=== PATIENT | female | born 1950 | race Caucasian/White ===

== ENCOUNTER 2019-06-02 12:30 | Outpatient (RCR) | payer MEDICARE, MEDICAID, SELFPAY ==
--- NOTE | 2019-04-13 13:41 | PTOPEVAL ---
Thank you for referring this patient to [facility]. Please review, sign, date and return this plan of care EL. Pt seen for physical therapy evaluation today due to chronic back and knee pain, decreased endurance from recent bout of pneumonia and decreased tolerance with daily activities. She requires additional skilled therapy for instruction in HEP and progression of functional mobility. I agree with and certify that the following plan of care is medically necessary. Referring Physician Date Admitting Provider: Brandon Linda MD Referring Provider: *PT Outpatient Evaluation Start: 04/13/19 12:28 Freq: Status: Active Protocol: Document 04/13/19 12:30 CAP (Rec: 04/13/19 13:32 CAP [email or web address]) Therapy Assessment Status Assessment Status Assessment Status Evaluation Outpatient Past Medical History Neurological History Hx Neurological Disorders No Significant History Cardiovascular History Hx Hypercholesterolemia Yes Hx Hypertension Yes Respiratory History Hx Bronchitis Yes Hx Chronic Obstructive Pulmonary Disease Yes (COPD) Hx Sleep Apnea Yes Gastrointestinal History Hx Gastrointestinal Disorders No Significant History Genitourinary History Hx Genitourinary Disorders No Significant History Musculoskeletal History Hx Arthritis Yes Hx Scoliosis Yes Hematological History Hx Hematological Disorders No Significant History Endocrine History Hx Hypothyroidism Yes HEENT History Hx Dental Problems Yes Reproductive History Hx Hysterectomy Yes Psychosocial History Hx Anxiety Yes: Panic attacks Hx Depression Yes Pain History History of Any Previous or Ongoing No Significant History Instance of Pain Anesthesia History Hx Anesthesia Reactions No Significant History Evaluation Information Problem Diagnosis brian knee and back pain Onset years Cause chronic Subjective Information Pt reports prolonged back and Query Text:As Reported By Patient/ hip pain. She reports Family increased brian lat hip pain with lying sidelying. Reports her knee is constant, but increased with during the winter. She reports she has been in the hospital due to pneumonia. STates she has has 3 bouts of pneumonia in 2019. She has been sleeping in her recliner at home due to pneumonia. [facility] spends most
--- NOTE | 2019-04-28 12:34 | PCPTNOTE ---
Patient called & cancelled scheduled appointment this date due to weather.
--- NOTE | 2019-05-05 15:17 | PCPTNOTE ---
Patient called & cancelled scheduled appointment this date due to illness.
--- NOTE | 2019-05-12 13:47 | PCPTNOTE ---
Patient did not show up for scheduled appointment this date.Called pt due to no show.
--- NOTE | 2019-05-12 17:24 | PTOPEVAL ---
Thank you for referring this patient to [facility]. Please review, sign, date and return this plan of care EL. Pt has attended 3 therapy visits to address pain and limited functional mobility tolerance. She demonstrates limited progress with strength, functional mobility and endurance. She demonstrates improved balance. Cont PT 1x/wk x 3 wk. I agree with and certify that the following plan of care is medically necessary. Referring Physician Date Attending Provider: Brandon Linda MD Referring Provider: *PT Outpatient Re-Evaluation Start: 04/13/19 12:28 Freq: Status: Active Protocol: Document 05/12/19 13:52 CAP (Rec: 05/12/19 14:22 CAP [email or web address]) Therapy Assessment Status Assessment Status Evaluation Information Problem Diagnosis brian knee and back pain Onset years Cause chronic Additional Evaluation Detail Pt reports prolonged back and hip pain. She reports increased brian lat hip pain with lying sidelying. Reports her knee is constant, but increased with during the winter. She reports she has been in the hospital due to pneumonia. STates she has has 3 bouts of pneumonia in 2019. She has been sleeping in her recliner at home due to pneumonia. States spends most of her day in her recliner. She does have an elevating bed to assist with her breathing. States she performs limited community mobility. She will use a scooter at [facility], but will walk [place]. She performs mostly household mobility. States she had a fall ~ 1 month ago when she tripped on [facility]. She has been using oxygen since 2008. She is on 2L O2 at rest and 4 L with activities, but she forgets to increase with activity. 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 She tries to stay on 1st rooms at the hotels. Pain Assessment Timing of Pain Assessment Timing o
--- NOTE | 2019-05-26 15:28 | PCPTNOTE ---
Patient's scheduled appointment cancelled this date due to being 30 mins late, when asked why she was late, she stated that she thought all of her appointment were at 1:30pm. Also, asked is she received a print out of her schedule, she stated yes but, didn't know where it was. Gave her a new printout, for next appointment on 06/02/19.[ ] [ ]
[2019-06-02 12:40] VITALS: PULSE 104; O2SAT 92
--- NOTE | 2019-06-02 16:45 | PTOPEVAL ---
Thank you for referring this patient to [facility]. Please review, sign, date and return this plan of care EL. Pt has attended 5 therapy visits with 3 cancelled appointments to address her chronic pain. She has achieved maximal potential with skilled therapy with indep with HEP. DC skilled therapy at this time. I agree with and certify that the following plan of care is medically necessary. Referring Physician Date Attending Provider: Brandon Linda MD Referring Provider: *PT Outpatient Discharge Note Start: 04/13/19 12:28 Freq: Status: Active Protocol: Document 06/02/19 12:40 CAP (Rec: 06/02/19 13:27 CAP [email or web address]) Therapy Assessment Status Assessment Status Assessment Status Discharge Evaluation Information Problem Diagnosis brian knee and back pain Onset years Cause chronic Subjective Information She reports she is able to Query Text:As Reported By Patient/ move better. She is able to Family stand better. Reports her leg is better with walking and standing. She is performing a walking and HEP consistently. She had a fall 1 1/2 wks ago when she was protecting her dog. She hit her full right side on the steps/door frame. She trying to walk more, but remains limited by her breathing. She is to perform standing for 10-15' intervals before she has to rest. She is not monitoring her O2 level, but basing regina on fatigue and SOB. She will walk shorter distance in the community without difficulty, but [facility]. Pain Assessment Timing of Pain Assessment Timing of Pain Assessment Re-assessment Pain Scale Pain Scale Used Numeric (1 - 10) Self Report Pain Assessment Left Foot/Feet Reported Pain Level 2 Pain Description Dull Pain Frequency Chronic Current Pain Intensity 2 Pain Behaviors None Bilateral Back Reported Pain Level 0 Pain Description Aching Pain Frequency Chronic,Intermittent Current Pain Intensity 0 Greatest Pain Intensity 3 Pain Behaviors None Bilateral Knee(s) Reported Pain Level 0 Pain Score Pain Score
== END 2019-06-05 13:53 | disposition home or self-care (01) ==
LOC: ANHPT 12:30
PROVIDERS: PCP Internal Medicine; Visit Provider Orthopaedic Surgery
DX: M25.561 Pain in right knee (principal); M25.562 Pain in left knee; G89.29 Other chronic pain; M54.5 Low back pain
CPT/HCPCS: 36415; 86317; 86648; 86774; 97110; 97162; 97530

== ENCOUNTER 2019-06-28 16:23 | Outpatient (CLI) | payer MEDICARE, MEDICAID, SELFPAY ==
[2019-06-28 19:04] LABS: Folic Acid > 20.0 ng/mL (2.76->20); Vitamin B12 > 1000.0 pg/mL (239-931)
== END 2019-06-28 16:24 | disposition home or self-care (01) ==
LOC: ANHLAB 16:27
PROVIDERS: Nurse Practitioner; PCP Internal Medicine; Visit Provider Nurse Practitioner Family
DX: E03.9 Hypothyroidism, unspecified (principal); R53.83 Other fatigue
CPT/HCPCS: 36415; 82607; 82746; 84443

== ENCOUNTER 2019-07-08 01:23 | Emergency (ER) | payer MEDICARE, MEDICAID, SELFPAY ==
--- NOTE | ~2019-07-08 | XR_ITS ---
EXAMINATION: XR chest 1V portable DATE: 07/08/2019 01:58 INDICATION: COPD presenting with shortness of breath TECHNIQUE: frontal view of the chest was obtained. COMPARISON: Chest radiograph dated 03/21/2019 FINDINGS: Increased lucency and architectural distortion in the upper lung zones, right greater than left consi stent with emphysema. Mild bibasilar atelectasis. No pulmonary edema, pleural effusion or pneumothora x The cardiomediastinal silhouette is normal. IMPRESSION: 1. Emphysema with mild bibasilar atelectasis. Reviewed, dictated and finalized at location A.
[2019-07-08 01:30] VITALS: BP 135/94; PULSE 105; RESP 20; TEMP 36.7; O2SAT 96
[2019-07-08 01:33] VITALS: PULSE 103
--- NOTE | 2019-07-08 01:34 | ECG_ITS ---
Measurements Intervals [place] Rate: 104 P: 65 WV: 106 QRS: 95 QRSD: 94 T: 72 QT: 351 QTc: 462 Interpretive Statements SINUS TACHYCARDIA WITH SHORT WV INTERVAL RIGHT AXIS DEVIATION EARLY PRECORDIAL R/S TRANSITION BORDERLINE T WAVE ABNORMALITY- ANT/LAT LEADS BASELINE ARTIFACT- I, II, III, AVR, V3 ABNORMAL ECG Electronically Signed On 07-08-2019 8:27:04 CDT by Freedom Mendoza D.O.
--- NOTE | 2019-07-08 01:42 | ED.SOB ---
HPI - SOB/Dyspnea General Chief Complaint: Shortness of Breath/Dyspnea Stated Complaint: SOB Time Seen by Provider: 07/08/19 01:36 Source: patient and RN notes reviewed Mode of arrival: ambulatory Limitations: no limitations History of Present Illness HPI Narrative: A 68 y/o female presents to the ED with worsening SOB for the past 3 days. She states that she ran out of her O2 tonight and that the SOB got significantly worse, so she decided to come to the ED. She reports that since she has been placed on O2 in the ED that her SOB has improved. She denies any fevers, chills, or CP. MD elicited complaint: shortness of breath Pertinent past history: COPD and pneumonia Onset (ago): day(s) (3) Timing: improved (once placed on O2 in the ED) and progressively worsening Known history of: COPD Associated symptoms: denies other symptoms Treatment prior to arrival: none Related Data Home Medications Medication Instructions Recorded Confirmed albuterol sulfate 90 mcg/actuation 2 puff INHALATION Q4H PRN 02/23/19 05/29/19 aerosol inhaler ropinirole 1 mg tablet 1 mg PO HS tablet 02/23/19 05/29/19 tiotropium bromide 18 mcg capsule 1 cap INHALATION DAILY 02/23/19 05/29/19 with inhalation device Daliresp 500 mcg PO DAILY 03/21/19 05/29/19 ferrous sulfate [Iron (ferrous 325 mg PO DAILY 03/24/19 05/29/19 sulfate)] fluticasone propion-salmeterol 1 inh INHALATION Q12H 03/24/19 05/29/19 [Advair Diskus] Allergies Allergy/AdvReac Type Severity Reaction Status Date / Time Penicillins Allergy Unknown Swelling Verified 05/29/19 15:11 Sulfa (Sulfonamide Allergy Unknown Rash Verified 05/29/19 15:11 Antibiotics) Review of Systems Review of Systems: All systems reviewed & are unremarkable except as noted in HPI and below Constitutional: Constitutional: Denies chills and Denies fever(s) Cardiovascular: Cardiovascular: Denies chest pain Respiratory: Respiratory: Reports dyspnea PMFSH Past Medical History Medical History Anxiety Chest pain in adult Chronic bronchitis Chronic obstructive pulmonary disease Chronic respiratory failure with hypoxia Depression HORN (dyspnea on exertion) Dyslipidemia Eczema Essential hypertension Fatigue Gastro-esophageal reflux disease without esophagitis GERD (gastroesophageal reflux disease) Headache Hiatal hernia History of home oxygen therapy 2L NC at rest, 4L NC with activity HTN (hypertension) Hyperlipidemia Hypothyroid Mixed hyperlipidemia (10/28/18) Obstructive sleep apnea Palpitations with regular cardiac rhythm Pneumonia Restless leg syndrome Seasonal allergies Tachycardia Ulcer Uterine cancer Surgical History Surgical History History of carpal tunnel release History of hysterectomy History of tonsillectomy Family History Family History Mother Hypertension Family history of chronic obstructive pulmonary disease Father Asthma Family history of chronic obstructive pulmonary disease Sibling Family history of malignant neoplasm Social History Social History Smoking packs per day: 2.5 Smoking cigarettes per day: 50.0 Years smoked: 40 Smoking pack-years: 100.00 Smoking status: Former smoker Second hand tobacco smoke exposure: Yes Smoking end date: 04/12/07 Alcohol intake: never Substance use: never 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
[2019-07-08] MEDS: ALBUTEROL SULFATE NEB 2.5 MG/0.5 ML INH 10 MG INHALATION (01:56)
[2019-07-08 01:57] VITALS: PULSE 95; RESP 22
[2019-07-08] MEDS: IPRATROPIUM BR 0.02% INH SOLN 0.5 MG/2.5 ML VIAL 1 MG INHALATION (01:57)
[2019-07-08 01:59] LABS: Basophils Percent Auto 0.5 % (0.2-1.2); Eosinophils Absolute Auto 0.2 K/mm3 (0-0.3); Eosinophils Percent Auto 2.7 % (0-4.4); Hematocrit 42.1 % (37.0-47.0); Hemoglobin 13.9 g/dL (12.0-15.0); Immature Granulocyte Absolute 0.02 K/mm3 (0.00-0.031); Immature Granulocyte Percent A 0.3 % (0-0.5); Lymphocytes Absolute Auto 1.58 K/mm3 (0.9-3.2); Mean Corpuscular Hemoglobin 30.4 pg (26-34); Mean Corpuscular Volume 92.1 fl (80-100); Mean Platelet Volume 10.4 fl (7.4-10.4); Monocytes Absolute Auto 0.8 K/mm3 (0.1-0.6); Monocytes Percent Auto 10.8 % (2.6-8.5); Neutrophils Absolute Auto 4.9 K/mm3 (1.3-6.7); Neutrophils Percent Auto 64.7 % (45.5-73.1); Platelet Count Result 383 k/mm3 (150-375); Red Blood Count 4.57 M/mm3 (4.2-5.4); Red Cell Distribution Width 12.6 % (11.5-14.5); White Blood Count 7.5 K/mm3 (4.5-10.0)
[2019-07-08 02:06] LABS: Blood Urea Nitrogen 8 mg/dL (7-17); Calcium 8.7 mg/dL (8.4-10.2); Carbon Dioxide 24 mmol/L (22-30); Chloride 104 mmol/L (98-107); Estimated CRCL calculation 70 ml/min; Estimated Glomerular Filt Rate > 60; Glucose 111 mg/dL (65-105); Potassium 3.6 mmol/L (3.4-5.0); Sodium 137 mmol/L (137-145)
[2019-07-08 02:40] VITALS: BP 108/72; PULSE 91; RESP 21; O2SAT 97
[2019-07-08 03:04] VITALS: PULSE 99; RESP 21
[2019-07-08 03:22] VITALS: BP 131/76; PULSE 93; RESP 20; TEMP 36.8; O2SAT 95
== END 2019-07-08 03:25 | disposition home or self-care (01) ==
PROVIDERS: Emergency Provider Emergency Medicine; PCP Internal Medicine
DX: J44.9 Chronic obstructive pulmonary disease, unspecified (principal); I10 Essential (primary) hypertension; E03.9 Hypothyroidism, unspecified; E78.2 Mixed hyperlipidemia; G25.81 Restless legs syndrome; G47.33 Obstructive sleep apnea (adult) (pediatric); J96.11 Chronic respiratory failure with hypoxia; R00.0 Tachycardia, unspecified; R94.31 Abnormal electrocardiogram [ECG] [EKG]
CPT/HCPCS: 36415; 71045; 80048; 85025; 93005; 99284

== ENCOUNTER 2019-07-27 19:42 | Emergency (ER) | payer MEDICARE, MEDICAID, SELFPAY ==
--- NOTE | ~2019-07-27 | CT_ITS ---
EXAMINATION: CT cervical spine wo con DATE: 07/27/2019 20:44 INDICATION: Status post fall. Head injury. TECHNIQUE: Computed tomography (CT) of the cervical spine was performed without intravenous contrast. The dose-length product was 437 mGy-cm. Automated exposure control and iterative reconstruction tech nique were employed. COMPARISON: None FINDINGS: There is reversal of cervical lordosis. There is degenerative anterolisthesis at C2-3 and C 3-4. There is significant disc narrowing at C3-4, C4-5, C5-6 and C6-7. There is disc narrowing at C7- T1 with degenerative anterolisthesis. There are emphysematous changes of the lung apices. No acute fr acture or traumatic malalignment. Odontoid process within normal limits. There is moderate multilevel facet and uncinate hypertrophy. No evidence for perched facet. No significant paraspinal soft tissue abnormality. IMPRESSION: 1. No acute abnormality of the cervical spine. 2: Severe cervical spondylosis. Reviewed, dictated and finalized at location A.
--- NOTE | ~2019-07-27 | XR_ITS ---
XR chest 2V 07/27/2019 21:03 Indication: Shortness of breath. Hypertension. COPD. Procedure: 2 view chest Comparison: Comparison to multiple prior studies sequentially, with oldest reviewed study dated 09/05. Findings: Heart size normal. There are emphysematous changes. Right basilar infiltrates. No pleural e ffusion or pneumothorax. No edema. No acute osseous abnormality. Impression: 1: Right basilar infiltrates may represent pneumonia and/or atelectasis. Reviewed, dictated and finalized at location A. Impression: 1: Right basilar infiltrates may represent pneumonia and/or atelectasis.
--- NOTE | ~2019-07-27 | CT_ITS ---
EXAMINATION: CT brain wo con DATE: 07/27/2019 20:43 INDICATION: Status post fall. Head injury. Headache. TECHNIQUE: Computed tomography (CT) of the head was performed without intravenous contrast. The dose- length product was 605.33 mGy-cm. The mA was adjusted according to patient size. Iterative reconstruc tion technique was employed. COMPARISON: CT dated 01/10/2016 FINDINGS: Normal brain parenchymal volume. There are scattered mild periventricular and subcortical w meghann matter changes, most likely related to small vessel ischemic disease (microangiopathy). 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 No ventriculomegaly or midline shift. Basilar ciste rns are patent. No acute intracranial hemorrhage, infarction, mass or mass effect. Paranasal sinus an d mastoid air cells are pneumatized. No depressed skull fractures. IMPRESSION: 1. No acute intracranial abnormality. 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 Reviewed, dictated and finalized at location A.
--- NOTE | ~2019-07-27 | XR_ITS ---
XR hip LT 2V w AP pelvis 07/27/2019 21:03 INDICATION: Left hip pain after fall. Previous fracture. PROCEDURE: AP pelvis and 3 views left hip COMPARISON: 08/31/2012 FINDINGS: Fracture, dislocation or subluxation is not identified. Pelvic rings are intact. There is l ower lumbar spondylosis. Stable benign-appearing periosteal reaction proximal left femoral shaft, lik dejan from previous fracture. The soft tissues appear within normal limits. No foreign bodies are iden tified. IMPRESSION: 1: NO ACUTE BONE OR JOINT ABNORMALITY IDENTIFIED. Reviewed, dictated and finalized at location A.
[2019-07-27 19:46] VITALS: BP 149/89; PULSE 113; RESP 22; TEMP 36.4; O2SAT 98
--- NOTE | 2019-07-27 20:07 | ECG_ITS ---
Measurements Intervals [place] Rate: 112 P: 80 VA: 124 QRS: 94 QRSD: 91 T: 78 QT: 336 QTc: 459 Interpretive Statements SINUS TACHYCARDIA RIGHT AXIS DEVIATION EARLY PRECORDIAL R/S TRANSITION BASELINE ARTIFACT- I, II, III, AVR, AVL, AVF, V1-V2, V4-V6 ABNORMAL ECG Electronically Signed On 07-28-2019 7:09:22 CDT by Freedom Mendoza D.O.
--- NOTE | 2019-07-27 20:09 | ED.GENADULT ---
HPI - General Adult General Chief complaint: Shortness of Breath/Dyspnea Stated complaint: sob Time Seen by Provider: 07/27/19 20:07 Source: patient and EMS Mode of arrival: EMS Limitations: no limitations History of Present Illness HPI narrative: Patient is a 68-year-old who presents via EMS for headache pain and hip pain. Patient states that she rolled out of her bed last night, hit her head on the floor and has had left hip pain since the fall. She was able to ambulate this morning, but reports increasing headache pain, neck pain and hip pain this afternoon. Patient states that the pain became so severe that she wanted to seek care in the emergency department. Patient denies loss of consciousness. She is able to stand up and go back to sleep after the fall this morning. She denies any numbness. No vision changes. She reports nausea without emesis. Patient has taken Tylenol with minimal improvement in the pain. Patient has a history of COPD, typically is on 2 to 3 L via nasal cannula at home, states she initially felt short of breath when she came here, but since being at rest has no shortness of breath. No fever, no worsening productive cough, no chest pain. Related Data Home Medications Medication Instructions Recorded Confirmed albuterol sulfate 90 mcg/actuation 2 puff INHALATION Q4H PRN 02/23/19 05/29/19 aerosol inhaler ropinirole 1 mg tablet 1 mg PO HS tablet 02/23/19 05/29/19 Daliresp 500 mcg PO DAILY 03/21/19 05/29/19 ferrous sulfate [Iron (ferrous 325 mg PO DAILY 03/24/19 05/29/19 sulfate)] fluticasone propion-salmeterol 1 inh INHALATION Q12H 03/24/19 05/29/19 [Advair Diskus] Allergies Allergy/AdvReac Type Severity Reaction Status Date / Time Penicillins Allergy Unknown Swelling Verified 07/27/19 19:58 Sulfa (Sulfonamide Allergy Unknown Rash Verified 07/27/19 19:58 Antibiotics) Review of Systems Review of Systems: Narrative: CONSTITUTIONAL: Denies fever, chills, or sweats. EYES: Denies visual changes, redness, or discharge. ENT: Denies rhinorrhea, congestion, sore throat, or otalgia. CARDIOVASCULAR: Denies chest pain, palpitations, or edema. RESPIRATORY: Reports chronic cough, denies current dyspnea. GASTROINTESTINAL: Denies abdominal pain, reports nausea without emesis GENITOURINARY: Denies dysuria or hematuria. SKIN: Denies rash or itching. MUSCULOSKELETAL: Denies back pain, reports left hip pain, denies myalgia. NEUROLOGIC: Reports headache, denies numbness, or weakness. [facility] Past Medical History Medical History Anxiety Bilateral primary osteoarthritis of knee Chest pain in adult Chronic bronchitis Chronic obstructive pulmonary disease Chronic respiratory failure with hypoxia Depression HORN (dyspnea on exertion) Dyslipidemia Eczema Essential hypertension Fatigue Gastro-esophageal reflux disease without esophagitis GERD (gastroesophageal reflux disease) Headache Hiatal hernia History of home oxygen therapy 2L NC at rest, 4L NC with activity HTN (hypertension) Hyperlipidemia Hypothyroid Mixed hyperlipidemia (10/28/18) Obstructive sleep apnea Palpitations with regular cardiac rhythm Pneumonia Restless leg syndrome Seasonal allergies Tachycardia Ulcer Uterine cancer Surgical History Surgical History History of carpal tunnel release History of hysterectomy History of tonsillectomy Family History Family History Mother Hypertension Family history of chronic obstructive pulmonary disease Sibling Family history of malignant neoplasm Social History Social History Smoking packs per day: 2.5 Smoking cigarettes per day: 50.0 Years smoked: 40 Smoking pack-years: 100.00 Smoking status: Former smoker Second hand tobacco smoke exposure: Yes Smoking
[2019-07-27] MEDS: ONDANSETRON INJ 4 MG/2 ML VIAL IV PUSH (21:04)
[2019-07-27] MEDS: MORPHINE SULFATE 4 MG/ML INJ 2 MG IV PUSH (21:05)
[2019-07-27 21:09] VITALS: BP 131/87; PULSE 95; RESP 13; TEMP 36.9; O2SAT 99
[2019-07-27 21:11] LABS: Basophils Absolute Auto 0.1 K/mm3 (0.0-0.1); Basophils Percent Auto 0.5 % (0.2-1.2); Eosinophils Absolute Auto 0.2 K/mm3 (0-0.3); Eosinophils Percent Auto 1.4 % (0-4.4); Hematocrit 43.6 % (37.0-47.0); Hemoglobin 14.4 g/dL (12.0-15.0); Immature Granulocyte Absolute 0.09 K/mm3 (0.00-0.031); Immature Granulocyte Percent A 0.7 % (0-0.5); Lymphocytes Absolute Auto 1.91 K/mm3 (0.9-3.2); Lymphocytes Percent Auto 14.7 % (18.3-44.2); Mean Corpuscular Hemoglobin 30.9 pg (26-34); Mean Corpuscular Volume 93.6 fl (80-100); Mean Platelet Volume 10.9 fl (7.4-10.4); Monocytes Absolute Auto 1.7 K/mm3 (0.1-0.6); Monocytes Percent Auto 13.1 % (2.6-8.5); Neutrophils Absolute Auto 9.1 K/mm3 (1.3-6.7); Neutrophils Percent Auto 69.6 % (45.5-73.1); Platelet Count Result 362 k/mm3 (150-375); Red Blood Count 4.66 M/mm3 (4.2-5.4)
[2019-07-27 21:21] LABS: INR 0.9; Prothrombin Time 11.4 Seconds (11.1-14.7)
[2019-07-27 21:22] LABS: Partial Thromboplastin Time 30.3 SECONDS (22.3-36.8)
[2019-07-27 21:23] LABS: Alanine Aminotransferase 21 U/L (4-35); Albumin Level 4.1 g/dL (3.5-5.1); Alkaline Phosphatase 137 U/L (38-126); Aspartate Amino Transferase 24 U/L (14-36); Bilirubin,Total 0.4 mg/dL (0.2-1.3); Blood Urea Nitrogen 15 mg/dL (7-17); Carbon Dioxide 25 mmol/L (22-30); Chloride 104 mmol/L (98-107); Estimated Glomerular Filt Rate > 60; Glucose 104 mg/dL (65-105); Potassium 4.2 mmol/L (3.4-5.0); Sodium 136 mmol/L (137-145)
[2019-07-28 13:31] LABS: SARS-CoV-2 RNA PCR Negative
== END 2019-07-27 22:24 | disposition home or self-care (01) ==
PROVIDERS: Emergency Provider Emergency Medicine; PCP Internal Medicine
DX: S06.0X0A Concussion without loss of consciousness, initial encounter (principal); S76.012A Strain of muscle, fascia and tendon of left hip, initial encounter; J18.9 Pneumonia, unspecified organism; Z20.828 Contact with and (suspected) exposure to other viral communicable diseases; M17.0 Bilateral primary osteoarthritis of knee; J44.9 Chronic obstructive pulmonary disease, unspecified; J96.11 Chronic respiratory failure with hypoxia; F32.9 Major depressive disorder, single episode, unspecified; E78.5 Hyperlipidemia, unspecified; I10 Essential (primary) hypertension; Z99.81 Dependence on supplemental oxygen; E03.9 Hypothyroidism, unspecified; E78.2 Mixed hyperlipidemia; G47.33 Obstructive sleep apnea (adult) (pediatric); G25.81 Restless legs syndrome; Z85.42 Personal history of malignant neoplasm of other parts of uterus; Z87.891 Personal history of nicotine dependence; Z77.22 Contact with and (suspected) exposure to environmental tobacco smoke (acute) (chronic); R00.0 Tachycardia, unspecified; R94.31 Abnormal electrocardiogram [ECG] [EKG]; M47.812 Spondylosis without myelopathy or radiculopathy, cervical region; W06.XXXA Fall from bed, initial encounter
CPT/HCPCS: 36415; 70450; 71046; 72125; 73502; 80053; 85025; 85610; 85730; 87635; 93005; 96365; 96375; 99284; C9803; J0131; J2270; J2405; U0003

== ENCOUNTER 2019-11-11 16:41 | Emergency (ER) | payer MEDICARE, MEDICAID, SELFPAY ==
--- NOTE | ~2019-11-11 | XR_ITS ---
EXAMINATION: XR chest 1V portable 11/11/2019 17:31 INDICATION: Shortness of breath. COPD. PROCEDURE: AP portable chest COMPARISON: Comparison to multiple prior studies sequentially, with oldest reviewed study dated 01/10. FINDINGS: The lungs are clear. The lungs are hyperinflated which is consistent with, but not diagnost ic of chronic obstructive pulmonary disease. The cardiomediastinal silhouette is within normal limits . There are no pleural effusions. There is no pneumothorax suspected. IMPRESSION: 1: NO ACUTE CARDIOPULMONARY DISEASE. Reviewed, dictated and finalized at location A.
--- NOTE | ~2019-11-11 | CT_ITS ---
EXAMINATION: CTA chest PE protocol DATE: 11/11/2019 18:03 CDT INDICATION: Shortness of breath TECHNIQUE: Computed tomographic angiography (CTA) of the chest was performed with 100 mL Omnipaque-35 0 intravenous contrast. The dose-length product was 970.26 mGy-cm. Maximum intensity projection 3D-re constructions of the aorta and other arteries were constructed by the technologist on a separate work station. Automated exposure control and iterative reconstruction technique were employed. COMPARISON: CT dated 01/25/2019 FINDINGS: No significant pleural or pericardial effusion. Study is technically adequate without evide nce for pulmonary embolism. No significant pleural or pericardial effusion. No thoracic lymphadenopat hy. Heart size normal. There is emphysema. No focal pneumonia. No pneumothorax. No suspicious pulmona ry nodules or masses. No endobronchial lesions. There is a right renal cyst. There is a healed left n inth rib fracture. No acute osseous abnormality. IMPRESSION: 1. No acute cardiopulmonary disease. No evidence for pulmonary embolism. 2: Emphysema. Reviewed, dictated and finalized at location A.
[2019-11-11 16:53] VITALS: BP 153/124; PULSE 113; RESP 18; TEMP 36.8; O2SAT 96
[2019-11-11 16:56] VITALS: PULSE 118
--- NOTE | 2019-11-11 16:56 | ECG_ITS ---
Measurements Intervals [place] Rate: 115 P: 77 NE: 147 QRS: 88 QRSD: 84 T: 72 QT: 335 QTc: 465 Interpretive Statements SINUS TACHYCARDIA EARLY PRECORDIAL R/S TRANSITION BASELINE WANDER- V2-V6 ABNORMAL ECG Electronically Signed On 11-11-2019 19:47:20 CDT by Freedom Mendoza D.O.
--- NOTE | 2019-11-11 16:57 | ED.GENADULT ---
HPI - General Adult General Chief complaint: Shortness of Breath/Dyspnea Stated complaint: shortness of breath Time Seen by Provider: 11/11/19 16:56 Source: patient History of Present Illness HPI narrative: 68 years old white female, lives alone, drove herself to the emergency room complaining of increased shortness of breath over the last 3 days, history of COPD, currently patient on 2 L of oxygen at rest and 4 L on exertion. Patient denies any new coughing, fever, chills, exposure to anybody with COVID-19. Patient reports chronic cough up of sputum which is not different than before Related Data Home Medications Medication Instructions Recorded Confirmed albuterol sulfate 90 mcg/actuation 2 puff INHALATION Q4H PRN 02/23/19 05/29/19 aerosol inhaler Allergies Allergy/AdvReac Type Severity Reaction Status Date / Time Penicillins Allergy Unknown Swelling Verified 11/11/19 17:05 Sulfa (Sulfonamide Allergy Unknown Rash Verified 11/11/19 17:05 Antibiotics) Review of Systems Review of Systems: Narrative: CONSTITUTIONAL: Denies fever, chills, or sweats. EYES: Denies visual changes, redness, or discharge. ENT: Denies rhinorrhea, congestion, sore throat, or otalgia. CARDIOVASCULAR: Denies chest pain, palpitations, or edema. RESPIRATORY: Denies cough or dyspnea. GASTROINTESTINAL: Denies abdominal pain, nausea, vomiting, or diarrhea. GENITOURINARY: Denies dysuria or hematuria. SKIN: Denies rash or itching. MUSCULOSKELETAL: Denies back pain, joint pain, or myalgia. NEUROLOGIC: Denies headache, numbness, or weakness. PSYCHIATRIC: Denies anxiety or depression. [facility] Past Medical History Medical History Anxiety Bilateral primary osteoarthritis of knee Chest pain in adult Chronic bronchitis Chronic obstructive pulmonary disease Chronic respiratory failure with hypoxia Depression HORN (dyspnea on exertion) Dyslipidemia Eczema Essential hypertension Fatigue Gastro-esophageal reflux disease without esophagitis GERD (gastroesophageal reflux disease) Headache Hiatal hernia History of home oxygen therapy 2L NC at rest, 4L NC with activity HTN (hypertension) Hyperlipidemia Hypothyroid Mixed hyperlipidemia (10/28/18) Obstructive sleep apnea Palpitations with regular cardiac rhythm Pneumonia Restless leg syndrome Seasonal allergies Tachycardia Ulcer Uterine cancer Surgical History Surgical History History of carpal tunnel release History of hysterectomy History of tonsillectomy Family History Family History Mother Hypertension Family history of chronic obstructive pulmonary disease Sibling Family history of malignant neoplasm Social History Social History Smoking packs per day: 2.5 Smoking cigarettes per day: 50.0 Years smoked: 40 Smoking pack-years: 100.00 Smoking status: Former smoker Second hand tobacco smoke exposure: Yes Smoking end date: 04/12/07 Alcohol intake: never Substance use: never 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 Heart: Regular rate/rhythm Abdomen: Soft, nontender, no organomegaly, quiet bowel sounds Vascular: Normal peripheral pulses, normal capillary refill. Musculoskeletal: Normal range of motion, nontender back Neurologic: Alert and oriented ?3, ADMINISTRATIVE ASSISTANT FRONT DESK is normal as tested, no gross mo
[2019-11-11 17:10] LABS: Basophils Percent Auto 0.5 % (0.2-1.2); Eosinophils Absolute Auto 0.1 K/mm3 (0-0.3); Eosinophils Percent Auto 1.4 % (0-4.4); Hematocrit 44.7 % (37.0-47.0); Hemoglobin 15.1 g/dL (12.0-15.0); Immature Granulocyte Absolute 0.04 K/mm3 (0.00-0.031); Immature Granulocyte Percent A 0.5 % (0-0.5); Lymphocytes Percent Auto 13.5 % (18.3-44.2); Mean Corpuscular HGB Conc 33.8 g/dl (32-36); Mean Corpuscular Hemoglobin 30.9 pg (26-34); Mean Corpuscular Volume 91.4 fl (80-100); Mean Platelet Volume 10.3 fl (7.4-10.4); Monocytes Absolute Auto 0.8 K/mm3 (0.1-0.6); Monocytes Percent Auto 8.9 % (2.6-8.5); Neutrophils Absolute Auto 6.7 K/mm3 (1.3-6.7); Neutrophils Percent Auto 75.2 % (45.5-73.1); Platelet Count Result 302 k/mm3 (150-375); Red Blood Count 4.89 M/mm3 (4.2-5.4); Red Cell Distribution Width 12.8 % (11.5-14.5); White Blood Count 8.9 K/mm3 (4.5-10.0)
[2019-11-11 17:22] LABS: Alanine Aminotransferase 23 U/L (4-35); Albumin Level 4.1 g/dL (3.5-5.1); Alkaline Phosphatase 106 U/L (38-126); Anion Gap 11.8 mmol/L (7-16); Aspartate Amino Transferase 28 U/L (14-36); Bilirubin,Total 0.2 mg/dL (0.2-1.3); Blood Urea Nitrogen 11 mg/dL (7-17); Calcium 9.2 mg/dL (8.4-10.2); Carbon Dioxide 23 mmol/L (22-30); Chloride 107 mmol/L (98-107); Estimated Glomerular Filt Rate > 60; Glucose 97 mg/dL (65-105); Potassium 3.8 mmol/L (3.4-5.0); Sodium 138 mmol/L (137-145)
[2019-11-11 17:24] LABS: D Dimer 0.72 ug/mL (<0.48)
[2019-11-11 17:27] LABS: Alveolar/Arterial O2 Gradient 70.5 mmHg; Base Excess ABG -0.7 mEq/l (+/-2.0); Device NASAL CANNULA; Fractional Inspired Oxygen 28 %; HCO3 ABG 24.1 mEq/l (22.0-26.0); Oxygen Content ABG 20.8 %vol (16.0-22.0); Oxygen Saturation ABG 95.9 % (95.0-100.0); Oxyhemoglobin 95.2 % THb (90.0-100.0); PCO2 ABG 40.7 mmHg (35.0-45.0); PO2 ABG 81.1 mmHg (80.0-100.0); Site Drawn LEFT BRACHIAL; Total Hemoglobin 15.5 g/dL (12.0-18.0); pH ABG 7.391 (7.350-7.450)
[2019-11-11 17:32] LABS: Troponin I < 0.012 ng/mL (0.000-0.034)
[2019-11-11] MEDS: methylPREDNISolone SOD SUCC 125 MG VIAL IV PUSH (17:35)
[2019-11-11 18:33] VITALS: BP 145/83; PULSE 111; RESP 21; O2SAT 99
== END 2019-11-11 18:34 | disposition home or self-care (01) ==
PROVIDERS: Emergency Provider Emergency Medicine; PCP Internal Medicine
DX: J44.9 Chronic obstructive pulmonary disease, unspecified (principal); J96.11 Chronic respiratory failure with hypoxia; E03.9 Hypothyroidism, unspecified; E78.2 Mixed hyperlipidemia; I10 Essential (primary) hypertension; G25.81 Restless legs syndrome; G47.33 Obstructive sleep apnea (adult) (pediatric); K21.9 Gastro-esophageal reflux disease without esophagitis; M17.10 Unilateral primary osteoarthritis, unspecified knee; F41.9 Anxiety disorder, unspecified; F32.9 Major depressive disorder, single episode, unspecified; Z85.42 Personal history of malignant neoplasm of other parts of uterus; Z87.891 Personal history of nicotine dependence; R00.0 Tachycardia, unspecified
CPT/HCPCS: 36415; 36600; 71045; 71275; 80048; 80076; 82805; 84484; 85025; 85380; 93005; 96374; 99284; J2930; Q9967

== ENCOUNTER 2019-11-30 14:50 | Outpatient (CLI) | payer MEDICARE, MEDICAID, SELFPAY ==
[2019-11-30 15:16] LABS: Add Urine Microscopic? YES; Amorphous Sediment Urine Few; Appearance Urine Clear (Clear); Bilirubin Urine Negative (Negative); Color Urine Amber (Yellow); Glucose Urine UA Negative (Negative); Ketones Urine Negative (Negative); Leukocyte Esterase Ur Negative LEU/UL (Negative); Mucus Urine Rare /lpf; Nitrate Urine Positive (Negative); Protein Urine Negative (Negative); Specific Grav Ur 1.018 (1.001-1.035); Squamous Epithelial Cell Urine Occasional /hpf (Few); WBC Urine >75 /hpf
[2019-11-30 15:18] LABS: Blood Urine Negative (Negative)
== END 2019-11-30 14:51 | disposition home or self-care (01) ==
PROVIDERS: PCP Internal Medicine; Visit Provider Nurse Practitioner
DX: R39.9 Unspecified symptoms and signs involving the genitourinary system (principal)
CPT/HCPCS: 81001; 87077; 87086; 87088; 87186

== ENCOUNTER 2020-01-24 00:44 | Outpatient (CLI) | payer MEDICARE, MEDICAID, SELFPAY ==
[2020-01-24 18:38] LABS: SARS-CoV-2 RNA PCR Negative
== END 2020-01-24 00:45 | disposition home or self-care (01) ==
LOC: ANHCOVIDDT 00:44
PROVIDERS: PCP Internal Medicine; Visit Provider Internal Medicine Critical Care Medicine
DX: Z01.812 Encounter for preprocedural laboratory examination (principal); Z20.828 Contact with and (suspected) exposure to other viral communicable diseases
CPT/HCPCS: 87635; C9803; U0003

== ENCOUNTER 2020-01-24 08:59 | Outpatient (CLI) | payer MEDICARE, MEDICAID, SELFPAY ==
[2020-01-24 09:29] LABS: Basophils Percent Auto 0.3 % (0.2-1.2); Eosinophils Absolute Auto 0.1 K/mm3 (0-0.3); Eosinophils Percent Auto 1.5 % (0-4.4); Hematocrit 43.6 % (37.0-47.0); Hemoglobin 14.5 g/dL (12.0-15.0); Immature Granulocyte Absolute 0.03 K/mm3 (0.00-0.031); Immature Granulocyte Percent A 0.4 % (0-0.5); Lymphocytes Absolute Auto 1.04 K/mm3 (0.9-3.2); Lymphocytes Percent Auto 14.6 % (18.3-44.2); Mean Corpuscular HGB Conc 33.3 g/dl (32-36); Mean Corpuscular Hemoglobin 31.3 pg (26-34); Mean Corpuscular Volume 94.2 fl (80-100); Mean Platelet Volume 10.4 fl (7.4-10.4); Monocytes Absolute Auto 0.7 K/mm3 (0.1-0.6); Monocytes Percent Auto 9.2 % (2.6-8.5); Neutrophils Absolute Auto 5.3 K/mm3 (1.3-6.7); Platelet Count Result 278 k/mm3 (150-375); Red Blood Count 4.63 M/mm3 (4.2-5.4); Red Cell Distribution Width 12.1 % (11.5-14.5); White Blood Count 7.1 K/mm3 (4.5-10.0)
[2020-01-24 09:40] LABS: Alanine Aminotransferase 22 U/L (4-35); Albumin Level 4.1 g/dL (3.5-5.1); Alkaline Phosphatase 116 U/L (38-126); Anion Gap 8 mmol/L (8-16); Aspartate Amino Transferase 28 U/L (14-36); Bilirubin,Total 0.4 mg/dL (0.2-1.3); Blood Urea Nitrogen 7 mg/dL (7-17); Carbon Dioxide 31 mmol/L (22-30); Chloride 104 mmol/L (98-107); Cholesterol 120 mg/dL (0-200); Estimated Glomerular Filt Rate > 60; Glucose 101 mg/dL (65-105); HDL Direct 39 mg/dL; Potassium 3.7 mmol/L (3.4-5.0); Sodium 143 mmol/L (137-145); Triglycerides 121 mg/dL (<150)
[2020-01-24 09:51] LABS: LDL Cholesterol Direct 54 mg/dL
[2020-01-24 09:58] LABS: Iron 79 ug/dL (37-170)
[2020-01-24 10:08] LABS: Percent Iron Saturation 21 % (20-50)
[2020-01-24 10:09] LABS: Thyroid Stimulating Hormone 0.084 uIU/mL (0.465-4.680)
[2020-01-24 11:12] LABS: Vitamin D 25 Hydroxy 62.9 ng/mL
== END 2020-01-24 09:00 | disposition home or self-care (01) ==
PROVIDERS: PCP Internal Medicine; Visit Provider Internal Medicine
DX: E78.5 Hyperlipidemia, unspecified (principal); D83.9 Common variable immunodeficiency, unspecified; E55.9 Vitamin D deficiency, unspecified; E61.1 Iron deficiency; E03.9 Hypothyroidism, unspecified; Z79.899 Other long term (current) drug therapy
CPT/HCPCS: 36415; 80053; 80061; 82306; 83540; 83550; 84443; 85025; 87635; C9803; U0003

== ENCOUNTER 2020-01-26 15:32 | Outpatient (CLI) | payer MEDICARE, MEDICAID, SELFPAY ==
--- NOTE | 2020-02-12 11:51 | WPDSLEEPSTUD ---
Sleep Study Date of Study: 02/26/20 Ordering Provider: Mihaela Solis MD Interpreting Physician: Mihaela Solis MD Sleep Study Type: Split Polysomnogram Height: 1.5 m Weight: 72.575 kg Body Mass Index: 32.3 Neck Circumference: 35.56 cm [place]: 9 Reason for Sleep Study History of KAREN on CPAP, has chronic respiratory failure on supplemental O2; needs a new study to qualify for equipment Sleep History Dayanara Malcolm is a 69 yo female with a history of obstructive sleep apnea syndrome. We follow her in the [facility] on for multiple conditions including COPD, chronic respiratory failure on oxygen and obstructive sleep apnea syndrome. Her equipment has broken and she required a new test in order to qualify for replacement equipment. Her sleep is not restorative and she wakes up frequently throughout the night. This is been going on for years. He has used CPAP in the past. She constantly snores loudly enough that others complain. She frequently awakens at night with heartburn, belching or coughing. She awakens from sleep feeling short of breath on occasion. She occasionally has trouble sleeping if she has a cold. She never sweats excessively at night, she rarely notices her heart pounding or beating irregularly at night and she occasionally falls asleep during the day. She only rarely falls asleep involuntarily, and never falls asleep while driving. She does not fall asleep during physical effort. She does not have loss of muscle tone with strong emotion. She rarely has excessive issues during the daytime due to sleepiness. She does not feel paralyzed on waking or falling asleep. She denies vivid dreamlike scenes upon awakening or falling asleep. She has never afraid to go sleep. She rarely has nightmares. She occasionally remembers her dreams. She occasionally has racing thoughts. She occasionally has feelings of sadness, depression, and frequently feels anxious. She frequently has muscular tension, frequently notices parts of her body jerking, she frequently kicks at night and frequently has Parikh aching feelings in her legs at night. She occasionally has leg pain at night. She does not have morning jaw pain and does not grind her teeth during sleep. She frequently has bothered by pain during the day, occasionally is awakened by pain at night. She constantly wakes up feeling stiff in the morning with sore achy muscles. She frequently wakes up with pain in the neck and spine. She has fatigue and headaches. She takes antacids regularly. Normal bedtime is between 10 and 11:00 p.m. taking an hour to fall asleep, typically waking 4-5 times to go to the bathroom. She stays awake for 5 minutes and returns to sleep. She wakes in the morning between 6 and 7:00 a.m.. Weekend schedule is the same. She takes naps in the afternoon. A short nap is not refreshing. She is not refreshed in the morning. HABITS: Prior history of smoking. She does use caffeine. No alcohol or recreational drugs. [facility] Past Medical History Medical History Anxiety Arthritis of wrist, right Bilateral primary osteoarthritis of knee BMI 31.0-31.9,adult Chest pain in adult Chronic bronchitis Chronic obstructive pulmonary disease Chronic respiratory failure with hypoxia Depression HORN (dyspnea on exertion) Dyslipidemia Eczema Essential hypertension Fatigue Gastro-esophageal reflux disease without esophagitis GERD (gastroesophageal reflux disease) Headache Hiatal hernia History of home oxygen therapy 2L NC at rest, 4L NC with activity HTN (hypertension) Hyperlipidemia Hypothyroid Mixed hyperlipidemia (10/28/18) Obstructive sleep apnea Palpitations with regular cardiac rhythm Pneumonia Restless leg syndrome Seasonal allergies Tachycardia Ulcer Uterine cancer Surgical History Surgical History History of carpal tunnel release Histor
[2020-02-12 12:36] VITALS: BMI 32.3
== END 2020-01-26 15:33 | disposition home or self-care (01) ==
LOC: ANHCSM 15:33
PROVIDERS: PCP Internal Medicine; Visit Provider Nurse Practitioner Family
DX: G47.10 Hypersomnia, unspecified (principal); G47.33 Obstructive sleep apnea (adult) (pediatric)
CPT/HCPCS: 95811

== ENCOUNTER 2020-03-17 13:17 | Inpatient (IN) | payer MEDICARE, MEDICAID, SELFPAY ==
[2020-03-17] VITALS (15 sets, daily range): BP systolic 115–141; BP diastolic 67–117; PULSE 101–123; RESP 18–26; TEMP 36.6; O2SAT 94–97
--- NOTE | ~2020-03-17 | CT_ITS ---
EXAMINATION: CTA chest PE protocol DATE: 03/19/2020 12:23 INDICATION: Shortness of breath. Elevated d-dimer. TECHNIQUE: Computed tomography angiography (CTA) of the chest was performed with 100 mL Omnipaque-350 intravenous contrast timed to evaluate the pulmonary arteries. Coronal maximum intensity projection 3D-reconstructions were created by the technologist. Automated exposure control and iterative reconst ruction technique were employed. Exam dose: 537.73 mGy-cm total exam DLP. COMPARISON: 03/17/2020 CT pulmonary scan 01/25/2019 CT chest FINDINGS: There is diagnostic contrast enhancement of the pulmonary arteries and no evidence of pulmo nary embolism. No thoracic aortic aneurysm or dissection. Normal heart size. Trace pericardial fluid. No pleural effusion. No hilar or mediastinal mass lesion or lymphadenopathy. Prominent emphysematous changes of the lungs. 5 mm left lower lobe pulmonary nodule (series 4 image 8 6), stable since 01/25/2019. Old healed right 10th and left ninth rib fractures. Prominent degenerative changes of the lower cervical mild degenerative changes of the thoracic spine. No suspicious osteolytic or osteoblastic lesions are noted. IMPRESSION: No evidence of pulmonary embolism Prominent emphysematous changes Stable 5 mm left lower lobe pulmonary nodule since 01/25/2019 Reviewed, dictated and finalized at Location [facility]. Reviewed, dictated and finalized at location A. NETWORK INSTALLER
--- NOTE | ~2020-03-17 | XR_ITS ---
XR chest 1V portable 03/17/2020 13:51 Indication: Shortness of breath Procedure: AP portable chest Comparison: Comparison to multiple prior studies sequentially, with oldest reviewed study dated 05/22. Findings: Heart size normal. No focal air space disease, pulmonary edema, pleural effusion or suspect ed pneumothorax. The lungs are hyperinflated which is consistent with, but not diagnostic of chronic obstructive pulmonary disease. Impression: 1: No acute cardiopulmonary disease. Reviewed, dictated and finalized at location A. S HAND SUPERVISOR Impression: 1: No acute cardiopulmonary disease.
--- NOTE | ~2020-03-17 | CT_ITS ---
EXAMINATION: CTA chest PE protocol DATE: 03/17/2020 15:40 INDICATION: Shortness breath. Elevated d-dimer. TECHNIQUE: Computed tomography (CT) pulmonary angiogram of the chest was performed with 100 mL Omnipa que-350 intravenous contrast. Additional 3D reconstructions utilizing coronal maximum intensity proje ction (MIP) were performed. Automated exposure control and iterative reconstruction technique were em ployed. The dose-length product was 452.89 mGy-cm. COMPARISON: 11/11/2019 and 01/25/2019 FINDINGS: Good but suboptimal contrast opacification of the pulmonary arteries. There is mild streak artifact f rom dense contrast in the superior vena cava and right atrium. Mild scattered respiratory motion cyndi fact. This only mildly decreases sensitivity in some of the smaller subsegmental pulmonary arteries. There is central pulmonary arterial filling defect in the apicoposterior segmental pulmonary artery o f the left upper lobe as well as a couple subsegmental pulmonary arteries in the lateral basilar segm ent of the right lower lobe consistent with pulmonary embolism. Moderate to severe emphysema. There a re a few likely benign scattered bilateral <4 mm pulmonary nodules which are unchanged since 01/26/20 19. There is mild bronchiectasis in the bilateral lower lobes with few small mucous plugs. No other a irspace opacities, pulmonary edema or pleural effusion. Heart size is normal. No leftward bowing of t he ventricular septum to suggest right heart strain. Atherosclerotic coronary artery calcifications. No pericardial effusion. No pathologically enlarged thoracic lymphadenopathy. Thoracic aorta is silva l in caliber with no dissection. Severe spondylosis at the lower cervical spine. Mild thoracic spondy losis. IMPRESSION: 1. Pulmonary emboli with low clot burden in the left upper and right lower lobes. 2. Moderate to severe emphysema with mild bronchiectatic change with a few mucous plugs in the bilate ral lower lobes. Reviewed, dictated and finalized at location A. SUPERVISOR IMPRESSION: 1. Pulmonary emboli with low clot burden in the left upper and right lower lobe s. 2. Moderate to severe emphysema with mild bronchiectatic change with a few muco us plugs in the bilateral lower lobes.
--- NOTE | ~2020-03-17 | US_ITS ---
EXAMINATION: US venous doppler [facility] DATE: 03/18/2020 09:13 INDICATION: Andrew embolism TECHNIQUE: Grayscale ultrasound images without and with compression and Doppler ultrasound images of the bilateral lower extremity veins were obtained. COMPARISON: None. FINDINGS: The visualized portions of right common femoral vein, profunda (deep) femoral vein, femoral vein, pop liteal vein, posterior tibial veins, peroneal veins, gastrocnemius vein and greater saphenous vein ou tflow are patent. The visualized portions of left common femoral vein, profunda femoral vein, femoral vein, popliteal v ein, posterior tibial veins, peroneal veins, gastrocnemius vein and greater saphenous vein outflow ar e patent. 5.9 x 3.8 x 2.3 cm anechoic Gilbert's cyst at the left popliteal fossa. IMPRESSION: 1. No deep venous thrombosis in either lower limb. 2. Large Gilbert's cyst. Reviewed, dictated and finalized at location A. CTOR OF HOME HEALTH SERVICES
--- NOTE | 2020-03-17 13:38 | ECG_ITS ---
Measurements Intervals [place] Rate: 57 P: 80 [place]: 136 QRS: 151 QRSD: 94 T: 75 QT: 344 QTc: 336 Interpretive Statements SINUS BRADYCARDIA INCOMPLETE RIGHT BUNDLE BRANCH BLOCK BORDERLINE ST-T WAVE ABNORMALITY- ANTERIOR LEADS BASELINE ARTIFACT- I, II, III, AVR, AVL, AVF, V3 BORDERLINE ECG Electronically Signed On 03-17-2020 14:38:44 PAYMENT PROCESSOR by Freedom Mendoza D.O.
[2020-03-17] MEDS: IPRATROPIUM BR 0.02% INH SOLN 0.5 MG/2.5 ML VIAL INHALATION ×2 (13:51→20:00)
--- NOTE | 2020-03-17 13:57 | ED.SOB ---
HPI - SOB/Dyspnea General Chief Complaint: Shortness of Breath/Dyspnea Stated Complaint: diff breathing Time Seen by Provider: 03/17/20 13:19 Source: patient Mode of arrival: ambulatory Limitations: no limitations History of Present Illness HPI Narrative: Patient is a 69-year-old female complaining of shortness of breath accompanied by cough, productive, whitish-yellowish sputum x3 days. Patient states that she has a history of COPD, wears 2 L at home and 4 L when she walks or exerts herself. Patient denies any chest pain, dull pain, nausea, vomiting, diarrhea, fever or chills. Related Data Home Medications Medication Instructions Recorded Confirmed albuterol sulfate 90 mcg/actuation 2 puff INHALATION Q4H PRN 02/23/19 02/28/20 aerosol inhaler acetaminophen 650 mg 650 mg PO Q12H 12/27/19 02/28/20 tablet,extended release Allergies Allergy/AdvReac Type Severity Reaction Status Date / Time Penicillins Allergy Unknown Swelling Verified 03/17/20 13:30 Sulfa (Sulfonamide Allergy Unknown Rash Verified 03/17/20 13:30 Antibiotics) Review of Systems Review of Systems: All systems reviewed & are unremarkable except as noted in HPI and below Constitutional: Constitutional: Denies body ache(s), Denies chills, Denies excessive sweating, Denies fatigue, Denies fever(s), Denies headache(s), Denies lethargy, Denies malaise, Denies weakness and Denies weight loss Eyes: Eyes: Denies blurry vision, Denies change in vision and Denies loss of vision ENT: Denies dizziness, Denies ear discharge, Denies headache(s), Denies lip swelling, Denies epistaxis, Denies nasal congestion, Denies neck pain, Denies throat swelling and Denies tongue swelling Cardiovascular: Cardiovascular: Denies chest pain, Denies chest pain at rest, Denies chest pain with activity, Denies diaphoresis, Denies rapid heart rate, Denies edema, Denies irregular heart rhythm, Denies lightheadedness and Denies palpitations Respiratory: Respiratory: Denies chest congestion and Denies hemoptysis Gastrointestinal: Gastrointestinal: Denies abdominal pain, Denies melena, Denies hematochezia, Denies diarrhea, Denies nausea, Denies vomiting and Denies hematemesis Musculoskeletal: Musculoskeletal: Denies abnormal gait, Denies deformity, Denies joint swelling, Denies limited range of motion, Denies neck pain and Denies numbness Neurologic: Denies Abnormal speech present, Denies abnormal gait, Denies confusion, Denies dizziness, Denies headache(s), Denies focal weakness, Denies loss of vision, Denies numbness, Denies Other visual disturbances, Denies Sensory deficit (Neuro) and Denies weakness Psychiatric: Psychiatric: Denies confusion, Denies depression, Denies auditory hallucinations, Denies homicidal ideation and Denies suicidal ideation Endocrine: Endocrine: Denies cold intolerance, Denies excessive sweating, Denies fatigue, Denies heat intolerance and Denies palpitations Hematologic/Lymphatic: Hematologic/Lymphatic: Denies easy bleeding and Denies easy bruising Allergic/Immunologic: Allergic/Immunologic: Denies lip swelling, Denies throat swelling and Denies tongue swelling [facility] Past Medical History Medical History (Updated 03/17/20 @ 17:30 by Meet Donaldson MD) Anxiety Arthritis of wrist, right Bilateral primary osteoarthritis of knee BMI 31.0-31.9,adult Chest pain in adult Chronic bronchitis Chronic obstructive pulmonary disease Chronic respiratory failure with hypoxia Depression OHRN (dyspnea on exertion) Dyslipidemia Eczema Essential hypertension Fatigue Gastro-esophageal reflux disease without esophagitis GERD (gastroesophageal reflux disease) Headache Hiatal hernia History of home oxygen therapy 2L NC at rest, 4L NC with activity HTN (hypertension) Hyperlipidemia Hypothyroid Mixed hyperlipidemia (10/28/18) Obstructive sleep apnea Palpitations with regular cardiac rhythm Pneumonia Restless leg syndrome Seasonal allergies Tachycardia Ulcer Uterine c
[2020-03-17 14:02] LABS: Basophils Absolute Auto 0.1 K/mm3 (0.0-0.1); Basophils Percent Auto 0.6 % (0.2-1.2); Eosinophils Absolute Auto 0.1 K/mm3 (0-0.3); Eosinophils Percent Auto 1.5 % (0-4.4); Hemoglobin 14.1 g/dL (12.0-15.0); Immature Granulocyte Absolute 0.04 K/mm3 (0.00-0.031); Immature Granulocyte Percent A 0.5 % (0-0.5); Lymphocytes Absolute Auto 1.41 K/mm3 (0.9-3.2); Lymphocytes Percent Auto 17.2 % (18.3-44.2); Mean Corpuscular HGB Conc 34.4 g/dl (32-36); Mean Corpuscular Hemoglobin 30.5 pg (26-34); Mean Corpuscular Volume 88.7 fl (80-100); Mean Platelet Volume 10.5 fl (7.4-10.4); Monocytes Absolute Auto 0.5 K/mm3 (0.1-0.6); Monocytes Percent Auto 6.5 % (2.6-8.5); Neutrophils Percent Auto 73.7 % (45.5-73.1); Platelet Count Result 296 k/mm3 (150-375); Red Blood Count 4.62 M/mm3 (4.2-5.4); Red Cell Distribution Width 12.3 % (11.5-14.5); White Blood Count 8.2 K/mm3 (4.5-10.0)
[2020-03-17 14:08] LABS: Alveolar/Arterial O2 Gradient 52.2 mmHg; Base Excess ABG 1.7 mEq/l (+/-2.0); Fractional Inspired Oxygen 28 %; HCO3 ABG 26.4 mEq/l (22.0-26.0); Oxygen Saturation ABG 97.5 % (95.0-100.0); Oxyhemoglobin 96.2 % THb (90.0-100.0); PCO2 ABG 41.8 mmHg (35.0-45.0); PO2 ABG 98.1 mmHg (80.0-100.0); Total Hemoglobin 14.7 g/dL (12.0-18.0); pH ABG 7.419 (7.350-7.450)
[2020-03-17 14:09] LABS: Device NASAL CANNULA; Site Drawn RIGHT BRACHIAL
[2020-03-17 14:12] LABS: INR 0.9; Prothrombin Time 13.1 Seconds (11.1-14.7)
[2020-03-17 14:13] LABS: Partial Thromboplastin Time 30.2 SECONDS (22.3-36.8)
[2020-03-17 14:15] LABS: Alanine Aminotransferase 28 U/L (4-35); Albumin Level 3.9 g/dL (3.5-5.1); Alkaline Phosphatase 120 U/L (38-126); Anion Gap 6 mmol/L (8-16); Aspartate Amino Transferase 31 U/L (14-36); Bilirubin,Total 0.4 mg/dL (0.2-1.3); Blood Urea Nitrogen 9 mg/dL (7-17); Carbon Dioxide 30 mmol/L (22-30); Chloride 105 mmol/L (98-107); Estimated CRCL calculation 81 ml/min; Estimated Glomerular Filt Rate > 60; Glucose 132 mg/dL (65-105); Potassium 3.5 mmol/L (3.4-5.0); Sodium 141 mmol/L (137-145)
[2020-03-17 14:16] LABS: D Dimer 0.62 ug/mL (<0.48)
[2020-03-17 14:28] LABS: NT Pro B Type Natriuretic Pept 79 PG/ML (5-100)
[2020-03-17] MEDS: ENOXAPARIN 80 MG/0.8 ML SYRINGE 70 MG SUB-Q (17:39)
--- NOTE | 2020-03-17 19:10 | PC.NURSE ---
This patient, Dayanara Malcolm, was admitted to [facility]. Patient/family oriented to hospital policies and general routines including ID bracelet, bed and alarms, visiting hours, pain management, procedures, bathroom and other care routines, personal items, smoking policy, room service/diet, and visiting hours. Information on how to activate the Rapid Response Team has been discussed. Patient/Family are encouraged to report perceived risks to care and to ask questions if they do not understand what they are told or what they should do.
[2020-03-17] MEDS: LACTATED RINGERS 1,000 ML 125 ML IV CONT (19:39)
[2020-03-17] MEDS: LEVALBUTEROL NEB 1.25 MG/3 ML 0.63 MG INHALATION (20:00)
[2020-03-18] VITALS (18 sets, daily range): BP systolic 121–128; BP diastolic 63–88; PULSE 83–111; RESP 16–24; TEMP 36.4–36.6; O2SAT 94–98
--- NOTE | 2020-03-18 03:07 | PM.IMHP ---
H&P: HPI History of Present Illness Date/Time: 03/18/20 03:07 Chief complaint: Acute PE, COPD Exacerbation Narrative: This is a 69 year old female with known COPD and chronic respiratory failure on 2 liters of oxygen at home at rest and 4 liters of oxygen with activity who presented to the hospital with a complaint of 3 days of increased shortness of breath. Associated symptoms include a poorly productive cough of whittish sputum as well as wheezing. She denies any chest pain, abdominal pain, palpitations, dysuria, hematuria, nausea, vomiting, diarrhea, rectal bleeding or LE swelling/pain/redness. She denies any recent long distance travel, hormone therapy, recent surgeries, or previous blood clotting. She also denies any history of clotting disorders in her family. She was found to have pulmonary emboli with low clot burden in the left upper and right lower lobes on CTA chest yesterday in the ER. She was anticoagulated with therapeutic Lovenox and admitted to the hospital for further care. No other complaints at this time. Review of Systems Review of Systems: All systems reviewed & are unremarkable except as noted in HPI and below PMFSH Past Medical History Medical History Anxiety Arthritis of wrist, right Bilateral primary osteoarthritis of knee BMI 31.0-31.9,adult Chest pain in adult Chronic bronchitis Chronic obstructive pulmonary disease Chronic respiratory failure with hypoxia Depression HORN (dyspnea on exertion) Dyslipidemia Eczema Essential hypertension Fatigue Gastro-esophageal reflux disease without esophagitis GERD (gastroesophageal reflux disease) Headache Hiatal hernia History of home oxygen therapy 2L NC at rest, 4L NC with activity HTN (hypertension) Hyperlipidemia Hypothyroid Mixed hyperlipidemia (10/28/18) Obstructive sleep apnea Palpitations with regular cardiac rhythm Pneumonia Restless leg syndrome Seasonal allergies Tachycardia Ulcer Uterine cancer Surgical History Surgical History History of carpal tunnel release History of hysterectomy History of tonsillectomy Family History Family History Mother Family history of chronic obstructive pulmonary disease Hypertension Chronic obstructive pulmonary disease Sibling Family history of malignant neoplasm Asthma Grandparent Acute myocardial infarction Social History Social History Smoking packs per day: 2 Smoking cigarettes per day: 40.0 Years smoked: 40 Smoking pack-years: 80.00 Smoking status: Former smoker Tobacco type: cigarettes Second hand tobacco smoke exposure: Yes Smoking end date: 04/12/07 Alcohol intake: current Substance use: never 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 Gender identity (if verbalized by the patient): Female Spiritual care concerns: No Agree to blood products: No Meds Home Medications and Allergies Home Medications Medication Instructions Recorded Confirmed Type albuterol sulfate 90 mcg/actuation 2 puff INHALATION Q4H PRN 02/23/19 03/17/20 History aerosol inhaler venlafaxine 150 mg 150 mg PO DAILY #90 cap 04/06/19 03/17/20 Rx capsule,extended release 24 hr ferrous sulfate 325 mg (65 mg 325 mg PO DAILY #90 tablet 08/21/19 03/17/20 Rx iron) tablet ergocalciferol (vitamin D2) 1,250 50,000 unit PO WEEKLY #12 cap 08/29/19 03/17/20 Rx mcg (50,000 unit) capsule potassium chloride 10 mEq 20 meq PO DAILY #180 cap 08/29/19 03/17/20 Rx capsule,extended release alendronate 70 mg tablet 70 mg PO WEEKLY #12 tablet 10/30/19 03/17/20 Rx buspirone 10 mg tablet 10 mg PO BID #180 tablet 10/30/19 03/17/20 Rx ropinirole 1 mg tablet 1 mg PO HS #90 tablet 10/30/19 03/17/20 Rx roflumilast 500 mcg tablet 500 mcg PO DAILY #30 tablet 11/02/19
[2020-03-18 04:48] LABS: Basophils Percent Auto 0.2 % (0.2-1.2); Hematocrit 37.5 % (37.0-47.0); Hemoglobin 12.9 g/dL (12.0-15.0); Immature Granulocyte Absolute 0.02 K/mm3 (0.00-0.031); Immature Granulocyte Percent A 0.4 % (0-0.5); Lymphocytes Absolute Auto 0.64 K/mm3 (0.9-3.2); Lymphocytes Percent Auto 11.4 % (18.3-44.2); Mean Corpuscular HGB Conc 34.4 g/dl (32-36); Mean Corpuscular Hemoglobin 30.6 pg (26-34); Mean Corpuscular Volume 88.9 fl (80-100); Mean Platelet Volume 10.3 fl (7.4-10.4); Monocytes Absolute Auto 0.3 K/mm3 (0.1-0.6); Monocytes Percent Auto 4.5 % (2.6-8.5); Neutrophils Absolute Auto 4.7 K/mm3 (1.3-6.7); Neutrophils Percent Auto 83.5 % (45.5-73.1); Platelet Count Result 269 k/mm3 (150-375); Red Blood Count 4.22 M/mm3 (4.2-5.4); Red Cell Distribution Width 12.4 % (11.5-14.5); White Blood Count 5.6 K/mm3 (4.5-10.0)
[2020-03-18 05:03] LABS: Anion Gap 5 mmol/L (8-16); Blood Urea Nitrogen 11 mg/dL (7-17); Carbon Dioxide 30 mmol/L (22-30); Chloride 105 mmol/L (98-107); Estimated CRCL calculation 80 ml/min; Estimated Glomerular Filt Rate > 60; Glucose 195 mg/dL (65-105); Potassium 4.1 mmol/L (3.4-5.0); Sodium 140 mmol/L (137-145)
[2020-03-18] MEDS: LEVOTHYROXINE SODIUM 100 MCG TABLET PO (06:17)
--- NOTE | 2020-03-18 06:22 | PCRCNOTE ---
Window of time for administration has passed. See next scheduled administration.
[2020-03-18] MEDS: IPRATROPIUM BR 0.02% INH SOLN 0.5 MG/2.5 ML VIAL INHALATION ×3 (06:33→19:54)
[2020-03-18 07:36] LABS: Troponin I < 0.012 ng/mL (0.000-0.034)
[2020-03-18] MEDS: ROFLUMILAST 500 MCG TABLET PO (08:05)
[2020-03-18] MEDS: predniSONE 40 MG, predniSONE 10 MG 50 MG PO (08:05)
[2020-03-18] MEDS: FERROUS SULFATE 324 MG TABLET PO (08:05)
[2020-03-18] MEDS: LORATADINE 10 MG TABLET PO (08:05)
[2020-03-18] MEDS: lisinopriL 10 MG TABLET PO (08:05)
[2020-03-18] MEDS: ATORVASTATIN 40 MG TABLET PO (08:06)
[2020-03-18] MEDS: PANTOPRAZOLE 40 MG TABLET PO ×2 (08:06→17:44)
[2020-03-18] MEDS: MONTELUKAST SODIUM 10 MG TABLET PO (08:06)
[2020-03-18] MEDS: busPIRone HCL 10 MG TABLET PO ×2 (08:06→17:44)
[2020-03-18] MEDS: VENLAFAXINE HCL XR 75 MG CAP.ER.24H 150 MG PO (08:06)
--- NOTE | 2020-03-18 09:16 | PM.IMPN ---
Progress Note: A&P Assessment and Plan (1) Pulmonary embolism: Qualifiers: Acute cor pulmonale presence: without acute cor pulmonale Chronicity: acute Pulmonary embolism type: unspecified Qualified Code(s): I26.99 - Other pulmonary embolism without acute cor pulmonale Code(s): I26.99 - Other pulmonary embolism without acute cor pulmonale Status: Acute Assessment and Plan: The patient has been placed in observation status. She is currently on her home oxygen requirements of 2L/min via NC and in no acute distress. Continue therapeutic Lovenox and transition to oral anticoagulant. Check LE Doppler U/S b/l to r/o DVT. She will likely need to be anticoagulated for at least 6 months for her unprovoked pulmonary emboli. (2) Acute exacerbation of chronic obstructive pulmonary disease: Code(s): J44.1 - Chronic obstructive pulmonary disease with (acute) exacerbation Status: Acute Assessment and Plan: Continue oxygen supplementation. Continuous pulse oximetry. Continue steroid therapy. Continue Xopenex scheduled and prn. RT assess and treat. Acappella therapy. (3) Chronic respiratory failure with hypoxia: Code(s): J96.11 - Chronic respiratory failure with hypoxia Status: Acute Assessment and Plan: The patient is on her current home oxygen requirements. (4) Hypothyroid: Qualifiers: Hypothyroidism type: acquired Qualified Code(s): E03.9 - Hypothyroidism, unspecified Code(s): E03.9 - Hypothyroidism, unspecified Status: Chronic Assessment and Plan: Continue levothyroxine PO. (5) Restless leg syndrome: Code(s): G25.81 - Restless legs syndrome Status: Chronic Assessment and Plan: Continue ropinerole PO. (6) Gastro-esophageal reflux disease without esophagitis: Code(s): K21.9 - Gastro-esophageal reflux disease without esophagitis Status: Chronic Assessment and Plan: Continue PPI therapy. (7) Essential hypertension: Code(s): I10 - Essential (primary) hypertension Status: Chronic Assessment and Plan: stable. Monitor blood pressure. Continue Lisinopril and Diltiazem. (8) Dyslipidemia: Code(s): E78.5 - Hyperlipidemia, unspecified Status: Chronic Assessment and Plan: Continue Atorvastatin PO. (9) Depression: Qualifiers: Depression Type: unspecified Qualified Code(s): F32.9 - Major depressive disorder, single episode, unspecified Code(s): F32.9 - Major depressive disorder, single episode, unspecified Status: Chronic Assessment and Plan: Continue venlafaxine and buspirone. Additional Plan Will continue current plan of care and treatment. Subjective Date/time seen: 03/18/20 09:17 Interval history: Patient was seen during the morning rounds today, mild sob, no chest pain, mood stable. Review of Systems Review of Systems: All systems reviewed & are unremarkable except as noted in HPI and below Exam Const: General: no acute distress, alert and awake Nutritional Appearance: well nourished Orientation/consciousness: patient oriented x3 HENMT: Head: normal to inspection General nose exam: Normal external nose present Face and sinus: normal facial exam Mouth: Yes Normal oral and palatal mucosa present and Yes oropharynx normal Eyes: Pupils: Equal, round and reactive pupils present EOM: EOMs intact bilaterally Neck: Neck: supple and no JVD Thyroid: thyroid normal Lymphatic: lymphadenopathy not noted Resp: Auscultation: wheezes and diminished lung sounds Cardio: Rate: tachycardic Rhythm: regular rhythm Heart sounds: no murmurs GI: Inspection: normal to inspection Auscultation: normal bowel sounds Skin: General skin exam: normal color and no rashes or lesions noted Neuro: General: patient oriented x3 Cranial nerves: Yes CN's II-XII intact bilaterally and Yes Equal, round and reactive pupils present Speech:
[2020-03-18] MEDS: ENOXAPARIN 80 MG/0.8 ML SYRINGE 70 MG SUB-Q (09:26)
--- NOTE | 2020-03-18 14:52 | PM.CNPUL ---
Assessment and Plan Assessment and plan (1) Pulmonary embolism: Qualifiers: Acute cor pulmonale presence: without acute cor pulmonale Chronicity: acute Pulmonary embolism type: unspecified Qualified Code(s): I26.99 - Other pulmonary embolism without acute cor pulmonale Code(s): I26.99 - Other pulmonary embolism without acute cor pulmonale Status: Acute Assessment and Plan: This is a new diagnosis with small bilateral PE seen on CTA. She is on 3 liters/minute her same oxygen requirement that she uses at home. Her lower extremity Dopplers are negative. She does not have any right heart strain. She is hemodynamically stable. She is on Lovenox 70 mg subcutaneously twice a day and can convert to oral therapy in anticipation of going home. She is on Gamunex C for her CVID, and this intravenous immunoglobulin G has less than a 1% chance of causing PE. STOP Lovenox. Start Eliquis 10 mg b.i.d. discussed with Dr. Johnson and trimming caser will try to see if this is covered by her insurance. (2) Chronic respiratory failure with hypoxia: Code(s): J96.11 - Chronic respiratory failure with hypoxia Status: Acute Assessment and Plan: continue O2; has been on for years (3) Obstructive sleep apnea: Code(s): G47.33 - Obstructive sleep apnea (adult) (pediatric) Status: Chronic Assessment and Plan: continue treatment new sleep study results show need for 11 cm water with sleep (4) Chronic obstructive pulmonary disease: Qualifiers: COPD type: unspecified COPD Qualified Code(s): J44.9 - Chronic obstructive pulmonary disease, unspecified Code(s): J44.9 - Chronic obstructive pulmonary disease, unspecified Status: Acute Assessment and Plan: continue Rx with her regular medicaitosn History of Present Illness History of Present Illness Consult date: 03/18/20 Requesting physician: Kirill Johnson MD Reason for consult: pulmonary embolism Chief complaint: Acute PE, COPD Exacerbation Narrative: NEW: Dayanara Malcolm is a 69 yo female who we follow in our clinic with chronic respiratory failure on O2 3 L/min around the clock, COPD, KAREN; 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 she was in her usual state of chronically debilitated health until the last 3 days prior to admission when she developed increasing shortness of breath, lower O2 saturation 89-93% and difficulty walking short distances. Normally her saturation is 94% - 96% on 3 L/min. She is sedentary most of the time. 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 She thought she was having a COPD exacerbation and that she would get steroids and so forth but when she had a chest CTA with small bilateral pulmonary emboli. The patient has never had pulmonary emboli before. She does not have clots in her legs. She has not had any other symptoms that would suggest thromboembolic disease. She does not have any other symptoms that would suggest COVID. She is COVID negative. She has not had fever, chills or myalgias, loss of taste of smell, change in her baseline productive morning cough. She had split night sleep study on January 26, 2020 to qualify for new CPAP equipment. This showed mild obstructive sleep apnea syndrome with 11 cm of water pressure and no supplemental oxygen required overnight. She says that she has had a problem getting this new equipment set up at her home. Review of Systems Review of Systems: All systems reviewed & are unremarkable except as noted in HPI and below ROS unobtainable: Yes other (she has a
[2020-03-18] MEDS: APIXABAN 5 MG TABLET 10 MG PO (21:30)
[2020-03-18] MEDS: rOPINIRole HCL 1 MG TABLET PO (21:30)
[2020-03-19] VITALS (13 sets, daily range): BP systolic 109–117; BP diastolic 62–66; PULSE 79–104; RESP 18–20; TEMP 36.6–36.8; O2SAT 93–98
[2020-03-19] MEDS: LEVOTHYROXINE SODIUM 100 MCG TABLET PO (06:03)
[2020-03-19] MEDS: IPRATROPIUM BR 0.02% INH SOLN 0.5 MG/2.5 ML VIAL INHALATION ×2 (08:41→14:19)
[2020-03-19] MEDS: FLUTICASONE/SALMETEROL 230-21 MCG INHALER 1 PUFF 2 PUFF INHALATION (09:06)
[2020-03-19] MEDS: FERROUS SULFATE 324 MG TABLET PO (09:16)
[2020-03-19] MEDS: predniSONE 40 MG, predniSONE 10 MG 50 MG PO (09:16)
[2020-03-19] MEDS: APIXABAN 5 MG TABLET 10 MG PO (09:17)
[2020-03-19] MEDS: busPIRone HCL 10 MG TABLET PO (09:18)
[2020-03-19] MEDS: LORATADINE 10 MG TABLET PO (09:20)
[2020-03-19] MEDS: PANTOPRAZOLE 40 MG TABLET PO (09:20)
[2020-03-19] MEDS: ROFLUMILAST 500 MCG TABLET PO (09:21)
--- NOTE | 2020-03-19 10:25 | PC.NURSE ---
DR. GUY HERE TO SEE PT AT BEDSIDE. ORDERS RECEIVED FOR REPEAT CT OF CHEST PE PROTOCOL. WILL BE PERFORMED ONCE PT. HAS BEEN NPO X 4 HOURS. LAST MEAL COMPLETED AT 0730.
[2020-03-19] MEDS: LACTATED RINGERS 1,000 ML 250 ML IV CONT (11:00)
[2020-03-19] MEDS: ERGOCALCIFEROL 50,000 UNIT CAPSULE 50000 UNITS PO (11:49)
--- NOTE | 2020-03-19 12:00 | PC.NURSE ---
DOWN VIA WC TO CT FOR CT OF CHEST FOR PE PROTOCOL. LR IVF'S HAVE BEEN STARTED ORDERED.
--- NOTE | 2020-03-19 12:20 | PM.PNPUL ---
Progress Note: A&P Assessment and Plan (1) Acute exacerbation of chronic obstructive pulmonary disease: Code(s): J44.1 - Chronic obstructive pulmonary disease with (acute) exacerbation Status: Acute Assessment and Plan: She admitted to taking her Advair only once a day as opposed to bid so I educated her about the importance of not missing doses. - Can discharge home to resume Advair diskus 250/50 mcg 1 puff bid + Spiriva 18 mcg 1 puff daily - Prednisone 40-50 mg PO OD for 5-7 days total then discontinue without taper - continue Nebulized Albuterol 2.5 mg QID PRN only (2) Pulmonary embolism: Qualifiers: Acute cor pulmonale presence: without acute cor pulmonale Chronicity: acute Pulmonary embolism type: unspecified Qualified Code(s): I26.99 - Other pulmonary embolism without acute cor pulmonale Code(s): I26.99 - Other pulmonary embolism without acute cor pulmonale Status: Acute Assessment and Plan: There is possibility that the PEs seen may be artificats as I could not visualize them myself and her clinical presentation is more consistent with COPD exacerbation. - I will repeat her CT chest PE protocol today and if no PE is report she does not need anticoagulation - If PE is reported then she will need life long anticoagulation with a NOAC of your choice Subjective Date/time seen: 03/19/20 12:20 Interval history: 69 y/o female with COPD, CVID is admitted with COPD exacaerbation. She had increased cough productive of whitish sputum, increased wheezing and chest pressure. She had no infectious or COVID likely symptoms. She had no chest pain or palpitations. She had a CT chest PE protocol that reported a RLL and TAMIKO subsegmental PEs but when I viewed the CT myself there is a possibility that those may be artifact. She has no significant risk P.E. or DVT and US of LE were negative. No recent travel, no history of malignancy or recent surgeries or periods of prolong immobilization. She is feeling much better today after treatement for COPD exacerbation Review of Systems Review of Systems: All systems reviewed & are unremarkable except as noted in HPI and below Exam Const: General: cooperative, healthy appearing, comfortable, no acute distress, well developed, alert, awake and Physically active Nutritional Appearance: well nourished and overweight Orientation/consciousness: oriented to person, oriented to place, oriented to time and patient oriented x3 Limitations: no limitations HENMT: Head: normal to inspection, normocephalic and atraumatic Eyes: General: appearance normal, both eyes and all related structures Pupils: Equal, round and reactive pupils present EOM: EOMs intact bilaterally Neck: Neck: trachea midline, supple and no JVD Lymphatic: lymphadenopathy not noted Resp: Effort & Inspection: normal respiratory effort Auscultation: wheezes and diminished lung sounds Cardio: Rate: regular rate and tachycardic Rhythm: regular rhythm Heart sounds: S1 normal heart sound present, S2 normal heart sound present and no murmurs GI: Inspection: normal to inspection Auscultation: normal bowel sounds Skin: General skin exam: normal color and no rashes or lesions noted Neuro: General: oriented to person, oriented to place, oriented to time and patient oriented x3 Cognition (Neuro): normal cognition Speech: normal speech Motor exam (neuro): 5/5 motor strength present throughout Sensory Exam: normal sensation Extrem: General: normal to inspection and no clubbing, cyanosis or edema Psych: Appearance: grossly normal and well kempt Mental Status: mental status grossly normal Affect: normal affect Objective Data Vital Signs Vital Signs: Vital Signs - 24 hr 03/18/20 14:00 03/18/20 14:53 03/18/20 14:59 Temperature Pulse Rate 101 H 104 H 102 H Respiratory Rate 20 24 H 23 H Blood Pressure 128/70 Pulse Oximetry 98 03/18/20 16:00 03/18/20 19:55 03/18/20 19:56 Temperat
--- NOTE | 2020-03-19 13:16 | PM.DS ---
DS: Admitting Diagnosis Admitting Diagnosis Admitting Diagnosis: Acute PE, COPD Exacerbation DS: Discharge Diagnosis Discharge Diagnosis (1) Pulmonary embolism: Qualifiers: Acute cor pulmonale presence: without acute cor pulmonale Chronicity: acute Pulmonary embolism type: unspecified Qualified Code(s): I26.99 - Other pulmonary embolism without acute cor pulmonale Code(s): I26.99 - Other pulmonary embolism without acute cor pulmonale Status: Acute Assessment and Plan: The patient has been placed in observation status. She is currently on her home oxygen requirements of 2L/min via NC and in no acute distress. Pt was seen by pulmology CTA on 03/19/2020 shows No PE. Pt is stable to discharge off anticoagulation. (2) Acute exacerbation of chronic obstructive pulmonary disease: Code(s): J44.1 - Chronic obstructive pulmonary disease with (acute) exacerbation Status: Acute Assessment and Plan: Continue oxygen supplementation pt is on 2 liters of oxygen at home. Continue steroid therapy. Continue Xopenex scheduled and prn. Acappella therapy. Follow up with pulmology group. (3) Chronic respiratory failure with hypoxia: Code(s): J96.11 - Chronic respiratory failure with hypoxia Status: Acute Assessment and Plan: The patient is on her current home oxygen requirements. (4) Hypothyroid: Qualifiers: Hypothyroidism type: acquired Qualified Code(s): E03.9 - Hypothyroidism, unspecified Code(s): E03.9 - Hypothyroidism, unspecified Status: Chronic Assessment and Plan: Continue levothyroxine PO. (5) Restless leg syndrome: Code(s): G25.81 - Restless legs syndrome Status: Chronic Assessment and Plan: Continue ropinerole PO. (6) Gastro-esophageal reflux disease without esophagitis: Code(s): K21.9 - Gastro-esophageal reflux disease without esophagitis Status: Chronic Assessment and Plan: Continue PPI therapy. (7) Essential hypertension: Code(s): I10 - Essential (primary) hypertension Status: Chronic Assessment and Plan: Continue Lisinopril and Diltiazem. (8) Dyslipidemia: Code(s): E78.5 - Hyperlipidemia, unspecified Status: Chronic Assessment and Plan: Continue Atorvastatin PO. (9) Depression: Qualifiers: Depression Type: unspecified Qualified Code(s): F32.9 - Major depressive disorder, single episode, unspecified Code(s): F32.9 - Major depressive disorder, single episode, unspecified Status: Chronic Assessment and Plan: Continue venlafaxine and buspirone. DS: Summary Time Spent with Patient Time attestation: Total time spent providing and/or coordinating discharge services:40 minutes on day of dischrage Exam Const: General: no acute distress, alert and awake Nutritional Appearance: well nourished Orientation/consciousness: patient oriented x3 Resp: Effort & Inspection: normal respiratory effort Auscultation: clear to auscultation bilaterally and lung sounds not diminished Cardio: Rate: tachycardic Rhythm: regular rhythm Heart sounds: no murmurs GI: Inspection: normal to inspection Auscultation: normal bowel sounds Skin: General skin exam: normal color and no rashes or lesions noted Neuro: General: patient oriented x3 Cranial nerves: Yes CN's II-XII intact bilaterally and Yes Equal, round and reactive pupils present Speech: normal speech Motor exam (neuro): 5/5 motor strength present throughout Sensory Exam: normal sensation Extrem: General: normal to inspection and no edema Psych: Mental Status: mental status grossly normal Affect: normal affect DS: Data Data Completed and Pending Labs on day of discharge: Preliminary micro results at discharge 03/18/20 21:37 Sputum Culture - Preliminary Sputum 03/17/20 13:50 Blood Culture - Preliminary Blood 03/17/20 14:45 Blood Culture - Prelimin
--- NOTE | 2020-03-19 13:30 | PC.NURSE ---
RESULTS OF CT CHEST FOR PE PROTOCOL CALLED TO DR. GUY. NEGATIVE FOR PE. OK TO DISCHARGE HOME FROM HIS STANDPOINT. DISCONTINUE ELIQUIS. WILL ALSO NOTIFY DR. STEARNS.
--- NOTE | 2020-03-19 15:00 | PC.NURSE ---
MAY DISCHARGE HOME ONCE FULL 1 LITER BAG OF LR IS COMPLETED. PT. IS AWARE OF ORDER AND IS AWARE OF RESULTS OF CT CHEST.
[2020-03-20 21:35] LABS: Pneumococcal Antigen Urine Not Detected (Not Detected)
== END 2020-03-19 16:15 | disposition home or self-care (01) | DRG 176 ==
LOC: ANHED 17:30 → ANHCPC 19:17
PROVIDERS: Family Medicine; Internal Medicine; Admitting Provider Family Medicine; Emergency Provider Emergency Medicine; PCP Internal Medicine; Visit Provider Family Medicine
DX: I26.99 Other pulmonary embolism without acute cor pulmonale (principal); J44.1 Chronic obstructive pulmonary disease with (acute) exacerbation; J96.11 Chronic respiratory failure with hypoxia; Z99.81 Dependence on supplemental oxygen; E03.9 Hypothyroidism, unspecified; G47.33 Obstructive sleep apnea (adult) (pediatric); G25.81 Restless legs syndrome; I10 Essential (primary) hypertension; E78.5 Hyperlipidemia, unspecified; F32.9 Major depressive disorder, single episode, unspecified; K21.9 Gastro-esophageal reflux disease without esophagitis; K44.9 Diaphragmatic hernia without obstruction or gangrene; Z79.899 Other long term (current) drug therapy; Z87.891 Personal history of nicotine dependence; Z88.0 Allergy status to penicillin; Z88.2 Allergy status to sulfonamides
CPT/HCPCS: 36415; 36600; 71045; 71275; 80048; 80053; 82805; 83605; 83880; 84484; 85025; 85380; 85610; 85730; 87040; 87070; 87205; 87899; 93005; 93970; 94640; 94667; 96365; 96367; 96375; 99291; A9270; J0456; J0696; J1100; J1459; J1650; J7120; J7512; Q9967

== ENCOUNTER 2020-05-06 12:17 | Outpatient (CLI) | payer MEDICARE, MEDICAID, SELFPAY ==
[2020-05-06 13:41] LABS: Thyroid Stimulating Hormone 0.264 uIU/mL (0.465-4.680)
== END 2020-05-06 12:18 | disposition home or self-care (01) ==
PROVIDERS: PCP Internal Medicine; Visit Provider Nurse Practitioner
DX: E03.9 Hypothyroidism, unspecified (principal)
CPT/HCPCS: 36415; 84443

== ENCOUNTER 2020-08-26 15:51 | Emergency (ER) | payer MEDICARE, MEDICAID, SELFPAY ==
[2020-08-26] VITALS (13 sets, daily range): BP systolic 94–151; BP diastolic 65–127; PULSE 82–113; RESP 15–32; TEMP 36.3; O2SAT 92–100
--- NOTE | ~2020-08-26 | CT_ITS ---
EXAMINATION: CTA chest PE protocol DATE: 08/26/2020 20:34 INDICATION: Shortness of breath TECHNIQUE: Computed tomography angiography (CTA) of the chest was performed with 100 mL Omnipaque-350 intravenous contrast timed to evaluate the pulmonary arteries. Coronal maximum intensity projection 3D-reconstructions were created by the technologist. The dose-length product (DLP) was 427.31 mGy-cm. Automated exposure control and iterative reconstruction technique were employed. COMPARISON: 03/19/2020 FINDINGS: The pulmonary arteries are moderately well-opacified. No central pulmonary embolism is iden tified. Pulmonary nodules measuring up to 5 mm are stable and consistent with old granulomatous disea se. There is moderate emphysema. No pleural effusion or pneumothorax is identified. No pathologically enlarged thoracic lymph nodes are identified. The heart size is normal. Healed bilateral rib fractur es are noted. A partially imaged cyst of the right kidney measures up to 2.3 cm. IMPRESSION: 1. No pulmonary embolism identified, sensitivity limited by moderate opacification of the pulmonary a rteries. Reviewed, dictated and finalized at location A. IMPRESSION: 1. No pulmonary embolism identified, sensitivity limited by moderate opacificat ion of the pulmonary arteries.
--- NOTE | ~2020-08-26 | XR_ITS ---
EXAMINATION: XR chest 2V EXAM DATE: 08/26/2020 17:01 INDICATION: Shortness of breath, COPD. TECHNIQUE: Frontal and lateral projections of the chest obtained and reviewed. Comparison is made to prior examination from 03/17/2020. FINDINGS: There is aortic arteriosclerosis. Mild hyperinflation. The lungs are clear. There are no pleural effusions. The cardiomediastinal silhouette is within normal limits. There is no pneumothor ax suspected. The bones and soft tissues are unremarkable. IMPRESSION: No acute cardiopulmonary findings. Reviewed, dictated and finalized at location A.
--- NOTE | 2020-08-26 15:53 | ECG_ITS ---
Measurements Intervals Standish Rate: 92 P: 69 NM: 168 QRS: 77 QRSD: 82 T: 74 QT: 359 QTc: 445 Interpretive Statements SINUS RHYTHM INCOMPLETE RIGHT BUNDLE BRANCH BLOCK BASELINE WANDER- II, III, AVF, V3-V6 BORDERLINE ECG Electronically Signed On 08-26-2020 18:54:42 CDT by Freedom Mendoza D.O.
[2020-08-26 16:10] LABS: Basophils Percent Auto 0.6 % (0.2-1.2); Eosinophils Absolute Auto 0.1 K/mm3 (0-0.3); Hematocrit 42.1 % (37.0-47.0); Immature Granulocyte Absolute 0.02 K/mm3 (0.00-0.031); Immature Granulocyte Percent A 0.3 % (0-0.5); Lymphocytes Absolute Auto 1.38 K/mm3 (0.9-3.2); Mean Corpuscular HGB Conc 33.3 g/dl (32-36); Mean Corpuscular Hemoglobin 31.4 pg (26-34); Mean Corpuscular Volume 94.4 fl (80-100); Mean Platelet Volume 10.3 fl (7.4-10.4); Monocytes Absolute Auto 0.6 K/mm3 (0.1-0.6); Monocytes Percent Auto 8.7 % (2.6-8.5); Neutrophils Absolute Auto 4.4 K/mm3 (1.3-6.7); Neutrophils Percent Auto 67.4 % (45.5-73.1); Platelet Count Result 263 k/mm3 (150-375); Red Blood Count 4.46 M/mm3 (4.2-5.4); Red Cell Distribution Width 13.5 % (11.5-14.5); White Blood Count 6.6 K/mm3 (4.5-10.0)
[2020-08-26 16:28] LABS: Anion Gap 7 mmol/L (8-16); Blood Urea Nitrogen 10 mg/dL (7-17); Calcium 9.3 mg/dL (8.4-10.2); Carbon Dioxide 28 mmol/L (22-30); Chloride 106 mmol/L (98-107); Estimated Glomerular Filt Rate > 60; Glucose 101 mg/dL (65-105); Potassium 3.6 mmol/L (3.4-5.0); Sodium 141 mmol/L (137-145)
--- NOTE | 2020-08-26 17:21 | PC.NURSE ---
pt c/o increased sob with minimal exertion. states cant even walk across the room without being winded.
--- NOTE | 2020-08-26 17:58 | ED.SOB ---
HPI - SOB/Dyspnea General Chief Complaint: Shortness of Breath/Dyspnea Stated Complaint: sob, copd Time Seen by Provider: 08/26/20 17:52 Source: patient and RN notes reviewed Mode of arrival: ambulatory Limitations: no limitations History of Present Illness HPI Narrative: This is a 69 year old female with history of COPD, home O2 2L NC who presents for evaluation of worsening shortness of breath over the past several days. She states she is not able to walk around her house now without getting winded. She reports a chronic cough but it is not worse. She denies chest pain, fever, chills. She does reports wheezing. She uses her nebulizer once a day and she has been using her albuterol rescue inhaler more. She states it gives her some improvement for a short period of time. MD elicited complaint: shortness of breath Related Data Home Medications Medication Instructions Recorded Confirmed acetaminophen 650 mg 650 mg PO Q12H 12/27/19 08/12/20 tablet,extended release Gamunex-C 100 ml IV WEEKLY 03/17/20 08/12/20 Allergies Allergy/AdvReac Type Severity Reaction Status Date / Time Penicillins Allergy Unknown Swelling Verified 05/09/20 10:51 Sulfa (Sulfonamide Allergy Unknown Rash Verified 05/09/20 10:51 Antibiotics) Review of Systems Review of Systems: All systems reviewed & are unremarkable except as noted in HPI and below Constitutional: Constitutional: Denies chills and Denies fever(s) Cardiovascular: Cardiovascular: Denies chest pain Respiratory: Respiratory: Reports cough (chronic) and Reports dyspnea Gastrointestinal: Gastrointestinal: Denies abdominal pain and Denies nausea PMFSH Past Medical History Medical History Anxiety Arthritis of wrist, right Bilateral primary osteoarthritis of knee BMI 31.0-31.9,adult Chest pain in adult Chronic bronchitis Chronic obstructive pulmonary disease Chronic respiratory failure with hypoxia Depression HORN (dyspnea on exertion) Dyslipidemia Eczema Essential hypertension Fatigue Gastro-esophageal reflux disease without esophagitis GERD (gastroesophageal reflux disease) Headache Hiatal hernia History of home oxygen therapy 2L NC at rest, 4L NC with activity HTN (hypertension) Hyperlipidemia Hypothyroid Hypothyroidism, unspecified Iron deficiency Mixed hyperlipidemia (10/28/18) Obstructive sleep apnea Obstructive sleep apnea (adult) (pediatric) Palpitations with regular cardiac rhythm Pneumonia Postmenopausal Pre-diabetes Pulmonary nodule Restless leg syndrome Seasonal allergies Tachycardia Ulcer Uterine cancer Vitamin D deficiency, unspecified Surgical History Surgical History History of carpal tunnel release History of hysterectomy History of tonsillectomy Family History Family History Mother Family history of chronic obstructive pulmonary disease Hypertension Chronic obstructive pulmonary disease Sibling Family history of malignant neoplasm Asthma Grandparent Acute myocardial infarction Social History Social History Smoking packs per day: 2 Smoking cigarettes per day: 40.0 Years smoked: 40 Smoking pack-years: 80.00 Smoking status: Former smoker Tobacco type: cigarettes Second hand tobacco smoke exposure: Yes Smoking end date: 04/12/07 Alcohol intake: current Substance use: never 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
[2020-08-26] MEDS: ALBUTEROL SULFATE NEB 2.5 MG/0.5 ML INH 10 MG INHALATION (18:16)
[2020-08-26] MEDS: IPRATROPIUM BR 0.02% INH SOLN 0.5 MG/2.5 ML VIAL 1 MG INHALATION (18:16)
[2020-08-26] MEDS: predniSONE 20 MG TABLET 60 MG PO (18:17)
--- NOTE | 2020-08-26 18:31 | PC.NURSE ---
called lab, Jeremias, asked to add on PT INT PTT D Dimer and Trop Baseline 1830
[2020-08-26 18:37] LABS: Base Excess ABG 2.2 mEq/l (+/-2.0); Carboxyhemoglobin 0.6 % THb (0-2.0); Fractional Inspired Oxygen 28 %; HCO3 ABG 27.3 mEq/l (22.0-26.0); Methemoglobin ABG 0.2 %THb (0-1.5); Oxygen Content ABG 19.6 %vol (16.0-22.0); Oxygen Saturation ABG 99.6 % (95.0-100.0); PCO2 ABG 44.5 mmHg (35.0-45.0); PO2 ABG 270.6 mmHg (80.0-100.0); Reduced Hemoglobin 1.2 %THb (0-5.0); Total Hemoglobin 13.8 g/dL (12.0-18.0); pH ABG 7.406 (7.350-7.450)
[2020-08-26 18:39] LABS: Device OTHER DEVICE; Site Drawn RIGHT BRACHIAL
[2020-08-26 18:52] LABS: INR 0.9; Prothrombin Time 12.5 Seconds (11.1-14.7)
[2020-08-26 18:55] LABS: D Dimer 0.57 ug/mL (<0.48)
[2020-08-26 20:16] LABS: Troponin I < 0.012 ng/mL (0.000-0.034)
--- NOTE | 2020-08-26 20:25 | PC.NURSE ---
cleaner furniture attempted to hand patient a mask and patient is adamantly refusing to wear a mask. pt is currently being wheeled down the [address] holding a sheet over her nose/mouth. CT also attempted to get pt to wear a mask, and pt is also refusing to her as well.
== END 2020-08-26 21:42 | disposition home or self-care (01) ==
PROVIDERS: Emergency Medicine; Emergency Provider General Practice; PCP Internal Medicine
DX: J44.1 Chronic obstructive pulmonary disease with (acute) exacerbation (principal); Z87.891 Personal history of nicotine dependence; Z99.81 Dependence on supplemental oxygen; E78.5 Hyperlipidemia, unspecified; I10 Essential (primary) hypertension; K21.9 Gastro-esophageal reflux disease without esophagitis; E03.9 Hypothyroidism, unspecified; G25.81 Restless legs syndrome; R73.03 Prediabetes; F41.9 Anxiety disorder, unspecified; F32.9 Major depressive disorder, single episode, unspecified
CPT/HCPCS: 36415; 36600; 71046; 71275; 80048; 82375; 82805; 83050; 84484; 85025; 85380; 85610; 85730; 93005; 94640; 99284; J7512; Q9967

== ENCOUNTER → 2020-09-27 04:59 | Outpatient (CLI) | payer MEDICARE, MEDICAID, SELFPAY ==
[2020-09-27 18:47] LABS: SARS-CoV-2 RNA PCR Negative
== END ==
PROVIDERS: PCP Internal Medicine; Visit Provider Internal Medicine Critical Care Medicine
DX: R68.89 Other general symptoms and signs (principal); Z20.822 Contact with and (suspected) exposure to COVID-19
CPT/HCPCS: C9803; U0003; U0005

== ENCOUNTER → 2020-09-30 09:19 | Outpatient (CLI) | payer MEDICARE, MEDICAID, SELFPAY ==
--- NOTE | 2020-10-11 11:24 | WPDSLEEPSTUD ---
Sleep Study Date of Study: 09/30/20 Ordering Provider: Harpal Albrecht APRN Interpreting Physician: Mihaela Solis MD Sleep Study Type: Polysomnogram Height: 1.52 m Weight: 72.575 kg Body Mass Index: 31.2 Neck Circumference (inches): 16.5 [place]: 7 Reason for Sleep Study known KAREN, did not use CPAP after Feb 2020 study and equipment was removed; she returns to re-qualify for CPAP. * 02/12/2020 - split night sleep study, mild KAREN, AHI 8.2, 12 cm water pressure recommended * 07/04/2015 - CPAP titration -13 cm and 3 L/min * 01/29/2015- HST- KAREN AHI 5, desaturation to 49% Sleep History Dayanara Malcolm is a 69 yo female with a history of obstructive sleep apnea syndrome. We follow her in the [facility] on for multiple conditions including COPD, chronic respiratory failure on oxygen and obstructive sleep apnea syndrome. In February 2020, she was retested when her equipment broke and needed replacement. She did not use the CPAP and it was removed from her home by the [employer]. She was referred for a repeat split night study. Her sleep is not restorative and she wakes up frequently throughout the night. This is been going on for years. He has used CPAP in the past. She constantly snores loudly enough that others complain. She frequently awakens at night with heartburn, belching or coughing. She awakens from sleep feeling short of breath on occasion. She occasionally has trouble sleeping if she has a cold. She never sweats excessively at night, she rarely notices her heart pounding or beating irregularly at night and she occasionally falls asleep during the day. She only rarely falls asleep involuntarily, and never falls asleep while driving. She does not fall asleep during physical effort. She does not have loss of muscle tone with strong emotion. She rarely has excessive issues during the daytime due to sleepiness. She does not feel paralyzed on waking or falling asleep. She denies vivid dreamlike scenes upon awakening or falling asleep. She has never afraid to go sleep. She rarely has nightmares. She occasionally remembers her dreams. She occasionally has racing thoughts. She occasionally has feelings of sadness, depression, and frequently feels anxious. She frequently has muscular tension, frequently notices parts of her body jerking, she frequently kicks at night and frequently has Parikh aching feelings in her legs at night. She occasionally has leg pain at night. She does not have morning jaw pain and does not grind her teeth during sleep. She frequently has bothered by pain during the day, occasionally is awakened by pain at night. She constantly wakes up feeling stiff in the morning with sore achy muscles. She frequently wakes up with pain in the neck and spine. She has fatigue and headaches. She takes antacids regularly. Normal bedtime is between 10 and 11:00 p.m. taking an hour to fall asleep, typically waking 4-5 times to go to the bathroom. She stays awake for 5 minutes and returns to sleep. She wakes in the morning between 6 and 7:00 a.m.. Weekend schedule is the same. She takes naps in the afternoon. A short nap is not refreshing. She is not refreshed in the morning. HABITS: Prior history of smoking. She does use caffeine. No alcohol or recreational drugs. [facility] Past Medical History Medical History Anxiety Arthritis of wrist, right Bilateral primary osteoarthritis of knee BMI 31.0-31.9,adult Chest pain in adult Chronic bronchitis Chronic obstructive pulmonary disease Chronic respiratory failure with hypoxia Depression HORN (dyspnea on exertion) Dyslipidemia Eczema Essential hypertension Fatigue Gastro-esophageal reflux disease without esophagitis GERD (gastroesophageal reflux disease) Headache Hiatal hernia History of home oxygen therapy 2L NC at rest, 4L NC with activity HTN (hypertension) Hyperlipidemia Hypothyroid Hypothyroidism, u
[2020-10-11 12:30] VITALS: BMI 31.2
== END ==
PROVIDERS: PCP Internal Medicine; Visit Provider Nurse Practitioner Family
DX: G47.33 Obstructive sleep apnea (adult) (pediatric) (principal)
CPT/HCPCS: 95810

== ENCOUNTER 2020-10-20 12:14 | Emergency (ER) | payer MEDICARE, MEDICAID, SELFPAY ==
--- NOTE | ~2020-10-20 | CT_ITS ---
EXAMINATION: CTA chest PE protocol DATE: 10/20/2020 14:56 CDT INDICATION: Increased d-dimer. Shortness of breath. TECHNIQUE: Computed tomographic angiography (CTA) of the chest was performed with 100 mL Omnipaque-35 0 intravenous contrast. The dose-length product was 448.36 mGy-cm. Maximum intensity projection 3D-re constructions of the aorta and other arteries were constructed by the technologist on a separate work station. Automated exposure control and iterative reconstruction technique were employed. COMPARISON: CT dated 08/26/2020. FINDINGS: Right hilar lymphadenopathy. There is emphysema. There is a 2.1 x 1.6 cm left lower lobe no dule. Study is technically adequate without evidence for pulmonary embolism. There is bibasilar depen dent atelectasis. There are nonenlarged axillary lymph nodes. Right hilar lymph node measures 2.8 x 2 .2 cm, image 106. No acute bone or joint abnormality. IMPRESSION: 1. 2.1 cm left lower lobe nodule, suspicious for bronchogenic carcinoma with possible right hilar met astases. Consider percutaneous biopsy using CT guidance or pet/CT examination. 2: Emphysema. Reviewed, dictated and finalized at location A. IMPRESSION: 1. 2.1 cm left lower lobe nodule, suspicious for bronchogenic carcinoma with po ssible right hilar metastases. Consider percutaneous biopsy using CT guidance o r pet/CT examination. 2: Emphysema.
--- NOTE | ~2020-10-20 | XR_ITS ---
EXAMINATION: XR chest 2V DATE: 10/20/2020 12:40 INDICATION: Shortness of breath. TECHNIQUE: Frontal and lateral views of the chest were obtained. COMPARISON: Chest CT 08/26/2020 FINDINGS: There are lucencies in the lungs, consistent with emphysema. There are airspace opacities a t the lung bases, left worse than right. No pleural effusion or pneumothorax. The heart size is silva l. IMPRESSION: 1. Airspace opacities at the lung bases, left worse than right, consistent with atelectasis versus pn eumonia. 2. Severe emphysema. Reviewed, dictated and finalized at location A. IMPRESSION: 1. Airspace opacities at the lung bases, left worse than right, consistent with atelectasis versus pneumonia. 2. Severe emphysema.
[2020-10-20 12:17] VITALS: BP 115/77; PULSE 104; RESP 18; TEMP 37.1; O2SAT 98
--- NOTE | 2020-10-20 12:22 | ECG_ITS ---
Measurements Intervals Martin Rate: 100 P: 63 MT: 146 QRS: 84 QRSD: 92 T: 72 QT: 347 QTc: 449 Interpretive Statements SINUS TACHYCARDIA INCOMPLETE RIGHT BUNDLE BRANCH BLOCK BASELINE ARTIFACT- I, II, AVR, AVL ABNORMAL ECG Electronically Signed On 10-20-2020 12:48:40 CDT by Freedom Mendoza D.O.
[2020-10-20 12:37] LABS: Basophils Percent Auto 0.4 % (0.2-1.2); Eosinophils Absolute Auto 0.1 K/mm3 (0-0.3); Eosinophils Percent Auto 0.7 % (0-4.4); Hematocrit 41.4 % (37.0-47.0); Hemoglobin 13.8 g/dL (12.0-15.0); Immature Granulocyte Absolute 0.03 K/mm3 (0.00-0.031); Immature Granulocyte Percent A 0.3 % (0-0.5); Lymphocytes Percent Auto 11.8 % (18.3-44.2); Mean Corpuscular HGB Conc 33.3 g/dl (32-36); Mean Corpuscular Hemoglobin 31.5 pg (26-34); Mean Corpuscular Volume 94.5 fl (80-100); Mean Platelet Volume 10.3 fl (7.4-10.4); Monocytes Percent Auto 9.7 % (2.6-8.5); Neutrophils Absolute Auto 7.9 K/mm3 (1.3-6.7); Neutrophils Percent Auto 77.1 % (45.5-73.1); Platelet Count Result 246 k/mm3 (150-375); Red Blood Count 4.38 M/mm3 (4.2-5.4); Red Cell Distribution Width 12.3 % (11.5-14.5); White Blood Count 10.2 K/mm3 (4.5-10.0)
[2020-10-20 12:40] VITALS: PULSE 99
[2020-10-20 12:43] VITALS: BP 123/73; PULSE 102; RESP 27; O2SAT 94
[2020-10-20 12:48] LABS: Anion Gap 8 mmol/L (8-16); Blood Urea Nitrogen 9 mg/dL (7-17); Calcium 8.7 mg/dL (8.4-10.2); Carbon Dioxide 27 mmol/L (22-30); Chloride 101 mmol/L (98-107); Estimated CRCL calculation 53 ml/min; Estimated Glomerular Filt Rate > 60; Glucose 111 mg/dL (65-105); Potassium 3.9 mmol/L (3.4-5.0); Sodium 136 mmol/L (137-145)
--- NOTE | 2020-10-20 13:41 | ED.SOB ---
HPI - SOB/Dyspnea General Chief Complaint: Shortness of Breath/Dyspnea Stated Complaint: shortness of breath Time Seen by Provider: 10/20/20 13:12 Source: patient and RN notes reviewed Mode of arrival: ambulatory Limitations: no limitations History of Present Illness HPI Narrative: This is a 69 year old female with history of COPD , chronic oxygen dependence who presents for evaluation of worsening shortness of breath. She developed difficulty breathing 3 days ago . She states today she is having trouble making it to restroom in her home with out sob. She also reports productive cough with green sputum. She also states she had 100.3 F fever last night. She denies sore throat, runny nose. She dose reports her chronic migraine headache. She denies sick contacts. She has been using her nebulizer and inhalers with some relief. Denies leg swelling , calf pain or history of DVT.. Related Data Home Medications Medication Instructions Recorded Confirmed acetaminophen 650 mg 650 mg PO Q12H 12/27/19 08/28/20 tablet,extended release Gamunex-C 100 ml IV WEEKLY 03/17/20 08/28/20 Allergies Allergy/AdvReac Type Severity Reaction Status Date / Time Penicillins Allergy Unknown Swelling Verified 10/20/20 12:40 Sulfa (Sulfonamide Allergy Unknown Rash Verified 10/20/20 12:40 Antibiotics) Review of Systems Review of Systems: All systems reviewed & are unremarkable except as noted in HPI and below Constitutional: Constitutional: Reports fever(s) Cardiovascular: Cardiovascular: Denies chest pain and Denies radiating jaw, neck or arm pain Respiratory: Respiratory: Reports cough, Reports dyspnea and Reports wheezing Gastrointestinal: Gastrointestinal: Denies abdominal pain and Denies nausea PMFSH Past Medical History Medical History Anxiety Arthritis of wrist, right Bilateral primary osteoarthritis of knee BMI 31.0-31.9,adult Chest pain in adult Chronic bronchitis Chronic obstructive pulmonary disease Chronic respiratory failure with hypoxia Depression HORN (dyspnea on exertion) Dyslipidemia Eczema Essential hypertension Fatigue Gastro-esophageal reflux disease without esophagitis GERD (gastroesophageal reflux disease) Headache Hiatal hernia History of home oxygen therapy 2L NC at rest, 4L NC with activity HTN (hypertension) Hyperlipidemia Hypothyroid Hypothyroidism, unspecified Iron deficiency Mixed hyperlipidemia (10/28/18) Obstructive sleep apnea Obstructive sleep apnea (adult) (pediatric) Palpitations with regular cardiac rhythm Pneumonia Postmenopausal Pre-diabetes Pulmonary nodule Restless leg syndrome Seasonal allergies Tachycardia Ulcer Uterine cancer Vitamin D deficiency, unspecified Surgical History Surgical History History of carpal tunnel release History of hysterectomy History of tonsillectomy Family History Family History Mother Family history of chronic obstructive pulmonary disease Hypertension Chronic obstructive pulmonary disease Sibling Family history of malignant neoplasm Asthma Grandparent Acute myocardial infarction Social History Social History Smoking packs per day: 2 Smoking cigarettes per day: 40.0 Years smoked: 40 Smoking pack-years: 80.00 Smoking status: Former smoker Tobacco type: cigarettes Second hand tobacco smoke exposure: Yes Smoking end date: 04/12/07 Alcohol intake: current Substance use: never 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
[2020-10-20] MEDS: IPRATROPIUM BR 0.02% INH SOLN 0.5 MG/2.5 ML VIAL INHALATION (13:43)
[2020-10-20] MEDS: ALBUTEROL SULFATE NEB 2.5 MG/0.5 ML INH 5 MG INHALATION (13:43)
[2020-10-20 13:49] LABS: Alveolar/Arterial O2 Gradient 79.8 mmHg; Base Excess ABG 4.6 mEq/l (+/-2.0); Carboxyhemoglobin 1.1 % THb (0-2.0); Fractional Inspired Oxygen 28 %; HCO3 ABG 29.4 mEq/l (22.0-26.0); Methemoglobin ABG 0.3 %THb (0-1.5); Oxygen Content ABG 18.3 %vol (16.0-22.0); Oxygen Saturation ABG 94.1 % (95.0-100.0); Oxyhemoglobin 92.5 % THb (90.0-100.0); PCO2 ABG 44.2 mmHg (35.0-45.0); PO2 ABG 67.7 mmHg (80.0-100.0); PO2 FiO2 Ratio Arterial Blood 2.42 %; Reduced Hemoglobin 6.1 %THb (0-5.0); Total Hemoglobin 14.1 g/dL (12.0-18.0); pH ABG 7.441 (7.350-7.450)
[2020-10-20 13:50] VITALS: PULSE 97; RESP 20
[2020-10-20 13:50] LABS: Device NASAL CANNULA; Site Drawn RIGHT BRACHIAL
[2020-10-20 14:15] LABS: Lactic Acid Reflex 0.9 mmol/L (0.7-2.1)
[2020-10-20 14:19] LABS: Alanine Aminotransferase 18 U/L (4-35); Alkaline Phosphatase 117 U/L (38-126); Aspartate Amino Transferase 26 U/L (14-36); Bilirubin,Total 0.8 mg/dL (0.2-1.3); CRP 8.2 mg/dL (<1.0)
[2020-10-20] MEDS: methylPREDNISolone SOD SUCC 125 MG VIAL IV PUSH (14:19)
[2020-10-20 14:20] LABS: D Dimer 0.77 ug/mL (<0.48)
[2020-10-20 14:34] VITALS: BP 105/64; PULSE 114; RESP 30; O2SAT 92
[2020-10-20 16:13] VITALS: BP 122/94; PULSE 102; RESP 15; O2SAT 94
== END 2020-10-20 16:15 | disposition home or self-care (01) ==
PROVIDERS: Emergency Medicine; Emergency Provider General Practice; PCP Internal Medicine
DX: J44.1 Chronic obstructive pulmonary disease with (acute) exacerbation (principal); J96.11 Chronic respiratory failure with hypoxia; I10 Essential (primary) hypertension; K21.9 Gastro-esophageal reflux disease without esophagitis; E03.9 Hypothyroidism, unspecified; E78.2 Mixed hyperlipidemia; G47.33 Obstructive sleep apnea (adult) (pediatric); R73.03 Prediabetes; G25.81 Restless legs syndrome; E55.9 Vitamin D deficiency, unspecified; M19.031 Primary osteoarthritis, right wrist; Z99.81 Dependence on supplemental oxygen; F41.9 Anxiety disorder, unspecified; F32.9 Major depressive disorder, single episode, unspecified; Z85.42 Personal history of malignant neoplasm of other parts of uterus; Z87.891 Personal history of nicotine dependence; R00.0 Tachycardia, unspecified; I45.10 Unspecified right bundle-branch block; R91.8 Other nonspecific abnormal finding of lung field; R91.1 Solitary pulmonary nodule
CPT/HCPCS: 36415; 36600; 71046; 71275; 80048; 80076; 82375; 82805; 83050; 83605; 85025; 85380; 86140; 87040; 93005; 94640; 96374; 99284; J2930; Q9967

== ENCOUNTER 2020-10-30 13:49 | Outpatient (CLI) | payer MEDICARE, MEDICAID, SELFPAY ==
--- NOTE | ~2020-10-30 | XR_ITS ---
XR facial bones min 3V DATE: 10/30/2020 14:29 INDICATION: Fall on nose TECHNIQUE: Lateral, Hernandez, osman and submental vertical views COMPARISON: None FINDINGS: The nasal bones appear intact. No facial fracture is evident. The paranasal sinuses and mastoid air cells appear normally developed and aerated. IMPRESSION: Negative examination Reviewed, dictated and finalized at location A. IMPRESSION: Negative examination
[2020-10-30 15:30] LABS: Vitamin D 25 Hydroxy 67.7 ng/mL
== END 2020-10-30 13:50 | disposition home or self-care (01) ==
LOC: ANHLAB 13:53
PROVIDERS: Nurse Practitioner; PCP Internal Medicine; Visit Provider Internal Medicine
DX: E03.9 Hypothyroidism, unspecified (principal); E55.9 Vitamin D deficiency, unspecified; J34.89 Other specified disorders of nose and nasal sinuses
CPT/HCPCS: 36415; 70150; 82306; 84443

== ENCOUNTER 2020-11-22 13:42 | Emergency (ER) | payer MEDICARE, MEDICAID, SELFPAY ==
--- NOTE | ~2020-11-22 | XR_ITS ---
EXAMINATION: XR thoracic spine 3V DATE: 11/22/2020 14:55 INDICATION: Right arm pain and numbness. TECHNIQUE: 3 views of thoracic spine were obtained. COMPARISON: Chest CT 10/20/2020 FINDINGS: There is 6 degrees dextrocurvature of thoracic spine. Vertebral body heights are normal. Th ere is mildly decreased disc height at multiple levels in mid thoracic spine. There are endplate oste ophytes at most levels. IMPRESSION: 1. Mild thoracic spondylosis. Reviewed, dictated and finalized at location A.
--- NOTE | ~2020-11-22 | XR_ITS ---
EXAMINATION: XR_CERV2-3V_CR DATE: 11/22/2020 14:55 INDICATION: Right arm pain and numbness. TECHNIQUE: 3 views of cervical spine were obtained. COMPARISON: Chest CT 10/20/2020 FINDINGS: There is 6 degrees levocurvature of cervical spine. The lower cervical spine is obscured on the lateral view. There is 2 mm retrolisthesis of C4 on C5. There is moderately decreased disc heigh t at C3-C4 and severely decreased disc height from C4-C5 through C6-C7. There is multilevel severe fa cet joint osteoarthritis bilaterally. There is moderate to severe uncovertebral joint osteoarthritis from C3-C4 through C6-C7, left worse than right. There is mild central canal stenosis at C4-C5, C5-C6 , and C6-C7. No prevertebral soft tissue swelling. IMPRESSION: 1. Severe cervical spondylosis. Reviewed, dictated and finalized at location A.
[2020-11-22 13:50] VITALS: BP 91/71; PULSE 95; RESP 20; TEMP 36.3; O2SAT 98
--- NOTE | 2020-11-22 13:54 | ED.EXTPRO ---
HPI - Extremity Problem General Chief complaint: Extremity Problem,Nontraumatic Stated complaint: right arm/shoulder pain Time Seen by Provider: 11/22/20 13:55 Source: patient and RN notes reviewed Mode of arrival: ambulatory Limitations: no limitations History of Present Illness HPI Narrative: 69-year-old female presents to the [facility] with complaints of right upper back and arm pain for the last several days. states that it has become worse over the last 24 hours. Denies any injury. Pain is worse with movement. Denies chest pain, abdominal pain, shortness of breath. Patient states when she moves her arm she has intermittent pain along with numbness and tingling in her hand. No midline tenderness. No loss or retention of bowel or bladder. Related Data Home Medications Medication Instructions Recorded Confirmed acetaminophen 650 mg 650 mg PO Q12H 12/27/19 11/22/20 tablet,extended release Gamunex-C 100 ml IV WEEKLY 03/17/20 11/22/20 Spiriva with HandiHaler 18 mcg INHALATION DAILY 11/22/20 11/22/20 albuterol sulfate 2 puff INHALATION Q4-6H PRN 11/22/20 11/22/20 atorvastatin 40 mg PO DAILY 11/22/20 11/22/20 buspirone 15 mg PO BID 11/22/20 11/22/20 diltiazem HCl 120 mg PO DAILY 11/22/20 11/22/20 epinephrine 0.3 mg IM .PRN PRN 11/22/20 11/22/20 ergocalciferol (vitamin D2) 1,250 mcg PO WEEKLY 11/22/20 11/22/20 montelukast 10 mg PO DAILY 11/22/20 11/22/20 omeprazole 40 mg PO DAILY 11/22/20 11/22/20 potassium chloride 20 meq PO DAILY 11/22/20 11/22/20 roflumilast [Daliresp] 500 mcg PO DAILY 11/22/20 11/22/20 sumatriptan succinate 50 mg PO .PRN PRN 11/22/20 11/22/20 Allergies Allergy/AdvReac Type Severity Reaction Status Date / Time Penicillins Allergy Unknown Swelling Verified 11/22/20 14:00 Sulfa (Sulfonamide Allergy Unknown Rash Verified 11/22/20 14:00 Antibiotics) Review of Systems Review of Systems: All systems reviewed & are unremarkable except as noted in HPI and below Constitutional: Constitutional: Reports no additional constitutional complaints, Denies chills and Denies fever(s) Eyes: Eyes: Reports no additional eye complaints ENT: Reports system reviewed and no additional complaints, except as documented Cardiovascular: Cardiovascular: Reports no additional cardiovascular complaints and Denies chest pain Respiratory: Respiratory: Reports no additional respiratory complaints, Denies cough and Denies dyspnea Comments: No new shortness of breath, wears 2 L at rest, 4 L with exertion Gastrointestinal: Gastrointestinal: Reports no additional gastrointestinal complaints Musculoskeletal: Musculoskeletal: Reports as per HPI, Reports back pain (Right scapular area), Denies arthralgias and Denies joint swelling Integumentary/Breasts: Skin/Breast: Reports system reviewed and no additional complaints, except as docu Neurologic: Reports system reviewed and no additional complaints, except as documented Psychiatric: Psychiatric: Reports no additional psychiatric complaints Allergic/Immunologic: Allergic/Immunologic: Reports no additional allergic/immunologic complaints PMFSH Past Medical History Medical History Anxiety Arthritis of wrist, right Bilateral primary osteoarthritis of knee BMI 31.0-31.9,adult Chest pain in adult Chronic bronchitis Chronic obstructive pulmonary disease Chronic respiratory failure with hypoxia Depression HORN (dyspnea on exertion) Dyslipidemia Eczema Essential hypertension Fatigue Gastro-esophageal reflux disease without esophagitis GERD (gastroesophageal reflux disease) Headache Hiatal hernia History of home oxygen therapy 2L NC at rest, 4L NC with activity HTN (hypertension) Hyperlipidemia Hypothyroid Hypothyroidism, unspecified Iron deficiency Mixed hyperlipidemia (10/28/18) Obstructive sleep apnea Obstructive sleep apnea (adult) (pediatric) Palpitations with regular cardiac rhythm Pneumonia Postmenopausal Pre-marcio
== END 2020-11-22 15:51 | disposition home or self-care (01) ==
PROVIDERS: Emergency Provider Nurse Practitioner; PCP Internal Medicine
DX: M54.12 Radiculopathy, cervical region (principal); M47.812 Spondylosis without myelopathy or radiculopathy, cervical region; M47.814 Spondylosis without myelopathy or radiculopathy, thoracic region; Z87.891 Personal history of nicotine dependence; M17.10 Unilateral primary osteoarthritis, unspecified knee; J44.9 Chronic obstructive pulmonary disease, unspecified; F32.9 Major depressive disorder, single episode, unspecified; I10 Essential (primary) hypertension; E78.5 Hyperlipidemia, unspecified; E03.9 Hypothyroidism, unspecified; R73.03 Prediabetes; G25.81 Restless legs syndrome; E55.9 Vitamin D deficiency, unspecified; G47.33 Obstructive sleep apnea (adult) (pediatric)
CPT/HCPCS: 72040; 72072; 99213; A4565; G0463

== ENCOUNTER 2020-12-06 09:38 | Outpatient (CLI) | payer MEDICARE, MEDICAID, SELFPAY ==
--- NOTE | 2021-01-02 12:19 | WPDSLEEPSTUD ---
Sleep Study Date of Study: 12/06/20 Ordering Provider: Harpal Albrecht APRN Interpreting Physician: Mihaela Solis MD Sleep Study Type: Split Polysomnogram Height: 1.52 m Weight: 71.668 kg Body Mass Index: 30.8 Neck Circumference (inches): 16 [place]: 7 Reason for Sleep Study known KAREN, did not use CPAP after Feb 2020 study and equipment was removed; she returns to re-qualify for CPAP. * 09/30/2020 - basic sleep study; nondiagnostic; AHI 2.8 with little sleep * 02/12/2020 - split night sleep study, mild KAREN, AHI 8.2, 12 cm water pressure recommended * 07/04/2015 - CPAP titration -13 cm and 3 L/min * 01/29/2015- HST- KAREN AHI 5, desaturation to 49% Sleep History Daaynara Malcolm is a 69 yo female with a history of obstructive sleep apnea syndrome, and also has COPD and chronic respiratory failure on oxygen. In February 2020, she was retested when her equipment broke and needed replacement. She did not use the CPAP and it was removed from her home by the [employer]. A basic study 09/30/2020 was not diagnostic. She was referred for a repeat split night study. Her sleep is not restorative and she wakes up frequently throughout the night. This is been going on for years. He has used CPAP in the past. She constantly snores loudly enough that others complain. She frequently awakens at night with heartburn, belching or coughing. She awakens from sleep feeling short of breath on occasion. She occasionally has trouble sleeping if she has a cold. She never sweats excessively at night, she rarely notices her heart pounding or beating irregularly at night and she occasionally falls asleep during the day. She only rarely falls asleep involuntarily, and never falls asleep while driving. She does not fall asleep during physical effort. She does not have loss of muscle tone with strong emotion. She rarely has excessive issues during the daytime due to sleepiness. She does not feel paralyzed on waking or falling asleep. She denies vivid dreamlike scenes upon awakening or falling asleep. She has never afraid to go sleep. She rarely has nightmares. She occasionally remembers her dreams. She occasionally has racing thoughts. She occasionally has feelings of sadness, depression, and frequently feels anxious. She frequently has muscular tension, frequently notices parts of her body jerking, she frequently kicks at night and frequently has Parikh aching feelings in her legs at night. She occasionally has leg pain at night. She does not have morning jaw pain and does not grind her teeth during sleep. She frequently has bothered by pain during the day, occasionally is awakened by pain at night. She constantly wakes up feeling stiff in the morning with sore achy muscles. She frequently wakes up with pain in the neck and spine. She has fatigue and headaches. She takes antacids regularly. Normal bedtime is between 10 and 11:00 p.m. taking an hour to fall asleep, typically waking 4-5 times to go to the bathroom. She stays awake for 5 minutes and returns to sleep. She wakes in the morning between 6 and 7:00 a.m.. Weekend schedule is the same. She takes naps in the afternoon. A short nap is not refreshing. She is not refreshed in the morning. HABITS: Prior history of smoking. She does use caffeine. No alcohol or recreational drugs. [facility] Past Medical History Medical History Anxiety Arthritis of wrist, right Bilateral primary osteoarthritis of knee BMI 31.0-31.9,adult Chest pain in adult Chronic bronchitis Chronic obstructive pulmonary disease Chronic respiratory failure with hypoxia Depression HORN (dyspnea on exertion) Dyslipidemia Eczema Essential hypertension Fatigue Gastro-esophageal reflux disease without esophagitis GERD (gastroesophageal reflux disease) Headache Hiatal hernia History of home oxygen therapy 2L NC at rest, 4L NC with activity HTN (hypertension) Hyperlipidemia Hypothy
[2021-01-02 13:32] VITALS: BMI 30.8
== END 2020-12-07 08:37 | disposition home or self-care (01) ==
LOC: ANHCSM 09:41
PROVIDERS: PCP Internal Medicine; Visit Provider Nurse Practitioner Family
DX: G47.10 Hypersomnia, unspecified (principal); G47.33 Obstructive sleep apnea (adult) (pediatric); J96.11 Chronic respiratory failure with hypoxia
CPT/HCPCS: 95811

== ENCOUNTER 2020-12-12 15:02 | Outpatient (CLI) | payer MEDICARE, MEDICAID, SELFPAY ==
--- NOTE | ~2020-12-12 | CT_ITS ---
EXAMINATION: CTA brain DATE: 12/12/2020 15:47 INDICATION: Chronic migraine headache without aura, not intractable, without status migrainosus. TECHNIQUE: Computed tomographic angiography (CTA) of the head was performed without and with 100 mL O mnipaque-350 intravenous contrast. Automated exposure control and iterative reconstruction technique were employed. The dose-length product was 943.45 mGy-cm. Maximum intensity projection 3D reconstruc tions were created. Volume-rendered 3D reconstructions of the intracranial arteries were created by lorena seymour technologist on a separate workstation. COMPARISON: Head CT 07/27/2019, 01/10/16, 04/02/11 FINDINGS: There is no acute ischemic infarct or intracranial hemorrhage. There is a 1.6 x 0.9 cm pine al cyst, stable from 04/02/11. The ventricles are normal in size. There is mild mucosal thickening in the paranasal sinuses. The orbits are normal. The mastoid air cells are normal. The left vertebral a rtery is dominant. There is no significant stenosis of basilar artery or the posterior cerebral arter ies. The posterior communicating arteries are normal. There is no significant stenosis of the intracr anial internal carotid arteries or anterior or middle cerebral arteries. Anterior communicating arter y is normal. IMPRESSION: 1. No aneurysm or significant intracranial arterial stenosis. Reviewed, dictated and finalized at location A.
[2020-12-12 15:42] LABS: Estimated Glomerular Filt Rate > 60
== END 2020-12-12 15:03 | disposition home or self-care (01) ==
PROVIDERS: PCP Internal Medicine; Referring Provider Nurse Practitioner; Visit Provider Nurse Practitioner
DX: G43.709 Chronic migraine without aura, not intractable, without status migrainosus (principal); M50.10 Cervical disc disorder with radiculopathy, unspecified cervical region
CPT/HCPCS: 70496; Q9967

== ENCOUNTER 2020-12-12 15:04 | Outpatient (CLI) | payer MEDICARE, MEDICAID, SELFPAY ==
--- NOTE | ~2020-12-12 | XR_ITS ---
EXAMINATION: XR shoulder RT min 2V DATE: 12/12/2020 15:35 INDICATION: Right shoulder pain. TECHNIQUE: 5 views of right shoulder were obtained. COMPARISON: Right shoulder radiographs 02/05/2015 FINDINGS: Bone alignment is normal. No fracture. There is mild osteoarthritis of glenohumeral joint a nd acromioclavicular joint. IMPRESSION: 1. Mild polyarticular osteoarthritis. Reviewed, dictated and finalized at location A.
== END 2020-12-12 15:05 | disposition home or self-care (01) ==
PROVIDERS: PCP Internal Medicine
DX: M19.011 Primary osteoarthritis, right shoulder (principal)
CPT/HCPCS: 70496; 73030; Q9967

== ENCOUNTER 2020-12-24 15:44 | Outpatient (CLI) | payer MEDICARE, MEDICAID, SELFPAY ==
--- NOTE | ~2020-12-24 | MR_ITS ---
EXAMINATION: MR cervical spine wo con EXAM DATE: 12/24/2020 16:38 INDICATION: M50.10 - Cervical disc disorder with radiculopathy, unspe... Numbness and tingling, chron ic neck pain. TECHNIQUE: Multi-sequential, multiplanar MR images of the cervical spine were obtained without contra st. Axial T2, axial T2 MERGE sequence. Sagittal T1, T2, T2 fat saturation images also obtained. Th ere is no prior study for comparison. FINDINGS: There is congenital central canal stenosis at the C5-6 and 6-7 levels, with the cord being flattened but no cord edema, no acute cord compression. Moderate to severe disc disease from C3 thro ugh C7. There is 2 mm anterolisthesis C7 on T1. There is moderate reversal of cervical lordosis proba elijah degenerative. The spinal cord signal intensity and intrinsic morphology is normal. Cervicomedulla ry junction is normal in appearance. Paraspinal soft tissue is unremarkable. Level by level evaluation: C2-C3: Disc does not extend beyond the endplate margin. Uncovertebral joint arthropathy: Mild left. Facet joint arthropathy: Moderate left, mild right. Neural foraminal stenosis: Mild left. Central canal stenosis: No stenosis. C3-C4: There is a mild diffuse disc bulge. Uncovertebral joint arthropathy: Moderate right, mild to moderate left. Facet joint arthropathy: Moderate to severe right, mild to moderate left. Neural foraminal stenosis: Moderate right, mild to moderate left. Central canal stenosis: Mild. C4-C5: There is a mild diffuse disc bulge. Uncovertebral joint arthropathy: Moderate to severe right, severe left. Facet joint arthropathy: Moderate bilateral. Neural foraminal stenosis: Severe left, moderate right. Central canal stenosis: Mild. C5-C6: There is a mild diffuse disc bulge. Uncovertebral joint arthropathy: Moderate bilateral. Facet joint arthropathy: Mild to moderate bilateral. Neural foraminal stenosis: Severe left, moderate right. Central canal stenosis: Mild to moderate superimposed on congenital. . Central canal measures 5 mm in mid sagittal AP diameter . C6-C7: There is a mild diffuse disc bulge. Uncovertebral joint arthropathy: Moderate to severe right, moderate left. Facet joint arthropathy: Mild bilateral. Neural foraminal stenosis: Moderate to severe bilateral, right greater than left. Central canal stenosis: Mild . Central canal measures 7 mm in mid sagittal AP diameter . C7-T1: There is a minimal diffuse disc bulge. Uncovertebral joint arthropathy: Moderate bilateral. Facet joint arthropathy: Moderate bilateral. Neural foraminal stenosis: Moderate right, mild to moderate left. Central canal stenosis: No stenosis. IMPRESSION: 1. Spondylosis and congenital cervical central canal stenosis causing central canal stenosis most na rrowed at C5-6 with chronic cord flattening, compression. No edema. 2. Advanced cervical spondylosis as detailed above. Reviewed, dictated and finalized at location B. IMPRESSION: 1. Spondylosis and congenital cervical central canal stenosis causing central canal stenosis most narrowed at C5-6 with chronic cord flattening, compression. No edema. 2. Advanced cervical spondylosis as detailed above.
== END 2020-12-24 15:45 | disposition home or self-care (01) ==
PROVIDERS: PCP Internal Medicine; Visit Provider Nurse Practitioner
DX: M47.23 Other spondylosis with radiculopathy, cervicothoracic region (principal); M48.03 Spinal stenosis, cervicothoracic region
CPT/HCPCS: 72141

== ENCOUNTER 2020-12-24 15:53 | Outpatient (CLI) | payer MEDICARE, MEDICAID, SELFPAY ==
--- NOTE | ~2020-12-24 | CT_ITS ---
EXAMINATION: CT diagnostic chest wo con DATE: 12/24/2020 16:50 INDICATION: Solitary pulmonary nodule TECHNIQUE: Computed tomography (CT) of the chest was performed without intravenous contrast. The dose -length product (DLP) was 119.54 mGy-cm. Automated exposure control and iterative reconstruction tech nique were employed. COMPARISON: 10/20/2020, 08/26/2020 FINDINGS: There is severe emphysema. There has been interval resolution of the previously described l eft lower lobe nodule, consistent with resolved pneumonia. The lungs are free of acute opacities. The re is no pleural effusion or pneumothorax. No pathologically enlarged thoracic lymph nodes are identi fied. The heart size is normal. There is mild thoracic spondylosis. There is severe lower cervical sp ondylosis. IMPRESSION: 1. Resolved left lower lobe nodule, consistent with resolving pneumonia. 2. Severe emphysema. Reviewed, dictated and finalized at location A.
== END 2020-12-24 15:54 | disposition home or self-care (01) ==
LOC: ANHIMG 15:53
PROVIDERS: PCP Internal Medicine; Visit Provider Nurse Practitioner Family
DX: R91.1 Solitary pulmonary nodule (principal); J43.9 Emphysema, unspecified; R91.8 Other nonspecific abnormal finding of lung field
CPT/HCPCS: 71250; 72141

== ENCOUNTER 2021-01-22 17:41 | Emergency (ER) | payer MEDICARE, MEDICAID, SELFPAY ==
--- NOTE | ~2021-01-22 | XR_ITS ---
EXAMINATION: XR chest 2V DATE: 01/22/2021 18:18 INDICATION: Shortness of breath and wheezing. TECHNIQUE: Frontal and lateral views of the chest were obtained. COMPARISON: Chest 2 views 10/20/2020, chest CT 12/24/2020 FINDINGS: There is mild atelectasis in the lower lung zones. There are lucencies in the upper lungs, consistent with emphysema. No pleural effusion or pneumothorax. The heart size is normal. IMPRESSION: 1. Severe emphysema. 2. Mild atelectasis in the lower lung zones. Reviewed, dictated and finalized at location A.
[2021-01-22 17:43] VITALS: BP 107/83; PULSE 102; RESP 14; TEMP 36.7; O2SAT 98
--- NOTE | 2021-01-22 17:46 | ECG_ITS ---
Measurements Intervals [place] Rate: 100 P: 74 TX: 149 QRS: 85 QRSD: 90 T: 72 QT: 362 QTc: 468 Interpretive Statements SINUS TACHYCARDIA INCOMPLETE RIGHT BUNDLE BRANCH BLOCK LOW QRS VOLTAGE IN PRECORDIAL LEADS MINIMAL Q WAVES- INFERIOR LEADS BASELINE ARTIFACT- I, II, AVR, AVL, AVF, V2-V6 BORDERLINE ECG Electronically Signed On 01-22-2021 20:20:34 CDT by Freedom Mendoza D.O.
[2021-01-22 18:23] LABS: Basophils Percent Auto 0.5 % (0.2-1.2); Eosinophils Absolute Auto 0.3 K/mm3 (0-0.3); Eosinophils Percent Auto 3.2 % (0-4.4); Hematocrit 41.4 % (37.0-47.0); Immature Granulocyte Absolute 0.02 K/mm3 (0.00-0.031); Immature Granulocyte Percent A 0.3 % (0-0.5); Lymphocytes Percent Auto 13.9 % (18.3-44.2); Mean Corpuscular HGB Conc 33.8 g/dl (32-36); Mean Corpuscular Hemoglobin 32.2 pg (26-34); Mean Corpuscular Volume 95.2 fl (80-100); Mean Platelet Volume 10.4 fl (7.4-10.4); Monocytes Absolute Auto 0.6 K/mm3 (0.1-0.6); Monocytes Percent Auto 6.9 % (2.6-8.5); Neutrophils Percent Auto 75.2 % (45.5-73.1); Platelet Count Result 302 k/mm3 (150-375); Red Blood Count 4.35 M/mm3 (4.2-5.4); Red Cell Distribution Width 12.7 % (11.5-14.5); White Blood Count 7.9 K/mm3 (4.5-10.0)
[2021-01-22 18:36] LABS: Anion Gap 7 mmol/L (8-16); Blood Urea Nitrogen 13 mg/dL (7-17); Calcium 9.4 mg/dL (8.4-10.2); Carbon Dioxide 32 mmol/L (22-30); Chloride 104 mmol/L (98-107); Estimated CRCL calculation 59 ml/min; Estimated Glomerular Filt Rate > 60; Glucose 113 mg/dL (65-110); Potassium 3.6 mmol/L (3.4-5.0); Sodium 143 mmol/L (137-145)
--- NOTE | 2021-01-22 18:57 | ED.SOB ---
HPI - SOB/Dyspnea General Chief Complaint: Shortness of Breath/Dyspnea Stated Complaint: SOB ON HOME O2 Time Seen by Provider: 01/22/21 18:57 Source: patient Mode of arrival: ambulatory Limitations: no limitations History of Present Illness HPI Narrative: Patient is a 70-year-old female with history of COPD, chronic respiratory failure on 2 to 4 L oxygen, KAREN, who is presenting for evaluation of shortness of breath. Patient states that she has had worsening shortness of breath over the past 36 hours. She reports chronic cough, denies increased sputum production. Reports cough is dry. She denies fever, chills, chest pain. No pleuritic pain. No leg swelling or calf pain. No lower extremity edema. No rashes. Does report using her albuterol inhaler at home with some improvement in her symptoms. States she utilizes this 1-4 times daily. She is not currently on any steroids. Pt states this feels like COPD exacerbations that she has had in the past. Her interpreter is Dr. Solis. Related Data Home Medications Medication Instructions Recorded Confirmed acetaminophen 650 mg 650 mg PO Q12H 12/27/19 12/18/20 tablet,extended release Gamunex-C 100 ml IV WEEKLY 03/17/20 12/18/20 Spiriva with HandiHaler 18 mcg INHALATION DAILY 11/22/20 12/18/20 albuterol sulfate 2 puff INHALATION Q4-6H PRN 11/22/20 12/18/20 buspirone 15 mg PO BID 11/22/20 12/18/20 epinephrine 0.3 mg IM .PRN PRN 11/22/20 12/18/20 ergocalciferol (vitamin D2) 1,250 mcg PO WEEKLY 11/22/20 12/18/20 omeprazole 40 mg PO DAILY 11/22/20 12/18/20 potassium chloride 20 meq PO DAILY 11/22/20 12/18/20 roflumilast [Daliresp] 500 mcg PO DAILY 11/22/20 12/18/20 sumatriptan succinate 50 mg PO .PRN PRN 11/22/20 12/18/20 Allergies Allergy/AdvReac Type Severity Reaction Status Date / Time Penicillins Allergy Unknown Swelling Verified 01/22/21 18:55 Sulfa (Sulfonamide Allergy Unknown Rash Verified 01/22/21 18:55 Antibiotics) Review of Systems Review of Systems: CONSTITUTIONAL: Denies fever, chills, or sweats. EYES: Denies visual changes, redness, or discharge. ENT: Denies rhinorrhea, congestion, sore throat, or otalgia. CARDIOVASCULAR: Denies chest pain, palpitations, or edema. RESPIRATORY: Reports dry cough and shortness of breath GASTROINTESTINAL: Denies abdominal pain, nausea, vomiting, or diarrhea. GENITOURINARY: Denies dysuria or hematuria. SKIN: Denies rash or itching. MUSCULOSKELETAL: Denies back pain, joint pain, or myalgia. NEUROLOGIC: Denies headache, numbness, or weakness. [facility] Past Medical History Medical History Anxiety Arthritis of wrist, right Bilateral primary osteoarthritis of knee BMI 31.0-31.9,adult Chest pain in adult Chronic bronchitis Chronic obstructive pulmonary disease Chronic respiratory failure with hypoxia Depression HORN (dyspnea on exertion) Dyslipidemia Eczema Essential hypertension Fatigue Gastro-esophageal reflux disease without esophagitis GERD (gastroesophageal reflux disease) Headache Hiatal hernia History of home oxygen therapy 2L NC at rest, 4L NC with activity HTN (hypertension) Hyperlipidemia Hypothyroid Hypothyroidism, unspecified Iron deficiency Mixed hyperlipidemia (10/28/18) Obstructive sleep apnea Obstructive sleep apnea (adult) (pediatric) Palpitations with regular cardiac rhythm Pneumonia Postmenopausal Pre-diabetes Pulmonary nodule Restless leg syndrome Seasonal allergies Tachycardia Ulcer Uterine cancer Vitamin D deficiency, unspecified Surgical History Surgical History History of carpal tunnel release History of hysterectomy History of tonsillectomy Family History Family History Mother Family history of chronic obstructive pulmonary disease Hypertension Chronic obstructive pulmonary disease Sibling Family history of malignant
[2021-01-22 19:01] VITALS: O2SAT 98
[2021-01-22 19:24] VITALS: PULSE 92; RESP 28
[2021-01-22] MEDS: IPRATROPIUM BR 0.02% INH SOLN 0.5 MG/2.5 ML VIAL 1 MG INHALATION (19:24)
[2021-01-22] MEDS: ALBUTEROL SULFATE NEB 2.5 MG/0.5 ML INH 10 MG INHALATION (19:24)
[2021-01-22] MEDS: MAGNESIUM SULF 2 GM/WATER 50ML 2 GM/50 ML BAG IVPB (20:08)
[2021-01-22] MEDS: methylPREDNISolone SOD SUCC 125 MG VIAL IV PUSH (20:11)
[2021-01-22] MEDS: SODIUM CHLORIDE 0.9% IV 500 ML 999 ML IV CONT (20:13)
[2021-01-22 20:31] VITALS: PULSE 100; RESP 22
[2021-01-22 21:45] VITALS: O2SAT 99
[2021-01-22 22:06] VITALS: BP 109/67; PULSE 104; RESP 16; O2SAT 98
== END 2021-01-22 22:03 | disposition home or self-care (01) ==
PROVIDERS: Emergency Medicine; Emergency Provider Emergency Medicine; PCP Internal Medicine
DX: J44.1 Chronic obstructive pulmonary disease with (acute) exacerbation (principal); J96.11 Chronic respiratory failure with hypoxia; Z87.891 Personal history of nicotine dependence; Z99.81 Dependence on supplemental oxygen; Z77.22 Contact with and (suspected) exposure to environmental tobacco smoke (acute) (chronic); G47.33 Obstructive sleep apnea (adult) (pediatric); M17.0 Bilateral primary osteoarthritis of knee; M19.031 Primary osteoarthritis, right wrist; I10 Essential (primary) hypertension; K21.9 Gastro-esophageal reflux disease without esophagitis; E03.9 Hypothyroidism, unspecified; E78.2 Mixed hyperlipidemia; R73.03 Prediabetes; G25.81 Restless legs syndrome; E55.9 Vitamin D deficiency, unspecified; Z85.42 Personal history of malignant neoplasm of other parts of uterus; R00.0 Tachycardia, unspecified; I45.10 Unspecified right bundle-branch block; R94.31 Abnormal electrocardiogram [ECG] [EKG]
CPT/HCPCS: 36415; 71046; 80048; 85025; 93005; 94640; 96365; 96375; 99284; J2930; J3475; J7040

== ENCOUNTER 2021-02-28 21:10 | Emergency (ER) | payer MEDICARE, MEDICAID, SELFPAY ==
[2021-02-28] VITALS (10 sets, daily range): BP systolic 103–151; BP diastolic 56–92; PULSE 93–106; RESP 18–28; TEMP 36.4; O2SAT 94–100
--- NOTE | ~2021-02-28 | XR_ITS ---
EXAMINATION: XR chest 2V DATE: 02/28/2021 22:18 INDICATION: COPD, congestive heart failure and chronic bronchitis presenting with 2-3 days of dyspnea TECHNIQUE: frontal and lateral views of the chest were obtained. COMPARISON: Chest radiograph dated 01/22/2021 FINDINGS: Increased lucency and architectural distortion in the bilateral upper lung zones consistent with emph ysema. Mild bronchial wall thickening in the bilateral lower lung zones but appreciated on the latera l projection. No airspace opacities, pleural effusion or pneumothorax. The cardiomediastinal silhouet te is normal. Mild thoracic and severe lower cervical spondylosis. IMPRESSION: 1. Emphysema. 2. Bronchial wall thickening without evident airspace opacities which could represent bronchitis, beverly ctive airway disease/asthma or mild pulmonary edema with peribronchial cuffing. Reviewed, dictated and finalized at location A. STANT MEDIA PLANNER IMPRESSION: 1. Emphysema. 2. Bronchial wall thickening without evident airspace opacities which could rep resent bronchitis, reactive airway disease/asthma or mild pulmonary edema with peribronchial cuffing.
--- NOTE | 2021-02-28 21:43 | PC.NURSE ---
Pt up to commode with bench lay out technician, pt O2 drops to 75%. Pt placed on 4L O2 NC. O2 sat on 95%.
--- NOTE | 2021-02-28 21:58 | ECG_ITS ---
Measurements Intervals [place] Rate: 98 P: 79 CO: 154 QRS: 83 QRSD: 86 T: 71 QT: 357 QTc: 457 Interpretive Statements SINUS RHYTHM INCOMPLETE RIGHT BUNDLE BRANCH BLOCK BASELINE ARTIFACT- I, AVL, V1-V6 BORDERLINE ECG Electronically Signed On 03-01-2021 7:58:41 LABORATORY PHLEBOTOMIST by Freedom Mendoza D.O.
--- NOTE | 2021-02-28 22:07 | ED.SOB ---
HPI - SOB/Dyspnea General Chief Complaint: Shortness of Breath/Dyspnea Stated Complaint: sob Time Seen by Provider: 02/28/21 21:41 Source: patient History of Present Illness HPI Narrative: Patient presents with shortness of breath. She reports a history of COPD will occasionally have COPD exacerbations today symptoms feel like her prior COPD exacerbations. Short she has had increased shortness of breath over the past couple days has not noted increasing cough. She denies any fevers, chest pain, abdominal pain, nausea, vomiting, diarrhea. She reports she attempted her home inhalers but was not successful. Reports usually gets DuoNeb therapies and steroids and is able to manage her symptoms at home. Related Data Home Medications Medication Instructions Recorded Confirmed acetaminophen 650 mg 650 mg PO Q12H 12/27/19 02/07/21 tablet,extended release Gamunex-C 100 ml IV WEEKLY 03/17/20 02/07/21 omeprazole 40 mg PO DAILY 11/22/20 02/07/21 potassium chloride 20 meq PO DAILY 11/22/20 02/07/21 roflumilast [Daliresp] 500 mcg PO DAILY 11/22/20 02/07/21 sumatriptan succinate 50 mg PO .PRN PRN 11/22/20 02/07/21 Allergies Allergy/AdvReac Type Severity Reaction Status Date / Time Penicillins Allergy Unknown Swelling Verified 02/28/21 21:33 Sulfa (Sulfonamide Allergy Unknown Rash Verified 02/28/21 21:33 Antibiotics) Review of Systems Review of Systems: CONSTITUTIONAL: Denies fever, chills, or sweats. EYES: Denies visual changes, redness, or discharge. ENT: Denies rhinorrhea, congestion, sore throat, or otalgia. CARDIOVASCULAR: Denies chest pain, palpitations, or edema. RESPIRATORY: Reports shortness of breath no increased from baseline cough GASTROINTESTINAL: Denies abdominal pain, nausea, vomiting, or diarrhea. GENITOURINARY: Denies dysuria or hematuria. SKIN: Denies rash or itching. MUSCULOSKELETAL: Denies back pain, joint pain, or myalgia. NEUROLOGIC: Denies headache, numbness, dizziness, or weakness. PSYCHIATRIC: Denies anxiety or depression. All systems reviewed & are unremarkable except as noted in HPI and below PMFSH Past Medical History Medical History Anxiety Arthritis of wrist, right Bilateral primary osteoarthritis of knee BMI 31.0-31.9,adult Chest pain in adult Chronic bronchitis Chronic obstructive pulmonary disease Chronic respiratory failure with hypoxia Depression HORN (dyspnea on exertion) Dyslipidemia Eczema Essential hypertension Fatigue Gastro-esophageal reflux disease without esophagitis GERD (gastroesophageal reflux disease) Headache Hiatal hernia History of home oxygen therapy 2L NC at rest, 4L NC with activity HTN (hypertension) Hyperlipidemia Hypothyroid Hypothyroidism, unspecified Iron deficiency Mixed hyperlipidemia (10/28/18) Obstructive sleep apnea Obstructive sleep apnea (adult) (pediatric) Palpitations with regular cardiac rhythm Pneumonia Postmenopausal Pre-diabetes Pulmonary nodule Restless leg syndrome Seasonal allergies Tachycardia Ulcer Uterine cancer Vitamin D deficiency, unspecified Surgical History Surgical History History of carpal tunnel release History of hysterectomy History of tonsillectomy Family History Family History Mother Family history of chronic obstructive pulmonary disease Hypertension Chronic obstructive pulmonary disease Sibling Family history of malignant neoplasm Asthma Grandparent Acute myocardial infarction Social History Social History Smoking packs per day: 2 Smoking cigarettes per day: 40.0 Years smoked: 40 Smoking pack-years: 80.00 Smoking status: Former smoker Tobacco type: cigarettes Second hand tobacco smoke exposure: Yes Smoking end date: 04/12/07 Alcohol intake: former Substance use: never
[2021-02-28] MEDS: methylPREDNISolone SOD SUCC 125 MG VIAL IV PUSH (22:21)
[2021-02-28] MEDS: SODIUM CHLORIDE 0.9% IV 500 ML 999 ML IV CONT (22:26)
[2021-02-28] MEDS: IPRATROPIUM BR 0.02% INH SOLN 0.5 MG/2.5 ML VIAL 1.5 MG INHALATION (22:27)
[2021-02-28] MEDS: ALBUTEROL SULFATE NEB 2.5 MG/0.5 ML INH 20 MG INHALATION (22:27)
[2021-02-28 22:48] LABS: Basophils Percent Auto 0.6 % (0.2-1.2); Eosinophils Absolute Auto 0.1 K/mm3 (0-0.3); Eosinophils Percent Auto 2.5 % (0-4.4); Immature Granulocyte Absolute 0.01 K/mm3 (0.00-0.031); Immature Granulocyte Percent A 0.3 % (0-0.5); Lymphocytes Absolute Auto 0.91 K/mm3 (0.9-3.2); Lymphocytes Percent Auto 25.3 % (18.3-44.2); Mean Corpuscular HGB Conc 32.2 g/dl (32-36); Mean Corpuscular Hemoglobin 32.2 pg (26-34); Mean Platelet Volume 10.2 fl (7.4-10.4); Monocytes Absolute Auto 0.4 K/mm3 (0.1-0.6); Monocytes Percent Auto 11.9 % (2.6-8.5); Neutrophils Absolute Auto 2.1 K/mm3 (1.3-6.7); Neutrophils Percent Auto 59.4 % (45.5-73.1); Platelet Count Result 115 k/mm3 (150-375); Red Cell Distribution Width 12.9 % (11.5-14.5); White Blood Count 3.6 K/mm3 (4.5-10.0)
[2021-02-28 22:50] LABS: Hemoglobin 5.8 g/dL (12.0-15.0)
[2021-02-28 23:04] LABS: Basophils Percent Auto 0.4 % (0.2-1.2); Eosinophils Absolute Auto 0.1 K/mm3 (0-0.3); Eosinophils Percent Auto 1.9 % (0-4.4); Hematocrit 39.5 % (37.0-47.0); Hemoglobin 13.2 g/dL (12.0-15.0); Immature Granulocyte Absolute 0.02 K/mm3 (0.00-0.031); Immature Granulocyte Percent A 0.3 % (0-0.5); Lymphocytes Absolute Auto 2.21 K/mm3 (0.9-3.2); Lymphocytes Percent Auto 31.5 % (18.3-44.2); Mean Corpuscular HGB Conc 33.4 g/dl (32-36); Mean Corpuscular Hemoglobin 32.2 pg (26-34); Mean Corpuscular Volume 96.3 fl (80-100); Mean Platelet Volume 10.1 fl (7.4-10.4); Monocytes Absolute Auto 0.8 K/mm3 (0.1-0.6); Monocytes Percent Auto 11.4 % (2.6-8.5); Neutrophils Absolute Auto 3.8 K/mm3 (1.3-6.7); Neutrophils Percent Auto 54.5 % (45.5-73.1); Platelet Count Result 242 k/mm3 (150-375)
[2021-02-28 23:39] LABS: Alanine Aminotransferase 18 U/L (4-35); Albumin Level 4.1 g/dL (3.5-5.1); Alkaline Phosphatase 127 U/L (38-126); Anion Gap 6 mmol/L (8-16); Aspartate Amino Transferase 23 U/L (14-36); Bilirubin,Total 0.6 mg/dL (0.2-1.3); Blood Urea Nitrogen 8 mg/dL (7-17); Carbon Dioxide 29 mmol/L (22-30); Chloride 104 mmol/L (98-107); Estimated CRCL calculation 68 ml/min; Estimated Glomerular Filt Rate > 60; Glucose 129 mg/dL (65-110); Potassium 3.2 mmol/L (3.4-5.0); Sodium 139 mmol/L (137-145)
[2021-03-01 00:01] VITALS: BP 108/67; PULSE 104; RESP 27; O2SAT 95
[2021-03-01 00:31] VITALS: BP 121/67; PULSE 103; RESP 19
[2021-03-01 00:54] VITALS: BP 125/76; PULSE 104; RESP 24; O2SAT 93
== END 2021-03-01 00:55 | disposition home or self-care (01) ==
PROVIDERS: Emergency Provider Emergency Medicine; PCP Internal Medicine
DX: J44.1 Chronic obstructive pulmonary disease with (acute) exacerbation (principal); J96.01 Acute respiratory failure with hypoxia; I10 Essential (primary) hypertension; E03.9 Hypothyroidism, unspecified; E78.2 Mixed hyperlipidemia; R73.03 Prediabetes; G47.33 Obstructive sleep apnea (adult) (pediatric); G25.81 Restless legs syndrome; K21.9 Gastro-esophageal reflux disease without esophagitis; E61.1 Iron deficiency; E55.9 Vitamin D deficiency, unspecified; F32.A Depression, unspecified; Z85.42 Personal history of malignant neoplasm of other parts of uterus; Z87.01 Personal history of pneumonia (recurrent); I45.10 Unspecified right bundle-branch block
CPT/HCPCS: 36415; 71046; 80053; 85025; 86850; 86900; 86901; 93005; 94640; 96361; 96365; 96375; 99284; J0456; J2930; J7040

== ENCOUNTER 2021-04-02 18:59 | Emergency (ER) | payer MEDICARE, MEDICAID, SELFPAY ==
--- NOTE | ~2021-04-02 | XR_ITS ---
EXAMINATION: XR chest 1V portable DATE: 04/02/2021 22:55 INDICATION: Shortness of breath TECHNIQUE: frontal view of the chest was obtained. COMPARISON: Chest radiograph dated 02/28/2021 FINDINGS: Increased lucency and architectural distortion in the upper lung zones consistent with emphysema. Str eaky atelectasis at the bilateral lower lung zones. No pleural effusion or pneumothorax. Heart size i s normal with bilateral small paracardial fat pads. IMPRESSION: 1. Emphysema with bibasilar atelectasis/scarring. Reviewed, dictated and finalized at location H. OMER SERVICE SECURITY OFFICER
[2021-04-02 19:00] VITALS: BP 153/85; PULSE 117; RESP 22; TEMP 36.8; O2SAT 98
--- NOTE | 2021-04-02 22:44 | ECG_ITS ---
Measurements Intervals [place] Rate: 99 P: 70 [place]: 135 QRS: 77 QRSD: 98 T: 74 QT: 356 QTc: 458 Interpretive Statements SINUS RHYTHM INCOMPLETE RIGHT BUNDLE BRANCH BLOCK BASELINE ARTIFACT- I, II, III, AVR, AVL, AVF, V1, V4-V6 BORDERLINE ECG Electronically Signed On 04-03-2021 7:43:29 CART PUSHER by Freedom Mendoza D.O.
--- NOTE | 2021-04-02 22:46 | ED.SOB ---
HPI - SOB/Dyspnea General Chief Complaint: Shortness of Breath/Dyspnea Stated Complaint: sob Time Seen by Provider: 04/02/21 22:43 Source: patient Mode of arrival: ambulatory Limitations: no limitations History of Present Illness HPI Narrative: Patient is a 70-year-old female complaining of shortness of breath that started yesterday but worse today. Patient states that her shortness of breath is worse with exertion. Patient claims that her oxygen saturation dropped to 80% at home, usually on 2 L of continuous O2 at home. Patient denies any chest pain, abdominal pain, nausea, vomiting, diaphoresis, fever or chills. Related Data Home Medications Medication Instructions Recorded Confirmed acetaminophen 650 mg 650 mg PO Q12H 12/27/19 03/14/21 tablet,extended release Gamunex-C 100 ml IV WEEKLY 03/17/20 03/14/21 roflumilast [Daliresp] 500 mcg PO DAILY 11/22/20 03/14/21 sumatriptan succinate 50 mg PO .PRN PRN 11/22/20 03/14/21 Allergies Allergy/AdvReac Type Severity Reaction Status Date / Time Penicillins Allergy Unknown Swelling Verified 03/14/21 13:28 Sulfa (Sulfonamide Allergy Unknown Rash Verified 03/14/21 13:28 Antibiotics) Review of Systems Review of Systems: All systems reviewed & are unremarkable except as noted in HPI and below Constitutional: Constitutional: Denies body ache(s), Denies chills, Denies excessive sweating, Denies fatigue, Denies fever(s), Denies headache(s), Denies lethargy, Denies malaise, Denies weakness and Denies weight loss Eyes: Eyes: Denies blurry vision, Denies change in vision and Denies loss of vision ENT: Denies dizziness, Denies ear discharge, Denies headache(s), Denies lip swelling, Denies epistaxis, Denies nasal congestion, Denies neck pain, Denies throat swelling and Denies tongue swelling Cardiovascular: Cardiovascular: Denies chest pain, Denies chest pain at rest, Denies chest pain with activity, Denies diaphoresis, Denies rapid heart rate, Denies edema, Denies irregular heart rhythm, Denies lightheadedness and Denies palpitations Respiratory: Respiratory: Denies chest congestion, Denies cough and Denies hemoptysis Gastrointestinal: Gastrointestinal: Denies abdominal pain, Denies melena, Denies hematochezia, Denies diarrhea, Denies nausea, Denies vomiting and Denies hematemesis Musculoskeletal: Musculoskeletal: Denies abnormal gait, Denies deformity, Denies joint swelling, Denies limited range of motion, Denies neck pain and Denies numbness Neurologic: Denies Abnormal speech present, Denies abnormal gait, Denies confusion, Denies dizziness, Denies headache(s), Denies focal weakness, Denies loss of vision, Denies numbness, Denies Other visual disturbances, Denies Sensory deficit (Neuro) and Denies weakness Psychiatric: Psychiatric: Denies confusion, Denies depression, Denies auditory hallucinations, Denies homicidal ideation and Denies suicidal ideation Endocrine: Endocrine: Denies cold intolerance, Denies excessive sweating, Denies fatigue, Denies heat intolerance and Denies palpitations Hematologic/Lymphatic: Hematologic/Lymphatic: Denies easy bleeding and Denies easy bruising Allergic/Immunologic: Allergic/Immunologic: Denies lip swelling, Denies throat swelling and Denies tongue swelling PMFSH Past Medical History Medical History Anxiety Arthritis of wrist, right Bilateral primary osteoarthritis of knee BMI 31.0-31.9,adult Chest pain in adult Chronic bronchitis Chronic obstructive pulmonary disease Chronic respiratory failure with hypoxia Depression HORN (dyspnea on exertion) Dyslipidemia Eczema Essential hypertension Fatigue Gastro-esophageal reflux disease without esophagitis GERD (gastroesophageal reflux disease) Headache Hiatal hernia History of home oxygen therapy 2L NC at rest, 4L NC with activity HTN (hypertension) Hyperlipidemia Hypothyroid Hypothyroidism, unspecified Iron deficiency Mixed hyperlipidemia
[2021-04-02 23:05] VITALS: PULSE 80; RESP 18
[2021-04-02] MEDS: ALBUTEROL SULFATE NEB 2.5 MG/0.5 ML INH 5 MG INHALATION (23:05)
[2021-04-02] MEDS: IPRATROPIUM BR 0.02% INH SOLN 0.5 MG/2.5 ML VIAL INHALATION (23:05)
[2021-04-02 23:07] VITALS: BP 113/71; PULSE 99; RESP 25; O2SAT 92
[2021-04-02 23:18] VITALS: BP 113/71; PULSE 97; PULSE 99; RESP 20; O2SAT 96
[2021-04-02 23:19] VITALS: O2SAT 92
[2021-04-02] MEDS: methylPREDNISolone SOD SUCC 125 MG VIAL IV PUSH (23:19)
--- NOTE | 2021-04-02 23:29 | PCRCNOTE ---
Veterinarian Helper attempted ABG in right radial. Patient requests blog writer to stop and refuses ABG. Provider notified.
[2021-04-02 23:44] LABS: Basophils Percent Auto 0.5 % (0.2-1.2); Eosinophils Absolute Auto 0.2 K/mm3 (0-0.3); Eosinophils Percent Auto 2.8 % (0-4.4); Hematocrit 41.3 % (37.0-47.0); Hemoglobin 13.9 g/dL (12.0-15.0); Lymphocytes Absolute Auto 1.39 K/mm3 (0.9-3.2); Lymphocytes Percent Auto 23.2 % (18.3-44.2); Mean Corpuscular HGB Conc 33.7 g/dl (32-36); Mean Corpuscular Volume 95.2 fl (80-100); Mean Platelet Volume 10.5 fl (7.4-10.4); Monocytes Absolute Auto 0.7 K/mm3 (0.1-0.6); Monocytes Percent Auto 11.2 % (2.6-8.5); Neutrophils Absolute Auto 3.7 K/mm3 (1.3-6.7); Neutrophils Percent Auto 62.3 % (45.5-73.1); Platelet Count Result 259 k/mm3 (150-375); Red Blood Count 4.34 M/mm3 (4.2-5.4); Red Cell Distribution Width 13.4 % (11.5-14.5)
[2021-04-02 23:58] LABS: INR 0.9; Prothrombin Time 11.8 Seconds (11.1-14.7)
[2021-04-02 23:59] LABS: Partial Thromboplastin Time 29.6 SECONDS (22.3-36.8)
[2021-04-03 00:01] LABS: Alanine Aminotransferase 26 U/L (4-35); Albumin Level 3.9 g/dL (3.5-5.1); Alkaline Phosphatase 110 U/L (38-126); Anion Gap 6 mmol/L (8-16); Aspartate Amino Transferase 33 U/L (14-36); Bilirubin,Total 0.4 mg/dL (0.2-1.3); Blood Urea Nitrogen 8 mg/dL (7-17); Calcium 8.9 mg/dL (8.4-10.2); Carbon Dioxide 29 mmol/L (22-30); Chloride 103 mmol/L (98-107); Estimated CRCL calculation 68 ml/min; Estimated Glomerular Filt Rate > 60; Glucose 102 mg/dL (65-110); Potassium 3.7 mmol/L (3.4-5.0); Sodium 138 mmol/L (137-145)
[2021-04-03 00:13] LABS: NT Pro B Type Natriuretic Pept 46 pg/mL (5-100); Troponin I < 0.012 ng/mL (0.000-0.034)
[2021-04-03 00:14] VITALS: BP 109/75; PULSE 96; RESP 24; O2SAT 99
[2021-04-03 00:57] VITALS: BP 119/78; PULSE 98; RESP 23; O2SAT 97
[2021-04-03] MEDS: AZITHROMYCIN 250 MG TABLET 500 MG PO (01:46)
[2021-04-03 02:05] VITALS: BP 120/76; PULSE 97; RESP 24; O2SAT 98
== END 2021-04-03 02:07 | disposition home or self-care (01) ==
PROVIDERS: Emergency Provider Emergency Medicine; PCP Internal Medicine
DX: J44.1 Chronic obstructive pulmonary disease with (acute) exacerbation (principal); J96.11 Chronic respiratory failure with hypoxia; Z87.01 Personal history of pneumonia (recurrent); I10 Essential (primary) hypertension; E03.9 Hypothyroidism, unspecified; E78.5 Hyperlipidemia, unspecified; R73.03 Prediabetes; G47.33 Obstructive sleep apnea (adult) (pediatric); G25.81 Restless legs syndrome; K21.9 Gastro-esophageal reflux disease without esophagitis; E61.1 Iron deficiency; E55.9 Vitamin D deficiency, unspecified; F32.A Depression, unspecified; Z85.42 Personal history of malignant neoplasm of other parts of uterus; I45.10 Unspecified right bundle-branch block; Z99.81 Dependence on supplemental oxygen
CPT/HCPCS: 36415; 71045; 80053; 83880; 84484; 85025; 85610; 85730; 93005; 94640; 96365; 96375; 99284; A9270; J0696; J2930

== ENCOUNTER 2021-04-27 20:36 | Emergency (ER) | payer MEDICARE, MEDICAID, SELFPAY ==
--- NOTE | ~2021-04-27 | XR_ITS ---
XR chest 2V DATE: 04/28/2021 01:31 INDICATION: Cough, shortness of breath. History of COPD and hypertension TECHNIQUE: AP and lateral views COMPARISON: 04/02/2021 portable AP chest FINDINGS: Bilateral hyperinflation consistent with clinical diagnosis of COPD. No pulmonary consolidation, pleural effusion, pulmonary vascular congestion or pneumothorax is eviden t. Normal heart size. Aortic arch calcification, mild aortic unfolding. No hilar or mediastinal enlargem ent. There is diffuse osteopenia. IMPRESSION: Bilateral hyperinflation consistent with clinical diagnosis of COPD Aortic atherosclerosis Reviewed, dictated and finalized at location A. NT SERVICE REPRESENTATIVE
[2021-04-27 20:56] VITALS: BP 149/79; PULSE 110; RESP 22; TEMP 36.4; O2SAT 96
--- NOTE | 2021-04-27 21:01 | PC.NURSE ---
Refuses to allow visitor to wait in car. reports to this RN she can have someone in case she falls out .
[2021-04-28] VITALS (7 sets, daily range): BP systolic 117–127; BP diastolic 68–91; PULSE 102–133; RESP 20–23; O2SAT 95–97
[2021-04-28] MEDS: ALBUTEROL SULFATE NEB 2.5 MG/0.5 ML INH 5 MG INHALATION (01:09)
[2021-04-28] MEDS: IPRATROPIUM BR 0.02% INH SOLN 0.5 MG/2.5 ML VIAL INHALATION (01:09)
[2021-04-28 01:31] LABS: Basophils Absolute Auto 0.1 K/mm3 (0.0-0.1); Basophils Percent Auto 0.7 % (0.2-1.2); Eosinophils Absolute Auto 0.2 K/mm3 (0-0.3); Eosinophils Percent Auto 2.9 % (0-4.4); Hematocrit 40.8 % (37.0-47.0); Immature Granulocyte Absolute 0.03 K/mm3 (0.00-0.031); Immature Granulocyte Percent A 0.4 % (0-0.5); Lymphocytes Absolute Auto 1.76 K/mm3 (0.9-3.2); Lymphocytes Percent Auto 25.7 % (18.3-44.2); Mean Corpuscular HGB Conc 34.3 g/dl (32-36); Mean Corpuscular Hemoglobin 31.9 pg (26-34); Mean Corpuscular Volume 92.9 fl (80-100); Mean Platelet Volume 10.7 fl (7.4-10.4); Monocytes Absolute Auto 0.7 K/mm3 (0.1-0.6); Monocytes Percent Auto 10.5 % (2.6-8.5); Neutrophils Absolute Auto 4.1 K/mm3 (1.3-6.7); Neutrophils Percent Auto 59.8 % (45.5-73.1); Platelet Count Result 270 k/mm3 (150-375); Red Blood Count 4.39 M/mm3 (4.2-5.4); White Blood Count 6.9 K/mm3 (4.5-10.0)
[2021-04-28 01:37] LABS: Alanine Aminotransferase 20 U/L (4-35); Albumin Level 4.1 g/dL (3.5-5.1); Alkaline Phosphatase 105 U/L (38-126); Anion Gap 6 mmol/L (8-16); Aspartate Amino Transferase 24 U/L (14-36); Bilirubin,Total 0.3 mg/dL (0.2-1.3); Blood Urea Nitrogen 11 mg/dL (7-17); Calcium 9.1 mg/dL (8.4-10.2); Carbon Dioxide 29 mmol/L (22-30); Chloride 105 mmol/L (98-107); Estimated CRCL calculation 60 ml/min; Estimated Glomerular Filt Rate > 60; Glucose 112 mg/dL (65-110); Potassium 3.4 mmol/L (3.4-5.0); Sodium 140 mmol/L (137-145)
[2021-04-28 01:44] LABS: NT Pro B Type Natriuretic Pept 52 pg/mL (5-100)
--- NOTE | 2021-04-28 03:56 | ED.SOB ---
HPI - SOB/Dyspnea General Chief Complaint: Shortness of Breath/Dyspnea Stated Complaint: shortness of breath Time Seen by Provider: 04/28/21 00:25 History of Present Illness HPI Narrative: Patient is a 70-year-old female who presents ER with shortness of breath. Ongoing over the last 6 weeks. Has been on 2 steroid tapers and recently azithromycin. Reports cough is productive. No increased oxygen requirement. Chronically wears 2 L at rest and 4 L with exertion. Reports she has shortness of breath with walking around. No fevers or chills or sweats. No loss of consciousness. Has some discomfort in her lower chest due to frequent coughing. Has not gotten into see her airline stewardess. She has been using nebulizer treatments at home. Related Data Home Medications Medication Instructions Recorded Confirmed acetaminophen 650 mg 650 mg PO Q12H 12/27/19 03/14/21 tablet,extended release Gamunex-C 100 ml IV WEEKLY 03/17/20 03/14/21 roflumilast [Daliresp] 500 mcg PO DAILY 11/22/20 03/14/21 sumatriptan succinate 50 mg PO .PRN PRN 11/22/20 03/14/21 Allergies Allergy/AdvReac Type Severity Reaction Status Date / Time Penicillins Allergy Unknown Swelling Verified 03/14/21 13:28 Sulfa (Sulfonamide Allergy Unknown Rash Verified 03/14/21 13:28 Antibiotics) Review of Systems Review of Systems: All systems reviewed & are unremarkable except as noted in HPI and below Constitutional: Constitutional: Denies chills, Reports fatigue and Denies fever(s) ENT: Denies nasal congestion and Denies sore throat Cardiovascular: Cardiovascular: Denies chest pain, Denies rapid heart rate and Denies radiating jaw, neck or arm pain Respiratory: Respiratory: Reports cough (Productive), Reports dyspnea and Reports wheezing Gastrointestinal: Gastrointestinal: Denies abdominal pain, Denies nausea and Denies vomiting PMF Past Medical History Medical History Anxiety Arthritis of wrist, right Bilateral primary osteoarthritis of knee BMI 31.0-31.9,adult Chest pain in adult Chronic bronchitis Chronic obstructive pulmonary disease Chronic respiratory failure with hypoxia Depression HORN (dyspnea on exertion) Dyslipidemia Eczema Essential hypertension Fatigue Gastro-esophageal reflux disease without esophagitis GERD (gastroesophageal reflux disease) Headache Hiatal hernia History of home oxygen therapy 2L NC at rest, 4L NC with activity HTN (hypertension) Hyperlipidemia Hypothyroid Hypothyroidism, unspecified Iron deficiency Mixed hyperlipidemia (10/28/18) Obstructive sleep apnea Obstructive sleep apnea (adult) (pediatric) Palpitations with regular cardiac rhythm Pneumonia Postmenopausal Pre-diabetes Pulmonary nodule Restless leg syndrome Seasonal allergies Tachycardia Ulcer Uterine cancer Vitamin D deficiency, unspecified Surgical History Surgical History History of carpal tunnel release History of hysterectomy History of tonsillectomy Family History Family History Mother Family history of chronic obstructive pulmonary disease Hypertension Chronic obstructive pulmonary disease Sibling Family history of malignant neoplasm Asthma Grandparent Acute myocardial infarction Social History Social History Smoking packs per day: 2 Smoking cigarettes per day: 40.0 Years smoked: 40 Smoking pack-years: 80.00 Tobacco type: cigarettes Second hand tobacco smoke exposure: Yes Smoking end date: 04/12/07 Alcohol intake: former Substance use: never 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
[2021-04-28] MEDS: predniSONE 40 MG, predniSONE 10 MG 50 MG PO (04:15)
== END 2021-04-28 04:21 | disposition home or self-care (01) ==
PROVIDERS: Emergency Provider Emergency Medicine; PCP Internal Medicine
DX: J44.1 Chronic obstructive pulmonary disease with (acute) exacerbation (principal); J96.11 Chronic respiratory failure with hypoxia; I10 Essential (primary) hypertension; E78.2 Mixed hyperlipidemia; E03.9 Hypothyroidism, unspecified; R73.03 Prediabetes; G47.33 Obstructive sleep apnea (adult) (pediatric); K21.9 Gastro-esophageal reflux disease without esophagitis; E61.1 Iron deficiency; E55.9 Vitamin D deficiency, unspecified; M17.0 Bilateral primary osteoarthritis of knee; M19.031 Primary osteoarthritis, right wrist; F32.A Depression, unspecified; G25.81 Restless legs syndrome; Z85.42 Personal history of malignant neoplasm of other parts of uterus; Z87.01 Personal history of pneumonia (recurrent); Z99.81 Dependence on supplemental oxygen; Z87.891 Personal history of nicotine dependence
CPT/HCPCS: 36415; 71046; 80053; 83880; 85025; 94640; 99284; J7512

== ENCOUNTER → 2021-04-30 01:19 | Outpatient (CLI) | payer MEDICARE, MEDICAID, SELFPAY ==
[2021-04-30 14:02] LABS: Influenza A QL RT-PCR Negative (Negative); Influenza B QL RT-PCR Negative (Negative); SARS-CoV-2 RNA PCR Negative
== END ==
PROVIDERS: PCP Internal Medicine; Visit Provider Internal Medicine
DX: R68.89 Other general symptoms and signs (principal); Z20.822 Contact with and (suspected) exposure to COVID-19
CPT/HCPCS: 87502; C9803; U0003; U0005

== ENCOUNTER 2021-07-02 19:14 | Emergency (ER) | payer MEDICARE, MEDICAID, SELFPAY ==
--- NOTE | ~2021-07-02 | CT_ITS ---
EXAMINATION: CT brain wo [facility] EXAM DATE: 07/02/2021 22:15 INDICATION: Fall, head injury. Nausea. TECHNIQUE: Spiral CT of the head was performed without contrast. Axial, coronal and sagittal images were reviewed. The dose-length product (DLP) for this examination was 605.33 mGy-cm. The exposure w as tailored according to patient size, and iterative reconstruction (ASIR) was used as additional dos e reduction technique. Comparison is made to prior examination from 12/12/2020. FINDINGS: There is no acute intraparenchymal hemorrhage. No evidence of intraparenchymal brain mass lesion. No evidence of acute infarction. There is no mass effect or midline shift. The ventricles are normal in size. There are no extra-axial collections. There are no acute calvarial fractures. T he orbits are unremarkable. Small left frontal scalp swelling. Small amount of fluid in the right ma xillary sinus. IMPRESSION: 1. No acute intracranial findings. Reviewed, dictated and finalized at location G.
--- NOTE | ~2021-07-02 | CT_ITS ---
EXAMINATION: CT cervical spine wo con EXAM DATE: 07/02/2021 22:15 INDICATION: Fall, head injury TECHNIQUE: Spiral CT of the cervical spine was performed without contrast. Axial images were reviewe d. Coronal and sagittal reformatted images cervical spine were also reviewed. The dose-length produc t (DLP) for this examination was 415.43 mGy-cm. The exposure was tailored according to patient size (auto mA exposure control), and iterative reconstruction (ASIR) was used as additional dose reduction technique. There is no prior study for comparison. FINDINGS: Severe apical emphysema. There is no evidence of acute cervical fracture. The odontoid pro cess is intact. Pre-dens space is normal. Prevertebral soft tissue is normal. There are no soft ti ssue abnormalities identified. There is no disc space widening or traumatic vertebral body subluxati on suspected. Moderate to severe cervical spondylosis. A detailed level by level evaluation of spon dylosis can be added as addendum if requested. IMPRESSION: 1. No acute cervical fracture. 2. Moderate to severe cervical spondylosis. Reviewed, dictated and finalized at location G.
[2021-07-02 20:05] VITALS: BP 153/101; PULSE 109; RESP 20; TEMP 36.4; O2SAT 95
--- NOTE | 2021-07-02 21:54 | ED.FALL ---
HPI - Fall General Chief Complaint: Fall Stated Complaint: fall, hit head Time Seen by Provider: 07/02/21 21:29 Source: patient Mode of arrival: ambulatory Limitations: no limitations History of Present Illness HPI Narrative: Patient is 70-year-old female who presents to the ED with report of a fall. Patient reports she was having a nightmare last night and fell out of bed, hitting her forehead against her night table. She sustained a small laceration to her left forehead but was able to control the bleeding last night. She did not lose consciousness. No other injuries. She did not seek medical attention at that time. Today, she has experienced lightheadedness and nausea, which prompted her presentation to the ED. She has not vomited. She has been able to eat and drink today some. No neck or back pain. She is not on any blood thinners. She denies any headache, vision changes, weakness, numbness, abdominal pain, chest pain, shortness of breath. Patient chronically wears 2 L nasal cannula oxygen at rest and 4 L with exertion. She reports having a recent cough and notified her acid loader of this who started her on a Z-Amadeo and steroid taper. Related Data Home Medications Medication Instructions Recorded Confirmed acetaminophen 650 mg 650 mg PO Q12H 12/27/19 05/19/21 tablet,extended release Gamunex-C 100 ml IV WEEKLY 03/17/20 05/19/21 Allergies Allergy/AdvReac Type Severity Reaction Status Date / Time Penicillins Allergy Unknown Swelling Verified 05/19/21 11:06 Sulfa (Sulfonamide Allergy Unknown Rash Verified 05/19/21 11:06 Antibiotics) Review of Systems Review of Systems: CONSTITUTIONAL: Denies fever, chills, or sweats. EYES: Denies vision changes. CARDIOVASCULAR: Denies chest pain, palpitations, or edema. RESPIRATORY: Reports cough. Denies dyspnea. GASTROINTESTINAL: Reports nausea. Denies abdominal pain, vomiting, or diarrhea. MUSCULOSKELETAL: Denies back pain, neck pain, or myalgia. NEUROLOGIC: Reports lightheadedness. Denies headache, numbness, or weakness. All systems reviewed & are unremarkable except as noted in HPI and below PMFSH Past Medical History Medical History Anxiety Arthritis of wrist, right Bilateral primary osteoarthritis of knee BMI 31.0-31.9,adult Chest pain in adult Chronic bronchitis Chronic obstructive pulmonary disease Chronic respiratory failure with hypoxia Depression HORN (dyspnea on exertion) Dyslipidemia Eczema Essential hypertension Fatigue Gastro-esophageal reflux disease without esophagitis GERD (gastroesophageal reflux disease) Headache Hiatal hernia History of home oxygen therapy 2L NC at rest, 4L NC with activity HTN (hypertension) Hyperlipidemia Hypothyroid Hypothyroidism, unspecified Iron deficiency Mixed hyperlipidemia (10/28/18) Obstructive sleep apnea Obstructive sleep apnea (adult) (pediatric) Palpitations with regular cardiac rhythm Pneumonia Postmenopausal Pre-diabetes Pulmonary nodule Restless leg syndrome Seasonal allergies Tachycardia Ulcer Uterine cancer Vitamin D deficiency, unspecified Surgical History Surgical History History of carpal tunnel release History of hysterectomy History of tonsillectomy Family History Family History Mother Family history of chronic obstructive pulmonary disease Hypertension Chronic obstructive pulmonary disease Sibling Family history of malignant neoplasm Asthma Grandparent Acute myocardial infarction Social History Social History Smoking packs per day: 2 Smoking cigarettes per day: 40.0 Years smoked: 40 Smoking pack-years: 80.00 Smoking status: Former smoker Tobacco type: cigarettes Second hand tobacco smoke exposure: Yes Smoking end date: 04/12/07 Alcohol in
[2021-07-02] MEDS: ONDANSETRON HCL ODT 4 MG TABLET PO (22:18)
== END 2021-07-02 23:30 | disposition home or self-care (01) ==
PROVIDERS: Emergency Provider Emergency Medicine; PCP Internal Medicine
DX: S01.81XA Laceration without foreign body of other part of head, initial encounter (principal); W06.XXXA Fall from bed, initial encounter; F41.9 Anxiety disorder, unspecified; M19.90 Unspecified osteoarthritis, unspecified site; F32.9 Major depressive disorder, single episode, unspecified; E78.5 Hyperlipidemia, unspecified; I10 Essential (primary) hypertension; K21.9 Gastro-esophageal reflux disease without esophagitis; E03.9 Hypothyroidism, unspecified
CPT/HCPCS: 70450; 72125; 99284; A9270

== ENCOUNTER 2021-07-21 07:44 | Emergency (ER) | payer MEDICARE, MEDICAID, SELFPAY ==
--- NOTE | ~2021-07-21 | XR_ITS ---
EXAMINATION: XR knee LT 3V DATE: 07/21/2021 08:22 INDICATION: Left knee pain TECHNIQUE: Three views of the left knee were obtained. COMPARISON: 04/06/2019 FINDINGS: Alignment is normal. No fracture or osteochondral lesion. There is moderate tricompartmenta l osteoarthritis. There is a moderate size joint effusion. Soft tissues are unremarkable. IMPRESSION: 1. No acute osseous abnormality. 2. Moderate-sized joint effusion and moderate tricompartmental osteoarthritis. Reviewed, dictated and finalized at location A.
--- NOTE | ~2021-07-21 | XR_ITS ---
EXAMINATION: XR ankle LT min 3V DATE: 07/21/2021 08:21 INDICATION: Left ankle pain TECHNIQUE: Anteroposterior, lateral, mortise, and additional oblique view of the ankle were obtained. COMPARISON: 03/03/2019 FINDINGS: Bone alignment is normal. There is no fracture. The soft tissues are unremarkable. A planta r calcaneal enthesophyte is noted. IMPRESSION: 1. No acute osseous abnormality. Reviewed, dictated and finalized at location A.
[2021-07-21 07:42] VITALS: BP 110/73; PULSE 87; RESP 24; TEMP 36.6; O2SAT 97
[2021-07-21 07:50] VITALS: BP 116/77; PULSE 108; RESP 32; O2SAT 98
--- NOTE | 2021-07-21 07:55 | ED.LOWEXIN ---
HPI - Extremity Injury (Lower) General Chief Complaint: Extremity Injury, Lower Stated Complaint: ground level fall - left leg pain Time Seen by Provider: 07/21/21 07:49 Source: patient Mode of arrival: EMS Limitations: no limitations History of Present Illness HPI Narrative: Pt reached over to apple picker dog and fell out of bed landing on left knee and left ankle. Pt denies LOC or other injury. MD complaint: knee injury and ankle injury Injury: Left: knee and ankle Place: home Severity: moderate Relieving factors: nothing Exacerbating factors: weight bearing and movement Context: fall Associated symptoms: swelling and able to partially bear weight Other symptoms: none Treatments prior to arrival: cold therapy Related Data Home Medications Medication Instructions Recorded Confirmed acetaminophen 650 mg 650 mg PO Q12H 12/27/19 05/19/21 tablet,extended release Gamunex-C 100 ml IV WEEKLY 03/17/20 05/19/21 Allergies Allergy/AdvReac Type Severity Reaction Status Date / Time Penicillins Allergy Unknown Swelling Verified 07/21/21 07:48 Sulfa (Sulfonamide Allergy Unknown Rash Verified 07/21/21 07:48 Antibiotics) Review of Systems Review of Systems: All systems reviewed & are unremarkable except as noted in HPI and below PMFSH Past Medical History Medical History Anxiety Arthritis of wrist, right Bilateral primary osteoarthritis of knee BMI 31.0-31.9,adult Chest pain in adult Chronic bronchitis Chronic obstructive pulmonary disease Chronic respiratory failure with hypoxia Depression HORN (dyspnea on exertion) Dyslipidemia Eczema Essential hypertension Fatigue Gastro-esophageal reflux disease without esophagitis GERD (gastroesophageal reflux disease) Headache Hiatal hernia History of home oxygen therapy 2L NC at rest, 4L NC with activity HTN (hypertension) Hyperlipidemia Hypothyroid Hypothyroidism, unspecified Iron deficiency Mixed hyperlipidemia (10/28/18) Obstructive sleep apnea Obstructive sleep apnea (adult) (pediatric) Palpitations with regular cardiac rhythm Pneumonia Postmenopausal Pre-diabetes Pulmonary nodule Restless leg syndrome Seasonal allergies Tachycardia Ulcer Uterine cancer Vitamin D deficiency, unspecified Surgical History Surgical History History of carpal tunnel release History of hysterectomy History of tonsillectomy Family History Family History Mother Family history of chronic obstructive pulmonary disease Hypertension Chronic obstructive pulmonary disease Sibling Family history of malignant neoplasm Asthma Grandparent Acute myocardial infarction Social History Social History Smoking packs per day: 2 Smoking cigarettes per day: 40.0 Years smoked: 40 Smoking pack-years: 80.00 Smoking status: Former smoker Tobacco type: cigarettes Second hand tobacco smoke exposure: Yes Smoking end date: 04/12/07 Alcohol intake: former Substance use: never Substance use type: does not use 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 Gender identity (if verbalized by the patient): Female Spiritual care concerns: No Agree to blood products: No Exam Const: General: no acute distress and alert Orientation/consciousness: patient oriented x3 HENMT: Head: normal to inspection Eyes: Conjunctivae: conjunctivae normal Neck: Neck: normal visual inspection and no meningeal signs Resp: Effort & Inspection: normal respiratory effort Cardio: Rate: regular rate Rhythm: regular rhythm GI: GI Palp: Yes Soft to palpation Auscultation: normal bowel sounds Neuro: General: patient oriented x3, moves all extremities and no focal motor deficits Speech: normal speech Extrem: Other: tender to palpation with swelling o
[2021-07-21 08:26] VITALS: BP 135/85; PULSE 99; RESP 29; O2SAT 98
[2021-07-21 08:33] VITALS: BP 134/68; PULSE 99; RESP 22; O2SAT 99
[2021-07-21 09:01] VITALS: BP 120/86; PULSE 103; RESP 25; O2SAT 99
[2021-07-21 09:16] VITALS: BP 112/92; PULSE 102; RESP 31
--- NOTE | 2021-07-21 09:59 | PC.NURSE ---
PT complaining because she couldnt have coffee until test results are back.
== END 2021-07-21 10:15 | disposition home or self-care (01) ==
PROVIDERS: Emergency Provider Emergency Medicine; PCP Internal Medicine
DX: S80.02XA Contusion of left knee, initial encounter (principal); S93.492A Sprain of other ligament of left ankle, initial encounter; J44.9 Chronic obstructive pulmonary disease, unspecified; J96.11 Chronic respiratory failure with hypoxia; I10 Essential (primary) hypertension; E03.9 Hypothyroidism, unspecified; E78.2 Mixed hyperlipidemia; G47.33 Obstructive sleep apnea (adult) (pediatric); R73.03 Prediabetes; G25.81 Restless legs syndrome; E55.9 Vitamin D deficiency, unspecified; M19.031 Primary osteoarthritis, right wrist; Z85.41 Personal history of malignant neoplasm of cervix uteri; Z87.891 Personal history of nicotine dependence; W06.XXXA Fall from bed, initial encounter
CPT/HCPCS: 73562; 73610; 99284

== ENCOUNTER 2021-09-25 07:24 | Outpatient (CLI) | payer MEDICARE, MEDICAID, SELFPAY ==
--- NOTE | ~2021-09-25 | PE_ITS ---
EXAMINATION: PET skull to mid thigh DATE: 09/25/2021 09:33 INDICATION: Lung mass. TECHNIQUE: Blood glucose level was 121 mg/dL. 11.388 mCi of 18-fluorodeoxyglucose (18-FDG) was admini stered i.v. Low dose computed tomography (CT) images were acquired from the base of the brain to the proximal thighs for attenuation correction and anatomic localization. Automated exposure control was employed. Dose-length product (DLP) was 894 mGy-cm. Positron emission tomography (PET) images were ac quired in the same distribution. COMPARISON: Chest CT 08/26/2021, 08/25/2021 FINDINGS: Head/neck: There is increased activity in the oral cavity, paraspinal muscle and glottis without abno rmal CT correlate, likely physiologic. There are no pathologically enlarged lymph nodes. Chest: There is severe emphysema. There is a 9 mm part solid nodule in left upper lobe with maximum S UV of 1.1, improved from 24 mm. No pleural effusion. The heart size is normal. There are coronary art harjit calcifications. No pericardial effusion. Abdomen/pelvis/proximal thighs: The liver, gallbladder, spleen, pancreas, adrenal glands, and left ki dney are normal. There is a 3.4 cm cyst in right kidney. There are no dilated loops of bowel. There i s diverticulosis of the colon without evidence of diverticulitis. There are no dilated loops of bowel . The appendix is normal. There is a diverticulum of the third portion of the duodenum. There are no pathologically enlarged lymph nodes. There is no free intraperitoneal fluid. There is a 3.7 cm cyst i n right adnexa. There is no osseous malignancy. IMPRESSION: 1. 9 mm part solid nodule in left lung upper lobe without increased activity with marked interval imp rovement, consistent with infection. 2. Severe emphysema. 3. 3.7 cm cyst in right adnexa, likely benign. Pelvis ultrasound is recommended in one year. Reviewed, dictated and finalized at location B. IMPRESSION: 1. 9 mm part solid nodule in left lung upper lobe without increased activity wi th marked interval improvement, consistent with infection. 2. Severe emphysema. 3. 3.7 cm cyst in right adnexa, likely benign. Pelvis ultrasound is recommended in one year.
[2021-09-25 07:49] LABS: Glucose Point of Care 121 mg/dl (65-105)
== END 2021-09-25 07:25 | disposition home or self-care (01) ==
PROVIDERS: PCP Internal Medicine; Visit Provider Nurse Practitioner Family
DX: R91.8 Other nonspecific abnormal finding of lung field (principal); J43.9 Emphysema, unspecified; R91.1 Solitary pulmonary nodule
CPT/HCPCS: 78815; A9552

== ENCOUNTER 2022-02-13 19:50 | Emergency (ER) | payer MEDICARE, MEDICAID, SELFPAY ==
[2022-02-13] VITALS (19 sets, daily range): BP systolic 102–134; BP diastolic 66–91; PULSE 95–111; RESP 17–32; TEMP 37.7; O2SAT 93–100
--- NOTE | ~2022-02-13 | XR_ITS ---
XR chest 1V portable DATE: 02/13/2022 20:54 INDICATION: Shortness of breath, worsening the last 3 days. History of COPD tachycardia. TECHNIQUE: Portable upright AP chest on 02/13/2022 at 2050 hours COMPARISON: 08/25/2021 portable AP chest FINDINGS: Normal heart size. Aortic arch calcification. No hilar or mediastinal enlargement. There is mild infiltrate and/atelectasis in the lower lung zones. Osteopenia. IMPRESSION: There is mild infiltrate or atelectasis in the lower lung zones Reviewed, dictated and finalized at location A.
--- NOTE | 2022-02-13 19:56 | ECG_ITS ---
Measurements Intervals [place] Rate: 98 P: 78 MO: 152 QRS: 76 QRSD: 94 T: 75 QT: 356 QTc: 455 Interpretive Statements SINUS RHYTHM INCOMPLETE RIGHT BUNDLE BRANCH BLOCK BASELINE ARTIFACT- I, III, AVR, AVL, AVF, V4-V5 BORDERLINE ECG COMPARED TO ECG 04/02/2021 23:16:10 NO SIGNIFICANT CHANGES Electronically Signed On 02-13-2022 21:36:51 CDT by Freedom Mendoza D.O.
--- NOTE | 2022-02-13 20:17 | ED.SOB ---
HPI - SOB/Dyspnea General Chief Complaint: Shortness of Breath/Dyspnea <Fabi Roman PA-C - Last Filed: 02/13/22 22:02> Stated Complaint: SOB <Fabi Roman PA-C - Last Filed: 02/13/22 22:02> Time Seen by Provider: 02/13/22 20:08 <Fabi Roman PA-C - Last Filed: 02/13/22 22:02> Source: patient <Fabi Roman PA-C - Last Filed: 02/13/22 22:02> Mode of arrival: ambulatory <Fabi Roman PA-C - Last Filed: 02/13/22 22:02> Limitations: no limitations <Fabi Roman PA-C - Last Filed: 02/13/22 22:02> History of Present Illness HPI Narrative: This is a 71 year old female that presents to the ER for worsening dyspnea noted over the last 3 days. Reports history of COPD. She chronically wears 2L via NC. Reports wheezing, non-productive cough. Patient is noted to have low grade fever in the ER. Reports a brief episode of chest pain prior to arrival last lasted a couple of minutes and was resolved without intervention. Reports it was achy in nature. She sees pulmonology at [facility]. She did do a nebulizer treatment this morning. Denies any current chest pain or lower extremity edema. <Fabi Roman PA-C - Last Filed: 02/13/22 22:02> Related Data Home Medications: Home Medications Medication Instructions Recorded Confirmed acetaminophen 650 mg 650 mg PO Q12H 12/27/19 07/28/21 tablet,extended release (Tylenol Arthritis Pain) immune glob G 10 gram/100 100 ml IV WEEKLY 03/17/20 07/28/21 mL(10%)-gly-IgA ave 46 mcg/mL injection soln (Gamunex-C) <Fabi Roman PA-C - Last Filed: 02/13/22 22:02> Allergies/Adverse Reactions: Allergies Allergy/AdvReac Type Severity Reaction Status Date / Time Penicillins Allergy Unknown Swelling Verified 02/13/22 19:55 Sulfa (Sulfonamide Allergy Unknown Rash Verified 02/13/22 19:55 Antibiotics) <Fabi Roman PA-C - Last Filed: 02/13/22 22:02> Review of Systems Review of Systems: CONSTITUTIONAL: Reports fever CARDIOVASCULAR: Denies current chest pain, or edema. RESPIRATORY: Reports cough and dyspnea. <Fabi Roman PA-C - Last Filed: 02/13/22 22:02> All systems reviewed & are unremarkable except as noted in HPI and below <Fabi Roman PA-C - Last Filed: 02/13/22 22:02> [facility] Past Medical History Medical History: Medical History Anxiety Arthritis of wrist, right Bilateral primary osteoarthritis of knee BMI 31.0-31.9,adult Chest pain in adult Chronic bronchitis Chronic obstructive pulmonary disease Chronic respiratory failure with hypoxia Depression HORN (dyspnea on exertion) Dyslipidemia Eczema Essential hypertension Fatigue Gastro-esophageal reflux disease without esophagitis GERD (gastroesophageal reflux disease) Headache Hiatal hernia History of home oxygen therapy 2L NC at rest, 4L NC with activity HTN (hypertension) Hyperlipidemia Hypothyroid Hypothyroidism, unspecified Iron deficiency Mixed hyperlipidemia (10/28/18) Obstructive sleep apnea Obstructive sleep apnea (adult) (pediatric) Palpitations with regular cardiac rhythm Pneumonia Postmenopausal Pre-diabetes Pulmonary nodule Restless leg syndrome Seasonal allergies Tachycardia Ulcer Uterine cancer Vitamin D deficiency, unspecified <Fabi Roman PA-C - Last Filed: 02/13/22 22:02> Surgical History Surgical History: Surgical History History of carpal tunnel release History of hysterectomy History of tonsillectomy <Fabi Roman PA-C - Last Filed: 02/13/22 22:02> Family History Family History: Family History Mother Family history of chronic obstructive pulmonary disease Hypertension Chronic obstructive pulmonary disease Sibling Family history of malignant neoplasm Asthma Grandparent Acute myocardial infarctio
[2022-02-13 20:20] LABS: Basophils Percent Auto 0.5 % (0.2-1.2); Eosinophils Absolute Auto 0.3 K/mm3 (0-0.3); Eosinophils Percent Auto 3.6 % (0-4.4); Hematocrit 41.4 % (37.0-47.0); Hemoglobin 13.8 g/dL (12.0-15.0); Immature Granulocyte Absolute 0.03 K/mm3 (0.00-0.031); Immature Granulocyte Percent A 0.4 % (0-0.5); Lymphocytes Absolute Auto 1.04 K/mm3 (0.9-3.2); Lymphocytes Percent Auto 13.3 % (18.3-44.2); Mean Corpuscular HGB Conc 33.3 g/dl (32-36); Mean Corpuscular Hemoglobin 30.9 pg (26-34); Mean Corpuscular Volume 92.6 fl (80-100); Mean Platelet Volume 10.3 fl (7.4-10.4); Monocytes Absolute Auto 0.8 K/mm3 (0.1-0.6); Monocytes Percent Auto 10.6 % (2.6-8.5); Neutrophils Absolute Auto 5.6 K/mm3 (1.3-6.7); Neutrophils Percent Auto 71.6 % (45.5-73.1); Platelet Count Result 316 k/mm3 (150-375); Red Blood Count 4.47 M/mm3 (4.2-5.4); Red Cell Distribution Width 12.2 % (11.5-14.5); White Blood Count 7.8 K/mm3 (4.5-10.0)
[2022-02-13 20:31] LABS: Partial Thromboplastin Time 32.2 SECONDS (22.3-36.8); Prothrombin Time 12.7 Seconds (11.1-14.7)
[2022-02-13 20:32] LABS: Alanine Aminotransferase 17 U/L (6-35); Albumin Level 4.1 g/dL (3.5-5.1); Alkaline Phosphatase 153 U/L (38-126); Anion Gap 12 mmol/L (8-16); Aspartate Amino Transferase 22 U/L (14-36); Bilirubin,Total 0.5 mg/dL (0.2-1.3); Blood Urea Nitrogen 13 mg/dL (7-17); Calcium 8.5 mg/dL (8.4-10.2); Carbon Dioxide 26 mmol/L (22-30); Chloride 102 mmol/L (98-107); Estimated CRCL calculation 53 ml/min; Estimated Glomerular Filt Rate > 60; Glucose 114 mg/dL (65-110); Potassium 3.6 mmol/L (3.4-5.0); Sodium 140 mmol/L (137-145)
[2022-02-13] MEDS: ACETAMINOPHEN 500 MG TABLET 1000 MG PO (20:36)
[2022-02-13] MEDS: methylPREDNISolone SOD SUCC 125 MG VIAL IV PUSH (20:37)
[2022-02-13] MEDS: ALBUTEROL SULFATE NEB 2.5 MG/3 ML INH 5 MG INHALATION (20:42)
[2022-02-13] MEDS: IPRATROPIUM BR 0.02% INH SOLN 0.5 MG/2.5 ML VIAL INHALATION (20:42)
[2022-02-13 20:43] LABS: Troponin I < 0.012 ng/mL (0.000-0.034)
[2022-02-13 20:55] LABS: Lactic Acid Reflex 1.4 mmol/L (0.7-2.0)
[2022-02-13 20:59] LABS: Alveolar/Arterial O2 Gradient 60.8 mmHg; Base Excess ABG -0.1 mEq/l (+/-2.0); Carboxyhemoglobin 0.1 % THb (0-2.0); Fractional Inspired Oxygen 28 %; HCO3 ABG 24.3 mEq/l (22.0-26.0); Methemoglobin ABG 0.2 %THb (0-1.5); Oxygen Content ABG 18.7 %vol (16.0-22.0); Oxygen Saturation ABG 97.2 % (95.0-100.0); Oxyhemoglobin 96.2 % THb (90.0-100.0); PCO2 ABG 39.2 mmHg (35.0-45.0); PO2 ABG 92.6 mmHg (80.0-100.0); PO2 FiO2 Ratio Arterial Blood 3.31 %; Reduced Hemoglobin 3.5 %THb (0-5.0); Total Hemoglobin 13.8 g/dL (12.0-18.0); pH ABG 7.411 (7.350-7.450)
[2022-02-13 21:00] LABS: Device NASAL CANNULA; Site Drawn RIGHT BRACHIAL
[2022-02-13 21:20] LABS: Influenza A QL RT-PCR Negative (Negative); Influenza B QL RT-PCR Negative (Negative); SARS-CoV-2 RNA PCR Negative
== END 2022-02-13 22:17 | disposition home or self-care (01) ==
PROVIDERS: Physician Assistant; Emergency Provider Preventive Medicine Aerospace Medicine; PCP Family Medicine
DX: J44.1 Chronic obstructive pulmonary disease with (acute) exacerbation (principal); J96.11 Chronic respiratory failure with hypoxia; J18.9 Pneumonia, unspecified organism; Z20.822 Contact with and (suspected) exposure to COVID-19; I10 Essential (primary) hypertension; E78.2 Mixed hyperlipidemia; K21.9 Gastro-esophageal reflux disease without esophagitis; E03.9 Hypothyroidism, unspecified; E55.9 Vitamin D deficiency, unspecified; G47.33 Obstructive sleep apnea (adult) (pediatric); G25.81 Restless legs syndrome; M19.031 Primary osteoarthritis, right wrist; M17.0 Bilateral primary osteoarthritis of knee; R73.03 Prediabetes; Z99.81 Dependence on supplemental oxygen; Z90.710 Acquired absence of both cervix and uterus; Z85.42 Personal history of malignant neoplasm of other parts of uterus; Z87.891 Personal history of nicotine dependence; R07.9 Chest pain, unspecified; I45.10 Unspecified right bundle-branch block
CPT/HCPCS: 36415; 36600; 71045; 80053; 82375; 82805; 83050; 83605; 84484; 85025; 85610; 85730; 87502; 93005; 94640; 96374; 99284; A9270; J2930; U0003; U0005

== ENCOUNTER 2022-08-07 12:24 | Emergency (ER) | payer MEDICARE, MEDICAID, SELFPAY ==
[2022-08-07] VITALS (13 sets, daily range): BP systolic 114; BP diastolic 65; PULSE 91–106; RESP 17–32; TEMP 36.7; O2SAT 95–100
--- NOTE | ~2022-08-07 | XR_ITS ---
EXAMINATION: XR chest 2V DATE: 08/07/2022 13:07 INDICATION: Wheezing and worsening shortness of breath TECHNIQUE: PA and lateral views of the chest were obtained. COMPARISON: Chest radiograph dated 02/13/[address] dated 08/26/2021. FINDINGS: Increased lucency in the upper lung zones and mild flattening of the diaphragm consistent with emphys sandrita better appreciated on prior CT. Opacities at the bilateral lung bases. No pleural effusion or pne umothorax. The cardiomediastinal silhouette is normal. Mild thoracic spondylosis. IMPRESSION: 1. Mild bibasilar opacities which could represent atelectasis, mild pulmonary edema, pneumonia or ilana e combination thereof. 2. Emphysema. Reviewed, dictated and finalized at location A. IMPRESSION: 1. Mild bibasilar opacities which could represent atelectasis, mild pulmonary e homa, pneumonia or some combination thereof. 2. Emphysema.
--- NOTE | 2022-08-07 12:25 | ECG_ITS ---
Measurements Intervals [place] Rate: 102 P: 70 VA: 136 QRS: 73 QRSD: 93 T: 67 QT: 360 QTc: 469 Interpretive Statements SINUS TACHYCARDIA INCOMPLETE RIGHT BUNDLE BRANCH BLOCK [90+ ms QRS DURATION, TERMINAL R IN V1/V2, 40+ ms S IN I/aVL/V4/V5/V6] ABNORMAL RHYTHM ECG COMPARED TO ECG 02/13/2022 20:20:38 SINUS TACHYCARDIA NOW PRESENT Electronically Signed On 08-07-2022 13:02:53 CDT by Beena Mills M.D.
[2022-08-07 12:46] LABS: Basophils Percent Auto 0.6 % (0.2-1.2); Eosinophils Absolute Auto 0.1 K/mm3 (0-0.3); Eosinophils Percent Auto 1.2 % (0-4.4); Hematocrit 42.8 % (37.0-47.0); Hemoglobin 14.1 g/dL (12.0-15.0); Immature Granulocyte Absolute 0.03 K/mm3 (0.00-0.031); Immature Granulocyte Percent A 0.4 % (0-0.5); Lymphocytes Absolute Auto 1.24 K/mm3 (0.9-3.2); Lymphocytes Percent Auto 17.9 % (18.3-44.2); Mean Corpuscular HGB Conc 32.9 g/dl (32-36); Mean Corpuscular Hemoglobin 29.9 pg (26-34); Mean Corpuscular Volume 90.9 fl (80-100); Mean Platelet Volume 10.1 fl (7.4-10.4); Monocytes Absolute Auto 0.5 K/mm3 (0.1-0.6); Monocytes Percent Auto 7.5 % (2.6-8.5); Neutrophils Percent Auto 72.4 % (45.5-73.1); Platelet Count Result 283 k/mm3 (150-375); Red Blood Count 4.71 M/mm3 (4.2-5.4); White Blood Count 6.9 K/mm3 (4.5-10.0)
[2022-08-07 12:55] LABS: Alanine Aminotransferase 21 U/L (6-35); Albumin Level 4.4 g/dL (3.5-5.1); Alkaline Phosphatase 156 U/L (38-126); Anion Gap 8 mmol/L (8-16); Aspartate Amino Transferase 25 U/L (14-36); Bilirubin,Total 0.6 mg/dL (0.2-1.3); Blood Urea Nitrogen 9 mg/dL (7-17); Calcium 9.2 mg/dL (8.4-10.2); Carbon Dioxide 26 mmol/L (22-30); Chloride 104 mmol/L (98-107); Estimated CRCL calculation 67 ml/min; Estimated Glomerular Filt Rate > 60; Glucose 102 mg/dL (65-110); Potassium 3.8 mmol/L (3.4-5.0); Sodium 138 mmol/L (137-145)
--- NOTE | 2022-08-07 13:42 | PC.NURSE ---
Dr. Almonte at bedside to assess pt.
[2022-08-07] MEDS: IPRATROPIUM BR 0.02% INH SOLN 0.5 MG/2.5 ML VIAL INHALATION (13:50)
[2022-08-07] MEDS: LEVALBUTEROL NEB 1.25 MG/3 ML INHALATION (13:50)
[2022-08-07] MEDS: predniSONE 40 MG, predniSONE 10 MG 50 MG PO (14:15)
--- NOTE | 2022-08-07 16:17 | ED.SOB ---
HPI - SOB/Dyspnea General Chief Complaint: Shortness of Breath/Dyspnea Stated Complaint: SOB Time Seen by Provider: 08/07/22 13:40 History of Present Illness HPI Narrative: Patient is a 71-year-old female who presents ER with shortness of breath. Reports increased today. Associated with change in mucus over the last couple days. No change in oxygen requirement. Has improved modestly with nebulizer treatment at home. No fevers or chills or sweats. No chest pain or chest pressure. Today when she was at rehabilitation she noticed her oxygen went down to 89% so she thought she come to the ER to get ahead of things. No new weakness or falls. Related Data Home Medications Medication Instructions Recorded Confirmed acetaminophen 650 mg 650 mg PO Q12H 12/27/19 07/10/22 tablet,extended release (Tylenol Arthritis Pain) immune glob G 10 gram/100 100 ml IV WEEKLY 03/17/20 07/10/22 mL(10%)-gly-IgA ave 46 mcg/mL injection soln (Gamunex-C) apixaban 2.5 mg tablet (Eliquis) 2.5 mg PO BID 05/29/22 07/10/22 magnesium oxide 420 mg tablet 420 mg PO DAILY 05/29/22 07/10/22 Allergies Allergy/AdvReac Type Severity Reaction Status Date / Time Penicillins Allergy Unknown Swelling Verified 08/07/22 12:24 Sulfa (Sulfonamide Allergy Unknown Rash Verified 08/07/22 12:24 Antibiotics) Review of Systems Review of Systems: All systems reviewed & are unremarkable except as noted in HPI and below Constitutional: Constitutional: Denies chills, Denies fatigue and Denies fever(s) ENT: Denies nasal congestion and Denies sore throat Cardiovascular: Cardiovascular: Denies chest pain, Denies rapid heart rate and Denies radiating jaw, neck or arm pain Respiratory: Respiratory: Reports cough, Reports dyspnea and Reports wheezing Gastrointestinal: Gastrointestinal: Denies abdominal pain, Denies nausea and Denies vomiting [facility] Past Medical History Medical History Anxiety Arthritis of wrist, right Bilateral primary osteoarthritis of knee BMI 31.0-31.9,adult Chest pain in adult Chronic bronchitis Chronic obstructive pulmonary disease Chronic respiratory failure with hypoxia Depression HORN (dyspnea on exertion) Dyslipidemia Eczema Essential hypertension Fatigue Gastro-esophageal reflux disease without esophagitis GERD (gastroesophageal reflux disease) Headache Hiatal hernia History of home oxygen therapy 2L NC at rest, 4L NC with activity HTN (hypertension) Hyperlipidemia Hypothyroid Hypothyroidism, unspecified Iron deficiency Mixed hyperlipidemia (10/28/18) Obstructive sleep apnea Obstructive sleep apnea (adult) (pediatric) Palpitations with regular cardiac rhythm Pneumonia Postmenopausal Pre-diabetes Pulmonary nodule Restless leg syndrome Seasonal allergies Tachycardia Ulcer Uterine cancer Vitamin D deficiency, unspecified Surgical History Surgical History History of carpal tunnel release History of hysterectomy History of tonsillectomy Family History Family History Mother Family history of chronic obstructive pulmonary disease Hypertension Chronic obstructive pulmonary disease Sibling Family history of malignant neoplasm Asthma Grandparent Acute myocardial infarction Social History Social History Smoking packs per day: 1 Smoking cigarettes per day: 20.0 Years smoked: 40 Smoking pack-years: 40.00 Smoking status: Former smoker Tobacco type: cigarettes Second hand tobacco smoke exposure: Yes Smoking end date: 04/12/08 Alcohol intake: former Substance use: never Substance use type: does not use Lack of Transportation: No Lack of Food: Never True Current Housing: I Have Housing Concerned About Future Housing: No Difficulty Paying Gas/Electri
== END 2022-08-07 17:17 | disposition home or self-care (01) ==
PROVIDERS: Emergency Medicine; Emergency Provider Emergency Medicine; PCP Family Medicine
DX: J44.1 Chronic obstructive pulmonary disease with (acute) exacerbation (principal); E78.5 Hyperlipidemia, unspecified; E03.9 Hypothyroidism, unspecified; I10 Essential (primary) hypertension; Z79.01 Long term (current) use of anticoagulants; Z87.891 Personal history of nicotine dependence
CPT/HCPCS: 36415; 71046; 80053; 85025; 93005; 94640; 99284; J7512

== ENCOUNTER 2022-09-18 07:54 | Outpatient (CLI) | payer MEDICARE, MEDICAID, SELFPAY ==
--- NOTE | ~2022-09-18 | MR_ITS ---
EXAMINATION: MR brain/brain stem wo/w con DATE: 09/18/2022 10:45 INDICATION: Migraine headache. TECHNIQUE: Magnetic resonance imaging (MRI) of the brain and brainstem was performed without and with 13 mL MultiHance intravenous contrast. COMPARISON: Brain MRI 01/26/2016 FINDINGS: There are scattered areas of nonspecific increased T2-weighted signal intensity in the cere bral white matter, which is within normal limits for the patient's age. There is increased T2-weighte d signal intensity in the sukh, worst at the corticospinal tracts. There is no intracranial hemorrhag e, acute infarction, or abnormal intracranial mass lesion. The ventricles are normal in size. There i s mucosal thickening in the paranasal sinuses, worst in right maxillary sinus. The orbits are normal. The mastoid air cells are normal. IMPRESSION: 1. Mild pontine disease, likely chronic small vessel ischemic disease. Reviewed, dictated and finalized at location A.
--- NOTE | ~2022-09-18 | MR_ITS ---
MRA HEAD History: Headache, aneurysm Technique: 3D time of flight MRA of the head is performed. Findings: There is mild motion artifact. The right and left distal vertebral arteries and the basilar and posterior cerebral arteries are patent. Distal right vertebral artery terminates as right PICA, normal variant. Right posterior cerebral artery is predominantly fed via right posterior technique an d artery, normal variant. Right and left distal internal carotid arteries and anterior and middle cer ebral arteries are normal. There is no visible aneurysm, stenosis, or occlusion. Impression: No significant abnormality seen. Please note there is mild motion artifact, which could potentially l imit visualization of a very small aneurysm, especially of the anterior communicating arteries. Reviewed, dictated and finalized at location M. Impression: No significant abnormality seen. Please note there is mild motion artifact, whi ch could potentially limit visualization of a very small aneurysm, especially o f the anterior communicating arteries.
--- NOTE | ~2022-09-18 | CT_ITS ---
EXAMINATION:CT lung screening DATE: 09/18/2022 08:54 INDICATION: Tobacco use. Smoker who quit 14 years ago with 40 pack year history. TECHNIQUE: Computed tomography (CT) of the chest was performed without intravenous contrast. Automate d exposure control and iterative reconstruction technique were employed. The dose-length product (DLP ) was 109.95 mGy-cm. COMPARISON: Chest CT 08/26/2021 FINDINGS: There is severe emphysema. There is mild atelectasis bilaterally. There is a stable 4 mm no dule in right upper lobe. No pleural effusion. The heart size is normal. There are coronary artery ca lcifications. No pericardial effusion. There is a stable mildly enlarged mediastinal lymph node, like ly reactive. Partially visualized is a 2.8 cm cyst in right kidney. There is severe cervical and thor acic spondylosis. IMPRESSION: 1. Lung-RADS category 2: Benign appearance or behavior. Continue annual screening with noncontrast lo w-dose chest CT in 12 months. Reviewed, dictated and finalized at location A. IMPRESSION: 1. Lung-RADS category 2: Benign appearance or behavior. Continue annual screeni ng with noncontrast low-dose chest CT in 12 months.
== END 2022-09-18 07:55 | disposition home or self-care (01) ==
PROVIDERS: PCP Family Medicine; Visit Provider Student in an Organized Health Care Education/Training Program
DX: Z12.2 Encounter for screening for malignant neoplasm of respiratory organs (principal); Z87.891 Personal history of nicotine dependence; R51.9 Headache, unspecified; G93.89 Other specified disorders of brain; I67.1 Cerebral aneurysm, nonruptured
CPT/HCPCS: 70544; 70553; 71271; A9577

== ENCOUNTER 2022-10-14 07:49 | Outpatient (CLI) | payer MEDICARE, MEDICAID, SELFPAY ==
[2022-10-14 08:48] LABS: Hematocrit 42.6 % (37.0-47.0); Hemoglobin 14.3 g/dL (12.0-15.0); Mean Corpuscular HGB Conc 33.6 g/dl (32-36); Mean Corpuscular Hemoglobin 31.6 pg (26-34); Mean Platelet Volume 10.6 fl (7.4-10.4); Platelet Count Result 274 k/mm3 (150-375); Red Blood Count 4.53 M/mm3 (4.2-5.4); Red Cell Distribution Width 13.2 % (11.5-14.5); White Blood Count 5.1 K/mm3 (4.5-10.0)
[2022-10-14 09:00] LABS: Alanine Aminotransferase 23 U/L (6-35); Albumin Level 4.3 g/dL (3.5-5.1); Alkaline Phosphatase 134 U/L (38-126); Anion Gap 8 mmol/L (8-16); Aspartate Amino Transferase 25 U/L (14-36); Bilirubin,Total 0.5 mg/dL (0.2-1.3); Blood Urea Nitrogen 12 mg/dL (7-17); Calcium 8.9 mg/dL (8.4-10.2); Carbon Dioxide 26 mmol/L (22-30); Chloride 108 mmol/L (98-107); Cholesterol 133 mg/dL (0-200); Estimated Glomerular Filt Rate > 60; Glucose 98 mg/dL (65-110); HDL Direct 44 mg/dL; Sodium 142 mmol/L (137-145); Triglycerides 71 mg/dL (<150)
[2022-10-14 09:11] LABS: LDL Cholesterol Direct 64 mg/dL
[2022-10-14 09:25] LABS: Free T4 Free Thyroxine 1.12 ng/mL (0.78-2.19)
[2022-10-14 09:26] LABS: Vitamin D 25 Hydroxy 79.1 ng/mL
[2022-10-16 23:19] LABS: Vitamin D 1,25 (OH)2 Total 69 pg/mL (18-72); Vitamin D2 1,25 (OH)2 24 pg/mL; Vitamin D3 1,25 (OH)2 45 pg/mL
== END 2022-10-14 07:50 | disposition home or self-care (01) ==
PROVIDERS: PCP Family Medicine; Referring Provider Nurse Practitioner; Visit Provider Family Medicine
DX: R53.83 Other fatigue (principal); E78.5 Hyperlipidemia, unspecified; R73.03 Prediabetes; E55.9 Vitamin D deficiency, unspecified; E03.9 Hypothyroidism, unspecified; E61.1 Iron deficiency; E66.3 Overweight
CPT/HCPCS: 36415; 80053; 80061; 82306; 82607; 82652; 83036; 84439; 84443; 85027

== ENCOUNTER 2023-01-25 19:33 | Outpatient (NON) | payer MEDICARE, MEDICAID, SELFPAY | END 2023-01-25 19:34 | disposition home or self-care (01) | LOC: ANHLAB 19:36 | PROVIDERS: PCP Emergency Medicine; Visit Provider Nurse Practitioner | DX: R82.90 Unspecified abnormal findings in urine (principal) | CPT/HCPCS: 87086; 87088 ==

== ENCOUNTER 2023-04-06 16:02 | Emergency (ER) | payer MEDICARE, MEDICAID, SELFPAY ==
--- NOTE | ~2023-04-06 | XR_ITS ---
EXAM: XR knee LT min 4V DATE: 04/06/2023 17:27 HISTORY: fell, pain to left knee generalized . COMPARISON: 07/21/2021. FINDINGS: Normal mineralization. No fracture or dislocation. No lytic or blastic lesion. Moderate tr icompartmental osteoarthritis. No erosion or periosteal change. Soft tissues within normal limits. Mo derate volume joint fluid. IMPRESSION: No acute osseous finding in the left knee . Reviewed, dictated and finalized at location K. 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
[2023-04-06 16:25] VITALS: BP 127/66; PULSE 116; RESP 20; TEMP 36.9; O2SAT 95
--- NOTE | 2023-04-06 17:07 | ED.FALL ---
HPI - Fall General Chief Complaint: Fall Stated Complaint: left side face pain,left knee pain Time Seen by Provider: 04/06/23 17:07 Source: patient Mode of arrival: ambulatory Limitations: no limitations History of Present Illness HPI Narrative: 72-year-old female presents with complaint of left knee pain left facial pain after falling of bed today. Patient reports that she has rolled out of bed several times in the past. States that she does not while sleeping. After rolling out of bed today She ordered herself bed rales. Denies LOC. States the fall woke her up. Hit left side of cheek and fell on to left a. Denies hitting head. No headache or dizziness. Patient does use a walker. History of COPD, on 2 L oxygen at rest, 4 L when ambulatory. All systems reviewed and negative except as noted above. Related Data Home Medications Medication Instructions Recorded Confirmed acetaminophen 650 mg 650 mg PO Q12H 12/27/19 04/06/23 tablet,extended release (Tylenol Arthritis Pain) immune glob G 10 gram/100 100 ml IV WEEKLY 03/17/20 04/06/23 mL(10%)-gly-IgA ave 46 mcg/mL injection soln (Gamunex-C) meloxicam 7.5 mg tablet 7.5 mg PO DAILY 08/31/22 04/06/23 docusate sodium 100 mg capsule 100 mg PO DAILY 11/12/22 04/06/23 (Colace) Allergies Allergy/AdvReac Type Severity Reaction Status Date / Time Penicillins Allergy Unknown Swelling Verified 04/06/23 17:16 Sulfa (Sulfonamide Allergy Unknown Rash Verified 04/06/23 17:16 Antibiotics) Review of Systems Review of Systems: CONSTITUTIONAL: Denies fever, chills, or sweats. EYES: Denies visual changes, redness, or discharge. ENT: Denies rhinorrhea, congestion, sore throat, or otalgia. CARDIOVASCULAR: Denies chest pain, palpitations, or edema. RESPIRATORY: Denies cough or dyspnea. GASTROINTESTINAL: Denies abdominal pain, nausea, vomiting, or diarrhea. GENITOURINARY: Denies dysuria or hematuria. SKIN: Denies rash or itching. MUSCULOSKELETAL: Denies back pain, myalgia. Reports left knee pain and swelling. Reports pain to left cheek bone. NEUROLOGIC: Denies headache, numbness, or weakness. PSYCHIATRIC: Denies anxiety or depression. All other systems reviewed are negative, except as documented in HPI. [facility] Past Medical History Medical History Anxiety Arthritis of wrist, right Bilateral primary osteoarthritis of knee BMI 31.0-31.9,adult Chest pain in adult Chronic bronchitis Chronic obstructive pulmonary disease Chronic respiratory failure with hypoxia Depression HORN (dyspnea on exertion) Dyslipidemia Eczema Essential hypertension Fatigue Gastro-esophageal reflux disease without esophagitis GERD (gastroesophageal reflux disease) Headache Hiatal hernia History of home oxygen therapy 2L NC at rest, 4L NC with activity HTN (hypertension) Hyperlipidemia Hypothyroid Hypothyroidism, unspecified Iron deficiency Mixed hyperlipidemia (10/28/18) Obstructive sleep apnea Obstructive sleep apnea (adult) (pediatric) Palpitations with regular cardiac rhythm Pneumonia Postmenopausal Pre-diabetes Pulmonary nodule Restless leg syndrome Seasonal allergies Tachycardia Ulcer Uterine cancer Vitamin D deficiency, unspecified Surgical History Surgical History History of carpal tunnel release History of hysterectomy History of tonsillectomy Family History Family History Mother Family history of chronic obstructive pulmonary disease Hypertension Chronic obstructive pulmonary disease Sibling Family history of malignant neoplasm Asthma Grandparent Acute myocardial infarction Social History Social History Social History: Caffeine- coffee/soda Smoking packs per day: 1 Smoking cigarettes per day: 20.0 Years smoked: 40
== END 2023-04-06 18:25 | disposition home or self-care (01) ==
PROVIDERS: Emergency Provider Nurse Practitioner Family; PCP Family Medicine
DX: M25.462 Effusion, left knee (principal); R51.9 Headache, unspecified; W06.XXXA Fall from bed, initial encounter; E78.5 Hyperlipidemia, unspecified; I10 Essential (primary) hypertension; E03.9 Hypothyroidism, unspecified; G47.33 Obstructive sleep apnea (adult) (pediatric); E55.9 Vitamin D deficiency, unspecified; Z85.42 Personal history of malignant neoplasm of other parts of uterus; Z87.891 Personal history of nicotine dependence
CPT/HCPCS: 73564; 99213; G0463

== ENCOUNTER 2023-04-17 10:03 | Outpatient (CLI) | payer MEDICARE, OTHER, SELFPAY ==
[2023-04-17 10:56] LABS: Alanine Aminotransferase 20 U/L (6-35); Alkaline Phosphatase 123 U/L (38-126); Anion Gap 9 mmol/L (8-16); Aspartate Amino Transferase 26 U/L (14-36); Bilirubin,Total 0.6 mg/dL (0.2-1.3); Blood Urea Nitrogen 10 mg/dL (7-17); Calcium 8.9 mg/dL (8.4-10.2); Carbon Dioxide 28 mmol/L (22-30); Chloride 106 mmol/L (98-107); Cholesterol 122 mg/dL (0-200); Estimated Glomerular Filt Rate > 60; Glucose 96 mg/dL (65-110); HDL Direct 42 mg/dL; Potassium 4.1 mmol/L (3.4-5.0); Sodium 143 mmol/L (137-145); Triglycerides 85 mg/dL (<150)
[2023-04-17 11:07] LABS: LDL Cholesterol Direct 60 mg/dL
[2023-04-17 11:11] LABS: Vitamin D 25 Hydroxy 75.4 ng/mL
[2023-04-17 11:40] LABS: Hemoglobin A1C 5.6 % (<5.7)
[2023-04-17 12:46] LABS: Hepatitis C Virus Antibody Negative (Negative)
== END 2023-04-17 10:04 | disposition home or self-care (01) ==
PROVIDERS: PCP Family Medicine; Visit Provider Nurse Practitioner
DX: E55.9 Vitamin D deficiency, unspecified (principal); E03.9 Hypothyroidism, unspecified; R73.03 Prediabetes; E78.5 Hyperlipidemia, unspecified; Z11.59 Encounter for screening for other viral diseases
CPT/HCPCS: 36415; 80053; 80061; 82306; 83036; 84443; 86803

== ENCOUNTER 2023-04-17 11:21 | Emergency (ER) | payer MEDICARE, MEDICAID, SELFPAY ==
[2023-04-17 11:27] VITALS: O2SAT 94
[2023-04-17 11:35] VITALS: BP 117/59; PULSE 101; RESP 22; TEMP 37.4; O2SAT 94
[2023-04-17 11:37] VITALS: O2SAT 96
--- NOTE | 2023-04-17 11:41 | ED.SOB ---
HPI - SOB/Dyspnea General Chief Complaint: Shortness of Breath/Dyspnea Stated Complaint: SOB Time Seen by Provider: 04/17/23 11:50 Source: patient and RN notes reviewed Mode of arrival: ambulatory Limitations: no limitations History of Present Illness HPI Narrative: 72-year-old female presents with concern for shortness of breath. She reports history of COPD, uses oxygen at baseline. She reports she used her nebulizer last night. She denies fever, body aches, chills, sweats, runny nose stuffy nose, sore throat. MD elicited complaint: shortness of breath Related Data Home Medications Medication Instructions Recorded Confirmed acetaminophen 650 mg 650 mg PO Q12H 12/27/19 04/17/23 tablet,extended release (Tylenol Arthritis Pain) immune glob G 10 gram/100 100 ml IV WEEKLY 03/17/20 04/17/23 mL(10%)-gly-IgA ave 46 mcg/mL injection soln (Gamunex-C) meloxicam 7.5 mg tablet 7.5 mg PO DAILY 08/31/22 04/17/23 docusate sodium 100 mg capsule 100 mg PO DAILY 11/12/22 04/17/23 (Colace) albuterol sulfate 90 mcg/actuation 1 - 2 puff inhalation Q4-6H 04/17/23 04/17/23 aerosol inhaler Shortness Of Breath levalbuterol HCl 1.25 mg/3 mL 1.25 mg inhalation TID shortness 04/17/23 04/17/23 solution for nebulization of breath or wheezing Allergies Allergy/AdvReac Type Severity Reaction Status Date / Time Penicillins Allergy Unknown Swelling Verified 04/17/23 11:30 Sulfa (Sulfonamide Allergy Unknown Rash Verified 04/17/23 11:30 Antibiotics) Review of Systems Review of Systems: CONSTITUTIONAL: Denies malaise, chills, sweats, or fever. EYES: Denies visual changes, redness, or discharge. ENT: Denies rhinorrhea, congestion, sinus pain, otalgia and sore throat. CARDIOVASCULAR: Denies chest pain, palpitations, or edema. RESPIRATORY: Reports productive cough, dyspnea. GASTROINTESTINAL: Denies abdominal pain, nausea, vomiting, diarrhea SKIN: Denies rash or itching. MUSCULOSKELETAL: Denies myalgia. NEUROLOGIC: Denies headache. All systems reviewed & are unremarkable except as noted in HPI and below PMFSH Past Medical History Medical History Anxiety Arthritis of wrist, right Bilateral primary osteoarthritis of knee BMI 31.0-31.9,adult Chest pain in adult Chronic bronchitis Chronic obstructive pulmonary disease Chronic respiratory failure with hypoxia Depression HORN (dyspnea on exertion) Dyslipidemia Eczema Essential hypertension Fatigue Gastro-esophageal reflux disease without esophagitis GERD (gastroesophageal reflux disease) Headache Hiatal hernia History of home oxygen therapy 2L NC at rest, 4L NC with activity HTN (hypertension) Hyperlipidemia Hypothyroid Hypothyroidism, unspecified Iron deficiency Mixed hyperlipidemia (10/28/18) Obstructive sleep apnea Obstructive sleep apnea (adult) (pediatric) Palpitations with regular cardiac rhythm Pneumonia Postmenopausal Pre-diabetes Pulmonary nodule Restless leg syndrome Seasonal allergies Tachycardia Ulcer Uterine cancer Vitamin D deficiency, unspecified Surgical History Surgical History History of carpal tunnel release History of hysterectomy History of tonsillectomy Family History Family History Mother Family history of chronic obstructive pulmonary disease Hypertension Chronic obstructive pulmonary disease Sibling Family history of malignant neoplasm Asthma Grandparent Acute myocardial infarction Social History Social History Social History: Caffeine- coffee/soda Smoking packs per day: 1 Smoking cigarettes per day: 20.0 Years smoked: 40 Smoking pack-years: 40.00 Smoking status: Former smoker Tobacco type: cigarettes Second hand tobacco smoke exposure: Yes Smoking end date: 04/12/08 Alcohol intake:
[2023-04-17] MEDS: ALBUTEROL SULFATE NEB 2.5 MG/3 ML INH INHALATION (12:00)
[2023-04-17] MEDS: IPRATROPIUM BR 0.02% INH SOLN 0.5 MG/2.5 ML VIAL INHALATION (12:00)
[2023-04-17] MEDS: methylPREDNISolone SOD SUCC 125 MG VIAL IM (12:40)
[2023-04-17 13:01] VITALS: O2SAT 96
== END 2023-04-17 13:01 | disposition home or self-care (01) ==
PROVIDERS: Emergency Provider Nurse Practitioner; PCP Family Medicine
DX: J44.1 Chronic obstructive pulmonary disease with (acute) exacerbation (principal); Z87.891 Personal history of nicotine dependence; I10 Essential (primary) hypertension; K21.9 Gastro-esophageal reflux disease without esophagitis; E03.9 Hypothyroidism, unspecified; E78.2 Mixed hyperlipidemia; R73.03 Prediabetes; G25.81 Restless legs syndrome; E55.9 Vitamin D deficiency, unspecified
CPT/HCPCS: 36415; 80053; 80061; 82306; 83036; 84443; 86803; 94640; 96372; 99213; G0463; J2930

== ENCOUNTER 2023-05-26 18:52 | Emergency (ER) | payer MEDICARE, MEDICAID, SELFPAY ==
[2023-05-26 18:58] VITALS: BP 135/67; PULSE 123; RESP 18; TEMP 36.4; O2SAT 96
[2023-05-26] MEDS: SODIUM CHLORIDE 0.9% IV 1,000 ML 999 ML IV CONT ×3 (19:41→22:00)
[2023-05-26] MEDS: PROCHLORPERAZINE EDISYLATE 10 MG/2 ML VIAL IV PUSH (19:41)
[2023-05-26] MEDS: diphenhydrAMINE HCl INJ 50 MG/ML VIAL 25 MG IV PUSH (19:42)
[2023-05-26] MEDS: IBUPROFEN 400 MG TABLET PO (20:02)
--- NOTE | 2023-05-26 20:02 | ED.HA ---
HPI - Headache General Chief Complaint: Headache Stated Complaint: SOB, migraine x 4 days Time Seen by Provider: 05/26/23 19:27 Source: patient Limitations: no limitations History of Present Illness HPI Narrative: patient is a 72-year-old female presents to the emergency department complaining of a migraine. Patient states she has been experiencing migraine for the past 4 days, admits to history of migraines and this feels similar to, notes it is somewhat bifrontal in location but more so on the right side, slightly goes to the top of her head on the right side, she has been trying Imitrex for it which helps with the headache returns, notes that the headache seems to be coming and going, has no significant headache better or worse. Patient is to history of seeing a neurologist and has an appointment in August. Patient denies any new or change medications. Patient admits to wearing 2 L of oxygen at baseline while at rest and 4 L of oxygen with activity. Patient admits to recent illness with pneumonia which she recovered from approximate 1 week ago. Patient denies in having some her symptoms around her. Patient denies family history of aneurysms. Patient denies a headache the maximal intensity upon onset. Patient admits to associated nausea and photophobia. Patient denies vision changes, difficulty swallowing, numbness, weakness, chest pain, difficulty breathing, abdominal pain, nausea, vomiting, diarrhea, urinary discomfort, rash, sore throat, nasal congestion, neck stiffness. Patient admits to history of head imaging for her migraines in the past. Related Data Home Medications Medication Instructions Recorded Confirmed acetaminophen 650 mg 650 mg PO Q12H 12/27/19 04/19/23 tablet,extended release (Tylenol Arthritis Pain) immune glob G 10 gram/100 100 ml IV WEEKLY 03/17/20 04/19/23 mL(10%)-gly-IgA ave 46 mcg/mL injection soln (Gamunex-C) meloxicam 7.5 mg tablet 7.5 mg PO DAILY 08/31/22 04/19/23 albuterol sulfate 90 mcg/actuation 1 - 2 puff inhalation Q4-6H 04/17/23 04/19/23 aerosol inhaler Shortness Of Breath levalbuterol HCl 1.25 mg/3 mL 1.25 mg inhalation TID shortness 04/17/23 04/19/23 solution for nebulization of breath or wheezing Allergies Allergy/AdvReac Type Severity Reaction Status Date / Time Penicillins Allergy Unknown Swelling Verified 04/19/23 11:41 Sulfa (Sulfonamide Allergy Unknown Rash Verified 04/19/23 11:41 Antibiotics) Review of Systems Review of Systems: A 10 system review of systems was completed on the patient and is negative except for what is stated in the HPI. Nursing and ancillary documentation was reviewed. [facility] Past Medical History Medical History Anxiety Arthritis of wrist, right Bilateral primary osteoarthritis of knee BMI 31.0-31.9,adult Chest pain in adult Chronic bronchitis Chronic obstructive pulmonary disease Chronic respiratory failure with hypoxia Depression HORN (dyspnea on exertion) Dyslipidemia Eczema Essential hypertension Fatigue Gastro-esophageal reflux disease without esophagitis GERD (gastroesophageal reflux disease) Headache Hiatal hernia History of home oxygen therapy 2L NC at rest, 4L NC with activity HTN (hypertension) Hyperlipidemia Hypothyroid Hypothyroidism, unspecified Iron deficiency Mixed hyperlipidemia (10/28/18) Obstructive sleep apnea Obstructive sleep apnea (adult) (pediatric) Palpitations with regular cardiac rhythm Pneumonia Postmenopausal Pre-diabetes Pulmonary nodule Restless leg syndrome Seasonal allergies Tachycardia Ulcer Uterine cancer Vitamin D deficiency, unspecified Surgical History Surgical History History of carpal tunnel release History of hysterectomy History of tonsillectomy Family History Family History Mother Family history of chron
--- NOTE | 2023-05-26 20:06 | ECG_ITS ---
Measurements Intervals [place] Rate: 111 P: 70 [place]: 127 QRS: 115 QRSD: 98 T: 69 QT: 361 QTc: 493 Interpretive Statements SINUS TACHYCARDIA LOW QRS VOLTAGE IN EXTREMITY LEADS [QRS DEFLECTION < 0.5 mV IN LIMB LEADS] BASELINE ARTIFACT LIMITS INTERPRETATION COMPARED TO ECG 08/07/2022 12:34:36 NO SIGNIFICANT CHANGES Electronically Signed On 05-27-2023 12:37:13 ANIMAL STUNNER by Beena Mills M.D.
--- NOTE | 2023-05-26 21:40 | PC.NURSE ---
This RN spoke to Kaycee in the lab regarding blood. Blood was sent to lab around 1999 by KARI Alaniz. Not received or resulted yet.
[2023-05-26 22:07] LABS: Basophils Percent Auto 0.3 % (0.2-1.2); Eosinophils Absolute Auto 0.1 K/mm3 (0-0.3); Eosinophils Percent Auto 1.3 % (0-4.4); Hematocrit 37.6 % (37.0-47.0); Immature Granulocyte Absolute 0.03 K/mm3 (0.00-0.031); Immature Granulocyte Percent A 0.4 % (0-0.5); Lymphocytes Absolute Auto 1.16 K/mm3 (0.9-3.2); Lymphocytes Percent Auto 16.5 % (18.3-44.2); Mean Corpuscular HGB Conc 31.9 g/dl (32-36); Mean Corpuscular Hemoglobin 29.9 pg (26-34); Mean Corpuscular Volume 93.8 fl (80-100); Monocytes Absolute Auto 0.6 K/mm3 (0.1-0.6); Monocytes Percent Auto 8.4 % (2.6-8.5); Neutrophils Absolute Auto 5.1 K/mm3 (1.3-6.7); Neutrophils Percent Auto 73.1 % (45.5-73.1); Platelet Count Result 185 k/mm3 (150-375); Red Blood Count 4.01 M/mm3 (4.2-5.4); Red Cell Distribution Width 14.2 % (11.5-14.5)
[2023-05-26 22:32] LABS: Alanine Aminotransferase 16 U/L (6-35); Albumin Level 3.1 g/dL (3.5-5.1); Alkaline Phosphatase 111 U/L (38-126); Anion Gap 2 mmol/L (8-16); Aspartate Amino Transferase 21 U/L (14-36); Bilirubin,Total 0.4 mg/dL (0.2-1.3); Blood Urea Nitrogen 8 mg/dL (7-17); Calcium 8.5 mg/dL (8.4-10.2); Carbon Dioxide 26 mmol/L (22-30); Chloride 111 mmol/L (98-107); Estimated CRCL calculation 54 ml/min; Estimated Glomerular Filt Rate > 60; Glucose 101 mg/dL (65-110); Magnesium 1.7 mg/dL (1.6-2.3); Potassium 3.8 mmol/L (3.4-5.0); Sodium 139 mmol/L (137-145)
[2023-05-26 23:01] LABS: Influenza A QL RT-PCR Negative (Negative); Influenza B QL RT-PCR Negative (Negative); RSV RNA, RT-PCR Negative (Negative); SARS-CoV-2 RNA PCR Negative (Negative)
[2023-05-26 23:52] VITALS: BP 125/65; PULSE 74; RESP 20; O2SAT 98
== END 2023-05-26 23:55 | disposition home or self-care (01) ==
PROVIDERS: Emergency Provider Student in an Organized Health Care Education/Training Program; PCP Family Medicine
DX: R51.9 Headache, unspecified (principal); Z20.822 Contact with and (suspected) exposure to COVID-19; J44.9 Chronic obstructive pulmonary disease, unspecified; J96.11 Chronic respiratory failure with hypoxia; I10 Essential (primary) hypertension; E78.2 Mixed hyperlipidemia; E55.9 Vitamin D deficiency, unspecified; R73.03 Prediabetes; G47.33 Obstructive sleep apnea (adult) (pediatric); G25.81 Restless legs syndrome; K21.9 Gastro-esophageal reflux disease without esophagitis; M17.0 Bilateral primary osteoarthritis of knee; Z99.81 Dependence on supplemental oxygen; Z87.01 Personal history of pneumonia (recurrent); Z85.42 Personal history of malignant neoplasm of other parts of uterus; Z90.710 Acquired absence of both cervix and uterus; R00.0 Tachycardia, unspecified
CPT/HCPCS: 36415; 80053; 83735; 85025; 87637; 93005; 96361; 96374; 96375; 99284; A9270; J0780; J1200; J7030

== ENCOUNTER 2023-06-07 15:50 | Outpatient (CLI) | payer MEDICARE, MEDICAID, SELFPAY ==
--- NOTE | ~2023-06-07 | XR_ITS ---
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 RECENT PENUMONIA. HX COPD,WEARS HOME O2 Comparison: 08/07/2022; CT lung screening 09/18/2022. RESULT: Lines, tubes, and devices: None. Lungs and pleura: Emphysematous change. Bibasilar reticular opacities. No focal consolidation, pleur al effusion, or pneumothorax. Cardiomediastinal silhouette: Stable. Other: No acute osseous or upper abdominal finding. IMPRESSION: Emphysema. Bilateral lower lung opacities may represent mild interstitial disease versus respiratory bronchiolitis. Reviewed, dictated and finalized at location K. AL ORGANIZATION PROFESSOR IMPRESSION: Emphysema. Bilateral lower lung opacities may represent mild interstitial disea se versus respiratory bronchiolitis.
== END 2023-06-07 15:51 | disposition home or self-care (01) ==
PROVIDERS: PCP Family Medicine; Visit Provider Nurse Practitioner
DX: R06.02 Shortness of breath (principal); J43.9 Emphysema, unspecified
CPT/HCPCS: 71046

== ENCOUNTER 2023-08-02 07:26 | Outpatient (CLI) | payer MEDICARE, MEDICAID, SELFPAY ==
--- NOTE | ~2023-08-02 | CT_ITS ---
EXAMINATION:CT diagnostic chest w con DATE: 08/02/2023 08:17 INDICATION: Localized enlarged lymph nodes. TECHNIQUE: Computed tomography (CT) of the chest was performed without intravenous contrast. Automate d exposure control and iterative reconstruction technique were employed. The dose-length product (DLP ) was 254.83 mGy-cm. COMPARISON: Chest CT 09/18/2022, 05/01/2023 FINDINGS: There is severe emphysema. There is mild atelectasis bilaterally. No pleural effusion. The heart size is normal. No pericardial effusion. There is a 4.3 cm cyst in right kidney. There is a mil dly enlarged left paratracheal lymph node, stable from 09/18/2022, likely benign. There is severe cervi deb spondylosis and mild thoracic spondylosis. IMPRESSION: 1. Chronic mildly enlarged mediastinal lymph node, likely benign. 2. Severe emphysema. Reviewed, dictated and finalized at location E.
[2023-08-02 08:12] LABS: Estimated Glomerular Filt Rate > 60
== END 2023-08-02 07:27 | disposition home or self-care (01) ==
PROVIDERS: PCP Family Medicine; Visit Provider Nurse Practitioner Family
DX: R59.0 Localized enlarged lymph nodes (principal); J98.19 Other pulmonary collapse; J43.9 Emphysema, unspecified
CPT/HCPCS: 71260; Q9967

== ENCOUNTER 2023-08-21 08:35 | Outpatient (CLI) | payer MEDICARE, MEDICAID, SELFPAY ==
[2023-08-21 09:24] LABS: Alanine Aminotransferase 18 U/L (6-35); Alkaline Phosphatase 116 U/L (38-126); Anion Gap 5 mmol/L (4-12); Aspartate Amino Transferase 23 U/L (14-36); Bilirubin,Total 0.4 mg/dL (0.2-1.3); Blood Urea Nitrogen 9 mg/dL (7-17); Carbon Dioxide 31 mmol/L (22-30); Chloride 107 mmol/L (98-107); Cholesterol 108 mg/dL (0-200); Estimated Glomerular Filt Rate > 60; Glucose 95 mg/dL (65-110); HDL Direct 42 mg/dL; Potassium 3.8 mmol/L (3.4-5.0); Sodium 143 mmol/L (137-145); Triglycerides 72 mg/dL (<150)
[2023-08-21 09:35] LABS: LDL Cholesterol Direct 63 mg/dL
[2023-08-21 09:53] LABS: Vitamin D 25 Hydroxy 69.3 ng/mL
[2023-08-21 09:57] LABS: Hemoglobin A1C 5.1 % (<5.7)
== END 2023-08-21 08:36 | disposition home or self-care (01) ==
LOC: ANHLAB 08:38
PROVIDERS: PCP Family Medicine; Visit Provider Nurse Practitioner
DX: E55.9 Vitamin D deficiency, unspecified (principal); E03.9 Hypothyroidism, unspecified; E78.5 Hyperlipidemia, unspecified; R73.03 Prediabetes; E87.6 Hypokalemia
CPT/HCPCS: 36415; 80053; 80061; 82306; 83036; 84443

== ENCOUNTER 2023-10-19 02:00 | Day surgery (SDC) | payer MEDICARE, MEDICAID, SELFPAY ==
[2023-10-01 12:36] VITALS: BMI 28.2
[2023-10-19 14:05] VITALS: BP 122/82; PULSE 102; RESP 20; TEMP 36.4; O2SAT 98; BMI 27.3
[2023-10-19] MEDS: LACTATED RINGERS 1,000 ML 150 ML IV CONT (14:28)
--- NOTE | 2023-10-19 14:28 | WPDANESEPPF ---
Anes - Initial Pre Proc Eval Procedure: Operation Date: 10/19/23 15:30 Proposed Procedures p Esophagogastroduodenoscopy & Colonoscopy - Paul Anderson MD Date/Time: 10/19/23 14:28 Surgeon: Paul Anderson MD Pre Op Diagnosis: Dysphagia, Nausea, Diarrhea Patient Data Age: 72 Gender: F Height: 1.52 m Weight: 63.4 kg Last Vital Signs Temp 97.5 F L 10/19/23 14:05 Pulse 102 H 10/19/23 14:05 Resp 20 10/19/23 14:05 BP 122/82 10/19/23 14:05 Pulse Ox 98 10/19/23 14:05 O2 Del Method Nasal Cannula 10/19/23 14:05 O2 Flow Rate 2 10/19/23 14:05 Allergies Allergy/AdvReac Type Severity Reaction Status Date / Time Penicillins Allergy Unknown Swelling Verified 10/19/23 14:10 Sulfa (Sulfonamide Allergy Unknown Rash Verified 10/19/23 14:10 Antibiotics) Home Medications Medication Instructions Recorded Confirmed Type immune glob G 10 gram/100 100 ml IV WEEKLY 03/17/20 10/19/23 History mL(10%)-gly-IgA ave 46 mcg/mL injection soln (Gamunex-C) sumatriptan succinate 50 mg tablet See Rx Instructions PO .COMPLEX 06/16/22 10/19/23 Rx #20 tabs tiotropium bromide 18 mcg capsule 1 cap inhalation DAILY 90 days #90 07/10/22 10/19/23 Rx with inhalation device (Spiriva caps with HandiHaler) acetaminophen 650 mg 650 mg PO Q12H PRN Pain 06/07/23 10/19/23 History tablet,extended release (Tylenol Arthritis Pain) albuterol sulfate 90 mcg/actuation 1 - 2 puff inhalation Q4-6H PRN 06/07/23 10/19/23 History aerosol inhaler Shortness Of Breath valacyclovir 500 mg tablet 500 mg PO DAILY #90 tabs 06/11/23 10/19/23 Rx roflumilast 500 mcg tablet 500 mcg PO DAILY 90 days #90 tabs 06/29/23 10/19/23 Rx (Daliresp) diltiazem HCl 120 mg See Rx Instructions .Route 07/05/23 10/19/23 Rx capsule,extended release 24 hr .COMPLEX #90 caps ferrous sulfate 325 mg (65 mg See Rx Instructions .Route 07/05/23 10/19/23 Rx iron) tablet .COMPLEX #90 tabs fluticasone 250 mcg-salmeterol 50 1 inh inhalation Q12H 90 days #180 07/05/23 10/19/23 Rx mcg/dose blistr powdr for ea inhalation (Wixela Inhub) lisinopril 10 mg tablet 10 mg PO DAILY #90 tabs 07/05/23 10/19/23 Rx omeprazole 40 mg capsule,delayed See Rx Instructions .Route 07/05/23 10/19/23 Rx release .COMPLEX #90 caps venlafaxine 150 mg See Rx Instructions .Route 07/05/23 10/19/23 Rx capsule,extended release 24 hr .COMPLEX #90 caps atorvastatin 40 mg tablet 40 mg PO DAILY #90 tabs 08/09/23 10/19/23 Rx cetirizine 10 mg tablet 10 mg PO DAILY allergy symptoms 08/09/23 10/19/23 Rx #90 tabs ergocalciferol (vitamin D2) 1,250 1,250 mcg PO WEEKLY #12 caps 08/09/23 10/19/23 Rx mcg (50,000 unit) capsule levothyroxine 88 mcg tablet 88 mcg PO DAILY #90 tabs 08/09/23 10/19/23 Rx montelukast 10 mg tablet 10 mg PO DAILY #90 tabs 08/09/23 10/19/23 Rx buspirone 15 mg tablet See Rx Instructions .Route 08/11/23 10/19/23 Rx .COMPLEX #180 tabs ubrogepant 100 mg tablet (Ubrelvy) 100 mg PO ONCE PRN migraine 08/20/23 10/19/23 Rx headache #14 tabs ondansetron 4 mg disintegrating 4 mg PO Q8H PRN nausea and 08/23/23 10/19/23 Rx tablet vomiting #60 tabs potassium chloride 20 mEq 20 meq PO DAILY #90 tabs 08/23/23 10/19/23 Rx tablet,extended release ropinirole 1 mg tablet See Rx Instructions .Route 08/24/23 10/19/23 Rx .COMPLEX #90 tabs topiramate 25 mg sprinkle capsule See Rx Instructions .Route 08/24/23 10/19/23 Rx .COMPLEX #180 caps levalbuterol HCl 1.25 mg/3 mL See Rx Instructions .Route 09/07/23 10/19/23 Rx solution for nebulization .COMPLEX #270 mL Patient hx anesthesia problems: none Family hx anesthesia problems: none Results Review: All pre-operative results and documents have been reviewed as part of the pre-operative evaluation. [facility] Past Medical History Medical History Anxiety Arthritis of wrist, right Bilateral primary osteoarthritis of kn
--- NOTE | 2023-10-19 15:07 | PM.HPGS ---
History of Present Illness History of Present Illness Consent: Risks, benefits, and alternatives have been discussed and questions answered. Patient agrees to proceed with procedure. Chief complaint: Dysphagia, Nausea, Diarrhea Narrative: Dayanara Malcolm is a 72 year old female with gerd and dysphagia on omeprazole, never had egd. Also alternating constipation diarrhea, last colonoscopy 2006 Review of Systems Review of Systems: All systems reviewed & are unremarkable except as noted in HPI and below PMFSH Past Medical History Medical History (Updated 10/19/23 @ 15:08 by Paul Anderson MD) Alternating constipation and diarrhea Anxiety Arthritis of wrist, right Bilateral primary osteoarthritis of knee BMI 31.0-31.9,adult Chest pain in adult Chronic bronchitis Chronic obstructive pulmonary disease Chronic respiratory failure with hypoxia Depression HORN (dyspnea on exertion) Dyslipidemia Eczema Essential hypertension Fatigue Gastro-esophageal reflux disease without esophagitis GERD (gastroesophageal reflux disease) Headache Hiatal hernia History of home oxygen therapy 2L NC at rest, 4L NC with activity HTN (hypertension) Hyperlipidemia Hypothyroid Hypothyroidism, unspecified Iron deficiency Mixed hyperlipidemia (10/28/18) Obstructive sleep apnea Obstructive sleep apnea (adult) (pediatric) Palpitations with regular cardiac rhythm Pneumonia Postmenopausal Pre-diabetes Pulmonary nodule Restless leg syndrome Seasonal allergies Tachycardia Ulcer Uterine cancer Vitamin D deficiency, unspecified Surgical History Surgical History History of carpal tunnel release History of hysterectomy History of tonsillectomy Family History Family History Mother Family history of chronic obstructive pulmonary disease Hypertension Chronic obstructive pulmonary disease Sibling Family history of malignant neoplasm Asthma Grandparent Acute myocardial infarction Social History Social History Social History: Caffeine- coffee/soda Smoking packs per day: 1 Smoking cigarettes per day: 20.0 Years smoked: 40 Smoking pack-years: 40.00 Smoking status: Former smoker Tobacco type: cigarettes Second hand tobacco smoke exposure: Yes Smoking end date: 04/12/08 Alcohol intake: former Substance use: never Substance use type: does not use Do You Feel Safe in your Home?: Yes Lack of Transportation: No Lack of Food: Never True Current Housing: I Have Housing Concerned About Future Housing: No Difficulty Paying Gas/Electric Bills: No Difficulty Paying for Meds: No Currently Unemployed: No Education: High School Diploma/GED Difficulty w/ Childcare or Family Care: No Living arrangements: alone Occupation/Education: occupation 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 Gender identity (if verbalized by the patient): Female Spiritual care concerns: No Agree to blood products: No Meds Home Medications and Allergies Home Medications Medication Instructions Recorded Confirmed Type immune glob G 10 gram/100 100 ml IV WEEKLY 03/17/20 10/19/23 History mL(10%)-gly-IgA ave 46 mcg/mL injection soln (Gamunex-C) sumatriptan succinate 50 mg tablet See Rx Instructions PO .COMPLEX 06/16/22 10/19/23 Rx #20 tabs tiotropium bromide 18 mcg capsule 1 cap inhalation DAILY 90 days #90 07/10/22 10/19/23 Rx with inhalation device (Spiriva caps with HandiHaler) acetaminophen 650 mg 650 mg PO Q12H PRN Pain 06/07/23 10/19/23 History tablet,extended release (Tylenol Arthritis Pain) albuterol sulfate 90 mcg/actuation 1 - 2 puff inhalation Q4-6H PRN 06/07/23 10/19/23 History aerosol inhaler Shortness Of Breath valacyclovir 500 mg tablet 500 mg PO DAILY #90 tabs 06/11/23 10/19/23
--- NOTE | 2023-10-19 15:30 | SUR.OPER ---
EGD ended 1524 and colonoscopy started 1527
[2023-10-19 15:50] VITALS: BP 137/78; PULSE 85; RESP 29; O2SAT 100
[2023-10-19 16:00] VITALS: BP 143/86; PULSE 82; RESP 26; O2SAT 100
[2023-10-19 16:10] VITALS: BP 127/77; PULSE 80; RESP 18; O2SAT 98
== END 2023-10-19 16:30 | disposition home or self-care (01) ==
PROVIDERS: PCP Nurse Practitioner; Visit Provider Internal Medicine Gastroenterology
PROC: 0DJ08ZZ Inspection of Upper Intestinal Tract, Via Natural or Artificial Opening Endoscopic (ICD-10-PCS; CPT 43235; principal; 2023-10-19 15:30)
DX: Z12.11 Encounter for screening for malignant neoplasm of colon (principal); D12.4 Benign neoplasm of descending colon; D12.3 Benign neoplasm of transverse colon; R13.10 Dysphagia, unspecified; R11.0 Nausea; R19.7 Diarrhea, unspecified; K59.00 Constipation, unspecified; K64.8 Other hemorrhoids; R14.0 Abdominal distension (gaseous); K20.90 Esophagitis, unspecified without bleeding; I10 Essential (primary) hypertension; K21.9 Gastro-esophageal reflux disease without esophagitis; E03.9 Hypothyroidism, unspecified; E78.5 Hyperlipidemia, unspecified; J44.9 Chronic obstructive pulmonary disease, unspecified; E55.9 Vitamin D deficiency, unspecified; Z85.42 Personal history of malignant neoplasm of other parts of uterus; G47.33 Obstructive sleep apnea (adult) (pediatric); Z99.81 Dependence on supplemental oxygen; Z87.891 Personal history of nicotine dependence
CPT/HCPCS: 43239; 43450; 45385; 88305; J2001; J2704; J7120

== ENCOUNTER 2023-10-22 11:03 | Outpatient (CLI) | payer MEDICARE, MEDICAID, SELFPAY ==
--- NOTE | ~2023-10-22 | MM_ITS ---
EXAMINATION: MM screening jocelyn BI w jerson HISTORY: Screening TECHNIQUE: Craniocaudal and mediolateral oblique 3-D tomosynthesis images were obtained and synthetic 2-D images were generated. CAD analysis was submitted and interpreted. COMPARISON: Comparison to multiple prior studies sequentially, with oldest reviewed study dated 11/28. BREAST PARENCHYMAL COMPOSITION: Not dense: There are scattered areas of fibroglandular density. FINDINGS: There is no evidence of suspicious mass, calcification, or architectural distortion to sugg est malignancy in either breast. There has been no suspicious interval change. IMPRESSION: 1. No mammographic evidence of malignancy. 2. Recommend routine screening mammography in one year. BI-RADS Category 1: Negative Reviewed, dictated and finalized at location B.
--- NOTE | ~2023-10-22 | DEXA_ITS ---
Bone Density Report Name: AYDIN JOSE Age: 72 Sex: Female Ethnicity: White Date of : 1950 Indication: postmenopausal; screening for osteoporosis; height loss; prior fracture; asthma or emphysema; hysterectomy; Referring Provider: SEAN MCGEE Study: Bone densitometry was performed. Exam Date: October 22, 2023 Accession number: [id number] Bone Density: Region BMD T-score Z-score Classification AP Spine(L1-L4) 0.878 -1.5 0.6 Osteopenia Femoral Neck (Left) 0.612 -2.1 -0.3 Osteopenia Total Hip (Left) 0.755 -1.5 0.0 Osteopenia World Health Organization criteria for BMD impression classify patients as: Normal (T-score at or above -1.0), Osteopenia (T-score between -1.0 and -2.5), or Osteoporosis (T-score at or below -2.5). 10-year Fracture Risk: FRAX not reported because: Prior hip or vertebral fracture Clinical Information Provided by Patient: Have had a previous hip or vertebral fracture Has had a low trauma fracture Has used the following medications: Vitamin D, Calcium Has the following medical conditions: Asthma or Emphysema, Hysterectomy Patient maximum height was 60 Menopause Age: 26 No regular weight bearing exercise Drinks caffeinated beverages Onset of menses at age 15 Number of children 1 Missed period for more than 6 months in a row Impression: The patient has low bone mass, based on the Left Femoral Neck T-score. The patient has risk factors, including: previous fracture. Discussion: INCREASED RISK OF FRACTURE DUE TO HISTORY OF FRACTURE. The patient's previous fracture puts the patient at high risk of a future fracture. In untreated patients, the risk of osteoporotic fracture increases approximately two-fold for each 1.0 SD decrease in T-score. Low bone density is not the only risk factor for fracture; also consider factors such as patient's age, frailty or poor health, risk of falling, risk of injury, previous osteoporotic fracture, family history of osteoporosis, cigarette smoking, low body weight, etc. Not everyone with a low trauma fracture has osteoporosis; osteomalacia and other metabolic bone disorders should also be considered. Patients who have osteoporosis should be evaluated for specific diseases and conditions (secondary causes) that may cause or contribute to bone loss and fracture risk. National Osteoporosis Foundation (NOF) recommends pharmacologic intervention for patients with a prior hip or vertebral fracture regardless of BMD T-score. The patient should follow a healthful lifestyle (good nutrition with adequate calcium and vitamin D, and appropriate weight-bearing exercise). Follow-Up: Consider a repeat BMD and Vertebral Fracture Assessment (VFA) exam in 2 years or sooner if medically necessary, to reassess this patient's status. Reported by: DONNA on 10/22/2023 11:32:00 AM.
== END 2023-10-22 11:04 | disposition home or self-care (01) ==
LOC: ANHIMG 11:03
PROVIDERS: PCP Nurse Practitioner; Visit Provider Nurse Practitioner
DX: Z12.31 Encounter for screening mammogram for malignant neoplasm of breast (principal); Z78.0 Asymptomatic menopausal state; M85.852 Other specified disorders of bone density and structure, left thigh; M85.88 Other specified disorders of bone density and structure, other site
CPT/HCPCS: 77063; 77067; 77080

== ENCOUNTER 2023-11-15 15:03 | Emergency (ER) | payer MEDICARE, MEDICAID, SELFPAY ==
--- NOTE | ~2023-11-15 | XR_ITS ---
EXAMINATION: XR knee LT min 4V DATE: 11/15/2023 15:43 INDICATION: Left knee injury. Fall. TECHNIQUE: 4 views of left knee were obtained. COMPARISON: Left knee radiographs 04/06/2023 FINDINGS: Bone alignment is normal. No acute fracture. There is severe osteoarthritis of lateral comp artment and mild osteoarthritis of medial and patellofemoral compartments. No knee joint effusion. IMPRESSION: 1. Severe left knee osteoarthritis. Reviewed, dictated and finalized at location A.
--- NOTE | ~2023-11-15 | XR_ITS ---
EXAMINATION: XR hip RT min 2V DATE: 11/15/2023 15:43 INDICATION: Right hip injury. Fall. TECHNIQUE: 2 views of right hip were obtained. COMPARISON: Pelvis radiograph 08/31/2012 FINDINGS: There is a total right hip arthroplasty in near-anatomic alignment. Partially visualized is an old healed fracture of femoral diaphysis. There is internal fixation of the right acetabulum with 2 lag screws. No acute fracture. No periprosthetic lucency to suggest loosening or infection. IMPRESSION: 1. Total right hip arthroplasty in near-anatomic alignment. Reviewed, dictated and finalized at location A.
[2023-11-15 15:19] VITALS: BP 116/84; PULSE 103; RESP 16; TEMP 36.6; O2SAT 100
--- NOTE | 2023-11-15 15:51 | ED.GENADULT ---
HPI - General Adult General Chief complaint: Fall Stated complaint: FALL Time Seen by Provider: 11/15/23 15:52 Source: patient, RN notes reviewed and old records reviewed Mode of arrival: ambulatory Limitations: no limitations History of Present Illness HPI narrative: 72-year-old female presents to the [facility] after tripping over her oxygen tubing on the 10 of November at a hotel room. Presents with left knee discomfort, swelling. Patient also concerned of previous right hip replacement. Wanted an x-ray to make sure it is not affected. Has been able to walk without issue. Just states the left knee is becoming more uncomfortable and keeps falling. Onset (ago): day(s) (4) Related Data Home Medications Medication Instructions Recorded Confirmed immune glob G 10 gram/100 100 ml IV WEEKLY 03/17/20 10/19/23 mL(10%)-gly-IgA ave 46 mcg/mL injection soln (Gamunex-C) acetaminophen 650 mg 650 mg PO Q12H PRN Pain 06/07/23 10/19/23 tablet,extended release (Tylenol Arthritis Pain) albuterol sulfate 90 mcg/actuation 1 - 2 puff inhalation Q4-6H PRN 06/07/23 10/19/23 aerosol inhaler Shortness Of Breath Allergies Allergy/AdvReac Type Severity Reaction Status Date / Time Penicillins Allergy Unknown Swelling Verified 11/15/23 13:20 Sulfa (Sulfonamide Allergy Unknown Rash Verified 11/15/23 13:20 Antibiotics) Review of Systems Review of Systems: All systems reviewed & are unremarkable except as noted in HPI and below Constitutional: Constitutional: Reports no additional constitutional complaints Eyes: Eyes: Reports no additional eye complaints ENT: Reports system reviewed and no additional complaints, except as documented Cardiovascular: Cardiovascular: Reports no additional cardiovascular complaints, Denies chest pain and Denies dyspnea Respiratory: Respiratory: Reports no additional respiratory complaints, Denies chest congestion, Denies cough and Denies dyspnea Gastrointestinal: Gastrointestinal: Reports no additional gastrointestinal complaints, Denies abdominal pain, Denies nausea and Denies vomiting Musculoskeletal: Musculoskeletal: Reports as per HPI Integumentary/Breasts: Skin/Breast: Reports system reviewed and no additional complaints, except as docu Neurologic: Reports system reviewed and no additional complaints, except as documented Psychiatric: Psychiatric: Reports no additional psychiatric complaints Allergic/Immunologic: Allergic/Immunologic: Reports no additional allergic/immunologic complaints PMFSH Past Medical History Medical History Alternating constipation and diarrhea Anxiety Arthritis of wrist, right Bilateral primary osteoarthritis of knee BMI 31.0-31.9,adult Chest pain in adult Chronic bronchitis Chronic obstructive pulmonary disease Chronic respiratory failure with hypoxia Depression HORN (dyspnea on exertion) Dyslipidemia Eczema Essential hypertension Fatigue Gastro-esophageal reflux disease without esophagitis GERD (gastroesophageal reflux disease) Headache Hiatal hernia History of home oxygen therapy 2L NC at rest, 4L NC with activity HTN (hypertension) Hyperlipidemia Hypothyroid Hypothyroidism, unspecified Iron deficiency Mixed hyperlipidemia (10/28/18) Obstructive sleep apnea Obstructive sleep apnea (adult) (pediatric) Palpitations with regular cardiac rhythm Pneumonia Postmenopausal Pre-diabetes Pulmonary nodule Restless leg syndrome Seasonal allergies Tachycardia Ulcer Uterine cancer Vitamin D deficiency, unspecified Surgical History Surgical History History of carpal tunnel release History of hysterectomy History of tonsillectomy Family History Family History Mother Family history of chronic obstructive pulmonary disease Hypertension Chronic obstructive pulmonary disease
== END 2023-11-15 16:07 | disposition home or self-care (01) ==
PROVIDERS: Emergency Provider Nurse Practitioner; PCP Nurse Practitioner
DX: M17.12 Unilateral primary osteoarthritis, left knee (principal); M25.551 Pain in right hip; W18.09XA Striking against other object with subsequent fall, initial encounter; Z96.641 Presence of right artificial hip joint; Z87.891 Personal history of nicotine dependence; J44.9 Chronic obstructive pulmonary disease, unspecified; I10 Essential (primary) hypertension; K21.9 Gastro-esophageal reflux disease without esophagitis; E03.9 Hypothyroidism, unspecified; E78.2 Mixed hyperlipidemia; R73.03 Prediabetes; G25.81 Restless legs syndrome; Z99.81 Dependence on supplemental oxygen; Z85.42 Personal history of malignant neoplasm of other parts of uterus
CPT/HCPCS: 73502; 73564; 99214; G0463

== ENCOUNTER 2024-02-12 08:51 | Outpatient (CLI) | payer MEDICARE, MEDICAID, SELFPAY ==
[2024-02-12 09:41] LABS: Alanine Aminotransferase 17 U/L (6-35); Albumin Level 4.1 g/dL (3.5-5.1); Alkaline Phosphatase 96 U/L (38-126); Anion Gap 8 mmol/L (4-12); Aspartate Amino Transferase 22 U/L (14-36); Bilirubin,Total 0.4 mg/dL (0.2-1.3); Blood Urea Nitrogen 10 mg/dL (7-17); Calcium 8.9 mg/dL (8.4-10.2); Carbon Dioxide 30 mmol/L (22-30); Chloride 105 mmol/L (98-107); Cholesterol 123 mg/dL (0-200); Estimated Glomerular Filt Rate > 60; Glucose 93 mg/dL (65-110); HDL Direct 34 mg/dL; Potassium 3.9 mmol/L (3.4-5.0); Sodium 143 mmol/L (137-145); Triglycerides 99 mg/dL (<150)
[2024-02-12 09:52] LABS: LDL Cholesterol Direct 53 mg/dL
[2024-02-12 10:20] LABS: Free T4 Free Thyroxine 1.26 ng/mL (0.78-2.19)
[2024-02-12 11:14] LABS: Hemoglobin A1C 5.5 % (<5.7)
[2024-02-12 11:40] LABS: Vitamin D 25 Hydroxy 83.3 ng/mL
== END 2024-02-12 08:52 | disposition home or self-care (01) ==
PROVIDERS: PCP Nurse Practitioner; Visit Provider Nurse Practitioner
DX: E55.9 Vitamin D deficiency, unspecified (principal); E03.9 Hypothyroidism, unspecified; E78.5 Hyperlipidemia, unspecified; R73.03 Prediabetes
CPT/HCPCS: 36415; 80053; 80061; 82306; 83036; 84439; 84443

== ENCOUNTER 2024-03-19 12:27 | Observation (INO) | payer MEDICARE, MEDICAID, SELFPAY ==
[2024-03-19] VITALS (8 sets, daily range): BP systolic 101–123; BP diastolic 69–91; PULSE 86–108; RESP 18–24; TEMP 36.7; O2SAT 94–100; BMI 26.9
--- NOTE | ~2024-03-19 | XR_ITS ---
EXAMINATION: XR chest 2V DATE: 03/19/2024 12:57 INDICATION: Shortness of breath. TECHNIQUE: Frontal and lateral views of the chest were obtained. COMPARISON: Chest 2 views 06/07/2023, chest CT 08/02/2023 FINDINGS: There are lucencies in the lungs, consistent with emphysema. There are airspace opacities i n the lower lung zones. No pleural effusion or pneumothorax. The heart size is normal. IMPRESSION: 1. Airspace opacities in the lower lung zones, consistent with atelectasis versus pneumonia. 2. Emphysema. Reviewed, dictated and finalized at location A. R [employer]ER AND PICKER IMPRESSION: 1. Airspace opacities in the lower lung zones, consistent with atelectasis vers us pneumonia. 2. Emphysema.
--- NOTE | 2024-03-19 12:29 | ECG_ITS ---
Test Date: 2024-03-19 12:35:44 Measurements Intervals Brinson Rate: 100 P: 74 IN: 149 QRS: 104 QRSD: 88 T: 72 QT: 359 QTc: 464 Interpretive Statements SINUS TACHYCARDIA INDETERMINATE AXIS LOW QRS VOLTAGE IN PRECORDIAL LEADS [QRS DEFLECTION < 1.0 mV IN CHEST LEADS] MODERATE T-WAVE ABNORMALITY, CONSIDER ANTERIOR ISCHEMIA [-0.1+ mV T WAVE IN V3/V4] No previous ECG available for comparison Electronically Signed On 03-19-2024 15:04:51 TACK PULLER by Trevin Mchugh M.D.
[2024-03-19 12:48] LABS: Basophils Percent Auto 0.4 % (0.2-1.2); Eosinophils Absolute Auto 0.2 K/mm3 (0-0.3); Hemoglobin 14.6 g/dL (12.0-15.0); Immature Granulocyte Absolute 0.03 K/mm3 (0.00-0.031); Immature Granulocyte Percent A 0.4 % (0-0.5); Lymphocytes Absolute Auto 0.91 K/mm3 (0.9-3.2); Lymphocytes Percent Auto 12.4 % (18.3-44.2); Mean Corpuscular Hemoglobin 31.6 pg (26-34); Mean Corpuscular Volume 93.1 fl (80-100); Mean Platelet Volume 10.2 fl (7.4-10.4); Monocytes Absolute Auto 0.6 K/mm3 (0.1-0.6); Monocytes Percent Auto 7.5 % (2.6-8.5); Neutrophils Absolute Auto 5.7 K/mm3 (1.3-6.7); Neutrophils Percent Auto 77.3 % (45.5-73.1); Platelet Count Result 188 k/mm3 (150-375); Red Blood Count 4.62 M/mm3 (4.2-5.4); Red Cell Distribution Width 12.6 % (11.5-14.5); White Blood Count 7.3 K/mm3 (4.5-10.0)
[2024-03-19 12:57] LABS: Alanine Aminotransferase 18 U/L (6-35); Albumin Level 4.1 g/dL (3.5-5.1); Alkaline Phosphatase 119 U/L (38-126); Anion Gap 6 mmol/L (4-12); Aspartate Amino Transferase 23 U/L (14-36); Bilirubin,Total 0.7 mg/dL (0.2-1.3); Blood Urea Nitrogen 9 mg/dL (7-17); Calcium 8.8 mg/dL (8.4-10.2); Carbon Dioxide 25 mmol/L (22-30); Chloride 110 mmol/L (98-107); Estimated Glomerular Filt Rate > 60; Glucose 123 mg/dL (65-110); Potassium 3.5 mmol/L (3.4-5.0); Sodium 141 mmol/L (137-145)
[2024-03-19 13:25] LABS: Influenza A QL RT-PCR Negative (Negative); Influenza B QL RT-PCR Negative (Negative); RSV RNA, RT-PCR Negative (Negative); SARS-CoV-2 RNA PCR Negative (Negative)
--- NOTE | 2024-03-19 15:52 | ED_ITS ---
HPI - SOB/Dyspnea General Chief Complaint: Shortness of Breath/Dyspnea Stated Complaint: sob, cough Time Seen by Provider: 03/19/24 15:33 Source: patient Mode of arrival: ambulatory Limitations: no limitations History of Present Illness HPI Narrative: 73 YEARS OLD WHITE FEMALE CAME TO THE ED BY PRIVATE CAR FROM HOME COMPLAINING OF WORSENING OF SHORTNESS OF BREATH OVER THE LAST FEW DAYS, GOT WORSE LAST NIGHT. PATIENT REPORT MORE FREQUENT COUGHING, THE VOLUME OF SPUTUM PRODUCTION IS WORSE THAN BEFORE. SHE BEEN FEELING HOT AND COLD, WITH INTERMITTENT CHILLS. PATIENT ON OXYGEN BY NASAL CANNULA 2 L AT REST, 4 L WITH ACTIVITY HISTORY OF COPD, HYPERTENSION, HYPERLIPIDEMIA, HYPOTHYROIDISM. PATIENT STOP SMOKING 2008. PATIENT DOES NOT TAKE ANTI-PLATELET OR ANTICOAGULANT MEDICATION Related Data Home Medications Medication Instructions Recorded Confirmed immune glob G 10 gram/100 100 ml subcut WEEKLY 03/17/20 03/19/24 mL(10%)-gly-IgA ave 46 mcg/mL injection soln (Gamunex-C) acetaminophen 650 mg 650 mg PO Q12H PRN Pain (Scale 06/07/23 03/19/24 tablet,extended release (Tylenol Score 1-3) Arthritis Pain) albuterol sulfate 90 mcg/actuation 1 - 2 puff inhalation Q4-6H PRN 06/07/23 03/19/24 aerosol inhaler Shortness Of Breath buspirone 15 mg tablet 15 mg PO BID 03/19/24 03/19/24 diltiazem HCl 120 mg 120 mg PO DAILY 03/19/24 03/19/24 capsule,extended release 24 hr ergocalciferol (vitamin D2) 1,250 1,250 mcg PO [id number] 03/19/24 03/19/24 mcg (50,000 unit) capsule ferrous sulfate 325 mg (65 mg 325 mg PO HS 03/19/24 03/19/24 iron) tablet omeprazole 40 mg capsule,delayed 40 mg PO DAILY 03/19/24 03/19/24 release ropinirole 1 mg tablet 1 mg PO HS 03/19/24 03/19/24 tiotropium bromide 18 mcg capsule 18 mcg inhalation DAILY 03/19/24 03/19/24 with inhalation device (Spiriva with HandiHaler) topiramate 25 mg sprinkle capsule 25 mg PO BID 03/19/24 03/19/24 venlafaxine 150 mg 150 mg PO DAILY 03/19/24 03/19/24 capsule,extended release 24 hr Allergies Allergy/AdvReac Type Severity Reaction Status Date / Time Penicillins Allergy Unknown Swelling Verified 02/14/24 15:08 Sulfa (Sulfonamide Allergy Unknown Rash Verified 02/14/24 15:08 Antibiotics) Review of Systems Review of Systems: All systems reviewed & are unremarkable except as noted in HPI and below PMFSH Past Medical History Medical History Alternating constipation and diarrhea Anxiety Arthritis of wrist, right Bilateral primary osteoarthritis of knee Cervical disc disorder with radiculopathy Chronic bronchitis Chronic hypoxic respiratory failure, on home oxygen therapy 2 L at rest 4 L with activity Chronic migraine Chronic nausea Chronic obstructive pulmonary disease Chronic respiratory failure with hypoxia CVID (common variable immunodeficiency) Depression Dyslipidemia Eczema Essential hypertension Family history of aneurysm of blood vessel of brain Former smoker GERD (gastroesophageal reflux disease) Herpes simplex type 2 infection Hiatal hernia HTN (hypertension) Hyperlipidemia Hypothyroid Iron deficiency Mixed hyperlipidemia (10/28/18) Obstructive sleep apnea Osteopenia Overweight Postmenopausal Postmenopausal Pre-diabetes Pulmonary nodule Restless leg syndrome Seasonal allergies Tachycardia Chronic with baseline heart rate 90s to low 100s Ulcer Uterine cancer Vitamin D deficiency, unspecified Surgical History Surgical History History of carpal tunnel release History of hysterectomy History of tonsillectomy Family History Family History Mother Family history of chronic obstructive pulmonary disease Hypertension Chronic obstructive pulmonary disease Sibling Family history of malignant neoplasm Asthma Grandparent Acute myocardial infarction Social History Social History Social History: 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 She smoked at least 1 pack of cigarettes per day from the time she was a teenager until approximately 2008. She denies any significant alcohol or illicit substance use. She owns her own home and her adult son, [id number] live with her. Her adult grandchild just recently moved in. Code status: Full code (patient would not want tracheostomy or feeding tube but is okay with short-term ventilation. Surrogate decision maker: Nani Francisco (sister) Smoking packs per day: 1 Smoking cigarettes per day: 20.0 Years smoked: 40 Smoking pack-years: 40.00 Smoking status: Former smoker Tobacco type: cigarettes Second hand tobacco smoke exposure: Yes Smoking end date: 04/12/08 Alcohol intake: never Substance use: never Substance use type: does not use Do You Feel Safe in your Home?: Yes Lack of Transportation: No Lack of Food: Never True Current Housing: I Have Housing Concerned About Future Housing: No Difficulty Paying Gas/Electric Bills: No Difficulty Paying for Meds: No Currently Unemployed: No Education: Grade School Difficulty w/ Childcare or Family Care: No Living arrangements: alone Occupation/Education: occupation 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 Gender identity (if verbalized by the patient): Female Spiritual care concerns: No Agree to blood products: No Exam 2 Narrative: GENERAL APPEARANCE: WELL-DEVELOPED, WELL-NOURISHED SKIN: NORMAL COLOR HEAD: NORMOCEPHALIC, NONTRAUMATIC EYES: CLEAR CONJUNCTIVA ENT: OROPHARYNX NORMAL, EARS NORMAL, NOSE NORMAL NECK: SUPPLE, NONTENDER CHEST AND RESPIRATORY: AIRWAY PATENT, MILD LABORED BREATHING, DIMINUTION OF AIR ENTRY BILATERALLY MAINLY AT THE BASES , NO ACCESSORY MUSCLE USE HEART: REGULAR RATE/RHYTHM ABDOMEN: SOFT, NONTENDER, NO ORGANOMEGALY, QUIET BOWEL SOUNDS VASCULAR: NORMAL PERIPHERAL PULSES, NORMAL CAPILLARY REFILL. MUSCULOSKELETAL: NORMAL RANGE OF MOTION, NONTENDER BACK NEUROLOGIC: ALERT AND ORIENTED ?3, INFORMATION SYSTEMS COORDINATOR IS NORMAL TESTED, NO GROSS MOTOR DEFICIT Course Vital Signs Vital signs: Vital Signs Pulse Rate 89 03/19/24 16:22 Respiratory Rate 22 H 03/19/24 16:22 Blood Pressure 123/85 03/19/24 16:22 Pulse Oximetry 94 03/19/24 16:22 Oxygen Delivery Nasal Cannula 03/19/24 16:22 Oxygen Flow Rate 2 03/19/24 16:22 Temperature 36.2 C L 03/20/24 22:00 Pulse Rate 105 H 03/20/24 22:00 Respiratory Rate 18 03/20/24 22:00 Blood Pressure 100/53 L 03/20/24 22:00 Pulse Oximetry 99 03/20/24 22:00 Oxygen Delivery Nasal Cannula 03/20/24 19:42 Oxygen Flow Rate 2 03/20/24 19:42 Fraction of Inspired Oxygen 28 03/20/24 08:09 MDM - SOB/Dyspnea MDM Narrative Medical decision making narrative: PATIENT PRESENTS WITH WORSENING SHORTNESS OF BREATH OVER THE LAST FEW DAYS VITAL SIGNS SHOWING RESPIRATORY RATE 22 PER MINUTE OTHERWISE WITHIN NORMAL LIMIT PHYSICAL EXAMINATION SHOWING MARKED DIMINUTION OF AIR ENTRY BILATERALLY, MAINLY AT THE BASIS. DIFFERENTIAL DIAGNOSIS COPD EXACERBATION, UPPER RESPIRATORY VIRAL INFECTION, PNEUMONIA, LESS LIKELY CONGESTIVE HEART FAILURE OR CORONARY ARTERY DISEASE. BLOOD WORKUP TODAY INCLUDES CBC, CMP, LACTIC ACID, BLOOD CULTURE, PT PTT SHOWED NO SIGNIFICANT ABNORMALITY PATIENT TESTED NEGATIVE FOR COVID, FLU AND RSV CHEST X-RAY SHOWED EMPHYSEMA, ATELECTASIS VERSUS PNEUMONIA AT THE LOWER LOBES BILATERALLY ALTHOUGH PATIENT'S NUMBER LOOKS OKAY BUT SHE DOES LOOK LIKE SHE HAVE SLIGHT LABORED BREATHING AT REST. Differential Diagnosis Differential diagnosis: Likely other ( ABOVE) Lab Data 03/20/24 10:13 03/20/24 10:13 Labs: Lab Results 03/19/24 03/19/24 03/19/24 Range/Units 12:39 12:41 18:02 WBC 7.3 (4.5-10.0) K/mm3 RBC 4.62 (4.2-5.4) M/mm3 Hgb 14.6 (12.0-15.0) g/dL Hct 43.0 (37.0-47.0) % MCV 93.1 (80-100) fl MCH 31.6 (26-34) pg MCHC 34.0 (32-36) g/dl RDW 12.6 (11.5-14.5) % Plt Count 188 (150-375) k/mm3 MPV 10.2 (7.4-10.4) fl Immature Gran % (Auto) 0.4 (0-0.5) % Neut % (Auto) 77.3 H (45.5-73.1) % Lymph % (Auto) 12.4 L (18.3-44.2) % Morrow % (Auto) 7.5 (2.6-8.5) % Eos % (Auto) 2.0 (0-4.4) % Baso % (Auto) 0.4 (0.2-1.2) % Lymph # (Auto) 0.91 (0.9-3.2) K/mm3 Morrow # (Auto) 0.6 (0.1-0.6) K/mm3 Eos # (Auto) 0.2 (0-0.3) K/mm3 Baso # (Auto) 0.0 (0.0-0.1) K/mm3 Abs Immat Gran (auto) 0.03 (0.00-0.031) K/mm3 Absolute Neuts (auto) 5.7 (1.3-6.7) K/mm3 Absolute Nucleated RBC 0.000 (0.0-0.012) K/mm3 Nucleated RBC % 0.0 (0.0-0.2) % Sodium 141 (137-145) mmol/L Potassium 3.5 (3.4-5.0) mmol/L Chloride 110 H (98-107) mmol/L Carbon Dioxide 25 (22-30) mmol/L Anion Gap 6 (4-12) mmol/L BUN 9 (7-17) mg/dL Creatinine 0.60 L (0.7-1.0) mg/dL Estim Creat Clear Calc Not Reportable Estimated GFR > 60 (59 - ) Glucose 123 H (65-110) mg/dL Lactic Acid (0.7-2.0) mmol/L Calcium 8.8 (8.4-10.2) mg/dL Total Bilirubin 0.7 (0.2-1.3) mg/dL AST 23 (14-36) U/L ALT 18 (6-35) U/L Alkaline Phosphatase 119 (38-126) U/L C-Reactive Protein < 0.5 (<1.0) mg/dL Total Protein 7.0 (6.3-8.2) g/dL Albumin 4.1 (3.5-5.1) g/dL Influenza A (RT-PCR) Negative (Negative) Influenza B (RT-PCR) Negative (Negative) RSV (RT-PCR) Negative (Negative) SARS-CoV-2 RNA (RT-PCR) Negative (Negative) 03/19/24 Range/Units 18:31 WBC (4.5-10.0) K/mm3 RBC (4.2-5.4) M/mm3 Hgb (12.0-15.0) g/dL Hct (37.0-47.0) % MCV (80-100) fl MCH (26-34) pg MCHC (32-36) g/dl RDW (11.5-14.5) % Plt Count (150-375) k/mm3 MPV (7.4-10.4) fl Immature Gran % (Auto) (0-0.5) % Neut % (Auto) (45.5-73.1) % Lymph % (Auto) (18.3-44.2) % Morrow % (Auto) (2.6-8.5) % Eos % (Auto) (0-4.4) % Baso % (Auto) (0.2-1.2) % Lymph # (Auto) (0.9-3.2) K/mm3 Morrow # (Auto) (0.1-0.6) K/mm3 Eos # (Auto) (0-0.3) K/mm3 Baso # (Auto) (0.0-0.1) K/mm3 Abs Immat Gran (auto) (0.00-0.031) K/mm3 Absolute Neuts (auto) (1.3-6.7) K/mm3 Absolute Nucleated RBC (0.0-0.012) K/mm3 Nucleated RBC % (0.0-0.2) % Sodium (137-145) mmol/L Potassium (3.4-5.0) mmol/L Chloride (98-107) mmol/L Carbon Dioxide (22-30) mmol/L Anion Gap (4-12) mmol/L BUN (7-17) mg/dL Creatinine (0.7-1.0) mg/dL Estim Creat Clear Calc Estimated GFR (59 - ) Glucose (65-110) mg/dL Lactic Acid 1.0 (0.7-2.0) mmol/L Calcium (8.4-10.2) mg/dL Total Bilirubin (0.2-1.3) mg/dL AST (14-36) U/L ALT (6-35) U/L Alkaline Phosphatase (38-126) U/L C-Reactive Protein (<1.0) mg/dL Total Protein (6.3-8.2) g/dL Albumin (3.5-5.1) g/dL Influenza A (RT-PCR) (Negative) Influenza B (RT-PCR) (Negative) RSV (RT-PCR) (Negative) SARS-CoV-2 RNA (RT-PCR) (Negative) ABG Data ABG results: 03/19/24 16:24 Puncture Site Right brachial ABG pH 7.396 ABG pCO2 38.7 ABG pO2 85.8 ABG PO2/FiO2 Ratio 3.06 ABG HCO3 23.2 ABG O2 Saturation 96.5 ABG O2 Content 19.7 ABG Base Excess -1.3 A-a Gradient 68.2 Oxyhemoglobin 95.8 Total Hemoglobin 14.6 O2 Delivery Device Nasal cannula O2 Liters/Min 2.0 FiO2 28 Imaging Data Radiologist's impression: Impressions Chest X-Ray 03/19/24 13:01 IMPRESSION: 1. Airspace opacities in the lower lung zones, consistent with atelectasis versus pneumonia. 2. Emphysema. Critical Care Time Critical Care Time Critical Care Time: No Discharge Plan Discharge Clinical Impression: Acute exacerbation of chronic obstructive pulmonary disease Pneumonia Qualifiers: Pneumonia type: due to unspecified organism Laterality: bilateral Lung location: lower lobe of lung Qualified Code(s): J18.9 - Pneumonia, unspecified organism Patient Disposition: Still a Patient Condition: Stable
[2024-03-19 16:33] LABS: Alveolar/Arterial O2 Gradient 68.2 mmHg; Base Excess ABG -1.3 mEq/l (+/-2.0); Fractional Inspired Oxygen 28 %; HCO3 ABG 23.2 mEq/l (22.0-26.0); Oxygen Content ABG 19.7 %vol (16.0-22.0); Oxygen Saturation ABG 96.5 % (95.0-100.0); Oxyhemoglobin 95.8 % THb (90.0-100.0); PCO2 ABG 38.7 mmHg (35.0-45.0); PO2 ABG 85.8 mmHg (80.0-100.0); PO2 FiO2 Ratio Arterial Blood 3.06 %; Total Hemoglobin 14.6 g/dL (12.0-18.0); pH ABG 7.396 (7.350-7.450)
[2024-03-19 16:35] LABS: Site Drawn RIGHT BRACHIAL
[2024-03-19 16:36] LABS: Device NASAL CANNULA
[2024-03-19] MEDS: IPRATROPIUM 0.5 MG/ALBUTEROL SULFATE 2.5 MG AMPUL.NEB 3 ML INHALATION (17:24)
[2024-03-19] MEDS: methylPREDNISolone SOD SUCC 125 MG VIAL IV PUSH (17:36)
[2024-03-19] MEDS: levoFLOXacin 750 MG/D5W 150 ML 750 MG/150 ML BAG 100 MG IVPB (18:17)
[2024-03-19 18:23] LABS: CRP < 0.5 mg/dL (<1.0)
--- NOTE | 2024-03-19 20:26 | ADMGEN ---
This patient, Dayanara Malcolm, was admitted to Medical Room 253-01. Patient/family oriented to hospital policies and general routines including ID bracelet, bed and alarms, visiting hours, pain management, procedures, bathroom and other care routines, personal items, smoking policy, room service/diet, and visiting hours. Information on how to activate the Rapid Response Team has been discussed. Patient/Family are encouraged to report perceived risks to care and to ask questions if they do not understand what they are told or what they should do.
[2024-03-19] MEDS: methylPREDNISolone SOD SUCC 125 MG VIAL 60 MG IV PUSH (23:14)
[2024-03-19] MEDS: busPIRone HCL 5 MG TABLET 15 MG PO (23:14)
[2024-03-19] MEDS: ONDANSETRON HCL ODT 4 MG TABLET PO (23:14)
[2024-03-20] VITALS (10 sets, daily range): BP systolic 100–110; BP diastolic 51–60; PULSE 85–112; RESP 18–20; TEMP 36.2–36.7; O2SAT 95–99
[2024-03-20] MEDS: methylPREDNISolone SOD SUCC 125 MG VIAL 60 MG IV PUSH (05:34)
[2024-03-20] MEDS: LEVOTHYROXINE SODIUM 88 MCG TABLET PO (05:34)
--- NOTE | 2024-03-20 08:04 | PM.IMHP ---
H&P: HPI History of Present Illness Date/Time: 03/20/24 08:04 Chief Complaint: Worsening shortness of breast Narrative: 73-year-old female with past medical history of COPD with chronic hypoxic respiratory failure, anxiety, essential hypertension, GERD, hyperlipidemia and restless leg syndrome who presented to the ER from home by private vehicle due to worsening shortness of breath. The patient reports that she has been feeling more short of breath for the last 2-3 days. She has developed increased cough and her sputum has changed from clear to yellowish color. Her sputum has been thicker despite her use of Mucinex twice daily as this per her normal regimen. She denies any fevers or chills. She has not been having any chest pain. She reported that she has become weaker and feels shaky when she is on her feet. She stated that she was so weak that she almost fell while getting out of the shower. She denies any known ill contacts. She reports that she has been traveling for job. 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 She usually uses her nebulizers at home 1 to 4 times a day but had only been using her rescue inhaler while she was out of town for work. She can take her nebulizer on the road but she did not think to do so. She denies any lower extremity swelling, orthopnea or paroxysmal nocturnal dyspnea. The patient states that she was more worried because her heart rate was elevated above her usual of 102 beats per minute up to 104 beats per minute after she took a shower prior to coming into the ER. Review of Systems Review of Systems: 12 systems were reviewed with pertinent positives and negatives per HPI. Except as documented in the HPI, all other systems were reviewed and are negative. FORMERLY [facility], [facility] Past Medical History Medical History (Updated 03/20/24 @ 08:26 by Anna Villarreal DO) Alternating constipation and diarrhea Anxiety Arthritis of wrist, right Bilateral primary osteoarthritis of knee Cervical disc disorder with radiculopathy Chronic bronchitis Chronic hypoxic respiratory failure, on home oxygen therapy 2 L at rest 4 L with activity Chronic migraine Chronic nausea Chronic obstructive pulmonary disease Chronic respiratory failure with hypoxia CVID (common variable immunodeficiency) Depression Dyslipidemia Eczema Essential hypertension Family history of aneurysm of blood vessel of brain Former smoker GERD (gastroesophageal reflux disease) Herpes simplex type 2 infection Hiatal hernia HTN (hypertension) Hyperlipidemia Hypothyroid Iron deficiency Mixed hyperlipidemia (10/28/18) Obstructive sleep apnea Osteopenia Overweight Postmenopausal Postmenopausal Pre-diabetes Pulmonary nodule Restless leg syndrome Seasonal allergies Tachycardia Chronic with baseline heart rate 90s to low 100s Ulcer Uterine cancer Vitamin D deficiency, unspecified Surgical History Surgical History History of carpal tunnel release History of hysterectomy History of tonsillectomy Family History Family History Mother Family history of chronic obstructive pulmonary disease Hypertension Chronic obstructive pulmonary disease Sibling Family history of malignant neoplasm Asthma Grandparent Acute myocardial infarction Social History Social History (Updated 03/20/24 @ 08:22 by Anna Villarreal DO) Social History: 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 She smoked at least 1 pack of cigarettes per day from the time she was a teenager until approximately 2008. She denies any significant alcohol or illicit substance use. She owns her own home and her adult son, [id number] live with her. Her adult grandchild just recently moved in. Code status: Full code (patient would not want tracheostomy or feeding tube but is okay with short-term ventilation. Surrogate decision maker: Nani Francisco (sister) Smoking packs per day: 1 Smoking cigarettes per day: 20.0 Years smoked: 40 Smoking pack-years: 40.00 Smoking status: Former smoker Tobacco type: cigarettes Second hand tobacco smoke exposure: Yes Smoking end date: 04/12/08 Alcohol intake: never Substance use: never Substance use type: does not use Do You Feel Safe in your Home?: Yes Lack of Transportation: No Lack of Food: Never True Current Housing: I Have Housing Concerned About Future Housing: No Difficulty Paying Gas/Electric Bills: No Difficulty Paying for Meds: No Currently Unemployed: No Education: Grade School Difficulty w/ Childcare or Family Care: No Living arrangements: alone Occupation/Education: occupation 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 Gender identity (if verbalized by the patient): Female Spiritual care concerns: No Agree to blood products: No Meds Home Medications and Allergies Home Medications Medication Instructions Recorded Confirmed Type immune glob G 10 gram/100 100 ml subcut WEEKLY 03/17/20 03/19/24 History mL(10%)-gly-IgA ave 46 mcg/mL injection soln (Gamunex-C) acetaminophen 650 mg 650 mg PO Q12H PRN Pain (Scale 06/07/23 03/19/24 History tablet,extended release (Tylenol Score 1-3) Arthritis Pain) albuterol sulfate 90 mcg/actuation 1 - 2 puff inhalation Q4-6H PRN 06/07/23 03/19/24 History aerosol inhaler Shortness Of Breath valacyclovir 500 mg tablet 500 mg PO DAILY #90 tabs 06/11/23 03/19/24 Rx roflumilast 500 mcg tablet 500 mcg PO DAILY 90 days #90 tabs 06/29/23 03/19/24 Rx (Daliresp) fluticasone 250 mcg-salmeterol 50 1 inh inhalation Q12H 90 days #180 07/05/23 03/19/24 Rx mcg/dose blistr powdr for ea inhalation (Wixela Inhub) atorvastatin 40 mg tablet 40 mg PO DAILY #90 tabs 08/09/23 03/19/24 Rx cetirizine 10 mg tablet 10 mg PO DAILY allergy symptoms 08/09/23 03/19/24 Rx #90 tabs levothyroxine 88 mcg tablet 88 mcg PO DAILY #90 tabs 08/09/23 03/19/24 Rx montelukast 10 mg tablet 10 mg PO DAILY #90 tabs 08/09/23 03/19/24 Rx denosumab 60 mg/mL subcutaneous 60 mg subcut [id number] #1 mL 11/05/23 03/19/24 Rx syringe (Prolia) ondansetron 4 mg disintegrating 4 mg PO Q8H PRN nausea and 11/15/23 03/19/24 Rx tablet vomiting #60 tabs ubrogepant 100 mg tablet (Ubrelvy) 100 mg PO ONCE PRN migraine 12/21/23 03/19/24 Rx headache #14 tabs levalbuterol HCl 1.25 mg/3 mL See Rx Instructions .Route 12/23/23 03/19/24 Rx solution for nebulization .COMPLEX #270 mL lisinopril 10 mg tablet 10 mg PO DAILY #90 tabs 12/23/23 03/19/24 Rx potassium chloride 20 mEq 20 meq PO DAILY #90 tabs 12/23/23 03/19/24 Rx tablet,extended release buspirone 15 mg tablet 15 mg PO BID 03/19/24 03/19/24 History diltiazem HCl 120 mg 120 mg PO DAILY 03/19/24 03/19/24 History capsule,extended release 24 hr ergocalciferol (vitamin D2) 1,250 1,250 mcg PO [id number] 03/19/24 03/19/24 History mcg (50,000 unit) capsule ferrous sulfate 325 mg (65 mg 325 mg PO HS 03/19/24 03/19/24 History iron) tablet omeprazole 40 mg capsule,delayed 40 mg PO DAILY 03/19/24 03/19/24 History release ropinirole 1 mg tablet 1 mg PO HS 03/19/24 03/19/24 History tiotropium bromide 18 mcg capsule 18 mcg inhalation DAILY 03/19/24 03/19/24 History with inhalation device (Spiriva with HandiHaler) topiramate 25 mg sprinkle capsule 25 mg PO BID 03/19/24 03/19/24 History venlafaxine 150 mg 150 mg PO DAILY 03/19/24 03/19/24 History capsule,extended release 24 hr Allergies Allergy/AdvReac Type Severity Reaction Status Date / Time Penicillins Allergy Unknown Swelling Verified 02/14/24 15:08 Sulfa (Sulfonamide Allergy Unknown Rash Verified 02/14/24 15:08 Antibiotics) Vital Signs Vital Signs - 24 hr 03/19/24 16:22 03/19/24 16:22 03/19/24 17:24 Temperature Pulse Rate 89 104 H Respiratory Rate 22 H 24 H Blood Pressure 123/85 Pulse Oximetry 94 98 Oxygen Delivery Nasal Cannula Oxygen Flow Rate 2 03/19/24 17:32 03/19/24 17:41 03/19/24 18:29 Temperature Pulse Rate 86 92 95 Respiratory Rate 24 H 20 20 Blood Pressure 114/91 H 115/69 Pulse Oximetry 97 97 Oxygen Delivery Oxygen Flow Rate 03/19/24 19:30 03/19/24 20:53 03/19/24 23:52 Temperature 98.0 F Pulse Rate 108 H 90 Respiratory Rate 18 18 Blood Pressure 105/78 101/72 Pulse Oximetry 98 98 100 Oxygen Delivery Nasal Cannula Oxygen Flow Rate 2 03/20/24 06:03 Temperature 98.0 F Pulse Rate 85 Respiratory Rate 18 Blood Pressure 108/60 Pulse Oximetry 98 Oxygen Delivery Oxygen Flow Rate Exam Narrative: Weight 62.7 kg BMI 27 Const: Other: Chronically ill-appearing, appears older than stated age, height and weight proportionate HENMT: Other: Appears that patient has dentures in place, mucous membranes are tacky, no oral pharyngeal erythema, nasal cannula oxygen in place patient is on her home O2 of 2 L Eyes: Other: Pupils are equal and reactive, no scleral icterus, no conjunctival pallor, slight clouding to lenses bilaterally Neck: Other: No JVD, no obvious lymphadenopathy Resp: Other: Decreased breath sounds at the bases bilaterally, no increased work of breathing Cardio: Other: Regular rate, regular rhythm, 2+ bilateral radial pedal pulses GI: Other: Soft, nontender, nondistended, positive bowel sounds Back/Spine/Pelvis: Other: Mild to moderate thoracic kyphosis Skin: Other: Jaundice, no pallor Neuro: Other: Alert orient x4, speech is clear, no facial asymmetry, no localizing neurologic deficits noted during the course of conversation Extrem: Other: Clubbing of nail beds, no cyanosis, no edema Psych: Other: Appropriate mood and affect, pleasant and cooperative, judgment and insight intact H&P: Results Labs Labs: Laboratory Tests 03/19/24 12:39 03/19/24 12:39 03/19/24 03/19/24 03/19/24 12:39 12:41 16:24 WBC 7.3 RBC 4.62 Hgb 14.6 Hct 43.0 MCV 93.1 MCH 31.6 MCHC 34.0 RDW 12.6 Plt Count 188 MPV 10.2 Immature Gran % (Auto) 0.4 Neut % (Auto) 77.3 H Lymph % (Auto) 12.4 L Lee % (Auto) 7.5 Eos % (Auto) 2.0 Baso % (Auto) 0.4 Lymph # (Auto) 0.91 Lee # (Auto) 0.6 Eos # (Auto) 0.2 Baso # (Auto) 0.0 Abs Immat Gran (auto) 0.03 Absolute Neuts (auto) 5.7 Absolute Nucleated RBC 0.000 Nucleated RBC % 0.0 Puncture Site Right brachial ABG pH 7.396 ABG pCO2 38.7 ABG pO2 85.8 ABG PO2/FiO2 Ratio 3.06 ABG HCO3 23.2 ABG O2 Saturation 96.5 ABG O2 Content 19.7 ABG Base Excess -1.3 A-a Gradient 68.2 Oxyhemoglobin 95.8 Total Hemoglobin 14.6 O2 Delivery Device Nasal cannula O2 Liters/Min 2.0 FiO2 28 Sodium 141 Potassium 3.5 Chloride 110 H Carbon Dioxide 25 Anion Gap 6 BUN 9 Creatinine 0.60 L Estim Creat Clear Calc Not Reportable Estimated GFR > 60 Glucose 123 H Lactic Acid Calcium 8.8 Total Bilirubin 0.7 AST 23 ALT 18 Alkaline Phosphatase 119 C-Reactive Protein Total Protein 7.0 Albumin 4.1 Influenza A (RT-PCR) Negative Influenza B (RT-PCR) Negative RSV (RT-PCR) Negative SARS-CoV-2 RNA (RT-PCR) Negative 03/19/24 03/19/24 18:02 18:31 WBC RBC Hgb Hct MCV MCH MCHC RDW Plt Count MPV Immature Gran % (Auto) Neut % (Auto) Lymph % (Auto) Lee % (Auto) Eos % (Auto) Baso % (Auto) Lymph # (Auto) Lee # (Auto) Eos # (Auto) Baso # (Auto) Abs Immat Gran (auto) Absolute Neuts (auto) Absolute Nucleated RBC Nucleated RBC % Puncture Site ABG pH ABG pCO2 ABG pO2 ABG PO2/FiO2 Ratio ABG HCO3 ABG O2 Saturation ABG O2 Content ABG Base Excess A-a Gradient Oxyhemoglobin Total Hemoglobin O2 Delivery Device O2 Liters/Min FiO2 Sodium Potassium Chloride Carbon Dioxide Anion Gap BUN Creatinine Estim Creat Clear Calc Estimated GFR Glucose Lactic Acid 1.0 Calcium Total Bilirubin AST ALT Alkaline Phosphatase C-Reactive Protein < 0.5 Total Protein Albumin Influenza A (RT-PCR) Influenza B (RT-PCR) RSV (RT-PCR) SARS-CoV-2 RNA (RT-PCR) Impressions Chest X-Ray 03/19/24 13:01 IMPRESSION: 1. Airspace opacities in the lower lung zones, consistent with atelectasis versus pneumonia. 2. Emphysema. Assessment and Plan Assessment and plan (1) Chronic hypoxic respiratory failure, on home oxygen therapy: Code(s): J96.11 - Chronic respiratory failure with hypoxia; Z99.81 - Dependence on supplemental oxygen Status: Acute (2) Acute exacerbation of chronic obstructive pulmonary disease: Code(s): J44.1 - Chronic obstructive pulmonary disease with (acute) exacerbation Status: Acute (3) Chronic nausea: Code(s): R11.0 - Nausea Status: Acute (4) Pneumonia: Qualifiers: Pneumonia type: due to unspecified organism Laterality: bilateral Lung location: lower lobe of lung Qualified Code(s): J18.9 - Pneumonia, unspecified organism Code(s): J18.9 - Pneumonia, unspecified organism Status: Acute Plan The patient evidently has COPD exacerbation with decreased air movement. Is x-ray on my review actually appears similar to prior is on clear if there is actually a pneumonia versus chronic interstitial lung changes. But given the patient's history of common variable immune deficiency she is at increased risk of upper respiratory tract infections. She does not have a white count or fever to suggest pneumonia but given her immunodeficiency be safer to continue the patient on Levaquin. The patient is on her home O2. Will continue her on scheduled nebulizer treatments. I will transition her from IV steroids to oral. I think some of the patient's sensation of feeling shaky may be due to relatively high steroid dosage. Will switch the patient to prednisone 40 mg p.o. daily. Will add Acapella. Will continue home steroid/beta adrenergic inhalers. Will continue Zofran for patient's chronic nausea. Will continue patient's home psychiatric meds PPI, thyroid supplement and antihypertensives. Patient has been admitted as observation status. Quality VTE Prophylaxis VTE prophylaxis: pharmacologic ordered (Lovenox 40 mg subQ daily) Hospitalist [facility] Advance Care Plan I have confirmed that the patient's Advanced Care Plan is present, code status is documented, or surrogate decision maker is listed in patient medical record.: Yes Medication Reconciliation I have utilized all available resources to obtain, update and review the patients current medications (includes all prescriptions, OTC, herbals, cannabis, and nutritional supplements).: Yes
[2024-03-20] MEDS: IPRATROPIUM 0.5 MG/ALBUTEROL SULFATE 2.5 MG AMPUL.NEB 3 ML INHALATION ×3 (08:07→19:41)
[2024-03-20] MEDS: FLUTICASONE/SALMETEROL 115-21 MCG INHALER 1 PUFF INHALATION ×2 (08:43→19:41)
[2024-03-20] MEDS: POTASSIUM CHLORIDE 20 MEQ ER TABLET PO (08:53)
[2024-03-20] MEDS: VENLAFAXINE HCL XR 75 MG CAP.ER.24H 150 MG PO (08:53)
[2024-03-20] MEDS: dilTIAZem HCL CD 120 MG CAP.24HR PO (08:53)
[2024-03-20] MEDS: MONTELUKAST SODIUM 10 MG TABLET PO (08:53)
[2024-03-20] MEDS: PANTOPRAZOLE 40 MG TABLET PO ×2 (08:53→21:09)
[2024-03-20] MEDS: ATORVASTATIN 40 MG TABLET PO (08:53)
[2024-03-20] MEDS: LORATADINE 10 MG TABLET PO (08:53)
[2024-03-20] MEDS: busPIRone HCL 5 MG TABLET 15 MG PO ×2 (08:53→17:33)
[2024-03-20] MEDS: lisinopriL 10 MG TABLET PO (08:53)
[2024-03-20] MEDS: guaiFENesin 12 HR 600 MG TABCR 1200 MG PO ×2 (08:53→21:09)
[2024-03-20] MEDS: ENOXAPARIN 40 MG/0.4 ML SYRINGE SUB-Q (08:54)
[2024-03-20] MEDS: ROFLUMILAST 500 MCG TABLET PO (08:54)
[2024-03-20] MEDS: valACYclovir HCL 500 MG TABLET PO (08:54)
[2024-03-20] MEDS: predniSONE 20 MG TABLET 40 MG PO (08:57)
[2024-03-20 10:19] LABS: Hematocrit 40.5 % (37.0-47.0); Hemoglobin 13.6 g/dL (12.0-15.0); Mean Corpuscular HGB Conc 33.6 g/dl (32-36); Mean Corpuscular Hemoglobin 31.6 pg (26-34); Mean Corpuscular Volume 94.2 fl (80-100); Mean Platelet Volume 10.3 fl (7.4-10.4); Platelet Count Result 193 k/mm3 (150-375); Red Cell Distribution Width 12.6 % (11.5-14.5); White Blood Count 5.5 K/mm3 (4.5-10.0)
[2024-03-20 10:30] LABS: Alanine Aminotransferase 18 U/L (6-35); Albumin Level 4.1 g/dL (3.5-5.1); Alkaline Phosphatase 108 U/L (38-126); Anion Gap 7 mmol/L (4-12); Aspartate Amino Transferase 22 U/L (14-36); Bilirubin,Total 0.8 mg/dL (0.2-1.3); Blood Urea Nitrogen 12 mg/dL (7-17); Carbon Dioxide 24 mmol/L (22-30); Chloride 107 mmol/L (98-107); Estimated CRCL calculation 71 ml/min; Estimated Glomerular Filt Rate > 60; Glucose 214 mg/dL (65-110); Sodium 138 mmol/L (137-145)
--- NOTE | 2024-03-20 11:04 | P.PNCROSS_ITS ---
Event Note Event Note Event Note: Patient seen and assessed by previous provider same day. I followed up with margarito colindres still reporting SOB and not feeling back to baseline with her respiratory status. She stated she attempted her dounebs and inhalers at home with no relief and worsening dyspnea with activity. Will continue with current treatment plan and re-evaluate patient in the morning. Currently on 2L [place] which is her baseline oxygen requirements at home. Normal WBC and afebrile 97% SPO2 on RA. Should be able to discharge tomorrow if no events over night and feeling close to baseline.
[2024-03-20] MEDS: levoFLOXacin 750 MG TABLET PO (17:33)
[2024-03-20] MEDS: rOPINIRole HCL 1 MG TABLET PO (21:09)
[2024-03-20] MEDS: FERROUS SULFATE 325 MG TABLET DR BY MOUTH (21:09)
[2024-03-21] VITALS (9 sets, daily range): BP systolic 96–117; BP diastolic 40–54; PULSE 86–118; RESP 16–20; TEMP 36.4–36.5; O2SAT 97–98
[2024-03-21] MEDS: IPRATROPIUM 0.5 MG/ALBUTEROL SULFATE 2.5 MG AMPUL.NEB 3 ML INHALATION ×3 (02:10→13:05)
[2024-03-21] MEDS: LEVOTHYROXINE SODIUM 88 MCG TABLET PO (05:31)
[2024-03-21 07:10] LABS: Hematocrit 37.5 % (37.0-47.0); Hemoglobin 12.4 g/dL (12.0-15.0); Mean Corpuscular HGB Conc 33.1 g/dl (32-36); Mean Corpuscular Hemoglobin 31.9 pg (26-34); Mean Corpuscular Volume 96.4 fl (80-100); Mean Platelet Volume 10.9 fl (7.4-10.4); Platelet Count Result 187 k/mm3 (150-375); Red Blood Count 3.89 M/mm3 (4.2-5.4); Red Cell Distribution Width 12.8 % (11.5-14.5); White Blood Count 10.8 K/mm3 (4.5-10.0)
[2024-03-21 08:09] LABS: Alanine Aminotransferase 15 U/L (6-35); Albumin Level 3.4 g/dL (3.5-5.1); Alkaline Phosphatase 80 U/L (38-126); Anion Gap 6 mmol/L (4-12); Aspartate Amino Transferase 17 U/L (14-36); Bilirubin,Total 0.4 mg/dL (0.2-1.3); Blood Urea Nitrogen 19 mg/dL (7-17); Calcium 8.5 mg/dL (8.4-10.2); Carbon Dioxide 25 mmol/L (22-30); Chloride 110 mmol/L (98-107); Estimated CRCL calculation 53 ml/min; Estimated Glomerular Filt Rate > 60; Glucose 116 mg/dL (65-110); Potassium 3.7 mmol/L (3.4-5.0); Sodium 141 mmol/L (137-145)
[2024-03-21] MEDS: FLUTICASONE/SALMETEROL 115-21 MCG INHALER 1 PUFF INHALATION (08:28)
[2024-03-21] MEDS: predniSONE 20 MG TABLET 40 MG PO (09:03)
[2024-03-21] MEDS: POTASSIUM CHLORIDE 20 MEQ ER TABLET PO (09:03)
[2024-03-21] MEDS: LORATADINE 10 MG TABLET PO (09:03)
[2024-03-21] MEDS: VENLAFAXINE HCL XR 75 MG CAP.ER.24H 150 MG PO (09:04)
[2024-03-21] MEDS: PANTOPRAZOLE 40 MG TABLET PO (09:04)
[2024-03-21] MEDS: lisinopriL 10 MG TABLET PO (09:04)
[2024-03-21] MEDS: valACYclovir HCL 500 MG TABLET PO (09:04)
[2024-03-21] MEDS: ATORVASTATIN 40 MG TABLET PO (09:04)
[2024-03-21] MEDS: ROFLUMILAST 500 MCG TABLET PO (09:04)
[2024-03-21] MEDS: ENOXAPARIN 40 MG/0.4 ML SYRINGE SUB-Q (09:04)
[2024-03-21] MEDS: MONTELUKAST SODIUM 10 MG TABLET PO (09:04)
[2024-03-21] MEDS: dilTIAZem HCL CD 120 MG CAP.24HR PO (09:04)
[2024-03-21] MEDS: guaiFENesin 12 HR 600 MG TABCR 1200 MG PO (09:04)
[2024-03-21] MEDS: busPIRone HCL 5 MG TABLET 15 MG PO (09:04)
--- NOTE | 2024-03-21 12:49 | P.DS_ITS ---
DS: Admitting Diagnosis Discharge Date 03/21/2024 Admitting Diagnosis COPD exacerbation DS: Discharge Diagnosis Discharge Diagnosis (1) Chronic hypoxic respiratory failure, on home oxygen therapy: Code(s): J96.11 - Chronic respiratory failure with hypoxia; Z99.81 - Dependence on supplemental oxygen Status: Acute (2) Acute exacerbation of chronic obstructive pulmonary disease: Code(s): J44.1 - Chronic obstructive pulmonary disease with (acute) exacerbation Status: Acute (3) Chronic nausea: Code(s): R11.0 - Nausea Status: Acute (4) Pneumonia: Qualifiers: Laterality: bilateral Lung location: lower lobe of lung Pneumonia type: due to unspecified organism Qualified Code(s): J18.9 - Pneumonia, unspecified organism Code(s): J18.9 - Pneumonia, unspecified organism Status: Acute DS: Summary Hospital Course Reason for hospitalization: COPD exacerbation Hospital Course: patient was a 73-year-old female who presented to the emergency department with complaints of worsening shortness of breath. Patient has no past medical history of COPD with chronic respiratory failure, anxiety, hypertension, and restless legs syndrome. patient reported her shortness of breath had worsened for the last 2-3 days and she recently developed a new productive cough with yellowish-colored sputum. Patient had reports she attempt to use her inhalers at home was not having any relief. patient wears 2 L supplemental oxygen at home due to chronic respiratory failure with hypoxia. patient was admitted to the medical unit for treatment COPD exacerbation. patient was started on duo nebulizers, steroids, mucolytics, incentive spirometer as well as antibiotic therapy due to her immunocompromised state she was also treated for possible underlying respiratory bacterial infection. patient denied any fever and remained afebrile during her stay she had a normal WBC all other labs unremarkable. patient remain on 2 L which is her baseline at home maintaining an oxygen saturation of 92% patient was kept overnight and had overall improvement of respiratory status patient reporting she felt back to baseline she was then discharged home with oral antibiotics, steroids and recommended follow-up with her hvac r instructor. patient verbalized understanding of discharge plan and agreed. Patient discharged home on her home oxygen Time spent discussing smoking cessation with patient: 3 to 10 minutes Status at Discharge Functional status at discharge: independent ambulation Overall status at discharge: patient is back to baseline Time Spent with Patient Time attestation: Total time spent providing and/or coordinating discharge services: Time spent: Less than 30 minutes Exam Narrative: Physical Exam: * GENERAL: Alert and oriented x 3. No acute distress. * EYES: EOMI. No scleral icterus. PERRLA. * HEENT: Moist mucous membranes. * LUNGS: Clear to auscultation bilaterally. No accessory muscle use. * CARDIOVASCULAR: Regular rate and rhythm. No murmur. No JVD. S1-S2 * ABDOMEN: Soft, non tenderness and non-distended. No palpable masses. * EXTREMITIES: No edema. Non-tender * SKIN: No rashes or lesions. Skin warm, dry. * NEUROLOGIC: No focal neurological deficits. CN II-XII grossly intact * PSYCHIATRIC: Appropriate mood and affect. Good judgement and insight. No visual or auditory hallucinations. No suicidal or homicidal ideation. DS: Data Data Completed and Pending Labs on day of discharge: Labs from last 24 hours 03/21/24 05:53 WBC 10.8 H RBC 3.89 L Hgb 12.4 Hct 37.5 MCV 96.4 MCH 31.9 MCHC 33.1 RDW 12.8 Plt Count 187 MPV 10.9 H Sodium 141 Potassium 3.7 Chloride 110 H Carbon Dioxide 25 Anion Gap 6 BUN 19 H Creatinine 0.70 Estim Creat Clear Calc 53 Estimated GFR > 60 Glucose 116 H Calcium 8.5 Total Bilirubin 0.4 AST 17 ALT 15 Alkaline Phosphatase 80 Total Protein 6.0 L Albumin 3.4 L Preliminary micro results at discharge 03/19/24 18:02 Blood Culture - Preliminary Blood 03/19/24 18:02 Blood Culture - Preliminary Blood Imaging Radiologist's impression: EXAMINATION: XR chest 2V DATE: 03/19/2024 12:57 INDICATION: Shortness of breath. TECHNIQUE: Frontal and lateral views of the chest were obtained. COMPARISON: Chest 2 views 06/07/2023, chest CT 08/02/2023 FINDINGS: There are lucencies in the lungs, consistent with emphysema. There are airspace opacities in the lower lung zones. No pleural effusion or pneumothorax. The heart size is normal. IMPRESSION: 1. Airspace opacities in the lower lung zones, consistent with atelectasis versus pneumonia. 2. Emphysema. Discharge Plan Discharge Attending physician on discharge: Desmond Cordova Discharging Clinician: Greer Morrow Anticipated Discharge Date/Time: 03/21/24 10:55 Patient Disposition: Home, Self-Care Activity: as tolerated Diet: heart healthy Discharge Instructions: you are being discharged home after treatment for COPD exacerbation and possible underlying pneumonia I have prescribed an oral antibiotic please take as prescribed incomplete even if feeling better. continue with other supportive home to include using your incentive spirometer, acetaminophen for mild pain fevers and hydration. continue with your supplemental oxygen at home as previously prescribed. I also have sent in a prescription for oral steroids x4 days may cause jitteriness or palpitations. I do encourage follow-up with your hvac r instructor and primary care physician within 2-4 weeks I have resumed her home medications as previously prescribed I would recommend pulmonary rehab and immediate smoking cessation at attached information in education regarding COPD and oxygen safety How can you care for yourself at home? ? Keep track of any new symptoms or changes in your symptoms. ? Rest until you feel better. ? Be safe with medicines. Take your medicines exactly as prescribed. Call your doctor if you think you are having a problem with your medicine. ? Do not drive after taking a prescription pain medicine. ? Ensure to follow-up with primary care physician as indicated and provide updated medication list provided to you at discharge. When should you call for help? Call 911 anytime you think you may need emergency care. For example, call if: ? You passed out (lost consciousness). Call your doctor now or seek immediate medical care if: ? You have new symptoms like fever, difficulty breathing, Chest pain, vomiting, or rash. ? You have new or different pain. ? You are confused and are having trouble thinking clearly. ? Your symptoms are getting worse. Watch closely for changes in your health, and be sure to contact your doctor if: ? You do not get better as expected. Patient Instructions: Antibiotic Form, Using Oxygen at Home (DC), COPD (Chronic Obstructive Pulmonary Disease) (DC), Chronic Lung Disease and Infection Prevention (DC), Pulmonary Rehabilitation (DC), Energy Conservation Techniques (DC), Dyspnea Scale and Exercise (DC), Nutrition Guidelines for People with COPD (DC) Patient Language: Setswana Stand Alone Forms: General Discharge Information Follow-up/Referrals: Sonia Ugalde PROJECT ASSISTANT-C [Primary Care Provider] - 03/21/24 Discharge Medications: New prednisone 20 mg Tablet 40 mg PO DAILY@0800 Qty: 8 0RF guaifenesin [Mucus Relief ER] 600 mg Tablet Extended Release 12hr 1,200 mg PO Q12HR Qty: 14 0RF doxycycline hyclate 100 mg capsule 100 mg PO DAILY Qty: 10 0RF Continued albuterol sulfate 90 mcg/actuation HFA aerosol inhaler 1 - 2 puff INHALATION Q4-6H PRN (Reason: Shortness Of Breath) valacyclovir 500 mg tablet 500 mg PO DAILY Qty: 90 4RF acetaminophen [Tylenol Arthritis Pain] 650 mg tablet extended release 650 mg PO Q12H PRN (Reason: Pain (Scale Score 1-3)) Ubrelvy 100 mg tablet 100 mg PO ONCE PRN (Reason: migraine headache) Qty: 14 3RF Rx Instructions: as a single dose; may repeat once in >=2 hours after first dose if needed Gamunex-C 10 gram/100 mL (10 %) solution 100 ml subcut WEEKLY Rx Instructions: TAKES ON TUESDAYS ropinirole 1 mg tablet 1 mg PO HS Rx Instructions: TAKE 1 TABLET BY MOUTH 1-2 HOURS BEFORE BEDTIME omeprazole 40 mg capsule,delayed release(DR/EC) 40 mg PO DAILY Rx Instructions: TAKE 1 CAPSULE BY MOUTH EVERY DAY topiramate 25 mg capsule, sprinkle 25 mg PO BID Rx Instructions: TAKE 1 CAPSULES BY MOUTH TWICE A DAY ferrous sulfate 325 mg (65 mg iron) tablet 325 mg PO HS diltiazem HCl 120 mg capsule,extended release 24hr 120 mg PO DAILY Rx Instructions: TAKE 1 CAPSULE BY MOUTH EVERY DAY ergocalciferol (vitamin D2) 1,250 mcg (50,000 unit) capsule 1,250 mcg PO [id number] Rx Instructions: NEEDS ON WEDNESDAY buspirone 15 mg tablet 15 mg PO BID Rx Instructions: TAKE 1 TABLET BY MOUTH TWICE A DAY tiotropium bromide [Spiriva with HandiHaler] 18 mcg capsule, w/inhalation device 18 mcg inhalation DAILY Rx Instructions: INHALE THE CONTENTS OF 1 CAPSULE BY MOUTH ONCE DAILY venlafaxine 150 mg capsule,extended release 24hr 150 mg PO DAILY Rx Instructions: TAKE 1 CAPSULE BY MOUTH EVERY DAY Daliresp 500 mcg tablet 500 mcg PO DAILY 90 Days Qty: 90 3RF Rx Instructions: TAKE 1 TABLET BY MOUTH DAILY fluticasone propion-salmeterol [Wixela Inhub] 250-50 mcg/dose blister with device 1 inh inhalation Q12H 90 Days Qty: 180 3RF Rx Instructions: rinse and spit montelukast 10 mg tablet 10 mg PO DAILY Qty: 90 1RF atorvastatin 40 mg tablet 40 mg PO DAILY Qty: 90 1RF levothyroxine 88 mcg tablet 88 mcg PO DAILY Qty: 90 1RF cetirizine 10 mg tablet 10 mg PO DAILY Qty: 90 0RF Prolia 60 mg/mL syringe 60 mg subcut [id number] Qty: 1 1RF Rx Instructions: DUE IN 2024 ondansetron 4 mg tablet,disintegrating 4 mg PO Q8H PRN (Reason: nausea and vomiting) Qty: 60 1RF levalbuterol HCl 1.25 mg/3 mL solution for nebulization See Rx Instructions .ROUTE .COMPLEX Qty: 270 3RF Dose Instruction: INHALE THE CONTENTS OF 1 VIAL VIA NEBULIZER 3 TIMES DAILY NEEDED FOR SHORTNESS OF BREATH/WHEEZING Rx Instructions: INHALE THE CONTENTS OF 1 VIAL VIA NEBULIZER 4 TIMES DAILY NEEDED FOR SHORTNESS OF BREATH/WHEEZING potassium chloride 20 mEq tablet extended release 20 meq PO DAILY Qty: 90 1RF lisinopril 10 mg tablet 10 mg PO DAILY Qty: 90 1RF Date of admission: 03/19/24 18:53 Primary Care Provider: Sonia Ugalde Admitting Provider: Desmond Cordova Attending physician on admission: Greer Morrow Condition: Stable Quality -Patient's previous records reviewed on admission -ER notes reviewed in detail on admission -discussed all findings and current treatment plan with patient/Family/POA -Consultations reviewed for recommendations -Patient's disposition for safe discharge discussed with upper caser Dictation performed by [employer] direct speech recognition software, therefore volcanology professor variants and typographical errors may occur. Hospitalist MIPS Heart Failure (Exclusion) Patient has history of Heart Transplant or Left Ventricular Assistive Device?: No IF YES, STOP HERE Heart Failure (Qualifier) Patient has current or prior documentation of LVEF less than or equal to 40%, or mod/servere depressed LVSF?: No IF NO, STOP HERE
== END 2024-03-21 15:11 | disposition home or self-care (01) ==
LOC: ANHED 18:53 → ANH2MED 20:00
PROVIDERS: Student in an Organized Health Care Education/Training Program; Admitting Provider Internal Medicine; Emergency Provider Emergency Medicine; PCP Nurse Practitioner; Visit Provider Nurse Practitioner Family
DX: J18.9 Pneumonia, unspecified organism (principal); J44.0 Chronic obstructive pulmonary disease with (acute) lower respiratory infection; J44.1 Chronic obstructive pulmonary disease with (acute) exacerbation; J96.11 Chronic respiratory failure with hypoxia; R11.0 Nausea; Z99.81 Dependence on supplemental oxygen; I10 Essential (primary) hypertension; D83.9 Common variable immunodeficiency, unspecified; E03.9 Hypothyroidism, unspecified; G47.33 Obstructive sleep apnea (adult) (pediatric); F41.9 Anxiety disorder, unspecified; J44.9 Chronic obstructive pulmonary disease, unspecified; F32.A Depression, unspecified; K21.9 Gastro-esophageal reflux disease without esophagitis; E78.2 Mixed hyperlipidemia; E55.9 Vitamin D deficiency, unspecified; Z79.51 Long term (current) use of inhaled steroids; Z87.891 Personal history of nicotine dependence; Z20.822 Contact with and (suspected) exposure to COVID-19
CPT/HCPCS: 36415; 36600; 71046; 80053; 82805; 83605; 85018; 85025; 85027; 86140; 87040; 87637; 93005; 94640; 94667; 96365; 96366; 96372; 96375; 96376; 99285; A9270; G0378; J1650; J1956; J2919; J7512

== ENCOUNTER 2024-04-04 15:58 | Emergency (ER) | payer MEDICARE, MEDICAID, SELFPAY ==
[2024-04-04 16:00] VITALS: PULSE 115; RESP 26; O2SAT 95
[2024-04-04 16:10] VITALS: BP 124/72; PULSE 108; RESP 24; TEMP 36.7; O2SAT 98
--- NOTE | 2024-04-04 16:22 | ED_ITS ---
HPI - URI/Sore Throat General Chief Complaint: Upper Respiratory Infection Stated Complaint: COPD/SOB Time Seen by Provider: 04/04/24 16:22 Source: patient, RN notes reviewed and old records reviewed Mode of arrival: ambulatory Limitations: no limitations History of Present Illness HPI Narrative: Patient with history of COPD presents with complaints of exacerbation of symptoms. she reports that she has felt as though it is hard to ?push all the air out? Related Data Home Medications ?Medication ?Instructions ?Recorded ?Confirmed ?Last Taken ?Type immune glob G 10 gram/100 100 ml subcut WEEKLY 03/17/20 03/19/24 03/10/20 History mL(10%)-gly-IgA ave 46 mcg/mL injection soln (Gamunex-C) acetaminophen 650 mg 650 mg PO Q12H PRN Pain (Scale 06/07/23 03/19/24 Unknown History tablet,extended release (Tylenol Score 1-3) Arthritis Pain) albuterol sulfate 90 mcg/actuation 1 - 2 puff inhalation Q4-6H PRN 06/07/23 03/19/24 Unknown History aerosol inhaler Shortness Of Breath diltiazem HCl 120 mg 120 mg PO DAILY 03/19/24 03/19/24 Unknown History capsule,extended release 24 hr ergocalciferol (vitamin D2) 1,250 1,250 mcg PO [id number] 03/19/24 03/19/24 Unknown History mcg (50,000 unit) capsule ferrous sulfate 325 mg (65 mg 325 mg PO HS 03/19/24 03/19/24 Unknown History iron) tablet omeprazole 40 mg capsule,delayed 40 mg PO DAILY 03/19/24 03/19/24 Unknown History release ropinirole 1 mg tablet 1 mg PO HS 03/19/24 03/19/24 Unknown History tiotropium bromide 18 mcg capsule 18 mcg inhalation DAILY 03/19/24 03/19/24 Unknown History with inhalation device (Spiriva with HandiHaler) topiramate 25 mg sprinkle capsule 25 mg PO BID 03/19/24 03/19/24 Unknown History venlafaxine 150 mg 150 mg PO DAILY 03/19/24 03/19/24 Unknown History capsule,extended release 24 hr Allergies Allergy/AdvReac Type Severity Reaction Status Date / Time Penicillins Allergy Unknown Swelling Verified 02/14/24 15:08 Sulfa (Sulfonamide Allergy Unknown Rash Verified 02/14/24 15:08 Antibiotics) Review of Systems Review of Systems: All systems reviewed & are unremarkable except as noted in HPI and below Constitutional: Constitutional: Reports no additional constitutional complaints ENT: Reports system reviewed and no additional complaints, except as documented Cardiovascular: Cardiovascular: Reports no additional cardiovascular complaints Respiratory: Respiratory: Reports no additional respiratory complaints, Reports chest congestion, Reports cough and Reports wheezing Gastrointestinal: Gastrointestinal: Reports no additional gastrointestinal complaints [facility] Past Medical History Medical History Alternating constipation and diarrhea Anxiety Arthritis of wrist, right Bilateral primary osteoarthritis of knee Cervical disc disorder with radiculopathy Chronic bronchitis Chronic hypoxic respiratory failure, on home oxygen therapy 2 L at rest 4 L with activity Chronic migraine Chronic nausea Chronic obstructive pulmonary disease Chronic respiratory failure with hypoxia CVID (common variable immunodeficiency) Depression Dyslipidemia Eczema Essential hypertension Family history of aneurysm of blood vessel of brain Former smoker GERD (gastroesophageal reflux disease) Herpes simplex type 2 infection Hiatal hernia HTN (hypertension) Hyperlipidemia Hypothyroid Iron deficiency Mixed hyperlipidemia (10/28/18) Obstructive sleep apnea Osteopenia Overweight Postmenopausal Postmenopausal Pre-diabetes Pulmonary nodule Restless leg syndrome Seasonal allergies Tachycardia Chronic with baseline heart rate 90s to low 100s Ulcer Uterine cancer Vitamin D deficiency, unspecified Surgical History Surgical History History of carpal tunnel release History of hysterectomy History of tonsillectomy Family History Family History Mother Family history of chronic obstructive pulmonary disease Hypertension Chronic obstructive pulmonary disease Sibling Family history of malignant neoplasm Asthma Grandparent Acute myocardial infarction Social History Social History Social History: 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 She smoked at least 1 pack of cigarettes per day from the time she was a teenager until approximately 2008. She denies any significant alcohol or illicit substance use. She owns her own home and her adult son, [id number] live with her. Her adult grandchild just recently moved in. Code status: Full code (patient would not want tracheostomy or feeding tube but is okay with short-term ventilation. Surrogate decision maker: Nani Francisco (sister) Smoking packs per day: 1 Smoking cigarettes per day: 20.0 Years smoked: 40 Smoking pack-years: 40.00 Smoking status: Former smoker Tobacco type: cigarettes Second hand tobacco smoke exposure: Yes Smoking end date: 04/12/08 Alcohol intake: never Substance use: never Substance use type: does not use Do You Feel Safe in your Home?: Yes Lack of Transportation: No Lack of Food: Never True Current Housing: I Have Housing Concerned About Future Housing: No Difficulty Paying Gas/Electric Bills: No Difficulty Paying for Meds: No Currently Unemployed: No Education: Grade School Difficulty w/ Childcare or Family Care: No Living arrangements: alone Occupation/Education: occupation 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 There is no relevant family history pertinent to the patient complaint. Exam Const: General: cooperative, no acute distress, alert and awake Orientation/consciousness: oriented to person, oriented to place and oriented to time HENMT: Head: normal to inspection Mouth: Yes moist mucous membranes Resp: Effort & Inspection: normal respiratory effort and able to speak in co mplete sentences Auscultation: clear to auscultation bilaterally, no crackles, no rales, no rhonchi, no wheezes and diminished lung sounds Cardio: Palpation: normal PMI Rate: regular rate Rhythm: regular rhythm Heart sounds: S1 normal heart sound present and S2 normal heart sound present Neuro: General: oriented to person, oriented to place and oriented to time Cranial nerves: Yes CN's II-XII intact bilaterally Psych: Appearance: grossly normal Thought process: Normal thought process present Insight: Good insight present (Psych) Judgement: Good judgement present (Psych) Course Course Level of Care: Express Care Visit Vital Signs Vital signs: Vital Signs Pulse Rate 115 H 04/04/24 16:00 Respiratory Rate 26 H 04/04/24 16:00 Pulse Oximetry 95 04/04/24 16:00 Oxygen Delivery Nasal Cannula 04/04/24 16:00 Oxygen Flow Rate 4 04/04/24 16:00 Temperature 98.1 F 04/04/24 16:10 Pulse Rate 108 H 04/04/24 16:10 Respiratory Rate 24 H 04/04/24 16:10 Blood Pressure 124/72 04/04/24 16:10 Pulse Oximetry 98 04/04/24 16:10 Oxygen Delivery Nasal Cannula 04/04/24 16:10 Oxygen Flow Rate 4 04/04/24 16:10 Reviewed MDM - URI/Sore Throat MDM Narrative Medical decision making narrative: Patient with COPD, in exacerbation. Able to speak in complete sentences, no tripoding or pursed lip breathing noted. Start prednisone, azithromycin for additive anti-inflammatory. Patient advised to use home oxygen as directed by her prescriber. Emergency department precautions discussed at length. Discharge instructions reviewed with patient, as well as provided in writing per nursing staff. The instructions also include specific and strict return/GO TO THE ER as well as f/u information. All questions have been answered, and the patient deny any further questions with discharge and discharge plan. Some parts of this dictation were generated by voice recognition software and may contain typographical and/or grammatical inaccuracies. Differential Diagnosis Differential diagnosis: Likely upper respiratory infection, viral infection and bronchitis Medical Records Attestation: I reviewed the patient's medical records. Discharge Plan Discharge Clinical Impression: COPD exacerbation Patient Disposition: Home, Self-Care Condition: Stable Instructions: Antibiotic Form, COPD (Chronic Obstructive Pulmonary Disease) (ED) Additional Instructions: Take medications as prescribed. Follow with primary care provider. Emergency department for any new or worse symptoms Patient Language: Lithuanian Prescriptions: New azithromycin 250 mg tablet See Rx Instructions .ROUTE .COMPLEX Qty: 6 0RF Rx Instructions: For 250 mg dose pack: take 500 mg today (day 1), then 250 mg for 4 days (days 2-5) prednisone 50 mg tablet 50 mg PO DAILY Qty: 5 0RF albuterol sulfate [Ventolin HFA] 90 mcg/actuation HFA aerosol inhaler 2 puff inhalation QID PRN (Reason: shortness of breath or wheezing) Qty: 8.5 0RF No Action albuterol sulfate 90 mcg/actuation HFA aerosol inhaler 1 - 2 puff INHALATION Q4-6H PRN (Reason: Shortness Of Breath) valacyclovir 500 mg tablet 500 mg PO DAILY Qty: 90 4RF acetaminophen [Tylenol Arthritis Pain] 650 mg tablet extended release 650 mg PO Q12H PRN (Reason: Pain (Scale Score 1-3)) Ubrelvy 100 mg tablet 100 mg PO ONCE PRN (Reason: migraine headache) Qty: 14 3RF Rx Instructions: as a single dose; may repeat once in >=2 hours after first dose if needed Gamunex-C 10 gram/100 mL (10 %) solution 100 ml subcut WEEKLY Rx Instructions: TAKES ON TUESDAYS ropinirole 1 mg tablet 1 mg PO HS Rx Instructions: TAKE 1 TABLET BY MOUTH 1-2 HOURS BEFORE BEDTIME omeprazole 40 mg capsule,delayed release(DR/EC) 40 mg PO DAILY Rx Instructions: TAKE 1 CAPSULE BY MOUTH EVERY DAY topiramate 25 mg capsule, sprinkle 25 mg PO BID Rx Instructions: TAKE 1 CAPSULES BY MOUTH TWICE A DAY ferrous sulfate 325 mg (65 mg iron) tablet 325 mg PO HS diltiazem HCl 120 mg capsule,extended release 24hr 120 mg PO DAILY Rx Instructions: TAKE 1 CAPSULE BY MOUTH EVERY DAY ergocalciferol (vitamin D2) 1,250 mcg (50,000 unit) capsule 1,250 mcg PO [id number] Rx Instructions: NEEDS ON WEDNESDAY tiotropium bromide [Spiriva with HandiHaler] 18 mcg capsule, w/inhalation device 18 mcg inhalation DAILY Rx Instructions: INHALE THE CONTENTS OF 1 CAPSULE BY MOUTH ONCE DAILY venlafaxine 150 mg capsule,extended release 24hr 150 mg PO DAILY Rx Instructions: TAKE 1 CAPSULE BY MOUTH EVERY DAY prednisone 20 mg Tablet 40 mg PO DAILY@0800 Qty: 8 0RF guaifenesin [Mucus Relief ER] 600 mg Tablet Extended Release 12hr 1,200 mg PO Q12HR Qty: 14 0RF doxycycline hyclate 100 mg capsule 100 mg PO DAILY Qty: 10 0RF Daliresp 500 mcg tablet 500 mcg PO DAILY 90 Days Qty: 90 3RF Rx Instructions: TAKE 1 TABLET BY MOUTH DAILY fluticasone propion-salmeterol [Wixela Inhub] 250-50 mcg/dose blister with device 1 inh inhalation Q12H 90 Days Qty: 180 3RF Rx Instructions: rinse and spit cetirizine 10 mg tablet 10 mg PO DAILY Qty: 90 0RF Prolia 60 mg/mL syringe 60 mg subcut [id number] Qty: 1 1RF Rx Instructions: DUE IN 2024 ondansetron 4 mg tablet,disintegrating 4 mg PO Q8H PRN (Reason: nausea and vomiting) Qty: 60 1RF levalbuterol HCl 1.25 mg/3 mL solution for nebulization See Rx Instructions .ROUTE .COMPLEX Qty: 270 3RF Dose Instruction: INHALE THE CONTENTS OF 1 VIAL VIA NEBULIZER 3 TIMES DAILY NEEDED FOR SHORTNESS OF BREATH/WHEEZING Rx Instructions: INHALE THE CONTENTS OF 1 VIAL VIA NEBULIZER 4 TIMES DAILY NEEDED FOR SHORTNESS OF BREATH/WHEEZING potassium chloride 20 mEq tablet extended release 20 meq PO DAILY Qty: 90 1RF lisinopril 10 mg tablet 10 mg PO DAILY Qty: 90 1RF buspirone 15 mg tablet See Rx Instructions .ROUTE .COMPLEX Qty: 180 1RF Dose Instruction: TAKE 1 TABLET BY MOUTH TWICE A DAY Rx Instructions: TAKE 1 TABLET BY MOUTH TWICE A DAY atorvastatin 40 mg tablet See Rx Instructions .ROUTE .COMPLEX Qty: 90 1RF Dose Instruction: TAKE 1 TABLET BY MOUTH EVERY DAY Rx Instructions: TAKE 1 TABLET BY MOUTH EVERY DAY montelukast 10 mg tablet See Rx Instructions .ROUTE .COMPLEX Qty: 90 1RF Dose Instruction: TAKE 1 TABLET BY MOUTH EVERY DAY Rx Instructions: TAKE 1 TABLET BY MOUTH EVERY DAY levothyroxine 88 mcg tablet See Rx Instructions .ROUTE .COMPLEX Qty: 90 1RF Dose Instruction: TAKE 1 TABLET BY MOUTH EVERY DAY Rx Instructions: TAKE 1 TABLET BY MOUTH EVERY DAY Follow-up/Referrals: Sonia Ugalde ROOM CLERK-C [Primary Care Provider] - 1 Week Time of Disposition: 16:32
== END 2024-04-04 16:40 | disposition home or self-care (01) ==
PROVIDERS: Emergency Provider Nurse Practitioner Family; PCP Nurse Practitioner
DX: J44.1 Chronic obstructive pulmonary disease with (acute) exacerbation (principal); F41.8 Other specified anxiety disorders; J96.10 Chronic respiratory failure, unspecified whether with hypoxia or hypercapnia; Z99.81 Dependence on supplemental oxygen; I10 Essential (primary) hypertension; K21.9 Gastro-esophageal reflux disease without esophagitis; E78.2 Mixed hyperlipidemia; E55.9 Vitamin D deficiency, unspecified; Z85.42 Personal history of malignant neoplasm of other parts of uterus; Z87.891 Personal history of nicotine dependence
CPT/HCPCS: 99213; G0463

== ENCOUNTER 2024-05-15 19:23 | Emergency (ER) | payer MEDICARE, MEDICAID, SELFPAY ==
--- NOTE | ~2024-05-15 | XR_ITS ---
EXAMINATION: XR chest 2V Exam Date/Time: 05/15/2024 21:25 WARNING COORDINATION METEOROLOGIST HISTORY: sob Comparison: 03/19/2024; CT chest 08/02/2023. RESULT: Lines, tubes, and devices: None. Lungs and pleura: Subsegmental, peripheral right lower lung airspace disease. Mild right lateral cos tophrenic angle blunting. Bibasilar scar/atelectasis. Emphysematous change. Cardiomediastinal silhouette: Stable. Other: No acute osseous or upper abdominal finding. IMPRESSION: Subsegmental right lower lung atelectasis/consolidation. Trace right pleural effusion versus chronic pleural blunting. Reviewed, dictated and finalized at location K. ING COORDINATION METEOROLOGIST IMPRESSION: Subsegmental right lower lung atelectasis/consolidation. Trace right pleural ef fusion versus chronic pleural blunting.
--- OUTSIDE RECORDS SUMMARY | 2024-05-15 19:26 | XMS_ITS | CONTINUITY OF CARE DOCUMENT ---
Author Name trice carnes Address Unknown Organization [facility] Address [address] [place] [address] Phone [phone] Care Team Providers Care Corporate Pilot Name Role Phone Adithya Ramsay MD Unavailable SOILA TRAN MD Unavailable [phone] JOSE J BOSWELL DO Unavailable [phone] INSURANCE PROVIDERS Payer name Policy type / Coverage type [place] red democrat [employer] Medicaid 1 [id number] [place] [employer] Medicare [id number]
--- OUTSIDE RECORDS SUMMARY | 2024-05-15 19:26 | XMS_ITS | Patient Health Summary ---
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 in alignment. Postsurgical changes of the right acetabulum are unchanged. The left hip and sacroiliac joints are grossly normal. Edited by Petrona Betancourt on 11/02/2022 11:13 AM > Interpreting Provider: Ilia Yip MD on 11/02/2022 11:24 AM Procedure Note Ilia Yip MD - 11/02/2022 PROCEDURE: XR PELVIS 1 OR 2VW, DATE/TIME OF EXAM: 11/02/2022 11:06 AM, LOCATION [facility] INDICATION: M25.551: Pain in right hip HISTORY: Right hip surgery. FINDINGS: Since 09/09/2022, there has been right hip arthroplasty. The prosthetic elements appear normal in alignment. Postsurgical changes of the right acetabulum are unchanged. The left hip and sacroiliac joints are grossly normal. Edited by Petrona Betancourt on 11/02/2022 11:13 AM > Interpreting Provider: Ilia Yip MD on 11/02/2022 11:24 AM Bhaskar Mack MD DIAGNOSTIC IMAGING ORDERABLES * Neuraxial Block (11/02/2022 8:42 AM CDT) Narrative Stephan Villa APRN-BARREL DRUM CUTTER - 11/02/2022 8:42 AM CDT Stephan Villa APRN-BARREL DRUM CUTTER ? 11/02/2022 ??8:46 AM Neuraxial Block Note ?? Pre-Procedure: ?? Procedure Name: ??Neuraxial Block Patient Location: ??Holding Area Indications: ??surgical anesthesia Pre-Anesthetic Checklist: ??Patient identified, IV Checked, Risks and benefits discussed, Surgical consent verified, Monitors and equipment, Site examined, Pre-op evaluation done, Time-out performed, Informed consent obtained, Questions answered/anesthesia questions answered and Allergies reviewed Anticoagulation/ Anti-thrombosis status confirmed? ??Yes Supplemental O2: ??nasal cannula Monitors: ??BP, continuous pluse ox and EKG Patient Condition: ??sedated, meaningful contact maintained throughout procedure Patient Sedated? ??Yes Procedure: ?? Block Type: ??Spinal Prep: ??Betadine Sterile Field: ??mask, cap/hat, sterile established and sterile gloves Approach: ??midline Skin was localized? ??Yes Skin localized with: lidocaine (XYLOCAINE) 1 % injection - Infiltration 3 mL - 11/02/2022 7:40:00 AM Spinal Block: ?? Needle Type: ??spinal needle Needle Gauge: ??25 Needle Length: ??90 mm Placement Site: ??L1-2 Number of Attempts: ??1 CSF: ??free flow, aspiration before injection, aspiration during injection, aspiration after injection Local anesthetics used? ??No Degree of difficulty: ??none Procedure Tolerance: ??tolerated well Sensory Level: ??T10 Motor Blockade: ??Yes Position post procedure: ??supine Start Time: ??11/02/2022 7:40 AM End Time: ??11/02/2022 7:45 AM Total Time: ??5 Staff: ?? Anesthesia Provider: ??Stephan Villa, YONATAN-BARREL DRUM CUTTER ?? - ?? performed the procedure Provider #1: ??Bhaskar Rice, DO ?? - ??performed the procedure Bhaskar Rice DO GENERAL ANESTHESIA O RDERABLES * POTASSIUM BLOOD (11/02/2022 6:08 AM CDT) Potassium 3.9 3.5 - 5.1 mmol/L 11/02/2022 6:44 AM CDT [facility] Blood BLOOD SPECIMEN / Unknown Venipuncture / Unknown 11/02/2022 6:08 AM CDT 11/02/2022 6:13 AM CDT Bhaskar Rice DO LAB - CHEMISTRY REYNA CUMMINS [facility] [address] [place] [address] * URINE MICROSCOPIC ONLY REFLEX TO CULTURE (10/30/2022 1:36 PM CDT) Only the most recent of3 resultswithin the time period is included. Reflex Status Culture to follow 10/30/2022 1:54 PM CDT [facility] RBC UA 0-2 0 - 5 # /hpf 10/30/2022 1:54 PM CDT [facility] WBC UA 0-5 0 - 5 # /hpf 10/30/2022 1:54 PM CDT [facility] Bacteria UA None Seen None Seen 10/30/2022 1:54 PM CDT [facility] Squamous Epithelial Cells 0-2 0 - 5 /hpf 10/30/2022 1:54 PM CDT [facility] Mucus UA 1+ /LPF 10/30/2022 1:54 PM CDT [facility] Urine URINE SPECIMEN OBTAINED BY CLEAN CATCH PROCEDURE / Unknown Collection / Unknown 10/30/2022 1:36 PM CDT 10/30/2022 1:38 PM CDT Narrative [facility] - 10/30/2022 1:54 PM CDT Bhaskar Mack MD LAB - URINALYSIS OR DERABLES [facility] [address], [place] [id number] * (ABNORMAL) URINALYSIS REFLEX MICROSCOPIC REFLEX CULTURE (10/30/2022 1:36 PM CDT) Only the most recent of3 resultswithin the time period is included. Color UA Yellow Straw, Yellow 10/30/2022 1:50 PM CDT [facility] Clarity UA Clear Clear 10/30/2022 1:50 PM CDT [facility] Glucose UA Negative Negative 10/30/2022 1:50 PM CDT [facility] Bilirubin UA Negative Negative 10/30/2022 1:50 PM CDT [facility] Ketone UA Trace(A) Negative 10/30/2022 1:50 PM CDT [facility] Specific Hudgins UA 1.018 1.005 - 1.030 10/30/2022 1:50 PM CDT [facility] Blood UA Negative Negative 10/30/2022 1:50 PM CDT [facility] pH UA 5.0 5.0 - 8.0 pH 10/30/2022 1:50 PM CDT [facility] Protein UA Negative Negative 10/30/2022 1:50 PM CDT [facility] Urobilinogen UA 2.0(A) Negative mg/dL 10/30/2022 1:50 PM CDT [facility] Nitrite UA Negative Negative 10/30/2022 1:50 PM CDT [facility] Leukocyte UA Trace(A) Negative 10/30/2022 1:50 PM CDT [facility] Urine Microscopy Urine microscopy to follow 10/30/2022 1:50 PM CDT [facility] Reflex Status Culture to follow 10/30/2022 1:50 PM CDT [facility] Urine URINE SPECIMEN OBTAINED BY CLEAN CATCH PROCEDURE / Unknown Collection / Unknown 10/30/2022 1:36 PM CDT 10/30/2022 1:38 PM CDT Narrative [facility] - 10/30/2022 1:50 PM CDT Ascorbic Acid can cause false negative urine strip tests for blood, glucose, nitrite, and bilirubin. Bhaskar Mack MD LAB - URINALYSIS OR DERABLES Performing Organization Address City/[facility]/ZIP Co de Phone Number [facility] [address] [place] [address] * CULTURE URINE (10/30/2022 1:36 PM CDT) Only the most recent of3 resultswithin the time period is included. Pathologist [facility] Culture Urine <10,000 CFU/mL urogenital ming LORENZA 10/31/2022 11:05 PM CDT [facility] MICROBIOLOGY Urine URINE SPECIMEN OBTAINED BY CLEAN CATCH PROCEDURE / Unknown Collection / Unknown 10/30/2022 1:36 PM CDT 10/30/2022 1:38 PM CDT Bhaskar Mack MD LAB - MICROBIOLOGY ORDERABLES Performing Organization Address [facility] Co de Phone Number [facility] MICROBIOLOGY [address] [place] [address], [facility] [phone] * CULTURE MSSA/MRSA (10/16/2022 12:36 PM CDT) Pathologist [facility] Culture Negative for Staphylococcus aureus (MRSA/MSSA) 10/18/2022 1:29 PM CDT [facility] MICROBIOLOGY Microbiology SPECIMEN FROM NASAL FOSSAE / Unknown Collection / Unknown 10/16/2022 12:36 PM CDT 10/16/2022 12:48 PM CDT Bhaskar Mack MD LAB - MICROBIOLOGY ORDERABLES Performing Organization Address City/[facility]/ZIP Co de Phone Number [facility] MICROBIOLOGY [address] [place] [address], [facility] [phone] * TYPE + SCREEN PANEL (10/16/2022 12:35 PM CDT) Only the most recent of3 resultswithin the time period is included. ABO Rh B POS 10/16/2022 1:37 PM CDT [facility] Comment:History checked. Antibody Screen NEG 1:37 PM CDT [facility] Blood Bank BLOOD SPECIMEN / Unknown Venipuncture / Unknown 10/16/2022 12:35 PM CDT 10/16/2022 12:48 PM CDT Bhaskar Mack MD LAB - BLOOD BANK OR DERABLES Performing Organization Address City/[facility]/ZIP Co de Phone Number [facility] [address] [place] [address] * TRANSFERRIN (10/16/2022 12:33 PM CDT) [facility] Transferrin 253 173 - 360 mg/dL 10/16/2022 1:11 PM CDT [facility] Blood BLOOD SPECIMEN / Unknown Venipuncture / Unknown 10/16/2022 12:33 PM CDT 10/16/2022 12:48 PM CDT Bhaskar Mack MD LAB - CHEMISTRY ORD ERABLES Performing Organization Address [facility] Co de Phone Number [facility] [address] [place] [address] * HEMOGLOBIN A1C (10/16/2022 12:33 PM CDT) Only the most recent of2 resultswithin the time period is included. [facility] Hemoglobin A1c 4.9 <5.7 % 10/16/2022 3:12 PM CDT [facility] Estimated Average Glucose 94 mg/dL 10/16/2022 3:12 PM CDT [facility] Blood BLOOD SPECIMEN / Unknown Venipuncture / Unknown 10/16/2022 12:33 PM CDT 10/16/2022 12:48 PM CDT Narrative [facility] - 10/16/2022 3:12 PM CDT HbA1c Interpretation: Normal: < 5.7% Pre-diabetes: 5.7-6.4% Diabetes: Equal to or greater than 6.5% Test results diagnostic of diabetes should be repeated for confirmation. Treatment target values recommended by ADA and other clinical organizations should be used to evaluate metabolic control in patients. This test should not replace glucose testing for patients with Type 1 diabetes, pediatric patients, or women. ??Falsely low HbA1c results may be observed in patients with clinical conditions that shorten erythrocyte life span or decrease mean erythrocyte age such as the presence of unstable hemoglobin variants, elevated hemoglobin F level or other causes of hemolytic anemia. ??HbA1c may not accurately reflect glycemic control when clinical conditions that affect erythrocyte survival are present. ??Severe Iron deficiency anemia may yield falsely high results. ??Hemoglobin A1c assay should not be used to diagnose or monitor diabetes in patients with malignancy, recent blood transfusion, chronic kidney or liver disease. ?? This method may yield falsely low results when hemoglobin (HbF) exceeds 5% in the specimen. The [employer] Nurse Practitioner assay for the measurement of HbA1c is a National Glycohemoglobin Standardization Program (NGSP) certified method. Bhaskar Mack MD LAB - CHEMISTRY ORD VSE EVAKUATORY ROSSIIMATTHEW Performing Organization Address [facility] Co de Phone Number [facility] [address] [place] [address] * FRUCTOSAMINE (10/16/2022 12:33 PM CDT) [facility] Fructosamine 216 205 - 285 umol/L 10/17/2022 4:28 PM CDT [facility] ([facility]) Comment: INTERPRETIVE INFORMATION: ??Fructosamine Variations in levels of serum proteins (albumin and immunoglobulins) may affect fructosamine results. Performed By: [employer] [address] [place] [address] Auto Dismantler: Anish Shepherd MD, PhD Blood BLOOD SPECIMEN / Unknown Venipuncture / Unknown 10/16/2022 12:33 PM CDT 10/16/2022 12:48 PM CDT Bhaskar Mack MD LAB - CHEMISTRY ORD CARLOS Performing Organization Address [facility]/ZIP Co de Phone Number [facility] ([facility]) [address] [place] [address] * (ABNORMAL) CBC W AUTO DIFFERENTIAL (10/16/2022 12:33 PM CDT) Only the most recent of3 resultswithin the time period is included. WBC 7.2 4.4 - 10.7 x10E9/L 10/16/2022 12:57 PM [facility] WBC Corrected 10/16/2022 12:57 PM [facility] RBC 4.21 3.80 - 5.20 x10E12/L 10/16/2022 12:57 PM [facility] Hemoglobin 13.6 12.0 - 15.6 gm/dL 10/16/2022 12:57 PM [facility] Hematocrit 40.8 35.9 - 45.5 % 10/16/2022 12:57 PM [facility] MCV 96.9 80.7 - 98.3 fl 10/16/2022 12:57 PM [facility] MCH 32.3 26.7 - 34.0 pg 10/16/2022 12:57 PM [facility] MCHC 33.3 30.8 - 35.9 gm/dL 10/16/2022 12:57 PM [facility] Platelet Count 265 153 - 416 x10E9/L 10/16/2022 12:57 PM [facility] RDW-CV 13.1 12.1 - 14.9 % 10/16/2022 12:57 PM [facility] MPV 10.6 9.4 - 12.9 fl 10/16/2022 12:57 PM [facility] Neutrophils % 74.6(H) 44.0 - 73.0 % 10/16/2022 12:57 PM [facility] Lymphocytes % 15.2(L) 20.0 - 43.0 % 10/16/2022 12:57 PM [facility] Monocytes % 7.8 5.0 - 13.0 % 10/16/2022 12:57 PM CDT [facility] Eosinophils % 1.5 0.0 - 6.0 % 10/16/2022 12:57 PM [facility] Basophils % 0.6 0.0 - 2.0 % 10/16/2022 12:57 PM CDT [facility] Immature Granulocytes 0.3 0 - 1 % 10/16/2022 12:57 PM [facility] Neutrophil Absolute 5.34 2.01 - 7.14 x10E9/L 10/16/2022 12:57 PM CDT [facility] Lymphocytes Absolute 1.09 1.07 - 3.94 x10E9/L 10/16/2022 12:57 PM CDT [facility] Monocytes Absolute 0.56 0.26 - 1.07 x10E9/L 10/16/2022 12:57 PM CDT [facility] Eosinophils Absolute 0.11 0 - 0.47 x10E9/L 10/16/2022 12:57 PM CDT [facility] Basophils Absolute 0.04 0 - 0.08 x10E9/L 10/16/2022 12:57 PM CDT [facility] Immature Granulocytes Absolute 0.02 0.00 - 0.06 x10E9/L 10/16/2022 12:57 PM CDT [facility] nRBC Auto 0 /100 WBC 10/16/2022 12:57 PM CDT [facility] Blood BLOOD SPECIMEN / Unknown Venipuncture / Unknown 10/16/2022 12:33 PM CDT 10/16/2022 12:48 PM CDT Bhaskar Mack MD LAB - HEMATOLOGY OR DERABLES Performing Organization Address City/State/[facility] Co de Phone Number [facility] [address] [place] [address] * (ABNORMAL) COMPREHENSIVE METABOLIC PANEL (10/16/2022 12:33 PM CDT) Only the most recent of5 resultswithin the time period is included. [facility] Glucose 91 70 - 105 mg/dL 10/16/2022 1:11 PM CDT [facility] Sodium 142 136 - 145 mmol/L 10/16/2022 1:11 PM CDT [facility] Potassium 3.6 3.5 - 5.1 mmol/L 10/16/2022 1:11 PM CDT [facility] Chloride 106 98 - 107 mmol/L 10/16/2022 1:11 PM CDT [facility] CO2 27 23 - 31 mmol/L 10/16/2022 1:11 PM CDT [facility] Calcium 9.1 8.4 - 10.4 mg/dL 10/16/2022 1:11 PM CDT [facility] Anion Gap 9 8 - 18 mmol/L 10/16/2022 1:11 PM CDT [facility] BUN 7(L) 9.8 - 20.1 mg/dL 10/16/2022 1:11 PM CDT [facility] Creatinine 0.71 0.57 - 1.11 mg/dL 10/16/2022 1:11 PM CDT [facility] Alkaline Phosphatase 143 40 - 150 U/L 10/16/2022 1:11 PM CDT [facility] ALT 17 0 - 61 U/L 10/16/2022 1:11 PM CDT [facility] AST 18 5 - 34 U/L 10/16/2022 1:11 PM CDT [facility] Protein Total 7.0 6.4 - 8.3 gm/dL 10/16/2022 1:11 PM CDT [facility] Albumin 4.2 3.2 - 4.6 gm/dL 10/16/2022 1:11 PM CDT [facility] Bilirubin Total 0.5 0.2 - 1.2 mg/dL 10/16/2022 1:11 PM CDT [facility] eGFR by CKD-EPI >90 >=90 mL/min/1.7 3 m2 10/16/2022 1:11 PM CDT [facility] Blood BLOOD SPECIMEN / Unknown Venipuncture / Unknown 10/16/2022 12:33 PM CDT 10/16/2022 12:48 PM CDT Bhaskar Mack MD LAB - CHEMISTRY ORD ERABLES Performing Organization Address City/State/[facility] Co de Phone Number [facility] [address] [place] [address] * XR PELVIS JUDET VIEWS (08/26/2022 10:55 AM CDT) Only the most recent of6 resultswithin the time period is included. Anatomical Region Laterality Modality Pelvis Radiographic Janie ging 08/26/2022 11:1 1 AM CDT Impressions 08/26/2022 11:39 AM CDT IMPRESSION: Redemonstrated internal fixation of a mildly displaced right acetabular fracture. Orthopedic hardware is intact and osseous alignment is unchanged from prior exam. Report dictated by Baldo Duong MD (cath lab radiology technician). Jaun Mitchell MD have personally reviewed and interpreted this examination/study. > Interpreting Provider: Jaun Leblanc MD on 08/26/2022 11:39 AM Narrative 08/26/2022 11:39 AM CDT PROCEDURE: ??XR PELVIS JUDET VIEWS, DATE/TIME OF EXAM: ??08/26/2022 10:55 AM, LOCATION ??[facility] INDICATION: S32.401A: Closed displaced fracture of right acetabulum, unspecified portion of acetabulum, initial encounter ([facility]) ADDITIONAL CLINICAL INFORMATION: Ordering Provider Reason For Exam: ??CLOSED DISPLACED RIGHT ACETABULUM FX COMPARISON: [facility] pelvic radiographs dated 07/15/2022 FINDINGS: Redemonstration of internal fixation of a mildly displaced right acetabular fracture. Orthopedic hardware is intact and osseous alignment is unchanged from prior exam. Moderate right hip joint space narrowing is again noted. Procedure Note Jaun Leblanc MD - 08/26/2022 PROCEDURE: XR PELVIS JUDET VIEWS, DATE/TIME OF EXAM: 08/26/2022 10:55AM, LOCATION [facility] INDICATION: S32.401A: Closed displaced fracture of right acetabulum, unspecified portion of acetabulum, initial encounter ([facility]) ADDITIONAL CLINICAL INFORMATION: Ordering Provider Reason For Exam: CLOSED DISPLACED RIGHT ACETABULUM FX COMPARISON: [facility] pelvic radiographs dated 07/15/2022 FINDINGS: Redemonstration of internal fixation of a mildly displaced rightacetabular fracture. Orthopedic hardware is intact and osseous alignment isunchanged from prior exam. Moderate right hip joint space narrowing is againnoted. IMPRESSION: Redemonstrated internal fixation of a mildly displaced right acetabular fracture. Orthopedic hardware is intact and osseous alignment isunchanged from prior exam. Report dictated by Baldo Duong MD (cath lab radiology technician). Jaun Mitchell MD have personally reviewed and interpreted this examination/study. > Interpreting Provider: Jaun Leblanc MD on 08/26/2022 11:39 AM Luis Daniel Roca MD DIAGNOSTIC IMAGING O RDERABLES * CARDIAC EKG ORDER (05/13/2022 4:46 PM AUTOMATION CONTROL TECHNICIAN) Only the most recent of2 resultswithin the time period is included. Narrative 05/13/2022 4:46 PM AUTOMATION CONTROL TECHNICIAN Ordered by an unspecified provider. Scanned Document CARDIAC SERVICES ORD ERABLES * (ABNORMAL) CBC W/O DIFFERENTIAL (05/10/2022 4:19 AM AUTOMATION CONTROL TECHNICIAN) Only the most recent of8 resultswithin the time period is included. WBC 7.0 3.5 - 10.5 10? 3 /uL 05/10/2022 2:56 PM [facility] RBC 3.31(L) 3.80 - 5.20 10? 6 /uL 05/10/2022 2:56 PM [facility] Hemoglobin 9.9(L) 12.0 - 15.6 g/dL 05/10/2022 2:56 PM [facility] Hematocrit 31.0(L) 35.0 - 45.0 % 05/10/2022 2:56 PM [facility] MCV 93.7 80.7 - 98.3 fL 05/10/2022 2:56 PM [facility] MCH 29.9 26.7 - 34.0 pg 05/10/2022 2:56 PM [facility] MCHC 31.9 30.8 - 35.9 g/dL 05/10/2022 2:56 PM [facility] RDW-SD 47.1 36.0 - 50.0 fL 05/10/2022 2:56 PM [facility] RDW-CV 13.8 11.2 - 14.8 % 05/10/2022 2:56 PM [facility] Platelet Count 519(H) 150 - 400 10? 3 /uL 05/10/2022 2:56 PM [facility] MPV 10.1 9.4 - 12.9 fL 05/10/2022 2:56 PM [facility] nRBC Absolute 0.00 0 10? 3 /uL 05/10/2022 2:56 PM [facility] nRBC Auto 0.0 0 /100 WBC 05/10/2022 2:56 PM [facility] Blood BLOOD SPECIMEN / Unknown Venipuncture / Unknown 05/10/2022 4:19 AM AUTOMATION CONTROL TECHNICIAN 05/10/2022 4:53 AM AUTOMATION CONTROL TECHNICIAN Margarita Espinal MD LAB - HEMATOLOGY ORD CARLOS Performing Organization Address City/[facility]/ZIP Co de Phone Number [address] [address], [place] [phone] * PHOSPHORUS BLOOD (05/10/2022 4:19 AM AUTOMATION CONTROL TECHNICIAN) Only the most recent of3 resultswithin the time period is included. Phosphorus 3.7 2.9 - 5.1 mg/dL 05/10/2022 5:50 AM AUTOMATION CONTROL TECHNICIAN [facility] Blood BLOOD SPECIMEN / Unknown Venipuncture / Unknown 05/10/2022 4:19 AM AUTOMATION CONTROL TECHNICIAN 05/10/2022 5:02 AM AUTOMATION CONTROL TECHNICIAN Margarita Espinal MD LAB - CHEMISTRY REYNA CUMMINS Performing Organization Address [facility] Co de Phone Number [address] [address], [place] [phone] * MAGNESIUM BLOOD (05/10/2022 4:19 AM AUTOMATION CONTROL TECHNICIAN) Only the most recent of3 resultswithin the time period is included. Magnesium 1.7 1.6 - 2.6 mg/dL 05/10/2022 5:50 AM AUTOMATION CONTROL TECHNICIAN [facility] Blood BLOOD SPECIMEN / Unknown Venipuncture / Unknown 05/10/2022 4:19 AM AUTOMATION CONTROL TECHNICIAN 05/10/2022 5:02 AM AUTOMATION CONTROL TECHNICIAN Margarita Espinal MD LAB - CHEMISTRY REYNA CUMMINS Performing Organization Address [facility]/ZIP Co de Phone Number [address] [address], [place] [phone] * (ABNORMAL) BASIC METABOLIC PANEL (CALCIUM TOTAL) (05/02/2022 3:43 AM AUTOMATION CONTROL TECHNICIAN) Only the most recent of7 resultswithin the time period is included. BUN 8 7 - 26 mg/dL 05/02/2022 4:34 AM [facility] Creatinine 0.56 0.56 - 0.96 mg/dL 05/02/2022 4:34 AM [facility] Sodium 141 136 - 145 mmol/L 05/02/2022 4:34 AM [facility] Potassium 3.2(L) 3.5 - 4.5 mmol/L 05/02/2022 4:34 AM [facility] Chloride 101 98 - 107 mmol/L 05/02/2022 4:34 AM [facility] CO2 31(H) 22 - 29 mmol/L 05/02/2022 4:34 AM [facility] Glucose 156(H) 70 - 115 mg/dL 05/02/2022 4:34 AM [facility] Calcium 8.6 8.4 - 10.2 mg/dL 05/02/2022 4:34 AM [facility] Anion Gap 12 8 - 18 05/02/2022 4:34 AM [facility] BUN/Creatinine Ratio 14 7 - 23 05/02/2022 4:34 AM [facility] Osmolality Calculated 294 270 - 300 mOsm/kg 05/02/2022 4:34 AM [facility] eGFR by CKD-EPI >90 >=90 mL/min/1.7 3 m2 05/02/2022 4:34 AM [facility] Blood BLOOD SPECIMEN / Unknown Lab Venipuncture / Unknown 05/02/2022 3:43 AM [employer]ATION CONTROL TECHNICIAN 05/02/2022 4:04 AM AUTOMATION CONTROL TECHNICIAN Sonia Covarrubias MD LAB - CHEMISTRY ORDE [facility] Organization Address City/State/ZIP Co de Phone Number [facility] [address] [place] [address], [facility] [phone] * PREPARE (CROSSMATCH) RBC UNIT(S), 2 Units (04/29/2022 1:17 AM AUTOMATION CONTROL TECHNICIAN) Only the most recent of3 resultswithin the time period is included. Unit Description N/A [facility] BLOOD BANK LAB Blood Bank BLOOD SPECIMEN / Unknown 04/25/2022 3:26 AM AUTOMATION CONTROL TECHNICIAN Imtiaz Aguirre MD LAB - BLOOD BANK OR DERABLES Performing Organization Address City/[facility]/ZIP Co de Phone Number [facility] B[facility]OD [facility] LAB [address] [place] [address], [place] [phone] * [place] KADIE SURGERY (04/27/2022 9:32 AM AUTOMATION CONTROL TECHNICIAN) Narrative [facility] RADIOLOGY - 04/27/2022 9:33 AM AUTOMATION CONTROL TECHNICIAN Fluoroscopy was used for this exam in the OR. Please see the Operative report. Luis Daniel Roca MD FLUOROSCOPY ORDERABL ES Performing Organization Address [facility]/ZIP Co de Phone Number [facility] RADIOLOG[facility] * ETT LINE PERFORMABLE (04/27/2022 7:30 AM AUTOMATION CONTROL TECHNICIAN) Narrative Peter Monroy MD - 04/27/2022 7:30 AM AUTOMATION CONTROL TECHNICIAN Peter Monroy MD ? 04/27/2022 ??8:01 AM Endotracheal Tube Placement: ? Patient Location: OR. Intubation Event Date/Time: ??04/27/2022 7:30 AM Procedure: intubation ([id number]). Procedure Section: ?? Induction: standard IV Patient Position: ??sniffing Mask Ventilation: easy. Blade Type: Chris Blade Size: 3 Laryngoscopy View: grade 1 (full cords) Intubation Adjuncts: cricoid pressure Tube: endotracheal tube Placement: oral Tube Size (MM): 7 Depth of Insertion (CM): 22 Measured From: lips Cuff Inflated With: air Number of Attempts: 1. Placement Verified By: direct visualization, bilateral breath sounds, chest auscultation and CO2 monitor Tube secured with: ??adhesive tape. Dentition unchanged? ??Yes Difficult Airway? ??No. Procedure Start Time: 04/27/2022 7:30 AM. Procedure End Time: 04/27/2022 7:31 AM. Procedure Total Time: 1 ??minutes. Staff Section ? Anesthesia Provider: Peter Monroy MD, Performed the procedure ? Provider #1: Pj Noble MD. Pj Noble MD GENERAL ANESTHESIA O RDERABLES * TSH REFLEX FREE T4 (04/26/2022 2:29 AM AUTOMATION CONTROL TECHNICIAN) TSH 2.807 0.350 - 4.940 uIU/mL 04/26/2022 4:34 AM AUTOMATION CONTROL TECHNICIAN [facility] Blood BLOOD SPECIMEN / Unknown Lab Venipuncture / Unknown 04/26/2022 2:29 AM AUTOMATION CONTROL TECHNICIAN 04/26/2022 3:45 AM AUTOMATION CONTROL TECHNICIAN Chanel Hartman [employer] IRONWORKER-SURGICAL SALES REPRESENTATIVE LAB - CHEMISTRY O RDERABLES [facility] [address] [place] [address], [facility] [phone] * Moderate Sedation (04/25/2022 6:41 AM AUTOMATION CONTROL TECHNICIAN) Narrative Staci Henriquez MD - 04/25/2022 6:41 AM AUTOMATION CONTROL TECHNICIAN Staci Henriquez MD ? 04/25/2022 ??6:44 AM Moderate Sedation Date/Time: 04/25/2022 6:41 AM Performed by: Staci Henriquez MD Authorized by: Staci Henriquez MD Consent: ??Consent obtained: ??Written and verbal ??Consent given by: ??Patient ??Risks discussed: ??Dysrhythmia, inadequate sedation, nausea, prolonged hypoxia resulting in organ damage, respiratory compromise necessitating ventilatory assistance and intubation, vomiting, prolonged sedation necessitating reversal and allergic reaction Hyndman protocol: ??Procedure explained and questions answered to patient or proxy's satisfaction: yes ?Relevant documents present and verified: yes ?Test results available: yes ?Imaging studies available: yes ?Required blood products, implants, devices, and special equipment available: yes ?Site/side marked: yes ?Immediately prior to procedure, a time out was called: yes ?Patient identity confirmed: ??Verbally with patient, arm band, provided demographic data and hospital-assigned identification number Indications: ??Procedure performed: ??Fracture reduction ??Procedure necessitating sedation performed by: ??Different physician ??Intended level of sedation: ??Moderate Pre-sedation assessment: ??Time since last food or drink: ??6 hours ??ASA classification: class 3 - patient with severe systemic disease ?Mouth opening: ??3 or more finger widths ??Thyromental distance: ??3 finger widths ??Mallampati score: ??II - soft palate, uvula, fauces visible ??Neck mobility: normal ?Pre-sedation assessments completed and reviewed: airway patency, anesthesia/sedation history, cardiovascular function, hydration status, mental status, nausea/vomiting, pain level, respiratory function and temperature ?History of difficult intubation: no ?Pre-sedation assessment completed: ??04/25/2022 6:15 AM Immediate pre-procedure details: ??Reassessment: Patient reassessed immediately prior to procedure ?Reviewed: vital signs, relevant labs/tests and NPO status ?Verified: bag valve mask available, emergency equipment available, intubation equipment available, IV patency confirmed and oxygen available ?? Procedure details (see MAR for exact dosages):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 are midline, proportionate to the sulci. There is no extraaxial hematoma. There is no subarachnoid bleed .The basilar cisterns are preserved. Normal cruz-white matter differentiation is present. No CT evidence of mass effect or midlineshift. No changes of acute large territory stroke seen. Visualized portions of paranasal sinuses demonstrate a 2 cm rightmaxillary sinus mucous retention cyst with tiny air-fluid level. The mastoid air cells are clear. The skull is grossly intact, with no depressed skull fracture seen. IMPRESSION: No intracranial bleed or skull fracture. Right maxillary sinus disease, with 2 cm mucous retention cyst. A preliminary report was submitted by teleradiology at the time of the study. > Interpreting Provider: Lizzeth Chaparro MD on 04/25/2022 9:52 AM Yusuf Bragg MD CT ORDERABLES * PTT (04/24/2022 10:33 PM AUTOMATION CONTROL TECHNICIAN) PTT 29.7 23.0 - 38.4 sec 04/24/2022 11:18 PM AUTOMATION CONTROL TECHNICIAN -[facility] Blood BLOOD SPECIMEN / Unknown Venipuncture / Unknown 04/24/2022 10:33 PM AUTOMATION CONTROL TECHNICIAN 04/24/2022 11:03 PM AUTOMATION CONTROL TECHNICIAN Narrative -[facility] - 04/24/2022 11:18 PM AUTOMATION CONTROL TECHNICIAN Heparin Therapeutic Range for PTT: ??69.0 - 110.0 seconds. Yusuf Bragg MD LAB - COAGULATION OR DERABLES [facility] [address] [place] [address] * PT-INR (04/24/2022 10:33 PM AUTOMATION CONTROL TECHNICIAN) PT 12.6 12.1 - 14.8 sec 04/24/2022 11:17 PM AUTOMATION CONTROL TECHNICIAN -[facility] INR 0.9 0.9 - 1.1 04/24/2022 11:17 PM AUTOMATION CONTROL TECHNICIAN -[facility] Blood BLOOD SPECIMEN / Unknown Venipuncture / Unknown 04/24/2022 10:33 PM AUTOMATION CONTROL TECHNICIAN 04/24/2022 11:03 PM AUTOMATION CONTROL TECHNICIAN Narrative [facility] - 04/24/2022 11:17 PM AUTOMATION CONTROL TECHNICIAN Conventional Warfarin Anticoagulant Therapy: INR Reference Range: ??2.0-3.0 Intensive Warfarin Anticoagulant Therapy: INR Reference Range: ? 2.5-3.5 Yusuf Bragg MD LAB - COAGULATION OR DERABLES [facility] [address] [place] [id number] * LACTIC ACID BLOOD (04/24/2022 10:33 PM AUTOMATION CONTROL TECHNICIAN) Lactic Acid 1.9 <=2 mmol/L 04/24/2022 11:16 PM AUTOMATION CONTROL TECHNICIAN -[facility] Blood BLOOD SPECIMEN / Unknown Venipuncture / Unknown 04/24/2022 10:33 PM AUTOMATION CONTROL TECHNICIAN 04/24/2022 11:03 PM AUTOMATION CONTROL TECHNICIAN Yusuf Bragg MD LAB - CHEMISTRY ORDE RABLES [facility] [address] [place] [id number] * Critical Care (04/24/2022 9:59 PM AUTOMATION CONTROL TECHNICIAN) Narrative Yusuf Bragg MD - 04/24/2022 9:59 PM AUTOMATION CONTROL TECHNICIAN Yusuf Bragg MD ? 04/25/2022 ??6:34 AM Critical Care Performed by: Yusuf Bragg MD Authorized by: Yusuf Bragg MD Critical care provider statement: ??Critical care time (minutes): ??45 ??Critical care time was exclusive of: ??Separately billable procedures and treating other patients and teaching time ??Critical care was necessary to treat or prevent imminent or life-threatening deterioration of the following conditions: ??Trauma ??Critical care was time spent personally by me on the following activities: ??Development of treatment plan with patient or surrogate, evaluation of patient's response to treatment, examination of patient, obtaining history from patient or surrogate, ordering and performing treatments and interventions, ordering and review of laboratory studies, ordering and review of radiographic studies, pulse oximetry, re-evaluation of patient's condition, review of old charts and discussions with consultants ??I assumed direction of critical care for this patient from another provider in my specialty: no ?Care discussed with: accepting provider at another facility ?? Yusuf Bragg MD PROCEDURE/MINOR SURG ICAL ORDERABLES * LAB HISTORICAL RESULTS-ONBASE (09/05/2015) Only the most recent of2 resultswithin the time period is included. 09/05/2015 Narrative [facility] - 09/06/2015 2:45 PM CDT Historical Provider LAB - CHEMISTRY O RDERABLES Performing Organization Address City/State/[facility] Co de Phone Number [facility] [address] [place] [address] * (ABNORMAL) CULTURE WOUND+GRAM STAIN (12/11/2013 6:55 PM CDT) Only the most recent of2 resultswithin the time period is included. Culture Wound ENTEROBACTER CLOACAE COMPLEX(A) [facility] Comment:Moderate Growth Ente robacter Cloacae Complex Culture Wound KLEBSIELLA PNEUMONIAE SSP PNEUMONIAE(A) [facility] Comment:Light Growth Klebsie lla Pneumoniae Ssp Pneumoniae Wound 12/11/2013 6:55 PM CDT 12/11/2013 9:15 PM CDT [facility] - 12/15/2013 3:44 PM CDT Emily#[id number] Nathan Loc/Rm/Bed: ED// Source: SKIN ABSCESS HAND Organism Antibiotic Method Susceptibility Enterobacter cloacae complex Amikacin SUSCEPTIBILITY <=2: Sensitive Enterobacter cloacae complex Ampicillin SUSCEPTIBILITY Enterobacter cloacae complex Ampicillin-sulbactam SUSCEPTIBILITY Enterobacter cloacae complex Cefepime SUSCEPTIBILITY <=1: Sensitive Enterobacter cloacae complex Ceftazidime SUSCEPTIBILITY <=1: Sensitive Enterobacter cloacae complex Ceftriaxone SUSCEPTIBILITY <=1: Sensitive Comment: This Bacterial species is known to produce a Chromosomal AmpC Inducible Beta-Lactamase. ??Isolates may become resistant to all Cephalosporins after initiation of therapy with Beta-Lactam Antimicrobials. Enterobacter cloacae complex Gentamicin SUSCEPTIBILITY <=1: Sensitive Enterobacter cloacae complex Imipenem SUSCEPTIBILITY <=0.25: Sensitive Enterobacter cloacae complex Levofloxacin SUSCEPTIBILITY <=0.12: Sensitive Enterobacter cloacae complex Piperacillin-tazobactam SUSCEPTIBILITY <=4: Sensitive Enterobacter cloacae complex Tobramycin SUSCEPTIBILITY <=1: Sensitive Enterobacter cloacae complex Trimethoprim-sulfamethoxaz ole SUSCEPTIBILITY <=20: Sensitive Klebsiella pneumoniae ssp pneumoniae Amikacin SUSCEPTIBILITY <=2: Sensitive Klebsiella pneumoniae ssp pneumoniae Ampicillin SUSCEPTIBILITY >=32: Resistant Klebsiella pneumoniae ssp pneumoniae Ampicillin-sulbactam SUSCEPTIBILITY 4: Sensitive Klebsiella pneumoniae ssp pneumoniae Cefepime SUSCEPTIBILITY <=1: Sensitive Klebsiella pneumoniae ssp pneumoniae Ceftazidime SUSCEPTIBILITY <=1: Sensitive Klebsiella pneumoniae ssp pneumoniae Ceftriaxone SUSCEPTIBILITY <=1: Sensitive Klebsiella pneumoniae ssp pneumoniae Gentamicin SUSCEPTIBILITY <=1: Sensitive Klebsiella pneumoniae ssp pneumoniae Imipenem SUSCEPTIBILITY <=0.25: Sensitive Klebsiella pneumoniae ssp pneumoniae Levofloxacin SUSCEPTIBILITY <=0.12: Sensitive Klebsiella pneumoniae ssp pneumoniae Piperacillin-tazobactam SUSCEPTIBILITY <=4: Sensitive Klebsiella pneumoniae ssp pneumoniae Tobramycin SUSCEPTIBILITY <=1: Sensitive Klebsiella pneumoniae ssp pneumoniae Trimethoprim-sulfamethoxaz ole SUSCEPTIBILITY <=20: Sensitive Klebsiella pneumoniae ssp pneumoniae Extended-Spectrum Beta-Lactamase SUSCEPTIBILITY NEG: - Historical Provider MD LAB - MICROBIOLOG Y ORDERABLES Performing Organization Address City/State/[facility] Co de Phone Number [address] [phone] * GRAM STAIN SMEAR (12/11/2013 6:55 PM CDT) Gram Stain Moderate Gram Negative bacilli [facility] Wound 12/11/2013 6:55 PM CDT 12/11/2013 9:15 PM CDT Narrative [facility] - 12/12/2013 10:40 AM CDT [id number] Nathan Loc//Bed: ED// Source: SKIN ABSCESS HAND Gram Stains are routinely screened for the presence of Polymorphonuclear Cells. Historical Provider MD LAB - MICROBIOLOG Y ORDERABLES [facility] [address] [phone] Care Teams As400 Administrator Relationship Specialty Start Date End Date Sonia Ugalde, STRUCTURAL STEEL IRONWORKER-SURGICAL SALES REPRESENTATIVE [address] [place] [address] PCP - General Nurse Practitioner Family 04/24/22
--- OUTSIDE RECORDS SUMMARY | 2024-05-15 19:26 | XMS_ITS | Clinical Summary ---
Author Organization [facility] Address [address] [facility] [place] [address] [place] [address] Care Team Providers Care Coverer Name Role Phone Sonia Ugalde NP Primary Care Provider [phone] Allergies Active Allergy Reactions Criticality Noted Date Comments Penicillins Swelling 05/12/2022 Sulfa Antibiotics Rash Low 05/12/2022 Medications acetaminophen (TYLENOL) 325 MG tabletIndications:P ain Take 650 mg by mouth every 6 (six) hours. Indications: Pain Active ipratropium-albuter ol (DUONEB) 0.5-2.5 (3) MG/3ML SolutionIndications :COPD, surveillance Take by nebulization every 6 (six) hours as needed. Indications: COPD, surveillance Active busPIRone (BUSPAR) 10 MG tabletIndications:D epressed Mood Take 15 mg by mouth 2 (two) times daily. Indications: Lowered Mood Active alendronate (FOSAMAX) 70 MG tabletIndications:A dvanced Bone Age Take 70 mg by mouth every 7 days. Indications: Advanced Bone Age Active atorvastatin (LIPITOR) 40 MG tabletIndications:H yperlipidemia Take 40 mg by mouth nightly at bedtime. Indications: High Amount of Fats in the Blood Active cetirizine (ZYRTEC) 10 MG tabletIndications:R hinitis Take 10 mg by mouth daily. Indications: Nose Inflammation Active vitamin D2, ergocalciferol, (DRISDOL) 93611 UNITS capsuleIndications: supplement Take 50,000 Units by mouth every 7 days. Indications: supplement Active ferrous sulfate, 65 mg elemental, 325 (65 FE) MG tabletIndications:I kandy Deficiency Take 325 mg by mouth daily with breakfast. Indications: Iron Deficiency Active guaiFENesin ER (MUCINEX) 600 MG 12 hr tabletIndications:C ongestion of Upper Airway (Inactive) Take 600 mg by mouth every 12 (twelve) hours as needed for Congestion. Indications: Congestion of Upper Airway Active levothyroxine (SYNTHROID) 88 MCG tabletIndications:H ypothyroidism Take 88 mcg by mouth every morning. Indications: Underactive Thyroid Active fluticasone-salmete rol (ADVAIR DISKUS) 250-50 MCG/ACT inhalerIndications: COPD, surveillance Inhale 1 puff into the lungs 2 (two) times daily. Indications: COPD, surveillance Active levalbuterol (XOPENEX) 1.25 MG/3ML nebulizer solutionIndications :COPD, surveillance Take 1 ampule by nebulization every 4 (four) hours as needed for Wheezing. Indications: COPD, surveillance Q4-6h prn Active lisinopril (PRINIVIL) 10 MG tabletIndications:H ypertension Take 10 mg by mouth daily. Indications: High Blood Pressure Disorder Active montelukast (SINGULAIR) 10 MG tabletIndications:A sthma Take 10 mg by mouth nightly at bedtime. Indications: Asthma Active omeprazole (PRILOSEC) 40 MG capsuleIndications: Nonerosive Gastroesophagel Reflux Disease Take 40 mg by mouth daily. Indications: Nonerosive GERD Active potassium chloride CR (K-TAB) 10 MEQ Tab CR tabletIndications:H ypokalemia Take 20 mEq by mouth daily. Indications: Low Amount of Potassium in the Blood Active roflumilast (DALIRESP) 500 MCG TabIndications:COPD , surveillance Take 500 mcg by mouth daily. Indications: COPD, surveillance Active rOPINIRole (REQUIP) 1 MG tabletIndications:R estless Leg Syndrome Take 1 mg by mouth nightly at bedtime. Indications: Restless Leg Syndrome 05/21/19 23 Active venlafaxine XR (EFFEXOR-XR) 150 MG 24 hr capsuleIndications: Depression Take 150 mg by mouth daily. Indications: Depression Active SUMAtriptan (IMITREX) 50 MG tabletIndications:M igraine Prophylaxis Take 50 mg by mouth daily as needed for Migraine. Indications: Treatment to Prevent Migraine Headaches Max of 4 tablets (200 mg) in 24 hours. Active tiotropium (SPIRIVA) 18 MCG inhalation capsuleIndications: COPD, surveillance Place 18 mcg into inhaler and inhale daily. Indications: COPD, surveillance Active dilTIAZem XR (DILACOR XR) 120 MG 24 hr capsuleIndications: Hypertension Take 120 mg by mouth daily. Indications: High Blood Pressure Disorder Active magnesium oxide (MAG-OX) 400 (240 Mg) MG tabletIndications:s upplement Take 1 tablet (400 mg total) by mouth daily. 10 tablet 05/20/19 Active OXYGENIndications:C OPD, exacerbation 2 L/min by Nasal route continuous. 2L at rest, 4L with activity Indications: COPD exacerbation 05/21/19 Active gabapentin (NEURONTIN) 300 MG capsuleIndications: Femoral Nerve Pain Take 300 mg by mouth 2 (two) times daily. Indications: Thigh Bone Nerve Pain 06/02/19 Active Active Problems Problem Noted Date Diagnosed Date Physical deconditioning 05/19/2022 Social History Tobacco Use Types Packs/Day Years Used Date Smoking Tobacco: Never Smokeless Tobacco: Never Tobacco Cessation:Counseling Given: Not Answered OASIS D0700: Social Isolation Answer Da te Recorded Frequency of experiencing loneliness or isolatio n Never 06/19/2022 OASIS A1250: Transportation Answer Date Recorded Lack of Transportation (Medical) No 06/19/2022 Lack of Transportation (Non-Medical) No 06/19/2022 Patient Unable or Declines to Respond No 06/19/2022 OASIS B1300: Health Literacy Answer Rey e Recorded Frequency of needing help to read materials from doctor or pharmacy Never 06/19/2022 Comments Unknown Sex and Gender Information Value Date Recorded Sex Assigned at Not on file Legal Sex Female 5:53 PM ASSOCIATE CREATIVE DIRECTOR Gender Identity Not on file Sexual Orientation Not on file Last Filed Vital Signs Vital Sign Reading Time Taken Comments Blood Pressure 128/62 06/19/2022 1:04 PM ASSOCIATE CREATIVE DIRECTOR Pulse 97 06/19/2022 1:04 PM ASSOCIATE CREATIVE DIRECTOR Temperature 36.9 ??C (98.4 ??F) 06/19/2022 1:04 PM CS T Respiratory Rate 18 06/19/2022 1:04 PM ASSOCIATE CREATIVE DIRECTOR Oxygen Saturation 98% 06/19/2022 1:04 PM ASSOCIATE CREATIVE DIRECTOR Inhaled Oxygen Concentration - - Weight 72.1 kg (158 lb 15.2 oz) 05/20/2022 3:35 AM ASSOCIATE CREATIVE DIRECTOR Height 152.4 cm (5') 05/12/2022 8:20 PM ASSOCIATE CREATIVE DIRECTOR Body Mass Index 31.04 05/12/2022 8:20 PM ASSOCIATE CREATIVE DIRECTOR Plan of Treatment Health Maintenance Due Date Last Done Comments Colorectal Cancer Screening Colonoscopy (10 Years) 1952 Hepatitis C 1970 Mammogram Screening 1992 Annual Medicare Wellness Visit 2017 Dexa Scan (General) 2017 Zoster Vaccines (3 of 3) 03/27/2018 018, 11/11/2017, 06/24/2013 COVID-19 Vaccine ( season) 2023 02/05/2022, 05/09/2021, 11/28/2020, Additional history exists Influenza Adult (#1) 2024 04/04/2021, 01/23/2019, 01/21/2018, Additional history exists RSV Immunization or 60+ Years (1 - 1-dose 75+ series) 12/25/2027 DTaP, Tdap and Td Vaccines (2 - Td or Tdap) 03/03/2029 03/03/2019 Pneumococcal Vaccine: 65+ Years Completed 01/23/2019, 01/21/2018, 09/29/2015 Meningococcal B Vaccine Aged Out No l onger eligible based on patient's age to complete this topic Meningococcal Vaccine Aged Out No nancy carlie eligible based on patient's age to complete this topic RSV Immunizations Under 20 Months Aged Out No longer eligible based on patient's age to complete this topic Insurance [place] [address] [address] [address] Advance Directives * Full Code (Latest Code Status on File) Date Activated Date Inactivated Comments 05/21/2022 10:44 AM * Full Code Date Activated Date Inactivated Comments 05/19/2022 12:18 PM 05/20/2022 12:53 PM Care Teams Coverer Relationship Specialty Start Date End Date Sonia Ugalde NP [address] [place] [address] PCP - General FAMILY MEDICINE SPORTS MEDICINE 05/12/22
--- OUTSIDE RECORDS SUMMARY | 2024-05-15 19:26 | XMS_ITS | Encounter Summary ---
Author Organization [facility] Address [facility] [facility] [place] [address] [place] [address] Care Team Providers Care Language Pathologist Name Role Phone Sonia Ugalde NP Primary Care Provider [phone] Encounter Details Date Type Department Care Team (Late st Contact Info) Description 09/17/2018 Abstract [facility]FL CONVERSION [address] [place] [address] , Generic Conversion, Social History Tobacco Use Types Packs/Day Years Used Date Smoking Tobacco: Never Assessed Comments Unknown Sex and Gender Information Value Date Recorded Sex Assigned at Not on file Legal Sex Female 5:53 PM RN RECRUITMENT Gender Identity Not on file Sexual Orientation Not on file documented as of this encounter Plan of Treatment Not on file documented as of this encounter Visit Diagnoses Not on filedocumented in this encounter Care Teams Language Pathologist Relationship Specialty Start Date End Date Sonia Ugalde NP [address] [place], [place] [id number] PCP - General FAMILY MEDICINE SPORTS MEDICINE 05/12/22 documented as of this encounter
--- OUTSIDE RECORDS SUMMARY | 2024-05-15 19:26 | XMS_ITS | Clinical Summary ---
Author Organization [facility] Address [address] [place] [address] Phone Care Team Providers Care Air Director Name Role Phone Sonia Ugalde APRN Primary Care Provider [phone] Allergies Active Allergy Reactions Criticality Noted Date Comments Penicillins Rash,Swelling Medium 04/24/2022 Sulfa Antibiotics Rash Low 05/05/2023 Medications Prolia 60 MG/ML Solution Prefilled Syringe 4 Active levalbuterol (XOPENEX) 1.25 MG/3ML Nebulizer Soln levalbuterol 1.25 mg/3 mL solution for nebulization USE 1 VIAL IN NEBULIZER EVERY 4 TO 6 HOURS WHILE AWAKE Active ondansetron (ZOFRAN-ODT) 4 MG TABLET DISPERSIBLE DISSOLVE 1 TABLET ON TONGUE EVERY 8 HOURS NEEDED FOR NAUSEA AND VOMITING 2 Active topiramate (TOPAMAX) 25 MG CAPSULE SPRINKLE Take 25 mg by mouth. 3 Active acetaminophen (TYLENOL) 325 MG Tablet Take 650 mg by mouth. Active albuterol 108 (90 Base) MCG/ACT Aerosol Solution take 2 Puffs by inhalation. 3 Active atorvastatin (LIPITOR) 40 MG Tablet Take 40 mg by mouth daily. Active busPIRone (BUSPAR) 15 MG Tablet Take 15 mg by mouth 2 times daily. Active cetirizine (ZyrTEC) 10 MG Tablet cetirizine 10 mg tablet TAKE 1 2 (ONE HALF)5 MG TABLET BY MOUTH ONCE DAILY FOR ALLERGY SYMPTOMS 3 Active dilTIAZem (CARDIZEM CD) 120 MG CAPSULE SR 24 HR Take 120 mg by mouth daily. Active ergocalciferol (VITAMIN D) 20276 UNIT Capsule Vitamin D2 1,250 mcg (50,000 unit) capsule TAKE 1 CAPSULE BY MOUTH ONCE A WEEK Active ferrous sulfate 325 (65 Fe) MG Tablet Take 325 mg by mouth daily. Active fluticasone-sourav meterol (ADVAIR) 250-50 MCG/ACT AEROSOL POWDER, BREATH ACTIVATED INHALE 1 PUFF BY MOUTH EVERY 12 HOURS- RINSE AND SPIT AFTER USE Active ipratropium-alb uterol (DUO-NEB) 0.5-2.5 (3) MG/3ML Solution take by inhalation. Active levothyroxine (SYNTHROID) 88 MCG Tablet Take 88 mcg by mouth daily. Active lisinopril (PRINIVIL, ZESTRIL) 10 MG Tablet Take 10 mg by mouth daily. Active montelukast (SINGULAIR) 10 MG Tablet Take 10 mg by mouth daily. Active omeprazole (PriLOSEC) 40 MG CAPSULE DELAYED RELEASE Take 40 mg by mouth daily. Active Potassium Chloride ER (KLORCON) 20 MEQ Tablet Controlled Release Take 20 mEq by mouth daily. Active roflumilast (DALIRESP) 500 MCG Tablet TAKE 1 TABLET BY MOUTH DAILY X 90 DAYS Active rOPINIRole (REQUIP) 1 MG Tablet TAKE 1 TABLET BY MOUTH 1-2 HOURS BEFORE BEDTIME Active SUMAtriptan (IMITREX) 50 MG Tablet sumatriptan 50 mg tablet Active tiotropium (SPIRIVA) 18 MCG Capsule Spiriva with HandiHaler 18 mcg and inhalation capsules Active Ubrelvy 100 MG Tablet TAKE 1 TABLET BY MOUTH ONCE NEEDED FOR MIGRAINE. REPEAT IN 2 HOURS IF NEEDED 4 Active valACYclovir (VALTREX) 500 MG Tablet Take 500 mg by mouth daily. 4 Active venlafaxine (EFFEXOR-XR) 150 MG CAPSULE SR 24 HR Take 150 mg by mouth daily. Active Active Problems Problem Noted Date Diagnosed Date Chronic hypoxic respiratory failure 05/06/2023 CVID (common variable immunodeficiency) 05/06/19 24 HTN (hypertension) 05/06/2023 Migraines 05/06/2023 Physical deconditioning 05/19/2022 Social History Tobacco Use Types Packs/Day Years Used Date Smoking Tobacco: Former Cigarettes Smokeless Tobacco: Never Tobacco Cessation:Counseling Given: Not Answered Alcohol Use Standard Drinks/Week Comments Not Currently 0 (1 standard drink = 0.6 oz pur e alcohol) Comments No Sex and Gender Information Value Date Recorded Sex Assigned at Not on file Legal Sex Female 10:30 PM CDT Gender Identity Not on file Sexual Orientation Not on file Last Filed Vital Signs Vital Sign Reading Time Taken Comments Blood Pressure 121/74 11/11/2023 11:22 AM CDT Pulse 108 11/11/2023 11:22 AM CDT Temperature 37.7 ??C (99.8 ??F) 11/11/2023 10:09 AM C DT Respiratory Rate 24 11/11/2023 11:22 AM CDT Oxygen Saturation 100% 11/11/2023 11:22 AM CDT Inhaled Oxygen Concentration - - Weight 63 kg (139 lb) 11/11/2023 10:09 AM CDT Height 152.4 cm (5') 11/11/2023 10:09 AM CDT Body Mass Index 27.15 11/11/2023 10:09 AM CDT Plan of Treatment Health Maintenance Due Date Last Done Comments DEXA Bone Density 1950 Hepatitis C Virus (HCV) Screening 1950 Colonoscopy 1997 Colorectal Cancer Screening 1997 Cologuard 2002 Immunochemical Fecal Occult Blood 2002 Mammogram 2002 Zoster Immunization (2 of 2) 03/27/2018, 11/11/2017, 06/24/2013 Influenza Immunization (#1) 12/12/202301/11, 02/23/2022, 04/04/2021, Additional history exists SARS-COV-2 Immunization ( season) 2023 01/29/2023, 02/05/2022, 05/09/2021, Additional history exists Pneumococcal Immunization (50+ years) Completed 01/23/2019, 01/21/2018, 09/29/2015, Additional history exists TdaP Immunization Completed 03/03/2019 Respiratory Syncytial Virus (RSV) Immunization (Adult) Completed 01/29/2023 Hepatitis B Immunization Aged Out No longer eligible based on patient's age to complete this topic Meningococcal Immunization (ACWY) Aged Out No longer eligible based on patient's age to complete this topic Rotavirus Immunization Aged Out No lo nger eligible based on patient's age to complete this topic Insurance [place] HUMANA Care Teams Air Director Relationship Specialty Start Date End Date Sonia Ugalde APRN [address] [place] [address] PCP - General Family Medicine 11/11/23
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
--- OUTSIDE RECORDS SUMMARY | 2024-05-15 19:27 | XMS_ITS | Referral Summary ---
Author Organization [facility] Address [address] [facility] [place] [address] Care Team Providers Care Ip Litigation Paralegal Name Role Phone Sonia Ugalde DREDGE BOAT ENGINEER-FARM OPERATIONS TECHNICAL DIRECTOR Primary Care Provider + Source Comments [facility],non-owned Affiliates and Associated Physician Practices is amultiple site organization consisting of ambulatory clinics and hospital sitesin [place], [place], [place] and [place]. This disclosure is being madepursuant to the Care Everywhere program and may not contain all information available regarding this patient. 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 Office Visit [facility] - Orthopedic Surgery [address] [place] [address] Rodrick Presley MD Lumbar radiculopathy (Primary Dx) from Last 3 Months Allergies Active Allergy Reactions Criticality Noted Date [...] Pressure Disorder Active ergocalciferol (Drisdol) 1.25 MG (98408 UT) capsuleIndications: Vitamin D Deficiency Vitamin D2 [...] inhalation Active busPIRone (Buspar) 15 MG tabletIndications:M krystal Depressive Disorder Take 1 (one) tablet by mouth 2 times daily Reasons: Major Depressive Disorder Active OxygenIndications:c opd/ sob [place] 2 L/min into the nose continuous Reasons: [...] Recorded Patient Health Questionnaire-2 Score 3 02/28/2024 [facility] - Occupational [...] place to sleep or slept in a detention (including now)? No 04/25/2022 Sex and Gender [...] Oxygen Concentration 32% 05/08/2022 9 :49 AM GLOBAL SUPPLY CHAIN VICE PRESIDENT Weight 69.9 kg (154 lb) 11/02/2022 5:50 AM CDT Height 152.4 cm (5') 11/02/2022 5:50 AM CDT Body Mass Index 30.08 11/02/2022 5:50 AM CDT Functional Status Functional Status Response Date of Assess ment Is person deaf or have serious hearing difficult y? Yes 04/25/2022 Is person blind or have serious difficulty seein g? Yes 04/25/2022 Does person have serious dif ficulty walking/climbing stairs? Yes 04/25/2022 Does person have difficulty dressing/bathing? No 04/25/2022 Does person have difficulty doing errands alone? No 04/25/2022 Cognitive Status Response Date of Assessm ent Does person have difficulty concentrating/remembering/making decisions? No 04/25/2022 Plan of Treatment Upcoming Encounters Date Type Department Care Team (Late st Contact Info) Description 08/09/2024 2:00 PM CDT Office Visit [facility] - Orthopedic Surgery [address] [place] [address] Bhaskar Mack MD [address] [facility] [address] [place] [address] Medical Devices Implanted Type Area Electrical & Instrumentation Supervisor Device Identifier Shelf Expiration Date Model / Serial / Lot Screw 6.5mm 95mm Cassidy Lng Bone Sm Bone Implanted:Qty: 1 on 04/27/2022 by Luis Daniel Roca MD at [facility] [employer] [facility] [id number] / / Screw 6.5mm 110mm Cassidy Lng Bone Sm Bone Implanted:Qty: 1 on 04/27/2022 by Luis Daniel Roca MD at [facility] [employer] [facility] [id number] / / Screw Extfix 190mm 6mm Schnz Ss Spd Pnt Implanted:Qty: 1 on 04/27/2022 by Luis Daniel Roca MD at [facility] [employer] [id number] / / Head Fem +4mm 03/25 Tpr 36mm Hip Oxnm Implanted:Qty: 1 on 11/02/2022 by Bhaskar Mack MD at [facility] Right: Hip [employer] 06/21/2032 [id number] / / [id number] Shell Actb 52mm Hip 3 Hl Poly R3 Std Implanted:Qty: 1 on 11/02/2022 by Bhaskar Mack MD at [facility] Right: Hip [employer] 07/07/2032 [id number] / / [id number] Screw 6.5mm 25mm Hip Actb Canc Sphrcl Implanted:Qty: 1 on 11/02/2022 by Bhaskar Mack MD at [facility] Right: Hip [employer] 04/15/2032 [id number] / / [id number] Liner Actb R3 20d 52mm 36mm Xlpe Poly Implanted:Qty: 1 on 11/02/2022 by Bhaskar Mack MD at [facility] Right: Hip [employer] 03/09/2031 [id number] / / [id number] Stem Fem 136mm Hip 135d 2 12/14 Std Ofst Implanted:Qty: 1 on 11/02/2022 by Bhaskar Mack MD at [facility] Right: Hip [employer] 02/12/2028 [id number] / / [id number] Explanted Type Area Electrical & Instrumentation Supervisor Device Identifier Shelf Expiration Date Model / Serial / Lot Screw 6.5mm 85mm Cassidy Lng Bone Sm Bone Explanted:Qty: 1 on 04/27/2022 by Luis Daniel Roca MD at [facility] [id number] / / Gd Pin Orth 450mm 3.2mm Cocr Xtd Acc Explanted:Qty: 2 on 04/27/2022 at [facility] [id number] / / Insurance Payer Benefit Plan / Group Subscriber ID Effective Dates Phone Address Type HUMANA HUMANA MEDICARE ADV [id number] Effective for all dates [address] [address] [place] [address] [place] [id number] Effective for all dates [address] [address] [place] [address] Medicaid [place] HU[place] HU[place]NA MEDICARE ADV [id number] Effective for all dates [address] [address] [place] [address] [place] [id number] Effective for all dates [address] [address] [place] [address] Medicaid [place] HU[place]NA MEDICARE ADV [id number] Effective for all dates [address] [address] [place] [address] [place] [id number] Effective for all dates [address] [address] [place] [address] Medicaid [place] HUMAN MEDICARE HUMANA MEDICARE ADV HMO & PPO [id number] 04/12/2022-Pres ent [address] [address] [place] [address] Medicare-Man aged Care [place] [id number] 04/12/2022-Pres ent [address] [address] [place] [address] Medicaid [place] TPL THIRD DEMOCRAT LIABILITY TPL THIRD DEMOCRAT LIABILITY [id number] Effective for all dates [address] [place] [address] Third Constitution Party Liability HUMANA HUMANA MEDICARE ADV PPO/HMO [id number] 04/12/2022-Pres ent HUMANA CLAIMS OFFICE [address] [address] [place] [address] Medicare-Man aged Care MEDICAID - OUT OF STATE MEDICAID - [place] PUBLIC A[place] [id number] Effective for all dates [address] [address] [place] [address] Medicaid Advance Directives * Full Code (Latest Code [...] 5:05 AM 05/12/2022 7:18 PM Care Teams Ip Litigation Paralegal Relationship Specialty Start Date End Date Sonia Ugalde, DREDGE BOAT ENGINEER-FARM OPERATIONS TECHNICAL DIRECTOR [address] [place] [address] PCP - General Nurse Practitioner Family 04/24/22
[2024-05-15 20:19] VITALS: BP 110/65; PULSE 103; RESP 17; TEMP 36.4; O2SAT 99
--- NOTE | 2024-05-15 20:21 | ECG_ITS ---
Test Date: 2024-05-15 20:25:30 Measurements Intervals [place] Rate: 103 P: 31 DE: 130 QRS: 85 QRSD: 86 T: 65 QT: 345 QTc: 452 Interpretive Statements SINUS TACHYCARDIA WITH OCCASIONAL SUPRAVENTRICULAR PREMATURE COMPLEXES LOW QRS VOLTAGE IN PRECORDIAL LEADS POSSIBLE RIGHT VENTRICULAR CONDUCTION DELAY BASELINE ARTIFACT- I, III, AVR, AVL, AVF BORDERLINE ECG Compared to ECG 03/19/2024 12:35:44 NO SIGNIFICANT CHANGE Electronically Signed On 05-16-2024 07:07:06 POULTRY PROCESSING SUPERVISOR by Freedom Mendoza D.O.
[2024-05-15 20:41] LABS: Basophils Percent Auto 0.7 % (0.2-1.2); Eosinophils Absolute Auto 0.1 K/mm3 (0-0.3); Eosinophils Percent Auto 2.6 % (0-4.4); Hematocrit 39.3 % (37.0-47.0); Hemoglobin 13.1 g/dL (12.0-15.0); Immature Granulocyte Absolute 0.02 K/mm3 (0.00-0.031); Immature Granulocyte Percent A 0.5 % (0-0.5); Mean Corpuscular HGB Conc 33.3 g/dl (32-36); Mean Corpuscular Hemoglobin 31.6 pg (26-34); Mean Corpuscular Volume 94.9 fl (80-100); Mean Platelet Volume 9.9 fl (7.4-10.4); Monocytes Absolute Auto 0.5 K/mm3 (0.1-0.6); Monocytes Percent Auto 11.8 % (2.6-8.5); Neutrophils Absolute Auto 2.5 K/mm3 (1.3-6.7); Neutrophils Percent Auto 58.4 % (45.5-73.1); Platelet Count Result 193 k/mm3 (150-375); Red Blood Count 4.14 M/mm3 (4.2-5.4); Red Cell Distribution Width 13.6 % (11.5-14.5); White Blood Count 4.2 K/mm3 (4.5-10.0)
[2024-05-15 20:52] LABS: Alanine Aminotransferase 22 U/L (6-35); Albumin Level 3.9 g/dL (3.5-5.1); Alkaline Phosphatase 118 U/L (38-126); Anion Gap 7 mmol/L (4-12); Aspartate Amino Transferase 25 U/L (14-36); Bilirubin,Total 0.6 mg/dL (0.2-1.3); Blood Urea Nitrogen 6 mg/dL (7-17); Calcium 9.3 mg/dL (8.4-10.2); Carbon Dioxide 26 mmol/L (22-30); Chloride 106 mmol/L (98-107); Estimated CRCL calculation 58 ml/min; Estimated Glomerular Filt Rate > 60; Glucose 91 mg/dL (65-110); Potassium 3.7 mmol/L (3.4-5.0); Sodium 139 mmol/L (137-145)
[2024-05-15 21:03] LABS: Troponin I < 0.012 ng/mL (0.000-0.034)
[2024-05-16 01:00] VITALS: BP 121/95; PULSE 101; RESP 17; O2SAT 99
--- NOTE | 2024-05-16 01:06 | ED_ITS ---
HPI - General Adult General Chief complaint: Shortness of Breath/Dyspnea Stated complaint: SOB Time Seen by Provider: 05/16/24 00:50 History of Present Illness HPI narrative: Patient is a 73-year-old female who presents emergency department with chief complaint of shortness of breath. The patient reports he has history of COPD wears 2 L at rest and 4 L with activity of oxygen patient states that she had an exacerbation about a month ago and reports for the last 3 days she has had shortness of breath. The patient states that this is her typical exacerbation reports that she had several family members that were sick recently patient denies fever reports this is her typical exacerbation Related Data Home Medications ?Medication ?Instructions ?Recorded ?Confirmed ?Last Taken ?Type immune glob G 10 gram/100 100 ml subcut WEEKLY 03/17/20 03/19/24 03/10/20 History mL(10%)-gly-IgA ave 46 mcg/mL injection soln (Gamunex-C) acetaminophen 650 mg 650 mg PO Q12H PRN Pain (Scale 06/07/23 03/19/24 Unknown History tablet,extended release (Tylenol Score 1-3) Arthritis Pain) ergocalciferol (vitamin D2) 1,250 1,250 mcg PO [id number] 03/19/24 03/19/24 Unknown History mcg (50,000 unit) capsule omeprazole 40 mg capsule,delayed 40 mg PO DAILY 03/19/24 03/19/24 Unknown History release ropinirole 1 mg tablet 1 mg PO HS 03/19/24 03/19/24 Unknown History tiotropium bromide 18 mcg capsule 18 mcg inhalation DAILY 03/19/24 03/19/24 Unknown History with inhalation device (Spiriva with HandiHaler) topiramate 25 mg sprinkle capsule 25 mg PO BID 03/19/24 03/19/24 Unknown History venlafaxine 150 mg 150 mg PO DAILY 03/19/24 03/19/24 Unknown History capsule,extended release 24 hr Allergies Allergy/AdvReac Type Severity Reaction Status Date / Time Penicillins Allergy Unknown Swelling Verified 02/14/24 15:08 Sulfa (Sulfonamide Allergy Unknown Rash Verified 02/14/24 15:08 Antibiotics) Review of Systems 2 Review of Systems: A 10 system review of systems was completed on the patient and is negative except for what is stated in the HPI. Nursing and ancillary documentation was reviewed. PMFSH Past Medical History Medical History Chronic nausea Chronic hypoxic respiratory failure, on home oxygen therapy 2 L at rest 4 L with activity Osteopenia Alternating constipation and diarrhea Herpes simplex type 2 infection Family history of aneurysm of blood vessel of brain Overweight Postmenopausal Former smoker Cervical disc disorder with radiculopathy Chronic migraine Iron deficiency Postmenopausal Pre-diabetes Pulmonary nodule Vitamin D deficiency, unspecified Arthritis of wrist, right Bilateral primary osteoarthritis of knee CVID (common variable immunodeficiency) Eczema Uterine cancer Anxiety Depression Hypothyroid GERD (gastroesophageal reflux disease) Ulcer Hiatal hernia Chronic bronchitis HTN (hypertension) Hyperlipidemia Restless leg syndrome Seasonal allergies Chronic obstructive pulmonary disease Chronic respiratory failure with hypoxia Dyslipidemia Essential hypertension Mixed hyperlipidemia (10/28/18) Obstructive sleep apnea Tachycardia Chronic with baseline heart rate 90s to low 100s Surgical History Surgical History History of hysterectomy History of tonsillectomy History of carpal tunnel release Family History Family History Mother Family history of chronic obstructive pulmonary disease Hypertension Chronic obstructive pulmonary disease Sibling Family history of malignant neoplasm Asthma Grandparent Acute myocardial infarction Social History Social History Social History: 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 She smoked at least 1 pack of cigarettes per day from the time she was a teenager until approximately 2008. She denies any significant alcohol or illicit substance use. She owns her own home and her adult son, [id number] live with her. Her adult grandchild just recently moved in. Code status: Full code (patient would not want tracheostomy or feeding tube but is okay with short-term ventilation. Surrogate decision maker: Nani Francisco (sister) Smoking packs per day: 1 Smoking cigarettes per day: 20.0 Years smoked: 40 Smoking pack-years: 40.00 Smoking status: Former smoker Tobacco type: cigarettes Second hand tobacco smoke exposure: Yes Smoking end date: 04/12/08 Alcohol intake: never Substance use: never Substance use type: does not use Do You Feel Safe in your Home?: Yes Lack of Transportation: No Lack of Food: Never True Current Housing: I Have Housing Concerned About Future Housing: No Difficulty Paying Gas/Electric Bills: No Difficulty Paying for Meds: No Currently Unemployed: No Education: Grade School Difficulty w/ Childcare or Family Care: No Living arrangements: alone Occupation/Education: occupation 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 Gender identity (if verbalized by the patient): Female Spiritual care concerns: No Agree to blood products: No Exam 2 Narrative: GENERAL: Well-appearing, well-nourished, and in no acute distress. HEAD: Normocephalic, atraumatic. EYES: PERRLA and EOMI. ENT: Nares clear, no rhinorrhea or epistaxis. Mucous membranes moist. NECK: Supple. CHEST: Clear to auscultation. No respiratory distress. HEART: Regular rate and rhythm. No murmur heard. Normal peripheral pulses. ABDOMEN: Soft, nontender, nondistended, normal active bowel sounds. EXTREMITIES: Normal range of motion. No edema. SKIN: Warm, dry, no rash. NEURO: No focal deficits. Alert and oriented x3. PSYCH: Normal mood and affect. Course Vital Signs Vital signs: Vital Signs Temperature 36.4 C 05/15/24 20:19 Pulse Rate 103 H 05/15/24 20:19 Respiratory Rate 17 05/15/24 20:19 Blood Pressure 110/65 05/15/24 20:19 Pulse Oximetry 99 05/15/24 20:19 Oxygen Delivery Room Air 05/15/24 20:19 Temperature 36.4 C 05/15/24 20:19 Pulse Rate 103 H 05/15/24 20:19 Respiratory Rate 17 05/15/24 20:19 Blood Pressure 110/65 05/15/24 20:19 Pulse Oximetry 99 05/15/24 20:19 Oxygen Delivery Room Air 05/15/24 20:19 Medical Decision Making [facility] Narrative Medical decision making narrative: Differential diagnosis includes pneumonia, COPD exacerbation, ACS EKG showed no acute ischemic changes troponin was negative electrolytes are within normal limits CBC was within normal limits Chest x-ray showed no focal infiltrate Patient given Decadron in the emergency department also given a breathing treatment. Patient was offered testing for COVID flu and RSV the patient has opted to not do testing for COVID flu RSV at this time. Vital Signs Vital Signs: Vital Signs Temperature 36.4 C 05/15/24 20:19 Pulse Rate 103 H 05/15/24 20:19 Respiratory Rate 17 05/15/24 20:19 Blood Pressure 110/65 05/15/24 20:19 Pulse Oximetry 99 05/15/24 20:19 Oxygen Delivery Room Air 05/15/24 20:19 Temperature 36.4 C 05/15/24 20:19 Pulse Rate 103 H 05/15/24 20:19 Respiratory Rate 17 05/15/24 20:19 Blood Pressure 110/65 05/15/24 20:19 Pulse Oximetry 99 05/15/24 20:19 Oxygen Delivery Room Air 05/15/24 20:19 Lab Data 05/15/24 20:34 05/15/24 20:34 Labs: Lab Results 05/15/24 05/15/24 05/15/24 Range/Units 20:34 20:34 20:34 WBC 4.2 L (4.5-10.0) K/mm3 RBC 4.14 L (4.2-5.4) M/mm3 Hgb 13.1 (12.0-15.0) g/dL Hct 39.3 (37.0-47.0) % MCV 94.9 (80-100) fl MCH 31.6 (26-34) pg MCHC 33.3 (32-36) g/dl RDW 13.6 (11.5-14.5) % Plt Count 193 (150-375) k/mm3 MPV 9.9 (7.4-10.4) fl Immature Gran % (Auto) 0.5 (0-0.5) % Neut % (Auto) 58.4 (45.5-73.1) % Lymph % (Auto) 26.0 (18.3-44.2) % Harrison % (Auto) 11.8 H (2.6-8.5) % Eos % (Auto) 2.6 (0-4.4) % Baso % (Auto) 0.7 (0.2-1.2) % Lymph # (Auto) 1.10 (0.9-3.2) K/mm3 Harrison # (Auto) 0.5 (0.1-0.6) K/mm3 Eos # (Auto) 0.1 (0-0.3) K/mm3 Baso # (Auto) 0.0 (0.0-0.1) K/mm3 Abs Immat Gran (auto) 0.02 (0.00-0.031) K/mm3 Absolute Neuts (auto) 2.5 (1.3-6.7) K/mm3 Absolute Nucleated RBC 0.000 (0.0-0.012) K/mm3 Nucleated RBC % 0.0 (0.0-0.2) % Sodium Cancelled 139 Potassium Cancelled 3.7 Chloride Cancelled Carbon Dioxide Anion Gap BUN Creatinine Estim Creat Clear Calc Estimated GFR Glucose Calcium Total Bilirubin AST ALT Alkaline Phosphatase Troponin I (0.000-0.034) ng/mL Total Protein Albumin 05/15/24 05/15/24 05/15/24 Range/Units 20:34 20:34 20:34 WBC (4.5-10.0) K/mm3 RBC (4.2-5.4) M/mm3 Hgb (12.0-15.0) g/dL Hct (37.0-47.0) % MCV (80-100) fl MCH (26-34) pg MCHC (32-36) g/dl RDW (11.5-14.5) % Plt Count (150-375) k/mm3 MPV (7.4-10.4) fl Immature Gran % (Auto) (0-0.5) % Neut % (Auto) (45.5-73.1) % Lymph % (Auto) (18.3-44.2) % Harrison % (Auto) (2.6-8.5) % Eos % (Auto) (0-4.4) % Baso % (Auto) (0.2-1.2) % Lymph # (Auto) (0.9-3.2) K/mm3 Harrison # (Auto) (0.1-0.6) K/mm3 Eos # (Auto) (0-0.3) K/mm3 Baso # (Auto) (0.0-0.1) K/mm3 Abs Immat Gran (auto) (0.00-0.031) K/mm3 Absolute Neuts (auto) (1.3-6.7) K/mm3 Absolute Nucleated RBC (0.0-0.012) K/mm3 Nucleated RBC % (0.0-0.2) % Sodium Potassium Chloride 106 Carbon Dioxide Cancelled 26 Anion Gap Cancelled 7 BUN Cancelled Creatinine Estim Creat Clear Calc Estimated GFR Glucose Calcium Total Bilirubin AST ALT Alkaline Phosphatase Troponin I (0.000-0.034) ng/mL Total Protein Albumin 05/15/24 05/15/24 05/15/24 Range/Units 20:34 20:34 20:34 WBC (4.5-10.0) K/mm3 RBC (4.2-5.4) M/mm3 Hgb (12.0-15.0) g/dL Hct (37.0-47.0) % MCV (80-100) fl MCH (26-34) pg MCHC (32-36) g/dl RDW (11.5-14.5) % Plt Count (150-375) k/mm3 MPV (7.4-10.4) fl Immature Gran % (Auto) (0-0.5) % Neut % (Auto) (45.5-73.1) % Lymph % (Auto) (18.3-44.2) % Harrison % (Auto) (2.6-8.5) % Eos % (Auto) (0-4.4) % Baso % (Auto) (0.2-1.2) % Lymph # (Auto) (0.9-3.2) K/mm3 Harrison # (Auto) (0.1-0.6) K/mm3 Eos # (Auto) (0-0.3) K/mm3 Baso # (Auto) (0.0-0.1) K/mm3 Abs Immat Gran (auto) (0.00-0.031) K/mm3 Absolute Neuts (auto) (1.3-6.7) K/mm3 Absolute Nucleated RBC (0.0-0.012) K/mm3 Nucleated RBC % (0.0-0.2) % Sodium Potassium Chloride Carbon Dioxide Anion Gap BUN 6 L D Creatinine Cancelled 0.63 L Estim Creat Clear Calc Cancelled 58 Estimated GFR Cancelled Glucose Calcium Total Bilirubin AST ALT Alkaline Phosphatase Troponin I (0.000-0.034) ng/mL Total Protein Albumin 05/15/24 05/15/24 05/15/24 Range/Units 20:34 20:34 20:34 WBC (4.5-10.0) K/mm3 RBC (4.2-5.4) M/mm3 Hgb (12.0-15.0) g/dL Hct (37.0-47.0) % MCV (80-100) fl MCH (26-34) pg MCHC (32-36) g/dl RDW (11.5-14.5) % Plt Count (150-375) k/mm3 MPV (7.4-10.4) fl Immature Gran % (Auto) (0-0.5) % Neut % (Auto) (45.5-73.1) % Lymph % (Auto) (18.3-44.2) % Harrison % (Auto) (2.6-8.5) % Eos % (Auto) (0-4.4) % Baso % (Auto) (0.2-1.2) % Lymph # (Auto) (0.9-3.2) K/mm3 Harrison # (Auto) (0.1-0.6) K/mm3 Eos # (Auto) (0-0.3) K/mm3 Baso # (Auto) (0.0-0.1) K/mm3 Abs Immat Gran (auto) (0.00-0.031) K/mm3 Absolute Neuts (auto) (1.3-6.7) K/mm3 Absolute Nucleated RBC (0.0-0.012) K/mm3 Nucleated RBC % (0.0-0.2) % Sodium Potassium Chloride Carbon Dioxide Anion Gap BUN Creatinine Estim Creat Clear Calc Estimated GFR > 60 Glucose Cancelled 91 Calcium Cancelled 9.3 Total Bilirubin Cancelled AST ALT Alkaline Phosphatase Troponin I (0.000-0.034) ng/mL Total Protein Albumin 05/15/24 05/15/24 05/15/24 Range/Units 20:34 20:34 20:34 WBC (4.5-10.0) K/mm3 RBC (4.2-5.4) M/mm3 Hgb (12.0-15.0) g/dL Hct (37.0-47.0) % MCV (80-100) fl MCH (26-34) pg MCHC (32-36) g/dl RDW (11.5-14.5) % Plt Count (150-375) k/mm3 MPV (7.4-10.4) fl Immature Gran % (Auto) (0-0.5) % Neut % (Auto) (45.5-73.1) % Lymph % (Auto) (18.3-44.2) % Harrison % (Auto) (2.6-8.5) % Eos % (Auto) (0-4.4) % Baso % (Auto) (0.2-1.2) % Lymph # (Auto) (0.9-3.2) K/mm3 Harrison # (Auto) (0.1-0.6) K/mm3 Eos # (Auto) (0-0.3) K/mm3 Baso # (Auto) (0.0-0.1) K/mm3 Abs Immat Gran (auto) (0.00-0.031) K/mm3 Absolute Neuts (auto) (1.3-6.7) K/mm3 Absolute Nucleated RBC (0.0-0.012) K/mm3 Nucleated RBC % (0.0-0.2) % Sodium Potassium Chloride Carbon Dioxide Anion Gap BUN Creatinine Estim Creat Clear Calc Estimated GFR Glucose Calcium Total Bilirubin 0.6 AST Cancelled 25 ALT Cancelled 22 Alkaline Phosphatase Cancelled Troponin I (0.000-0.034) ng/mL Total Protein Albumin 05/15/24 05/15/24 05/15/24 Range/Units 20:34 20:34 20:34 WBC (4.5-10.0) K/mm3 RBC (4.2-5.4) M/mm3 Hgb (12.0-15.0) g/dL Hct (37.0-47.0) % MCV (80-100) fl MCH (26-34) pg MCHC (32-36) g/dl RDW (11.5-14.5) % Plt Count (150-375) k/mm3 MPV (7.4-10.4) fl Immature Gran % (Auto) (0-0.5) % Neut % (Auto) (45.5-73.1) % Lymph % (Auto) (18.3-44.2) % Harrison % (Auto) (2.6-8.5) % Eos % (Auto) (0-4.4) % Baso % (Auto) (0.2-1.2) % Lymph # (Auto) (0.9-3.2) K/mm3 Harrison # (Auto) (0.1-0.6) K/mm3 Eos # (Auto) (0-0.3) K/mm3 Baso # (Auto) (0.0-0.1) K/mm3 Abs Immat Gran (auto) (0.00-0.031) K/mm3 Absolute Neuts (auto) (1.3-6.7) K/mm3 Absolute Nucleated RBC (0.0-0.012) K/mm3 Nucleated RBC % (0.0-0.2) % Sodium Potassium Chloride Carbon Dioxide Anion Gap BUN Creatinine Estim Creat Clear Calc Estimated GFR Glucose Calcium Total Bilirubin AST ALT Alkaline Phosphatase 118 Troponin I < 0.012 (0.000-0.034) ng/mL Total Protein Cancelled 7.0 Albumin Cancelled 3.9 Discharge Plan Discharge Clinical Impression: Chronic obstructive pulmonary disease Qualifiers: COPD type: unspecified COPD Qualified Code(s): J44.9 - Chronic obstructive pulmonary disease, unspecified Patient Disposition: Home, Self-Care Condition: Stable Instructions: Antibiotic Form, COPD (Chronic Obstructive Pulmonary Disease) (ED) Patient Language: Indonesian Prescriptions: New prednisone 20 mg tablet 40 mg PO DAILY 5 Days Qty: 10 0RF No Action azithromycin 250 mg tablet See Rx Instructions .ROUTE .COMPLEX Qty: 6 0RF Rx Instructions: For 250 mg dose pack: take 500 mg today (day 1), then 250 mg for 4 days (days 2-5) prednisone 50 mg tablet 50 mg PO DAILY Qty: 5 0RF albuterol sulfate [Ventolin HFA] 90 mcg/actuation HFA aerosol inhaler 2 puff inhalation QID PRN (Reason: shortness of breath or wheezing) Qty: 8.5 0RF valacyclovir 500 mg tablet 500 mg PO DAILY Qty: 90 4RF acetaminophen [Tylenol Arthritis Pain] 650 mg tablet extended release 650 mg PO Q12H PRN (Reason: Pain (Scale Score 1-3)) Ubrelvy 100 mg tablet 100 mg PO ONCE PRN (Reason: migraine headache) Qty: 14 3RF Rx Instructions: as a single dose; may repeat once in >=2 hours after first dose if needed Gamunex-C 10 gram/100 mL (10 %) solution 100 ml subcut WEEKLY Rx Instructions: TAKES ON TUESDAYS ropinirole 1 mg tablet 1 mg PO HS Rx Instructions: TAKE 1 TABLET BY MOUTH 1-2 HOURS BEFORE BEDTIME omeprazole 40 mg capsule,delayed release(DR/EC) 40 mg PO DAILY Rx Instructions: TAKE 1 CAPSULE BY MOUTH EVERY DAY topiramate 25 mg capsule, sprinkle 25 mg PO BID Rx Instructions: TAKE 1 CAPSULES BY MOUTH TWICE A DAY ergocalciferol (vitamin D2) 1,250 mcg (50,000 unit) capsule 1,250 mcg PO [id number] Rx Instructions: NEEDS ON WEDNESDAY tiotropium bromide [Spiriva with HandiHaler] 18 mcg capsule, w/inhalation device 18 mcg inhalation DAILY Rx Instructions: INHALE THE CONTENTS OF 1 CAPSULE BY MOUTH ONCE DAILY venlafaxine 150 mg capsule,extended release 24hr 150 mg PO DAILY Rx Instructions: TAKE 1 CAPSULE BY MOUTH EVERY DAY prednisone 20 mg Tablet 40 mg PO DAILY@0800 Qty: 8 0RF guaifenesin [Mucus Relief ER] 600 mg Tablet Extended Release 12hr 1,200 mg PO Q12HR Qty: 14 0RF doxycycline hyclate 100 mg capsule 100 mg PO DAILY Qty: 10 0RF fluticasone propion-salmeterol [Wixela Inhub] 250-50 mcg/dose blister with device 1 inh inhalation Q12H 90 Days Qty: 180 3RF Rx Instructions: rinse and spit Prolia 60 mg/mL syringe 60 mg subcut [id number] Qty: 1 1RF Rx Instructions: DUE IN 2024 levalbuterol HCl 1.25 mg/3 mL solution for nebulization See Rx Instructions .ROUTE .COMPLEX Qty: 270 3RF Dose Instruction: INHALE THE CONTENTS OF 1 VIAL VIA NEBULIZER 3 TIMES DAILY NEEDED FOR SHORTNESS OF BREATH/WHEEZING Rx Instructions: INHALE THE CONTENTS OF 1 VIAL VIA NEBULIZER 4 TIMES DAILY NEEDED FOR SHORTNESS OF BREATH/WHEEZING potassium chloride 20 mEq tablet extended release 20 meq PO DAILY Qty: 90 1RF lisinopril 10 mg tablet 10 mg PO DAILY Qty: 90 1RF buspirone 15 mg tablet See Rx Instructions .ROUTE .COMPLEX Qty: 180 1RF Dose Instruction: TAKE 1 TABLET BY MOUTH TWICE A DAY Rx Instructions: TAKE 1 TABLET BY MOUTH TWICE A DAY atorvastatin 40 mg tablet See Rx Instructions .ROUTE .COMPLEX Qty: 90 1RF Dose Instruction: TAKE 1 TABLET BY MOUTH EVERY DAY Rx Instructions: TAKE 1 TABLET BY MOUTH EVERY DAY montelukast 10 mg tablet See Rx Instructions .ROUTE .COMPLEX Qty: 90 1RF Dose Instruction: TAKE 1 TABLET BY MOUTH EVERY DAY Rx Instructions: TAKE 1 TABLET BY MOUTH EVERY DAY levothyroxine 88 mcg tablet See Rx Instructions .ROUTE .COMPLEX Qty: 90 1RF Dose Instruction: TAKE 1 TABLET BY MOUTH EVERY DAY Rx Instructions: TAKE 1 TABLET BY MOUTH EVERY DAY ferrous sulfate 325 mg (65 mg iron) tablet See Rx Instructions .ROUTE .COMPLEX Qty: 90 1RF Dose Instruction: TAKE 1 TABLET BY MOUTH EVERY DAY Rx Instructions: TAKE 1 TABLET BY MOUTH EVERY DAY ondansetron 4 mg tablet,disintegrating See Rx Instructions .ROUTE .COMPLEX Qty: 60 1RF Dose Instruction: DISSOLVE 1 TABLET ON THE TONGUE EVERY 8 HOURS NEEDED FOR NAUSEA/VOMITING Rx Instructions: DISSOLVE 1 TABLET ON THE TONGUE EVERY 8 HOURS NEEDED FOR NAUSEA/VOMITING diltiazem HCl 120 mg capsule,extended release 24hr See Rx Instructions .ROUTE .COMPLEX Qty: 90 1RF Dose Instruction: TAKE 1 CAPSULE BY MOUTH EVERY DAY Rx Instructions: TAKE 1 CAPSULE BY MOUTH EVERY DAY cetirizine 10 mg tablet See Rx Instructions .ROUTE .COMPLEX Qty: 90 1RF Dose Instruction: TAKE 1 TABLET BY MOUTH EVERY DAY FOR ALLERGIES Rx Instructions: TAKE 1 TABLET BY MOUTH EVERY DAY FOR ALLERGIES roflumilast 500 mcg tablet See Rx Instructions .ROUTE .COMPLEX Qty: 90 3RF Dose Instruction: TAKE 1 TABLET BY MOUTH DAILY X 90 DAYS Rx Instructions: TAKE 1 TABLET BY MOUTH DAILY X 90 DAYS albuterol sulfate 90 mcg/actuation HFA aerosol inhaler See Rx Instructions .ROUTE .COMPLEX Qty: 8.5 2RF Dose Instruction: INHALE 1-2 PUFFS BY MOUTH EVERY 4 TO 6 HOURS NEEDED FOR SHORTNESS OF BREATH Rx Instructions: INHALE 1-2 PUFFS BY MOUTH EVERY 4 TO 6 HOURS NEEDED FOR SHORTNESS OF BREATH Follow-up/Referrals: Sonia Ugalde ADVENTURE CHALLENGE INSTRUCTOR-C [Primary Care Provider] - Time of Disposition: 01:13
[2024-05-16 01:15] VITALS: PULSE 96; RESP 18
[2024-05-16] MEDS: dexAMETHasone SOD PHOS INJ 10 MG/ML 1 ML VIAL IM (01:16)
--- OUTSIDE RECORDS SUMMARY | 2024-05-16 01:20 | XMS_ITS | CONTINUITY OF CARE DOCUMENT ---
Author Name trice carnes Address Unknown Organization [facility] Address [address] [place] [address] Phone [phone] Care Team Providers Care Golf Course Patroller Name Role Phone Adithya Ramsay MD Unavailable [phone] SOILA TRAN MD Unavailable [phone] JOSE J BOSWELL DO Unavailable [phone] INSURANCE PROVIDERS Payer name Policy type / Coverage type [place] red republican [employer]ILY [employer] Medicaid 1 [id number] [place] MED[place] Medicare [id number]
--- OUTSIDE RECORDS SUMMARY | 2024-05-16 01:20 | XMS_ITS | Clinical Summary ---
Author Organization [facility] Address [address] [place] [address] Phone Care Team Providers Care Test Engineering Intern Name Role Phone Sonia Ugalde APRN Primary Care Provider [phone] Allergies Active Allergy Reactions Criticality Noted Date [...] by mouth daily. Active ergocalciferol (VITAMIN D) 89149 UNIT Capsule Vitamin D2 1,250 mcg (50,000 [...] MEDICAID [place] HU[employer] Care Teams Test Engineering Intern Relationship Specialty Start Date End Date Sonia Ugalde APRN [address] [place] [address] PCP - General Family Medicine 11/11/23
--- OUTSIDE RECORDS SUMMARY | 2024-05-16 01:20 | XMS_ITS | Encounter Summary ---
Author Organization [facility] Address [facility] [facility] 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
--- OUTSIDE RECORDS SUMMARY | 2024-05-16 01:20 | XMS_ITS | Clinical Summary ---
Author Organization [facility] Address [address] 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 ENGINEER Gender Identity Not on file Sexual Orientation Not on file Last Filed Vital Signs Vital Sign Reading Time Taken Comments Blood Pressure 128/62 06/19/2022 1:04 PM APPLICATIONS SYSTEMS ENGINEER Pulse 97 06/19/2022 1:04 PM APPLICATIONS SYSTEMS ENGINEER Temperature 36.9 ??C (98.4 ??F) 06/19/2022 1:04 PM CS T Respiratory Rate 18 06/19/2022 1:04 PM APPLICATIONS SYSTEMS ENGINEER Oxygen Saturation 98% 06/19/2022 1:04 PM APPLICATIONS SYSTEMS ENGINEER Inhaled Oxygen Concentration - - Weight 72.1 kg (158 lb 15.2 oz) 05/20/2022 3:35 AM APPLICATIONS SYSTEMS ENGINEER Height 152.4 cm (5') 05/12/2022 8:20 PM APPLICATIONS SYSTEMS ENGINEER Body Mass Index 31.04 05/12/2022 8:20 PM APPLICATIONS SYSTEMS ENGINEER Plan of Treatment Health Maintenance Due Date [...] age to complete this topic Insurance [place] [address] [place] [address] Advance Directives * Full Code (Latest Code Status on File) Date Activated Date Inactivated Comments 05/21/2022 10:44 AM * Full Code Date Activated Date Inactivated Comments 05/19/2022 12:18 PM 05/20/2022 12:53 PM Care Teams Blocker Polishing Relationship Specialty Start Date End Date Sonia Ugalde NP [address] [place] [address] PCP - General FAMILY MEDICINE SPORTS MEDICINE 05/12/22
--- OUTSIDE RECORDS SUMMARY | 2024-05-16 01:21 | XMS_ITS | Patient Health Summary ---
Author Organization [facility] Address [address] [place] [address] Care Team Providers Care Bill Board Poster Name Role Phone Gambrills Soniabecky Judge APRN-BUNCH BREAKER Primary Care Provider + Note from [facility],non-owned Affiliates and Associated Physician Practices is amultiple site organization consisting of ambulatory clinics and hospital sitesin [place], [place], [place]. This disclosure is being madepursuant to the Care Everywhere program and may not contain all information available regarding this patient. Last updated 17.[facility] Allergies * Penicillins(Rash) -Medium Criticality * Sulfa [...] Pressure Disorder * ergocalciferol (Drisdol) 1.25 MG (35935 UT) capsule Vitamin D2 1,250 mcg (50,000 [...] Reasons: Major Depressive Disorder * Oxygen(Started 05/21/2022) [place] 2 L/min into the nose continuous Reasons: [...] Recorded Patient Health Questionnaire-2 Score 3 02/28/2024 [facility] of Occupat ional Health - Occupational Stress [...] place to sleep or slept in a correction (including now)? No 04/25/2022 Sex and Gender [...] Oxygen Concentration 32% 05/08/2022 9 :49 AM SSN/SSBN WEAPONS EQUIPMENT OPERATOR Weight 69.9 kg (154 lb) 11/02/2022 5:50 AM CDT Height 152.4 cm (5') 11/02/2022 5:50 AM CDT Body Mass Index 30.08 11/02/2022 5:50 AM CDT Medical Devices Implanted Type Area Preservationist Device Identifier Shelf Expiration Date Model / Serial / Lot Screw 6.5mm 95mm Cassidy Lng Bone Sm Bone Implanted:Qty: 1 on 04/27/2022 by Luis Daniel Roca MD at [facility] [employer] [id number] / / Screw 6.5mm 110mm Cassidy Lng Bone Sm Bone Implanted:Qty: 1 on 04/27/2022 by Luis Daniel Roca MD at [facility] [employer] [id number] / / Screw Extfix 190mm 6mm Schnz Ss Spd Pnt Implanted:Qty: 1 on 04/27/2022 by Luis Daniel Roca MD at [facility] [employer] 294.68 / / Head Fem +4mm 14 Tpr 36mm Hip Oxnm Implanted:Qty: 1 on 11/02/2022 by Bhaskar Mack MD at [facility] [place] Right: Hip [employer] 06/21/2032 [id number] / / [id number] Shell Actb 52mm Hip 3 Hl Poly R3 Std Implanted:Qty: 1 on 11/02/2022 by Bhaskar Mack MD at [facility] [place] Right: Hip [employer] 07/07/2032 [id number] / / [id number] Screw 6.5mm 25mm Hip Actb Canc Sphrcl Implanted:Qty: 1 on 11/02/2022 by Bhaskar Mack MD at [facility] [place] Right: Hip [employer] 04/15/2032 [id number] / / [id number] Liner Actb R3 20d 52mm 36mm Xlpe Poly Implanted:Qty: 1 on 11/02/2022 by Bhaskar Mack MD at [facility] [place] Right: Hip [employer] 03/09/2031 [id number] / / [id number] Stem Fem 136mm Hip 135d 2 12/14 Std Ofst Implanted:Qty: 1 on 11/02/2022 by Bhaskar Mack MD at [facility] [place] Right: Hip [employer] 02/12/2028 [id number] / / [id number] Explanted Type Area Preservationist Device Identifier Shelf Expiration Date Model / Serial / Lot Screw 6.5mm 85mm Cassidy Lng Bone Sm Bone Explanted:Qty: 1 on 04/27/2022 by Luis Daniel Roca MD at [facility] [email or web address] [id number] / / Gd Pin Orth 450mm 3.2mm Cocr Xtd Acc Explanted:Qty: 2 on 04/27/[address] [facility] [email or web address] [id number] / / Procedures * ERYTHROCYTE SEDIMENTATION RATE(Performed [...] pain, right * NEURAXIAL BLOCK(Performed 11/02/2022) * [place] CONVERT HIP REVSN TO TOTAL HIP(Performed 11/02/2022) [...] acetabulum, unspecified portion of acetabulum, initial encounter ([facility]) * XR PELVIS JUDET VIEWS(Performed 07/15/2022) Performed for Closed displaced fracture of right acetabulum, unspecified portion of acetabulum, initial encounter ([facility]) * XR PELVIS JUDET VIEWS(Performed 06/03/2022) Performed for Closed displaced fracture of right acetabulum, unspecified portion of acetabulum, initial encounter ([facility]) * CARDIAC EKG ORDER(Performed 05/13/2022) * PHOSPHORUS [...] acetabulum, unspecified portion of acetabulum, initial encounter ([facility]) * FL KADIE SURGERY(Performed 04/27/2022) Performed for Closed displaced fracture of right acetabulum, unspecified portion of acetabulum, initial encounter ([facility]) * [place] OPEN BRICKLAYER SUPERVISOR FIX ACETABULAR WALL FX(Performed 04/27/2022) Performed for Closed displaced fracture of right acetabulum, unspecified portion of acetabulum, initial encounter ([facility]) * ENDOTRACHEAL TUBE NOTE(Performed 04/27/2022) * BASIC [...] acetabulum, unspecified portion of acetabulum, initial encounter ([facility]) * PT EVAL AND TREAT(Performed 04/25/2022) * [...] transverse process of lumbar vertebra, initial encounter ([facility]) * LAB HISTORICAL RESULTS-ONBASE(Performed 09/05/2015) * LAB HISTORICAL RESULTS-ONBASE(Performed 09/05/2015) * CULTURE WOUND+GRAM STAIN(Performed 12/11/2013) * CULTURE WOUND+GRAM STAIN(Performed 12/11/2013) * GRAM STAIN SMEAR(Performed 12/11/2013) Results * ERYTHROCYTE SEDIMENTATION RATE (08/04/2023 11:25 AM CDT) Pathologist [facility] Erythrocyte Sedimentation Rate Automated 7 0 - 30 MM/HR 08/04/2023 11:42 AM CDT [facility] Blood BLOOD SPECIMEN / Unknown Lab Venipuncture / Unknown 08/04/2023 11:25 AM CDT 08/04/2023 11:31 AM CDT Bhaskar Mack MD LAB - HEMATOLOGY OR DERABLES [facility] [address] [place] [address] * C-REACTIVE PROTEIN (08/04/2023 11:24 AM CDT) Pathologist [facility] C-Reactive Protein 0.09 <=0.50 mg/dL 08/04/2023 12:00 PM CDT [facility] Blood BLOOD SPECIMEN / Unknown Lab Venipuncture / Unknown 08/04/2023 11:24 AM CDT 08/04/2023 11:31 AM CDT Bhaskar Mack MD LAB - CHEMISTRY ORD ERABLES [facility] Organization Address City/State/ZIP Co de Phone Number [facility] [address] [place] [address] * XR PELVIS W RIGHT [...] LEFT 4VW OR MORE (04/21/2023 9:55 AM SSN/SSBN WEAPONS EQUIPMENT OPERATOR) Anatomical Region Laterality Modality Lower Extremity Radiographic Janie ging 04/21/2023 10:1 9 AM SSN/SSBN WEAPONS EQUIPMENT OPERATOR Narrative 04/21/2023 10:43 AM SSN/SSBN WEAPONS EQUIPMENT OPERATOR PROCEDURE: ??XR KNEE LEFT 4VW OR MORE, DATE/TIME OF EXAM: ??04/21/2023 10:15 AM, LOCATION ??[facility] INDICATION: M25.562: Pain in left knee FINDINGS: [...] MORE, DATE/TIME OF EXAM: 0:15 AM, LOCATION [facility] INDICATION: M25.562: Pain in left knee FINDINGS: [...] - 15.6 gm/dL 11/03/2022 2:56 AM CDT [facility] Hematocrit 33.5(L) 35.9 - 45.5 % 11/03/2022 2:56 AM CDT [facility] Blood BLOOD SPECIMEN / Unknown Lab Venipuncture / Unknown 11/03/2022 1:57 AM CDT 11/03/2022 2:36 AM CDT Bhaskar Mack MD LAB - HEMATOLOGY OR DERABLES Performing Organization Address City/State/[facility] Co de Phone Number [facility] [address] [place], [place] [id number] * XR PELVIS 1 OR 2VW (IN PACU) (11/02/2022 11:05 AM CDT) Only the most recent of3 resultswithin the time period is included. Anatomical Region Laterality Modality Pelvis Radiographic Janie ging 11/02/2022 11:0 6 AM CDT Narrative 11/02/2022 11:24 AM CDT PROCEDURE: ??XR PELVIS 1 OR 2VW, DATE/TIME OF EXAM: ??11/02/2022 11:06 AM, LOCATION ??[facility] INDICATION: M25.551: Pain in right hip HISTORY: [...] DATE/TIME OF EXAM: 11/02/2022 11:06 AM, LOCATION [facility] INDICATION: M25.551: Pain in right hip HISTORY: [...] (11/02/2022 8:42 AM CDT) Narrative Stephan Villa APRN-NETWORK FIREWALL ENGINEER - 11/02/2022 8:42 AM CDT Stephan Villa APRN-NETWORK FIREWALL ENGINEER ? 11/02/2022 ??8:46 AM Neuraxial Block Note [...] ??5 Staff: ?? Anesthesia Provider: ??Stephan Villa, YONATAN-NETWORK FIREWALL ENGINEER ?? - ?? performed the procedure Provider #1: ??Bhaskar Rice, DO ?? - ??performed the procedure Bhaskar Rice DO GENERAL ANESTHESIA O RDERABLES * POTASSIUM BLOOD (11/02/2022 6:08 AM CDT) Potassium 3.9 3.5 - 5.1 mmol/L 11/02/2022 6:44 AM CDT [facility] Blood BLOOD SPECIMEN / Unknown Venipuncture / Unknown 11/02/2022 6:08 AM CDT 11/02/2022 6:13 AM CDT Bhaskar Rice DO LAB - CHEMISTRY REYNA CUMMINS [facility] [address] [place] [address] * URINE MICROSCOPIC ONLY REFLEX TO CULTURE (10/30/2022 1:36 PM CDT) Only the most recent of3 resultswithin the time period is included. Reflex Status Culture to follow 10/30/2022 1:54 PM CDT [facility] RBC UA 0-2 0 - 5 # /hpf 10/30/2022 1:54 PM CDT [facility] WBC UA 0-5 0 - 5 # /hpf 10/30/2022 1:54 PM CDT [facility] Bacteria UA None Seen None Seen 10/30/2022 1:54 PM CDT [facility] Squamous Epithelial Cells 0-2 0 - 5 /hpf 10/30/2022 1:54 PM CDT [facility] Mucus UA 1+ /LPF 10/30/2022 1:54 PM CDT [facility] Urine URINE SPECIMEN OBTAINED BY CLEAN CATCH PROCEDURE / Unknown Collection / Unknown 10/30/2022 1:36 PM CDT 10/30/2022 1:38 PM CDT Narrative [facility] - 10/30/2022 1:54 PM CDT Bhaskar Mack MD LAB - URINALYSIS OR DERABLES [facility] [address] [place], [place] [id number] * (ABNORMAL) URINALYSIS REFLEX MICROSCOPIC REFLEX CULTURE (10/30/2022 1:36 PM CDT) Only the most recent of3 resultswithin the time period is included. Color UA Yellow Straw, Yellow 10/30/2022 1:50 PM CDT [facility] Clarity UA Clear Clear 10/30/2022 1:50 PM CDT [facility] Glucose UA Negative Negative 10/30/2022 1:50 PM CDT [facility] Bilirubin UA Negative Negative 10/30/2022 1:50 PM CDT [facility] Ketone UA Trace(A) Negative 10/30/2022 1:50 PM CDT [facility] Specific Superior UA 1.018 1.005 - 1.030 10/30/2022 1:50 PM CDT [facility] Blood UA Negative Negative 10/30/2022 1:50 PM CDT [facility] pH UA 5.0 5.0 - 8.0 pH 10/30/2022 1:50 PM CDT [facility] Protein UA Negative Negative 10/30/2022 1:50 PM CDT [facility] Urobilinogen UA 2.0(A) Negative mg/dL 10/30/2022 1:50 PM CDT [facility] Nitrite UA Negative Negative 10/30/2022 1:50 PM CDT [facility] Leukocyte UA Trace(A) Negative 10/30/2022 1:50 PM CDT [facility] Urine Microscopy Urine microscopy to follow 10/30/2022 1:50 PM CDT [facility] Reflex Status Culture to follow 10/30/2022 1:50 PM CDT [facility] Urine URINE SPECIMEN OBTAINED BY CLEAN CATCH PROCEDURE / Unknown Collection / Unknown 10/30/2022 1:36 PM CDT 10/30/2022 1:38 PM CDT Narrative [facility] - 10/30/2022 1:50 PM CDT Ascorbic Acid can cause false negative urine strip tests for blood, glucose, nitrite, and bilirubin. Bhaskar Mack MD LAB - URINALYSIS OR DERABLES Performing Organization Address City/[facility]/ZIP Co de Phone Number [facility] [address] [place] [address] * CULTURE URINE (10/30/2022 1:36 PM CDT) Only the most recent of3 resultswithin the time period is included. Pathologist [facility] Culture Urine <10,000 CFU/mL urogenital ming LORENZA 10/31/2022 11:05 PM CDT [facility] Urine URINE SPECIMEN OBTAINED BY CLEAN CATCH PROCEDURE / Unknown Collection / Unknown 10/30/2022 1:36 PM CDT 10/30/2022 1:38 PM CDT Bhaskar Mack MD LAB - MICROBIOLOGY ORDERABLES Performing Organization Address [facility] Co de Phone Number [facility] MICROBIOLOGY [address] [place] [address], [facility] [phone] * CULTURE MSSA/MRSA (10/16/2022 12:36 PM CDT) Pathologist [facility] Culture Negative for Staphylococcus aureus (MRSA/MSSA) 10/18/2022 1:29 PM CDT [facility]CRO[facility] Microbiology SPECIMEN FROM NASAL FOSSAE / Unknown Collection / Unknown 10/16/2022 12:36 PM CDT 10/16/2022 12:48 PM CDT Bhaskar Mack MD LAB - MICROBIOLOGY ORDERABLES Performing Organization Address City/[facility]/ZIP Co de Phone Number [facility] [address] [place] [address], [facility] [phone] * TYPE + SCREEN PANEL (10/16/2022 12:35 PM CDT) Only the most recent of3 resultswithin the time period is included. ABO Rh B POS 10/16/2022 1:37 PM CDT [facility] Comment:History checked. Antibody Screen NEG 1:37 PM CDT [facility] Blood Bank BLOOD SPECIMEN / Unknown Venipuncture / Unknown 10/16/2022 12:35 PM CDT 10/16/2022 12:48 PM CDT Bhaskar Mack MD LAB - BLOOD BANK OR DERABLES Performing Organization Address City/[facility]/ZIP Co de Phone Number [facility] [address] [place] [address] * TRANSFERRIN (10/16/2022 12:33 PM CDT) [facility] Transferrin 253 173 - 360 mg/dL 10/16/2022 1:11 PM CDT [facility] Blood BLOOD SPECIMEN / Unknown Venipuncture / Unknown 10/16/2022 12:33 PM CDT 10/16/2022 12:48 PM CDT Bhaskar Mack MD LAB - CHEMISTRY ORD ERABLES Performing Organization Address [facility] Co de Phone Number [facility] [address] [place] [address] * HEMOGLOBIN A1C (10/16/2022 12:33 PM CDT) Only the most recent of2 resultswithin the time period is included. [facility] Hemoglobin A1c 4.9 <5.7 % 10/16/2022 3:12 PM CDT [facility] Estimated Average Glucose 94 mg/dL 10/16/2022 3:12 PM CDT [facility] Blood BLOOD SPECIMEN / Unknown Venipuncture / Unknown 10/16/2022 12:33 PM CDT 10/16/2022 12:48 PM CDT Narrative [facility] - 10/16/2022 3:12 PM CDT HbA1c [...] exceeds 5% in the specimen. The [employer] assay for the measurement of HbA1c is a National Glycohemoglobin Standardization Program (NGSP) certified method. Bhaskar Mack MD LAB - CHEMISTRY ORD [employer] CorporationMATTHEW Performing Organization Address [facility] Co de Phone Number [facility] [address] [place] [address] * FRUCTOSAMINE (10/16/2022 12:33 PM CDT) [facility] Fructosamine 216 205 - 285 umol/L 10/17/2022 4:28 PM CDT [facility] ([facility]) Comment: INTERPRETIVE INFORMATION: ??Fructosamine Variations in levels of serum proteins (albumin and immunoglobulins) may affect fructosamine results. Performed By: [facility] [address] [place] [address] Hvac Sales Engineer: Anish Shepherd MD, PhD Blood BLOOD SPECIMEN / Unknown Venipuncture / Unknown 10/16/2022 12:33 PM CDT 10/16/2022 12:48 PM CDT Bhaskar Mack MD LAB - CHEMISTRY ORD CARLOS Performing Organization Address [facility]/ZIP Co de Phone Number [facility] ([facility]) [address] [place] [address] * (ABNORMAL) CBC W AUTO DIFFERENTIAL (10/16/2022 12:33 PM CDT) Only the most recent of3 resultswithin the time period is included. WBC 7.2 4.4 - 10.7 x10E9/L 10/16/2022 12:57 [facility] WBC Corrected 10/16/2022 12:57 PM [facility] RBC 4.21 3.80 - 5.20 x10E12/L 10/16/2022 12:57 PM [facility] Hemoglobin 13.6 12.0 - 15.6 gm/dL 10/16/2022 12:57 PM [facility] Hematocrit 40.8 35.9 - 45.5 % 10/16/2022 12:57 PM [facility] MCV 96.9 80.7 - 98.3 fl 10/16/2022 12:57 PM [facility] MCH 32.3 26.7 - 34.0 pg 10/16/2022 12:57 PM [facility] MCHC 33.3 30.8 - 35.9 gm/dL 10/16/2022 12:57 PM [facility] Platelet Count 265 153 - 416 x10E9/L 10/16/2022 12:57 PM [facility] RDW-CV 13.1 12.1 - 14.9 % 10/16/2022 12:57 PM [facility] MPV 10.6 9.4 - 12.9 fl 10/16/2022 12:57 PM [facility] Neutrophils % 74.6(H) 44.0 - 73.0 % 10/16/2022 12:57 PM [facility] Lymphocytes % 15.2(L) 20.0 - 43.0 % 10/16/2022 12:57 PM [facility] Monocytes % 7.8 5.0 - 13.0 % 10/16/2022 12:57 PM CDT [facility] Eosinophils % 1.5 0.0 - 6.0 % 10/16/2022 12:57 [address] [facility] Basophils % 0.6 0.0 - 2.0 % 10/16/2022 12:57 PM CDT [facility] Immature Granulocytes 0.3 0 - 1 % 10/16/2022 12:57 PM [facility] Neutrophil Absolute 5.34 2.01 - 7.14 x10E9/L 10/16/2022 12:57 PM CDT [facility] Lymphocytes Absolute 1.09 1.07 - 3.94 x10E9/L 10/16/2022 12:57 PM CDT [facility] Monocytes Absolute 0.56 0.26 - 1.07 x10E9/L 10/16/2022 12:57 PM CDT [facility] Eosinophils Absolute 0.11 0 - 0.47 x10E9/L 10/16/2022 12:57 PM CDT [facility] Basophils Absolute 0.04 0 - 0.08 x10E9/L 10/16/2022 12:57 PM CDT [facility] Immature Granulocytes Absolute 0.02 0.00 - 0.06 x10E9/L 10/16/2022 12:57 PM CDT [facility] nRBC Auto 0 /100 WBC 10/16/2022 12:57 PM CDT [facility] Blood BLOOD SPECIMEN / Unknown Venipuncture / Unknown 10/16/2022 12:33 PM CDT 10/16/2022 12:48 PM CDT Bhaskar Mack MD LAB - HEMATOLOGY OR DERABLES Performing Organization Address City/State/[facility] Co de Phone Number [facility] [address] [place] [address] * (ABNORMAL) COMPREHENSIVE METABOLIC PANEL (10/16/2022 12:33 PM CDT) Only the most recent of5 resultswithin the time period is included. [facility] Glucose 91 70 - 105 mg/dL 10/16/2022 1:11 PM CDT [facility] Sodium 142 136 - 145 mmol/L 10/16/2022 1:11 PM CDT [facility] Potassium 3.6 3.5 - 5.1 mmol/L 10/16/2022 1:11 PM CDT [facility] Chloride 106 98 - 107 mmol/L 10/16/2022 1:11 PM CDT [facility] CO2 27 23 - 31 mmol/L 10/16/2022 1:11 PM CDT [facility] Calcium 9.1 8.4 - 10.4 mg/dL 10/16/2022 1:11 PM CDT [facility] Anion Gap 9 8 - 18 mmol/L 10/16/2022 1:11 PM CDT [facility] BUN 7(L) 9.8 - 20.1 mg/dL 10/16/2022 1:11 PM CDT [facility] Creatinine 0.71 0.57 - 1.11 mg/dL 10/16/2022 1:11 PM CDT [facility] Alkaline Phosphatase 143 40 - 150 U/L 10/16/2022 1:11 PM CDT [facility] ALT 17 0 - 61 U/L 10/16/2022 1:11 PM CDT [facility] AST 18 5 - 34 U/L 10/16/2022 1:11 PM CDT [facility] Protein Total 7.0 6.4 - 8.3 gm/dL 10/16/2022 1:11 PM CDT [facility] Albumin 4.2 3.2 - 4.6 gm/dL 10/16/2022 1:11 PM CDT [facility] Bilirubin Total 0.5 0.2 - 1.2 mg/dL 10/16/2022 1:11 PM CDT [facility] eGFR by CKD-EPI >90 >=90 mL/min/1.7 3 m2 10/16/2022 1:11 PM CDT [facility] Blood BLOOD SPECIMEN / Unknown Venipuncture / Unknown 10/16/2022 12:33 PM CDT 10/16/2022 12:48 PM CDT Bhaskar Mack MD LAB - CHEMISTRY ORD ERABLES Performing Organization Address City/State/[facility] Co de Phone Number [facility] [address] [place] [address] * XR PELVIS JUDET VIEWS (08/26/2022 10:55 [...] exam. Report dictated by Baldo Duong MD (limited radiology technician). Jaun Mitchell MD have personally reviewed and interpreted this examination/study. > Interpreting Provider: Jaun Leblanc MD on 08/26/2022 11:39 AM Narrative 08/26/2022 11:39 AM CDT PROCEDURE: ??XR PELVIS JUDET VIEWS, DATE/TIME OF EXAM: ??08/26/2022 10:55 AM, LOCATION ??[facility] INDICATION: S32.401A: Closed displaced fracture of right acetabulum, unspecified portion of acetabulum, initial encounter ([facility]) ADDITIONAL CLINICAL INFORMATION: Ordering Provider Reason For [...] VIEWS, DATE/TIME OF EXAM: 08/26/2022 10:55AM, LOCATION [facility] INDICATION: S32.401A: Closed displaced fracture of right acetabulum, unspecified portion of acetabulum, initial encounter ([facility]) ADDITIONAL CLINICAL INFORMATION: Ordering Provider Reason For [...] exam. Report dictated by Baldo Duong MD (limited radiology technician). Jaun Mitchell MD have personally reviewed and interpreted this examination/study. > Interpreting Provider: Jaun Leblanc MD on 08/26/2022 11:39 AM Luis Daniel Roca MD DIAGNOSTIC IMAGING O RDERABLES * CARDIAC EKG ORDER (05/13/2022 4:46 PM SSN/SSBN WEAPONS EQUIPMENT OPERATOR) Only the most recent of2 resultswithin the time period is included. Narrative 05/13/2022 4:46 PM SSN/SSBN WEAPONS EQUIPMENT OPERATOR Ordered by an unspecified provider. Scanned Document CARDIAC SERVICES ORD ERABLES * (ABNORMAL) CBC W/O DIFFERENTIAL (05/10/2022 4:19 AM SSN/SSBN WEAPONS EQUIPMENT OPERATOR) Only the most recent of8 resultswithin the time period is included. WBC 7.0 3.5 - 10.5 10? 3 /uL 05/10/2022 2:56 PM [facility] RBC 3.31(L) 3.80 - 5.20 10? 6 /uL 05/10/2022 2:56 PM [facility] Hemoglobin 9.9(L) 12.0 - 15.6 g/dL 05/10/2022 2:56 PM [facility] Hematocrit 31.0(L) 35.0 - 45.0 % 05/10/2022 2:56 PM [facility] MCV 93.7 80.7 - 98.3 fL 05/10/2022 2:56 PM [facility] MCH 29.9 26.7 - 34.0 pg 05/10/2022 2:56 PM [facility] MCHC 31.9 30.8 - 35.9 g/dL 05/10/2022 2:56 PM [facility] RDW-SD 47.1 36.0 - 50.0 fL 05/10/2022 2:56 PM [facility] RDW-CV 13.8 11.2 - 14.8 % 05/10/2022 2:56 PM [facility] Platelet Count 519(H) 150 - 400 10? 3 /uL 05/10/2022 2:56 PM [facility] MPV 10.1 9.4 - 12.9 fL 05/10/2022 2:56 PM [facility] nRBC Absolute 0.00 0 10? 3 /uL 05/10/2022 2:56 PM [facility] nRBC Auto 0.0 0 /100 WBC 05/10/2022 2:56 PM [facility] Blood BLOOD SPECIMEN / Unknown Venipuncture / Unknown 05/10/2022 4:19 AM SSN/[employer]BN [employer] EQUIPMENT OPERATOR 05/10/2022 4:53 AM SSN/[employer] EQU[employer]MENT OPERATOR Margarita Espinal MD LAB - HEMATOLOGY ORD CARLOS Performing Organization Address City/[facility]/ZIP Co de Phone Number [address] [address], [place] [phone] * PHOSPHORUS BLOOD (05/10/2022 4:19 AM SSN/SSBN [employer] EQUIPMENT OPERATOR) Only the most recent of3 resultswithin the time period is included. Phosphorus 3.7 2.9 - 5.1 mg/dL 05/10/2022 5:50 AM SSN/SSBN WEAPONS EQUIPMENT OPERATOR [facility] Blood BLOOD SPECIMEN / Unknown Venipuncture / Unknown 05/10/2022 4:19 AM SSN/SSBN WEAPONS EQUIPMENT OPERATOR 05/10/2022 5:02 AM SSN/SSBN WEAPONS EQUIPMENT OPERATOR Margarita Espinal MD LAB - CHEMISTRY REYNA CUMMINS Performing Organization Address [facility] Co de Phone Number [address] [address], [place] [phone] * MAGNESIUM BLOOD (05/10/2022 4:19 AM SSN/SSBN WEAPONS EQUIPMENT OPERATOR) Only the most recent of3 resultswithin the time period is included. Magnesium 1.7 1.6 - 2.6 mg/dL 05/10/2022 5:50 AM SSN/SSBN WEAPONS EQUIPMENT OPERATOR [facility] Blood BLOOD SPECIMEN / Unknown Venipuncture / Unknown 05/10/2022 4:19 AM SSN/SSBN WEAPONS EQUIPMENT OPERATOR 05/10/2022 5:02 AM SSN/SSBN WEAPONS EQUIPMENT OPERATOR Margarita Espinal MD LAB - CHEMISTRY REYNA CUMMINS Performing Organization Address [facility]/ZIP Co de Phone Number [address] [address], [place] [phone] * (ABNORMAL) BASIC METABOLIC PANEL (CALCIUM TOTAL) (05/02/2022 3:43 AM SSN/SSBN WEAPONS EQUIPMENT OPERATOR) Only the most recent of7 resultswithin the time period is included. BUN 8 7 - 26 mg/dL 05/02/2022 4:34 AM [facility] Creatinine 0.56 0.56 - 0.96 mg/dL 05/02/2022 4:34 AM [facility] Sodium 141 136 - 145 mmol/L 05/02/2022 4:34 AM [facility] Potassium 3.2(L) 3.5 - 4.5 mmol/L 05/02/2022 4:34 AM [facility] Chloride 101 98 - 107 mmol/L 05/02/2022 4:34 AM [facility] CO2 31(H) 22 - 29 mmol/L 05/02/2022 4:34 AM [facility] Glucose 156(H) 70 - 115 mg/dL 05/02/2022 4:34 AM [facility] Calcium 8.6 8.4 - 10.2 mg/dL 05/02/2022 4:34 AM [facility] Anion Gap 12 8 - 18 05/02/2022 4:34 AM [facility] BUN/Creatinine Ratio 14 7 - 23 05/02/2022 4:34 AM [facility] Osmolality Calculated 294 270 - 300 mOsm/kg 05/02/2022 4:34 AM [facility] eGFR by CKD-EPI >90 >=90 mL/min/1.7 3 m2 05/02/2022 4:34 AM [facility] Blood BLOOD SPECIMEN / Unknown Lab Venipuncture / Unknown 05/02/2022 3:43 AM SSN/SSBN WEAPONS EQUIPMENT OPERATOR 05/02/2022 4:04 AM SSN/SSBN WEAPONS EQUIPMENT OPERATOR Sonia Covarrubias MD LAB - CHEMISTRY ORDE MARIA G [facility] Organization Address City/State/ZIP Co de Phone Number [facility] [address] [place] [address], [facility] [phone] * PREPARE (CROSSMATCH) RBC UNIT(S), 2 Units (04/29/2022 1:17 AM SSN/SSBN WEAPONS EQUIPMENT OPERATOR) Only the most recent of3 resultswithin the time period is included. Unit Description N/A [facility] Blood Bank BLOOD SPECIMEN / Unknown 04/25/2022 3:26 AM SSN/SSBN WEAPONS EQUIPMENT OPERATOR Imtiaz Aguirre MD LAB - BLOOD BANK OR DERABLES Performing Organization Address City/[facility]/ZIP Co de Phone Number [facility] [address] [place] [address], [place] [phone] * FL KADIE SURGERY (04/27/2022 9:32 AM SSN/SSBN WEAPONS EQUIPMENT OPERATOR) Narrative [facility] RAD[facility] - 04/27/2022 9:33 AM SSN/SSBN WEAPONS EQUIPMENT OPERATOR Fluoroscopy was used for this exam in the OR. Please see the Operative report. Luis Daniel Roca MD FLUOROSCOPY ORDERABL ES Performing Organization Address [facility]/ZIP Co de Phone Number [facility] * ETT LINE PERFORMABLE (04/27/2022 7:30 AM SSN/SSBN WEAPONS EQUIPMENT OPERATOR) Narrative Peter Monroy MD - 04/27/2022 7:30 AM SSN/SSBN WEAPONS EQUIPMENT OPERATOR Peter Monroy MD ? 04/27/2022 ??8:01 AM Endotracheal Tube Placement: ? Patient Location: OR. Intubation Event Date/Time: ??04/27/2022 7:30 AM Procedure: intubation ([id number]). Procedure Section: ?? Induction: standard IV Patient [...] TSH REFLEX FREE T4 (04/26/2022 2:29 AM SSN/SSBN WEAPONS EQUIPMENT OPERATOR) TSH 2.807 0.350 - 4.940 uIU/mL 04/26/2022 4:34 AM SSN/SSBN WEAPONS EQUIPMENT OPERATOR [facility] Blood BLOOD SPECIMEN / Unknown Lab Venipuncture / Unknown 04/26/2022 2:29 AM SSN/SSBN WEAPONS EQUIPMENT OPERATOR 04/26/2022 3:45 AM SSN/SSBN WEAPONS EQUIPMENT OPERATOR Chanel Hartman SOUND ENGINEER-BUNCH BREAKER LAB - CHEMISTRY O RDERABLES [facility] [address] [place] [address], [facility] [phone] * Moderate Sedation (04/25/2022 6:41 AM SSN/SSBN WEAPONS EQUIPMENT OPERATOR) Narrative Staci Henriquez MD - 04/25/2022 6:41 AM SSN/SSBN WEAPONS EQUIPMENT OPERATOR Staci Henriquez MD ? 04/25/2022 ??6:44 AM Moderate Sedation Date/Time: 04/25/2022 6:41 AM Performed by: Staci Henriquez MD Authorized by: Staci Henriquez MD Consent: ??Consent obtained: ??Written and verbal ??Consent given by: ??Patient ??Risks discussed: ??Dysrhythmia, inadequate sedation, nausea, prolonged hypoxia resulting in organ damage, respiratory compromise necessitating ventilatory assistance and intubation, vomiting, prolonged sedation necessitating reversal and allergic reaction [place] protocol: ??Procedure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
--- OUTSIDE RECORDS SUMMARY | 2024-05-16 01:21 | XMS_ITS | Clinical Summary ---
Author Organization [facility] [employer] Address [address] [place] [address] Care Team Providers Care Auto Radiator Specialist Name Role Phone Chris Ugaldebecky Judge APRN-LINE CONTROLLER Primary Care Provider + Source Comments [facility] [employer],non-owned Affiliates and Associated Physician Practices is amultiple site organization consisting of ambulatory clinics and hospital sitesin [place], [place], [place] and [place]. This disclosure is being madepursuant to the Care Everywhere program and may not contain all information available regarding this patient. Last updated 17.[facility] [employer] Allergies Active Allergy Reactions Criticality Noted Date [...] Pressure Disorder Active ergocalciferol (Drisdol) 1.25 MG (30913 UT) capsuleIndications: Vitamin D Deficiency Vitamin D2 [...] Major Depressive Disorder Active OxygenIndications:c opd/ sob [place] 2 L/min into the nose continuous Reasons: [...] Type Department Care Team Description 04/26/2024 Telephone [facility] - Orthopedics [address] [place] [address] Jaylin Rosa RN Referral 04/24/2024 Travel 03/27/2024 Travel 02/28/2024 11:45 AM SENIOR PROFESSIONAL SERVICES CONSULTANT Office Visit [facility] - Orthopedic Surgery [address] [place] [address] Rodrick Presley MD Lumbar radiculopathy [...] Recorded Patient Health Questionnaire-2 Score 3 02/28/2024 [facility] - Occupational Stress [...] place to sleep or slept in a retirement (including now)? No 04/25/2022 Sex and Gender [...] Oxygen Concentration 32% 05/08/2022 9 :49 AM SENIOR PROFESSIONAL SERVICES CONSULTANT Weight 69.9 kg (154 lb) 11/02/2022 5:50 AM CDT Height 152.4 cm (5') 11/02/2022 5:50 AM CDT Body Mass Index 30.08 11/02/2022 5:50 AM CDT Plan of Treatment Upcoming Encounters Date Type Department Care Team (Late st Contact Info) Description 08/09/2024 2:00 PM CDT Office Visit [facility] - Orthopedic Surgery [address] [place] [address] Bhaskar Mack MD [address] [facility] [address] [place] [address] Health Maintenance Due Date Last Done Comments [...] this topic Medical Devices Implanted Type Area Retirement Assistant Device Identifier Shelf Expiration Date Model / Serial / Lot Screw 6.5mm 95mm Cassidy Lng Bone Sm Bone Implanted:Qty: 1 on 04/27/2022 by Luis Daniel Roca MD at [facility] [employer] [id number] / / Screw 6.5mm 110mm Cassidy Lng Bone Sm Bone Implanted:Qty: 1 on 04/27/2022 by Luis Daniel Roca MD at [facility] James & NephHyperformix [facility] [id number] / / Screw Extfix 190mm 6mm [facility] Pnt Implanted:Qty: 1 on 04/27/2022 by Luis Daniel Roca MD at [facility] Synthes Usa 294.68 / / Head Fem +4mm 14 Tpr 36mm Hip Oxnm Implanted:Qty: 1 on 11/02/2022 by Bhaskar Mack MD at [facility] Right: Hip James [employer] Nephew Inc 06/21/2032 [id number] / / [id number] Shell Actb 52mm Hip 3 Hl Poly R3 Std Implanted:Qty: 1 on 11/02/2022 by Bhaskar Mack MD at [facility] Right: Hip [employer] Nephew Inc 07/07/2032 [id number] / / [id number] Screw 6.5mm 25mm Hip Actb Canc Sphrcl Implanted:Qty: 1 on 11/02/2022 by Bhaskar Mack MD at [facility] Right: Hip James [employer] Nephew Inc 04/15/2032 [id number] / / [id number] Liner Actb R3 20d 52mm 36mm Xlpe Poly Implanted:Qty: 1 on 11/02/2022 by Bhaskar Mack MD at [facility] Right: Hip [employer]hew Inc 03/09/2031 [id number] / / [id number] Stem Fem 136mm Hip 135d 2 03/25 Std Ofst Implanted:Qty: 1 on 11/02/2022 by Bhaskar Mack MD at [facility] Right: Hip [employer]hew Inc 02/12/2028 [id number] / / [id number] Explanted Type Area Retirement Assistant Device Identifier Shelf Expiration Date Model / Serial / Lot Screw 6.5mm 85mm Cassidy Lng Bone Sm Bone Explanted:Qty: 1 on 04/27/2022 by Luis Daniel Roca MD at [facility] [employer]ak [employer] Topp[employer]. [id number] / / Gd Pin Orth 450mm 3.2mm Cocr Xtd Acc Explanted:Qty: 2 on 04/27/2022 at [facility] [employer]. [id number] / / Advance Directives * Full Code [...] 5:05 AM 05/12/2022 7:18 PM Care Teams Auto Radiator Specialist Relationship Specialty Start Date End Date Sonia Ugalde, CAN VACUUM TESTER-LINE CONTROLLER [address] [place] [address] PCP - General Nurse Practitioner Family 04/24/22
--- OUTSIDE RECORDS SUMMARY | 2024-05-16 01:21 | XMS_ITS | Referral Summary ---
Author Organization [facility] Address [address] [facility] [place] [address] Care Team Providers Care High School Social Studies Teacher Name Role Phone Sonia Ugalde ASSOCIATE MANAGER-MEDICAL BILLING MANAGER Primary Care Provider + Source Comments [facility],non-owned Affiliates and Associated Physician Practices is amultiple site organization consisting of ambulatory clinics and hospital sitesin [place], [place], [place] and [place]. This disclosure is being madepursuant to the Care Everywhere program and may not contain all information available regarding this patient. Last updated 17.[facility] [employer] Encounters Date Type Department Care Team Description 04/26/2024 Telephone [facility] - [facility] [address] [place] [address] Jaylin Rosa RN Referral 04/24/2024 Travel 03/27/2024 Travel 02/28/2024 Travel 02/28/2024 11:45 AM SHEET METAL HELPER Office Visit [facility] - [facility] [address] [place] [address] Rodrick Presley MD Lumbar radiculopathy [...] Pressure Disorder Active ergocalciferol (Drisdol) 1.25 MG (72967 UT) capsuleIndications: Vitamin D Deficiency Vitamin D2 [...] Major Depressive Disorder Active OxygenIndications:c opd/ sob [place] 2 L/min into the nose continuous Reasons: [...] Oxygen Concentration 32% 05/08/2022 9 :49 AM SHEET METAL HELPER Weight 69.9 kg (154 lb) 11/02/2022 5:50 [...] [facility] [address] [place] [address] Bhaskar Mack MD [address] [facility] [address] [place] [address] Medical Devices Implanted Type Area Catering Barista Device Identifier Shelf Expiration Date Model / Serial / Lot Screw 6.5mm 95mm Cassidy Lng Bone Sm Bone Implanted:Qty: 1 on 04/27/2022 by Luis Daniel Roca MD at [facility] Quantum OPS & NephBookeen [facility] [id number] / / Screw 6.5mm 110mm Cassidy Lng Bone Sm Bone Implanted:Qty: 1 on 04/27/2022 by Luis Daniel Roca MD at [facility] [employer] OPS & NephBookeen [facility] [id number] / / Screw Extfix 190mm 6mm Schnz Ss Spd Pnt Implanted:Qty: 1 on 04/27/2022 by Luis Daniel Roca MD at [facility] Synthes Usa 294.68 / / Head Fem +4mm 03/25 Tpr 36mm Hip Oxnm Implanted:Qty: 1 on 11/02/2022 by Bhaskar Mack MD at [facility] Right: Hip [employer]hew Inc 06/21/2032 [id number] / / [id number] Shell Actb 52mm Hip 3 Hl Poly R3 Std Implanted:Qty: 1 on 11/02/2022 by Bhaskar Mack MD at [facility] Right: Hip James [employer] Inc 07/07/2032 [id number] / / [id number] Screw 6.5mm 25mm Hip Actb Canc Sphrcl Implanted:Qty: 1 on 11/02/2022 by Bhaskar Mack MD at [facility] Right: Hip [employer] Inc 04/15/2032 [id number] / / [id number] Liner Actb R3 20d 52mm 36mm Xlpe Poly Implanted:Qty: 1 on 11/02/2022 by Bhaskar Mack MD at [facility] Right: Hip [employer] Inc 03/09/2031 [id number] / / [id number] Stem Fem 136mm Hip 135d 2 12/14 Std Ofst Implanted:Qty: 1 on 11/02/2022 by Bhaskar Mack MD at [facility] Right: Hip [employer] Inc 02/12/2028 [id number] / / [id number] Explanted Type Area Catering Barista Device Identifier Shelf Expiration Date Model / Serial / Lot Screw 6.5mm 85mm Cassidy Lng Bone Sm Bone Explanted:Qty: 1 on 04/27/2022 by Luis Daniel Roca MD at [facility] [id number] / / Gd Pin Orth 450mm 3.2mm Cocr Xtd Acc Explanted:Qty: 2 on 04/27/2022 at [facility] [id number] / / Advance Directives * Full Code [...] 5:05 AM 05/12/2022 7:18 PM Care Teams High School Social Studies Teacher Relationship Specialty Start Date End Date Sonia Ugalde, ASSOCIATE MANAGER-MEDICAL BILLING MANAGER [address] [place] [address] PCP - General Nurse Practitioner Family 04/24/22
[2024-05-16] MEDS: IPRATROPIUM 0.5 MG/ALBUTEROL SULFATE 2.5 MG AMPUL.NEB 3 ML INHALATION (01:22)
[2024-05-16 01:24] VITALS: PULSE 100; RESP 18
[2024-05-16 01:49] VITALS: O2SAT 97
[2024-05-16 01:51] VITALS: BP 101/67; PULSE 105; RESP 18; O2SAT 96
== END 2024-05-16 01:53 | disposition home or self-care (01) ==
LOC: ANHED 05-16 01:19
PROVIDERS: Emergency Provider Emergency Medicine; PCP Nurse Practitioner
DX: J44.9 Chronic obstructive pulmonary disease, unspecified (principal); J96.11 Chronic respiratory failure with hypoxia; Z99.81 Dependence on supplemental oxygen; I10 Essential (primary) hypertension; E61.1 Iron deficiency; E55.9 Vitamin D deficiency, unspecified; E03.9 Hypothyroidism, unspecified; E78.5 Hyperlipidemia, unspecified; E78.2 Mixed hyperlipidemia; E66.3 Overweight; Z68.27 Body mass index [BMI] 27.0-27.9, adult; G25.81 Restless legs syndrome; R73.03 Prediabetes; G47.33 Obstructive sleep apnea (adult) (pediatric); K21.9 Gastro-esophageal reflux disease without esophagitis; K44.9 Diaphragmatic hernia without obstruction or gangrene; M17.0 Bilateral primary osteoarthritis of knee; M19.031 Primary osteoarthritis, right wrist; M85.80 Other specified disorders of bone density and structure, unspecified site; Z90.710 Acquired absence of both cervix and uterus; Z85.42 Personal history of malignant neoplasm of other parts of uterus; Z87.891 Personal history of nicotine dependence; R00.0 Tachycardia, unspecified; I49.1 Atrial premature depolarization; R94.31 Abnormal electrocardiogram [ECG] [EKG]
CPT/HCPCS: 36415; 71046; 80053; 84484; 85025; 93005; 94640; 96372; 96374; 99284; J1100

== ENCOUNTER 2024-06-28 12:36 | Outpatient (CLI) | payer MEDICARE, MEDICAID, SELFPAY ==
[2024-06-28] VITALS (8 sets, daily range): PULSE 80–110; O2SAT 85–92
--- NOTE | 2024-06-28 13:25 | HOMEO2EVAL ---
Evaluation was performed at [facility] Home Oxygen Evaluation RC: Home Oxygen (O2) Evaluation Start: 06/28/24 13:12 Freq: Status: Active Protocol: RPE Activity Type Activity Date Activity User E-sign Co-sign Detail Recorded Client Recorded Date Recorded By Document 06/28/24 12:35 [email or web address] [email or web address] 06/28/24 13:24 DJO Document 06/28/24 12:40 [email or web address] 06/28/24 13:24 DJO Document 06/28/24 12:45 [email or web address] [email or web address] 06/28/24 13:24 DJO Document 06/28/24 12:50 [email or web address] [email or web address] 06/28/24 13:24 DJO Document 06/28/24 12:55 [email or web address] [email or web address] 06/28/24 13:24 DJO Document 06/28/24 13:00 [email or web address] [email or web address] 06/28/24 13:24 DJO Document 06/28/24 13:05 [email or web address] [email or web address] 06/28/24 13:24 DJO Document 06/28/24 13:15 [email or web address] [email or web address] 06/28/24 13:24 DJO 06/28/24 06/28/24 06/28/24 12:35 12:40 12:45 Home O2 Evaluation [Oxygen] -Test Phase Resting Resting Resting -Oxygen Delivery Room Air Nasal Cannula Nasal Cannula -Oxygen Flow Rate (L/min) 1 2 [Pulse Oximetry] -Pulse Oximetry (90-100 %) 87 L 87 L 92 [Pulse Rate] -Pulse Rate (60-100 beats/min) 86 80 82 [Evaluation] -Activity Tolerance [Exercise] -Ambulation Distance (feet) -Ambulation Distance (meters) [Charges] -Evaluation Charges O2 Evaluation by Pulmonary 06/28/24 06/28/24 06/28/24 12:50 12:55 13:00 Home O2 Evaluation [Oxygen] -Test Phase Exercise Exercise Exercise -Oxygen Delivery Nasal Cannula Nasal Cannula Nasal Cannula -Oxygen Flow Rate (L/min) 2 3 4 [Pulse Oximetry] -Pulse Oximetry (90-100 %) 85 L 86 L 87 L [Pulse Rate] -Pulse Rate (60-100 beats/min) 98 100 108 H [Evaluation] -Activity Tolerance [Exercise] -Ambulation Distance (feet) -Ambulation Distance (meters) [Charges] -Evaluation Charges 06/28/24 06/28/24 13:05 13:15 Home O2 Evaluation [Oxygen] -Test Phase Exercise Resting -Oxygen Delivery Nasal Cannula Nasal Cannula -Oxygen Flow Rate (L/min) 5 2 [Pulse Oximetry] -Pulse Oximetry (90-100 %) 92 92 [Pulse Rate] -Pulse Rate (60-100 beats/min) 110 H 88 [Evaluation] -Activity Tolerance Fair Fair [Exercise] -Ambulation Distance (feet) 400 -Ambulation Distance (meters) 121.91 [Charges] -Evaluation Charges
--- OUTSIDE RECORDS SUMMARY | 2024-06-28 14:02 | XMS_ITS | Clinical Summary ---
Author Organization [facility] Address [address] [place] [address] Care Team Providers Care 21 Dealer Name Role Phone Sonia Ugalde NP Primary Care Provider [phone] Allergies Active Allergy Reactions Criticality Noted Date [...] Nose Inflammation Active vitamin D2, ergocalciferol, (DRISDOL) 02477 UNITS capsuleIndications: supplement Take 50,000 Units by [...] file Legal Sex Female 5:53 PM ASSOCIATE DIRECTOR REGULATORY AFFAIRS Gender Identity Not on file Sexual Orientation Not on file Last Filed Vital Signs Vital Sign Reading Time Taken Comments Blood Pressure 128/62 06/19/2022 1:04 PM ASSOCIATE DIRECTOR REGULATORY AFFAIRS Pulse 97 06/19/2022 1:04 PM ASSOCIATE DIRECTOR REGULATORY AFFAIRS Temperature 36.9 C (98.4 F) 06/19/2022 1:04 PM ASSOCIATE DIRECTOR REGULATORY AFFAIRS Respiratory Rate 18 06/19/2022 1:04 PM ASSOCIATE DIRECTOR REGULATORY AFFAIRS Oxygen Saturation 98% 06/19/2022 1:04 PM ASSOCIATE DIRECTOR REGULATORY AFFAIRS Inhaled Oxygen Concentration - - Weight 72.1 kg (158 lb 15.2 oz) 05/20/2022 3:35 AM ASSOCIATE DIRECTOR REGULATORY AFFAIRS Height 152.4 cm (5') 05/12/2022 8:20 PM ASSOCIATE DIRECTOR REGULATORY AFFAIRS Body Mass Index 31.04 05/12/2022 8:20 PM ASSOCIATE DIRECTOR REGULATORY AFFAIRS Plan of Treatment Health Maintenance Due Date [...] age to complete this topic Insurance MEDICAID HUMAN Advance Directives * Full Code (Latest Code Status on File) Date Activated Date Inactivated Comments 05/21/2022 10:44 AM * Full Code Date Activated Date Inactivated Comments 05/19/2022 12:18 PM 05/20/2022 12:53 PM Care Teams 21 Dealer Relationship Specialty Start Date End Date Sonia Ugalde NP [address] [place] [address] PCP - General FAMILY MEDICINE SPORTS MEDICINE 05/12/22
--- OUTSIDE RECORDS SUMMARY | 2024-06-28 14:02 | XMS_ITS | Encounter Summary ---
Author Organization [facility] Address [address] [place] [address] Care Team Providers Care Gravity Prospecting Operator Helper Name Role Phone Sonia Ugalde NP Primary Care Provider [phone] Encounter Details Date Type Department Care Team (Late st Contact Info) Description 09/17/2018 Abstract [facility] CONVERSION [address] [place] [address] , Generic Conversion, Social History Tobacco Use Types Packs/Day Years Used Date Smoking Tobacco: Never Assessed Comments Unknown Sex and Gender Information Value Date Recorded Sex Assigned at Not on file Legal Sex Female 5:53 PM CRYOGENICS REPAIRER Gender Identity Not on file Sexual Orientation Not on file documented as of this encounter Plan of Treatment Not on file documented as of this encounter Visit Diagnoses Not on filedocumented in this encounter Care Teams Gravity Prospecting Operator Helper Relationship Specialty Start Date End Date Sonia Ugalde NP [address] [place] [address] PCP - General FAMILY MEDICINE SPORTS MEDICINE 05/12/22 documented as of this encounter
--- OUTSIDE RECORDS SUMMARY | 2024-06-28 14:02 | XMS_ITS | CONTINUITY OF CARE DOCUMENT ---
Author Name trice carnes Address Unknown Organization [facility] Address [address] [facility] [address] [place] [address] Phone [phone] Care Team Providers Care Cash Applications Coordinator Name Role Phone Adithya Ramsay MD Unavailable [phone] SOILA TRAN MD Unavailable [phone] JOSE J BOSWELL DO Unavailable INSURANCE PROVIDERS Payer name Policy type / Coverage type [place] red green party ID HEALTHCARE AND FAMILY SERVICES Medicaid 1 [id number] [place] MED[place] Medicare [id number]
--- OUTSIDE RECORDS SUMMARY | 2024-06-28 14:02 | XMS_ITS | Clinical Summary ---
Author Organization [facility] Address [address] [place] [address] Phone Care Team Providers Care Film Composer Name Role Phone Sonia Ugalde APRN Primary Care Provider [phone] Allergies Active Allergy Reactions Criticality Noted Date [...] by mouth daily. Active ergocalciferol (VITAMIN D) 91609 UNIT Capsule Vitamin D2 1,250 mcg (50,000 [...] 108 11/11/2023 11:22 AM CDT Temperature 37.7 C (99.8 F) 11/11/2023 10:09 AM CDT Respiratory Rate 24 11/11/2023 11:22 AM CDT [...] 1950 Hepatitis C Virus (HCV) Screening 1950 Mammogram 1952 Colonoscopy 1997 Colorectal Cancer Screening 1997 Cologuard 2002 Immunochemical Fecal Occult Blood 2002 Zoster Immunization (2 of 2) 03/27/2018, [...] patient's age to complete this topic Insurance MEDICARE C HUMANA MED[place] MED[place] HUMANA Care Teams Film Composer Relationship Specialty Start Date End Date Sonia Ugalde APRN [address] [place] [address] PCP - General Family Medicine 11/11/23
--- OUTSIDE RECORDS SUMMARY | 2024-06-28 14:02 | XMS_ITS | Clinical Summary ---
Author Organization [facility] [employer] Address [address] [place] [address] Care Team Providers Care Ip Attorney Name Role Phone Chris Ugaldebecky Judge APRN-FOLDER MACHINE OPERATOR Primary Care Provider + Source Comments [facility]non-owned Affiliates and Associated Physician Practices is amultiple site organization consisting of ambulatory clinics and hospital sitesin [place], [place], [place] and [place]. This disclosure is being madepursuant to the Care Everywhere program and may not contain all information available regarding this patient. Last updated 17.[facility] Allergies Active Allergy Reactions Criticality Noted Date [...] Pressure Disorder Active ergocalciferol (Drisdol) 1.25 MG (48765 UT) capsuleIndications: Vitamin D Deficiency Vitamin D2 [...] Major Depressive Disorder Active OxygenIndications:c opd/ sob [place] 2 L/min into the nose continuous Reasons: [...] Type Department Care Team Description 04/26/2024 Telephone [facility] - [facility] [address] [facility] [facility] [place] [address] Jaylin Rosa RN Referral 04/24/2024 Travel from Last 3 Months Family History [...] Recorded Patient Health Questionnaire-2 Score 3 02/28/2024 [facility] - Occupational Stress Questionnaire Answer Date Recorded [...] 78 11/26/2022 1:11 PM CDT Temperature 36.4 C (97.6 F) 11/26/2022 1:11 PM CDT Respiratory Rate 16 11/26/2022 1:11 PM CDT Oxygen Saturation 97% 11/26/2022 1:11 PM CDT Inhaled Oxygen Concentration 32% 05/08/2022 9 :49 AM MELTER LOADER Weight 69.9 kg (154 lb) 11/02/2022 5:50 AM CDT Height 152.4 cm (5') 11/02/2022 5:50 AM CDT Body Mass Index 30.08 11/02/2022 5:50 AM CDT Plan of Treatment Upcoming Encounters Date Type Department Care Team (Late st Contact Info) Description 08/09/2024 2:00 PM CDT Office Visit [facility] - Orthopedic Surgery [address] [place] [address] Bhaskar Mack MD [address] [address] Health Maintenance Due Date Last Done Comments [...] history exists DEPRESSION SCREENING 04/12/2024 MEDICARE AWV CALENDAR YEAR 2024 Respiratory Syncytial Virus (RSV) [...] complete this topic MENINGOCOCCAL (Group B) VACCINE SHARED DECISION-MAKING Aged Out No longer eligible based on patient's age to complete this topic MENINGOCOCCAL GROUPS A/C/Y/W VACCINE Aged Out No longer eligible based on patient's age to complete this topic Medical Devices Implanted Type Area Customer Service Cashier Device Identifier Shelf Expiration Date Model / Serial / Lot Screw 6.5mm 95mm Cassidy Lng Bone Sm Bone Implanted:Qty: 1 on 04/27/2022 by Luis Daniel Roca MD at [facility] [employer] [id number] / / Screw 6.5mm 110mm Cassidy Lng Bone Sm Bone Implanted:Qty: 1 on 04/27/2022 by Luis Daniel Roca MD at [facility] MD-IT & Nephew Inc [id number] / / Screw Extfix 190mm 6mm [facility] Ss Spd Pnt Implanted:Qty: 1 on 04/27/2022 by Luis Daniel Roca MD at [facility] Synthe[employer]sa 294.68 / / Head Fem +4mm /14 Tpr 36mm Hip Oxnm Implanted:Qty: 1 on 11/02/2022 by Bhaskar Mack MD at [facility] Right: Hip James [employer] Nephew Inc 06/21/2032 [id number] / / [id number] Shell Actb 52mm Hip 3 Hl Poly R3 Std Implanted:Qty: 1 on 11/02/2022 by Bhaskar Mack MD at [facility] Right: Hip James [employer] Inc 07/07/2032 [id number] / / [id number] Screw 6.5mm 25mm Hip Actb Canc Sphrcl Implanted:Qty: 1 on 11/02/2022 by Bhaskar Mack MD at [facility] Right: Hip [employer] Inc 04/15/2032 [id number] / / [id number] Liner Actb R3 20d 52mm 36mm Xlpe Poly Implanted:Qty: 1 on 11/02/2022 by Bhaskar Mack MD at [facility] Right: Hip [employer] Inc 03/09/2031 [id number] / / [id number] Stem Fem 136mm Hip 135d 2 03/25 Std Ofst Implanted:Qty: 1 on 11/02/2022 by Bhaskar Mack MD at [facility] Right: Hip [employer]hew Inc 02/12/2028 [id number] / / [id number] Explanted Type Area Customer Service Cashier Device Identifier Shelf Expiration Date Model / Serial / Lot Screw 6.5mm 85mm Cassidy Lng Bone Sm Bone Explanted:Qty: 1 on 04/27/2022 by Luis Daniel Roca MD at [facility] MD-IT [employer] [id number] / / Gd Pin Orth 450mm 3.2mm Cocr Xtd Acc Explanted:Qty: 2 on 04/27/2022 at [facility] MD-IT & WorldDoc [facility] [id number] / / Advance Directives * Full Code [...] AM 05/12/2022 7:18 PM Care Teams Ip Attorney Relationship Specialty Start Date End Date Sonia Ugalde, MAIL FORWARDING SYSTEM MARKUP CLERK-FOLDER MACHINE OPERATOR [address] [place] [address] PCP - General Nurse Practitioner Family 04/24/22
--- OUTSIDE RECORDS SUMMARY | 2024-06-28 14:02 | XMS_ITS | Continuity of Care Document ---
[facility] Organization [facility] Address [address] [place] [address] Phone Care Team Providers Care Office Service Coordinator Name Role Phone Radha Thomason MD Unavailable Unavailabl e Advance Directives Directive Yes / No Effective Date File Name No Information Encounters Encounter Description Practice Location Reason(s) For Visit Diagnoses Date Provider Providers Copied on Encounter [facility], [address], [place], [place], [id number], [place] tel:[phone] [place] No Information Paddy Garcia. [address] [place], [place], [id number]. tel:[phone] Family History Family Member Type Diagnosis Age At Onset No Information Payers Payer name Insurance type Covered green party ID Authoriza tion(s) No Information Social [...]
== END 2024-06-28 12:37 | disposition home or self-care (01) ==
LOC: ANHPFT 12:37
PROVIDERS: PCP Family Medicine; Visit Provider Internal Medicine Critical Care Medicine
DX: Z99.81 Dependence on supplemental oxygen (principal)
CPT/HCPCS: 94618

== ENCOUNTER 2024-07-18 16:27 | Outpatient (CLI) | payer MEDICARE, MEDICAID, SELFPAY ==
--- NOTE | ~2024-07-18 | XR_ITS ---
HISTORY: M25.511 - Pain in right shoulder COMPARISON: None TECHNIQUE: 2 views of the right shoulder were performed FINDINGS: No acute fracture. The glenohumeral joint space is maintained. Well corticated ossific density within the acromioclavicular joint space. The visualized portion of the adjacent right lung is clear. The humeral head is well seated within the glenoid fossa. IMPRESSION: No acute fracture or anterior dislocation. Degenerative disease within the acromioclavicular joint, as detailed above. Reviewed, dictated and finalized at location A.
--- NOTE | ~2024-07-18 | XR_ITS ---
CHEST RADIOGRAPH, PA AND LATERAL CLINICAL HISTORY: R05.9 - Cough, unspecified . COMPARISON: 05/15/2024 TECHNIQUE: PA and lateral views of the chest. FINDINGS The cardiomediastinal silhouette is unremarkable. Redemonstration of panlobular emphysematous disease with interstitial thickening in the bilateral rufina g bases. Redemonstration of peribronchial thickening. The remainder of the lungs are clear. IMPRESSION: Severe panlobular emphysematous disease with peribronchial thickening. Reviewed, dictated and finalized at location A.
--- OUTSIDE RECORDS SUMMARY | 2024-07-18 17:07 | XMS_ITS | Clinical Summary ---
Author Organization [facility] Address [address] [place] [address] Care Team Providers Care Tea Bag Packer Name Role Phone Sonia Ugalde NP Primary Care Provider [phone] Allergies Active Allergy Reactions Criticality Noted Date [...] Nose Inflammation Active vitamin D2, ergocalciferol, (DRISDOL) 59124 UNITS capsuleIndications: supplement Take 50,000 Units by [...] on file Legal Sex Female 5:53 PM [employer] SALES REPRESENTATIVE Gender Identity Not on file Sexual Orientation Not on file Last Filed Vital Signs Vital Sign Reading Time Taken Comments Blood Pressure 128/62 06/19/2022 1:04 PM [employer] SALES REPRESENTATIVE Pulse 97 06/19/2022 1:04 PM [employer] SALES REPRESENTATIVE Temperature 36.9 C (98.4 F) 06/19/2022 1:04 PM [employer] SALES REPRESENTATIVE Respiratory Rate 18 06/19/2022 1:04 PM [employer] SALES REPRESENTATIVE Oxygen Saturation 98% 06/19/2022 1:04 PM [employer] SALES REPRESENTATIVE Inhaled Oxygen Concentration - - Weight 72.1 kg (158 lb 15.2 oz) 05/20/2022 3:35 AM [employer] SALES REPRESENTATIVE Height 152.4 cm (5') 05/12/2022 8:20 PM [employer] SALES REPRESENTATIVE Body Mass Index 31.04 05/12/2022 8:20 PM [employer] SALES REPRESENTATIVE Plan of Treatment Health Maintenance Due Date Last Done Comments Colorectal Cancer Screening Colonoscopy (10 Years) 1952 Hepatitis C 1970 Mammogram Screening 1992 Annual Medicare Wellness Visit 2017 Dexa Scan (General) 2017 Zoster Vaccines (3 of 3) 03/27/2018 018, 11/11/2017, 06/24/2013 COVID-19 Vaccine ( season) 2023 02/05/2022, 05/09/2021, 11/28/2020, Additional history exists RSV Immunization or 60+ [...] 12:18 PM 05/20/2022 12:53 PM Care Teams Tea Bag Packer Relationship Specialty Start Date End Date Sonia Ugalde NP [address] [place] [address] PCP - General FAMILY MEDICINE SPORTS MEDICINE 05/12/22
--- OUTSIDE RECORDS SUMMARY | 2024-07-18 17:07 | XMS_ITS | Continuity of Care Document ---
Author Organization [facility] Address [address] [place] [address] Phone Care Team Providers Care Assorter Laundry Name Role Phone Radha Thomason MD Unavailable Unavailabl e Advance Directives Directive Yes / No Effective Date File Name No Information Encounters Encounter Description Practice Location Reason(s) For Visit Diagnoses Date Provider Providers Copied on Encounter [facility], [address], [place], [place], [id number], [place] tel:[phone] [place] No Information Paddy Garcia. [address] [place], [place], [id number]. tel:[phone] Family History Family Member Type Diagnosis Age At Onset No Information Payers Payer name Insurance type Covered republican ID Authoriza tion(s) No Information Social History [...]
--- OUTSIDE RECORDS SUMMARY | 2024-07-18 17:08 | XMS_ITS | CONTINUITY OF CARE DOCUMENT ---
Author Name trice carnes Address Unknown Organization [facility] Address [address] [address] [place] [address] Phone [phone] Care Team Providers Care Line Construction Supervisor Name Role Phone Adithya Ramsay MD Unavailable SOILA TRAN MD Unavailable [phone] JOSE J BOSWELL DO Unavailable [phone] INSURANCE PROVIDERS Payer name Policy type / Coverage type [place] red republican ID HEALTHCARE AND FAMILY SERVICES Medicaid 1 [id number] [place] Medicare [id number]
--- OUTSIDE RECORDS SUMMARY | 2024-07-18 17:08 | XMS_ITS ---
Author Organization Unknown Allergies, Adverse Reactions, Alerts Substance Reaction Status Not applicable - Active Medications Medication Instructions Effective Dates (start - sto p) Status cetirizine 10 mg tablet QD 2024-07-10 - Acti ve levalbuterol 1.25 mg/3 mL solution for nebulization daily 2024-07-10 - Active tiotropium bromide 18 mcg ca psule with inhalation device QD 2024-07-10 - Active lisinopril 10 mg tablet QD 2024-07-10 - Acti ve diltiazem ER 120 mg capsule, 24 hr,extended release QD 2024-07-10 - Active Prolia 60 mg/mL subcutaneous syringe every 6 months 2024-07-10 - Active atorvastatin 40 mg tablet QD 2024-07-10 - Ac tive Gamunex-C 10 gram/100 mL (10 %) injection solution every 7 days 2024-07-10 - Active other Active ropinirole 1 mg tablet QD 2024-07-10 - Activ e roflumilast 500 mcg tablet QD 2024-07-10 - A ctive Ubrelvy 100 mg tablet PRN 2024-07-10 - Active buspirone 15 mg tablet BID 2024-07-10 - Activ e albuterol sulfate HFA 90 mcg /actuation aerosol inhaler PRN 2024-07-10 - Active ferrous sulfate 325 mg (65 mg iron) tablet QD 2024-07-10 - Active potassium chloride ER 20 mEq tablet,extended release QD 2024-07-10 - Active ergocalciferol (vitamin D2) 1,250 mcg (50,000 unit) capsule every 2 weeks 2024-07-10 - Active montelukast 10 mg tablet QD 2024-07-10 - Act diaz ondansetron 4 mg disintegrating tablet PRN 20 04-07-30 - Active topiramate 25 mg tablet BID 2024-07-10 - Acti ve levothyroxine 88 mcg tablet 2024-07-10 - Active omeprazole 40 mg capsule,delayed release QD 2024-07-10 - Active venlafaxine ER 150 mg capsul e,extended release 24 hr QD 2024-07-10 - Active Problems Problem Status Start date Recorded date Problem Active 2024-07-08 2024-07-08 Plan of Treatment Encounters Encounter Type Performer Location Encounter Date Encoun ter Notes - - [id number]:00:00+00:00 no notes - - [id number]:00:00+00:00 no notes Patient Care team information Name Category Status Period Participants - - Proposed period not known - Notes Author - Date Note - [id number]:15:24+00:00 No Health Concern Data Available Melanie Glynn June 16, 2024, 3:42 p.m. - [id number]:15:24+00:00no Monique Glynn - [id number]:15:24+00:00 * Summary Written by: Date Melanie Glynn June 16, 2024, 3:42 p.m. Gary MENON, MPH, CEP June, 1:15 a.m.
--- OUTSIDE RECORDS SUMMARY | 2024-07-18 17:08 | XMS_ITS | Clinical Summary ---
Author Organization [facility] Address [address] [place] [address] Phone Care Team Providers Care Endocrinology Specialist Name Role Phone Sonia Ugalde APRN Primary Care Provider [phone] Allergies Active Allergy Reactions Criticality Noted Date [...] by mouth daily. Active ergocalciferol (VITAMIN D) 94166 UNIT Capsule Vitamin D2 1,250 mcg (50,000 [...] MEDICAID [place] HUMANA Care Teams Endocrinology Specialist Relationship Specialty Start Date End Date Sonia Ugalde APRN [address] [place] [address] PCP - General Family Medicine 11/11/23
--- OUTSIDE RECORDS SUMMARY | 2024-07-18 17:08 | XMS_ITS | Clinical Summary ---
Author Organization [facility] Address [address] [place] [address] Care Team Providers Care Patient Liaison Name Role Phone Chris Ugaldebecky Judge APRN-WOOL BRUSHER Primary Care Provider + Source Comments [facility],non-owned Affiliates and Associated Physician Practices is amultiple site organization consisting of ambulatory clinics and hospital sitesin [place], [place], [place] and [place]. This disclosure is being madepursuant to the Care Everywhere program and may not contain all information available regarding this patient. Last updated 17.[facility] Allergies Active Allergy Reactions Criticality Noted Date [...] Pressure Disorder Active ergocalciferol (Drisdol) 1.25 MG (17744 UT) capsuleIndications: Vitamin D Deficiency Vitamin D2 [...] Major Depressive Disorder Active OxygenIndications:c opd/ sob [place] 2 L/min into the nose continuous Reasons: [...] Telephone [facility] [address] [place] [address] Jaylin Rosa RN Referral 04/24/2024 [...] Recorded Patient Health Questionnaire-2 Score 3 02/28/2024 [facility] - Occupational Stress Questionnaire Answer Date [...] place to sleep or slept in a fpc (including now)? No 04/25/2022 Sex and Gender [...] Oxygen Concentration 32% 05/08/2022 9 :49 AM VICTIMS ADVOCATE CLERK/SPECIALIST Weight 69.9 kg (154 lb) 11/02/2022 5:50 AM CDT Height 152.4 cm (5') 11/02/2022 5:50 AM CDT Body Mass Index 30.08 11/02/2022 5:50 AM CDT Plan of Treatment Upcoming Encounters Date Type Department Care Team (Late st Contact Info) Description 08/09/2024 2:00 PM CDT Office Visit [facility] - Orthopedic Surgery [address] [place] [id number] Bhaskar Mack MD [address] [address] Health Maintenance Due Date Last Done Comments [...] 2023 02/05/2022, 05/09/2021, 11/28/2020, Additional history exists DEPRESSION SCREENING 04/12/2024 MEDICARE AWV CALENDAR YEAR 2024 INFLUENZA VACCINE (Season Ended) 2024 02/23/2022, 04/04/2021, 01/04/2017, Additional history exists Respiratory Syncytial Virus (RSV) Vaccine Pt: or [...] this topic Medical Devices Implanted Type Area Physiologist Device Identifier Shelf Expiration Date Model / Serial / Lot Screw 6.5mm 95mm Cassidy Lng Bone Sm Bone Implanted:Qty: 1 on 04/27/2022 by Luis Daniel Roca MD at [facility] [employer] [id number] / / Screw 6.5mm 110mm Cassidy Lng Bone Sm Bone Implanted:Qty: 1 on 04/27/2022 by Luis Daniel Roca MD at [facility] [employer] [id number] / / Screw Extfix 190[facility] Spd Pnt Implanted:Qty: 1 on 04/27/2022 by Luis Daniel Roca MD at [facility] [employer] [id number] / / Head Fem +4mm /14 Tpr 36mm Hip Oxnm Implanted:Qty: 1 on 11/02/2022 by Bhaskar Mack MD at [facility] Right: Hip [employer] 06/21/2032 [id number] / / [id number] Shell Actb 52mm Hip 3 Hl Poly R3 Std Implanted:Qty: 1 on 11/02/2022 by Bhaskar Mack MD at [facility] Right: Hip [employer] 07/07/2032 [id number] / / [id number] Screw 6.5mm 25mm Hip Actb Canc Sphrcl Implanted:Qty: 1 on 11/02/2022 by Bhaskar Mack MD at [facility] Right: Hip [employer] 04/15/2032 [id number] / / [id number] Liner Actb R3 20d 52mm 36mm Xlpe Poly Implanted:Qty: 1 on 11/02/2022 by Bhaskar Mack MD at [facility] Right: Hip [employer] 03/09/2031 [id number] / / [id number] Stem Fem 136mm Hip 135d 2 03/25 Std Ofst Implanted:Qty: 1 on 11/02/2022 by Bhaskar Mack MD at [facility] Right: Hip [employer] 02/12/2028 [id number] / / [id number] Explanted Type Area Physiologist Device Identifier Shelf Expiration Date Model / Serial / Lot Screw 6.5mm 85mm Cassidy Lng Bone Sm Bone Explanted:Qty: 1 on 04/27/2022 by Luis Daniel Roca MD at [facility] [employer] [id number] / / Gd Pin Orth 450mm 3.2mm Cocr Xtd Acc Explanted:Qty: 2 on 04/27/2022 at [facility] [employer] [facility] [id number] / / Advance Directives * Full Code [...] 5:05 AM 05/12/2022 7:18 PM Care Teams Patient Liaison Relationship Specialty Start Date End Date Sonia Ugalde, ROPEWALK ROPE MAKER-WOOL BRUSHER [address] [place] [address] PCP - General Nurse Practitioner Family 04/24/22
--- OUTSIDE RECORDS SUMMARY | 2024-07-18 17:08 | XMS_ITS | Encounter Summary ---
Author Organization [facility] Address [address] [place] [address] Care Team Providers Care Reconciliation Machine Operator Name Role Phone Sonia Ugalde NP Primary Care Provider [phone] Encounter Details Date Type Department Care Team (Late st Contact Info) Description 09/17/2018 Abstract [facility] CONVERSION [address] [place] [address] , Generic Conversion, Social History Tobacco Use Types Packs/Day Years Used Date Smoking Tobacco: Never Assessed Comments Unknown Sex and Gender Information Value Date Recorded Sex Assigned at Not on file Legal Sex Female 5:53 PM DISTRIBUTION ANALYST Gender Identity Not on file Sexual Orientation Not on file documented as of this encounter Plan of Treatment Not on file documented as of this encounter Visit Diagnoses Not on filedocumented in this encounter Care Teams Reconciliation Machine Operator Relationship Specialty Start Date End Date Sonia Ugalde NP [address] [place] [address] PCP - General FAMILY MEDICINE SPORTS MEDICINE 05/12/22 documented as of this encounter
== END 2024-07-18 16:28 | disposition home or self-care (01) ==
PROVIDERS: PCP Family Medicine; Visit Provider Nurse Practitioner
DX: J43.1 Panlobular emphysema (principal); M19.011 Primary osteoarthritis, right shoulder
CPT/HCPCS: 71046; 73030

== ENCOUNTER 2024-08-25 14:40 | Outpatient (CLI) | payer MEDICARE, MEDICAID, SELFPAY ==
--- NOTE | ~2024-08-25 | CT_ITS ---
CT Scan of the Chest without Contrast: Clinical Indication: Lymph node follow-up, shortness of breath Technique: Contiguous sections were acquired throughout the chest without intravenous contrast. Dose reduction technique was used on this scan by utilizing automated exposure control and iterative recon struction technique. The dose-length product (DLP) was 110.73 mGy-cm. COMPARISON: 08/02/2023 Findings: Stable minimally prominent left paratracheal lymph node. No other lymphadenopathy identified. Coronar y artery calcifications are present.. There is no evidence of pleural or pericardial effusion. Stable 4 mm nodule at the anteromedial left upper lobe (axial image 61). Moderate emphysema present. Images through the upper abdomen reveal no abnormalities. Impression: Stable minimally prominent left paratracheal lymph node. Stable 4 mm left upper lobe nodule. Moderate emphysema. Reviewed, dictated and finalized at [facility]. Impression: Stable minimally prominent left paratracheal lymph node. Stable 4 mm left upper lobe nodule. Moderate emphysema.
--- OUTSIDE RECORDS SUMMARY | 2024-08-25 15:03 | XMS_ITS | Continuity of Care Document ---
Author Organization [facility] Address [address] [place] [address] Phone Care Team Providers Care Liability Claims Adjuster Name Role Phone Radha Thomason MD Unavailable Unavailabl e Advance Directives Directive Yes / No Effective Date File Name No Information Encounters Encounter Description Practice Location Reason(s) For Visit Diagnoses Date Provider Providers Copied on Encounter [email or web address], [address], [place], [place], [id number], [place] tel:[phone] [place] No Information Paddy Garcia. [address] [place], [place], [id number]. tel:[phone] Family History Family Member Type Diagnosis Age At Onset No Information Payers Payer name Insurance type Covered democrat ID Authoriza tion(s) No Information Social History [...]
--- OUTSIDE RECORDS SUMMARY | 2024-08-25 15:03 | XMS_ITS | Clinical Summary ---
Author Organization [facility] Address [address] [place] [address] Phone Care Team Providers Care Critical Care Nurse Practitioner Name Role Phone Sonia Ugalde APRN Primary Care Provider [phone] Allergies Active Allergy Reactions Criticality Noted Date [...] by mouth daily. Active ergocalciferol (VITAMIN D) 02226 UNIT Capsule Vitamin D2 1,250 mcg (50,000 [...] MEDICAID [place] C HUMANA Care Teams Critical Care Nurse Practitioner Relationship Specialty Start Date End Date Sonia Ugalde APRN [address] [place] [address] PCP - General Family Medicine 11/11/23
--- OUTSIDE RECORDS SUMMARY | 2024-08-25 15:03 | XMS_ITS | CONTINUITY OF CARE DOCUMENT ---
Author Name trice carnes Address Unknown Organization [facility] Address [address] [place] [address] Phone [phone] Care Team Providers Care Product Technician Name Role Phone Adithya Ramsay MD Unavailable SOILA TRAN MD Unavailable [phone] JOSE J BOSWELL DO Unavailable INSURANCE PROVIDERS Payer name Policy type / Coverage type [place] red republican ID HEALTHCARE AND FAMILY SERVICES Medicaid 1 [id number] [place] Medicare [id number]
--- OUTSIDE RECORDS SUMMARY | 2024-08-25 15:03 | XMS_ITS | Clinical Summary ---
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 Gender Identity Not on file Sexual Orientation Not on file Last Filed Vital Signs Vital Sign Reading Time Taken Comments Blood Pressure 128/62 06/19/2022 1:04 PM INSTRUMENT MAN Pulse 97 06/19/2022 1:04 PM INSTRUMENT MAN Temperature 36.9 C (98.4 F) 06/19/2022 1:04 PM INSTRUMENT MAN Respiratory Rate 18 06/19/2022 1:04 PM INSTRUMENT MAN Oxygen Saturation 98% 06/19/2022 1:04 PM INSTRUMENT MAN Inhaled Oxygen Concentration - - Weight 72.1 kg (158 lb 15.2 oz) 05/20/2022 3:35 AM INSTRUMENT MAN Height 152.4 cm (5') 05/12/2022 8:20 PM INSTRUMENT MAN Body Mass Index 31.04 05/12/2022 8:20 PM INSTRUMENT MAN Plan of Treatment Health Maintenance Due Date [...] Td or Tdap) 03/03/2029 03/03/2019 Pneumococcal Vaccine: 50+ Years Completed 01/23/2019, 01/21/2018, 09/29/2015 Meningococcal B Vaccine Aged Out No l onger eligible based on patient's age to complete this topic Meningococcal Vaccine Aged Out No nancy carlei eligible based on patient's age to complete [...] 12:18 PM 05/20/2022 12:53 PM Care Teams Driller And Reamer Relationship Specialty Start Date End Date Sonia Ugalde NP [address] [place] [address] PCP - General FAMILY MEDICINE SPORTS MEDICINE 05/12/22
--- OUTSIDE RECORDS SUMMARY | 2024-08-25 15:03 | XMS_ITS | Encounter Summary ---
Author Organization [facility] Address [address] [place] [address] Care Team Providers Care Production Administrative Assistant Name Role Phone Sonia Ugalde NP Primary Care Provider [phone] Encounter Details Date Type Department Care Team (Late st Contact Info) Description 09/17/2018 Abstract [facility] CONVERSION [address] [place] [address] , Generic Conversion, Social History Tobacco Use Types Packs/Day Years Used Date Smoking Tobacco: Never Assessed Comments Unknown Sex and Gender Information Value Date Recorded Sex Assigned at Not on file 

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
== END 2024-08-25 14:41 | disposition home or self-care (01) ==
PROVIDERS: PCP Family Medicine; Visit Provider Internal Medicine Critical Care Medicine
DX: J96.11 Chronic respiratory failure with hypoxia (principal); J43.9 Emphysema, unspecified; R91.1 Solitary pulmonary nodule
CPT/HCPCS: 71250

== ENCOUNTER 2024-10-28 09:50 | Outpatient (CLI) | payer MEDICARE, MEDICAID, SELFPAY ==
--- OUTSIDE RECORDS SUMMARY | 2024-10-28 09:54 | XMS_ITS | Clinical Summary ---
Author Organization [facility] Address [address] [place] [address] Phone Care Team Providers Care Donation Specialist Name Role Phone Sonia Ugalde APRN Primary Care Provider Allergies Active Allergy Reactions Criticality Noted Date [...] by mouth daily. Active ergocalciferol (VITAMIN D) 75702 UNIT Capsule Vitamin D2 1,250 mcg (50,000 [...] C Virus (HCV) Screening 1950 Mammogram 1950 Cologuard 1997 Colonoscopy 1997 Colorectal Cancer Screening 1997 Immunochemical Fecal Occult Blood 1997 Zoster Immunization (2 of 2) 03/27/2018, 11/11/2017, 06/24/2013 SARS-COV-2 Immunization ( season) 2023 01/29/2023, 02/05/2022, 05/09/2021, Additional history exists Influenza Immunization (#1) 12/11/202401/11, 02/23/2022, 04/04/2021, Additional history exists Pneumococcal Immunization (50+ years) Completed 01/23/2019, 01/21/2018, 09/29/2015, Additional history exists TdaP Immunization Completed 03/03/2019 Respiratory Syncytial Virus (RSV) Immunization (Adult) Completed 01/29/2023 Hepatitis B Immunization Aged Out No longer eligible based on patient's age to complete this topic Human Papillomavirus (HPV) Immunization Aged Out No longer eligible based on patient's age to complete this topic Meningococcal Immunization (ACWY) Aged Out No longer eligible based on patient's age to complete this topic Rotavirus Immunization Aged Out No lo nger eligible based on patient's age to complete this topic Insurance MEDICAID [place] MEDICARE C HUMANA Care Teams Donation Specialist Relationship Specialty Start Date End Date Sonia Ugalde APRN [address] [place] [address] PCP - General Family Medicine 11/11/23
--- OUTSIDE RECORDS SUMMARY | 2024-10-28 09:54 | XMS_ITS | Patient Health Record ---
Author Organization [facility] Address [address] [place] [address] Care Team Providers Care Income Tax Advisor Name Role Phone Sonia Miller Primary Care Provider Nathalia Sofia Unavailable [phone] Allergies Allergen (clinical drug ingredient) Drug/Non Drug Allergy documented on EMR Reaction Allergy Type Onset Date Status Substance with sulfonamide structure and antibacterial mechanism of action (substance) SULFA (SULFONAMIDE ANTIBIOTICS) (uncoded) Unknown Allergy Active Substance with penicillin structure and antibacterial mechanism of action (substance) Penicillins Unknown Drug Allergy Active Reason For Referral No Information Medications Medication SIG (Take, Route, Frequency, Duration) Notes Start Date End Date Status Azithromycin 250 MG Oral Active Lisinopril 10 MG Oral Act diaz Aspirin 81 MG Oral Active Gamunex-C 10 gram/100 mL (10 %) Injection *Pick strength-form from [facility] for eRX* Active predniSONE 50 MG Oral Act diaz Pregabalin 50 MG Oral Act diaz Venlafaxine HCl ER 150 MG Oral Active Omeprazole 40 MG Oral Act diaz ID Now COVID-19 In Vitro *Reorder from [facility] for eRx and Interaction Alerts* Active HYDROcodone-Acetaminop hen 5-325 MG Oral Active Potassium Chloride ER 10 MEQ Oral Active Cetirizine HCl 10 MG Oral Active rOPINIRole HCl 1 MG Oral Active Ergocalciferol 1.25 MG (44844 UT) Oral Active Alendronate Sodium 70 MG Oral Active SUMAtriptan Succinate 50 MG Oral Active ProAir HFA 108 (90 Base) MCG/ACT Inhalation Active Topiramate 25 MG Oral Act diaz Magnesium Oxide (Elemental) 400 MG Oral *Reorder from [facility] for eRx and Interaction Alerts* Active Docusate Sodium 100 MG Oral Active Gabapentin 300 MG Oral Ac tive Eliquis 2.5 MG Oral Activ e predniSONE 20 MG Oral Act diaz Levalbuterol HCl 1.25 MG/3ML Inhalation Active Meloxicam 7.5 MG Oral Act diaz busPIRone HCl 15 MG Oral Active Montelukast Sodium 10 MG Oral Active Cefpodoxime Proxetil 200 MG Oral Active WIXELA INHUB 250 MCG-50 MCG/DOSE POWDER FOR INHALATION *Reorder from [facility] for eRx and Interaction Alerts* Active EPINEPHrine 0.3 MG/0.3ML Injection Active predniSONE 10 MG Oral Act diaz Levothyroxine Sodium 88 MCG Oral Active Ferrous Sulfate 325 (65 Fe) MG Oral Active dilTIAZem HCl ER Beads 120 MG Oral Active Ciprofloxacin HCl 250 MG Oral Active Daliresp 500 MCG Oral Act diaz Spiriva HandiHaler 18 MCG Inhalation Active levoFLOXacin 750 MG Oral Active Atorvastatin Calcium 40 MG Oral Active Ipratropium-Albuterol 0.5-2.5 (3) MG/3ML Inhalation Active Social History Sex Assigned At : Social History Observation Description Sex Assigned At Female Encounters Encounter Location Date Provider Diagnosis [facility] [employer] [address] [address] 05/22/2024 Nathalia Trejo Plan Of Treatment No Information Insurance Providers Payer Name Payer Address Payer Phone Subscriber Number Group Number Insured Name Patient Relationship to Insured Coverage Start Date Coverage End Date [employer] Medicare Replacemen t/Advantag e - Ppo [address] [address] [place] [address] [id number] REBECA AYDIN Self - patient is the insured Medicaid-[place] l Medicaid [address] [address] [place] [address] [id number] AYDIN JOSE Self - patient is the insured Medical (General) History Medical History History ICD Code Anxiety Arthritis COPD Depression Chronic respiratory failure Essential HTN GERD Mixed HLD HYpothyroidism KAREN Pneumonia Pre diabetes Tachycardia Ulcer Uterine cancer Vit D deficiency
--- OUTSIDE RECORDS SUMMARY | 2024-10-28 09:54 | XMS_ITS | Clinical Summary ---
Author Organization [facility] Address [address] [place] [address] Care Team Providers Care Optical Assistant Name Role Phone Sonia Ugalde NP Primary Care Provider [phone] Allergies Active Allergy Reactions Criticality Noted Date [...] Nose Inflammation Active vitamin D2, ergocalciferol, (DRISDOL) 29314 UNITS capsuleIndications: supplement Take 50,000 Units by [...] on file Legal Sex Female 5:53 PM [employer] Gender Identity Not on file Sexual Orientation Not on file Last Filed Vital Signs Vital Sign Reading Time Taken Comments Blood Pressure 128/62 06/19/2022 1:04 PM [employer] Pulse 97 06/19/2022 1:04 PM [employer] Temperature 36.9 C (98.4 F) 06/19/2022 1:04 PM [employer] Respiratory Rate 18 06/19/2022 1:04 PM [employer] Oxygen Saturation 98% 06/19/2022 1:04 PM [employer] Inhaled Oxygen Concentration - - Weight 72.1 kg (158 lb 15.2 oz) 05/20/2022 3:35 AM [employer] Height 152.4 cm (5') 05/12/2022 8:20 PM [employer] Body Mass Index 31.04 05/12/2022 8:20 PM [employer] Plan of Treatment Health Maintenance Due Date [...] age to complete this topic Insurance [place] [address] HUMAN Advance Directives * Full Code (Latest Code Status on File) Date Activated Date Inactivated Comments 05/21/2022 10:44 AM * Full Code Date Activated Date Inactivated Comments 05/19/2022 12:18 PM 05/20/2022 12:53 PM Care Teams Optical Assistant Relationship Specialty Start Date End Date Sonia Ugalde NP [address] [place] [address] PCP - General FAMILY MEDICINE SPORTS MEDICINE 05/12/22
--- OUTSIDE RECORDS SUMMARY | 2024-10-28 09:54 | XMS_ITS ---
Author Organization Unknown Allergies, Adverse Reactions, Alerts Substance Reaction Status Not applicable - Active Medications Medication Instructions Effective Dates (start - stop) Status topiramate 25 mg tablet BID 2024-07-10 - Acti ve venlafaxine ER 150 mg capsule,extended release 24 hr QD 2024-07-10 - Active Ubrelvy 100 mg tablet PRN 2024-07-10 - Active tiotropium bromide 18 mcg ca psule with inhalation device QD 2024-07-10 - Active potassium chloride ER 20 mEq tablet,extended release QD 2024-07-10 - Active ropinirole 1 mg tablet QD 2024-07-10 - Activ e roflumilast 500 mcg tablet QD 2024-07-10 - A ctive ondansetron 4 mg disintegrat ing tablet PRN 2024-07-10 - Active omeprazole 40 mg capsule,del ayed release QD 2024-07-10 - Active montelukast 10 mg tablet QD 2024-07-10 - Act diaz lisinopril 10 mg tablet QD 2024-07-10 - Acti ve levothyroxine 88 mcg tablet 2024-07-10 - Active levalbuterol 1.25 mg/3 mL so lution for nebulization daily 2024-07-10 - Active Gamunex-C 10 gram/100 mL (10 %) injection solution every 7 days 2024-07-10 - Active ferrous sulfate 325 mg (65 m g iron) tablet QD 2024-07-10 - Active ergocalciferol (vitamin D2) 1,250 mcg (50,000 unit) capsule every 2 weeks 2024-07-10 - Active diltiazem ER 120 mg capsule, 24 hr,extended release QD 2024-07-10 - Active Prolia 60 mg/mL subcutaneous syringe every 6 months 2024-07-10 - Active cetirizine 10 mg tablet QD 2024-07-10 - Acti ve buspirone 15 mg tablet BID 2024-07-10 - Activ e atorvastatin 40 mg tablet QD 2024-07-10 - Ac tive albuterol sulfate HFA 90 mcg/actuation aerosol inhaler PRN 2024-07-10 - Active other Active Problems Problem Status Start date Recorded date Problem Active 2024-07-08 2024-07-08 Plan of Treatment Encounters Encounter Type Performer Location Encounter Date Encoun ter Notes - - [id number]:00:00+00:00 no notes - - [id number]:00:00+00:00 no notes Patient Care team information Name Category Status Period Participants - - Proposed period not known - Notes Author - Date Note Melanie Glynn - T01:15:24+00:00 Summary Melanie Glynn June 16, 2024, 3:42 p.m. Gary MENON, MPH, CEP June, 1:15 a.m. - [id number]:15:24+00:00no notes- [id number]:15:24+00:00* No Health Concern Data Available Melanie Glynn - [id number]:15:24+00:00* Summary Written by: Marla Glynn June 16, 2024, 3:42 p.m.
--- OUTSIDE RECORDS SUMMARY | 2024-10-28 09:54 | XMS_ITS | Encounter Summary ---
Author Organization [facility] Address [address] [place] [address] Care Team Providers Care Corporate Quality Engineer Name Role Phone Sonia Ugalde NP Primary Care Provider [phone] Encounter Details Date Type Department Care Team (Late st Contact Info) Description 09/17/2018 Abstract SFL CONVERSION [address] [place] [address] , Generic Conversion, Social History Tobacco Use Types Packs/Day Years Used Date Smoking Tobacco: Never Assessed Comments Unknown Sex and Gender Information Value Date Recorded Sex Assigned at Not on file Legal Sex Female 5:53 PM APRON CLEANER Gender Identity Not on file Sexual Orientation Not on file documented as of this encounter Plan of Treatment Not on file documented as of this encounter Visit Diagnoses Not on filedocumented in this encounter Care Teams Corporate Quality Engineer Relationship Specialty Start Date End Date Sonia Ugalde NP [address] [place] [address] PCP - General FAMILY MEDICINE SPORTS MEDICINE 05/12/22 documented as of this encounter
[2024-10-28 11:07] LABS: Iron 92 ug/dL (37-170)
[2024-10-28 11:14] LABS: Add Urine Microscopic? YES; Appearance Urine Turbid (Clear); Glucose Urine UA Negative (Negative); Leukocyte Esterase Ur 3+ LEU/UL (Negative); Need Manual Microscopic Reviewed; Nitrate Urine Positive (Negative); Specific Grav Ur 1.018 (1.001-1.035)
[2024-10-28 11:16] LABS: Percent Iron Saturation 28 % (20-50)
[2024-10-28 11:19] LABS: Alanine Aminotransferase 17 U/L (6-35); Albumin Level 3.8 g/dL (3.5-5.1); Alkaline Phosphatase 112 U/L (38-126); Anion Gap 6 mmol/L (4-12); Aspartate Amino Transferase 27 U/L (14-36); Bilirubin,Total 0.6 mg/dL (0.2-1.3); Blood Urea Nitrogen 9 mg/dL (7-17); Calcium 8.8 mg/dL (8.4-10.2); Carbon Dioxide 25 mmol/L (22-30); Chloride 110 mmol/L (98-107); Cholesterol 121 mg/dL (0-200); Estimated Glomerular Filt Rate > 60; Glucose 88 mg/dL (65-110); HDL Direct 34 mg/dL; Potassium 4.0 mmol/L (3.4-5.0); Sodium 141 mmol/L (137-145); Total Protein 6.7 g/dL (6.3-8.2); Triglycerides 89 mg/dL (<150)
[2024-10-28 11:22] LABS: Hemoglobin A1C 5.4 % (<5.7)
[2024-10-28 11:25] LABS: Free T4 Free Thyroxine 1.47 ng/dL (0.78-2.19)
[2024-10-28 11:55] LABS: Thyroid Stimulating Hormone 3.420 uIU/mL (0.465-4.680)
== END 2024-10-28 09:51 | disposition home or self-care (01) ==
PROVIDERS: Nurse Practitioner; PCP Internal Medicine; Visit Provider Nurse Practitioner
DX: E61.1 Iron deficiency (principal); E78.5 Hyperlipidemia, unspecified; E03.9 Hypothyroidism, unspecified; E55.9 Vitamin D deficiency, unspecified; R73.03 Prediabetes; R39.9 Unspecified symptoms and signs involving the genitourinary system
CPT/HCPCS: 36415; 80053; 80061; 81001; 82306; 83036; 83540; 83550; 84439; 84443; 87086

== ENCOUNTER 2024-11-03 07:50 | Outpatient (CLI) | payer MEDICARE, MEDICAID, SELFPAY ==
--- NOTE | ~2024-11-03 | CT_ITS ---
EXAMINATION: CTA BRAIN/CAROTID DATE: 11/03/2024 08:30 INDICATION: Headache with orthostatic component. TECHNIQUE: Computed tomographic angiography (CTA) of the head and neck was performed with 100 mL Omni paque-350 intravenous contrast. Multiplanar reconstructions and maximum intensity projection 3D-recon structions of the carotid arteries and of the intracranial arteries were created by the technologist on a separate workstation. Precontrast CT of the head was also obtained. Automated exposure control and iterative reconstruction technique were employed.The dose-length product was 1448.53 mGy-cm. COMPARISON: None. FINDINGS: Carotid arteries: Visualized aortic arch is normal caliber small amount of nonhemodynamically significant atherosclerot ic plaque and no dissection. Additional small amount of nonhemodynamically of atherosclerotic plaque at the origins of the great vessels arising from the arch. There is 0% stenosis of the right carotid bulb relative to normal distal artery lumen diameter (NASCET criteria). The more distal intracranial right internal carotid artery is tortuous. There is small amount of atherosclerotic plaque with 0% st enosis of the left carotid bulb relative to normal distal artery lumen diameter. Reversal of the norm al cervical lordosis with severe mid to lower cervical spondylosis. Moderate emphysema the visualized upper lungs. Head: No acute intracranial hemorrhage, acute infarction or abnormal extra axial fluid collection. Ventricl es are normal and symmetric. No mass/mass effect. No abnormally enhancing brain lesions on the post c ontrast imaging. The orbits and mastoid air cells are normal. Mild mucosal thickening in the bilatera l ethmoid and right maxillary sinuses. There is additional moderate sized mucous retention cyst in th e right maxillary sinus which demonstrates thickened cirrhotic terry consistent with chronic sinusiti s. Intracranial arteries The left vertebral artery is dominant particularly distal to the right posterior inferior cerebellar artery where the distal right vertebral artery is diminutive, nearly indiscernible. Minimal nonhemody namically significant atherosclerotic plaque at the left carotid siphon.. There is no hemodynamically significant stenosis in the vertebral, basilar and internal carotid arteries. Both A1 and P1 segment s are patent. The right P1 segment is diminutive with majority of flow to the right posterior cerebra l artery supplied from the right internal carotid artery and a larger caliber right posterior communi cating artery. There are no aneurysms identified. Cerebral arterial arborization appears symmetric. IMPRESSION: 1. No evident atherosclerotic plaque with 0% stenosis of the right carotid bulb relative to normal di harpreet artery lumen diameter (NASCET criteria). 2. Small amount of atherosclerotic plaque with 0% stenosis of the left carotid bulb relative to silva l distal artery lumen diameter. 3. Normal brain with no acute intracranial process or abnormally enhancing brain lesions. 4. Normal anatomic variation of the central intracranial arteries. No hemodynamic significant stenosi s, thrombosis or aneurysm. Reviewed, dictated and finalized at location A. IMPRESSION: 1. No evident atherosclerotic plaque with 0% stenosis of the right carotid bulb relative to normal distal artery lumen diameter (NASCET criteria). 2. Small amount of atherosclerotic plaque with 0% stenosis of the left carotid bulb relative to normal distal artery lumen diameter. 3. Normal brain with no acute intracranial process or abnormally enhancing brai n lesions. 4. Normal anatomic variation of the central intracranial arteries. No hemodynam ic significant stenosis, thrombosis or aneurysm.
--- OUTSIDE RECORDS SUMMARY | 2024-11-03 07:56 | XMS_ITS | Clinical Summary ---
Author Organization [facility] Address [address] [place] [address] Phone Care Team Providers Care Senior Air Director Name Role Phone Sonia Ugalde APRN Primary Care Provider [phone] Allergies Active Allergy Reactions Criticality Noted Date [...] by mouth daily. Active ergocalciferol (VITAMIN D) 19413 UNIT Capsule Vitamin D2 1,250 mcg (50,000 [...] MED[place]ID [place] C HUMANA Care Teams Senior Air Director Relationship Specialty Start Date End Date Sonia Ugalde APRN [address] [place] [address] PCP - General Family Medicine 11/11/23
--- OUTSIDE RECORDS SUMMARY | 2024-11-03 07:56 | XMS_ITS | Encounter Summary ---
Author Organization [facility] Address [address] [place] [address] Care Team Providers Care Pipe Setter Name Role Phone Sonia Ugalde NP Primary Care Provider [phone] Encounter Details Date Type Department Care Team (Late st Contact Info) Description 09/17/2018 Abstract SFL CONVERSION [address] [place] [address] , Generic Conversion, Social History Tobacco Use Types Packs/Day Years Used Date Smoking Tobacco: Never Assessed Comments Unknown Sex and Gender Information Value Date Recorded Sex Assigned at Not on file Legal Sex Female 5:53 PM FURNACE FILLER Gender Identity Not on file Sexual Orientation Not on file documented as of this encounter Plan of Treatment Not on file documented as of this encounter Visit Diagnoses Not on filedocumented in this encounter Care Teams Pipe Setter Relationship Specialty Start Date End Date Sonia Ugalde NP [address] [place] [address] PCP - General FAMILY MEDICINE SPORTS MEDICINE 05/12/22 documented as of this encounter
--- OUTSIDE RECORDS SUMMARY | 2024-11-03 07:56 | XMS_ITS | Clinical Summary ---
Author Organization [facility] Address [address] [place] [address] Care Team Providers Care Booking Prizer Name Role Phone Sonia Ugalde NP Primary Care Provider [phone] Allergies Active Allergy Reactions Criticality Noted Date [...] Nose Inflammation Active vitamin D2, ergocalciferol, (DRISDOL) 65568 UNITS capsuleIndications: supplement Take 50,000 Units by [...] on file Legal Sex Female 5:53 PM TRANSPLANT IMMUNOLOGIST Gender Identity Not on file Sexual Orientation Not on file Last Filed Vital Signs Vital Sign Reading Time Taken Comments Blood Pressure 128/62 06/19/2022 1:04 PM TRANSPLANT IMMUNOLOGIST Pulse 97 06/19/2022 1:04 PM TRANSPLANT IMMUNOLOGIST Temperature 36.9 C (98.4 F) 06/19/2022 1:04 PM TRANSPLANT IMMUNOLOGIST Respiratory Rate 18 06/19/2022 1:04 PM TRANSPLANT IMMUNOLOGIST Oxygen Saturation 98% 06/19/2022 1:04 PM TRANSPLANT IMMUNOLOGIST Inhaled Oxygen Concentration - - Weight 72.1 kg (158 lb 15.2 oz) 05/20/2022 3:35 AM TRANSPLANT IMMUNOLOGIST Height 152.4 cm (5') 05/12/2022 8:20 PM TRANSPLANT IMMUNOLOGIST Body Mass Index 31.04 05/12/2022 8:20 PM TRANSPLANT IMMUNOLOGIST Plan of Treatment Health Maintenance Due Date [...] 12:18 PM 05/20/2022 12:53 PM Care Teams Booking Prizer Relationship Specialty Start Date End Date Sonia Ugalde NP [address] [place] [address] PCP - General FAMILY MEDICINE SPORTS MEDICINE 05/12/22
--- OUTSIDE RECORDS SUMMARY | 2024-11-03 07:56 | XMS_ITS | Patient Health Record ---
Author Organization [facility] Address [address] [place] [address] Care Team Providers Care Oil And Gas Recruiter Name Role Phone Sonia Miller Primary Care Provider Nathalia Sofia Unavailable [phone] Allergies Allergen (clinical drug ingredient) Drug/Non Drug [...] mL (10 %) Injection *Pick strength-form from [facility] for eRX* Active predniSONE 50 MG Oral Act diaz Pregabalin 50 MG Oral Act diaz Venlafaxine HCl ER 150 MG Oral Active Omeprazole 40 MG Oral Act diaz ID Now COVID-19 In Vitro *Reorder from [facility] for eRx and Interaction Alerts* Active HYDROcodone-Acetaminop hen 5-325 MG Oral Active Potassium Chloride ER 10 MEQ Oral Active Cetirizine HCl 10 MG Oral Active rOPINIRole HCl 1 MG Oral Active Ergocalciferol 1.25 MG (25122 UT) Oral Active Alendronate Sodium 70 MG Oral Active SUMAtriptan Succinate 50 MG Oral Active ProAir HFA 108 (90 Base) MCG/ACT Inhalation Active Topiramate 25 MG Oral Act diaz Magnesium Oxide (Elemental) 400 MG Oral *Reorder from [facility] for eRx and Interaction Alerts* Active Docusate [...] MCG-50 MCG/DOSE POWDER FOR INHALATION *Reorder from [facility] for eRx and Interaction Alerts* Active EPINEPHrine [...] Female Encounters Encounter Location Date Provider Diagnosis [facility] [place] [address] [address] 05/22/2024 Nathalia Trejo Plan Of Treatment No Information Insurance Providers Payer Name Payer Address Payer Phone Subscriber Number Group Number Insured Name Patient Relationship to Insured Coverage Start Date Coverage End Date [employer] Medicare Replacemen t/Advantag e - Ppo [address] [address] [place] [address] [id number] REBECA AYDIN Self - patient is the insured Medicaid-[place] Medicaid [address] [address] [place] [address] [id number] AYDIN JOSE Self - patient is the insured Medical (General) History Medical History History ICD Code Anxiety Arthritis COPD Depression Chronic respiratory failure Essential HTN GERD Mixed HLD HYpothyroidism KAREN Pneumonia Pre diabetes Tachycardia Ulcer Uterine cancer Vit D deficiency
== END 2024-11-03 07:51 | disposition home or self-care (01) ==
PROVIDERS: PCP Internal Medicine; Visit Provider Psychiatry & Neurology Neurology
DX: R51.9 Headache, unspecified (principal); Z82.49 Family history of ischemic heart disease and other diseases of the circulatory system
CPT/HCPCS: 70496; 70498; Q9967

== ENCOUNTER 2024-12-12 09:21 | Outpatient (CLI) | payer MEDICARE, MEDICAID, SELFPAY ==
--- NOTE | ~2024-12-12 | US_ITS ---
US abdomen limited INDICATION: PROCEDURE: Realtime right upper abdominal ultrasound. COMPARISON: No prior studies for comparison. FINDINGS: The pancreas is normal without focal mass or pancreatic ductal dilation. Liver surface appears nodular, compatible with cirrhosis. No focal hepatic masses are identified. There is normal directional flow in the portal vein. The gallbladder is normal without stones, gallbladder wall thickening or pericholecystic fluid. Common bile duct measures 6 mm. No sonographic Finch's sign. IMPRESSION: 1: Nodular liver surface, compatible with cirrhosis. Reviewed, dictated and finalized at location O.
== END 2024-12-12 09:22 | disposition home or self-care (01) ==
PROVIDERS: PCP Internal Medicine; Visit Provider Nurse Practitioner
DX: K76.89 Other specified diseases of liver (principal); R10.13 Epigastric pain
CPT/HCPCS: 76705

== ENCOUNTER 2024-12-26 15:58 | Outpatient (CLI) | payer MEDICARE, MEDICAID, SELFPAY ==
--- OUTSIDE RECORDS SUMMARY | 2008-04-08 19:00 | XMS_ITS | Continuity of Care Document ---
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 [address], [place], [id number]. tel:[phone] Family History Family Member Type Diagnosis Age At Onset No Information Payers Payer name Insurance type Covered alliance party ID Authoriza tion(s) No Information Social History Type Description Quantity Date Captured Comments Sex Female Smoking Status No Information Chief Complaint And Reason For Visit No Information Reason For Referral Reason For Referral No Information History Of Present Illness Encounter Date Complaint History Of Prese nt Illness No Information Functional Status Date Functional Assessmen t No Information Instructions Date Instruction Additional Infor mation No Information Assessments Type Assessment Date No Information Patient Care Teams Name Effective Dates (start - stop) Status Members No Information
--- OUTSIDE RECORDS SUMMARY | 2024-12-26 16:52 | XMS_ITS | Clinical Summary ---
Author Organization [facility] Address [address] [place] [address] Care Team Providers Care Boat Laborer Name Role Phone Sonia Ugalde NP Primary Care Provider [phone] Allergies Active Allergy Reactions Criticality Noted Date [...] Nose Inflammation Active vitamin D2, ergocalciferol, (DRISDOL) 99790 UNITS capsuleIndications: supplement Take 50,000 Units by [...] on file Legal Sex Female 5:53 PM HAULAGE BOSS Gender Identity Not on file Sexual Orientation Not on file Last Filed Vital Signs Vital Sign Reading Time Taken Comments Blood Pressure 128/62 06/19/2022 1:04 PM HAULAGE BOSS Pulse 97 06/19/2022 1:04 PM HAULAGE BOSS Temperature 36.9 C (98.4 F) 06/19/2022 1:04 PM HAULAGE BOSS Respiratory Rate 18 06/19/2022 1:04 PM HAULAGE BOSS Oxygen Saturation 98% 06/19/2022 1:04 PM HAULAGE BOSS Inhaled Oxygen Concentration - - Weight 72.1 kg (158 lb 15.2 oz) 05/20/2022 3:35 AM HAULAGE BOSS Height 152.4 cm (5') 05/12/2022 8:20 PM HAULAGE BOSS Body Mass Index 31.04 05/12/2022 8:20 PM HAULAGE BOSS Plan of Treatment Health Maintenance Due Date Last Done Comments Colorectal Cancer Screening Colonoscopy (10 Years) 1952 Hepatitis C 1970 Mammogram Screening 1992 Annual Medicare Wellness Visit 2017 Dexa Scan (General) 2017 Zoster Vaccines (3 of 3) 03/27/2018 018, 11/11/2017, 06/24/2013 COVID-19 Vaccine ( season) 2024 02/05/2022, 05/09/2021, 11/28/2020, Additional history exists RSV [...] 12:18 PM 05/20/2022 12:53 PM Care Teams Boat Laborer Relationship Specialty Start Date End Date Sonia Ugalde NP [address] [place] [address] PCP - General FAMILY MEDICINE SPORTS MEDICINE 05/12/22
--- OUTSIDE RECORDS SUMMARY | 2024-12-26 16:52 | XMS_ITS | Clinical Summary ---
Author Organization [facility] Address [address] [place] [address] Care Team Providers Care Cooker Operator Name Role Phone Chris Ugaldebecky Judge APRN-SHOW HOST/HOSTESS Primary Care Provider + Source Comments [facility],non-owned Affiliates and Associated Physician Practices is amultiple site organization consisting of ambulatory clinics and hospital sitesin [place], [place], [place] and [place]. This disclosure is being madepursuant to the Care Everywhere program and may not contain all information available regarding this patient. Last updated 17.[facility] Allergies Active Allergy Reactions Criticality Noted Date [...] Pressure Disorder Active ergocalciferol (Drisdol) 1.25 MG (65166 UT) capsuleIndicatio ns:Vitamin D Deficiency Vitamin D2 [...] Major Depressive Disorder Active OxygenIndication s:copd/ sob [place] 2 L/min into the nose continuous [...] unspecified portion of acetabulum, initial encounter 04/25/2022 Family History Medical History Relation Name Comments [...] Recorded Patient Health Questionnaire-2 Score 0 08/07/2024 [facility] - Occupational [...] place to sleep or slept in a usp (including now)? No 04/25/2022 Comments Unknown Sex and Gender Information Value Date Recorded Sex Assigned at Not on file Legal Sex Female 5:02 AM CHLORINATOR Gender Identity Not on file Sexual Orientation [...] Oxygen Concentration 32% 05/08/2022 9 :49 AM CHLORINATOR Weight 69.9 kg (154 lb) 11/02/2022 5:50 AM CDT Height 152.4 cm (5') 11/02/2022 5:50 AM CDT Body Mass Index 30.08 11/02/2022 5:50 AM CDT Plan of Treatment Upcoming Encounters Date Type Department Care Team (Late st Contact Info) Description 08/14/2025 1:15 PM CDT Office Visit [facility] - Orthopedic Surgery [address] [place] [id number] Bhaskar Mack MD [address] [facility] [address] [place] [address] Health Maintenance Due Date Last Done Comments [...] 2002 ZOSTER VACCINE (1 of 2) 2002 MEDICARE AWV CALENDAR YEAR 2024 COVID-19 VACCINE ( - season) 2024 02/05/2022, 05/09/2021, 11/28/2020, Additional history exists INFLUENZA VACCINE (#1) 2024 , 04/04/2021, 01/04/2017, Additional history exists Respiratory Syncytial [...] this topic Medical Devices Implanted Type Area Reamer Hand Device Identifier Shelf Expiration Date Model / Serial / Lot Screw 6.5mm 95mm Cassidy Lng Bone Sm Bone Implanted:Qty: 1 on 04/27/2022 by Luis Daniel Roca MD at [facility] [email or web address] [id number] / / Screw 6.5mm 110mm Cassidy Lng Bone Sm Bone Implanted:Qty: 1 on 04/27/2022 by Luis Daniel Roca MD at [facility] [email or web address] [id number] / / Screw Extfix 190mm 6mm [facility] S[facility] Spd Pnt Implanted:Qty: 1 on 04/27/2022 by Luis Daniel Roca MD at [facility] [employer] [id number] / / Head Fem +4mm 03/25 Tpr 36mm Hip Oxnm Implanted:Qty: 1 on 11/02/2022 by Bhaskar Mack MD at [facility] Right: Hip [employer] 06/21/2032 [id number] / / [id number] Shell Actb 52mm Hip 3 Hl Poly R3 Std Implanted:Qty: 1 on 11/02/2022 by Bhaskar Mack MD at [facility] Right: Hip [employer] 07/07/2032 [id number] / / [id number] Screw 6.5mm 25mm Hip Actb Canc Sphrcl Implanted:Qty: 1 on 11/02/2022 by Bhaskar Mack MD at [facility] Right: Hip [employer] 04/15/2032 [id number] / / [id number] Liner Actb R3 20d 52mm 36mm Xlpe Poly Implanted:Qty: 1 on 11/02/2022 by Bhaskar Mack MD at [facility] Right: Hip [employer] 03/09/2031 [id number] / / [id number] Stem Fem 136mm Hip 135d 2 03/25 Std Ofst Implanted:Qty: 1 on 11/02/2022 by Bhaskar Mack MD at [facility] Right: Hip [employer] 02/12/2028 [id number] / / [id number] Explanted Type Area Reamer Hand Device Identifier Shelf Expiration Date Model / Serial / Lot Screw 6.5mm 85mm Cassidy Lng Bone Sm Bone Explanted:Qty: 1 on 04/27/2022 by Luis Daniel Roca MD at [facility] [email or web address] [facility] [id number] / / Gd Pin Orth 450mm 3.2mm Cocr Xtd Acc Explanted:Qty: 2 on 04/27/2022 at [facility] [employer] [facility] [id number] / / Insurance MED[place]ID [place] HUMAN MEDICARE ADV HMO & PPO [place] [id number] MEDICAID [facility] [place] [address] [place] Member Subscriber Plan / Payer (Ef fective for All Dates) Name:Aydin Jose R Member ID:Not on file Relation to Subscriber:Self Name:Aydin Jose Payer ID:Not on file Group ID:Not on file Type:Medicaid [place] Address: [place] [phone] * Guarantor: AYDIN JOSE Account Type Relation to Patient Date of Phone Billing Address Personal/Family [address] [place] [id number] HU[employer]NA [place]ID [place] Member Subscriber Plan / Payer (Ef fective for All Dates) Name:Aydin Jose R Member ID:Not on file Relation to Subscriber:Self Name:Aracely Joseey R Payer ID:Not on file Group ID:Not on file Type:Medicaid [place] Address: [place] [phone] * Guarantor: AYDIN JOSE Account Type Relation to Patient Date of Phone Billing Address Personal/Family [address] MED[place]ID [place] Member Subscriber Plan / Payer (Ef fective for All Dates) Name:Aydin Jose R Member ID:Not on file Relation to Subscriber:Self Name:Aydin Jose R Payer ID:Not on file Group ID:Not on file Type:Medicaid [place] Address: [place] [phone] TP THIRD CONSTITUTION PARTY LIABILITY MED[place]ID [place] Advance Directives * [...] 5:05 AM 05/12/2022 7:18 PM Care Teams Cooker Operator Relationship Specialty Start Date End Date Sonai Ugalde, MAINTENANCE MACHINE REPAIRER-SHOW HOST/HOSTESS [address] [place] [address] PCP - General Nurse Practitioner Family 04/24/22
--- OUTSIDE RECORDS SUMMARY | 2024-12-26 16:52 | XMS_ITS | Clinical Summary ---
Author Organization [facility] Address [address] [place] [address] Phone Care Team Providers Care Conductor/Brakeman Name Role Phone Sonia Ugalde APRN Primary Care Provider [phone] Allergies Active Allergy Reactions Criticality Noted Date [...] by mouth daily. Active ergocalciferol (VITAMIN D) 60533 UNIT Capsule Vitamin D2 1,250 mcg (50,000 [...] 2) 03/27/2018, 11/11/2017, 06/24/2013 Influenza Immunization (#1) 12/11/202401/11, 02/23/2022, 04/04/2021, Additional history exists SARS-COV-2 Immunization ( season) 2024 01/29/2023, 02/05/2022, 05/09/2021, Additional history exists Pneumococcal [...] MEDICAID [place] MED[place]ARE C HU[employer] Care Teams Conductor/Brakeman Relationship Specialty Start Date End Date Sonia Ugalde APRN [address] [place] [address] PCP - General Family Medicine 11/11/23
--- OUTSIDE RECORDS SUMMARY | 2024-12-26 16:52 | XMS_ITS | Encounter Summary ---
Author Organization [facility] Address [address] [place] [address] Care Team Providers Care Computer Systems Software Engineer Name Role Phone Sonia Ugalde NP Primary Care Provider Encounter Details Date Type Department Care Team (Late st Contact Info) Description 09/17/2018 Abstract SFL CONVERSION [address] [place] [address] , Generic Conversion, Social History Tobacco Use Types Packs/Day Years Used Date Smoking Tobacco: Never Assessed Comments Unknown Sex and Gender Information Value Date Recorded Sex Assigned at Not on file Legal Sex Female 5:53 PM WELDER OPERATOR Gender Identity Not on file Sexual Orientation Not on file documented as of this encounter Plan of Treatment Not on file documented as of this encounter Visit Diagnoses Not on filedocumented in this encounter Care Teams Computer Systems Software Engineer Relationship Specialty Start Date End Date Sonia Ugalde NP [address] [place] [address] PCP - General FAMILY MEDICINE SPORTS MEDICINE 05/12/22 documented as of this encounter
[2024-12-26 16:58] LABS: INR 1.2; Prothrombin Time 15.5 Seconds (11.1-14.7)
[2024-12-26 17:30] LABS: Hepatitis B Surface Antigen Negative (Negative)
[2024-12-26 17:36] LABS: HAV RESULT Negative (Negative); Hepatitis B Core IgM Result Negative (Negative)
== END 2024-12-26 15:59 | disposition home or self-care (01) ==
LOC: ANHLAB 16:00
PROVIDERS: PCP Internal Medicine; Visit Provider Internal Medicine
DX: R74.8 Abnormal levels of other serum enzymes (principal); K74.60 Unspecified cirrhosis of liver
CPT/HCPCS: 36415; 80074; 85610; 86381

== ENCOUNTER 2025-01-19 13:43 | Outpatient (CLI) | payer MEDICARE, MEDICAID, SELFPAY ==
[2025-01-19 14:50] LABS: INR 1.0; Prothrombin Time 13.2 Seconds (11.1-14.7)
[2025-01-19 15:26] LABS: Ferritin 72.30 ng/mL (11.1-264)
[2025-01-20 07:09] LABS: GGT 13 IU/L (0-60)
[2025-01-23 12:08] LABS: ANA by IFA Rfx Titer/Pattern Positive (.)
== END 2025-01-19 13:44 | disposition home or self-care (01) ==
PROVIDERS: PCP Internal Medicine; Visit Provider Nurse Practitioner Family
DX: K74.60 Unspecified cirrhosis of liver (principal)
CPT/HCPCS: 36415; 82103; 82390; 82728; 82977; 85610; 86015; 86038; 86381

== ENCOUNTER 2025-02-08 16:09 | Emergency (ER) | payer MEDICARE, MEDICAID, SELFPAY ==
[2025-02-08] VITALS (12 sets, daily range): BP systolic 102–125; BP diastolic 61–77; PULSE 90–112; RESP 17–28; TEMP 36.4; O2SAT 94–99
--- NOTE | ~2025-02-08 | XR_ITS ---
EXAMINATION: XR chest 2V, 02/08/2025 17:24 CDT HISTORY: SOB COMPARISON: No comparisons available. Technique: 2 views obtained. Findings: Small basilar infiltrates. Mild COPD changes. No pneumothorax. Heart is normal size. Mediastinal and hilar contours are within normal limits. Bony thorax no acute abnormality. Impression: Early bilateral pneumonia Reviewed, dictated and finalized at location P. Impression: Early bilateral pneumonia
--- NOTE | 2025-02-08 16:11 | ECG_ITS ---
Test Date: 2025-02-08 16:19:44 Measurements Intervals [place] Rate: 98 P: 36 CT: 119 QRS: 68 QRSD: 72 T: 62 QT: 335 QTc: 428 Interpretive Statements SINUS RHYTHM LOW QRS VOLTAGE IN PRECORDIAL LEADS POSSIBLE RIGHT VENTRICULAR CONDUCTION DELAY BASELINE ARTIFACT- I, II, III, AVR, AVL, AVF, V1-V2 BORDERLINE ECG Compared to ECG 05/15/2024 20:25:30 NO SIGNIFICANT CHANGE Electronically Signed On 02-08-2025 16:33:45 CDT by Freedom Mendoza D.O.
--- OUTSIDE RECORDS SUMMARY | 2025-02-08 16:12 | XMS_ITS | Patient Health Record ---
Author Organization [facility] [employer] Address [address] [place] [address] Care Team Providers Care Salesperson Automobiles Name Role Phone Sonia Miller Primary Care Provider Nathalia Sofia Unavailable [phone] Allergies Allergen (clinical drug ingredient) Drug/Non Drug [...] Date End Date Status Azithromycin 250 MG Tablet Oral Active Lisinopril 10 MG Tablet Oral Active Aspirin 81 MG Tablet Chewable Oral Active Gamunex-C 10 gram/100 mL (10 %) Solution Injection *Pick strength-form from [facility] for eRX* Active predniSONE 50 MG Tablet Oral Active Pregabalin 50 MG Capsule Oral Active Venlafaxine HCl ER 150 MG Capsule Extended Release 24 Hour Oral Active Omeprazole 40 MG Capsule Delayed Release Oral Active ID Now COVID-19 Kit In Vitro *Reorder fro [facility] for eRx and Interaction Alerts* Active HYDROcodone-Acetaminop hen 5-325 MG Tablet Oral Active Potassium Chloride ER 10 MEQ Capsule Extended Release Oral Active Cetirizine HCl 10 MG Tablet Oral Active rOPINIRole HCl 1 MG Tablet Oral Active Ergocalciferol 1.25 MG (50999 UT) Capsule Oral Active Alendronate Sodium 70 MG Tablet Oral Active SUMAtriptan Succinate 50 MG Tablet Oral Active ProAir HFA 108 (90 Base) MCG/ACT Aerosol Solution Inhalation Active Topiramate 25 MG Capsule Sprinkle Oral Active Magnesium Oxide (Elemental) 400 MG Tablet Oral *[email or web address] and Interaction Alerts* Active Docusate Sodium 100 MG Capsule Oral Active Gabapentin 300 MG Capsule Oral Active Eliquis 2.5 MG Tablet Oral Active predniSONE 20 MG Tablet Oral Active Levalbuterol HCl 1.25 MG/3ML Nebulization Solution Inhalation Active Meloxicam 7.5 MG Tablet Oral Active busPIRone HCl 15 MG Tablet Oral Active Montelukast Sodium 10 MG Tablet Oral Active Cefpodoxime Proxetil 200 MG Tablet Oral Active WIXELA INHUB 250 MCG-50 MCG/DOSE POWDER FOR INHALATION *[facility]order [email or web address] for eRx and Interaction Alerts* Active EPINEPHrine 0.3 MG/0.3ML Solution Auto-injector Injection Active predniSONE 10 MG Tablet Oral Active Levothyroxine Sodium 88 MCG Tablet Oral Active Ferrous Sulfate 325 (65 Fe) MG Tablet Oral Active dilTIAZem HCl ER Beads 120 MG Capsule Extended Release 24 Hour Oral Active Ciprofloxacin HCl 250 MG Tablet Oral Active Daliresp 500 MCG Tablet Oral Active Spiriva HandiHaler 18 MCG Capsule Inhalation Active levoFLOXacin 750 MG Tablet Oral Active Atorvastatin Calcium 40 MG Tablet Oral Active Ipratropium-Albuterol 0.5-2.5 (3) MG/3ML Solution Inhalation Active Social History Sex Assigned At : Social History Observation Description Sex Assigned At Female Encounters Encounter Location Date Provider Diagnosis [facility] [address] [address] 05/22/2024 Nathalia Trejo Plan Of Treatment No Information Insurance Providers Payer Name Payer Address Payer Phone Subscriber Number Group Number Insured Name Patient Relationship to Insured Coverage Start Date Coverage End Date [employer] Medicare Replacemen t/Advantag e - Ppo [address] [address] [place] [address] [id number] AYDIN JOSE Self - patient is the insured Medicaid-[place] l Medicaid [address] [address] [place] [address] [id number] REBECA AYDIN Self - patient is the insured Medical (General) History Medical History History ICD Code Anxiety Arthritis COPD Depression Chronic respiratory failure Essential HTN GERD Mixed HLD HYpothyroidism KAREN Pneumonia Pre diabetes Tachycardia Ulcer Uterine cancer Vit D deficiency
--- OUTSIDE RECORDS SUMMARY | 2025-02-08 16:12 | XMS_ITS | Encounter Summary ---
Author Organization [facility] Address [address] [place] [address] Care Team Providers Care Meter Repairer Helper Name Role Phone Sonia Ugalde NP Primary Care Provider [phone] Encounter Details Date Type Department Care Team (Late st Contact Info) Description 09/17/2018 Abstract SFL CONVERSION [address] [place] [address] , Generic Conversion, Social History Tobacco Use Types Packs/Day Years Used Date Smoking Tobacco: Never Assessed Comments Unknown Sex and Gender Information Value Date Recorded Sex Assigned at Not on file Legal Sex Female 5:53 PM HR RECRUITER Gender Identity Not on file Sexual Orientation Not on file documented as of this encounter Plan of Treatment Not on file documented as of this encounter Visit Diagnoses Not on filedocumented in this encounter Care Teams Meter Repairer Helper Relationship Specialty Start Date End Date Sonia Ugalde NP [address] [place] [address] PCP - General FAMILY MEDICINE SPORTS MEDICINE 05/12/22 documented as of this encounter
--- OUTSIDE RECORDS SUMMARY | 2025-02-08 16:12 | XMS_ITS | Clinical Summary ---
Author Organization [facility] Address [address] [place] [address] Phone Care Team Providers Care Leg Breaker Name Role Phone Sonia Ugalde APRN Primary Care Provider [phone] Allergies Active Allergy Reactions Criticality Noted Date [...] by mouth daily. Active ergocalciferol (VITAMIN D) 57329 UNIT Capsule Vitamin D2 1,250 mcg (50,000 [...] Immunization (2 of 2) 03/27/2018, 11/11/2017, 06/24/2013 Medicare Initial AWV G0438 04/12/2023 Influenza Immunization (#1) 12/11/202401/11, 02/23/2022, 04/04/2021, Additional history exists SARS-COV-2 Immunization (2024- season) 2024 01/29/2023, 02/05/2022, 05/09/2021, Additional history [...] MEDICAID [place] C HUMANA Care Teams Leg Breaker Relationship Specialty Start Date End Date Sonia Ugalde APRN [address] [place] [address] PCP - General Family Medicine 11/11/23
--- OUTSIDE RECORDS SUMMARY | 2025-02-08 16:12 | XMS_ITS | Clinical Summary ---
Author Organization [facility] Address [address] [facility] [place] [address] Care Team Providers Care Technical Services Consultant Name Role Phone Chris Ugaldebecky Judge APRN-ACCOUNT REVIEW SPECIALIST Primary Care Provider + Source Comments [facility],non-owned Affiliates and Associated Physician Practices is amultiple site organization consisting of ambulatory clinics and hospital sitesin [place], [place], [place] and [place]. This disclosure is being madepursuant to the Care Everywhere program and may not contain all information available regarding this patient. Last updated 17.[facility] Allergies Active Allergy Reactions Criticality Noted Date [...] Pressure Disorder Active ergocalciferol (Drisdol) 1.25 MG (23589 UT) capsuleIndicatio ns:Vitamin D Deficiency Vitamin D2 [...] Major Depressive Disorder Active OxygenIndication s:copd/ sob [place] 2 L/min into the nose continuous Reasons: [...] Recorded Patient Health Questionnaire-2 Score 0 08/07/2024 [facility] - [...] place to sleep or slept in a penitentiary (including now)? No 04/25/2022 Comments Unknown Sex and Gender Information Value Date Recorded Sex Assigned at Not on file Legal Sex Female 5:02 AM PETROLOGY TEACHER Gender Identity Not on file Sexual Orientation [...] Oxygen Concentration 32% 05/08/2022 9 :49 AM PETROLOGY TEACHER Weight 69.9 kg (154 lb) 11/02/2022 5:50 AM CDT Height 152.4 cm (5') 11/02/2022 5:50 AM CDT Body Mass Index 30.08 11/02/2022 5:50 AM CDT Plan of Treatment Upcoming Encounters Date Type Department Care Team (Late st Contact Info) Description 08/14/2025 1:15 PM CDT Office Visit [facility] - [facility] [address] [place] [id number] Bhaskar Mack MD [address] [facility] [address] [place] [address] Health Maintenance Due Date Last Done Comments [...] this topic Medical Devices Implanted Type Area Ice Cream Van Vendor Device Identifier Shelf Expiration Date Model / Serial / Lot Screw 6.5mm 95mm Cassidy Lng Bone Sm Bone Implanted:Qty: 1 on 04/27/2022 by Luis Daniel Roca MD at [facility] [employer] [id number] / / Screw 6.5mm 110mm Cassidy Lng Bone Sm Bone Implanted:Qty: 1 on 04/27/2022 by Luis Daniel Roca MD at [facility] [employer] [id number] / / Screw Extfix 190mm 6mm [facility] Spd Pnt Implanted:Qty: 1 on 04/27/2022 by Luis Daniel Roca MD at [facility] [employer]ynthe[employer] [id number] / / Head Fem +4mm 03/25 Tpr 36mm Hip Oxnm Implanted:Qty: 1 on 11/02/2022 by Bhaskar Mack MD at [facility] Right: Hip [employer] 06/21/2032 [id number] / / [id number] Shell Actb 52mm Hip 3 Hl Poly R3 Std Implanted:Qty: 1 on 11/02/2022 by Bhaskar Mack MD at [facility] Right: Hip [employer] 07/07/2032 [id number] / / [id number] Screw 6.5mm 25mm Hip Actb Canc Sphrcl Implanted:Qty: 1 on 11/02/2022 by Bhaskar Mack MD at [facility] Right: Hip [employer] 04/15/2032 [id number] / / [id number] Liner Actb R3 20d 52mm 36mm Xlpe Poly Implanted:Qty: 1 on 11/02/2022 by Bhaskar Mack MD at [facility] Right: Hip [employer] 03/09/2031 [id number] / / [id number] Stem Fem 136mm Hip 135d 2 03/25 Std Ofst Implanted:Qty: 1 on 11/02/2022 by Bhaskar Mack MD at [facility] Right: Hip [employer] 02/12/2028 [id number] / / [id number] Explanted Type Area Ice Cream Van Vendor Device Identifier Shelf Expiration Date Model / Serial / Lot Screw 6.5mm 85mm Cassidy Lng Bone Sm Bone Explanted:Qty: 1 on 04/27/2022 by Luis Daniel Roca MD at [facility] [employer] Neph[employer]ara[employer]ia [facility] [id number] / / Gd Pin Orth 450mm 3.2mm Cocr Xtd Acc Explanted:Qty: 2 on 04/27/2022 at [facility] [employer] [facility] [id number] / / Insurance MEDICAID - [place] H[place]AN MEDICARE ADV HMO & PPO [place] [id number] MEDICAID [facility] [place] [address] MEDICAID - [place] Member Subscriber Plan / Payer (Ef fective for All Dates) Name:Aydin Jose R Member ID:Not on file Relation to Subscriber:Self Name:Aydin Jose Payer ID:Not on file Group ID:Not on file Type:Medicaid [place] Address: [place] [phone] * Guarantor: AYDIN JOSE Account Type Relation to Patient Date of Phone Billing Address Personal/Family [address] [place] [place] [id number] HUMANA MED[place]ID [place] Member Subscriber Plan / Payer (Ef fective for All Dates) Name:Aydin Jose R Member ID:Not on file Relation to Subscriber:Self Name:Aracely Joseey R Payer ID:Not on file Group ID:Not on file Type:Medicaid [place] Address: [place] [phone] * Guarantor: AYDIN JOSE Account Type Relation to Patient Date of Phone Billing Address Personal/Family [address] MED[place]ID [place] Member Subscriber Plan / Payer (Ef fective for All Dates) Name:Aydin Jose R Member ID:Not on file Relation to Subscriber:Self Name:Aydin Jose R Payer ID:Not on file Group ID:Not on file Type:Medicaid [place] Address: [place] [phone] TP THIRD [employer] MEDICAID - [place] Advance Directives [...] 5:05 AM 05/12/2022 7:18 PM Care Teams Technical Services Consultant Relationship Specialty Start Date End Date Sonia Ugalde, COMMERCIAL LOAN CLOSER-ACCOUNT REVIEW SPECIALIST [address] [place] [address] PCP - General Nurse Practitioner Family 04/24/22
[2025-02-08 16:58] LABS: Hematocrit 34.9 % (37.0-47.0); Hemoglobin 13.1 g/dL (12.0-15.0); Immature Granulocyte Percent A 0.3 % (0-0.5); Lymphocytes Absolute Auto 0.88 K/mm3 (0.9-3.2); Mean Corpuscular HGB Conc 37.5 g/dl (32-36); Mean Corpuscular Hemoglobin 36.9 pg (26-34); Mean Corpuscular Volume 98.3 fl (80-100); Nucleated Red Blood Cells Absolute Auto 0.000 K/mm3 (0.0-0.012); Nucleated Red Blood Cells Perc 0.0 % (0.0-0.2); Platelet Count Result 237 k/mm3 (150-375); Red Blood Count 3.55 M/mm3 (4.2-5.4); White Blood Count 5.8 K/mm3 (4.5-10.0)
[2025-02-08 17:08] LABS: Alanine Aminotransferase 17 U/L (6-35); Albumin Level 4.0 g/dL (3.5-5.1); Alkaline Phosphatase 145 U/L (38-126); Anion Gap 7 mmol/L (4-12); Aspartate Amino Transferase 28 U/L (14-36); Bilirubin,Total 0.5 mg/dL (0.2-1.3); Blood Urea Nitrogen 16 mg/dL (7-17); Calcium 8.9 mg/dL (8.4-10.2); Carbon Dioxide 28 mmol/L (22-30); Chloride 103 mmol/L (98-107); Estimated CRCL calculation 47 ml/min; Estimated Glomerular Filt Rate > 60; Glucose 95 mg/dL (65-110); Potassium 4.1 mmol/L (3.4-5.0); Sodium 138 mmol/L (137-145); Total Protein 6.9 g/dL (6.3-8.2)
--- OUTSIDE RECORDS SUMMARY | 2025-02-08 17:55 | XMS_ITS | Clinical Summary ---
Author Organization [facility] Address [address] [place] [address] Care Team Providers Care Casting Chipper Name Role Phone Sonia Ugalde NP Primary Care Provider [phone] Allergies Active Allergy Reactions Criticality Noted Date [...] Nose Inflammation Active vitamin D2, ergocalciferol, (DRISDOL) 20842 UNITS capsuleIndications: supplement Take 50,000 Units by [...] on file Legal Sex Female 5:53 PM HOLISTIC NUTRITIONIST Gender Identity Not on file Sexual Orientation Not on file Last Filed Vital Signs Vital Sign Reading Time Taken Comments Blood Pressure 128/62 06/19/2022 1:04 PM HOLISTIC NUTRITIONIST Pulse 97 06/19/2022 1:04 PM HOLISTIC NUTRITIONIST Temperature 36.9 C (98.4 F) 06/19/2022 1:04 PM HOLISTIC NUTRITIONIST Respiratory Rate 18 06/19/2022 1:04 PM HOLISTIC NUTRITIONIST Oxygen Saturation 98% 06/19/2022 1:04 PM HOLISTIC NUTRITIONIST Inhaled Oxygen Concentration - - Weight 72.1 kg (158 lb 15.2 oz) 05/20/2022 3:35 AM HOLISTIC NUTRITIONIST Height 152.4 cm (5') 05/12/2022 8:20 PM HOLISTIC NUTRITIONIST Body Mass Index 31.04 05/12/2022 8:20 PM HOLISTIC NUTRITIONIST Plan of Treatment Health Maintenance Due Date Last Done Comments Colorectal Cancer Screening Colonoscopy (10 Years) 1952 Hepatitis C 1970 Mammogram Screening 1992 Annual Medicare Wellness Visit 2017 Dexa Scan (General) 2017 Zoster Vaccines (3 of 3) 03/27/2018 018, 11/11/2017, 06/24/2013 COVID-19 Vaccine ( season) 2024 02/05/2022, 05/09/2021, 11/28/2020, Additional history exists Influenza Adult (#1) 2025 04/04/2021, 01/23/2019, 01/21/2018, Additional history exists RSV Immunization or 60+ Years (1 - 1-dose 75+ series) 12/25/2027 DTaP, Tdap and Td Vaccines (2 - Td or Tdap) 03/03/2029 03/03/2019 Pneumococcal Vaccine: 50+ Years Completed 01/23/2019, 01/21/2018, 09/29/2015 Hepatitis A Vaccines Aged Out No long er eligible based on patient's age to complete this topic Meningococcal B Vaccine Aged Out No l onger eligible based on patient's age to complete this topic Meningococcal Vaccine Aged Out No nancy carlie eligible based on patient's age to complete this topic RSV Immunizations Under 20 Months Aged Out No longer eligible based on patient's age to complete this topic Insurance MEDICAID HUMANA MEDICARE Advance Directives * Full Code (Latest Code Status on File) Date Activated Date Inactivated Comments 05/21/2022 10:44 AM * Full Code Date Activated Date Inactivated Comments 05/19/2022 12:18 PM 05/20/2022 12:53 PM Care Teams Casting Chipper Relationship Specialty Start Date End Date Sonia Ugalde NP [address] [place] [address] PCP - General FAMILY MEDICINE SPORTS MEDICINE 05/12/22
--- OUTSIDE RECORDS SUMMARY | 2025-02-08 17:55 | XMS_ITS | Encounter Summary ---
Author Organization [facility] Address [address] [place] [address] Care Team Providers Care Armor Senior Sergeant Name Role Phone Sonia Ugalde NP Primary Care Provider [phone] Encounter Details Date Type Department Care Team (Late st Contact Info) Description 09/17/2018 Abstract SFL CONVERSION [address] [place] [address] , Generic Conversion, Social History Tobacco Use Types Packs/Day Years Used Date Smoking Tobacco: Never Assessed Comments Unknown Sex and Gender Information Value Date Recorded Sex Assigned at Not on file Legal Sex Female 5:53 PM HOME APPLIANCE INSTALLER Gender Identity Not on file Sexual Orientation Not on file documented as of this encounter Plan of Treatment Not on file documented as of this encounter Visit Diagnoses Not on filedocumented in this encounter Care Teams Armor Senior Sergeant Relationship Specialty Start Date End Date Sonia Ugalde NP [address] [place] [address] PCP - General FAMILY MEDICINE SPORTS MEDICINE 05/12/22 documented as of this encounter
--- OUTSIDE RECORDS SUMMARY | 2025-02-08 17:55 | XMS_ITS | Clinical Summary ---
Author Organization [facility] Address [address] [place] [address] Phone Care Team Providers Care Police Commanding Officer Name Role Phone Sonia Ugalde APRN Primary Care Provider [phone] Allergies Active Allergy Reactions Criticality Noted Date [...] by mouth daily. Active ergocalciferol (VITAMIN D) 64519 UNIT Capsule Vitamin D2 1,250 mcg (50,000 [...] MEDICAID [place] MEDICARE C HUMANA Care Teams Police Commanding Officer Relationship Specialty Start Date End Date Sonia Ugalde APRN [address] [place] [address] PCP - General Family Medicine 11/11/23
--- OUTSIDE RECORDS SUMMARY | 2025-02-08 17:55 | XMS_ITS | Clinical Summary ---
Author Organization [facility] Address [address] [facility] [address] Care Team Providers Care Phytochemistry Professor Name Role Phone Chris Ugaldebecky Judge APRN-JOINTER MACHINE Primary Care Provider + Source Comments [facility],non-owned Affiliates and Associated Physician Practices is amultiple site organization consisting of ambulatory clinics and hospital sitesin [place], [place], [place] and [place]. This disclosure is being madepursuant to the Care Everywhere program and may not contain all information available regarding this patient. Last updated 17.[facility] Allergies Active Allergy Reactions Criticality Noted [...] Pressure Disorder Active ergocalciferol (Drisdol) 1.25 MG (18938 UT) capsuleIndicatio ns:Vitamin D Deficiency Vitamin D2 [...] Major Depressive Disorder Active OxygenIndication s:copd/ sob [place] 2 L/min into the nose continuous Reasons: [...] Recorded Patient Health Questionnaire-2 Score 0 08/07/2024 [facility] - [...] place to sleep or slept in a senior care (including now)? No 04/25/2022 Comments Unknown Sex and Gender Information Value Date Recorded Sex Assigned at Not on file Legal Sex Female 5:02 AM FINANCIAL ADMINISTRATIVE ASSISTANT Gender Identity Not on file Sexual Orientation [...] Oxygen Concentration 32% 05/08/2022 9 :49 AM FINANCIAL ADMINISTRATIVE ASSISTANT Weight 69.9 kg (154 lb) 11/02/2022 5:50 AM CDT Height 152.4 cm (5') 11/02/2022 5:50 AM CDT Body Mass Index 30.08 11/02/2022 5:50 AM CDT Plan of Treatment Upcoming Encounters Date Type Department Care Team (Late st Contact Info) Description 08/14/2025 1:15 PM CDT Office Visit [facility] [address] [place] [phone] Bhaskar Mack MD [address] [facility] [address] [place] [address] Health Maintenance Due Date Last Done Comments [...] this topic Medical Devices Implanted Type Area Golf Course Mechanic Device Identifier Shelf Expiration Date Model / Serial / Lot Screw 6.5mm 95mm Cassidy Lng Bone Sm Bone Implanted:Qty: 1 on 04/27/2022 by Luis Daniel Roca MD at [facility] [employer] [id number] / / Screw 6.5mm 110mm Cassidy Lng Bone Sm Bone Implanted:Qty: 1 on 04/27/2022 by Luis Daniel Roca MD at [facility] [employer] [id number] / / Screw Extfix 190mm 6mm [facility] Ss Spd Pnt Implanted:Qty: 1 on 04/27/2022 by Luis Daniel Roca MD at [facility] [employer] 294.68 / / Head Fem +4mm 03/25 Tpr 36mm Hip Oxnm Implanted:Qty: 1 on 11/02/2022 by Bhaskar Mack MD at [facility] Right: Hip [employer] 06/21/2032 [id number] / / [id number] Shell Actb 52mm Hip 3 Hl Poly R3 Std Implanted:Qty: 1 on 11/02/2022 by Bhaskar Mack MD at [facility] Right: Hip [employer] 07/07/2032 [id number] / / [id number] Screw 6.5mm 25mm Hip Actb Canc Sphrcl Implanted:Qty: 1 on 11/02/2022 by Bhaskar Mack MD at [facility] Right: Hip [employer] 04/15/2032 [id number] / / [id number] Liner Actb R3 20d 52mm 36mm Xlpe Poly Implanted:Qty: 1 on 11/02/2022 by Bhaskar Mack MD at [facility] Right: Hip [employer] 03/09/2031 [id number] / / [id number] Stem Fem 136mm Hip 135d 2 03/25 Std Ofst Implanted:Qty: 1 on 11/02/2022 by Bhaskar Mack MD at [facility] Right: Hip [employer] 02/12/2028 [id number] / / [id number] Explanted Type Area Golf Course Mechanic Device Identifier Shelf Expiration Date Model / Serial / Lot Screw 6.5mm 85mm Cassidy Lng Bone Sm Bone Explanted:Qty: 1 on 04/27/2022 by Luis Daniel Roca MD at [facility] [employer] [facility] [id number] / / Gd Pin Orth 450mm 3.2mm Cocr Xtd Acc Explanted:Qty: 2 on 04/27/[address] [facility] [employer] [facility] [id number] / / Insurance MEDICAID [place] H[place] MEDICARE ADV HMO & PPO [place] [id number] MEDICAID [facility] [place] [address] MEDICAID [place] Member Subscriber Plan / Payer (Ef fective for All Dates) Name:Aydin Jose R Member ID:Not on file Relation to Subscriber:Self Name:Aydin Jose Payer ID:Not on file Group ID:Not on file Type:Medicaid [place] Address: [place] [phone] * Guarantor: AYDIN JOSE Account Type Relation to Patient Date of Phone Billing Address Personal/Family [address] [place] [id number] [employer] [place]ID [place] Member Subscriber Plan / Payer (Ef fective for All Dates) Name:Aydin Jose R Member ID:Not on file Relation to Subscriber:Self Name:Aracely Joseey R Payer ID:Not on file Group ID:Not on file Type:Medicaid [place] Address: [place] [phone] * Guarantor: AYDIN JOSE Account Type Relation to Patient Date of Phone Billing Address Personal/Family [address] MEDICAID [place] Member Subscriber Plan / Payer (Ef fective for All Dates) Name:Aydin Jose R Member ID:Not on file Relation to Subscriber:Self Name:Aydin Jose R Payer ID:Not on file Group ID:Not on file Type:Medicaid [place] Address: [place] [phone] TP THIRD [employer] LIABILITY MEDICAID - [place] Advance [...] 5:05 AM 05/12/2022 7:18 PM Care Teams Phytochemistry Professor Relationship Specialty Start Date End Date Sonia Ugalde, MAILROOM MANAGER-JOINTER MACHINE [address] [place] [address] PCP - General Nurse Practitioner Family 04/24/22
--- NOTE | 2025-02-08 18:49 | ED.SOB ---
HPI - SOB/Dyspnea General Chief Complaint: Shortness of Breath/Dyspnea Stated Complaint: SOB Time Seen by Provider: 02/08/25 17:13 Patient is a 74 year old female with PMH of COPD on 2-3 L of oxygen at home during activity presenting today with an increase in shortness of breath compared to her baseline. She endorses concomitant malaise and exhaustion but denies other URI symptoms, fevers/chills, chest pain, headache, or dizziness. Patient reports no change in her baseline cough. Of note she states that she keeps a UTI endorsing dysuria. Source: patient Mode of arrival: ambulatory Limitations: no limitations Related Data Home Medications ?Medication ?Instructions ?Recorded ?Confirmed ?Last Taken ?Type immune glob G 10 gram/100 100 ml subcut WEEKLY 03/17/20 01/23/25 03/10/20 History mL(10%)-gly-IgA ave 46 mcg/mL injection soln (Gamunex-C) acetaminophen 650 mg 650 mg PO Q12H PRN Pain (Scale 06/07/23 01/23/25 Unknown History tablet,extended release (Tylenol Score 1-3) Arthritis Pain) Allergies Allergy/AdvReac Type Severity Reaction Status Date / Time Penicillins Allergy Unknown Swelling Verified 02/06/25 14:48 Sulfa (Sulfonamide Allergy Unknown Rash Verified 01/23/25 09:00 Antibiotics) Review of Systems Review of Systems: All systems reviewed & are unremarkable except as noted in HPI and below PMFSH Past Medical History Medical History Chronic nausea Chronic hypoxic respiratory failure, on home oxygen therapy 2 L at rest 4 L with activity Osteopenia Alternating constipation and diarrhea Herpes simplex type 2 infection Family history of aneurysm of blood vessel of brain Overweight Postmenopausal Former smoker Cervical disc disorder with radiculopathy Chronic migraine Iron deficiency Postmenopausal Pre-diabetes Pulmonary nodule Vitamin D deficiency, unspecified Arthritis of wrist, right Bilateral primary osteoarthritis of knee CVID (common variable immunodeficiency) Eczema Uterine cancer Anxiety Depression Hypothyroid GERD (gastroesophageal reflux disease) Ulcer Hiatal hernia Chronic bronchitis HTN (hypertension) Hyperlipidemia Restless leg syndrome Seasonal allergies Chronic obstructive pulmonary disease Chronic respiratory failure with hypoxia Dyslipidemia Essential hypertension Mixed hyperlipidemia (10/28/18) Obstructive sleep apnea Tachycardia Chronic with baseline heart rate 90s to low 100s Surgical History Surgical History History of hysterectomy History of tonsillectomy History of carpal tunnel release Family History Family History Mother Family history of chronic obstructive pulmonary disease Hypertension Chronic obstructive pulmonary disease Sibling Family history of malignant neoplasm Asthma Grandparent Acute myocardial infarction Social History Social History Social History: 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 She smoked at least 1 pack of cigarettes per day from the time she was a teenager until approximately 2008. She denies any significant alcohol or illicit substance use. She owns her own home and her adult son, [id number] live with her. Her adult grandchild just recently moved in. Code status: Full code (patient would not want tracheostomy or feeding tube but is okay with short-term ventilation. Surrogate decision maker: Nani Francisco (sister) Smoking packs per day: 1 Smoking cigarettes per day: 20.0 Years smoked: 40 Smoking pack-years: 40.00 Smoking status: Former smoker Tobacco type: cigarettes Second hand tobacco smoke exposure: Yes Smoking end date: 04/12/08 Alcohol intake: never Substance use: never Substance use type: does not use Do You Feel Safe in your Home?: Yes Lack of Transportation: No Lack of Food: Never True Current Housing: I Have Housing Concerned About Future Housing: No Difficulty Paying Gas/Electric Bills: No Difficulty Paying for Meds: No Currently Unemployed: No Education: Grade School Difficulty w/ Childcare or Family Care: No Living arrangements: alone Occupation/Education: occupation 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 Gender identity (if verbalized by the patient): Female Spiritual care concerns: No Agree to blood products: No Exam Narrative: GENERAL: Well-appearing, well-nourished, and in no acute distress. HEAD: Normocephalic, atraumatic. EYES: PERRLA and EOMI. ENT: Nares clear, no rhinorrhea or epistaxis. Mucous membranes moist. Oropharynx without tonsillar hypertrophy exudate or other lesions. Bilateral TMs pearly cruz non-bulging NECK: Supple. No adenopathy or masses. No carotid bruits or JVD CHEST: Clear to auscultation. No respiratory distress. Mild LLQ expiratory wheezing. Mildly decreased lung sounds in all quadrants. HEART: Regular rate and rhythm. No murmur heard. Normal peripheral pulses. ABDOMEN: Soft, nondistended, normal active bowel sounds. Mild suprapubic and epigastric tenderness. EXTREMITIES: Normal range of motion. No edema. SKIN: Warm, dry, no rash. NEURO: No focal deficits. Alert and oriented x3. PSYCH: Normal mood and affect Course Course Emergency Course: Patient presented with increased shortness of breath compared to her baseline for the last few days. No increase in oxygen demand and no change in baseline cough. CXR showed early bilateral pneumonia. No leukocytosis but mildly elevated neutrophils. Physical exam revealed decreased lung sounds in all guzman and very mild expiratory wheezing in left lower quadrant. Administered DueNeb which resulted in improved lung sounds in all guzman. Patient also has a UTI. Discharging home on Levofloxacin as well as a short course of steroids. Advised to follow up with primary within the week. Vital Signs Vital signs: Vital Signs Temperature 97.6 F 02/08/25 16:12 Pulse Rate 99 02/08/25 16:12 Respiratory Rate 20 02/08/25 16:12 Blood Pressure 107/61 02/08/25 16:12 Pulse Oximetry 98 02/08/25 16:12 Oxygen Delivery Nasal Cannula 02/08/25 16:12 Oxygen Flow Rate 2 02/08/25 16:12 Temperature 97.6 F 02/08/25 16:34 Pulse Rate 99 02/08/25 19:03 Respiratory Rate 24 H 02/08/25 19:03 Blood Pressure 117/76 02/08/25 18:38 Pulse Oximetry 96 02/08/25 18:38 Oxygen Delivery Nasal Cannula 02/08/25 16:42 Oxygen Flow Rate 2 02/08/25 16:42 MDM - SOB/Dyspnea MDM Narrative Medical decision making narrative: Patient has increased shortness of breath compared to her baseline. Lung sounds improved in all guzman on clinical exam after DuoNeb treatment. Early bilateral pneumonia on chest x-ray. Patient?s EKG is without high-risk changes. Oxygen saturations are normal. Positive for a UTI. Patient is felt to be a reasonable candidate for outpatient antibiotics and steroids. Curb-65 negative and SIRS negative. Medical Records Attestation: I reviewed the patient's medical records. Lab Data Attestation: I reviewed the patient's lab results. 02/08/25 16:50 02/08/25 16:50 Labs: Lab Results 02/08/25 02/08/25 Range/Units 16:50 18:37 WBC 5.8 (4.5-10.0) K/mm3 RBC 3.55 L (4.2-5.4) M/mm3 Hgb 13.1 (12.0-15.0) g/dL Hct 34.9 L (37.0-47.0) % MCV 98.3 (80-100) fl MCH 36.9 H (26-34) pg MCHC 37.5 H (32-36) g/dl RDW 15.5 H (11.5-14.5) % Plt Count 237 (150-375) k/mm3 MPV 9.8 (7.4-10.4) fl Immature Gran % (Auto) 0.3 (0-0.5) % Neut % (Auto) 75.3 H (45.5-73.1) % Lymph % (Auto) 15.2 L (18.3-44.2) % Mills % (Auto) 7.1 (2.6-8.5) % Eos % (Auto) 1.4 (0-4.4) % Baso % (Auto) 0.7 (0.2-1.2) % Lymph # (Auto) 0.88 L (0.9-3.2) K/mm3 Mills # (Auto) 0.4 (0.1-0.6) K/mm3 Eos # (Auto) 0.1 (0-0.3) K/mm3 Baso # (Auto) 0.0 (0.0-0.1) K/mm3 Abs Immat Gran (auto) 0.02 (0.00-0.031) K/mm3 Absolute Neuts (auto) 4.4 (1.3-6.7) K/mm3 Absolute Nucleated RBC 0.000 (0.0-0.012) K/mm3 Nucleated RBC % 0.0 (0.0-0.2) % Sodium 138 (137-145) mmol/L Potassium 4.1 (3.4-5.0) mmol/L Chloride 103 (98-107) mmol/L Carbon Dioxide 28 (22-30) mmol/L Anion Gap 7 (4-12) mmol/L BUN 16 (7-17) mg/dL Creatinine 0.67 L (0.7-1.0) mg/dL Estim Creat Clear Calc 47 ml/min Estimated GFR > 60 (59 - ) Glucose 95 (65-110) mg/dL Calcium 8.9 (8.4-10.2) mg/dL Total Bilirubin 0.5 (0.2-1.3) mg/dL AST 28 (14-36) U/L ALT 17 (6-35) U/L Alkaline Phosphatase 145 H (38-126) U/L Total Protein 6.9 (6.3-8.2) g/dL Albumin 4.0 (3.5-5.1) g/dL Urine Color Yellow (Yellow) Urine Appearance Cloudy H (Clear) Urine pH 6.0 (5.0-9.0) Ur Specific [place] 1.020 (1.001-1.035) Urine Protein Negative (Negative) mg/dL Urine Glucose (UA) Negative (Negative) mg/dL Urine Ketones Negative (Negative) mg/dL Ur Blood (Man) Negative (Negative) Urine Nitrate Positive H (Negative) Urine Bilirubin Negative (Negative) Urine Urobilinogen 1.0 (<2.0) mg/dL Add Ur Microanalysis Reviewed Leukocyte Esterase Rfl 3+ H (Negative) DAWIT/UL Urine RBC 3-5 H (0-2) /hpf Urine WBC >100 H (0-3) /hpf Ur Squamous Epith Cells None seen (Few) /hpf Urine Bacteria 4+ H /hpf Urine Casts 0-2 Imaging Data Attestation: I personally reviewed and interpreted this imaging study as follows: Radiologist's impression: ITS Impressions Chest X-Ray 02/08/25 17:41 Impression: Early bilateral pneumonia ECG Data EKG #1: Attestation: I personally reviewed and interpreted this ECG as follows: ECG completion date: 02/08/25 ECG completion time: 16:19 EKG Interpretation: normal rate, sinus rhythm and non-specific ST changes (Elevation in leads III and aVF indicated to be old therefore no acute changes) Critical Care Time Critical Care Time Critical Care Time: No Discharge Plan Discharge Clinical Impression: Pneumonia Qualifiers: Pneumonia type: due to unspecified organism Laterality: bilateral Lung location: lower lobe of lung Qualified Code(s): J18.9 - Pneumonia, unspecified organism COPD (chronic obstructive pulmonary disease) Qualifiers: COPD type: COPD with acute exacerbation Qualified Code(s): J44.1 - Chronic obstructive pulmonary disease with (acute) exacerbation Urinary tract infection Qualifiers: Urinary tract infection type: site unspecified Hematuria presence: with hematuria Qualified Code(s): N39.0 - Urinary tract infection, site not specified Patient Disposition: Home Condition: Stable Instructions: Antibiotic Form, Urinary Tract Infection in Women (DC), COPD (Chronic Obstructive Pulmonary Disease) (ED), Community Acquired Pneumonia (ED) Additional Instructions: Return if worsening symptoms. Follow-up with PCP in the next week. Patient Language: Slovak Prescriptions: New levofloxacin 500 mg tablet 500 mg PO DAILY Qty: 7 0RF prednisone 50 mg tablet 50 mg PO DAILY Qty: 5 0RF No Action albuterol sulfate [Ventolin HFA] 90 mcg/actuation HFA aerosol inhaler 2 puff inhalation QID PRN (Reason: shortness of breath or wheezing) Qty: 8.5 0RF ProAir RespiClick 90 mcg/actuation aerosol powdr breath activated 1 inh inhalation Q4-6H PRN (Reason: shortness of breath or wheezing) 30 Days Qty: 1 2RF acetaminophen [Tylenol Arthritis Pain] 650 mg tablet extended release 650 mg PO Q12H PRN (Reason: Pain (Scale Score 1-3)) topiramate [Topamax] 50 mg tablet 50 mg PO BID Qty: 180 2RF Ubrelvy 100 mg tablet 100 mg PO ONCE PRN (Reason: migraine headache) Qty: 14 6RF Rx Instructions: as a single dose; may repeat once in >=2 hours after first dose if needed lidocaine 5 % adhesive patch,medicated 1 patch topical DAILY Qty: 15 1RF Rx Instructions: leave on most painful area for up to 12 hrs valacyclovir 500 mg tablet 500 mg PO DAILY Qty: 30 5RF Gamunex-C 10 gram/100 mL (10 %) solution 100 ml subcut WEEKLY Rx Instructions: TAKES ON TUESDAYS guaifenesin [Mucus Relief ER] 600 mg Tablet Extended Release 12hr 1,200 mg PO Q12HR Qty: 14 0RF Prolia 60 mg/mL syringe 60 mg subcut [id number] Qty: 1 1RF Rx Instructions: DUE IN 2024 ondansetron 4 mg tablet,disintegrating See Rx Instructions .ROUTE .COMPLEX Qty: 60 1RF Dose Instruction: DISSOLVE 1 TABLET ON THE TONGUE EVERY 8 HOURS NEEDED FOR NAUSEA/VOMITING Rx Instructions: DISSOLVE 1 TABLET ON THE TONGUE EVERY 8 HOURS NEEDED FOR NAUSEA/VOMITING cetirizine 10 mg tablet See Rx Instructions .ROUTE .COMPLEX Qty: 90 1RF Dose Instruction: TAKE 1 TABLET BY MOUTH EVERY DAY FOR ALLERGIES Rx Instructions: TAKE 1 TABLET BY MOUTH EVERY DAY FOR ALLERGIES roflumilast 500 mcg tablet See Rx Instructions .ROUTE .COMPLEX Qty: 90 3RF Dose Instruction: TAKE 1 TABLET BY MOUTH DAILY X 90 DAYS Rx Instructions: TAKE 1 TABLET BY MOUTH DAILY X 90 DAYS albuterol sulfate 90 mcg/actuation HFA aerosol inhaler See Rx Instructions .ROUTE .COMPLEX Qty: 8.5 2RF Dose Instruction: INHALE 1-2 PUFFS BY MOUTH EVERY 4 TO 6 HOURS NEEDED FOR SHORTNESS OF BREATH Rx Instructions: INHALE 1-2 PUFFS BY MOUTH EVERY 4 TO 6 HOURS NEEDED FOR SHORTNESS OF BREATH omeprazole 40 mg capsule,delayed release(DR/EC) 40 mg PO DAILY Qty: 90 1RF Rx Instructions: TAKE 1 CAPSULE BY MOUTH EVERY DAY venlafaxine 150 mg capsule,extended release 24hr 150 mg PO DAILY Qty: 90 1RF Rx Instructions: TAKE 1 CAPSULE BY MOUTH EVERY DAY potassium chloride 20 mEq tablet extended release 20 meq PO DAILY Qty: 90 1RF fluticasone propion-salmeterol 250-50 mcg/dose blister with device See Rx Instructions .ROUTE .COMPLEX Qty: 180 3RF Dose Instruction: INHALE 1 PUFF BY MOUTH EVERY 12 HOURS- RINSE AND SPIT AFTER USE Rx Instructions: INHALE 1 PUFF BY MOUTH EVERY 12 HOURS- RINSE AND SPIT AFTER USE levalbuterol HCl 1.25 mg/3 mL solution for nebulization See Rx Instructions .ROUTE .COMPLEX 90 Days Qty: 810 1RF Dose Instruction: INHALE THE CONTENTS OF 1 VIAL VIA NEBULIZER 3 TIMES DAILY NEEDED FOR SHORTNESS OF BREATH/WHEEZING Rx Instructions: INHALE THE CONTENTS OF 1 VIAL VIA NEBULIZER 4 TIMES DAILY NEEDED FOR SHORTNESS OF BREATH/WHEEZING lisinopril 10 mg tablet See Rx Instructions .ROUTE .COMPLEX Qty: 90 1RF Dose Instruction: TAKE 1 TABLET BY MOUTH EVERY DAY Rx Instructions: TAKE 1 TABLET BY MOUTH EVERY DAY levothyroxine 88 mcg tablet See Rx Instructions .ROUTE .COMPLEX Qty: 90 1RF Dose Instruction: TAKE 1 TABLET BY MOUTH EVERY DAY Rx Instructions: TAKE 1 TABLET BY MOUTH EVERY DAY tiotropium bromide [Spiriva with HandiHaler] 18 mcg capsule, w/inhalation device 18 mcg inhalation DAILY Qty: 30 11RF Rx Instructions: INHALE THE CONTENTS OF 1 CAPSULE BY MOUTH ONCE DAILY atorvastatin 40 mg tablet See Rx Instructions .ROUTE .COMPLEX Qty: 90 1RF Dose Instruction: TAKE 1 TABLET BY MOUTH EVERY DAY Rx Instructions: TAKE 1 TABLET BY MOUTH EVERY DAY montelukast 10 mg tablet See Rx Instructions .ROUTE .COMPLEX Qty: 90 1RF Dose Instruction: TAKE 1 TABLET BY MOUTH EVERY DAY Rx Instructions: TAKE 1 TABLET BY MOUTH EVERY DAY buspirone 15 mg tablet See Rx Instructions .ROUTE .COMPLEX Qty: 180 1RF Dose Instruction: TAKE 1 TABLET BY MOUTH TWICE A DAY Rx Instructions: TAKE 1 TABLET BY MOUTH TWICE A DAY ergocalciferol (vitamin D2) 1,250 mcg (50,000 unit) capsule 1,250 mcg PO [id number] Qty: 6 3RF Rx Instructions: NEEDS ON WEDNESDAY ferrous sulfate 325 mg (65 mg iron) tablet See Rx Instructions .ROUTE .COMPLEX Qty: 90 1RF Dose Instruction: TAKE 1 TABLET BY MOUTH EVERY DAY Rx Instructions: TAKE 1 TABLET BY MOUTH EVERY DAY ropinirole 1 mg tablet See Rx Instructions .ROUTE .COMPLEX Qty: 90 3RF Dose Instruction: TAKE 1 TABLET BY MOUTH 1-2 HOURS BEFORE BEDTIME Rx Instructions: TAKE 1 TABLET BY MOUTH 1-2 HOURS BEFORE BEDTIME methylprednisolone 4 mg tablets,dose pack See Rx Instructions PO PER PKG DIR Qty: 21 0RF Rx Instructions: PO PER PKG DIR diltiazem HCl 120 mg capsule,extended release 24hr See Rx Instructions .ROUTE .COMPLEX Qty: 90 2RF Dose Instruction: TAKE 1 CAPSULE BY MOUTH EVERY DAY Rx Instructions: TAKE 1 CAPSULE BY MOUTH EVERY DAY prednisone 10 mg tablet 10 mg PO DAILY MDD COPD exac Qty: 30 0RF Rx Instructions: Take 4 a day for 3 days in the morning with food, decreased by 1 tablet every 3 days until completed. prednisone 10 mg tablet 10 mg PO DAILY Qty: 30 0RF Rx Instructions: Take 4 a day for 3 days in the morning with food, decreased by 1 tablet every 3 days until completed. Follow-up/Referrals: Efe Ladd DO [Primary Care Provider, Internal Medicine]
[2025-02-08] MEDS: IPRATROPIUM 0.5 MG/ALBUTEROL SULFATE 2.5 MG (BASE) AMPUL.NEB 3 ML INHALATION (18:55)
[2025-02-08 19:09] LABS: Add Urine Microscopic? YES; Appearance Urine Cloudy (Clear); Glucose Urine UA Negative (Negative); Leukocyte Esterase Ur 3+ LEU/UL (Negative); Need Manual Microscopic Reviewed; Nitrate Urine Positive (Negative); Non Pathogenic Casts 0-2; Specific Grav Ur 1.020 (1.001-1.035)
[2025-02-08] MEDS: dexAMETHasone SOD PHOS INJ 10 MG/ML 1 ML VIAL IM (20:22)
== END 2025-02-08 21:10 | disposition home or self-care (01) ==
PROVIDERS: Family Medicine; PCP Internal Medicine
DX: J18.9 Pneumonia, unspecified organism (principal); J44.1 Chronic obstructive pulmonary disease with (acute) exacerbation; N39.0 Urinary tract infection, site not specified; J96.11 Chronic respiratory failure with hypoxia; Z99.81 Dependence on supplemental oxygen; I10 Essential (primary) hypertension; E78.2 Mixed hyperlipidemia; E55.9 Vitamin D deficiency, unspecified; E61.1 Iron deficiency; E03.9 Hypothyroidism, unspecified; R73.03 Prediabetes; D83.9 Common variable immunodeficiency, unspecified; K44.9 Diaphragmatic hernia without obstruction or gangrene; G25.81 Restless legs syndrome; M85.80 Other specified disorders of bone density and structure, unspecified site; F41.9 Anxiety disorder, unspecified; F32.A Depression, unspecified; Z87.891 Personal history of nicotine dependence; Z90.710 Acquired absence of both cervix and uterus; Z79.620 Long term (current) use of immunosuppressive biologic; Z79.899 Other long term (current) drug therapy; R94.31 Abnormal electrocardiogram [ECG] [EKG]
CPT/HCPCS: 36415; 71046; 80053; 81001; 85025; 87077; 87086; 87186; 93005; 94640; 96372; 99284; J1100

== ENCOUNTER 2025-02-28 17:30 | Inpatient (IN) | payer MEDICARE, MEDICAID, SELFPAY ==
--- NOTE | ~2025-02-28 | CT_ITS ---
EXAMINATION: CTA chest PE protocol DATE: 03/01/2025 17:04 INDICATION: Chest pain. Lower extremity edema pain. TECHNIQUE: Computed tomography angiography (CTA) of the chest was performed with 100 mL Omnipaque-350 intravenous contrast timed to evaluate the pulmonary arteries. Coronal maximum intensity projection 3D-reconstructions were created by the technologist. Automated exposure control and iterative reconstruction technique were employed. The dose-length product was 258.57 mGy-cm. COMPARISON: Lower extremity venous Doppler dated 03/01/2025. FINDINGS: Significant emphysematous lungs without acute pulmonary lesions. No evidence of pulmonary emboli. Thoracic aorta shows atherosclerotic changes. Moderate calcific changes at the origin of superior mesenteric artery in the upper abdomen. IMPRESSION: 1. No evidence of pulmonary emboli. Significant emphysematous changes of lungs. Reviewed, dictated and finalized at location T. DING OPERATOR
--- NOTE | ~2025-02-28 | US_ITS ---
EXAMINATION: US venous doppler [facility] DATE: 03/01/2025 16:58 INDICATION: Cramps TECHNIQUE: Grayscale ultrasound images without and with compression and Doppler ultrasound images of the bilateral lower extremity veins were obtained. COMPARISON: None. FINDINGS: The visualized portions of right common femoral vein, profunda (deep) femoral vein, femoral vein, popliteal vein, peroneal veins, posterior tibial veins, and greater saphenous vein outflow are patent. The visualized portions of left common femoral vein, profunda femoral vein, femoral vein, popliteal vein, peroneal veins, posterior tibial veins, and greater saphenous vein outflow are patent. IMPRESSION: 1. No deep venous thrombosis. Reviewed, dictated and finalized at location A. LE PRODUCERS
--- NOTE | ~2025-02-28 | XR_ITS ---
Examination: XR chest 1V portable Clinical History: copd Comparison: CTA chest 2 days prior Technique: Portable AP Findings: Heart size normal. Emphysema. Hazy opacity left lung likely rotation and soft tissue artifact. No acute bony abnormality. IMPRESSION: 1. No acute cardiopulmonary findings given portable technique. Reviewed, dictated and finalized at location R. RIAL MAN
--- NOTE | ~2025-02-28 | XR_ITS ---
Examination: XR chest 2V Clinical History: shortness of breath Comparison: 02/08/2025 Technique: PA and Lateral Findings: Cardiomediastinal silhouette normal size and configuration. Emphysema and interstitial changes. Chronic bibasilar scarring. No acute bony abnormality. IMPRESSION: 1. No acute cardiopulmonary findings. Reviewed, dictated and finalized at location R. ATING ROOM NURSE
[2025-02-28 18:07] VITALS: BP 119/59; PULSE 93; RESP 18; TEMP 36.8; O2SAT 98
[2025-02-28 20:47] VITALS: O2SAT 97
--- NOTE | 2025-02-28 21:10 | ECG_ITS ---
Test Date: 2025-02-28 21:58:47 Measurements Intervals Dawson Rate: 87 P: 52 NC: 134 QRS: 75 QRSD: 85 T: 72 QT: 375 QTc: 453 Interpretive Statements SINUS RHYTHM POSSIBLE RIGHT VENTRICULAR CONDUCTION DELAY [RSR (QR) IN V1/V2] NONSPECIFIC T-WAVE ABNORMALITIES Compared to ECG 02/08/2025 16:19:44 NO SIGNIFICANT CHANGES Electronically Signed On 03-01-2025 08:34:28 RELIEF PILOT by Earl Rivera M.D.
--- NOTE | 2025-02-28 21:12 | ED_ITS ---
HPI - SOB/Dyspnea General Chief Complaint: Shortness of Breath/Dyspnea Stated Complaint: SOB Time Seen by Provider: 02/28/25 21:03 Source: patient Mode of arrival: ambulatory Limitations: no limitations History of Present Illness HPI Narrative: This is a 74-year-old female with history of COPD, cirrhosis, PE presents to the ED for shortness of breath. Patient states for the past week, she has been having a worsening productive cough with shortness of breath. She states that a few weeks ago she was diagnosed with pneumonia few weeks ago and feels that she did not fully recover from that. She is on her baseline oxygen at this point. Denies fevers, chills, chest pain, nausea vomiting, abdominal pain. Related Data Home Medications ?Medication ?Instructions ?Recorded ?Confirmed ?Last Taken ?Type immune glob G 10 gram/100 100 ml subcut WEEKLY 0 03/01/25 02/22/25 History mL(10%)-gly-IgA ave 46 mcg/mL 100 mL injection soln (Gamunex-C) Allergies Allergy/AdvReac Type Severity Reaction Status Date / Time Penicillins Allergy Unknown Swelling Verified 02/26/25 08:13 Sulfa (Sulfonamide Allergy Unknown Rash Verified 02/26/25 08:13 Antibiotics) Review of Systems 2 Review of Systems: Gen.: Denies fevers or chills Eyes: Denies eye pain or visual change ENT: Denies congestion Respiratory: As per HPI CV: Denies chest pain or palpitations GI: Denies abdominal pain nausea, emesis or diarrhea denies burning, urgency, frequency or hematuria Musculoskeletal: Denies back pain or muscle pain Neuro: Denies numbness, tingling, weakness or focal weakness Skin: Denies rash Except as documented, all other systems reviewed and negative [facility] Past Medical History Medical History Chronic nausea Chronic hypoxic respiratory failure, on home oxygen therapy 2 L at rest 4 L with activity Osteopenia Alternating constipation and diarrhea Herpes simplex type 2 infection Family history of aneurysm of blood vessel of brain Overweight Postmenopausal Former smoker Cervical disc disorder with radiculopathy Chronic migraine Iron deficiency Postmenopausal Pre-diabetes Pulmonary nodule Vitamin D deficiency, unspecified Arthritis of wrist, right Bilateral primary osteoarthritis of knee CVID (common variable immunodeficiency) Eczema Uterine cancer Anxiety Depression Hypothyroid GERD (gastroesophageal reflux disease) Ulcer Hiatal hernia Chronic bronchitis HTN (hypertension) Hyperlipidemia Restless leg syndrome Seasonal allergies Chronic obstructive pulmonary disease Chronic respiratory failure with hypoxia Dyslipidemia Essential hypertension Mixed hyperlipidemia (10/28/18) Obstructive sleep apnea Tachycardia Chronic with baseline heart rate 90s to low 100s Surgical History Surgical History History of hysterectomy History of tonsillectomy History of carpal tunnel release Family History Family History Mother Family history of chronic obstructive pulmonary disease Hypertension Chronic obstructive pulmonary disease Sibling Family history of malignant neoplasm Asthma Grandparent Acute myocardial infarction Social History Social History Social History: 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 She smoked at least 1 pack of cigarettes per day from the time she was a teenager until approximately 2008. She denies any significant alcohol or illicit substance use. She owns her own home and her adult son, [id number] live with her. Her adult grandchild just recently moved in. Code status: Full code (patient would not want tracheostomy or feeding tube but is okay with short-term ventilation. Surrogate decision maker: Nani Nolan (sister) Smoking packs per day: 1 Smoking cigarettes per day: 20.0 Years smoked: 40 Smoking pack-years: 40.00 Smoking status: Former smoker Tobacco type: cigarettes Second hand tobacco smoke exposure: Yes Smoking end date: 04/12/08 Alcohol intake: former Substance use: never Substance use type: does not use Do You Feel Safe in your Home?: Yes Lack of Transportation: No Lack of Food: Never True Current Housing: I Have Housing Concerned About Future Housing: No Difficulty Paying Gas/Electric Bills: No Difficulty Paying for Meds: No Currently Unemployed: No Education: High School Diploma/GED Difficulty w/ Childcare or Family Care: No Living arrangements: alone Occupation/Education: occupation 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 No respiratory distress Clear to auscultation bilaterally with no rhonchi wheezing or rales. CARDIOVASCULAR: Regular rate and rhythm without murmurs rubs or gallops. ABDOMINAL: Soft, nontender, nondistended, no rebound or guarding MUSCULOSKELETAl: Moves all extremities. No clubbing, cyanosis or edema. NEURO: Awake and alert. Following commands, speech normal, no focal deficits SKIN:: Warm, dry. No rashes lesions or abrasions PSYCHIATRIC: Normal affect/mood, Course Vital Signs Vital signs: Vital Signs Temperature 98.2 F 02/28/25 18:07 Pulse Rate 93 02/28/25 18:07 Respiratory Rate 18 02/28/25 18:07 Blood Pressure 119/59 L 02/28/25 18:07 Pulse Oximetry 98 02/28/25 18:07 Oxygen Delivery Nasal Cannula 02/28/25 18:07 Oxygen Flow Rate 2 02/28/25 18:07 Temperature 98.2 F 02/28/25 18:07 Pulse Rate 88 03/01/25 00:46 Respiratory Rate 27 H 03/01/25 00:46 Blood Pressure 116/68 03/01/25 00:46 Pulse Oximetry 94 03/01/25 03:03 Oxygen Delivery Nasal Cannula 03/01/25 03:03 Oxygen Flow Rate 4 03/01/25 03:03 MDM - SOB/Dyspnea MDM Narrative Medical decision making narrative: 74-year-old female Presenting for shortness of breath. On initial evaluation patient was in no acute distress afebrile, hemodynamic stable. Differentials include but are not limited to: ACS, CHF Exacerbation, COPD exacerbation, PE, PNA, PTX, bronchitis, viral syndrome Notable exam findings: Heart and lungs clear. Setting mid to high 90s on 2 L nasal cannula. I personally reviewed the patient's lab result. Notable lab findings: CBC and CMP without significant abnormalities. Troponin negative. UA clear not consistent with a UTI. I personally reviewed the patient's images and interpret as follows: Chest x- ray: Mild bibasilar interstitial changes improving from previous (pending final Radiology read) I personally reviewed the patient's EKGs: 02/28/2025 at 9:58 p.m.: Normal sinus rhythm, normal axis, normal intervals, no acute ST or T-wave changes Workup was very reassuring. However, patient was still concerned as whenever she is ambulating she is only able to go 15-20 feet or so before she runs out of breath which is apparently new for her. She is able to increase her oxygen from 2 L to 4 L when exerting herself but notes that this is much earlier than normal. Patient was ambulated and she did desat to 86% on her 4 L nasal cannula. Because of this, patient will require admission for likely COPD exacerbation. She will be given Levaquin and prednisone. Case was discussed with hospitalist who will admit the patient. Medical Records Attestation: I reviewed the patient's medical records. Lab Data Attestation: I reviewed the patient's lab results. 02/28/25 21:07 02/28/25 21:07 Labs: Lab Results 02/28/25 02/28/25 Range/Units 21:07 22:11 WBC 4.6 (4.5-10.0) K/mm3 RBC 3.38 L (4.2-5.4) M/mm3 Hgb 12.1 (12.0-15.0) g/dL Hct 33.4 L (37.0-47.0) % MCV 98.8 (80-100) fl MCH 35.8 H (26-34) pg MCHC 36.2 H (32-36) g/dl RDW 15.3 H (11.5-14.5) % Plt Count 210 (150-375) k/mm3 MPV 9.8 (7.4-10.4) fl Immature Gran % (Auto) 0.4 (0-0.5) % Neut % (Auto) 59.4 (45.5-73.1) % Lymph % (Auto) 23.9 (18.3-44.2) % [place] % (Auto) 10.8 H (2.6-8.5) % Eos % (Auto) 4.6 H (0-4.4) % Baso % (Auto) 0.9 (0.2-1.2) % Lymph # (Auto) 1.10 (0.9-3.2) K/mm3 [place] # (Auto) 0.5 (0.1-0.6) K/mm3 Eos # (Auto) 0.2 (0-0.3) K/mm3 Baso # (Auto) 0.0 (0.0-0.1) K/mm3 Abs Immat Gran (auto) 0.02 (0.00-0.031) K/mm3 Absolute Neuts (auto) 2.7 (1.3-6.7) K/mm3 Absolute Nucleated RBC 0.000 (0.0-0.012) K/mm3 Nucleated RBC % 0.0 (0.0-0.2) % Sodium 137 (137-145) mmol/L Potassium 3.6 (3.4-5.0) mmol/L Chloride 107 (98-107) mmol/L Carbon Dioxide 24 (22-30) mmol/L Anion Gap 6 (4-12) mmol/L BUN 11 D (7-17) mg/dL Creatinine 0.76 (0.7-1.0) mg/dL Estim Creat Clear Calc 42 ml/min Estimated GFR > 60 (59 - ) Glucose 83 (65-110) mg/dL Lactic Acid 0.7 (0.7-2.0) mmol/L Calcium 8.4 (8.4-10.2) mg/dL Total Bilirubin 0.4 (0.2-1.3) mg/dL AST 20 (14-36) U/L ALT 15 (6-35) U/L Alkaline Phosphatase 118 (38-126) U/L Troponin I < 0.012 (0.000-0.034) ng/mL Total Protein 6.5 (6.3-8.2) g/dL Albumin 3.7 (3.5-5.1) g/dL Urine Color Yellow (Yellow) Urine Appearance Clear (Clear) Urine pH 5.0 (5.0-9.0) Ur Specific [facility] 1.027 (1.001-1.035) Urine Protein Trace (Negative) mg/dL Urine Glucose (UA) Negative (Negative) mg/dL Urine Ketones Trace H (Negative) mg/dL Ur Blood (Man) Negative (Negative) Urine Nitrate Negative (Negative) Urine Bilirubin Negative (Negative) Urine Urobilinogen 1.0 (<2.0) mg/dL Leukocyte Esterase Rfl 1+ H (Negative) DAWIT/UL Urine RBC 0-2 (0-2) /hpf Urine WBC 21-50 H (0-3) /hpf Ur Squamous Epith Cells None seen (Few) /hpf Urine Bacteria Trace /hpf Urine Casts 0-2 Discharge Plan Discharge Clinical Impression: Acute exacerbation of chronic obstructive pulmonary disease Patient Disposition: Still a Patient Condition: Stable
[2025-02-28 21:16] LABS: Hematocrit 33.4 % (37.0-47.0); Hemoglobin 12.1 g/dL (12.0-15.0); Immature Granulocyte Percent A 0.4 % (0-0.5); Lymphocytes Absolute Auto 1.10 K/mm3 (0.9-3.2); Mean Corpuscular HGB Conc 36.2 g/dl (32-36); Mean Corpuscular Hemoglobin 35.8 pg (26-34); Mean Corpuscular Volume 98.8 fl (80-100); Nucleated Red Blood Cells Absolute Auto 0.000 K/mm3 (0.0-0.012); Nucleated Red Blood Cells Perc 0.0 % (0.0-0.2); Platelet Count Result 210 k/mm3 (150-375); Red Blood Count 3.38 M/mm3 (4.2-5.4); White Blood Count 4.6 K/mm3 (4.5-10.0)
[2025-02-28 21:29] LABS: Alanine Aminotransferase 15 U/L (6-35); Albumin Level 3.7 g/dL (3.5-5.1); Alkaline Phosphatase 118 U/L (38-126); Anion Gap 6 mmol/L (4-12); Aspartate Amino Transferase 20 U/L (14-36); Bilirubin,Total 0.4 mg/dL (0.2-1.3); Blood Urea Nitrogen 11 mg/dL (7-17); Calcium 8.4 mg/dL (8.4-10.2); Carbon Dioxide 24 mmol/L (22-30); Chloride 107 mmol/L (98-107); Estimated CRCL calculation 42 ml/min; Estimated Glomerular Filt Rate > 60; Glucose 83 mg/dL (65-110); Potassium 3.6 mmol/L (3.4-5.0); Sodium 137 mmol/L (137-145); Total Protein 6.5 g/dL (6.3-8.2)
[2025-02-28 21:40] LABS: Troponin I < 0.012 ng/mL (0.000-0.034)
[2025-02-28 22:24] LABS: Add Urine Microscopic? YES; Appearance Urine Clear (Clear); Glucose Urine UA Negative (Negative); Leukocyte Esterase Ur 1+ LEU/UL (Negative); Nitrate Urine Negative (Negative); Non Pathogenic Casts 0-2; Specific Grav Ur 1.027 (1.001-1.035)
[2025-02-28 22:45] VITALS: BP 108/70; PULSE 88; RESP 24; O2SAT 100
[2025-02-28 23:31] VITALS: BP 104/64; PULSE 89; RESP 18
[2025-02-28 23:46] VITALS: BP 112/77; PULSE 85; RESP 21
[2025-03-01] VITALS (17 sets, daily range): BP systolic 101–125; BP diastolic 57–76; PULSE 76–113; RESP 16–28; TEMP 36.2–36.4; O2SAT 91–100; BMI 25.4
[2025-03-01] MEDS: predniSONE 40 MG, predniSONE 10 MG 50 MG PO (00:21)
--- OUTSIDE RECORDS SUMMARY | 2025-03-01 00:52 | XMS_ITS | Encounter Summary ---
Author Organization [facility] Address [address] [place] [address] Care Team Providers Care Mold Presser Name Role Phone Sonia Ugalde NP Primary Care Provider [phone] Encounter Details Date Type Department Care Team (Late st Contact Info) Description 09/17/2018 Abstract [facility] CONVERSION [address] [place] [address] , Generic Conversion, Social History Tobacco Use Types Packs/Day Years Used Date Smoking Tobacco: Never Assessed Comments Unknown Sex and Gender Information Value Date Recorded Sex Assigned at Not on file Legal Sex Female 5:53 PM DRUM PULLER Gender Identity Not on file Sexual Orientation Not on file documented as of this encounter Plan of Treatment Not on file documented as of this encounter Visit Diagnoses Not on filedocumented in this encounter Care Teams Mold Presser Relationship Specialty Start Date End Date Sonia Ugalde NP [address] [place] [address] PCP - General FAMILY MEDICINE SPORTS MEDICINE 05/12/22 documented as of this encounter
--- OUTSIDE RECORDS SUMMARY | 2025-03-01 00:52 | XMS_ITS | Clinical Summary ---
Author Organization [facility] Address [address] [place] [address] Phone Care Team Providers Care Letter Of Credit Clerk Name Role Phone Sonia Ugalde APRN Primary Care Provider [phone] Allergies Active Allergy Reactions Criticality Noted Date [...] by mouth daily. Active ergocalciferol (VITAMIN D) 97435 UNIT Capsule Vitamin D2 1,250 mcg (50,000 [...] C Virus (HCV) Screening 1950 Mammogram 1952 Varicella Immunization (1 of 2 - 13+ 2-dose series) 1965 Cologuard 1997 Colonoscopy 1997 Colorectal Cancer Screening [...] MEDICAID [place] MEDICARE C HUMANA Care Teams Letter Of Credit Clerk Relationship Specialty Start Date End Date Sonia Ugalde APRN [address] [place] [address] PCP - General Family Medicine 11/11/23
--- OUTSIDE RECORDS SUMMARY | 2025-03-01 00:52 | XMS_ITS | Clinical Summary ---
Author Organization [facility] [employer] Address [address] [facility] [address] Care Team Providers Care Rn Employee Health Name Role Phone Chris Ugaldebecky Judge APRN-CORONER FORENSIC TECHNICIAN Primary Care Provider + Source Comments [facility] [employer],non-owned Affiliates and Associated Physician Practices is amultiple site organization consisting of ambulatory clinics and hospital sitesin [place], [place], [place] and [place]. This disclosure is being madepursuant to the Care Everywhere program and may not contain all information available regarding this patient. Last updated 17.[facility] [employer] Allergies Active Allergy Reactions Criticality Noted Date [...] Pressure Disorder Active ergocalciferol (Drisdol) 1.25 MG (90293 UT) capsuleIndicatio ns:Vitamin D Deficiency Vitamin D2 [...] Major Depressive Disorder Active OxygenIndication s:copd/ sob [place] 2 L/min into the nose continuous Reasons: [...] Encounters Date Type Department Care Team Description 02/19/2025 Refill [facility] - Orthopedic Surgery [address] [place] [id number] Celio Villela MD Refill Request from Last 3 Months Family History Medical [...] Recorded Patient Health Questionnaire-2 Score 0 08/07/2024 [facility] - [...] place to sleep or slept in a residential (including now)? No 04/25/2022 Comments Unknown Sex and Gender Information Value Date Recorded Sex Assigned at Not on file Legal Sex Female 5:02 AM STITCH SEPARATOR Gender Identity Not on file Sexual Orientation [...] Oxygen Concentration 32% 05/08/2022 9 :49 AM STITCH SEPARATOR Weight 69.9 kg (154 lb) 11/02/2022 5:50 AM CDT Height 152.4 cm (5') 11/02/2022 5:50 AM CDT Body Mass Index 30.08 11/02/2022 5:50 AM CDT Plan of Treatment Upcoming Encounters Date Type Department Care Team (Late st Contact Info) Description 08/14/2025 1:15 PM CDT Office Visit [facility] - Orthopedic Surgery [facility] [place] [id number] Bhaskar Mack MD [address] [address] Health Maintenance Due Date Last Done Comments [...] CALENDAR YEAR 2024 COVID-19 VACCINE ( - 2024- season) 2024 02/05/2022, 05/09/2021, 11/28/2020, Additional history [...] this topic Medical Devices Implanted Type Area Transition Assistant Device Identifier Shelf Expiration Date Model / Serial / Lot Screw 6.5mm 95mm Cassidy Lng Bone Sm Bone Implanted:Qty: 1 on 04/27/2022 by Luis Daniel Roca MD at [facility] [employer] [id number] / / Screw 6.5mm 110mm Cassidy Lng Bone Sm Bone Implanted:Qty: 1 on 04/27/2022 by Luis Daniel Roca MD at [facility] [employer] [id number] / / Screw Extfix 190mm 6mm [facility] Ss Spd Pnt Implanted:Qty: 1 on 04/27/2022 by Luis Daniel Roca MD at [facility] [employer] 294.68 / / Head Fem +4mm 03/25 Tpr 36mm Hip Oxnm Implanted:Qty: 1 on 11/02/2022 by Bhaskar Mack MD at [facility] Right: Hip [employer] 06/21/2032 [id number] / / [id number] Shell Actb 52mm Hip 3 Hl Poly R3 Std Implanted:Qty: 1 on 11/02/2022 by Bhaskar Mack MD at [facility] Right: Hip [employer] 07/07/2032 [id number] / / [id number] Screw 6.5mm 25mm Hip Actb Canc Sphrcl Implanted:Qty: 1 on 11/02/2022 by Bhaskar Mack MD at [facility] Right: Hip [employer] 04/15/2032 [id number] / / [id number] Liner Actb R3 20d 52mm 36mm Xlpe Poly Implanted:Qty: 1 on 11/02/2022 by Bhaskar Mack MD at [facility] Right: Hip [employer] 03/09/2031 [id number] / / [id number] Stem Fem 136mm Hip 135d 2 03/25 Std Ofst Implanted:Qty: 1 on 11/02/2022 by Bhaskar Mack MD at [facility] Right: Hip [employer] 02/12/2028 [id number] / / [id number] Explanted Type Area Transition Assistant Device Identifier Shelf Expiration Date Model / Serial / Lot Screw 6.5mm 85mm Cassidy Lng Bone Sm Bone Explanted:Qty: 1 on 04/27/2022 by Luis Daniel Roca MD at [facility] [email or web address] [id number] / / Gd Pin Orth 450mm 3.2mm Cocr Xtd Acc Explanted:Qty: 2 on 04/27/2022 at [facility] [employer] [id number] / / [place] [address] HUMAN MEDICARE ADV HMO & PPO Member Subscriber Plan / Payer (Ef fective 2022-Present) Name:Aydin Jose R Relation to Subscriber:Self Name:Aydin Jose Payer ID:[id number] (NAIC) Type:Medicare-Managed Care Address: [place] [id number] MEDICAID OUT OF [facility] MEDICAID - [place] Member Subscriber Plan / Payer (Ef fective for All Dates) Name:Aydin Jose R Member ID:Not on file Relation to Subscriber:Self Name:Aydin Jose Payer ID:Not on file Group ID:Not on file Type:Medicaid [place] Address: [place] [id number] * Guarantor: REBECA,AYDIN Account Type Relation to Patient Date of Phone Billing Address Personal/Family [phone] [place] MED[place]ID - [place] * Guarantor: REBECAAYDIN Account Type Relation to Patient Date of Phone Billing Address Personal/Family [facility] [place] [address] [place] [facility] [employer] MEDICAID - [place] Advance Directives [...] 5:05 AM 05/12/2022 7:18 PM Care Teams Rn Employee Health Relationship Specialty Start Date End Date Sonia Ugalde APRN-CORONER FORENSIC TECHNICIAN [address] [place] [address] PCP - General Nurse Practitioner Family 04/24/22
--- OUTSIDE RECORDS SUMMARY | 2025-03-01 00:52 | XMS_ITS | Patient Health Record ---
Author Organization [facility] Address [address] [place] [address] Care Team Providers Care Central Melt Specialist Name Role Phone Sonia Miller Primary Care Provider Nathalia Sofia Unavailable [phone] Allergies Allergen (clinical drug ingredient) Drug/Non Drug [...] (10 %) Solution Injection *Pick strength-form from [facility] for eRX* Active predniSONE 50 MG Tablet Oral Active Pregabalin 50 MG Capsule Oral Active Venlafaxine HCl ER 150 MG Capsule Extended Release 24 Hour Oral Active Omeprazole 40 MG Capsule Delayed Release Oral Active ID Now COVID-19 Kit In Vitro *Reorder fro [facility] for eRx and Interaction Alerts* Active HYDROcodone-Acetaminop hen 5-325 MG Tablet Oral Active Potassium Chloride ER 10 MEQ Capsule Extended Release Oral Active Cetirizine HCl 10 MG Tablet Oral Active rOPINIRole HCl 1 MG Tablet Oral Active Ergocalciferol 1.25 MG (24032 UT) Capsule Oral Active Alendronate Sodium 70 MG Tablet Oral Active SUMAtriptan Succinate 50 MG Tablet Oral Active ProAir HFA 108 (90 Base) MCG/ACT Aerosol Solution Inhalation Active Topiramate 25 MG Capsule Sprinkle Oral Active Magnesium Oxide (Elemental) 400 MG Tablet Oral *[facility] for eRx and Interaction Alerts* Active Docusate [...] MCG-50 MCG/DOSE POWDER FOR INHALATION *Reorder from [facility] for eRx and Interaction Alerts* Active EPINEPHrine [...] Female Encounters Encounter Location Date Provider Diagnosis [facility] [address] [address] 05/22/2024 Nathalia Trejo Plan Of Treatment No Information Insurance Providers Payer Name Payer Address Payer Phone Subscriber Number Group Number Insured Name Patient Relationship to Insured Coverage Start Date Coverage End Date [employer] Medicare Replacemen t/Advantag e - Ppo [address] [address] [place] [address] [id number] AYDIN JOSE Self - patient is the insured Medicaid-[place] Medicaid [address] [address] [place] [address] [id number] REBECA AYDIN Self - patient is the insured Medical (General) History Medical History History ICD Code Anxiety Arthritis COPD Depression Chronic respiratory failure Essential HTN GERD Mixed HLD HYpothyroidism KAREN Pneumonia Pre diabetes Tachycardia Ulcer Uterine cancer Vit D deficiency
--- NOTE | 2025-03-01 00:58 | WPCEDHO ---
ED Hand Off Checklist All vitals saved:Y IV Site documented:Y All med administrations documented:Y Triage Note Triage Note pt to ED w/ complaints of SOB for 02/28/25 18:07 the past few days. pt was diagnosed with pneumonia a few days ago. states she's been on antibiotics and steroids w/ no relief. denies any pain. hx of copd wears 2L at all times. Allergies Penicillins Allergy (Unknown, Verified 02/26/25 08:13) Swelling Sulfa (Sulfonamide Antibiotics) Allergy (Unknown, Verified 02/26/25 08:13) Rash Family History (Last Reviewed 02/28/25 @ 21:15 by Gage Franklin DO) Mother Family history of chronic obstructive pulmonary disease Hypertension Chronic obstructive pulmonary disease Sibling Family history of malignant neoplasm Asthma Grandparent Acute myocardial infarction Administered/Completed Medications Discontinued Medications Levofloxacin (Levofloxacin 750 Mg Tablet) 750 mg PO ONCE STA Stop: 03/01/25 00:11 Last Admin: 03/01/25 00:21 Dose: 750 mg Documented By: ROMA Prednisone 40 mg/ Prednisone (10 mg) 50 mg PO ONCE STA Stop: 03/01/25 00:12 Last Admin: 03/01/25 00:21 Dose: 50 mg Documented By: ROMA Interventions/Assessments IV / Saline Lock, Insert Start: 02/28/25 18:05 Freq: Status: Active Protocol: Document 02/28/25 21:04 [facility] (Rec: 02/28/25 21:05 [facility] [id number]) IV Assessment Peripheral Access Right Forearm IV Catheter Access Initiated IV Insertion Date 02/28/25 IV Insertion Time 21:05 Catheter Gauge 18 IV Insertion 1 Attempts Ultrasound Used for No Placement IV Site Assessment WNL IV Care and WNL Maintenance PA: Cardiovascular Assessment Start: 02/28/25 18:05 Freq: Status: Active Protocol: Document 02/28/25 20:47 [facility] (Rec: 02/28/25 20:48 [facility] [id number]) Cardiovascular Assessment Cardiovascular None Symptoms Skin Description Normal Color Heart Sounds Normal Jugular Vein None Distention PA: Respiratory Assessment Start: 02/28/25 18:05 Freq: Status: Active Protocol: Document 02/28/25 20:47 [facility] (Rec: 02/28/25 20:48 [facility] [id number]) Respiratory Assessment Symptoms Shortness of Breath at Rest,Shortness of Breath With Exertion Adult Capillary Normal/Less than 2 Seconds Refill Effort Normal Pattern Regular Depth Normal Chest Expansion Symmetrical Bilateral Throughout Phase Inspiratory & Expiratory Lung Sounds Coarse,Diminished Cough Description None Oxygen Delivery Oxygen Flow Rate 3 Oxygen Delivery Nasal Cannula Pulse Oximetry (90- 97 100) Last Vital Signs Temperature 98.2 F 02/28/25 18:07 Pulse Rate 88 03/01/25 00:46 Respiratory Rate 27 H 03/01/25 00:46 Pulse Oximetry 100 03/01/25 00:46 Blood Pressure 116/68 03/01/25 00:46 Blood Pressure Mean 84 03/01/25 00:46 Oxygen Delivery Nasal Cannula 02/28/25 20:47 Oxygen Flow Rate 3 02/28/25 20:47 Weight 59 kg 02/28/25 18:07 Last Result - Abnormals Only RBC 3.38 M/mm3 (4.2-5.4) L 02/28/25 21:07 Hct 33.4 % (37.0-47.0) L 02/28/25 21:07 MCH 35.8 pg (26-34) H 02/28/25 21:07 MCHC 36.2 g/dl (32-36) H 02/28/25 21:07 RDW 15.3 % (11.5-14.5) H 02/28/25 21:07 Meagher % (Auto) 10.8 % (2.6-8.5) H 02/28/25 21:07 Eos % (Auto) 4.6 % (0-4.4) H 02/28/25 21:07 Urine Ketones Trace mg/dL (Negative) H 02/28/25 22:11 Leukocyte Esterase Rfl 1+ DAWIT/UL (Negative) H 02/28/25 22:11 Urine WBC 21-50 /hpf (0-3) H 02/28/25 22:11 Most Recent Suicide Severity Rating Suicide Severity Rating NO RISK INDICATED 02/28/25 18:07
--- OUTSIDE RECORDS SUMMARY | 2025-03-01 01:57 | XMS_ITS | Clinical Summary ---
Author Organization [facility] Address [address] [place] [address] Phone Care Team Providers Care Therapeutic Specialist Name Role Phone Sonia Ugalde APRN Primary Care Provider [phone] Allergies Active Allergy Reactions Criticality Noted Date [...] by mouth daily. Active ergocalciferol (VITAMIN D) 37218 UNIT Capsule Vitamin D2 1,250 mcg (50,000 [...] MEDICAID [place] MEDICARE C HUMANA Care Teams Therapeutic Specialist Relationship Specialty Start Date End Date Sonia Ugalde APRN [address] [place] [address] PCP - General Family Medicine 11/11/23
--- NOTE | 2025-03-01 04:07 | P.HP_ITS ---
H&P: HPI History of Present Illness Date/Time: 03/01/25 04:07 Chief Complaint: Shortness of breath Narrative: This is a 74-year-old female patient who has a history of COPD with chronic oxygen use. She does see a butcher all round and Nathan. The patient stated that she has been increasingly more short of breath this last week. She has had a more productive cough with some shortness of breath with exertion. The patient stated that she is on 4 L constantly now. She stated that she was diagnosed with pneumonia several weeks ago and she stated she has never fully recovered from that. She denies any fever, chills, nausea, vomiting or diarrhea. Troponin is negative at 0.12. Chest x-ray was taken. As per ED physician remnants of the pneumonia still remain. The patient was started on prednisone and Levaquin. The patient is being admitted to observation status on the date of service of 03/01/2025. Review of Systems Constitutional: Constitutional: Reports as per HPI and Reports no additional constitutional complaints Eyes: Eyes: Reports as per HPI and Reports no additional eye complaints ENT: Reports system reviewed and no additional complaints, except as documented and Reports Normal hearing present Cardiovascular: Cardiovascular: Reports no additional cardiovascular complaints Respiratory: Respiratory: Reports as per HPI and Reports no additional respiratory complaints Gastrointestinal: Gastrointestinal: Reports as per HPI and Reports no additional gastrointestinal complaints Genitourinary: Genitourinary: Reports no additional female genitourinary complaints Musculoskeletal: Musculoskeletal: Reports no additional musculoskeletal complaints Integumentary/Breasts: Skin/Breast: Reports system reviewed and no additional complaints, except as docu Neurologic: Reports system reviewed and no additional complaints, except as documented and Reports Normal hearing present Psychiatric: Psychiatric: Reports no additional psychiatric complaints and Reports as per HPI Hematologic/Lymphatic: Hematologic/Lymphatic: Reports no additional hematologic/lymphatic complaints Allergic/Immunologic: Allergic/Immunologic: Reports no additional allergic/immunologic complaints [facility] Past Medical History Medical History Chronic nausea Chronic hypoxic respiratory failure, on home oxygen therapy 2 L at rest 4 L with activity Osteopenia Alternating constipation and diarrhea Herpes simplex type 2 infection Family history of aneurysm of blood vessel of brain Overweight Postmenopausal Former smoker Cervical disc disorder with radiculopathy Chronic migraine Iron deficiency Postmenopausal Pre-diabetes Pulmonary nodule Vitamin D deficiency, unspecified Arthritis of wrist, right Bilateral primary osteoarthritis of knee CVID (common variable immunodeficiency) Eczema Uterine cancer Anxiety Depression Hypothyroid GERD (gastroesophageal reflux disease) Ulcer Hiatal hernia Chronic bronchitis HTN (hypertension) Hyperlipidemia Restless leg syndrome Seasonal allergies Chronic obstructive pulmonary disease Chronic respiratory failure with hypoxia Dyslipidemia Essential hypertension Mixed hyperlipidemia (10/28/18) Obstructive sleep apnea Tachycardia Chronic with baseline heart rate 90s to low 100s Surgical History Surgical History History of hysterectomy History of tonsillectomy History of carpal tunnel release Family History Family History Mother Family history of chronic obstructive pulmonary disease Hypertension Chronic obstructive pulmonary disease Sibling Family history of malignant neoplasm Asthma Grandparent Acute myocardial infarction Social History Social History (Updated 03/01/25 @ 04:18 by Kristin Cifuentes APRN) Social History: 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 She smoked at least 1 pack of cigarettes per day from the time she was a teenager until approximately 2008. She denies any significant alcohol or illicit substance use. She owns her own home and her adult son, [id number] live with her. Her adult grandchild no longer lives with her. Code status: Full code (patient would not want tracheostomy or feeding tube but is okay with short-term ventilation. Surrogate decision maker: Nani Nolan (sister) Smoking packs per day: 1 Smoking cigarettes per day: 20.0 Years smoked: 40 Smoking pack-years: 40.00 Smoking status: Former smoker Tobacco type: cigarettes Second hand tobacco smoke exposure: Yes Smoking end date: 04/12/08 Alcohol intake: former Substance use: never Substance use type: does not use Do You Feel Safe in your Home?: Yes Lack of Transportation: No Lack of Food: Never True Current Housing: I Have Housing Concerned About Future Housing: No Difficulty Paying Gas/Electric Bills: No Difficulty Paying for Meds: No Currently Unemployed: No Education: High School Diploma/GED Difficulty w/ Childcare or Family Care: No Living arrangements: alone Occupation/Education: occupation 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 Gender identity (if verbalized by the patient): Female Spiritual care concerns: No Agree to blood products: No Meds Home Medications and Allergies Home Medications ?Medication ?Instructions ?Recorded ?Confirmed ?Type immune glob G 10 gram/100 100 ml subcut WEEKLY 0 03/01/25 History mL(10%)-gly-IgA ave 46 mcg/mL injection soln (Gamunex-C) albuterol sulfate 90 mcg/actuation 2 puff inhalation Q ID PRN 04/04/24 03/01/25 Rx aerosol inhaler (Ventolin HFA) shortness of breath or wheezing #8.5 grams cetirizine 10 mg tablet See Rx Instructions .Route 0 05/09/24 03/01/25 Rx .COMPLEX #90 tabs ondansetron 4 mg disintegrating See Rx Instructions .R oute 05/09/24 03/01/25 Rx tablet .COMPLEX #60 tabs albuterol sulfate 90 mcg/actuation See Rx Instructions .Route 05/10/24 03/01/25 Rx aerosol inhaler .COMPLEX #8.5 ea roflumilast 500 mcg tablet See Rx Instructions .Route 05/10/24 03/01/25 Rx .COMPLEX #90 tabs albuterol sulfate 90 mcg/actuation 1 inh inhalation Q4 -6H PRN 06/05/24 03/01/25 Rx breath activated powder inhaler shortness of breath or wheezing 1 (ProAir RespiClick) month #1 ea fluticasone 250 mcg-salmeterol 50 See Rx Instructions .Route 06/13/24 03/01/25 Rx mcg/dose blistr powdr for .COMPLEX #180 ea inhalation lidocaine 5 % topical patch 1 patch topical DAILY #15 ea 07/18/24 03/01/25 Rx lisinopril 10 mg tablet See Rx Instructions .Route 0 09/11/24 03/01/25 Rx .COMPLEX #90 tabs levothyroxine 88 mcg tablet See Rx Instructions .Route 09/18/24 03/01/25 Rx .COMPLEX #90 tabs Spiriva with HandiHaler 18 mcg and 18 mcg inhalation D AILY #30 caps 09/21/24 03/01/25 Rx inhalation capsules (tiotropium bromide) buspirone 15 mg tablet See Rx Instructions .Route 0 10/05/24 03/01/25 Rx .COMPLEX #180 tabs valacyclovir 500 mg tablet 500 mg PO DAILY #30 tabs 03/01/25 Rx ergocalciferol (vitamin D2) 1,250 1,250 mcg PO Q0ORBWH #6 caps 10/31/24 03/01/25 Rx mcg (50,000 unit) capsule ferrous sulfate 325 mg (65 mg See Rx Instructions .Rou te 11/06/24 03/01/25 Rx iron) tablet .COMPLEX #90 tabs ropinirole 1 mg tablet See Rx Instructions .Route 0 11/20/24 03/01/25 Rx .COMPLEX #90 tabs diltiazem HCl 120 mg See Rx Instructions .Route 0 12/29/24 03/01/25 Rx capsule,extended release 24 hr .COMPLEX #90 caps levalbuterol HCl 1.25 mg/3 mL See Rx Instructions .Rou te 02/12/25 03/01/25 Rx solution for nebulization .COMPLEX #810 mL denosumab 60 mg/mL subcutaneous 60 mg subcut [id number] #1 mL 02/13/25 03/01/25 Rx syringe (Prolia) omeprazole 40 mg capsule,delayed 40 mg PO DAILY #90 ca ps 02/19/25 03/01/25 Rx release topiramate 50 mg tablet (Topamax) 50 mg PO BID #180 ta bs 02/19/25 03/01/25 Rx venlafaxine 150 mg 150 mg PO DAILY #90 caps 02/0303/01/25 Rx capsule,extended release 24 hr atorvastatin 40 mg tablet See Rx Instructions .Route 1 04/29/24 03/01/25 Rx .COMPLEX #90 tabs montelukast 10 mg tablet See Rx Instructions .Route 1 04/29/24 03/01/25 Rx .COMPLEX #90 tabs potassium chloride 20 mEq 20 meq PO DAILY #90 tabs 03/01/25 Rx tablet,extended release Allergies Allergy/AdvReac Type Severity Reaction Status Date / Time Penicillins Allergy Unknown Swelling Verified 02/26/25 08:13 Sulfa (Sulfonamide Allergy Unknown Rash Verified 02/26/25 08:13 Antibiotics) Vital Signs Vital Signs - 24 hr 02/28/25 18:07 02/28/25 20:47 02/28/25 22:45 Temperature 98.2 F Pulse Rate 93 88 Respiratory Rate 18 24 H Blood Pressure 119/59 L 108/70 Pulse Oximetry 98 97 100 Oxygen Delivery Nasal Cannula Nasal Cannula Oxygen Flow Rate 2 3 02/28/25 23:31 02/28/25 23:46 03/01/25 00:13 Temperature Pulse Rate 89 85 84 Respiratory Rate 18 21 H 24 H Blood Pressure 104/64 112/77 114/69 Pulse Oximetry 100 Oxygen Delivery Oxygen Flow Rate 03/01/25 00:16 03/01/25 00:31 03/01/25 00:46 Temperature Pulse Rate 82 82 88 Respiratory Rate 25 H 28 H 27 H Blood Pressure 105/76 104/66 116/68 Pulse Oximetry 98 99 100 Oxygen Delivery Oxygen Flow Rate 03/01/25 03:03 Temperature Pulse Rate Respiratory Rate Blood Pressure Pulse Oximetry 94 Oxygen Delivery Nasal Cannula Oxygen Flow Rate 4 Exam Const: General: cooperative, healthy appearing, comfortable, no acute distress, well developed, awake, Physically active, average body habitus and well nourished Nutritional Appearance: average body habitus and well nourished Orientation/consciousness: oriented to person, oriented to place, oriented to time and patient oriented x3 Limitations: no limitations HENMT: Head: normal to inspection, No palpable skull fracture present, normocephalic, atraumatic and abrasion Ears: hearing grossly impaired Eyes: General: appearance normal, both eyes and all related structures Alignment and Position: alignment normal Periorbital: periorbital findings normal Eyelids: eyelids normal Conjunctivae: conjunctivae normal Sclera: sclerae normal Neck: Neck: normal visual inspection and full ROM Chest: Chest palpation & inspection: normal inspection of the chest Resp: Effort & Inspection: normal respiratory effort Auscultation: clear to auscultation bilaterally and diminished lung sounds diffuse Cardio: Palpation: normal PMI Rate: regular rate Rhythm: regular rhythm Heart sounds: S1 normal heart sound present and S2 normal heart sound present Peripheral pulses: Peripheral pulses 2+ throughout GI: Inspection: normal to inspection Percussion: Yes normal to percussion Auscultation: normal bowel sounds Rectal Exam: deferred Skin: General skin exam: normal color Lesions: no lesions Rashes: no rashes Trauma: no lacerations or abrasions Wounds: no wounds Hair: normal Nails: normal Neuro: General: oriented to person, oriented to place, oriented to time and patient oriented x3 Cranial nerves: Yes Equal, round and reactive pupils present and Yes Normal hearing present Cognition (Neuro): normal cognition Speech: normal speech Gait exam (Neuro): Normal gait present Motor exam (neuro): 5/5 motor strength present throughout Sensory Exam: normal sensation Extrem: General: normal to inspection Right upper extremity: normal to inspection and shoulder/upper arm Left upper extremity: normal to inspection and shoulder/upper arm Right lower extremity: normal to inspection Left lower extremity: normal to inspection Psych: Appearance: grossly normal Mental Status: mental status grossly normal Speech and movement: Normal speech and movement present Affect: normal affect Attitude: cooperative Thought process: Normal thought process present Thought content: Yes Normal thought content present Insight: Good insight present (Psych) Judgement: Good judgement present (Psych) H&P: Results Labs Labs: Short CBC 02/28/25 Range/Units 21:07 WBC 4.6 (4.5-10.0) K/mm3 Hgb 12.1 (12.0-15.0) g/dL Hct 33.4 L (37.0-47.0) % Plt Count 210 (150-375) k/mm3 BMP 02/28/25 21:07 Sodium 137 Potassium 3.6 Chloride 107 Carbon Dioxide 24 BUN 11 D Creatinine 0.76 Glucose 83 Calcium 8.4 Cardiac Enzymes 02/28/25 Range/Units 21:07 Troponin I < 0.012 (0.000-0.034) ng/mL Liver Function 02/28/25 Range/Units 21:07 Total Bilirubin 0.4 (0.2-1.3) mg/dL AST 20 (14-36) U/L ALT 15 (6-35) U/L Alkaline Phosphatase 118 (38-126) U/L Albumin 3.7 (3.5-5.1) g/dL Urine 02/28/25 Range/Units 22:11 Urine Color Yellow (Yellow) Urine Appearance Clear (Clear) Urine pH 5.0 (5.0-9.0) Ur Specific Sharon 1.027 (1.001-1.035) Urine Protein Trace (Negative) mg/dL Urine Glucose (UA) Negative (Negative) mg/dL ECG Interpretation: SINUS RHYTHM POSSIBLE RIGHT VENTRICULAR CONDUCTION DELAY [RSR (QR) IN V1/V2] MINIMAL ST DEPRESSION [0.025+ mV ST DEPRESSION] Compared to ECG 02/08/2025 16:1 9:44 ST (T wave) deviation now present Imaging Chest x-ray: Radiologist's impression: Impressions Chest X-Ray 03/01/25 06:07 IMPRESSION: 1. No acute cardiopulmonary findings. Venous Doppler Study 03/01/25 17:01 IMPRESSION: 1. No deep venous thrombosis. Chest CTA 03/01/25 17:05 IMPRESSION: 1. No evidence of pulmonary emboli. Significant emphysematous changes of lungs. Assessment and Plan Assessment and plan (1) Acute exacerbation of chronic obstructive pulmonary disease: Code(s): J44.1 - Chronic obstructive pulmonary disease with (acute) exacerbation Status: Acute Assessment and Plan: -pulmonology consultation would greatly be appreciated for further evaluation, recommendation, and or treatment. -the patient was seen by pulmonology group here at [facility]. She was last seen on 01/23/2025.( ESTABLISHED: Dayaanra Malcolm is 74 years old, COPD, O2 use, on Gammunex for immune deficiency/ CVID, sees allergy blade boner, Dr Medina. She needs to continue to see Dr Medina. She is having unintentional wt loss; cirrhosis symptoms, no drinking. She has been seen by Gi, testing is in progress. She lost 4 lb in the last 4 days. Sat 97% on 2 L/min at rest in the office today. She uses 4-5 L at home with exertion and takes it off at home when she is at rest. She has oximeters all over the place at home. She has a sister in [place] telling her to move to [place], near [place] where she lives so she can get healthcare. Her son is making life difficult for her, smoking pot in the house, and she is not able to get him out. She had an OP against him, his is now breaking all the conditions. He yells and says really disrespectful things to her. She is coughing with daily production of milky beige sputum, a teaspoon with each episode of coughing which happens all day long, estimates 1/4 cup over a typical day. gagging, and he is smoking around her O2 concentrator. Explosion hazard. ) -patient stated that she was treated for pneumonia a few weeks ago and still continues to cough up thick yellow sputum. I did start her on Levaquin as she does have a history of CVID (common variable immunodeficiency) -continue with O2 at 4 L at this time. She may need to be further evaluated for increase in O2 levels. Her blood gas was within normal limits with the oxygen on at 4 L per nasal cannula. -continue with Solu-Medrol IV. -DuoNebs. -continue with Daliresp -continue with Singulair (2) Chronic hypoxic respiratory failure, on home oxygen therapy: Code(s): J96.11 - Chronic respiratory failure with hypoxia; Z99.81 - Dependence on supplemental oxygen Status: Acute Assessment and Plan: -the patient is currently on oxygen at 4 L per nasal cannula. Her ABGs were within normal limits with the settings. (3) Hypothyroidism, unspecified: Code(s): E03.9 - Hypothyroidism, unspecified Status: Acute Assessment and Plan: -continue with levothyroxine. (4) Essential hypertension: Code(s): I10 - Essential (primary) hypertension Status: Chronic Assessment and Plan: -continue with lisinopril and monitor renal function. Patient's current blood pressure is 109/57. Please continue blood pressure medication if blood pressure allows. She is also on Cardizem. (5) Dyslipidemia: Code(s): E78.5 - Hyperlipidemia, unspecified Status: Chronic Assessment and Plan: -continue with atorvastatin. Monitor liver function. (6) Depression: Qualifiers: Depression Type: unspecified Qualified Code(s): F32.9 - Major depressive disorder, single episode, unspecified Code(s): F32.9 - Major depressive disorder, single episode, unspecified Status: Chronic Assessment and Plan: -continue with BuSpirone and venlafaxine (7) Anxiety: Code(s): F41.9 - Anxiety disorder, unspecified Status: Acute Assessment and Plan: -continue with venlafaxine Quality VTE Prophylaxis VTE prophylaxis: mechanical ordered
[2025-03-01 05:18] LABS: Hematocrit 34.3 % (37.0-47.0); Hemoglobin 12.3 g/dL (12.0-15.0); Mean Corpuscular HGB Conc 35.9 g/dl (32-36); Mean Corpuscular Hemoglobin 36.2 pg (26-34); Mean Corpuscular Volume 100.9 fl (80-100); Platelet Count Result 182 k/mm3 (150-375); Red Blood Count 3.40 M/mm3 (4.2-5.4); White Blood Count 2.9 K/mm3 (4.5-10.0)
[2025-03-01 05:32] LABS: Anion Gap 4 mmol/L (4-12); Blood Urea Nitrogen 12 mg/dL (7-17); Calcium 8.7 mg/dL (8.4-10.2); Carbon Dioxide 27 mmol/L (22-30); Chloride 108 mmol/L (98-107); Estimated CRCL calculation 41 ml/min; Estimated Glomerular Filt Rate > 60; Glucose 146 mg/dL (65-110); Potassium 4.1 mmol/L (3.4-5.0); Sodium 139 mmol/L (137-145)
[2025-03-01 05:41] LABS: Troponin I < 0.012 ng/mL (0.000-0.034)
[2025-03-01] MEDS: LEVOTHYROXINE SODIUM 88 MCG TABLET BY MOUTH (05:52)
[2025-03-01] MEDS: IPRATROPIUM 0.5 MG/ALBUTEROL SULFATE 2.5 MG (BASE) AMPUL.NEB 3 ML INHALATION ×3 (08:09→20:50)
[2025-03-01] MEDS: FLUTICASONE/SALMETEROL 115-21 MCG INHALER 1 PUFF 2 PUFF INHALATION (08:10)
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
[2025-03-01] MEDS: POTASSIUM CHLORIDE 20 MEQ ER TABLET PO (09:41)
[2025-03-01] MEDS: PANTOPRAZOLE 40 MG TABLET PO ×2 (09:42→21:19)
[2025-03-01] MEDS: dilTIAZem HCL CD 120 MG CAP.24HR BY MOUTH (09:42)
[2025-03-01] MEDS: ROFLUMILAST 500 MCG TABLET PO (09:43)
[2025-03-01 12:10] LABS: CRP < 0.5 mg/dL (<1.0)
[2025-03-01 12:12] LABS: NT Pro B Type Natriuretic Pept 95 pg/mL (19.9-100)
[2025-03-01 12:19] LABS: Procalcitonin 0.1 ng/mL
--- NOTE | 2025-03-01 12:21 | P.CONPL_ITS ---
Assessment and Plan Assessment and plan (1) Acute exacerbation of chronic obstructive pulmonary disease: Code(s): J44.1 - Chronic obstructive pulmonary disease with (acute) exacerbation Status: Acute Assessment and Plan: GOLD grade 2 group E COPD Patient with 82 pack year tobacco use, PFTs 2017 with FEV1 1.99 L, 55% predicted. Decreased DLCO, no bronchodilator response, ratio 37%. CT scan of the chest 08/27/2024 with severe apical predominant centrilobular emphysema. Chronic hypoxemic respiratory failure requiring no oxygen at rest, 4-5 L with activity and 3 L with sleep. ABG 03/19/2024 with pH of 7.40/39/86 on 2 L nasal cannula. 03/01/2025: Patient presents with worsening dyspnea on exertion, hypoxemic respiratory failure with no change in her phlegm volume or color. Plan: I will treat the patient for COPD exacerbation and would decrease her Solu-Medrol to 20 mg IV q.6. I will place her on DuoNebs q.6 hours, I will discontinue her Advair, Spiriva. I will continue montelukast 10 q.day and roflumilast 500 mg p.o. q.day. I will look for other etiologies regarding her symptoms and have ordered an echocardiogram. Her D-dimer is positive and I will order CT angiogram of the chest, I have ordered lower extremity Dopplers.. If her CT angiogram of the chest shows any focal infiltrates consistent with a bacterial pneumonia will add ceftriaxone to her Levaquin. I will check respiratory pathogen panel, urine for Legionella antigen, urine for pneumococcal antigen and serum mycoplasma IgM. Goal saturation 90-94%, adjust oxygen accordingly. I will check an ABG to exclude hypercarbic respiratory failure. I will order alpha 1 anti trypsin genotype and level for the morning. Will follow with you. (2) Obstructive sleep apnea: Code(s): G47.33 - Obstructive sleep apnea (adult) (pediatric) Status: Chronic Assessment and Plan: 12/06/20? ? Split night sleep study showed mild sleep apnea, AHI 10.1, titrated to BiPAP 20/16 w/2L O2 bleed-in. Patient could not tolerate BiPAP and is not been treated for 2 to 3 years. Currently she is wearing 3 L oxygen at night 03/01/25: will continue 3 L at night. History of Present Illness History of Present Illness Consult date: 03/01/25 Chief complaint: COPD exacerbation Narrative: 03/01/2025: This is a new pulmonary consult for COPD. In 74-year-old with a history of COPD with hypoxemic respiratory failure requiring no oxygen at rest, 4-5 L with activity and 3 with sleep, cirrhosis, CVID, KAREN untreated for 2 years on 3 L nasal cannula at night. Three weeks ago the patient states she had shortness of breath, phlegm and went to the emergency room on 02/08/2025 and was diagnosed with pneumonia and was treated with levofloxacin x7 days and prednisone x5 days. Patient took these medicines and recovered to 95% back to her normal. On 02/25/2025 the patient was normal and at baseline she can walk half a block and has to stop because of dyspnea on exertion. She has a chronic cough and wheezes every other day. She coughs up phlegm 6 times a day that is usually milky. On 02/26 2025 the patient developed dyspnea on exertion. She had no fever chills, rigors, change in her phlegm volume or color, wheezing, nasal congestion, chest pain or leg swelling. On 02/27/2025 she had worsening oxygenation and her saturations were 86% on room air. 02/28/2025 patient presented to the emergency room with shortness of breath. Her blood pressure is 119/59, heart rate 93, respirations 18, on 2 L nasal cannula saturations were 98%. White blood cell count was 4.6, eosinophils 4.6%. Creatinine 0.76. Chest x-ray with no effusions or infiltrates. Her lungs were clear to auscultation. She was treated for COPD exacerbation with Solu-Medrol, Levaquin, bronchodilators. 03/01/2025: Currently the patient tells me she is breathing normally at rest. She still has the same dyspnea on exertion and fatigue. On room air her saturations are 94%. Her white blood cell count is 2.9, creatinine 0.77, CRP less than 0.5, BNP 95, procalcitonin 0.1. D-dimer is positive at 0.61. CT angiogram of the chest has been ordered. DATA: 08/27/2024: CT Scan of the Chest without Contrast: Clinical Indication: Lymph node follow-up, shortness of breath Technique: Contiguous sections were acquired throughout the chest without intravenous contrast. Dose reduction technique was used on this scan by utilizing automated exposure control and iterative reconstruction technique. The dose-length product (DLP) was 110.73 mGy-cm. COMPARISON: 08/02/2023 Findings: Stable minimally prominent left paratracheal lymph node. No other lymphadenopathy identified. Coronary artery calcifications are present.. There is no evidence of pleural or pericardial effusion. Stable 4 mm nodule at the anteromedial left upper lobe (axial image 61). Moderate emphysema present. Images through the upper abdomen reveal no abnormalities. Impression: Stable minimally prominent left paratracheal lymph node. Stable 4 mm left upper lobe nodule. Moderate emphysema. 06/28/2024: Home O2 assessment, rest room air saturation 87%. Rest nasal cannula 1 L saturation 87%. Rest nasal cannula 2 L saturation 92%. Exercise nasal cannula 2 L saturation 85%. Exercise nasal cannula 3 L saturation 86%. Exercise nasal cannula 4 L saturation 87%. Exercise 5 L nasal cannula saturation 92%. Patient requires 2 L with rest and 5 with activity. 06/29/2024: Overnight oximetry on 2 L nasal cannula. Recording duration 8 hours and 11 minutes. Basal saturation 93.5%. High saturation 98%. Low saturation 79%. Time with saturation less than or equal to 88% was 22.41 minutes, oxygen desaturation index 2. Chest CTA 05/05/23 @ [facility] - no PE. R hilar node measuring 1.8cm. Trace pericardial effusion. Complete collapse of RML with central bronchial obstruction. Cannot exclude superimposed infection. Mild peripheral interstitial fibrotic change. Severe centrilobular emphysema. 5mm LLL nodule. PET-CT and/or follow-up Chest CT in 3-6 months. LDCT 09/18/22 - severe emphysema. There is mild atelectasis bilaterally. There is a stable 4 mm nodule in right upper lobe. PET-CT 09/25/21 - 9 mm part solid nodule in left lung upper lobe without increased activity with marked interval improvement, consistent with infection. Severe emphysema. 08/26/2021 -?chest CTA [place]?-? 3 cm irregularly marginated left upper lobe soft tissue mass centrally.? Recommend bronchoscopy and biopsy to exclude malignancy. No PE. ? Emphysematous? changes.? Linear densities throughout the left upper lobe which could relate to lymphangitic spread of neoplasm.? There are smaller densities peripherally which could relate to satellite pulmonary nodules.? The appearance of this process is most worrisome for malignancy although other etiologies could include unusual appearance of infection.? Small mediastinal lymph nodes 10/20/20?chest CTA?[facility]?; 2.1cm left lower lobe nodule, suspicious for bronchogenic carcinoma with possible right hilar metastases. Consider percutaneous biopsy using CT guidance or PET/CT examination. 10/25/2017 PFT - severe COPD. FEV 1 .99Liters, 55%. Markedly decreased DLCO. No acute bronchodilator response. FEV1/FVC 37%. NIOX-Normal. 03/17/20 Chest CTA - No evidence of pulmonary embolism. Prominent emphysematous changes. Stable 5 mm left lower lobe pulmonary nodule since 01/25/2019. 12/22/[address] - Resolved left lower lobe nodule, consistent with resolving pneumonia. Severe emphysema. 12/06/20? ? Split night sleep study showed mild sleep apnea, AHI 10.1, titrated to BiPAP 20/16 w/2L O2 bleed-in. Jan 2020- split night sleep study; 04/2018 echo - grade I diastolic dysfunction, EF 60%, normal RVSP. Pulmonary Results: Review of Systems 2 Constitutional: Constitutional: Reports no additional constitutional complaints Eyes: Eyes: Reports no additional eye complaints ENT: Reports system reviewed and no additional complaints, except as documented Cardiovascular: Cardiovascular: Reports no additional cardiovascular complaints Respiratory: Respiratory: Reports no additional respiratory complaints Gastrointestinal: Gastrointestinal: Reports no additional gastrointestinal complaints Musculoskeletal: Musculoskeletal: Reports no additional musculoskeletal complaints Neurologic: Reports system reviewed and no additional complaints, except as documented Psychiatric: Psychiatric: Reports no additional psychiatric complaints Endocrine: Endocrine: Reports no additional endocrine complaints Hematologic/Lymphatic: Hematologic/Lymphatic: Reports no additional hematologic/lymphatic complaints Allergic/Immunologic: Allergic/Immunologic: Reports no additional allergic/immunologic complaints PMFSH Past Medical History Medical History Chronic nausea Chronic hypoxic respiratory failure, on home oxygen therapy 2 L at rest 4 L with activity Osteopenia Alternating constipation and diarrhea Herpes simplex type 2 infection Family history of aneurysm of blood vessel of brain Overweight Postmenopausal Former smoker Cervical disc disorder with radiculopathy Chronic migraine Iron deficiency Postmenopausal Pre-diabetes Pulmonary nodule Vitamin D deficiency, unspecified Arthritis of wrist, right Bilateral primary osteoarthritis of knee CVID (common variable immunodeficiency) Eczema Uterine cancer Anxiety Depression Hypothyroid GERD (gastroesophageal reflux disease) Ulcer Hiatal hernia Chronic bronchitis HTN (hypertension) Hyperlipidemia Restless leg syndrome Seasonal allergies Chronic obstructive pulmonary disease Chronic respiratory failure with hypoxia Dyslipidemia Essential hypertension Mixed hyperlipidemia (10/28/18) Obstructive sleep apnea Tachycardia Chronic with baseline heart rate 90s to low 100s Surgical History Surgical History History of hysterectomy History of tonsillectomy History of carpal tunnel release Family History Family History Mother Family history of chronic obstructive pulmonary disease Hypertension Chronic obstructive pulmonary disease Sibling Family history of malignant neoplasm Asthma Grandparent Acute myocardial infarction Social History Social History (Updated 03/01/25 @ 04:18 by Kristin Cifuentes APRN) Social History: 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 She smoked at least 1 pack of cigarettes per day from the time she was a teenager until approximately 2008. She denies any significant alcohol or illicit substance use. She owns her own home and her adult son, [id number] live with her. Her adult grandchild no longer lives with her. Code status: Full code (patient would not want tracheostomy or feeding tube but is okay with short-term ventilation. Surrogate decision maker: Nani Francisco (sister) Smoking packs per day: 1 Smoking cigarettes per day: 20.0 Years smoked: 40 Smoking pack-years: 40.00 Smoking status: Former smoker Tobacco type: cigarettes Second hand tobacco smoke exposure: Yes Smoking end date: 04/12/08 Alcohol intake: former Substance use: never Substance use type: does not use Do You Feel Safe in your Home?: Yes Lack of Transportation: No Lack of Food: Never True Current Housing: I Have Housing Concerned About Future Housing: No Difficulty Paying Gas/Electric Bills: No Difficulty Paying for Meds: No Currently Unemployed: No Education: High School Diploma/GED Difficulty w/ Childcare or Family Care: No Living arrangements: alone Occupation/Education: occupation 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 Gender identity (if verbalized by the patient): Female Spiritual care concerns: No Agree to blood products: No Meds Home Medications and Allergies Home Medications ?Medication ?Instructions ?Recorded ?Confirmed ?Type immune glob G 10 gram/100 100 ml subcut WEEKLY 0 03/01/25 History mL(10%)-gly-IgA ave 46 mcg/mL injection soln (Gamunex-C) albuterol sulfate 90 mcg/actuation 2 puff inhalation Q ID PRN 04/04/24 03/01/25 Rx aerosol inhaler (Ventolin HFA) shortness of breath or wheezing #8.5 grams cetirizine 10 mg tablet See Rx Instructions .Route 0 05/09/24 03/01/25 Rx .COMPLEX #90 tabs ondansetron 4 mg disintegrating See Rx Instructions .R oute 05/09/24 03/01/25 Rx tablet .COMPLEX #60 tabs albuterol sulfate 90 mcg/actuation See Rx Instructions .Route 05/10/24 03/01/25 Rx aerosol inhaler .COMPLEX #8.5 ea roflumilast 500 mcg tablet See Rx Instructions .Route 05/10/24 03/01/25 Rx .COMPLEX #90 tabs albuterol sulfate 90 mcg/actuation 1 inh inhalation Q4 -6H PRN 06/05/24 03/01/25 Rx breath activated powder inhaler shortness of breath or wheezing 1 (ProAir RespiClick) month #1 ea fluticasone 250 mcg-salmeterol 50 See Rx Instructions .Route 06/13/24 03/01/25 Rx mcg/dose blistr powdr for .COMPLEX #180 ea inhalation lidocaine 5 % topical patch 1 patch topical DAILY #15 ea 07/18/24 03/01/25 Rx lisinopril 10 mg tablet See Rx Instructions .Route 0 09/11/24 03/01/25 Rx .COMPLEX #90 tabs levothyroxine 88 mcg tablet See Rx Instructions .Route 09/18/24 03/01/25 Rx .COMPLEX #90 tabs Spiriva with HandiHaler 18 mcg and 18 mcg inhalation D AILY #30 caps 09/21/24 03/01/25 Rx inhalation capsules (tiotropium bromide) buspirone 15 mg tablet See Rx Instructions .Route 0 10/05/24 03/01/25 Rx .COMPLEX #180 tabs valacyclovir 500 mg tablet 500 mg PO DAILY #30 tabs 03/01/25 Rx ergocalciferol (vitamin D2) 1,250 1,250 mcg PO [id number] #6 caps 10/31/24 03/01/25 Rx mcg (50,000 unit) capsule ferrous sulfate 325 mg (65 mg See Rx Instructions .Rou te 11/06/24 03/01/25 Rx iron) tablet .COMPLEX #90 tabs ropinirole 1 mg tablet See Rx Instructions .Route 0 11/20/24 03/01/25 Rx .COMPLEX #90 tabs diltiazem HCl 120 mg See Rx Instructions .Route 0 12/29/24 03/01/25 Rx capsule,extended release 24 hr .COMPLEX #90 caps levalbuterol HCl 1.25 mg/3 mL See Rx Instructions .Kareem te 02/12/25 03/01/25 Rx solution for nebulization .COMPLEX #810 mL denosumab 60 mg/mL subcutaneous 60 mg subcut [id number] #1 mL 02/13/25 03/01/25 Rx syringe (Prolia) omeprazole 40 mg capsule,delayed 40 mg PO DAILY #90 ca ps 02/19/25 03/01/25 Rx release topiramate 50 mg tablet (Topamax) 50 mg PO BID #180 ta bs 02/19/25 03/01/25 Rx venlafaxine 150 mg 150 mg PO DAILY #90 caps 02/0303/01/25 Rx capsule,extended release 24 hr atorvastatin 40 mg tablet See Rx Instructions .Route 1 04/29/24 03/01/25 Rx .COMPLEX #90 tabs montelukast 10 mg tablet See Rx Instructions .Route 1 04/29/24 03/01/25 Rx .COMPLEX #90 tabs potassium chloride 20 mEq 20 meq PO DAILY #90 tabs 03/01/25 Rx tablet,extended release Allergies Allergy/AdvReac Type Severity Reaction Status Date / Time Penicillins Allergy Unknown Swelling Verified 02/26/25 08:13 Sulfa (Sulfonamide Allergy Unknown Rash Verified 02/26/25 08:13 Antibiotics) Vital Signs Vital Signs - 24 hr 02/28/25 18:07 02/28/25 20:47 02/28/25 22:45 Temperature 36.8 C Pulse Rate 93 88 Respiratory Rate 18 24 H Blood Pressure 119/59 L 108/70 Pulse Oximetry 98 97 100 Oxygen Delivery Nasal Cannula Nasal Cannula Oxygen Flow Rate 2 3 02/28/25 23:31 02/28/25 23:46 03/01/25 00:13 Temperature Pulse Rate 89 85 84 Respiratory Rate 18 21 H 24 H Blood Pressure 104/64 112/77 114/69 Pulse Oximetry 100 Oxygen Delivery Oxygen Flow Rate 03/01/25 00:16 03/01/25 00:31 03/01/25 00:46 Temperature Pulse Rate 82 82 88 Respiratory Rate 25 H 28 H 27 H Blood Pressure 105/76 104/66 116/68 Pulse Oximetry 98 99 100 Oxygen Delivery Oxygen Flow Rate 03/01/25 03:00 03/01/25 03:03 03/01/25 06:00 Temperature 36.4 C L 36.3 C L Pulse Rate 85 76 Respiratory Rate 16 16 Blood Pressure 109/57 L 101/64 Pulse Oximetry 98 94 98 Oxygen Delivery Nasal Cannula Oxygen Flow Rate 4 03/01/25 08:00 03/01/25 08:11 03/01/25 08:15 Temperature Pulse Rate 83 Respiratory Rate 18 Blood Pressure Pulse Oximetry 99 99 Oxygen Delivery Nasal Cannula Nasal Cannula Oxygen Flow Rate 4 4 03/01/25 08:19 Temperature Pulse Rate 84 Respiratory Rate 18 Blood Pressure Pulse Oximetry Oxygen Delivery Oxygen Flow Rate Exam 2 Const: General: cooperative, healthy appearing and comfortable O rientation/consciousness: oriented to person, oriented to place and oriented to time HENMT: Head: normal to inspection Ears: hearing grossly normal bilaterally Eyes: General: appearance normal, both eyes and all related structures Neck: Neck: normal visual inspection Chest: Chest palpation & inspection: normal inspection of the chest Resp: Effort & Inspection: normal respiratory effort and able to speak in complete sentences Auscultation: no crackles, no rales, no rhonchi, no wheezes and diminished lung sounds Other: Decreased breath sounds bilaterally no wheezes. Cardio: Jugular venous distension: no JVD GI: Inspection: normal to inspection GI Palp: No abdominal tenderness Skin: General skin exam: normal color Neuro: General: oriented to person, oriented to place and oriented to time Extrem: General: normal to inspection Other: Trace edema Psych: Appearance: grossly normal Results Laboratory Findings 03/01/25 05:08 03/01/25 05:08 ABG, PT/INR, D-dimer: PT/INR, D-dimer D-Dimer 0.61 ug/mL (<0.48) H 03/01/25 11:29 Abnormal lab findings: Abnormal Labs 02/28/25 02/28/25 03/01/25 21:07 22:11 05:08 WBC 2.9 L RBC 3.38 L 3.40 L Hct 33.4 L 34.3 L MCV 100.9 H MCH 35.8 H 36.2 H MCHC 36.2 H RDW 15.3 H 15.5 H [place] % (Auto) 10.8 H Eos % (Auto) 4.6 H D-Dimer Chloride 108 H Glucose 146 H Urine Ketones Trace H Leukocyte Esterase Rfl 1+ H Urine WBC 21-50 H 03/01/25 11:29 WBC RBC Hct MCV MCH MCHC RDW [place] % (Auto) Eos % (Auto) D-Dimer 0.61 H Chloride Glucose Urine Ketones Leukocyte Esterase Rfl Urine WBC Diagnostic Findings Additional studies: ITS Impressions Chest X-Ray 03/01/25 06:07 IMPRESSION: 1. No acute cardiopulmonary findings.
--- NOTE | 2025-03-01 12:30 | ECHO_ITS ---
Patient Info Name: Dayanara Malcolm Age: 74 years : 1950 Gender: Female Ht: 60 in Wt: 130 lbs BSA: 1.59 m2 HR: 96 bpm BP: 101 / 64 mmHg Technical Quality: Fair Exam Date: 03/01/2025 2:14 PM Patient Status: I Admit Date: 03/01/2025 Exam Type: CA echo doppler color flow Complete two-dimensional, color flow and Doppler transthoracic echocardiogram is performed. Staff Referring Physician: Camilo Avitia Mailing Machine Operator: Remedios Christie Attending Provider: Rodney Campos Summary 1. Complete two-dimensional, color flow and Doppler transthoracic echocardiogram is performed. 2. Left ventricular chamber dimension is normal. 3. Left ventricular systolic function is hyperdynamic, estimated at >70. 4. The left ventricular diastolic function is grade I diastolic dysfunction. 5. E/e' 14 is mildly elevated. 6. The mitral valve has a moderately calcified annulus. 7. Normal inferior vena cava with <50% collapse upon inspiration consistent with elevated right atrial pressure, 10 mmHg. Left Ventricle E/e' 14 is mildly elevated. Left ventricular chamber dimension is normal. Left ventricular systolic function is hyperdynamic, estimated at >70. The left ventricular diastolic function is grade I diastolic dysfunction. Right Ventricle Right ventricular chamber dimension is normal. Right ventricular systolic function is normal and with normal TAPSE 1.9 cm. Left Atria Left atrial chamber dimension is normal. Right Atria Right atrial chamber dimension is normal. Aortic Valve The aortic valve is not well visualized. Cannot determine number of aortic valve leaflets. There is no aortic valve stenosis. There is no aortic valve regurgitation. Pulmonic Valve There is no pulmonic regurgitation. Mitral Valve The mitral valve has a moderately calcified annulus. There is no mitral valve stenosis. There is no mitral valve regurgitation. Tricuspid Valve There is no tricuspid valve regurgitation. Pericardium/Pleural There is no pericardial effusion. Inferior Vena Cava Normal inferior vena cava with <50% collapse upon inspiration consistent with elevated right atrial pressure, 10 mmHg. Aorta The aortic root size at the sinus of Valsalva is normal. Left Ventricular Outflow Tract Name Value Normal LVOT 2D LVOT Diameter 1.6 cm LVOT Doppler LVOT Peak Velocity 135 cm/s LVOT Peak Gradient 7 mmHg LVOT Mean Gradient 4 mmHg LVOT VTI 28 cm LVOT Stroke Volume 60 ml LVOT CO 5.7 l/min LVOT CI 3.6 l/min/m2 Pulmonic Valve Name Value Normal RVOT Doppler RVOT Peak Velocity 128 cm/s RVOT Peak Gradient 7 mmHg Mitral Valve Name Value Normal MV Diastolic Function MV E Peak Velocity 97 cm/s MV A Peak Velocity 173 cm/s MV E/A 0.6 MV Decel Time (PW) 176 ms MV Annular TDI MV E/e' (Septal) 11.5 MV E/e' (Lateral) 18.5 MV E/e' (Average) 15.0 Tricuspid Valve Name Value Normal Estimated PAP/RSVP RA Pressure 10 mmHg <=5 Aortic Valve Name Value Normal AV Doppler AV Peak Velocity 163 cm/s AV Peak Gradient 11 mmHg AV Area (Cont Eq Tulio) 1.8 cm2 AV DI (Tulio) 0.83 AV Regurgitation 2D LVOT Area 2.1 cm2 Ventricles Name Value Normal LV Dimensions 2D/MM IVS Diastolic Thickness (2D) 0.7 cm 0.6-1.0 LVID Diastole (2D) 4.9 cm 3.8-5.2 LVIW Diastolic Thickness (2D) 0.6 cm 0.6-0.9 LVID Systole (2D) 3.1 cm 2.2-3.5 LVOT Diameter 1.6 cm LV Mass (2D Cubed) 99.74 g 67.00-162.00 LV Mass Index (2D Cubed) 63 g/m2 43-95 Relative Wall Thickness (2D) 0.25 <=0.42 LV Fractional Shortening/Ejection Fraction 2D/MM LV Fractional Shortening (2D) 36 % 27-45 LV EF (2D Teichholz) 66 % LV Diastolic Volume (4C MOD) 50 ml LV EF (4C MOD) 70 % LV Diastolic Volume (2C MOD) 59 ml LV EF (2C MOD) 72 % LV Diastolic Volume (BP MOD) 56 ml 46-106 LV Diastolic Volume Index (BP MOD) 35 ml/m2 29-61 LV Systolic Volume (BP MOD) 16 ml 14-42 LV Systolic Volume Index (BP MOD) 10 ml/m2 8-24 LV EF (BP MOD) 71 % 54-74 LV Diastolic Length (4C) 6.7 cm LV Systolic Length (4C) 5.4 cm LV Stroke Volume (4C MOD) 35 ml Atria Name Value Normal LA Dimensions LA Volume (4C A-L) 18 ml LA Volume (BP A-L) 25 ml RA Dimensions RA Systolic Major [place] Length (4C) 3.9 cm 2.2-2.8 RA Area (4C) 10.3 cm2 <=18.0 Report Signatures
[2025-03-01 13:26] LABS: Alveolar/Arterial O2 Gradient 43.9 mmHg; Fractional Inspired Oxygen 21 %; HCO3 ABG 21.1 mEq/l (22.0-26.0); Oxygen Content ABG 17.1 %vol (16.0-22.0); Oxygen Saturation ABG 92.6 % (95.0-100.0); PCO2 ABG 35.0 mmHg (35.0-45.0); PO2 ABG 63.9 mmHg (80.0-100.0); PO2 FiO2 Ratio Arterial Blood 3.04 %
[2025-03-01 13:33] LABS: Site Drawn LEFT BRACHIAL
[2025-03-01] MEDS: ATORVASTATIN 40 MG TABLET BY MOUTH (21:18)
[2025-03-01] MEDS: FERROUS SULFATE 325 MG TABLET BY MOUTH (21:18)
[2025-03-01] MEDS: LORATADINE 10 MG TABLET PO (21:19)
[2025-03-01] MEDS: TOPIRAMATE 25 MG TABLET 50 MG PO (21:19)
[2025-03-01] MEDS: VENLAFAXINE HCL XR 75 MG CAP.ER.24H 150 MG PO (21:20)
[2025-03-01] MEDS: MONTELUKAST SODIUM 10 MG TABLET BY MOUTH (21:26)
[2025-03-02] VITALS (17 sets, daily range): BP systolic 98–116; BP diastolic 49–68; PULSE 85–104; RESP 17–26; TEMP 36.1–36.6; O2SAT 82–99
[2025-03-02] MEDS: IPRATROPIUM 0.5 MG/ALBUTEROL SULFATE 2.5 MG (BASE) AMPUL.NEB 3 ML INHALATION ×4 (01:59→21:25)
[2025-03-02] MEDS: LEVOTHYROXINE SODIUM 88 MCG TABLET BY MOUTH (05:53)
[2025-03-02 06:12] LABS: Hematocrit 31.3 % (37.0-47.0); Hemoglobin 11.5 g/dL (12.0-15.0); Mean Corpuscular HGB Conc 36.7 g/dl (32-36); Mean Corpuscular Hemoglobin 36.4 pg (26-34); Mean Corpuscular Volume 99.1 fl (80-100); Platelet Count Result 192 k/mm3 (150-375); Red Blood Count 3.16 M/mm3 (4.2-5.4); White Blood Count 7.7 K/mm3 (4.5-10.0)
[2025-03-02 06:36] LABS: Anion Gap 8 mmol/L (4-12); Blood Urea Nitrogen 14 mg/dL (7-17); Calcium 8.5 mg/dL (8.4-10.2); Carbon Dioxide 23 mmol/L (22-30); Chloride 107 mmol/L (98-107); Estimated CRCL calculation 62 ml/min; Estimated Glomerular Filt Rate > 60; Glucose 200 mg/dL (65-110); Potassium 3.2 mmol/L (3.4-5.0); Sodium 138 mmol/L (137-145)
[2025-03-02] MEDS: PANTOPRAZOLE 40 MG TABLET PO ×2 (08:45→20:36)
[2025-03-02] MEDS: POTASSIUM CHLORIDE 20 MEQ ER TABLET PO (08:45)
[2025-03-02] MEDS: dilTIAZem HCL CD 120 MG CAP.24HR BY MOUTH (08:45)
[2025-03-02] MEDS: TOPIRAMATE 25 MG TABLET 50 MG PO ×2 (08:45→20:37)
[2025-03-02] MEDS: ROFLUMILAST 500 MCG TABLET PO (08:45)
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
--- NOTE | 2025-03-02 10:33 | PM.PNPUL ---
Progress Note: A&P Assessment and Plan (1) Acute exacerbation of chronic obstructive pulmonary disease: Code(s): J44.1 - Chronic obstructive pulmonary disease with (acute) exacerbation Status: Acute Assessment and Plan: GOLD grade 2 group E COPD Patient with 82 pack year tobacco use, PFTs 2018 with FEV1 1.99 L, 55% predicted. Decreased DLCO, no bronchodilator response, ratio 37%. CT scan of the chest From 1st report in our system on 01/02/2009 and most recent on 08/27/2024 and 03/01/25 with severe apical predominant centrilobular emphysema. Chronic hypoxemic respiratory failure requiring no oxygen at rest, 4-5 L with activity and 3 L with sleep. ABG 03/19/2024 with pH of 7.40/39/86 on 2 L nasal cannula. 03/01/2025: Patient presents with worsening dyspnea on exertion, hypoxemic respiratory failure with no change in her phlegm volume or color. Plan: I will treat the patient for COPD exacerbation and would decrease her Solu-Medrol to 20 mg IV q.6. I will place her on DuoNebs q.6 hours, I will discontinue her Advair, Spiriva. I will continue montelukast 10 q.day and roflumilast 500 mg p.o. q.day. I will look for other etiologies regarding her symptoms and have ordered an echocardiogram. Her D-dimer is positive and I will order CT angiogram of the chest, I have ordered lower extremity Dopplers.. If her CT angiogram of the chest shows any focal infiltrates consistent with a bacterial pneumonia will add ceftriaxone to her Levaquin. I will check respiratory pathogen panel, urine for Legionella antigen, urine for pneumococcal antigen and serum mycoplasma IgM. Goal saturation 90-94%, adjust oxygen accordingly. I will check an ABG to exclude hypercarbic respiratory failure. I will order alpha 1 anti trypsin genotype and level for the morning. Later in the day patient had an ABG on room air with pH 7.40/35/64. CT angiogram of the chest showed no PE, severe apical predominant centrilobular emphysema with no concerning nodules, masses or focal infiltrates. Lower extremity Dopplers were negative. Echocardiogram showed LVEF greater than 70%, grade 1 diastolic dysfunction, normal RV size and function. Normal left atrial size. Normal right atrial size. No tricuspid regurg so no PASP calculated. 03/02/25: Today the patient tells me she has improved. States she has 50% back to her normal. She has no rest shortness of breath. She has dyspnea on exertion when walking to the bathroom that is the same as yesterday. Her cough is at her baseline with no phlegm or hemoptysis. When I enter the room she was on room air with saturations 95%. She is afebrile. White blood cell count 7.7, creatinine 0.59. patient had hypotension this morning with a lactic acid of 3.1 and was started on levofloxacin and ceftriaxone. Plan: patient is slowly improving. patient has no wheezes and I will change her Solu-Medrol to prednisone 40 mg p.o. q.day, day 2 of steroids. Continue DuoNebs q.6 hours. Continue Daliresp 500 mg q.day, montelukast 10 q.day, Claritin 10 you day. respiratory pathogen panel, urine for Legionella antigen, urine for pneumococcal antigen and serum mycoplasma IgM. CT scan of the chest shows no focal infiltrate with procalcitonin yesterday 0.1. She never had infectious complaints for a pneumonia. Patient with hypotension and lactic acidosis this morning and started on Levaquin and ceftriaxone. Would consider other non pulmonary sources of infection. I will perform home O2 assessment today in case the patient is discharged over the weekend. Discussed with Chanel Falk. Will follow with you. (2) Obstructive sleep apnea: Code(s): G47.33 - Obstructive sleep apnea (adult) (pediatric) Status: Chronic Assessment and Plan: 12/06/20? ? Split night sleep study showed mild sleep apnea, AHI 10.1, titrated to BiPAP 20/16 w/2L O2 bleed-in. Patient could not tolerate BiPAP and is not been treated for 2 to 3 years. Currently she is wearing 3 L oxygen at night 03/01/25: Plan: will continue 3 L at night. 03/02/25: Patient wore 3 L nasal cannula last night with no issues. Plan: I will perform an overnight oximetry on 3 L nasal cannula tonight. Subjective Date/time seen: 03/02/25 10:33 Interval history: 03/01/2025: This is a new pulmonary consult for COPD. In 74-year-old with a history of COPD with hypoxemic respiratory failure requiring no oxygen at rest, 4-5 L with activity and 3 with sleep, cirrhosis, CVID, KAREN untreated for 2 years on 3 L nasal cannula at night. Three weeks ago the patient states she had shortness of breath, phlegm and went to the emergency room on 02/08/2025 and was diagnosed with pneumonia and was treated with levofloxacin x7 days and prednisone x5 days. Patient took these medicines and recovered to 95% back to her normal. On 02/25/2025 the patient was normal and at baseline she can walk half a block and has to stop because of dyspnea on exertion. She has a chronic cough and wheezes every other day. She coughs up phlegm 6 times a day that is usually milky. On 02/26 2025 the patient developed dyspnea on exertion. She had no fever chills, rigors, change in her phlegm volume or color, wheezing, nasal congestion, chest pain or leg swelling. On 02/27/2025 she had worsening oxygenation and her saturations were 86% on room air. 02/28/2025 patient presented to the emergency room with shortness of breath. Her blood pressure is 119/59, heart rate 93, respirations 18, on 2 L nasal cannula saturations were 98%. White blood cell count was 4.6, eosinophils 4.6%. Creatinine 0.76. Chest x-ray with no effusions or infiltrates. Her lungs were clear to auscultation. She was treated for COPD exacerbation with Solu-Medrol, Levaquin, bronchodilators. 03/01/2025: Currently the patient tells me she is breathing normally at rest. She still has the same dyspnea on exertion and fatigue. On room air her saturations are 94%. Her white blood cell count is 2.9, creatinine 0.77, CRP less than 0.5, BNP 95, procalcitonin 0.1. D-dimer is positive at 0.61. CT angiogram of the chest has been ordered. Later in the day patient had an ABG on room air with pH 7.40/35/64. CT angiogram of the chest showed no PE, severe apical predominant centrilobular emphysema with no concerning nodules, masses or focal infiltrates. Lower extremity Dopplers were negative. Echocardiogram showed LVEF greater than 70%, grade 1 diastolic dysfunction, normal RV size and function. Normal left atrial size. Normal right atrial size. No tricuspid regurg so no PASP calculated. 03/02/25: Today the patient tells me she has improved. States she has 50% back to her normal. She has no rest shortness of breath. She has dyspnea on exertion when walking to the bathroom that is the same as yesterday. Her cough is at her baseline with no phlegm or hemoptysis. When I enter the room she was on room air with saturations 95%. She is afebrile. White blood cell count 7.7, creatinine 0.59. patient had hypotension this morning with a lactic acid of 3.1 and was started on levofloxacin and ceftriaxone. DATA: 08/27/2024: CT Scan of the Chest without Contrast: Clinical Indication: Lymph node follow-up, shortness of breath Technique: Contiguous sections were acquired throughout the chest without intravenous contrast. Dose reduction technique was used on this scan by utilizing automated exposure control and iterative reconstruction technique. The dose-length product (DLP) was 110.73 mGy-cm. COMPARISON: 08/02/2023 Findings: Stable minimally prominent left paratracheal lymph node. No other lymphadenopathy identified. Coronary artery calcifications are present.. There is no evidence of pleural or pericardial effusion. Stable 4 mm nodule at the anteromedial left upper lobe (axial image 61). Moderate emphysema present. Images through the upper abdomen reveal no abnormalities. Impression: Stable minimally prominent left paratracheal lymph node. Stable 4 mm left upper lobe nodule. Moderate emphysema. 06/28/2024: Home O2 assessment, rest room air saturation 87%. Rest nasal cannula 1 L saturation 87%. Rest nasal cannula 2 L saturation 92%. Exercise nasal cannula 2 L saturation 85%. Exercise nasal cannula 3 L saturation 86%. Exercise nasal cannula 4 L saturation 87%. Exercise 5 L nasal cannula saturation 92%. Patient requires 2 L with rest and 5 with activity. 06/29/2024: Overnight oximetry on 2 L nasal cannula. Recording duration 8 hours and 11 minutes. Basal saturation 93.5%. High saturation 98%. Low saturation 79%. Time with saturation less than or equal to 88% was 22.41 minutes, oxygen desaturation index 2. Chest CTA 05/05/23 @ [facility] - no PE. R hilar node measuring 1.8cm. Trace pericardial effusion. Complete collapse of RML with central bronchial obstruction. Cannot exclude superimposed infection. Mild peripheral interstitial fibrotic change. Severe centrilobular emphysema. 5mm LLL nodule. PET-CT and/or follow-up Chest CT in 3-6 months. LDCT 09/18/22 - severe emphysema. There is mild atelectasis bilaterally. There is a stable 4 mm nodule in right upper lobe. PET-CT 09/25/21 - 9 mm part solid nodule in left lung upper lobe without increased activity with marked interval improvement, consistent with infection. Severe emphysema. 08/26/2021 -?chest CTA [place]?-? 3 cm irregularly marginated left upper lobe soft tissue mass centrally.? Recommend bronchoscopy and biopsy to exclude malignancy. No PE. ? Emphysematous? changes.? Linear densities throughout the left upper lobe which could relate to lymphangitic spread of neoplasm.? There are smaller densities peripherally which could relate to satellite pulmonary nodules.? The appearance of this process is most worrisome for malignancy although other etiologies could include unusual appearance of infection.? Small mediastinal lymph nodes 10/20/20?chest CTA?[place]?; 2.1cm left lower lobe nodule, suspicious for bronchogenic carcinoma with possible right hilar metastases. Consider percutaneous biopsy using CT guidance or PET/CT examination. 10/25/2017 PFT - severe COPD. FEV 1 .99Liters, 55%. Markedly decreased DLCO. No acute bronchodilator response. FEV1/FVC 37%. NIOX-Normal. 03/17/20 Chest CTA - No evidence of pulmonary embolism. Prominent emphysematous changes. Stable 5 mm left lower lobe pulmonary nodule since 01/25/2019. 12/22/[address] - Resolved left lower lobe nodule, consistent with resolving pneumonia. Severe emphysema. 12/06/20? ? Split night sleep study showed mild sleep apnea, AHI 10.1, titrated to BiPAP 20/16 w/2L O2 bleed-in. Jan 2020- split night sleep study; 04/2018 echo - grade I diastolic dysfunction, EF 60%, normal RVSP. Review of Systems Constitutional: Constitutional: Reports no additional constitutional complaints Eyes: Eyes: Reports no additional eye complaints ENT: Reports system reviewed and no additional complaints, except as documented Cardiovascular: Cardiovascular: Reports no additional cardiovascular complaints Respiratory: Respiratory: Reports no additional respiratory complaints Gastrointestinal: Gastrointestinal: Reports no additional gastrointestinal complaints Musculoskeletal: Musculoskeletal: Reports no additional musculoskeletal complaints Neurologic: Reports system reviewed and no additional complaints, except as documented Psychiatric: Psychiatric: Reports no additional psychiatric complaints Endocrine: Endocrine: Reports no additional endocrine complaints Hematologic/Lymphatic: Hematologic/Lymphatic: Reports no additional hematologic/lymphatic complaints Allergic/Immunologic: Allergic/Immunologic: Reports no additional allergic/immunologic complaints Exam Const: General: cooperative, healthy appearing and comfortable Orientation/consciousness: oriented to person, oriented to place and oriented to time HENMT: Head: normal to inspection Ears: hearing grossly normal bilaterally Eyes: General: appearance normal, both eyes and all related structures Neck: Neck: normal visual inspection Chest: Chest palpation & inspection: normal inspection of the chest Resp: Effort & Inspection: normal respiratory effort and able to speak in complete sentences Auscultation: no crackles, no rales, no rhonchi, no wheezes and diminished lung sounds Other: Decreased breath sounds bilaterally no wheezes. Cardio: Jugular venous distension: no JVD GI: Inspection: normal to inspection Skin: General skin exam: normal color Neuro: General: oriented to person, oriented to place and oriented to time Extrem: General: normal to inspection Other: Trace edema Psych: Appearance: grossly normal Objective Data Vital Signs Vital Signs: Vital Signs - 24 hr 03/01/25 13:55 03/01/25 14:38 03/01/25 20:51 Temperature 36.2 C L Pulse Rate 105 H 103 H Respiratory Rate 17 18 Blood Pressure 115/58 L Pulse Oximetry 91 94 Oxygen Delivery Nasal Cannula Oxygen Flow Rate 3 03/01/25 20:51 03/01/25 20:57 03/01/25 21:18 Temperature Pulse Rate 110 H 113 H Respiratory Rate 18 18 Blood Pressure Pulse Oximetry 93 Oxygen Delivery Nasal Cannula Oxygen Flow Rate 3 03/01/25 21:23 03/02/25 02:02 03/02/25 05:12 Temperature 36.3 C L 36.2 C L Pulse Rate 112 H 85 93 Respiratory Rate 20 18 20 Blood Pressure 125/67 98/49 L Pulse Oximetry 93 99 Oxygen Delivery Oxygen Flow Rate 03/02/25 08:51 03/02/25 09:13 03/02/25 09:13 Temperature Pulse Rate 100 100 Respiratory Rate 18 Blood Pressure 110/58 L Pulse Oximetry 96 95 Oxygen Delivery Room Air Oxygen Flow Rate 03/02/25 09:21 Temperature Pulse Rate 104 H Respiratory Rate 18 Blood Pressure Pulse Oximetry Oxygen Delivery Oxygen Flow Rate Intake/Output Intake/Output: Intake & Output 02/27/25 02/28/25 03/01/25 03/02/25 23:59 23:59 23:59 23:59 Intake Total 1270 480 Output Total 300 Balance 970 480 Meds/Results Medications: Active Medications Generic Name Dose Route Start Last Admin Trade Name Freq PRN Reason Stop Dose Admin Albuterol/Ipratropium 3 ml 03/01/25 08:00 03/02/25 09:12 Ipratropium 0.5 Mg/Albuterol Sulfate 2.5 Mg (Base) Ampul.Neb 3 Ml INHALATION 3 ml Q6HRT LOVELY Administration Atorvastatin Calcium 40 mg 03/01/25 21:00 03/01/25 21:18 Atorvastatin 40 Mg Tablet BY MOUTH 40 mg HS LOVELY Administration Buspirone HCl 10 mg/ Buspirone 15 mg 03/01/25 23:15 03/02/25 08:45 HCl 5 mg PO 15 mg BID LOVELY Administration Diltiazem HCl 120 mg 03/01/25 09:00 03/02/25 08:45 Diltiazem Hcl Cd 120 Mg Cap.24hr BY MOUTH 120 mg DAILY LOVELY Administration Ergocalciferol 1,250 mcg 03/07/25 09:00 Ergocalciferol (Vitamin D2) 1,250 Mcg (50,000 Units) Capsule PO [id number] LOVELY Ferrous Sulfate 325 mg 03/01/25 21:00 03/01/25 21:18 Ferrous Sulfate 325 Mg Tablet BY MOUTH 325 mg HS LOVELY Administration Levofloxacin/Dextrose 750 mg in 150 mls @ 100 mls/hr 03/03/25 09:00 Levaquin 750 Mg/D5w 150 Ml IVPB Q48H LOVELY Ceftriaxone Sodium 1 gm/ 50 mls @ 100 mls/hr 03/02/25 09:00 Sodium Chloride IVPB Q24H LOVELY Levothyroxine Sodium 88 mcg 03/01/25 06:30 03/02/25 05:53 Levothyroxine Sodium 88 Mcg Tablet BY MOUTH 88 mcg DAILY@0630 LOVELY Administration Lidocaine 1 patch 03/01/25 17:17 Lidocaine 5% Patch TOPICAL DAILY PRN PAINFUL AREA Lisinopril 10 mg 03/01/25 21:00 03/01/25 21:18 Lisinopril 10 Mg Tablet BY MOUTH 10 mg On Hold: 03/02/25 09:15 HS LOVELY Administration Loratadine 10 mg 03/01/25 21:00 03/01/25 21:19 Loratadine 10 Mg Tablet PO 10 mg HS LOVELY Administration Methylprednisolone Sodium Succinate 20 mg 03/01/25 18:00 03/02/25 05:53 Methylprednisolone Sod Succ 125 Mg Vial IV PUSH 20 mg Q6HR LOVELY Administration Montelukast Sodium 10 mg 03/01/25 21:00 03/01/25 21:26 Montelukast Sodium 10 Mg Tablet BY MOUTH 10 mg HS LOVELY Administration Pantoprazole Sodium 40 mg 03/01/25 09:00 03/02/25 08:45 Pantoprazole 40 Mg Tablet PO 40 mg Q12HR LOVELY Administration Perflutren Lipid Microsphere 0 ml 03/01/25 12:30 Perflutren Lipid Microspheres 1.5 Ml Vial Diluted To 10 Ml Total Volume IV PUSH 03/04/25 12:30 ONCE PRN adequate visualization Protocol Potassium Chloride 20 meq 03/01/25 09:00 03/02/25 08:45 Potassium Chloride 20 Meq Er Tablet PO 20 meq DAILY LOVELY Administration Roflumilast 500 mcg 03/01/25 09:00 03/02/25 08:45 Roflumilast 500 Mcg Tablet PO 500 mcg DAILY LOVELY Administration Ropinirole HCl 1 mg 03/01/25 21:00 03/01/25 21:19 Ropinirole Hcl 1 Mg Tablet BY MOUTH 1 mg QHS LOVELY Administration Topiramate 50 mg 03/01/25 21:00 03/02/25 08:45 Topiramate 25 Mg Tablet PO 50 mg Q12HR LOVELY Administration Valacyclovir HCl 500 mg 03/01/25 09:00 03/02/25 08:45 Valacyclovir Hcl 500 Mg Tablet PO 500 mg DAILY LOVELY Administration Venlafaxine HCl 150 mg 03/01/25 21:00 03/01/25 21:20 Venlafaxine Hcl Xr 75 Mg Cap.Er.24h PO 150 mg HS LOVELY Administration Radiology Results: ITS Impressions Chest X-Ray 03/01/25 06:07 IMPRESSION: 1. No acute cardiopulmonary findings. Venous Doppler Study 03/01/25 17:01 IMPRESSION: 1. No deep venous thrombosis. Chest CTA 03/01/25 17:05 IMPRESSION: 1. No evidence of pulmonary emboli. Significant emphysematous changes of lungs. Labs Labs: Laboratory Results - last 24 hr 03/01/25 03/01/25 03/02/25 11:29 13:22 06:00 WBC 7.7 RBC 3.16 L Hgb 11.5 L Hct 31.3 L MCV 99.1 MCH 36.4 H MCHC 36.7 H RDW 15.1 H Plt Count 192 MPV 10.0 D-Dimer 0.61 H Puncture Site Left brachial ABG pH 7.398 ABG pCO2 35.0 ABG pO2 63.9 L ABG PO2/FiO2 Ratio 3.04 ABG HCO3 21.1 L ABG O2 Saturation 92.6 L ABG O2 Content 17.1 ABG Base Excess -3.1 A-a Gradient 43.9 Oxyhemoglobin 92.1 Total Hemoglobin 13.2 O2 Delivery Device Room air O2 Liters/Min Not Reportable FiO2 21 Sodium 138 Potassium 3.2 L Chloride 107 Carbon Dioxide 23 Anion Gap 8 BUN 14 Creatinine 0.59 L Estim Creat Clear Calc 62 Estimated GFR > 60 Glucose 200 H Lactic Acid 3.0 H Calcium 8.5 C-Reactive Protein < 0.5 NT-Pro-B Natriuret Pep 95 Procalcitonin 0.1 03/02/25 08:26 WBC RBC Hgb Hct MCV MCH MCHC RDW Plt Count MPV D-Dimer Puncture Site ABG pH ABG pCO2 ABG pO2 ABG PO2/FiO2 Ratio ABG HCO3 ABG O2 Saturation ABG O2 Content ABG Base Excess A-a Gradient Oxyhemoglobin Total Hemoglobin O2 Delivery Device O2 Liters/Min FiO2 Sodium Potassium Chloride Carbon Dioxide Anion Gap BUN Creatinine Estim Creat Clear Calc Estimated GFR Glucose Lactic Acid 3.1 H Calcium C-Reactive Protein NT-Pro-B Natriuret Pep Procalcitonin
[2025-03-02] MEDS: POTASSIUM CHLORIDE 20 MEQ ER TABLET 40 MEQ PO (11:10)
[2025-03-02] MEDS: cefTRIAXone 1 GM in SODIUM CHLORIDE 0.9% IV 50 ML 100 ML IVPB (11:10)
[2025-03-02] MEDS: SODIUM CHLORIDE 0.9% IV 1,000 ML 999 ML IV CONT (11:52)
--- NOTE | 2025-03-02 14:57 | HOMEO2EVAL ---
Evaluation was performed at [facility] Home Oxygen Evaluation RC: Home Oxygen (O2) Evaluation Start: 03/02/25 09:31 Freq: ONCE Status: Active Protocol: RPE Activity Type Activity Date Activity User E-sign Co-sign Detail Recorded Client Recorded Date Recorded By Document 03/02/25 14:00 [email or web address] 03/02/25 14:57 ISSA Document 03/02/25 14:05 [email or web address] [email or web address] 03/02/25 14:57 ISSA Document 03/02/25 14:07 [email or web address] [email or web address] 03/02/25 14:57 ISSA Document 03/02/25 14:08 [email or web address] [email or web address] 03/02/25 14:57 ISSA Document 03/02/25 14:09 [email or web address] [email or web address] 03/02/25 14:57 ISSA Document 03/02/25 14:15 [email or web address] [email or web address] 03/02/25 14:57 ISSA 03/02/25 03/02/25 03/02/25 14:00 14:05 14:07 Home O2 Evaluation [Oxygen] -Test Phase Resting Exercise Exercise -Oxygen Delivery Room Air Room Air Nasal Cannula -Oxygen Flow Rate (L/min) 2 [Pulse Oximetry] -Pulse Oximetry (90-100 %) 95 82 L 86 L [Comments] -Home Oxygen Evaluation Comments [Charges] -Evaluation Charges O2 Evaluation by Pulmonary 03/02/25 03/02/25 03/02/25 14:08 14:09 14:15 Home O2 Evaluation [Oxygen] -Test Phase Exercise Exercise Resting -Oxygen Delivery Nasal Cannula Nasal Cannula Room Air -Oxygen Flow Rate (L/min) 3 5 [Pulse Oximetry] -Pulse Oximetry (90-100 %) 86 L 93 95 [Comments] -Home Oxygen Evaluation Comments PT REQUIRES 5 LITERS HOME o2 WITH ACTIVITY ONLY. ROOM AIR AT REST [Charges] -Evaluation Charges
--- NOTE | 2025-03-02 14:57 | PCRCNOTE ---
HOME O2 EVAL DONE, PT REQUIRES 5 LITERS O2 WITH ACTIVITY, ROOM AIR AT REST. NO CHANGE FROM CURRENT HOME O2 SETTINGS. PT HAS [employer] FOR O2 DME, SHE HAS PORTABLE O2 IN ROOM FOR D/C.
[2025-03-02] MEDS: SODIUM CHLORIDE 0.9% IV 500 ML IV CONT (19:24)
[2025-03-02] MEDS: FERROUS SULFATE 325 MG TABLET BY MOUTH (20:35)
[2025-03-02] MEDS: ATORVASTATIN 40 MG TABLET BY MOUTH (20:36)
[2025-03-02] MEDS: LORATADINE 10 MG TABLET PO (20:37)
[2025-03-02] MEDS: MONTELUKAST SODIUM 10 MG TABLET BY MOUTH (20:37)
[2025-03-02] MEDS: VENLAFAXINE HCL XR 75 MG CAP.ER.24H 150 MG PO (20:38)
[2025-03-02] MEDS: DOXYCYCLINE IV 100 MG in SODIUM CHLORIDE 0.9% IV 100 ML IVPB (20:38)
[2025-03-02] MEDS: CEFEPIME 2 GM in SODIUM CHLORIDE 0.9% IV 50 ML 100 ML IVPB (21:43)
[2025-03-02 22:09] LABS: MRSA (PCR) NOT DETECTED (NOT DETECTE)
[2025-03-02] MEDS: VANCOMYCIN 1,750 MG/NS 500 ML 1,750 MG/500 ML BAG 250 MG IVPB (23:04)
[2025-03-03] VITALS (13 sets, daily range): BP systolic 109–122; BP diastolic 60–63; PULSE 90–102; RESP 18–20; TEMP 36.4–36.8; O2SAT 96–100
--- NOTE | 2025-03-03 00:11 | PC.NURSE ---
Lactic acid results reported to FABIENNE Cifuentes, this nurse given order to repeat Lactic acid lab draw in the morning.
[2025-03-03] MEDS: LEVOTHYROXINE SODIUM 88 MCG TABLET BY MOUTH (05:53)
[2025-03-03] MEDS: CEFEPIME 2 GM in SODIUM CHLORIDE 0.9% IV 50 ML 100 ML IVPB ×3 (05:53→22:57)
[2025-03-03 06:05] LABS: Hematocrit 29.2 % (37.0-47.0); Hemoglobin 10.9 g/dL (12.0-15.0); Mean Corpuscular HGB Conc 37.3 g/dl (32-36); Mean Corpuscular Hemoglobin 40.1 pg (26-34); Mean Corpuscular Volume 107.4 fl (80-100); Platelet Count Result 203 k/mm3 (150-375); Red Blood Count 2.72 M/mm3 (4.2-5.4); White Blood Count 8.6 K/mm3 (4.5-10.0)
[2025-03-03 06:33] LABS: Anion Gap 4 mmol/L (4-12); Blood Urea Nitrogen 16 mg/dL (7-17); Calcium 8.1 mg/dL (8.4-10.2); Carbon Dioxide 23 mmol/L (22-30); Chloride 112 mmol/L (98-107); Estimated CRCL calculation 55 ml/min; Estimated Glomerular Filt Rate > 60; Glucose 93 mg/dL (65-110); Potassium 3.9 mmol/L (3.4-5.0); Sodium 139 mmol/L (137-145)
[2025-03-03 07:05] LABS: Thyroid Stimulating Hormone 0.837 uIU/mL (0.465-4.680)
[2025-03-03 07:27] LABS: CRP < 0.5 mg/dL (<1.0)
[2025-03-03 07:31] LABS: NT Pro B Type Natriuretic Pept 1190 pg/mL (19.9-100)
[2025-03-03] MEDS: IPRATROPIUM 0.5 MG/ALBUTEROL SULFATE 2.5 MG (BASE) AMPUL.NEB 3 ML INHALATION ×3 (08:43→21:11)
[2025-03-03] MEDS: TOPIRAMATE 25 MG TABLET 50 MG PO ×2 (09:06→20:59)
[2025-03-03] MEDS: POTASSIUM CHLORIDE 20 MEQ ER TABLET PO (09:07)
[2025-03-03] MEDS: levoFLOXacin 750 MG/D5W 150 ML 750 MG/150 ML BAG 100 MG IVPB (09:07)
[2025-03-03] MEDS: PANTOPRAZOLE 40 MG TABLET PO ×2 (09:07→20:59)
[2025-03-03] MEDS: ROFLUMILAST 500 MCG TABLET PO (09:10)
--- NOTE | 2025-03-03 09:10 | PM.PNPUL ---
Progress Note: A&P Assessment and Plan (1) Acute exacerbation of chronic obstructive pulmonary disease: Code(s): J44.1 - Chronic obstructive pulmonary disease with (acute) exacerbation Status: Acute Assessment and Plan: GOLD grade 2 group E COPD Patient with 82 pack year tobacco use, PFTs 2018 with FEV1 1.99 L, 55% predicted. Decreased DLCO, no bronchodilator response, ratio 37%. CT scan of the chest From 1st report in our system on 01/02/2009 and most recent on 08/27/2024 and 03/01/25 with severe apical predominant centrilobular emphysema. Chronic hypoxemic respiratory failure requiring no oxygen at rest, 4-5 L with activity and 3 L with sleep. ABG 03/19/2024 with pH of 7.40/39/86 on 2 L nasal cannula. 03/01/2025: Patient presents with worsening dyspnea on exertion, hypoxemic respiratory failure with no change in her phlegm volume or color. Plan: I will treat the patient for COPD exacerbation and would decrease her Solu-Medrol to 20 mg IV q.6. I will place her on DuoNebs q.6 hours, I will discontinue her Advair, Spiriva. I will continue montelukast 10 q.day and roflumilast 500 mg p.o. q.day. I will look for other etiologies regarding her symptoms and have ordered an echocardiogram. Her D-dimer is positive and I will order CT angiogram of the chest, I have ordered lower extremity Dopplers.. If her CT angiogram of the chest shows any focal infiltrates consistent with a bacterial pneumonia will add ceftriaxone to her Levaquin. I will check respiratory pathogen panel, urine for Legionella antigen, urine for pneumococcal antigen and serum mycoplasma IgM. Goal saturation 90-94%, adjust oxygen accordingly. I will check an ABG to exclude hypercarbic respiratory failure. I will order alpha 1 anti trypsin genotype and level for the morning. Later in the day patient had an ABG on room air with pH 7.40/35/64. CT angiogram of the chest showed no PE, severe apical predominant centrilobular emphysema with no concerning nodules, masses or focal infiltrates. Lower extremity Dopplers were negative. Echocardiogram showed LVEF greater than 70%, grade 1 diastolic dysfunction, normal RV size and function. Normal left atrial size. Normal right atrial size. No tricuspid regurg so no PASP calculated. 03/02/25: Today the patient tells me she has improved. States she has 50% back to her normal. She has no rest shortness of breath. She has dyspnea on exertion when walking to the bathroom that is the same as yesterday. Her cough is at her baseline with no phlegm or hemoptysis. When I enter the room she was on room air with saturations 95%. She is afebrile. White blood cell count 7.7, creatinine 0.59. patient had hypotension this morning with a lactic acid of 3.1 and was started on levofloxacin and ceftriaxone. Plan: patient is slowly improving. patient has no wheezes and I will change her Solu-Medrol to prednisone 40 mg p.o. q.day, day 2 of steroids. Continue DuoNebs q.6 hours. Continue Daliresp 500 mg q.day, montelukast 10 q.day, Claritin 10 you day. respiratory pathogen panel, urine for Legionella antigen, urine for pneumococcal antigen and serum mycoplasma IgM. CT scan of the chest shows no focal infiltrate with procalcitonin yesterday 0.1. She never had infectious complaints for a pneumonia. Patient with hypotension and lactic acidosis this morning and started on Levaquin and ceftriaxone. Would consider other non pulmonary sources of infection. I will perform home O2 assessment today in case the patient is discharged over the weekend. Home O2 assessment: Rest room air saturation 95%. Exercise room air saturation 82%. Exercise nasal cannula 2 L saturation 86%. Exercise nasal cannula 3 L saturation 86%. Exercise nasal cannula 5 L saturation 93%. Patient requires no oxygen at rest and 5 with activity. 03/03/2025: Patient feels the same as she did yesterday. She states her breathing is 50% back to normal. Her cough is increased with no change in her phlegm. She has no shortness of breath sitting. Her dyspnea on exertion is a tiny bit better than yesterday. Room air saturations are 96%. She is afebrile. White blood cell count 8.6, creatinine 0.67. CRP is Unchanged from 03/01/2024 at less than 0.5. BNP has increased from 03/01/2025 from 95 to 1190 today. her weight is 65.5 with an increased from 59 kg on admission. Plan: Patient is clinically unchanged. She does have more phlegm today. Will check a chest x-ray. Continue prednisone 40 mg p.o. q.day, day 3. Continue DuoNebs q.6 and Daliresp 500 q.day. Continue montelukast 10 and Claritin 10. Patient was previously on Levaquin and received 1 dose of ceftriaxone and her antibiotics were changed yesterday to vancomycin, cefepime and doxycycline all day 2. Her respiratory pathogen panel is negative. Urine for Legionella antigen, urine for pneumococcal antigen and mycoplasma IgM are pending. Will follow with you. (2) Obstructive sleep apnea: Code(s): G47.33 - Obstructive sleep apnea (adult) (pediatric) Status: Chronic Assessment and Plan: 12/06/20? ? Split night sleep study showed mild sleep apnea, AHI 10.1, titrated to BiPAP 20/16 w/2L O2 bleed-in. Patient could not tolerate BiPAP and is not been treated for 2 to 3 years. Currently she is wearing 3 L oxygen at night 03/01/25: Plan: will continue 3 L at night. 03/02/25: Patient wore 3 L nasal cannula last night with no issues. Plan: I will perform an overnight oximetry on 3 L nasal cannula tonight. 03/03/2025: Patient had an overnight oximetry On 3 L nasal cannula with recording duration of 6 hours and 51 minutes. Average saturation 97%. Low saturation 77%. Time with saturation less than or equal to 88% was 0 minutes. Oxygen desaturation index 1.4. plan: No desaturations on 3 L nasal cannula will continue this at night. Subjective Date/time seen: 03/03/25 09:10 Interval history: 03/01/2025: This is a new pulmonary consult for COPD. In 74-year-old with a history of COPD with hypoxemic respiratory failure requiring no oxygen at rest, 4-5 L with activity and 3 with sleep, cirrhosis, CVID, KAREN untreated for 2 years on 3 L nasal cannula at night. Three weeks ago the patient states she had shortness of breath, phlegm and went to the emergency room on 02/08/2025 and was diagnosed with pneumonia and was treated with levofloxacin x7 days and prednisone x5 days. Patient took these medicines and recovered to 95% back to her normal. On 02/25/2025 the patient was normal and at baseline she can walk half a block and has to stop because of dyspnea on exertion. She has a chronic cough and wheezes every other day. She coughs up phlegm 6 times a day that is usually milky. On 02/26 2025 the patient developed dyspnea on exertion. She had no fever chills, rigors, change in her phlegm volume or color, wheezing, nasal congestion, chest pain or leg swelling. On 02/27/2025 she had worsening oxygenation and her saturations were 86% on room air. 02/28/2025 patient presented to the emergency room with shortness of breath. Her blood pressure is 119/59, heart rate 93, respirations 18, on 2 L nasal cannula saturations were 98%. White blood cell count was 4.6, eosinophils 4.6%. Creatinine 0.76. Chest x-ray with no effusions or infiltrates. Her lungs were clear to auscultation. She was treated for COPD exacerbation with Solu-Medrol, Levaquin, bronchodilators. 03/01/2025: Currently the patient tells me she is breathing normally at rest. She still has the same dyspnea on exertion and fatigue. On room air her saturations are 94%. Her white blood cell count is 2.9, creatinine 0.77, CRP less than 0.5, BNP 95, procalcitonin 0.1. D-dimer is positive at 0.61. CT angiogram of the chest has been ordered. Later in the day patient had an ABG on room air with pH 7.40/35/64. CT angiogram of the chest showed no PE, severe apical predominant centrilobular emphysema with no concerning nodules, masses or focal infiltrates. Lower extremity Dopplers were negative. Echocardiogram showed LVEF greater than 70%, grade 1 diastolic dysfunction, normal RV size and function. Normal left atrial size. Normal right atrial size. No tricuspid regurg so no PASP calculated. 03/02/25: Today the patient tells me she has improved. States she has 50% back to her normal. She has no rest shortness of breath. She has dyspnea on exertion when walking to the bathroom that is the same as yesterday. Her cough is at her baseline with no phlegm or hemoptysis. When I enter the room she was on room air with saturations 95%. She is afebrile. White blood cell count 7.7, creatinine 0.59. patient had hypotension this morning with a lactic acid of 3.1 and was started on levofloxacin and ceftriaxone. Home O2 assessment: Rest room air saturation 95%. Exercise room air saturation 82%. Exercise nasal cannula 2 L saturation 86%. Exercise nasal cannula 3 L saturation 86%. Exercise nasal cannula 5 L saturation 93%. Patient requires no oxygen at rest and 5 with activity. 03/03/2025: Patient feels the same as she did yesterday. She states her breathing is 50% back to normal. Her cough is increased with no change in her phlegm. She has no shortness of breath sitting. Her dyspnea on exertion is a tiny bit better than yesterday. Room air saturations are 96%. She is afebrile. White blood cell count 8.6, creatinine 0.67. CRP is Unchanged from 03/01/2024 at less than 0.5. BNP has increased from 03/01/2025 from 95 to 1190 today. her weight is 65.5 with an increased from 59 kg on admission. DATA: 03/02/25: Home O2 assessment: Rest room air saturation 95%. Exercise room air saturation 82%. Exercise nasal cannula 2 L saturation 86%. Exercise nasal cannula 3 L saturation 86%. Exercise nasal cannula 5 L saturation 93%. Patient requires no oxygen at rest and 5 with activity. 03/01/25: EXAMINATION: CTA chest PE protocol DATE: 03/01/2025 17:04 INDICATION: Chest pain. Lower extremity edema pain. TECHNIQUE: Computed tomography angiography (CTA) of the chest was performed with 100 mL Omnipaque-350 intravenous contrast timed to evaluate the pulmonary arteries. Coronal maximum intensity projection 3D-reconstructions were created by the technologist. Automated exposure control and iterative reconstruction technique were employed. The dose-length product was 258.57 mGy-cm. COMPARISON: Lower extremity venous Doppler dated 03/01/2025. FINDINGS: Significant emphysematous lungs without acute pulmonary lesions. No evidence of pulmonary emboli. Thoracic aorta shows atherosclerotic changes. Moderate calcific changes at the origin of superior mesenteric artery in the upper abdomen. IMPRESSION: 1. No evidence of pulmonary emboli. Significant emphysematous changes of lungs. 03/01/25: Echo Summary 1. Complete two-dimensional, color flow and Doppler transthoracic echocardiogram is performed. 2. Left ventricular chamber dimension is normal. 3. Left ventricular systolic function is hyperdynamic, estimated at >70. 4. The left ventricular diastolic function is grade I diastolic dysfunction. 5. E/e' 14 is mildly elevated. 6. The mitral valve has a moderately calcified annulus. 7. Normal inferior vena cava with <50% collapse upon inspiration consistent with elevated right atrial pressure, 10 mmHg. Right Ventricle Right ventricular chamber dimension is normal. Right ventricular systolic function is normal and with normal TAPSE 1.9 cm. Left Atria Left atrial chamber dimension is normal. Right Atria Right atrial chamber dimension is normal. 08/27/2024: CT Scan of the Chest without Contrast: Clinical Indication: Lymph node follow-up, shortness of breath Technique: Contiguous sections were acquired throughout the chest without intravenous contrast. Dose reduction technique was used on this scan by utilizing automated exposure control and iterative reconstruction technique. The dose-length product (DLP) was 110.73 mGy-cm. COMPARISON: 08/02/2023 Findings: Stable minimally prominent left paratracheal lymph node. No other lymphadenopathy identified. Coronary artery calcifications are present.. There is no evidence of pleural or pericardial effusion. Stable 4 mm nodule at the anteromedial left upper lobe (axial image 61). Moderate emphysema present. Images through the upper abdomen reveal no abnormalities. Impression: Stable minimally prominent left paratracheal lymph node. Stable 4 mm left upper lobe nodule. Moderate emphysema. 06/28/2024: Home O2 assessment, rest room air saturation 87%. Rest nasal cannula 1 L saturation 87%. Rest nasal cannula 2 L saturation 92%. Exercise nasal cannula 2 L saturation 85%. Exercise nasal cannula 3 L saturation 86%. Exercise nasal cannula 4 L saturation 87%. Exercise 5 L nasal cannula saturation 92%. Patient requires 2 L with rest and 5 with activity. 06/29/2024: Overnight oximetry on 2 L nasal cannula. Recording duration 8 hours and 11 minutes. Basal saturation 93.5%. High saturation 98%. Low saturation 79%. Time with saturation less than or equal to 88% was 22.41 minutes, oxygen desaturation index 2. Chest CTA 05/05/23 @ [facility] - no PE. R hilar node measuring 1.8cm. Trace pericardial effusion. Complete collapse of RML with central bronchial obstruction. Cannot exclude superimposed infection. Mild peripheral interstitial fibrotic change. Severe centrilobular emphysema. 5mm LLL nodule. PET-CT and/or follow-up Chest CT in 3-6 months. LDCT 09/18/22 - severe emphysema. There is mild atelectasis bilaterally. There is a stable 4 mm nodule in right upper lobe. PET-CT 09/25/21 - 9 mm part solid nodule in left lung upper lobe without increased activity with marked interval improvement, consistent with infection. Severe emphysema. 08/26/2021 -?chest CTA [place]?-? 3 cm irregularly marginated left upper lobe soft tissue mass centrally.? Recommend bronchoscopy and biopsy to exclude malignancy. No PE. ? Emphysematous? changes.? Linear densities throughout the left upper lobe which could relate to lymphangitic spread of neoplasm.? There are smaller densities peripherally which could relate to satellite pulmonary nodules.? The appearance of this process is most worrisome for malignancy although other etiologies could include unusual appearance of infection.? Small mediastinal lymph nodes 10/20/20?chest CTA?[facility]?; 2.1cm left lower lobe nodule, suspicious for bronchogenic carcinoma with possible right hilar metastases. Consider percutaneous biopsy using CT guidance or PET/CT examination. 10/25/2017 PFT - severe COPD. FEV 1 .99Liters, 55%. Markedly decreased DLCO. No acute bronchodilator response. FEV1/FVC 37%. NIOX-Normal. 03/17/20 Chest CTA - No evidence of pulmonary embolism. Prominent emphysematous changes. Stable 5 mm left lower lobe pulmonary nodule since 01/25/2019. 12/22/[address] - Resolved left lower lobe nodule, consistent with resolving pneumonia. Severe emphysema. 12/06/20? ? Split night sleep study showed mild sleep apnea, AHI 10.1, titrated to BiPAP 20/16 w/2L O2 bleed-in. Jan 2020- split night sleep study; 04/2018 echo - grade I diastolic dysfunction, EF 60%, normal RVSP. Review of Systems Constitutional: Constitutional: Reports no additional constitutional complaints Eyes: Eyes: Reports no additional eye complaints ENT: Reports system reviewed and no additional complaints, except as documented Cardiovascular: Cardiovascular: Reports no additional cardiovascular complaints Respiratory: Respiratory: Reports no additional respiratory complaints Gastrointestinal: Gastrointestinal: Reports no additional gastrointestinal complaints Musculoskeletal: Musculoskeletal: Reports no additional musculoskeletal complaints Neurologic: Reports system reviewed and no additional complaints, except as documented Psychiatric: Psychiatric: Reports no additional psychiatric complaints Endocrine: Endocrine: Reports no additional endocrine complaints Hematologic/Lymphatic: Hematologic/Lymphatic: Reports no additional hematologic/lymphatic complaints Allergic/Immunologic: Allergic/Immunologic: Reports no additional allergic/immunologic complaints Exam Const: General: cooperative, healthy appearing and comfortable Orientation/consciousness: oriented to person, oriented to place and oriented to time HENMT: Head: normal to inspection Ears: hearing grossly normal bilaterally Eyes: General: appearance normal, both eyes and all related structures Neck: Neck: normal visual inspection Chest: Chest palpation & inspection: normal inspection of the chest Resp: Effort & Inspection: normal respiratory effort and able to speak in complete sentences Auscultation: no crackles, no rales, no rhonchi, no wheezes and diminished lung sounds Other: Decreased breath sounds bilaterally no wheezes. Cardio: Jugular venous distension: no JVD GI: Inspection: normal to inspection Skin: General skin exam: normal color Neuro: General: oriented to person, oriented to place and oriented to time Extrem: General: normal to inspection Other: Trace edema Psych: Appearance: grossly normal Objective Data Vital Signs Vital Signs: Vital Signs - 24 hr 03/02/25 09:13 03/02/25 09:13 03/02/25 09:21 Temperature Pulse Rate 100 104 H Respiratory Rate 18 18 Blood Pressure Pulse Oximetry 95 Oxygen Delivery Room Air Oxygen Flow Rate Fraction of Inspired Oxygen 03/02/25 10:45 03/02/25 13:30 03/02/25 13:37 Temperature Pulse Rate 100 100 Respiratory Rate 18 20 Blood Pressure Pulse Oximetry Oxygen Delivery Room Air Oxygen Flow Rate Fraction of Inspired Oxygen 03/02/25 14:00 03/02/25 14:00 03/02/25 14:05 Temperature 36.6 C Pulse Rate 95 Respiratory Rate 26 H Blood Pressure 116/57 L Pulse Oximetry 95 96 82 L Oxygen Delivery Room Air Room Air Oxygen Flow Rate Fraction of Inspired Oxygen 03/02/25 14:07 03/02/25 14:08 03/02/25 14:09 Temperature Pulse Rate Respiratory Rate Blood Pressure Pulse Oximetry 86 L 86 L 93 Oxygen Delivery Nasal Cannula Nasal Cannula Nasal Cannula Oxygen Flow Rate 2 3 5 Fraction of Inspired Oxygen 03/02/25 14:15 03/02/25 20:00 03/02/25 20:59 Temperature 36.1 C L Pulse Rate 97 Respiratory Rate 17 Blood Pressure 112/68 Pulse Oximetry 95 94 Oxygen Delivery Room Air Room Air Oxygen Flow Rate Fraction of Inspired Oxygen 03/02/25 21:25 03/02/25 21:35 03/02/25 22:21 Temperature Pulse Rate 96 99 Respiratory Rate 20 20 Blood Pressure Pulse Oximetry 98 Oxygen Delivery Nasal Cannula Oxygen Flow Rate 3 Fraction of Inspired Oxygen 03/03/25 06:00 03/03/25 08:42 03/03/25 08:45 Temperature 36.4 C L Pulse Rate 90 98 Respiratory Rate 18 20 Blood Pressure 109/63 Pulse Oximetry 100 98 Oxygen Delivery Nasal Cannula Oxygen Flow Rate 3 Fraction of Inspired Oxygen 32 Intake/Output Intake/Output: Intake & Output 02/28/25 03/01/25 03/02/25 03/03/25 23:59 23:59 23:59 23:59 Intake Total 1270 1710 350 Output Total 300 Balance 970 1710 350 Meds/Results Medications: Active Medications Generic Name Dose Route Start Last Admin Trade Name Freq PRN Reason Stop Dose Admin Albuterol/Ipratropium 3 ml 03/01/25 08:00 03/03/25 08:43 Ipratropium 0.5 Mg/Albuterol Sulfate 2.5 Mg (Base) Ampul.Neb 3 Ml INHALATION 3 ml Q6HRT LOVELY Administration Atorvastatin Calcium 40 mg 03/01/25 21:00 03/02/25 20:36 Atorvastatin 40 Mg Tablet BY MOUTH 40 mg HS LOVELY Administration Buspirone HCl 10 mg/ Buspirone 15 mg 03/01/25 23:15 03/03/25 09:06 HCl 5 mg PO 15 mg BID LOVELY Administration Diltiazem HCl 120 mg 03/01/25 09:00 03/03/25 09:09 Diltiazem Hcl Cd 120 Mg Cap.24hr BY MOUTH Not Given DAILY LOVELY Ergocalciferol 1,250 mcg 03/07/25 09:00 Ergocalciferol (Vitamin D2) 1,250 Mcg (50,000 Units) Capsule PO [id number] [facility] Ferrous Sulfate 325 mg 03/01/25 21:00 03/02/25 20:35 Ferrous Sulfate 325 Mg Tablet BY MOUTH 325 mg HS LOVELY Administration Levofloxacin/Dextrose 750 mg in 150 mls @ 100 mls/hr 03/03/25 09:00 03/03/25 09:07 Levaquin 750 Mg/D5w 150 Ml IVPB 100 mls/hr Q48H LOVELY Administration Doxycycline Hyclate 100 mg/ 100 mls @ 100 mls/hr 03/02/25 20:00 03/02/25 21:38 Sodium Chloride IVPB Infused Q12H LOVELY Infusion Cefepime HCl 2 gm/ Sodium 50 mls @ 100 mls/hr 03/02/25 21:00 03/03/25 06:23 Chloride IVPB Infused Q8H LOVELY Infusion Vancomycin HCl 1,250 mg in 250 mls @ 166.667 mls/hr 03/03/25 22:00 Vancomycin 1,250 Mg/Ns 250 Ml IVPB Q24H [facility] Levothyroxine Sodium 88 mcg 03/01/25 06:30 03/03/25 05:53 Levothyroxine Sodium 88 Mcg Tablet BY MOUTH 88 mcg DAILY@0630 [facility] Administration Lidocaine 1 patch 03/01/25 17:17 Lidocaine 5% Patch TOPICAL DAILY PRN PAINFUL AREA Lisinopril 10 mg 03/01/25 21:00 03/01/25 21:18 Lisinopril 10 Mg Tablet BY MOUTH 10 mg On Hold: 03/02/25 09:15 HS LOVELY Administration Loratadine 10 mg 03/01/25 21:00 03/02/25 20:37 Loratadine 10 Mg Tablet PO 10 mg HS LOVELY Administration Montelukast Sodium 10 mg 03/01/25 21:00 03/02/25 20:37 Montelukast Sodium 10 Mg Tablet BY MOUTH 10 mg HS LOVELY Administration Pantoprazole Sodium 40 mg 03/01/25 09:00 03/03/25 09:07 Pantoprazole 40 Mg Tablet PO 40 mg Q12HR LOVELY Administration Perflutren Lipid Microsphere 0 ml 03/01/25 12:30 Perflutren Lipid Microspheres 1.5 Ml Vial Diluted To 10 Ml Total Volume IV PUSH 03/04/25 12:30 ONCE PRN adequate visualization Protocol Potassium Chloride 20 meq 03/01/25 09:00 03/03/25 09:07 Potassium Chloride 20 Meq Er Tablet PO 20 meq DAILY LOVELY Administration Prednisone 40 mg 03/02/25 10:35 03/03/25 09:06 Prednisone 20 Mg Tablet PO 40 mg DAILY@0800 LOVELY Administration Roflumilast 500 mcg 03/01/25 09:00 03/03/25 09:10 Roflumilast 500 Mcg Tablet PO 500 mcg DAILY LOVELY Administration Ropinirole HCl 1 mg 03/01/25 21:00 03/02/25 20:36 Ropinirole Hcl 1 Mg Tablet BY MOUTH 1 mg QHS LOVELY Administration Topiramate 50 mg 03/01/25 21:00 03/03/25 09:06 Topiramate 25 Mg Tablet PO 50 mg Q12HR LOVELY Administration Valacyclovir HCl 500 mg 03/01/25 09:00 03/03/25 09:05 Valacyclovir Hcl 500 Mg Tablet PO 500 mg DAILY LOVELY Administration Venlafaxine HCl 150 mg 03/01/25 21:00 03/02/25 20:38 Venlafaxine Hcl Xr 75 Mg Cap.Er.24h PO 150 mg HS LOVELY Administration Radiology Results: ITS Impressions Venous Doppler Study 03/01/25 17:01 IMPRESSION: 1. No deep venous thrombosis. Chest CTA 03/01/25 17:05 IMPRESSION: 1. No evidence of pulmonary emboli. Significant emphysematous changes of lungs. Labs Labs: Laboratory Results - last 24 hr 03/01/25 03/02/25 03/02/25 12:51 06:00 15:21 WBC RBC Hgb Hct MCV MCH MCHC RDW Plt Count MPV Sodium Potassium Chloride Carbon Dioxide Anion Gap BUN Creatinine Estim Creat Clear Calc Estimated GFR Glucose Lactic Acid 3.2 H Calcium C-Reactive Protein NT-Pro-B Natriuret Pep [id number] 141 TSH Nasal MRSA (PCR) Chlamy pneumoniae PCR Not detected Adenovirus (PCR) Not detected B. pertussis DNA (PCR) Not detected B.parapertussis DNA PCR Not detected Coronavirus OC43 (PCR) Not detected Coronavirus HKU1 (PCR) Not detected Coronavirus 229E (PCR) Not detected Coronavirus NL63 (PCR) Not detected Human Metapneumovir PCR Not detected Influenza A (H1) PCR Not detected Influ A () PCR Not detected Influenza A (H3) PCR Not detected Influenza Type A (PCR) Not detected Influenza Type B (PCR) Not detected M. pneumoniae (PCR) Not detected Parainfluenza 1 (PCR) Not detected Parainfluenza 2 (PCR) Not detected Parainfluenza 3 (PCR) Not detected Parainfluenza 4 (PCR) Not detected RSV (PCR) Not detected Entero/Rhino (PCR) Not detected SARS-CoV-2 (PCR) Not detected 03/02/25 03/02/25 03/03/25 20:33 23:04 05:31 WBC 8.6 RBC 2.72 L Hgb 10.9 L Hct 29.2 L MCV 107.4 H D MCH 40.1 H MCHC 37.3 H RDW 18.5 H Plt Count 203 MPV 10.0 Sodium 139 Potassium 3.9 Chloride 112 H Carbon Dioxide 23 Anion Gap 4 BUN 16 Creatinine 0.67 L Estim Creat Clear Calc 55 Estimated GFR > 60 Glucose 93 Lactic Acid 1.7 1.3 Calcium 8.1 L C-Reactive Protein < 0.5 NT-Pro-B Natriuret Pep 1190 H [id number] TSH 0.837 Nasal MRSA (PCR) Not detected Chlamy pneumoniae PCR Adenovirus (PCR) B. pertussis DNA (PCR) B.parapertussis DNA PCR Coronavirus OC43 (PCR) Coronavirus HKU1 (PCR) Coronavirus 229E (PCR) Coronavirus NL63 (PCR) Human Metapneumovir PCR Influenza A (H1) PCR Influ A () PCR Influenza A (H3) PCR Influenza Type A (PCR) Influenza Type B (PCR) M. pneumoniae (PCR) Parainfluenza 1 (PCR) Parainfluenza 2 (PCR) Parainfluenza 3 (PCR) Parainfluenza 4 (PCR) RSV (PCR) Entero/Rhino (PCR) SARS-CoV-2 (PCR)
[2025-03-03 09:26] LABS: Procalcitonin 0.1 ng/mL
[2025-03-03] MEDS: DOXYCYCLINE IV 100 MG in SODIUM CHLORIDE 0.9% IV 100 ML IVPB ×2 (10:31→20:55)
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
[2025-03-03] MEDS: MONTELUKAST SODIUM 10 MG TABLET BY MOUTH (20:58)
[2025-03-03] MEDS: FERROUS SULFATE 325 MG TABLET BY MOUTH (20:58)
[2025-03-03] MEDS: LORATADINE 10 MG TABLET PO (20:58)
[2025-03-03] MEDS: ATORVASTATIN 40 MG TABLET BY MOUTH (20:59)
[2025-03-03] MEDS: dilTIAZem HCL CD 120 MG CAP.24HR BY MOUTH (20:59)
[2025-03-03] MEDS: VENLAFAXINE HCL XR 75 MG CAP.ER.24H 150 MG PO (20:59)
[2025-03-03] MEDS: VANCOMYCIN 1,250 MG/NS 250 ML 1,250 MG/250 ML BAG 125 MG IVPB (23:27)
--- NOTE | 2025-03-04 03:59 | PCRCNOTE ---
Patient asked to not be awakened for her 0200 updraft treatment. RT instructed pt if she was having trouble breathing, call RN to call RT. Treatment to resume @ 0800.
[2025-03-04] MEDS: LEVOTHYROXINE SODIUM 88 MCG TABLET BY MOUTH (05:19)
[2025-03-04] MEDS: CEFEPIME 2 GM in SODIUM CHLORIDE 0.9% IV 50 ML 100 ML IVPB (05:19)
[2025-03-04 05:42] LABS: Hematocrit 33.8 % (37.0-47.0); Hemoglobin 12.1 g/dL (12.0-15.0); Mean Corpuscular HGB Conc 35.8 g/dl (32-36); Mean Corpuscular Hemoglobin 37.0 pg (26-34); Mean Corpuscular Volume 103.4 fl (80-100); Platelet Count Result 199 k/mm3 (150-375); Red Blood Count 3.27 M/mm3 (4.2-5.4); White Blood Count 5.9 K/mm3 (4.5-10.0)
[2025-03-04 05:48] VITALS: BP 108/86; PULSE 86; RESP 18; TEMP 36; O2SAT 100
[2025-03-04 05:58] LABS: Anion Gap 4 mmol/L (4-12); Blood Urea Nitrogen 14 mg/dL (7-17); Calcium 8.6 mg/dL (8.4-10.2); Carbon Dioxide 28 mmol/L (22-30); Chloride 108 mmol/L (98-107); Estimated CRCL calculation 52 ml/min; Estimated Glomerular Filt Rate > 60; Glucose 88 mg/dL (65-110); Potassium 4.0 mmol/L (3.4-5.0); Sodium 140 mmol/L (137-145)
[2025-03-04 08:00] VITALS: O2SAT 97
[2025-03-04 08:15] VITALS: PULSE 96; RESP 20; O2SAT 92
[2025-03-04] MEDS: IPRATROPIUM 0.5 MG/ALBUTEROL SULFATE 2.5 MG (BASE) AMPUL.NEB 3 ML INHALATION (08:15)
[2025-03-04 08:22] VITALS: PULSE 92; RESP 20
[2025-03-04] MEDS: PANTOPRAZOLE 40 MG TABLET PO (08:45)
[2025-03-04] MEDS: TOPIRAMATE 25 MG TABLET 50 MG PO (08:45)
[2025-03-04] MEDS: ROFLUMILAST 500 MCG TABLET PO (08:46)
[2025-03-04] MEDS: POTASSIUM CHLORIDE 20 MEQ ER TABLET PO (08:46)
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
[2025-03-04 09:00] VITALS: BP 116/60; PULSE 99; O2SAT 97
--- NOTE | 2025-03-04 09:23 | PM.PNPUL ---
Progress Note: A&P Assessment and Plan (1) Acute exacerbation of chronic obstructive pulmonary disease: Code(s): J44.1 - Chronic obstructive pulmonary disease with (acute) exacerbation Status: Acute Assessment and Plan: GOLD grade 2 group E COPD Patient with 82 pack year tobacco use, PFTs 2018 with FEV1 1.99 L, 55% predicted. Decreased DLCO, no bronchodilator response, ratio 37%. CT scan of the chest From 1st report in our system on 01/02/2009 and most recent on 08/27/2024 and 03/01/25 with severe apical predominant centrilobular emphysema. Chronic hypoxemic respiratory failure requiring no oxygen at rest, 4-5 L with activity and 3 L with sleep. ABG 03/19/2024 with pH of 7.40/39/86 on 2 L nasal cannula. 03/01/2025: Patient presents with worsening dyspnea on exertion, hypoxemic respiratory failure with no change in her phlegm volume or color. Plan: I will treat the patient for COPD exacerbation and would decrease her Solu-Medrol to 20 mg IV q.6. I will place her on DuoNebs q.6 hours, I will discontinue her Advair, Spiriva. I will continue montelukast 10 q.day and roflumilast 500 mg p.o. q.day. I will look for other etiologies regarding her symptoms and have ordered an echocardiogram. Her D-dimer is positive and I will order CT angiogram of the chest, I have ordered lower extremity Dopplers.. If her CT angiogram of the chest shows any focal infiltrates consistent with a bacterial pneumonia will add ceftriaxone to her Levaquin. I will check respiratory pathogen panel, urine for Legionella antigen, urine for pneumococcal antigen and serum mycoplasma IgM. Goal saturation 90-94%, adjust oxygen accordingly. I will check an ABG to exclude hypercarbic respiratory failure. I will order alpha 1 anti trypsin genotype and level for the morning. Later in the day patient had an ABG on room air with pH 7.40/35/64. CT angiogram of the chest showed no PE, severe apical predominant centrilobular emphysema with no concerning nodules, masses or focal infiltrates. Lower extremity Dopplers were negative. Echocardiogram showed LVEF greater than 70%, grade 1 diastolic dysfunction, normal RV size and function. Normal left atrial size. Normal right atrial size. No tricuspid regurg so no PASP calculated. 03/02/25: Today the patient tells me she has improved. States she has 50% back to her normal. She has no rest shortness of breath. She has dyspnea on exertion when walking to the bathroom that is the same as yesterday. Her cough is at her baseline with no phlegm or hemoptysis. When I enter the room she was on room air with saturations 95%. She is afebrile. White blood cell count 7.7, creatinine 0.59. patient had hypotension this morning with a lactic acid of 3.1 and was started on levofloxacin and ceftriaxone. Plan: patient is slowly improving. patient has no wheezes and I will change her Solu-Medrol to prednisone 40 mg p.o. q.day, day 2 of steroids. Continue DuoNebs q.6 hours. Continue Daliresp 500 mg q.day, montelukast 10 q.day, Claritin 10 you day. respiratory pathogen panel, urine for Legionella antigen, urine for pneumococcal antigen and serum mycoplasma IgM. CT scan of the chest shows no focal infiltrate with procalcitonin yesterday 0.1. She never had infectious complaints for a pneumonia. Patient with hypotension and lactic acidosis this morning and started on Levaquin and ceftriaxone. Would consider other non pulmonary sources of infection. I will perform home O2 assessment today in case the patient is discharged over the weekend. Home O2 assessment: Rest room air saturation 95%. Exercise room air saturation 82%. Exercise nasal cannula 2 L saturation 86%. Exercise nasal cannula 3 L saturation 86%. Exercise nasal cannula 5 L saturation 93%. Patient requires no oxygen at rest and 5 with activity. 03/03/2025: Patient feels the same as she did yesterday. She states her breathing is 50% back to normal. Her cough is increased with no change in her phlegm. She has no shortness of breath sitting. Her dyspnea on exertion is a tiny bit better than yesterday. Room air saturations are 96%. She is afebrile. White blood cell count 8.6, creatinine 0.67. CRP is Unchanged from 03/01/2024 at less than 0.5. BNP has increased from 03/01/2025 from 95 to 1190 today. her weight is 65.5 with an increased from 59 kg on admission. Plan: Patient is clinically unchanged. She does have more phlegm today. Will check a chest x-ray. Continue prednisone 40 mg p.o. q.day, day 3. Continue DuoNebs q.6 and Daliresp 500 q.day. Continue montelukast 10 and Claritin 10. Patient was previously on Levaquin and received 1 dose of ceftriaxone and her antibiotics were changed yesterday to vancomycin, cefepime and doxycycline all day 2. Her respiratory pathogen panel is negative. Urine for Legionella antigen, urine for pneumococcal antigen and mycoplasma IgM are pending. 03/04/2025: Patient tells me she is much improved today. She is feeling 90% back to her normal. Her cough is better but still persists and is dry with no phlegm and no hemoptysis. She has no shortness of breath at rest. When she walks to the bathroom her dyspnea on exertion is at her baseline. Currently she is on room air with saturations 99%. She is afebrile. White blood cell count 5.9, creatinine 0.71. Her weight today is 65.7 kg. She tells me she is ready to go home today. From a pulmonary perspective patient is ready to be discharged home on these pulmonary medications: Prednisone 40 mg p.o. q.day x1 day, last dose 03/05/25 Levaquin 750 mg p.o. q.day x3 days, last dose 03/07/2025 Advair 250-50 at 1 puff b.i.d.. Spiriva HandiHaler 18 mcg 1 puff q.day Daliresp 500 mg p.o. q.day Montelukast 10 mg p.o. q.day Claritin 10 mg p.o. q.day Guaifenesin 1200 mg p.o. b.i.d. Oxygen: None at rest and 5 L with activity. When she naps or sleeps 3 L nasal cannula. Follow-up in the Pulmonary Clinic in 3-4 weeks. I gave her a business card and informed our cone chocolate dipper. Discussed with Chanel Falk, will sign off, call with questions. Will follow with you. (2) Obstructive sleep apnea: Code(s): G47.33 - Obstructive sleep apnea (adult) (pediatric) Status: Chronic Assessment and Plan: 12/06/20? ? Split night sleep study showed mild sleep apnea, AHI 10.1, titrated to BiPAP 20/16 w/2L O2 bleed-in. Patient could not tolerate BiPAP and is not been treated for 2 to 3 years. Currently she is wearing 3 L oxygen at night 03/01/25: Plan: will continue 3 L at night. 03/02/25: Patient wore 3 L nasal cannula last night with no issues. Plan: I will perform an overnight oximetry on 3 L nasal cannula tonight. 03/03/2025: Patient had an overnight oximetry On 3 L nasal cannula with recording duration of 6 hours and 51 minutes. Average saturation 97%. Low saturation 77%. Time with saturation less than or equal to 88% was 0 minutes. Oxygen desaturation index 1.4. plan: No desaturations on 3 L nasal cannula will continue this at night. 03/04/2025: Continue 3 L nasal cannula at night. Subjective Date/time seen: 03/04/25 09:23 Interval history: 03/01/2025: This is a new pulmonary consult for COPD. In 74-year-old with a history of COPD with hypoxemic respiratory failure requiring no oxygen at rest, 4-5 L with activity and 3 with sleep, cirrhosis, CVID, KAREN untreated for 2 years on 3 L nasal cannula at night. Three weeks ago the patient states she had shortness of breath, phlegm and went to the emergency room on 02/08/2025 and was diagnosed with pneumonia and was treated with levofloxacin x7 days and prednisone x5 days. Patient took these medicines and recovered to 95% back to her normal. On 02/25/2025 the patient was normal and at baseline she can walk half a block and has to stop because of dyspnea on exertion. She has a chronic cough and wheezes every other day. She coughs up phlegm 6 times a day that is usually milky. On 02/26 2025 the patient developed dyspnea on exertion. She had no fever chills, rigors, change in her phlegm volume or color, wheezing, nasal congestion, chest pain or leg swelling. On 02/27/2025 she had worsening oxygenation and her saturations were 86% on room air. 02/28/2025 patient presented to the emergency room with shortness of breath. Her blood pressure is 119/59, heart rate 93, respirations 18, on 2 L nasal cannula saturations were 98%. White blood cell count was 4.6, eosinophils 4.6%. Creatinine 0.76. Chest x-ray with no effusions or infiltrates. Her lungs were clear to auscultation. She was treated for COPD exacerbation with Solu-Medrol, Levaquin, bronchodilators. 03/01/2025: Currently the patient tells me she is breathing normally at rest. She still has the same dyspnea on exertion and fatigue. On room air her saturations are 94%. Her white blood cell count is 2.9, creatinine 0.77, CRP less than 0.5, BNP 95, procalcitonin 0.1. D-dimer is positive at 0.61. CT angiogram of the chest has been ordered. Later in the day patient had an ABG on room air with pH 7.40/35/64. CT angiogram of the chest showed no PE, severe apical predominant centrilobular emphysema with no concerning nodules, masses or focal infiltrates. Lower extremity Dopplers were negative. Echocardiogram showed LVEF greater than 70%, grade 1 diastolic dysfunction, normal RV size and function. Normal left atrial size. Normal right atrial size. No tricuspid regurg so no PASP calculated. 03/02/25: Today the patient tells me she has improved. States she has 50% back to her normal. She has no rest shortness of breath. She has dyspnea on exertion when walking to the bathroom that is the same as yesterday. Her cough is at her baseline with no phlegm or hemoptysis. When I enter the room she was on room air with saturations 95%. She is afebrile. White blood cell count 7.7, creatinine 0.59. patient had hypotension this morning with a lactic acid of 3.1 and was started on levofloxacin and ceftriaxone. Home O2 assessment: Rest room air saturation 95%. Exercise room air saturation 82%. Exercise nasal cannula 2 L saturation 86%. Exercise nasal cannula 3 L saturation 86%. Exercise nasal cannula 5 L saturation 93%. Patient requires no oxygen at rest and 5 with activity. 03/03/2025: Patient feels the same as she did yesterday. She states her breathing is 50% back to normal. Her cough is increased with no change in her phlegm. She has no shortness of breath sitting. Her dyspnea on exertion is a tiny bit better than yesterday. Room air saturations are 96%. She is afebrile. White blood cell count 8.6, creatinine 0.67. CRP is Unchanged from 03/01/2024 at less than 0.5. BNP has increased from 03/01/2025 from 95 to 1190 today. her weight is 65.5 with an increased from 59 kg on admission. 03/04/2025: Patient tells me she is much improved today. She is feeling 90% back to her normal. Her cough is better but still persists and is dry with no phlegm and no hemoptysis. She has no shortness of breath at rest. When she walks to the bathroom her dyspnea on exertion is at her baseline. Currently she is on room air with saturations 99%. She is afebrile. White blood cell count 5.9, creatinine 0.71. Her weight today is 65.7 kg. She tells me she is ready to go home today. DATA: 03/02/25: Home O2 assessment: Rest room air saturation 95%. Exercise room air saturation 82%. Exercise nasal cannula 2 L saturation 86%. Exercise nasal cannula 3 L saturation 86%. Exercise nasal cannula 5 L saturation 93%. Patient requires no oxygen at rest and 5 with activity. 03/01/25: EXAMINATION: CTA chest PE protocol DATE: 03/01/2025 17:04 INDICATION: Chest pain. Lower extremity edema pain. TECHNIQUE: Computed tomography angiography (CTA) of the chest was performed with 100 mL Omnipaque-350 intravenous contrast timed to evaluate the pulmonary arteries. Coronal maximum intensity projection 3D-reconstructions were created by the technologist. Automated exposure control and iterative reconstruction technique were employed. The dose-length product was 258.57 mGy-cm. COMPARISON: Lower extremity venous Doppler dated 03/01/2025. FINDINGS: Significant emphysematous lungs without acute pulmonary lesions. No evidence of pulmonary emboli. Thoracic aorta shows atherosclerotic changes. Moderate calcific changes at the origin of superior mesenteric artery in the upper abdomen. IMPRESSION: 1. No evidence of pulmonary emboli. Significant emphysematous changes of lungs. 03/01/25: Echo Summary 1. Complete two-dimensional, color flow and Doppler transthoracic echocardiogram is performed. 2. Left ventricular chamber dimension is normal. 3. Left ventricular systolic function is hyperdynamic, estimated at >70. 4. The left ventricular diastolic function is grade I diastolic dysfunction. 5. E/e' 14 is mildly elevated. 6. The mitral valve has a moderately calcified annulus. 7. Normal inferior vena cava with <50% collapse upon inspiration consistent with elevated right atrial pressure, 10 mmHg. Right Ventricle Right ventricular chamber dimension is normal. Right ventricular systolic function is normal and with normal TAPSE 1.9 cm. Left Atria Left atrial chamber dimension is normal. Right Atria Right atrial chamber dimension is normal. 08/27/2024: CT Scan of the Chest without Contrast: Clinical Indication: Lymph node follow-up, shortness of breath Technique: Contiguous sections were acquired throughout the chest without intravenous contrast. Dose reduction technique was used on this scan by utilizing automated exposure control and iterative reconstruction technique. The dose-length product (DLP) was 110.73 mGy-cm. COMPARISON: 08/02/2023 Findings: Stable minimally prominent left paratracheal lymph node. No other lymphadenopathy identified. Coronary artery calcifications are present.. There is no evidence of pleural or pericardial effusion. Stable 4 mm nodule at the anteromedial left upper lobe (axial image 61). Moderate emphysema present. Images through the upper abdomen reveal no abnormalities. Impression: Stable minimally prominent left paratracheal lymph node. Stable 4 mm left upper lobe nodule. Moderate emphysema. 06/28/2024: Home O2 assessment, rest room air saturation 87%. Rest nasal cannula 1 L saturation 87%. Rest nasal cannula 2 L saturation 92%. Exercise nasal cannula 2 L saturation 85%. Exercise nasal cannula 3 L saturation 86%. Exercise nasal cannula 4 L saturation 87%. Exercise 5 L nasal cannula saturation 92%. Patient requires 2 L with rest and 5 with activity. 06/29/2024: Overnight oximetry on 2 L nasal cannula. Recording duration 8 hours and 11 minutes. Basal saturation 93.5%. High saturation 98%. Low saturation 79%. Time with saturation less than or equal to 88% was 22.41 minutes, oxygen desaturation index 2. Chest CTA 05/05/23 @ [facility] - no PE. R hilar node measuring 1.8cm. Trace pericardial effusion. Complete collapse of RML with central bronchial obstruction. Cannot exclude superimposed infection. Mild peripheral interstitial fibrotic change. Severe centrilobular emphysema. 5mm LLL nodule. PET-CT and/or follow-up Chest CT in 3-6 months. LDCT 09/18/22 - severe emphysema. There is mild atelectasis bilaterally. There is a stable 4 mm nodule in right upper lobe. PET-CT 09/25/21 - 9 mm part solid nodule in left lung upper lobe without increased activity with marked interval improvement, consistent with infection. Severe emphysema. 08/26/2021 -?chest CTA [place]?-? 3 cm irregularly marginated left upper lobe soft tissue mass centrally.? Recommend bronchoscopy and biopsy to exclude malignancy. No PE. ? Emphysematous? changes.? Linear densities throughout the left upper lobe which could relate to lymphangitic spread of neoplasm.? There are smaller densities peripherally which could relate to satellite pulmonary nodules.? The appearance of this process is most worrisome for malignancy although other etiologies could include unusual appearance of infection.? Small mediastinal lymph nodes 10/20/20?chest CTA?[place]?; 2.1cm left lower lobe nodule, suspicious for bronchogenic carcinoma with possible right hilar metastases. Consider percutaneous biopsy using CT guidance or PET/CT examination. 10/25/2017 PFT - severe COPD. FEV 1 .99Liters, 55%. Markedly decreased DLCO. No acute bronchodilator response. FEV1/FVC 37%. NIOX-Normal. 03/17/20 Chest CTA - No evidence of pulmonary embolism. Prominent emphysematous changes. Stable 5 mm left lower lobe pulmonary nodule since 01/25/2019. 12/22/[address] - Resolved left lower lobe nodule, consistent with resolving pneumonia. Severe emphysema. 12/06/20? ? Split night sleep study showed mild sleep apnea, AHI 10.1, titrated to BiPAP 20/16 w/2L O2 bleed-in. Jan 2020- split night sleep study; 04/2018 echo - grade I diastolic dysfunction, EF 60%, normal RVSP. Review of Systems Constitutional: Constitutional: Reports no additional constitutional complaints Eyes: Eyes: Reports no additional eye complaints ENT: Reports system reviewed and no additional complaints, except as documented Cardiovascular: Cardiovascular: Reports no additional cardiovascular complaints Respiratory: Respiratory: Reports no additional respiratory complaints Gastrointestinal: Gastrointestinal: Reports no additional gastrointestinal complaints Musculoskeletal: Musculoskeletal: Reports no additional musculoskeletal complaints Neurologic: Reports system reviewed and no additional complaints, except as documented Psychiatric: Psychiatric: Reports no additional psychiatric complaints Endocrine: Endocrine: Reports no additional endocrine complaints Hematologic/Lymphatic: Hematologic/Lymphatic: Reports no additional hematologic/lymphatic complaints Allergic/Immunologic: Allergic/Immunologic: Reports no additional allergic/immunologic complaints Exam Const: General: cooperative, healthy appearing and comfortable Orientation/consciousness: oriented to person, oriented to place and oriented to time HENMT: Head: normal to inspection Ears: hearing grossly normal bilaterally Eyes: General: appearance normal, both eyes and all related structures Neck: Neck: normal visual inspection Chest: Chest palpation & inspection: normal inspection of the chest Resp: Effort & Inspection: normal respiratory effort and able to speak in complete sentences Auscultation: no crackles, no rales, no rhonchi, wheezes and diminished lung sounds Other: Decreased breath sounds bilaterally, Faint end expiratory wheeze right lower lobe. Cardio: Jugular venous distension: no JVD GI: Inspection: normal to inspection Skin: General skin exam: normal color Neuro: General: oriented to person, oriented to place and oriented to time Extrem: General: normal to inspection Other: Trace edema Psych: Appearance: grossly normal Objective Data Vital Signs Vital Signs: Vital Signs - 24 hr 03/03/25 13:45 03/03/25 13:53 03/03/25 14:00 Temperature 36.8 C Pulse Rate 98 95 102 H Respiratory Rate 20 20 18 Blood Pressure 114/60 Pulse Oximetry 97 Oxygen Delivery Oxygen Flow Rate Fraction of Inspired Oxygen 03/03/25 20:00 03/03/25 20:29 03/03/25 21:11 Temperature 36.7 C Pulse Rate 98 98 96 Respiratory Rate 20 18 20 Blood Pressure 122/62 Pulse Oximetry 98 96 Oxygen Delivery Nasal Cannula Oxygen Flow Rate 3 Fraction of Inspired Oxygen 32 03/03/25 21:14 03/03/25 21:17 03/04/25 05:48 Temperature 36.0 C L Pulse Rate 98 86 Respiratory Rate 20 18 Blood Pressure 108/86 Pulse Oximetry 98 100 Oxygen Delivery Nasal Cannula Oxygen Flow Rate 3 Fraction of Inspired Oxygen 03/04/25 08:15 03/04/25 08:15 03/04/25 08:22 Temperature Pulse Rate 96 92 Respiratory Rate 20 20 Blood Pressure Pulse Oximetry 92 Oxygen Delivery Nasal Cannula Oxygen Flow Rate 3 Fraction of Inspired Oxygen Intake/Output Intake/Output: Intake & Output 03/01/25 03/02/25 03/03/25 03/04/25 23:59 23:59 23:59 23:59 Intake Total 1270 1710 1760 470 Output Total 300 Balance 970 1710 1760 470 Meds/Results Medications: Active Medications Generic Name Dose Route Start Last Admin Trade Name Freq PRN Reason Stop Dose Admin Albuterol/Ipratropium 3 ml 03/01/25 08:00 03/04/25 08:15 Ipratropium 0.5 Mg/Albuterol Sulfate 2.5 Mg (Base) Ampul.Neb 3 Ml INHALATION 3 ml Q6HRT LOVELY Administration Atorvastatin Calcium 40 mg 03/01/25 21:00 03/03/25 20:59 Atorvastatin 40 Mg Tablet BY MOUTH 40 mg HS LOVELY Administration Buspirone HCl 10 mg/ Buspirone 15 mg 03/01/25 23:15 03/04/25 08:45 HCl 5 mg PO 15 mg BID LOVELY Administration Diltiazem HCl 120 mg 03/03/25 21:00 03/03/25 20:59 Diltiazem Hcl Cd 120 Mg Cap.24hr BY MOUTH 120 mg HS LOVELY Administration Ergocalciferol 1,250 mcg 03/07/25 09:00 Ergocalciferol (Vitamin D2) 1,250 Mcg (50,000 Units) Capsule PO [id number] LOVELY Ferrous Sulfate 325 mg 03/01/25 21:00 03/03/25 20:58 Ferrous Sulfate 325 Mg Tablet BY MOUTH 325 mg HS LOVELY Administration Levofloxacin/Dextrose 750 mg in 150 mls @ 100 mls/hr 03/03/25 09:00 03/03/25 10:37 Levaquin 750 Mg/D5w 150 Ml IVPB Infused Q48H LOVELY Infusion Doxycycline Hyclate 100 mg/ 100 mls @ 100 mls/hr 03/02/25 20:00 03/04/25 08:44 Sodium Chloride IVPB 100 mls/hr Q12H LOVELY Administration Cefepime HCl 2 gm/ Sodium 50 mls @ 100 mls/hr 03/02/25 21:00 03/04/25 05:49 Chloride IVPB Infused Q8H LOVELY Infusion Vancomycin HCl 1,250 mg in 250 mls @ 166.667 mls/hr 03/03/25 22:00 03/03/25 23:27 Vancomycin 1,250 Mg/Ns 250 Ml IVPB 125 mls/hr Q24H LOVELY Administration Levothyroxine Sodium 88 mcg 03/01/25 06:30 03/04/25 05:19 Levothyroxine Sodium 88 Mcg Tablet BY MOUTH 88 mcg DAILY@0630 LOVELY Administration Lidocaine 1 patch 03/01/25 17:17 Lidocaine 5% Patch TOPICAL DAILY PRN PAINFUL AREA Lisinopril 10 mg 03/01/25 21:00 03/01/25 21:18 Lisinopril 10 Mg Tablet BY MOUTH 10 mg On Hold: 03/02/25 09:15 HS LOVELY Administration Loratadine 10 mg 03/01/25 21:00 03/03/25 20:58 Loratadine 10 Mg Tablet PO 10 mg HS LOVELY Administration Montelukast Sodium 10 mg 03/01/25 21:00 03/03/25 20:58 Montelukast Sodium 10 Mg Tablet BY MOUTH 10 mg HS LOVELY Administration Pantoprazole Sodium 40 mg 03/01/25 09:00 03/04/25 08:45 Pantoprazole 40 Mg Tablet PO 40 mg Q12HR LOVELY Administration Perflutren Lipid Microsphere 0 ml 03/01/25 12:30 Perflutren Lipid Microspheres 1.5 Ml Vial Diluted To 10 Ml Total Volume IV PUSH 03/04/25 12:30 ONCE PRN adequate visualization Protocol Potassium Chloride 20 meq 03/01/25 09:00 03/04/25 08:46 Potassium Chloride 20 Meq Er Tablet PO 20 meq DAILY LOVELY Administration Prednisone 40 mg 03/02/25 10:35 03/04/25 08:45 Prednisone 20 Mg Tablet PO 40 mg DAILY@0800 LOVELY Administration Roflumilast 500 mcg 03/01/25 09:00 03/04/25 08:46 Roflumilast 500 Mcg Tablet PO 500 mcg DAILY LOVELY Administration Ropinirole HCl 1 mg 03/01/25 21:00 03/03/25 20:58 Ropinirole Hcl 1 Mg Tablet BY MOUTH 1 mg QHS LOVELY Administration Topiramate 50 mg 03/01/25 21:00 03/04/25 08:45 Topiramate 25 Mg Tablet PO 50 mg Q12HR LOVELY Administration Valacyclovir HCl 500 mg 03/01/25 09:00 03/04/25 08:45 Valacyclovir Hcl 500 Mg Tablet PO 500 mg DAILY LOVELY Administration Venlafaxine HCl 150 mg 03/01/25 21:00 03/03/25 20:59 Venlafaxine Hcl Xr 75 Mg Cap.Er.24h PO 150 mg HS LOVELY Administration Radiology Results: ITS Impressions Venous Doppler Study 03/01/25 17:01 IMPRESSION: 1. No deep venous thrombosis. Chest CTA 03/01/25 17:05 IMPRESSION: 1. No evidence of pulmonary emboli. Significant emphysematous changes of lungs. Chest X-Ray 03/03/25 09:21 IMPRESSION: 1. No acute cardiopulmonary findings given portable technique. Labs Labs: Laboratory Results - last 24 hr 03/03/25 03/04/25 05:31 05:22 WBC 5.9 RBC 3.27 L Hgb 12.1 Hct 33.8 L MCV 103.4 H MCH 37.0 H D MCHC 35.8 RDW 16.6 H Plt Count 199 MPV 9.7 Sodium 140 Potassium 4.0 Chloride 108 H Carbon Dioxide 28 Anion Gap 4 BUN 14 Creatinine 0.71 Estim Creat Clear Calc 52 Estimated GFR > 60 Glucose 88 Calcium 8.6 Procalcitonin 0.1
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
[2025-03-04 13:51] VITALS: BP 125/55; PULSE 98; RESP 16; TEMP 35.6; O2SAT 94
--- NOTE | 2025-03-05 08:40 | PC.NURSE ---
Urine cx growing <10,000 cfu/ml of bacteria per ml of urine.
--- NOTE | 2025-03-12 07:56 | PC.NURSE ---
Blood cx show no growth.
== END 2025-03-04 16:20 | disposition home or self-care (01) | DRG 191 ==
LOC: ANHED 21:23 → ANH3MEDSUR 03-01 01:00
PROVIDERS: Internal Medicine Pulmonary Disease; Nurse Practitioner; Admitting Provider General Practice; Emergency Provider Student in an Organized Health Care Education/Training Program; PCP Internal Medicine; Visit Provider Nurse Practitioner Gerontology
DX: J44.1 Chronic obstructive pulmonary disease with (acute) exacerbation (principal); J96.11 Chronic respiratory failure with hypoxia; Z99.81 Dependence on supplemental oxygen; T74.91XD Unspecified adult maltreatment, confirmed, subsequent encounter; E03.9 Hypothyroidism, unspecified; E78.5 Hyperlipidemia, unspecified; F32.9 Major depressive disorder, single episode, unspecified; F41.9 Anxiety disorder, unspecified; G47.33 Obstructive sleep apnea (adult) (pediatric); I10 Essential (primary) hypertension; J43.2 Centrilobular emphysema; K21.9 Gastro-esophageal reflux disease without esophagitis; Z85.42 Personal history of malignant neoplasm of other parts of uterus; Z87.891 Personal history of nicotine dependence; Z88.0 Allergy status to penicillin
CPT/HCPCS: 36415; 36600; 71045; 71046; 71275; 80048; 80053; 81001; 82103; 82104; 82805; 83605; 83880; 84145; 84443; 84484; 85018; 85025; 85027; 85380; 86140; 86738; 87040; 87086; 87449; 87641; 87899; 93005; 93306; 93970; 94618; 94640; 94762; 99285; A9270; G0378; J0692; J0696; J1956; J2919; J3373; J7030; J7040; J7512; Q9967

== ENCOUNTER 2025-03-17 13:35 | Outpatient (CLI) | payer MEDICARE, MEDICAID, SELFPAY ==
--- NOTE | ~2025-03-17 | MR_ITS ---
EXAMINATION: MR abdomen wo/w con DATE: 03/17/2025 15:26 INDICATION: Cirrhosis of the liver. TECHNIQUE: Magnetic resonance imaging (MRI) of the abdomen was performed without and with 13 mL MultiHance intravenous contrast. COMPARISON: Chest CT 03/17/2025, PET/CT 09/25/21 FINDINGS: The liver, gallbladder, spleen, pancreas, and adrenal glands are normal. There is a 5.9 cm cyst in right kidney. Left kidney is normal. There are no dilated loops of bowel. There is a diverticulum of the third portion of the duodenum. There is a right-sided lumbar hernia containing nonobstructed small bowel. There is a 4.2 cm cyst in the right adnexa, stable from 09/25/2021. IMPRESSION: 1. Normal liver. 2. Right-sided lumbar hernia containing nonobstructed small bowel. 3. Stable right adnexal cyst, likely benign. Consider pelvis ultrasound in one year. Reviewed, dictated and finalized at location E. TY [place]
== END 2025-03-17 13:36 | disposition home or self-care (01) ==
PROVIDERS: PCP Internal Medicine; Visit Provider Internal Medicine Gastroenterology
DX: R74.8 Abnormal levels of other serum enzymes (principal); K45.8 Other specified abdominal hernia without obstruction or gangrene; N83.291 Other ovarian cyst, right side
CPT/HCPCS: 74183; A9577

== ENCOUNTER 2025-03-17 19:51 | Observation (INO) | payer MEDICARE, MEDICAID, SELFPAY ==
--- NOTE | ~2025-03-17 | XR_ITS ---
Examination: XR chest 1V portable Clinical History: dyspnea Comparison: 03/03/2025 Technique: Portable AP Findings: Heart size normal. Chronic emphysema and interstitial changes. No acute bony abnormality. IMPRESSION: 1. No acute cardiopulmonary findings given portable technique. Reviewed, dictated and finalized at location R. IT UNION FIELD EXAMINER
--- NOTE | ~2025-03-17 | CT_ITS ---
EXAMINATION: CTA chest PE protocol DATE: 03/17/2025 23:27 INDICATION: Shortness of breath. TECHNIQUE: Computed tomography angiography (CTA) of the chest was performed with 100 mL Omnipaque-350 intravenous contrast timed to evaluate the pulmonary arteries. Coronal maximum intensity projection 3D-reconstructions were created by the technologist. Automated exposure control and iterative reconstruction technique were employed. The dose-length product was 275.75 mGy-cm. COMPARISON: Chest CT 03/01/2025, 08/02/2023 FINDINGS: There is severe emphysema. There is mild atelectasis bilaterally. There is a 5 mm nodule in left lower lobe, stable from 08/02/2023, likely benign. No pleural effusion. The heart size is normal. There is a trace pericardial effusion. There is a 4.5 cm cyst in right kidney. There is no pulmonary embolus. There is severe cervical and thoracic spondylosis. IMPRESSION: 1. No pulmonary embolus. 2. Severe emphysema. Reviewed, dictated and finalized at location E. TRICIAN SECOND
[2025-03-17 19:45] VITALS: BP 126/85; PULSE 111; RESP 28; TEMP 36.8; O2SAT 90
--- NOTE | 2025-03-17 20:04 | ECG_ITS ---
Test Date: 2025-03-17 20:06:27 Measurements Intervals Wana Rate: 111 P: 63 NV: 155 QRS: 83 QRSD: 79 T: 72 QT: 346 QTc: 472 Interpretive Statements SINUS TACHYCARDIA WITH OCCASIONAL ECTOPIC PREMATURE COMPLEXES POSSIBLE RIGHT VENTRICULAR CONDUCTION DELAY BORDERLINE ST-T WAVE ABNORMALITY- ANTERIOR LEADS BASELINE ARTIFACT- I, II, III, AVR, AVL ,AVF, V1-V6 ABNORMAL ECG Compared to ECG 02/28/2025 21:58:47 HEART RATE HAS INCREASED Electronically Signed On 03-18-2025 09:18:57 DIRECTOR OF GLOBAL TALENT by Freedom Mendoza D.O.
--- NOTE | 2025-03-17 20:31 | ED.SOB ---
HPI - SOB/Dyspnea General Chief Complaint: Shortness of Breath/Dyspnea Stated Complaint: sob Time Seen by Provider: 03/17/25 20:02 Source: patient Mode of arrival: ambulatory Limitations: no limitations History of Present Illness HPI Narrative: patient is a 74-year-old female presents to the emergency department complaining of difficulty breathing. Patient notes that she was admitted to the hospital over the past month and was on antibiotics for pneumonia and had her oxygen increased 2 5 L while walking and 3 L at night and no oxygen when at rest. Patient notes that she completed antibiotics and steroids a few days ago and it seemed like she was getting a little bit better but now feels like she is getting worse. Patient notes that she feels more fatigued and tired and short of breath. Patient notes her cough has chronic and overall unchanged in the sputum amount and frequency and color. Patient denies any known fevers. Patient denies any chest pain or abdominal pain. Patient denies any nausea or vomiting or urinary discomfort or melena or hematochezia. Related Data Home Medications ?Medication ?Instructions ?Recorded ?Confirmed ?Last Taken ?Type immune glob G 10 gram/100 100 ml subcut WEEKLY 03/17/20 03/07/25 02/22/25 History mL(10%)-gly-IgA ave 46 mcg/mL 100 mL injection soln (Gamunex-C) lidocaine 5 % topical patch 1 patch topical DAILY PRN 03/07/25 03/07/25 Unknown History Allergies Allergy/AdvReac Type Severity Reaction Status Date / Time Penicillins Allergy Unknown Swelling Verified 03/07/25 13:10 Sulfa (Sulfonamide Allergy Unknown Rash Verified 03/07/25 13:10 Antibiotics) Review of Systems Review of Systems: A 10 system review of systems was completed on the patient and is negative except for what is stated in the HPI. Nursing and ancillary documentation was reviewed. REPLACED BY [facility] Past Medical History Medical History Chronic nausea Chronic hypoxic respiratory failure, on home oxygen therapy 2 L at rest 4 L with activity Osteopenia Alternating constipation and diarrhea Herpes simplex type 2 infection Family history of aneurysm of blood vessel of brain Overweight Postmenopausal Former smoker Cervical disc disorder with radiculopathy Chronic migraine Iron deficiency Postmenopausal Pre-diabetes Pulmonary nodule Vitamin D deficiency, unspecified Arthritis of wrist, right Bilateral primary osteoarthritis of knee CVID (common variable immunodeficiency) Eczema Uterine cancer Anxiety Depression Hypothyroid GERD (gastroesophageal reflux disease) Ulcer Hiatal hernia Chronic bronchitis HTN (hypertension) Hyperlipidemia Restless leg syndrome Seasonal allergies Chronic obstructive pulmonary disease Chronic respiratory failure with hypoxia Dyslipidemia Essential hypertension Mixed hyperlipidemia (10/28/18) Obstructive sleep apnea Tachycardia Chronic with baseline heart rate 90s to low 100s Surgical History Surgical History History of hysterectomy History of tonsillectomy History of carpal tunnel release Family History Family History Mother Family history of chronic obstructive pulmonary disease Hypertension Chronic obstructive pulmonary disease Sibling Family history of malignant neoplasm Asthma Grandparent Acute myocardial infarction Social History Social History (Updated 03/01/25 @ 04:18 by Kristin Cifuentes APRN) Social History: 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 She smoked at least 1 pack of cigarettes per day from the time she was a teenager until approximately 2008. She denies any significant alcohol or illicit substance use. She owns her own home and her adult son, [id number] live with her. Her adult grandchild no longer lives with her. Code status: Full code (patient would not want tracheostomy or feeding tube but is okay with short-term ventilation. Surrogate decision maker: Nani Francisco (sister) Smoking packs per day: 1 Smoking cigarettes per day: 20.0 Years smoked: 40 Smoking pack-years: 40.00 Smoking status: Former smoker Tobacco type: cigarettes Second hand tobacco smoke exposure: Yes Smoking end date: 04/12/08 Alcohol intake: former Substance use: never Substance use type: does not use Lack of Transportation: No Lack of Food: Never True Current Housing: I Have Housing Concerned About Future Housing: No Difficulty Paying Gas/Electric Bills: No Difficulty Paying for Meds: No Currently Unemployed: No Education: High School Diploma/GED Difficulty w/ Childcare or Family Care: No Living arrangements: alone Occupation/Education: occupation 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 Gender identity (if verbalized by the patient): Female Spiritual care concerns: No Agree to blood products: No Exam Narrative: CONST: Mild acute respiratory distress. On nasal cannula supplemental oxygen. HENMT: Head is normocephalic and atraumatic. Tacky mucous membranes. No posterior oropharynx erythema. EYES: No scleral icterus. No conjunctival injection or pallor. PERRL. NECK: No meningeal signs. RESP: Able to speak in full sentences. Tachypnea. Diffusely diminished breath sounds, moderately prolonged expiratory phase. CARDIO: Tachycardic rate. Regular rhythm. 2+ DP and radial pulses bilaterally. GI: Nondistended. No tenderness to palpation. Soft. : No CVA tenderness to palpation. SKIN: No rashes or lesions noted on exposed skin. NEURO: Oriented x3. Moves all extremities. EXTREM/MSK/BACK: No pedal edema. PSYCH: Normal affect. Course Vital Signs Vital signs: Vital Signs Temperature 98.3 F 03/17/25 19:45 Pulse Rate 111 H 03/17/25 19:45 Respiratory Rate 28 H 03/17/25 19:45 Blood Pressure 126/85 03/17/25 19:45 Pulse Oximetry 90 03/17/25 19:45 Oxygen Delivery Room Air 03/17/25 19:45 Temperature 98.3 F 03/17/25 19:45 Pulse Rate 114 H 03/18/25 00:05 Respiratory Rate 24 H 03/18/25 00:05 Blood Pressure 104/75 03/18/25 00:05 Pulse Oximetry 97 03/18/25 00:05 Oxygen Delivery Nasal Cannula 03/17/25 21:06 Oxygen Flow Rate 2 03/17/25 21:06 [facility] Narrative Medical decision making narrative: Patient presents with the above complaint. Initial vitals are remarkable for tachycardia and tachypnea and hypoxia. Physical examination as noted above. Plan discussed: laboratory analysis, EKG, chest x-ray, breathing treatments, Solu-Medrol, blood cultures, IV fluids, continuous cardiac monitoring, continuous pulse oximetry. CT of the chest preliminary findings radiology interpretation is evaluation of the pulmonary artery tree is limited with diffuse respiratory artifact and suboptimal faint heterogenous enhancement pattern. No evidence for large/central pulmonary emboli. Severe distal subsegmental branches are of limited diagnostic quality. Centrilobular emphysema. New focal airspace consolidation when compared to the examination 03/03/2025 with minimal curvilinear changes at the right lung base adjacent to the elevated hemidiaphragm. Subsegmental changes in the medial aspect of the right middle lobe, stable. No pleural effusion or pneumothorax. The cardiac chambers are stable. The thoracic aorta is unremarkable. No new lymphadenopathy. Patient ordered antibiotics. I spoke with the hospitalist on-call who has accepted the patient for admission. Patient agrees with plan of care, informed of all results and diagnosis. Differential Diagnosis Differential Diagnosis: COPD exacerbation, pneumonia, pulmonary embolism, ACS, anemia, metabolic derangement, electrolyte derangement. Medical Records I have reviewed the following patient records and this information was taken into consideration when formulating the assessment and plan.: previous ER visits Lab Data MDM Lab Attestation statement: I personally reviewed the patient's lab results. Lab results narrative: CBC is without any significant abnormalities. Coags are within normal limits. VBG reveals a pH of 7.444, pCO2 of 34.3, bicarb 23. Comprehensive metabolic panel reveals a sodium 135, GFR 56, glucose 134. Troponin is less than 0.012 and repeat troponin is less than 0.012. CRP is less than 0.5. BNP is 99. Magnesium is 1.6. Lactic acid is 1.5. Lipase is 81. Procalcitonin is 0.1. TSH is 8.12 with a free T4 of 0.91 and a total T3 1.08. Urinalysis reveals high specific gravity of 1.037, 2+ leukocyte esterase, 21-50 wbc's, no bacteria seen. COVID and influenza and RSV testing are negative. 03/17/25 21:02 03/17/25 21:02 Labs: Lab Results 03/17/25 03/17/25 Range/Units 21:02 23:48 WBC 8.1 (4.5-10.0) K/mm3 RBC 3.62 L (4.2-5.4) M/mm3 Hgb 12.4 (12.0-15.0) g/dL Hct 34.4 L (37.0-47.0) % MCV 95.0 (80-100) fl MCH 34.3 H (26-34) pg MCHC 36.0 (32-36) g/dl RDW 13.5 (11.5-14.5) % Plt Count 207 (150-375) k/mm3 MPV 9.9 (7.4-10.4) fl Immature Gran % (Auto) 0.5 (0-0.5) % Neut % (Auto) 87.8 H (45.5-73.1) % Lymph % (Auto) 6.7 L (18.3-44.2) % Bacon % (Auto) 4.1 (2.6-8.5) % Eos % (Auto) 0.7 (0-4.4) % Baso % (Auto) 0.2 (0.2-1.2) % Lymph # (Auto) 0.54 L (0.9-3.2) K/mm3 Bacon # (Auto) 0.3 (0.1-0.6) K/mm3 Eos # (Auto) 0.1 (0-0.3) K/mm3 Baso # (Auto) 0.0 (0.0-0.1) K/mm3 Abs Immat Gran (auto) 0.04 H (0.00-0.031) K/mm3 Absolute Neuts (auto) 7.1 H (1.3-6.7) K/mm3 Absolute Nucleated RBC 0.000 (0.0-0.012) K/mm3 Nucleated RBC % 0.0 (0.0-0.2) % PT 13.7 (11.1-14.7) Seconds INR 1.0 APTT 30.2 (22.3-36.8) Seconds Sodium 135 L (137-145) mmol/L Potassium 3.5 (3.4-5.0) mmol/L Chloride 105 (98-107) mmol/L Carbon Dioxide 25 (22-30) mmol/L Anion Gap 5 (4-12) mmol/L BUN 15 (7-17) mg/dL Creatinine 0.98 (0.7-1.0) mg/dL Estim Creat Clear Calc Not Reportable Estimated GFR 56 L (59 - ) Glucose 134 H (65-110) mg/dL Lactic Acid 1.5 (0.7-2.0) mmol/L Calcium 9.1 (8.4-10.2) mg/dL Magnesium 1.6 (1.6-2.3) mg/dL Total Bilirubin 0.3 (0.2-1.3) mg/dL AST 22 (14-36) U/L ALT 19 (6-35) U/L Alkaline Phosphatase 123 (38-126) U/L Troponin I < 0.012 < 0.012 (0.000-0.034) ng/mL C-Reactive Protein < 0.5 (<1.0) mg/dL NT-Pro-B Natriuret Pep 99 (19.9-100) pg/mL Total Protein 6.6 (6.3-8.2) g/dL Albumin 3.6 (3.5-5.1) g/dL Lipase 81 (23-300) U/L Procalcitonin 0.1 ng/mL TSH (Reflex) 8.120 H (0.465-4.68) uIU/mL Free T4 0.91 (0.78-2.19) ng/dL Total T3 1.08 (0.82-1.58) NG/ML Urine Color Yellow (Yellow) Urine Appearance Clear (Clear) Urine pH 6.0 (5.0-9.0) Ur Specific [place] 1.037 H (1.001-1.035) Urine Protein Negative (Negative) mg/dL Urine Glucose (UA) Negative (Negative) mg/dL Urine Ketones Negative (Negative) mg/dL Ur Blood (Man) Negative (Negative) Urine Nitrate Negative (Negative) Urine Bilirubin Negative (Negative) Urine Urobilinogen 0.2 (<2.0) mg/dL Leukocyte Esterase Rfl 2+ H (Negative) DAWIT/UL Urine RBC 0-2 (0-2) /hpf Urine WBC 21-50 H (0-3) /hpf Ur Squamous Epith Cells None seen (Few) /hpf Urine Bacteria None seen /hpf Urine Casts 0-2 Influenza A (RT-PCR) Negative (Negative) Influenza B (RT-PCR) Negative (Negative) RSV (RT-PCR) Negative (Negative) SARS-CoV-2 RNA (RT-PCR) Negative (Negative) ABG Data ABG results: 03/17/25 21:02 VBG pH 7.444 H* VBG pCO2 34.3 L VBG pO2 73.1 H VBG HCO3 23.0 L O2 Delivery Device Nasal cannula O2 Liters/Min 2.0 FiO2 24 Imaging Data Attestation: I personally reviewed and interpreted this imaging study as follows: My impression: Pneumonia. ECG Data EKG #1: Attestation: I personally reviewed and interpreted this ECG as follows: ECG completion date: 03/17/25 ECG completion time: 20:06 Interpretation: rate of 111, rhythm is sinus tachycardia with occasional ectopic premature complexes, T-wave inversion in leads V2, V3; T-wave flattening in V4; no ST elevations or depressions, baseline artifact present limiting overall EKG interpretation. Discharge Plan Discharge Clinical Impression: COPD exacerbation, Sepsis Pneumonia Qualifiers: Pneumonia type: due to unspecified organism Laterality: bilateral Lung location: lower lobe of lung Qualified Code(s): J18.9 - Pneumonia, unspecified organism Patient Disposition: Still a Patient Condition: Guarded Prognosis Patient Language: Ugandan Prescriptions: No Action albuterol sulfate [Ventolin HFA] 90 mcg/actuation HFA aerosol inhaler 2 puff inhalation QID PRN (Reason: shortness of breath or wheezing) Qty: 8.5 0RF ProAir RespiClick 90 mcg/actuation aerosol powdr breath activated 1 inh inhalation Q4-6H PRN (Reason: shortness of breath or wheezing) 30 Days Qty: 1 2RF valacyclovir 500 mg tablet 500 mg PO DAILY Qty: 30 5RF lidocaine 5 % adhesive patch,medicated 1 patch topical DAILY PRN Rx Instructions: leave on most painful area for up to 12 hrs Gamunex-C 10 gram/100 mL (10 %) solution 100 ml subcut WEEKLY Patient Comments: patient is taking every now instead of wednesday Rx Instructions: TAKES ON TUESDAYS ondansetron 4 mg tablet,disintegrating See Rx Instructions .ROUTE .COMPLEX Qty: 60 1RF Dose Instruction: DISSOLVE 1 TABLET ON THE TONGUE EVERY 8 HOURS NEEDED FOR NAUSEA/VOMITING Rx Instructions: DISSOLVE 1 TABLET ON THE TONGUE EVERY 8 HOURS NEEDED FOR NAUSEA/VOMITING cetirizine 10 mg tablet See Rx Instructions .ROUTE .COMPLEX Qty: 90 1RF Dose Instruction: TAKE 1 TABLET BY MOUTH EVERY DAY FOR ALLERGIES Rx Instructions: TAKE 1 TABLET BY MOUTH EVERY DAY FOR ALLERGIES roflumilast 500 mcg tablet See Rx Instructions .ROUTE .COMPLEX Qty: 90 3RF Dose Instruction: TAKE 1 TABLET BY MOUTH DAILY X 90 DAYS Rx Instructions: TAKE 1 TABLET BY MOUTH DAILY X 90 DAYS albuterol sulfate 90 mcg/actuation HFA aerosol inhaler See Rx Instructions .ROUTE .COMPLEX Qty: 8.5 2RF Dose Instruction: INHALE 1-2 PUFFS BY MOUTH EVERY 4 TO 6 HOURS NEEDED FOR SHORTNESS OF BREATH Rx Instructions: INHALE 1-2 PUFFS BY MOUTH EVERY 4 TO 6 HOURS NEEDED FOR SHORTNESS OF BREATH fluticasone propion-salmeterol 250-50 mcg/dose blister with device See Rx Instructions .ROUTE .COMPLEX Qty: 180 3RF Dose Instruction: INHALE 1 PUFF BY MOUTH EVERY 12 HOURS- RINSE AND SPIT AFTER USE Rx Instructions: INHALE 1 PUFF BY MOUTH EVERY 12 HOURS- RINSE AND SPIT AFTER USE levothyroxine 88 mcg tablet See Rx Instructions .ROUTE .COMPLEX Qty: 90 1RF Dose Instruction: TAKE 1 TABLET BY MOUTH EVERY DAY Rx Instructions: TAKE 1 TABLET BY MOUTH EVERY DAY tiotropium bromide [Spiriva with HandiHaler] 18 mcg capsule, w/inhalation device 18 mcg inhalation DAILY Qty: 30 11RF Rx Instructions: INHALE THE CONTENTS OF 1 CAPSULE BY MOUTH ONCE DAILY buspirone 15 mg tablet See Rx Instructions .ROUTE .COMPLEX Qty: 180 1RF Dose Instruction: TAKE 1 TABLET BY MOUTH TWICE A DAY Rx Instructions: TAKE 1 TABLET BY MOUTH TWICE A DAY ergocalciferol (vitamin D2) 1,250 mcg (50,000 unit) capsule 1,250 mcg PO [id number] Qty: 6 3RF Rx Instructions: NEEDS ON WEDNESDAY ferrous sulfate 325 mg (65 mg iron) tablet See Rx Instructions .ROUTE .COMPLEX Qty: 90 1RF Dose Instruction: TAKE 1 TABLET BY MOUTH EVERY DAY Rx Instructions: TAKE 1 TABLET BY MOUTH EVERY DAY ropinirole 1 mg tablet See Rx Instructions .ROUTE .COMPLEX Qty: 90 3RF Dose Instruction: TAKE 1 TABLET BY MOUTH 1-2 HOURS BEFORE BEDTIME Rx Instructions: TAKE 1 TABLET BY MOUTH 1-2 HOURS BEFORE BEDTIME diltiazem HCl 120 mg capsule,extended release 24hr See Rx Instructions .ROUTE .COMPLEX Qty: 90 2RF Dose Instruction: TAKE 1 CAPSULE BY MOUTH EVERY DAY Rx Instructions: TAKE 1 CAPSULE BY MOUTH EVERY DAY levalbuterol HCl 1.25 mg/3 mL solution for nebulization See Rx Instructions .ROUTE .COMPLEX Qty: 810 1RF Dose Instruction: INHALE THE CONTENTS OF 1 VIAL VIA NEBULIZER 4 TIMES DAILY NEEDED FOR SHORTNESS OF BREATH/WHEEZING Rx Instructions: INHALE THE CONTENTS OF 1 VIAL VIA NEBULIZER 4 TIMES DAILY NEEDED FOR SHORTNESS OF BREATH/WHEEZING Prolia 60 mg/mL syringe 60 mg subcut [id number] Qty: 1 1RF Rx Instructions: DUE IN 2024 venlafaxine 150 mg capsule,extended release 24hr 150 mg PO DAILY Qty: 90 1RF Rx Instructions: TAKE 1 CAPSULE BY MOUTH EVERY DAY omeprazole 40 mg capsule,delayed release(DR/EC) 40 mg PO DAILY Qty: 90 1RF Rx Instructions: TAKE 1 CAPSULE BY MOUTH EVERY DAY topiramate [Topamax] 50 mg tablet 50 mg PO BID Qty: 180 2RF montelukast 10 mg tablet See Rx Instructions .ROUTE .COMPLEX Qty: 90 2RF Dose Instruction: TAKE 1 TABLET BY MOUTH EVERY DAY Rx Instructions: TAKE 1 TABLET BY MOUTH EVERY DAY atorvastatin 40 mg tablet See Rx Instructions .ROUTE .COMPLEX Qty: 90 2RF Dose Instruction: TAKE 1 TABLET BY MOUTH EVERY DAY Rx Instructions: TAKE 1 TABLET BY MOUTH EVERY DAY potassium chloride 20 mEq tablet extended release 20 meq PO DAILY Qty: 90 2RF lisinopril 10 mg tablet See Rx Instructions .ROUTE .COMPLEX Qty: 90 3RF Dose Instruction: TAKE 1 TABLET BY MOUTH EVERY DAY Rx Instructions: TAKE 1 TABLET BY MOUTH EVERY DAY Follow-up/Referrals: Efe Ladd DO [Primary Care Provider, Internal Medicine] Time of Disposition: 01:18
--- OUTSIDE RECORDS SUMMARY | 2025-03-17 20:36 | XMS_ITS | Clinical Summary ---
Author Organization [facility] Address [address] [place] [address] Care Team Providers Care Airborne Sensor Specialist Name Role Phone Sonia Ugalde NP Primary Care Provider [phone] Allergies Active Allergy Reactions Criticality Noted Date Comments Penicillins Swelling 05/12/2022 Sulfa Antibiotics Rash Low 05/12/2022 Medications acetaminophen (TYLENOL) 325 MG tabletIndications:Pa in Take 650 mg by mouth every 6 (six) hours. Indications: Pain Active ipratropium-albutero l (DUONEB) 0.5-2.5 (3) MG/3ML SolutionIndications: COPD, surveillance Take by nebulization every 6 (six) hours as needed. Indications: COPD, surveillance Active busPIRone (BUSPAR) 10 MG tabletIndications:De pressed Mood Take 15 mg by mouth 2 (two) times daily. Indications: Lowered Mood Active alendronate (FOSAMAX) 70 MG tabletIndications:Ad vanced Bone Age Take 70 mg by mouth every 7 days. Indications: Advanced Bone Age Active atorvastatin (LIPITOR) 40 MG tabletIndications:Hy perlipidemia Take 40 mg by mouth nightly at bedtime. Indications: High Amount of Fats in the Blood Active cetirizine (ZYRTEC) 10 MG tabletIndications:Rh initis Take 10 mg by mouth daily. Indications: Nose Inflammation Active vitamin D2, ergocalciferol, (DRISDOL) 17066 UNITS capsuleIndications:s upplement Take 50,000 Units by mouth every 7 days. Indications: supplement Active ferrous sulfate, 65 mg elemental, 325 (65 FE) MG tabletIndications:Ir on Deficiency Take 325 mg by mouth daily with breakfast. Indications: Iron Deficiency Active guaiFENesin ER (MUCINEX) 600 MG 12 hr tabletIndications:Co ngestion of Upper Airway (Inactive) Take 600 mg by mouth every 12 (twelve) hours as needed for Congestion. Indications: Congestion of Upper Airway Active levothyroxine (SYNTHROID) 88 MCG tabletIndications:Hy pothyroidism Take 88 mcg by mouth every morning. Indications: Underactive Thyroid Active fluticasone-salmeter ol (ADVAIR DISKUS) 250-50 MCG/ACT inhalerIndications:C OPD, surveillance Inhale 1 puff into the lungs 2 (two) times daily. Indications: COPD, surveillance Active levalbuterol (XOPENEX) 1.25 MG/3ML nebulizer solutionIndications: COPD, surveillance Take 1 ampule by nebulization every 4 (four) hours as needed for Wheezing. Indications: COPD, surveillance Q4-6h prn Active lisinopril (PRINIVIL) 10 MG tabletIndications:Hy pertension Take 10 mg by mouth daily. Indications: High Blood Pressure Disorder Active montelukast (SINGULAIR) 10 MG tabletIndications:As thma Take 10 mg by mouth nightly at bedtime. Indications: Asthma Active omeprazole (PRILOSEC) 40 MG capsuleIndications:N onerosive Gastroesophageal Reflux Disease Take 40 mg by mouth daily. Indications: Nonerosive GERD Active potassium chloride CR (K-TAB) 10 MEQ Tab CR tabletIndications:Hy pokalemia Take 20 mEq by mouth daily. Indications: Low Amount of Potassium in the Blood Active roflumilast (DALIRESP) 500 MCG TabIndications:COPD, surveillance Take 500 mcg by mouth daily. Indications: COPD, surveillance Active rOPINIRole (REQUIP) 1 MG tabletIndications:Re stless Leg Syndrome Take 1 mg by mouth nightly at bedtime. Indications: Restless Leg Syndrome 05/21/19 23 Active venlafaxine XR (EFFEXOR-XR) 150 MG 24 hr capsuleIndications:D epression Take 150 mg by mouth daily. Indications: Depression Active SUMAtriptan (IMITREX) 50 MG tabletIndications:Mi graine Prophylaxis Take 50 mg by mouth daily as needed for Migraine. Indications: Treatment to Prevent Migraine Headaches Max of 4 tablets (200 mg) in 24 hours. Active tiotropium (SPIRIVA) 18 MCG inhalation capsuleIndications:C OPD, surveillance Place 18 mcg into inhaler and inhale daily. Indications: COPD, surveillance Active dilTIAZem XR (DILACOR XR) 120 MG 24 hr capsuleIndications:H ypertension Take 120 mg by mouth daily. Indications: High Blood Pressure Disorder Active magnesium oxide (MAG-OX) 400 (240 Mg) MG tabletIndications:stevenson pplement Take 1 tablet (400 mg total) by mouth daily. 10 tablet 05/20/19 Active OXYGENIndications:CO PD, exacerbation 2 L/min by Nasal route continuous. 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 Gender Identity Not on file Sexual Orientation Not on file Last Filed Vital Signs Vital Sign Reading Time Taken Comments Blood Pressure 128/62 06/19/2022 1:04 PM AN[employer]AL [employer] SERVICE WORKER Pulse 97 06/19/2022 1:04 PM AN[employer]AL [employer] SERVICE WORKER Temperature 36.9 C (98.4 F) 06/19/2022 1:04 PM AN[employer]AL [employer] SERVICE WORKER Respiratory Rate 18 06/19/2022 1:04 PM AN[employer]AL [employer] SERVICE WORKER Oxygen Saturation 98% 06/19/2022 1:04 PM ANIMAL C[employer] SERVICE WORKER Inhaled Oxygen Concentration - - Weight 72.1 kg (158 lb 15.2 oz) 05/20/2022 3:35 AM ANIMAL C[employer] SERVICE WORKER Height 152.4 cm (5') 05/12/2022 8:20 PM ANIMAL C[employer] SERVICE WORKER Body Mass Index 31.04 05/12/2022 8:20 PM ANIMAL C[employer] SERVICE WORKER Plan of Treatment Health Maintenance Due Date [...] age to complete this topic Insurance [place] [address] [address] MEDICARE Advance Directives * Full Code (Latest Code Status on File) Date Activated Date Inactivated Comments 05/21/2022 10:44 AM * Full Code Date Activated Date Inactivated Comments 05/19/2022 12:18 PM 05/20/2022 12:53 PM Care Teams Airborne Sensor Specialist Relationship Specialty Start Date End Date Sonia Ugalde NP [address] [place] [address] PCP - General FAMILY [facility]IC[facility] SPORTS MEDICINE 05/12/22
--- OUTSIDE RECORDS SUMMARY | 2025-03-17 20:36 | XMS_ITS | Clinical Summary ---
Author Organization [facility] Address [address] [place] [address] Care Team Providers Care Leather Production Artisan Name Role Phone Chris Ugaldebecky Judge APRN-ACID TENDER Primary Care Provider + Source Comments [facility],non-owned Affiliates and Associated Physician Practices is amultiple site organization consisting of ambulatory clinics and hospital sitesin [place], [place], [place] and [place]. This disclosure is being madepursuant to the Care Everywhere program and may not contain all information available regarding this patient. Last updated 17.[facility] Allergies Active Allergy Reactions Criticality Noted Date [...] Pressure Disorder Active ergocalciferol (Drisdol) 1.25 MG (37556 UT) capsuleIndicatio ns:Vitamin D Deficiency Vitamin D2 [...] Major Depressive Disorder Active OxygenIndication s:copd/ sob Harmony 2 L/min into the nose continuous Reasons: [...] Refill [facility] [address] [place] [phone] Celio Villela MD Refill Request from [...] Recorded Patient Health Questionnaire-2 Score 0 08/07/2024 [facility] - [...] place to sleep or slept in a care home (including now)? 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 Gender Identity Not on file Sexual Orientation [...] Oxygen Concentration 32% 05/08/2022 9 :49 AM CONTRACT ASSOCIATE MANAGER Weight 69.9 kg (154 lb) 11/02/2022 5:50 AM CDT Height 152.4 cm (5') 11/02/2022 5:50 AM CDT Body Mass Index 30.08 11/02/2022 5:50 AM CDT Plan of Treatment Upcoming Encounters Date Type Department Care Team (Late st Contact Info) Description 08/14/2025 1:15 PM CDT Office Visit [facility] - [facility] [place] [id number] Bhaskar Mack MD [address] [address] Health Maintenance Due Date Last Done Comments [...] this topic Medical Devices Implanted Type Area Septic Tank Cleaner Device Identifier Shelf Expiration Date Model / Serial / Lot Screw 6.5mm 95mm Cassidy Lng Bone Sm Bone Implanted:Qty: 1 on 04/27/2022 by Luis Daniel Roca MD at [facility] [employer] [id number] / / Screw 6.5mm 110mm Cassidy Lng Bone Sm Bone Implanted:Qty: 1 on 04/27/2022 by Luis Daniel Roca MD at [facility] [employer] [id number] / / Screw Extfix 190mm 6mm [facility] Ss Spd Pnt Implanted:Qty: 1 on 04/27/2022 by Luis Daniel Roca MD at [facility] [employer] [id number] / / Head Fem +4mm 03/25 Tpr 36mm Hip Oxnm Implanted:Qty: 1 on 11/02/2022 by Bhaskar Mack MD at [facility] Right: Hip [employer] 06/21/2032 [id number] / / [id number] Shell Actb 52mm Hip 3 Hl Poly R3 Std Implanted:Qty: 1 on 11/02/2022 by Bhaskar Mack MD at [facility] Right: Hip [employer] 07/07/2032 [id number] / / [id number] Screw 6.5mm 25mm Hip Actb Canc Sphrcl Implanted:Qty: 1 on 11/02/2022 by Bhaskar Mack MD at [facility] Right: Hip [employer] 04/15/2032 [id number] / / [id number] Liner Actb R3 20d 52mm 36mm Xlpe Poly Implanted:Qty: 1 on 11/02/2022 by Bhaskar Mack MD at [facility] Right: Hip [employer] 03/09/2031 [id number] / / [id number] Stem Fem 136mm Hip 135d 2 03/25 Std Ofst Implanted:Qty: 1 on 11/02/2022 by Bhaskar Mack MD at [facility] Right: Hip [employer] 02/12/2028 [id number] / / [id number] Explanted Type Area Septic Tank Cleaner Device Identifier Shelf Expiration Date Model / Serial / Lot Screw 6.5mm 85mm Cassidy Lng Bone Sm Bone Explanted:Qty: 1 on 04/27/2022 by Luis Daniel Roca MD at [facility] [employer] [id number] / / Gd Pin Orth 450mm 3.2mm Cocr Xtd Acc Explanted:Qty: 2 on 04/27/2022 at [facility] [employer] [id number] / / Insurance MEDICAID - [place] HUMAN MEDICARE ADV HMO & PPO Member Subscriber Plan / Payer (Ef fective 2022-Present) Name:Aydin Jose R Relation to Subscriber:Self Name:Aydin Jose Payer ID:[id number] (NAIC) Type:Medicare-Managed Care Address: [place] [id number] MEDICAID OUT OF [facility] MEDICAID - [place] Member Subscriber Plan / Payer (Ef fective for All Dates) Name:Aydin Jose R Member ID:Not on file Relation to Subscriber:Self Name:Aydin Jose Payer ID:Not on file Group ID:Not on file Type:Medicaid [place] Address: [place] [id number] * Guarantor: REBECA,AYDIN Account Type Relation to Patient Date of Phone Billing Address Personal/Family [phone] [place] * Guarantor: REBECAAYDIN Account Type Relation to Patient Date of Phone Billing Address Personal/Family [facility] [place] [address] [place] - [place] [facility] [employer] LIB[employer]ARIAN LIABILITY MEDICAID - [place] Advance Directives * [...] 5:05 AM 05/12/2022 7:18 PM Care Teams Leather Production Artisan Relationship Specialty Start Date End Date Sonia Ugalde APRN-ACID TENDER [address] [place] [address] PCP - General Nurse Practitioner Family 04/24/22
--- OUTSIDE RECORDS SUMMARY | 2025-03-17 20:36 | XMS_ITS | Encounter Summary ---
Author Organization [facility] Address [address] [place] [address] Care Team Providers Care Product Promoter Sales Person Name Role Phone Sonia Ugalde NP Primary Care Provider [phone] Encounter Details Date Type Department Care Team (Late st Contact Info) Description 09/17/2018 Abstract [facility] [address] [place] [address] , Generic Conversion, Social History Tobacco Use Types Packs/Day Years Used Date Smoking Tobacco: Never Assessed Comments Unknown Sex and Gender Information Value Date Recorded Sex Assigned at Not on file Legal Sex Female 5:53 PM GUI DEVELOPER Gender Identity Not on file Sexual Orientation Not on file documented as of this encounter Plan of Treatment Not on file documented as of this encounter Visit Diagnoses Not on filedocumented in this encounter Care Teams Product Promoter Sales Person Relationship Specialty Start Date End Date Sonia Ugalde NP [address] [place] [address] PCP - General FAMILY MEDICINE SPORTS MEDICINE 05/12/22 documented as of this encounter
--- OUTSIDE RECORDS SUMMARY | 2025-03-17 20:36 | XMS_ITS | Clinical Summary ---
Author Organization [facility] Address [address] [place] [address] Phone Care Team Providers Care Protection Engineer Name Role Phone Sonia Ugalde APRN Primary Care Provider [phone] Allergies Active Allergy Reactions Criticality Noted Date [...] by mouth daily. Active ergocalciferol (VITAMIN D) 48214 UNIT Capsule Vitamin D2 1,250 mcg (50,000 [...] MEDICAID [place] MEDICARE C [employer] Care Teams Protection Engineer Relationship Specialty Start Date End Date Sonia Ugalde APRN [address] [place] [address] PCP - General Family Medicine 11/11/23
[2025-03-17] MEDS: SODIUM CHLORIDE 0.9% IV 1,000 ML 999 ML IV CONT (20:40)
[2025-03-17] MEDS: IPRATROPIUM 0.5 MG/ALBUTEROL SULFATE 2.5 MG (BASE) AMPUL.NEB 3 ML INHALATION ×3 (21:03→21:33)
[2025-03-17 21:06] VITALS: PULSE 114; O2SAT 95
[2025-03-17 21:07] VITALS: PULSE 114; RESP 16
[2025-03-17 21:12] LABS: Hematocrit 34.4 % (37.0-47.0); Hemoglobin 12.4 g/dL (12.0-15.0); Immature Granulocyte Percent A 0.5 % (0-0.5); Lymphocytes Absolute Auto 0.54 K/mm3 (0.9-3.2); Mean Corpuscular HGB Conc 36.0 g/dl (32-36); Mean Corpuscular Hemoglobin 34.3 pg (26-34); Mean Corpuscular Volume 95.0 fl (80-100); Nucleated Red Blood Cells Absolute Auto 0.000 K/mm3 (0.0-0.012); Nucleated Red Blood Cells Perc 0.0 % (0.0-0.2); Platelet Count Result 207 k/mm3 (150-375); Red Blood Count 3.62 M/mm3 (4.2-5.4); White Blood Count 8.1 K/mm3 (4.5-10.0)
--- NOTE | 2025-03-17 21:13 | PCRCNOTE ---
VBG delayed due to original sample being sent to lab. Tech had to collect a new sample.
[2025-03-17 21:24] LABS: INR 1.0; Prothrombin Time 13.7 Seconds (11.1-14.7)
[2025-03-17 21:25] LABS: Partial Thromboplastin Time 30.2 Seconds (22.3-36.8)
[2025-03-17 21:26] LABS: Alanine Aminotransferase 19 U/L (6-35); Albumin Level 3.6 g/dL (3.5-5.1); Alkaline Phosphatase 123 U/L (38-126); Anion Gap 5 mmol/L (4-12); Aspartate Amino Transferase 22 U/L (14-36); Bilirubin,Total 0.3 mg/dL (0.2-1.3); Blood Urea Nitrogen 15 mg/dL (7-17); CRP < 0.5 mg/dL (<1.0); Calcium 9.1 mg/dL (8.4-10.2); Carbon Dioxide 25 mmol/L (22-30); Chloride 105 mmol/L (98-107); Estimated Glomerular Filt Rate 56; Glucose 134 mg/dL (65-110); Lipase 81 U/L (23-300); Magnesium 1.6 mg/dL (1.6-2.3); Sodium 135 mmol/L (137-145); Total Protein 6.6 g/dL (6.3-8.2)
[2025-03-17 21:31] LABS: Fractional Inspired Oxygen 24 %; HCO3 VBG 23.0 mEq/l (24.0-30.0); PCO2 VBG 34.3 mmHg (42.0-48.0); PO2 VBG 73.1 mmHg (35.0-45.0)
[2025-03-17 21:32] LABS: Liters per Minute 2.0 LPM; pH VBG 7.444 (7.300-7.400)
[2025-03-17 21:33] LABS: Potassium 3.5 mmol/L (3.4-5.0)
[2025-03-17 21:34] LABS: NT Pro B Type Natriuretic Pept 99 pg/mL (19.9-100); Troponin I < 0.012 ng/mL (0.000-0.034)
[2025-03-17 21:38] LABS: Procalcitonin 0.1 ng/mL
[2025-03-17 21:46] LABS: Influenza A QL RT-PCR Negative (Negative); Influenza B QL RT-PCR Negative (Negative); RSV RNA, RT-PCR Negative (Negative); SARS-CoV-2 RNA PCR Negative (Negative)
[2025-03-17 22:02] LABS: Thyroid Stimulating Hormone Reflex 8.120 uIU/mL (0.465-4.68)
[2025-03-17 22:06] VITALS: PULSE 114; RESP 16
[2025-03-17 23:04] LABS: Free T4 Free Thyroxine Reflex 0.91 ng/dL (0.78-2.19)
[2025-03-17 23:57] LABS: Total Triiodothyronine (T3) 1.08 NG/ML (0.82-1.58)
[2025-03-18] VITALS (13 sets, daily range): BP systolic 104–126; BP diastolic 55–75; PULSE 54–114; RESP 16–24; TEMP 36.3–36.6; O2SAT 93–99; BMI 26.8
[2025-03-18 00:01] LABS: Add Urine Microscopic? YES; Appearance Urine Clear (Clear); Glucose Urine UA Negative (Negative); Leukocyte Esterase Ur 2+ LEU/UL (Negative); Nitrate Urine Negative (Negative); Non Pathogenic Casts 0-2; Specific Grav Ur 1.037 (1.001-1.035)
--- NOTE | 2025-03-18 00:01 | ECG_ITS ---
Test Date: 2025-03-18 00:01:49 Measurements Intervals [place] Rate: 114 P: 54 ME: 158 QRS: 132 QRSD: 84 T: 71 QT: 342 QTc: 472 Interpretive Statements SINUS TACHYCARDIA WITH OCCASIONAL ECTOPIC PREMATURE COMPLEXES LOW QRS VOLTAGE IN PRECORDIAL LEADS POSSIBLE RIGHT VENTRICULAR CONDUCTION DELAY BORDERLINE ST-T WAVE ABNORMALITY- ANTERIOR LEADS BASELINE ARTIFACT- I, II, III, AVR, AVL, AVF, V1-V6 ABNORMAL ECG Compared to ECG 03/17/2025 20:06:27 NO SIGNIFICANT CHANGE Electronically Signed On 03-18-2025 09:24:31 LAY OUT TECHNICIAN by Freedom Mendoza D.O.
[2025-03-18] MEDS: SODIUM CHLORIDE 0.9% IV 1,000 ML 999 ML IV CONT (00:04)
[2025-03-18 00:20] LABS: Troponin I < 0.012 ng/mL (0.000-0.034)
[2025-03-18] MEDS: cefTRIAXone 1 GM in SODIUM CHLORIDE 0.9% IV 50 ML 100 ML IVPB ×2 (02:31→21:12)
[2025-03-18] MEDS: AZITHROMYCIN IV 500 MG in SODIUM CHLORIDE 0.9% IV 250 ML IVPB ×2 (03:02→23:23)
[2025-03-18] MEDS: IPRATROPIUM 0.5 MG/ALBUTEROL SULFATE 2.5 MG (BASE) AMPUL.NEB 3 ML INHALATION ×2 (03:23→08:45)
--- NOTE | 2025-03-18 03:28 | WPCEDHO ---
ED Hand Off Checklist All vitals saved:yes IV Site documented:yes All med administrations documented:yes Triage Note Triage Note brought in by ems from [facility] 03/17/25 19:45 for c/o increased sob. ems gave 10mg iv decadron and duoneb en route. wears o2 nc 3-5liters at home. arrived talking in full sentences with always cough Allergies Penicillins Allergy (Unknown, Verified 03/07/25 13:10) Swelling Sulfa (Sulfonamide Antibiotics) Allergy (Unknown, Verified 03/07/25 13:10) Rash Family History (Last Reviewed 03/01/25 @ 04:17 by Kristin Cifuentes, [employer]) Mother Family history of chronic obstructive pulmonary disease Hypertension Chronic obstructive pulmonary disease Sibling Family history of malignant neoplasm Asthma Grandparent Acute myocardial infarction Active Medications including assessments/comments Albuterol/Ipratropium (Ipratropium 0.5 Mg/Albuterol Sulfate 2.5 Mg (Base) Ampul.Neb 3 Ml) 3 ml INHALATION Q6HRT [facility] Last Admin: 03/18/25 03:23 Dose: 3 ml Documented By: MANI SANTANA Nebulizer Assessment Document 03/18/25 03:23 MANI (Rec: 03/18/25 03:23 MANI [id number]) Updraft Nebulizer Treatment Method Mask Treatment Tolerance Good Administered/Completed Medications Discontinued Medications Albuterol/Ipratropium (Ipratropium 0.5 Mg/Albuterol Sulfate 2.5 Mg (Base) Ampul.Neb 3 Ml) 3 ml INHALATION Q20M [facility] Stop: 03/17/25 21:16 Last Admin: 03/17/25 21:33 Dose: 3 ml Documented By: Admin: 03/17/25 21:32 Dose: 3 ml Documented By: Admin: 03/17/25 21:03 Dose: 3 ml Documented By: MANI Sodium Chloride (Normal Saline Iv) 1,000 mls @ 999 mls/hr IV CONT .Q1H1M STA Stop: 03/17/25 21:31 Last Infusion: 03/17/25 23:49 Dose: Infused Documented By: Admin: 03/17/25 20:40 Dose: 999 mls/hr Documented By: DONTE Sodium Chloride (Normal Saline Iv) 1,000 mls @ 999 mls/hr IV CONT .Q1H1M STA Stop: 03/17/25 21:31 Last Infusion: 03/18/25 02:26 Dose: Infused Documented By: Admin: 03/18/25 00:04 Dose: 999 mls/hr Documented By: DONTE Ceftriaxone Sodium 1 gm/ (Sodium Chloride) 50 mls @ 100 mls/hr IVPB ONCE STA Stop: 03/18/25 01:21 Last Infusion: 03/18/25 03:01 Dose: Infused Documented By: W Admin: 03/18/25 02:31 Dose: 100 mls/hr Documented By: W Azithromycin 500 mg/ Sodium (Chloride) 250 mls @ 250 mls/hr IVPB ONCE STA Stop: 03/18/25 01:51 Last Admin: 03/18/25 03:02 Dose: 250 mls/hr Documented By: W Methylprednisolone Sodium Succinate (Methylprednisolone Sod Succ 125 Mg Vial) 125 mg IV PUSH ONCE STA Stop: 03/17/25 20:32 Last Admin: 03/17/25 20:49 Dose: Not Given Documented By: DONTE Non-Admin Reason: See ED Documentation Notes 03/17/25 21:13 Respiratory Therapy Note by Jd Fisher delayed due to original sample being sent to lab. Tech had to collect a new sample. Initialized on 03/17/25 21:13 - END OF NOTE Interventions/Assessments IV / Saline Lock, Insert Start: 03/17/25 19:45 Freq: Status: Active Protocol: Document 03/17/25 19:45 SRW (Rec: 03/17/25 20:06 SRW [id number]) IV Assessment Peripheral Access Left Forearm IV Catheter Access Initiated Before Arrival Catheter Gauge 20 PA: Cardiovascular Assessment Start: 03/17/25 19:45 Freq: Status: Active Protocol: Document 03/17/25 19:45 SRW (Rec: 03/17/25 20:04 SRW [id number]) Cardiovascular Assessment Cardiovascular None Symptoms Skin Description Normal Color,Dry,Warm PA: Respiratory Assessment Start: 03/17/25 19:45 Freq: Status: Active Protocol: Document 03/17/25 19:45 SRW (Rec: 03/17/25 20:05 SRW [id number]) Respiratory Assessment Symptoms Congestion,Cough Pattern Tachypnea Cough Description Non-Productive Cough Frequency Persistent Last Vital Signs Temperature 98.3 F 03/17/25 19:45 Pulse Rate 93 03/18/25 03:26 Respiratory Rate 16 03/18/25 03:26 Pulse Oximetry 97 03/18/25 00:05 Blood Pressure 104/75 03/18/25 00:05 Blood Pressure Mean 84 03/18/25 00:05 Oxygen Delivery Nasal Cannula 03/17/25 21:06 Oxygen Flow Rate 2 03/17/25 21:06 Last Result - Abnormals Only RBC 3.62 M/mm3 (4.2-5.4) L 03/17/25 21:02 Hct 34.4 % (37.0-47.0) L 03/17/25 21:02 MCH 34.3 pg (26-34) H 03/17/25 21: Neut % (Auto) 87.8 % (45.5-73.1) H 03/17/25 21: Lymph % (Auto) 6.7 % (18.3-44.2) L 03/17/25 21:02 Lymph # (Auto) 0.54 K/mm3 (0.9-3.2) L 03/17/25 21:02 Abs Immat Gran (auto) 0.04 K/mm3 (0.00-0.031) H 03/17/25 21:02 Absolute Neuts (auto) 7.1 K/mm3 (1.3-6.7) H 03/17/25 21:02 VBG pH 7.444 (7.300-7.400) H* 03/17/25 21:02 VBG pCO2 34.3 mmHg (42.0-48.0) L 03/17/25 21:02 VBG pO2 73.1 mmHg (35.0-45.0) H 03/17/25 21:02 VBG HCO3 23.0 mEq/l (24.0-30.0) L 03/17/25 21:02 Sodium 135 mmol/L (137-145) L 03/17/25 21:02 Estimated GFR 56 (59-) L 03/17/25 21:02 Glucose 134 mg/dL (65-110) H 03/17/25 21:02 TSH (Reflex) 8.120 uIU/mL (0.465-4.68) H 03/17/25 21:02 Ur Specific [place] 1.037 (1.001-1.035) H 03/17/25 23:48 Leukocyte Esterase Rfl 2+ DAWIT/UL (Negative) H 03/17/25 23:48 Urine WBC 21-50 /hpf (0-3) H 03/17/25 23:48 Most Recent Suicide Severity Rating Suicide Severity Rating NO RISK INDICATED 03/17/25 19:45
--- NOTE | 2025-03-18 04:09 | ADMGEN ---
This patient, Dayanara Malcolm, was admitted to [facility] Room 312-01. Patient/family oriented to hospital policies and general routines including ID bracelet, bed and alarms, visiting hours, pain management, procedures, bathroom and other care routines, personal items, smoking policy, room service/diet, and visiting hours. Information on how to activate the Rapid Response Team has been discussed. Patient/Family are encouraged to report perceived risks to care and to ask questions if they do not understand what they are told or what they should do.
[2025-03-18] MEDS: SODIUM CHLORIDE 0.9% IV 1,000 ML 125 ML IV CONT (06:19)
--- NOTE | 2025-03-18 07:05 | P.HP_ITS ---
H&P: HPI History of Present Illness Date/Time: 03/18/25 07:05 Chief Complaint: Shortness of breath Narrative: 74-year-old female with history of prior tobacco use disorder, COPD, chronic respiratory failure requiring 3 L at night, 5 L on exertion, KAREN intolerant of BiPAP presenting to [facility] on 03/17/2025 with acute on chronic shortness of breath. Patient was just discharged from this hospital on 05/04/2024 with acute COPD exacerbation. For the past few days she has had or difficulty breathing, her nebulizer machine is not working, she has only been using her rescue inhaler. She has had to in crease her oxygen requirements as her O2 saturation has been in the 80s. She has felt completely winded. Unsure if she has wheezing as she is hard of hearing. He has the same cough with whitish sputum. Denies chest pain, fever, abdominal pain, diarrhea, syncope. ER evaluation demonstrates tachypnea improved after breathing treatment, afebrile. Blood pressure 125/74. WBC 8000, hemoglobin 12.4, INR 1.0, VBG with pH 7.4, pCO2 34.3, PO2 73.1, sodium 135, CRP 0.5, troponin negative. She quad viral screen negative. Viral respiratory pathogen panel from last admission on 03/01/[address] negative. Mycoplasma IgM negative. CT PE preliminary interpretation negative for PE, centrilobular emphysema, new focal airspace consolidation compared to 03/03/2025 in the right lung base adjacent to elevated hemidiaphragm. Patient received ceftriaxone, azithromycin, Solu-Medrol 125 mg IV x1, 2 L normal saline bolus, DuoNeb. Review of Systems Review of Systems: All systems reviewed & are unremarkable except as noted in HPI and below (Subjective) [facility] Past Medical History Medical History Chronic nausea Chronic hypoxic respiratory failure, on home oxygen therapy 2 L at rest 4 L with activity Osteopenia Alternating constipation and diarrhea Herpes simplex type 2 infection Family history of aneurysm of blood vessel of brain Overweight Postmenopausal Former smoker Cervical disc disorder with radiculopathy Chronic migraine Iron deficiency Postmenopausal Pre-diabetes Pulmonary nodule Vitamin D deficiency, unspecified Arthritis of wrist, right Bilateral primary osteoarthritis of knee CVID (common variable immunodeficiency) Eczema Uterine cancer Anxiety Depression Hypothyroid GERD (gastroesophageal reflux disease) Ulcer Hiatal hernia Chronic bronchitis HTN (hypertension) Hyperlipidemia Restless leg syndrome Seasonal allergies Chronic obstructive pulmonary disease Chronic respiratory failure with hypoxia Dyslipidemia Essential hypertension Mixed hyperlipidemia (10/28/18) Obstructive sleep apnea Tachycardia Chronic with baseline heart rate 90s to low 100s Surgical History Surgical History History of hysterectomy History of tonsillectomy History of carpal tunnel release Family History Family History Mother Family history of chronic obstructive pulmonary disease Hypertension Chronic obstructive pulmonary disease Sibling Family history of malignant neoplasm Asthma Grandparent Acute myocardial infarction Social History Social History (Updated 03/01/25 @ 04:18 by Kristin Cifuentes APRN) Social History: 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 She smoked at least 1 pack of cigarettes per day from the time she was a teenager until approximately 2008. She denies any significant alcohol or illicit substance use. She owns her own home and her adult son, [id number] live with her. Her adult grandchild no longer lives with her. Code status: Full code (patient would not want tracheostomy or feeding tube but is okay with short-term ventilation. Surrogate decision maker: Nani Nolan (sister) Smoking packs per day: 1 Smoking cigarettes per day: 20.0 Years smoked: 40 Smoking pack-years: 40.00 Smoking status: Former smoker Tobacco type: cigarettes Second hand tobacco smoke exposure: Yes Smoking end date: 04/12/08 Alcohol intake: never Substance use: never Substance use type: does not use Lack of Transportation: No Lack of Food: Never True Current Housing: I Have Housing Concerned About Future Housing: No Difficulty Paying Gas/Electric Bills: No Difficulty Paying for Meds: No Currently Unemployed: No Education: High School Diploma/GED Difficulty w/ Childcare or Family Care: No Living arrangements: alone Occupation/Education: occupation 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 Gender identity (if verbalized by the patient): Female Spiritual care concerns: No Agree to blood products: No Meds Home Medications and Allergies Home Medications ?Medication ?Instructions ?Recorded ?Confirmed ?Type immune glob G 10 gram/100 100 ml subcut WEEKLY 0 03/18/25 History mL(10%)-gly-IgA ave 46 mcg/mL injection soln (Gamunex-C) albuterol sulfate 90 mcg/actuation 2 puff inhalation Q ID PRN 04/04/24 03/18/25 Rx aerosol inhaler (Ventolin HFA) shortness of breath or wheezing #8.5 grams cetirizine 10 mg tablet See Rx Instructions .Route 0 05/09/24 03/18/25 Rx .COMPLEX #90 tabs ondansetron 4 mg disintegrating See Rx Instructions .R oute 05/09/24 03/18/25 Rx tablet .COMPLEX #60 tabs albuterol sulfate 90 mcg/actuation See Rx Instructions .Route 05/10/24 03/18/25 Rx aerosol inhaler .COMPLEX #8.5 ea roflumilast 500 mcg tablet See Rx Instructions .Route 05/10/24 03/18/25 Rx .COMPLEX #90 tabs albuterol sulfate 90 mcg/actuation 1 inh inhalation Q4 -6H PRN 06/05/24 03/18/25 Rx breath activated powder inhaler shortness of breath or wheezing 1 (ProAir RespiClick) month #1 ea fluticasone 250 mcg-salmeterol 50 See Rx Instructions .Route 06/13/24 03/18/25 Rx mcg/dose blistr powdr for .COMPLEX #180 ea inhalation levothyroxine 88 mcg tablet See Rx Instructions .Route 09/18/24 03/18/25 Rx .COMPLEX #90 tabs Spiriva with HandiHaler 18 mcg and 18 mcg inhalation D AILY #30 caps 09/21/24 03/18/25 Rx inhalation capsules (tiotropium bromide) buspirone 15 mg tablet See Rx Instructions .Route 0 10/05/24 03/18/25 Rx .COMPLEX #180 tabs valacyclovir 500 mg tablet 500 mg PO DAILY #30 tabs 03/18/25 Rx ergocalciferol (vitamin D2) 1,250 1,250 mcg PO [id number] #6 caps 10/31/24 03/18/25 Rx mcg (50,000 unit) capsule ferrous sulfate 325 mg (65 mg See Rx Instructions .Rou te 11/06/24 03/18/25 Rx iron) tablet .COMPLEX #90 tabs ropinirole 1 mg tablet See Rx Instructions .Route 0 11/20/24 03/18/25 Rx .COMPLEX #90 tabs diltiazem HCl 120 mg See Rx Instructions .Route 0 12/29/24 03/18/25 Rx capsule,extended release 24 hr .COMPLEX #90 caps levalbuterol HCl 1.25 mg/3 mL See Rx Instructions .Rou te 02/12/25 03/18/25 Rx solution for nebulization .COMPLEX #810 mL denosumab 60 mg/mL subcutaneous 60 mg subcut [id number] #1 mL 02/13/25 03/18/25 Rx syringe (Prolia) omeprazole 40 mg capsule,delayed 40 mg PO DAILY #90 ca ps 02/19/25 03/18/25 Rx release topiramate 50 mg tablet (Topamax) 50 mg PO BID #180 ta bs 02/19/25 03/18/25 Rx venlafaxine 150 mg 150 mg PO DAILY #90 caps 02/0303/18/25 Rx capsule,extended release 24 hr atorvastatin 40 mg tablet See Rx Instructions .Route 1 04/29/24 03/18/25 Rx .COMPLEX #90 tabs montelukast 10 mg tablet See Rx Instructions .Route 1 04/29/24 03/18/25 Rx .COMPLEX #90 tabs potassium chloride 20 mEq 20 meq PO DAILY #90 tabs 03/18/25 Rx tablet,extended release lidocaine 5 % topical patch 1 patch topical DAILY PRN pain 03/07/25 03/18/25 History (scale score 1-3) lisinopril 10 mg tablet See Rx Instructions .Route 1 05/13/24 03/18/25 Rx .COMPLEX #90 tabs Allergies Allergy/AdvReac Type Severity Reaction Status Date / Time Penicillins Allergy Unknown Swelling Verified 03/07/25 13:10 Sulfa (Sulfonamide Allergy Unknown Rash Verified 03/07/25 13:10 Antibiotics) Vital Signs Vital Signs - 24 hr 03/17/25 19:45 03/17/25 21:06 03/17/25 21:07 Temperature 98.3 F Pulse Rate 111 H 114 H 114 H Respiratory Rate 28 H 16 Blood Pressure 126/85 Pulse Oximetry 90 95 Oxygen Delivery Room Air Nasal Cannula Oxygen Flow Rate 2 03/17/25 22:06 03/18/25 00:05 03/18/25 03:26 Temperature Pulse Rate 114 H 114 H 93 Respiratory Rate 16 24 H 16 Blood Pressure 104/75 Pulse Oximetry 97 Oxygen Delivery Oxygen Flow Rate 03/18/25 03:31 03/18/25 04:00 03/18/25 04:00 Temperature Pulse Rate 93 90 Respiratory Rate 16 18 Blood Pressure 125/74 Pulse Oximetry 96 Oxygen Delivery Nasal Cannula Oxygen Flow Rate 3 Exam Const: General: comfortable and no acute distress Other: A&O x4 HENMT: Mouth: Yes moist mucous membranes Eyes: Pupils: Equal, round and reactive pupils present Neck: Neck: supple Resp: Effort & Inspection: normal respiratory effort Other: Severely diminished lung sounds diffusely, rhonchi right lower lobe Cardio: Rate: regular rate Rhythm: regular rhythm Heart sounds: no gallops GI: Inspection: non-distended GI Palp: Yes Soft to palpation : General: Yes bladder normal to palpation Neuro: Motor exam (neuro): 5/5 motor strength present throughout Extrem: General: no edema Results Labs Labs: Short CBC 03/17/25 Range/Units 21:02 WBC 8.1 (4.5-10.0) K/mm3 Hgb 12.4 (12.0-15.0) g/dL Hct 34.4 L (37.0-47.0) % Plt Count 207 (150-375) k/mm3 BMP 03/17/25 21:02 Sodium 135 L Potassium 3.5 Chloride 105 Carbon Dioxide 25 BUN 15 Creatinine 0.98 Glucose 134 H Calcium 9.1 Cardiac Enzymes 03/17/25 03/17/25 Range/Units 21:02 23:48 Troponin I < 0.012 < 0.012 (0.000-0.034) ng/mL Liver Function 03/17/25 Range/Units 21:02 Total Bilirubin 0.3 (0.2-1.3) mg/dL AST 22 (14-36) U/L ALT 19 (6-35) U/L Alkaline Phosphatase 123 (38-126) U/L Albumin 3.6 (3.5-5.1) g/dL Urine 03/17/25 Range/Units 23:48 Urine Color Yellow (Yellow) Urine Appearance Clear (Clear) Urine pH 6.0 (5.0-9.0) Ur Specific [place] 1.037 H (1.001-1.035) Urine Protein Negative (Negative) mg/dL Urine Glucose (UA) Negative (Negative) mg/dL Assessment and Plan Assessment and plan (1) Pneumonia: Qualifiers: Laterality: bilateral Lung location: lower lobe of lung Pneumonia type: due to unspecified organism Qualified Code(s): J18.9 - Pneumonia, unspecified organism Code(s): J18.9 - Pneumonia, unspecified organism Status: Acute Plan Acute on chronic respiratory failure with pneumonia. Continue ceftriaxone and azithromycin. Check MRSA screen. Continue DuoNebs. Patient has no wheezing, no hypercapnia on ABG, will not continue steroids at this point. Consult pulmonology, she is a patient of Dr. Solis. Patient wishes to be full code. SCDs. Prior Studies I have reviewed the following patient records and this information was taken into consideration when formulating the assessment and plan.: previous labs, previous ER visits and previous hospitalizations Time Spent with Patient Time with patient: less than 45 minutes Hospitalist MIPS Advance Care Plan I have confirmed that the patient's Advanced Care Plan is present, code status is documented, or surrogate decision maker is listed in patient medical record.: Yes Medication Reconciliation I have utilized all available resources to obtain, update and review the patients current medications (includes all prescriptions, OTC, herbals, cannabis, and nutritional supplements).: Yes
[2025-03-18] MEDS: LEVOTHYROXINE SODIUM 88 MCG TABLET BY MOUTH (09:07)
[2025-03-18] MEDS: TOPIRAMATE 25 MG TABLET 50 MG PO ×2 (09:12→21:01)
[2025-03-18] MEDS: PANTOPRAZOLE 40 MG TABLET PO ×2 (09:12→21:02)
[2025-03-18] MEDS: POTASSIUM CHLORIDE 20 MEQ ER TABLET PO (10:26)
[2025-03-18] MEDS: ROFLUMILAST 500 MCG TABLET BY MOUTH (10:26)
[2025-03-18 14:44] LABS: MRSA (PCR) NOT DETECTED (NOT DETECTE)
--- NOTE | 2025-03-18 15:14 | PM.IMPN2 ---
Assessment and Plan Assessment and Plan (1) Pneumonia: Qualifiers: Laterality: bilateral Lung location: lower lobe of lung Pneumonia type: due to unspecified organism Qualified Code(s): J18.9 - Pneumonia, unspecified organism Code(s): J18.9 - Pneumonia, unspecified organism Status: Acute (2) Acute exacerbation of chronic obstructive pulmonary disease: Code(s): J44.1 - Chronic obstructive pulmonary disease with (acute) exacerbation Status: Acute (3) Chronic respiratory failure with hypoxia: Code(s): J96.11 - Chronic respiratory failure with hypoxia Status: Acute (4) Chronic hypoxic respiratory failure, on home oxygen therapy: Code(s): J96.11 - Chronic respiratory failure with hypoxia; Z99.81 - Dependence on supplemental oxygen Status: Acute Plan Patient with prior history of smoking now presented with exacerbation COPD being treated with prednisone, duo neb, and Zithromax, stats feeling much better compared to when she arrived, patient is clinically stable, will consult her air lift operator and further recommendation to follow. Acute on chronic respiratory failure with pneumonia. Continue ceftriaxone and azithromycin. Check MRSA screen. Continue DuoNebs. Patient has no wheezing, no hypercapnia on ABG, will not continue steroids at this point. Consult pulmonology, she is a patient of Dr. Solis. Patient wishes to be full code. SCDs. Subjective Date/time seen: 03/18/25 15:14 Interval history: Shortness of breath H&P-Narrative: 74-year-old female with history of prior tobacco use disorder, COPD, chronic respiratory failure requiring 3 L at night, 5 L on exertion, KAREN intolerant of BiPAP presenting to [facility] on 03/17/2025 with acute on chronic shortness of breath. Patient was just discharged from this hospital on 03/04/2025 with acute COPD exacerbation. For the past few days she has had or difficulty breathing, her nebulizer machine is not working, she has only been using her rescue inhaler. She has had to increase her oxygen requirements as her O2 saturation has been in the 80s. She has felt completely winded. Unsure if she has wheezing as she is hard of hearing. He has the same cough with whitish sputum. Denies chest pain, fever, abdominal pain, diarrhea, syncope. ER evaluation demonstrates tachypnea improved after breathing treatment, afebrile. Blood pressure 125/74. WBC 8000, hemoglobin 12.4, INR 1.0, VBG with pH 7.4, pCO2 34.3, PO2 73.1, sodium 135, CRP 0.5, troponin negative. She quad viral screen negative. Viral respiratory pathogen panel from last admission on 03/01/[address]25 negative. Mycoplasma IgM negative. CT PE preliminary interpretation negative for PE, centrilobular emphysema, new focal airspace consolidation compared to 03/03/2025 in the right lung base adjacent to elevated hemidiaphragm. Patient received ceftriaxone, azithromycin, Solu-Medrol 125 mg IV x1, 2 L normal saline bolus, DuoNeb. Patient with prior history of smoking now presented with exacerbation COPD being treated with prednisone, duo neb, and Zithromax, stats feeling much better compared to when she arrived, patient is clinically stable, will consult her air lift operator and further recommendation to follow. Review of Systems Review of Systems: All systems reviewed & are unremarkable except as noted in HPI and below (Subjective) Exam Narrative: Appears chronically ill Patient is comfortable, NAD HEENT: eyes are clear and none icteric LUNGS:CTA HEART: RR S1S2 ABD: BS+, Soft and nontender Lower extremities: no edema SKIN: nonjaundiced Neuro: grossly intact. Objective Data Vital Signs Vital Signs: Vital Signs - 24 hr 03/17/25 19:45 03/17/25 21:06 03/17/25 21:07 Temperature 36.8 C Pulse Rate 111 H 114 H 114 H Respiratory Rate 28 H 16 Blood Pressure 126/85 Pulse Oximetry 90 95 Oxygen Delivery Room Air Nasal Cannula Oxygen Flow Rate 2 03/17/25 22:06 03/18/25 00:05 03/18/25 03:26 Temperature Pulse Rate 114 H 114 H 93 Respiratory Rate 16 24 H 16 Blood Pressure 104/75 Pulse Oximetry 97 Oxygen Delivery Oxygen Flow Rate 03/18/25 03:31 03/18/25 04:00 03/18/25 04:00 Temperature Pulse Rate 93 90 Respiratory Rate 16 18 Blood Pressure 125/74 Pulse Oximetry 96 Oxygen Delivery Nasal Cannula Oxygen Flow Rate 3 03/18/25 08:45 03/18/25 08:45 03/18/25 08:53 Temperature Pulse Rate 94 93 Respiratory Rate 20 20 Blood Pressure Pulse Oximetry 95 Oxygen Delivery Nasal Cannula Oxygen Flow Rate 3 03/18/25 09:05 03/18/25 09:05 03/18/25 14:00 Temperature 36.6 C Pulse Rate 105 H 105 H Respiratory Rate 16 20 Blood Pressure 121/55 L 126/68 Pulse Oximetry 94 94 99 Oxygen Delivery Room Air Oxygen Flow Rate Intake/Output Intake/Output: Intake & Output 03/15/25 03/16/25 03/17/25 03/18/25 23:59 23:59 23:59 23:59 Intake Total 1000 2138 Balance 1000 2138 Meds/Results Medications: Active Medications Generic Name Dose Route Start Last Admin Trade Name Freq PRN Reason Stop Dose Admin Albuterol 0 puff 03/18/25 08:50 Albuterol Sulfate (*Sp) Aerosol 1 Puff INHALATION Q4HRT PRN Shortness Of Breath Albuterol/Ipratropium 3 ml 03/18/25 02:00 03/18/25 08:45 Ipratropium 0.5 Mg/Albuterol Sulfate 2.5 Mg (Base) Ampul.Neb 3 Ml INHALATION 3 ml Q6HRT [facility] Administration Atorvastatin Calcium 40 mg 03/18/25 21:00 Atorvastatin 40 Mg Tablet BY MOUTH HS [facility] Buspirone HCl 15 mg 03/18/25 09:00 03/18/25 09:12 Buspirone Hcl 5 Mg Tablet BY MOUTH 15 mg Q12HR [facility] Administration Diltiazem HCl 120 mg 03/18/25 21:00 Diltiazem Hcl Cd 120 Mg Cap.24hr BY MOUTH [facility] Ergocalciferol 1,250 mcg 03/21/25 09:00 Ergocalciferol (Vitamin D2) 1,250 Mcg (50,000 Units) Capsule PO Q14D [facility] Ferrous Sulfate 325 mg 03/18/25 21:00 Ferrous Sulfate 325 Mg Tablet PO HS [facility] Ceftriaxone Sodium 1 gm/ 50 mls @ 100 mls/hr 03/18/25 22:00 Sodium Chloride IVPB Q24H [facility] Azithromycin 500 mg/ Sodium 250 mls @ 250 mls/hr 03/19/25 00:00 Chloride IVPB 03/22/25 00:59 Q24H [facility] Levothyroxine Sodium 88 mcg 03/18/25 07:15 03/18/25 09:07 Levothyroxine Sodium 88 Mcg Tablet BY MOUTH 88 mcg DAILY@0630 [facility] Administration Lidocaine 1 patch 03/18/25 08:49 Lidocaine 5% Patch TOPICAL DAILY PRN pain (scale score 1-3) Lisinopril 10 mg 03/18/25 21:00 Lisinopril 10 Mg Tablet BY MOUTH [facility] Loratadine 10 mg 03/18/25 21:00 Loratadine 10 Mg Tablet PO [facility] Miscellaneous Information 0 each 03/18/25 00:01 03/18/25 10:27 Clarify Site For Lidocaine Patch XX 04/17/25 00:00 Not Given CLARIFY [facility] Montelukast Sodium 10 mg 03/18/25 21:00 Montelukast Sodium 10 Mg Tablet BY MOUTH [facility] Non-Formulary Medication 100 ml 03/20/25 09:00 Immune Globul G-Gly-Iga Avg 46 [Gamunex-C] SUB-Q 04/19/25 08:59 WEEKLY [facility] Ondansetron HCl 4 mg 03/18/25 08:50 Ondansetron Hcl Odt 4 Mg Tablet BY MOUTH Q8H PRN Nausea And Vomiting Pantoprazole Sodium 40 mg 03/18/25 21:00 Pantoprazole 40 Mg Tablet PO Q12HR [facility] Potassium Chloride 20 meq 03/18/25 09:00 03/18/25 10:26 Potassium Chloride 20 Meq Er Tablet PO 20 meq DAILY [facility] Administration Roflumilast 500 mcg 03/18/25 09:00 03/18/25 10:26 Roflumilast 500 Mcg Tablet BY MOUTH 500 mcg QAM [facility] Administration Ropinirole HCl 1 mg 03/18/25 20:00 Ropinirole Hcl 1 Mg Tablet BY MOUTH DAILY@2000 [facility] Fluticasone/Salmeterol 2 puff 03/18/25 09:55 03/18/25 11:29 Fluticasone/Salmeterol 115-21 Mcg Inhaler 1 Puff INHALATION Not Given Q12HRT [facility] Topiramate 50 mg 03/18/25 09:00 03/18/25 09:12 Topiramate 25 Mg Tablet PO 50 mg BID [facility] Administration Valacyclovir HCl 500 mg 03/18/25 09:00 03/18/25 10:26 Valacyclovir Hcl 500 Mg Tablet PO 500 mg DAILY [facility] Administration Venlafaxine HCl 150 mg 03/18/25 21:00 Venlafaxine Hcl Xr 75 Mg Cap.Er.24h PO [facility] Radiology Results: ITS Impressions Chest CTA 03/18/25 08:31 IMPRESSION: 1. No pulmonary embolus. 2. Severe emphysema. Chest X-Ray 03/18/25 09:56 IMPRESSION: 1. No acute cardiopulmonary findings given portable technique. Labs Labs: Laboratory Results - last 24 hr 03/17/25 03/17/25 03/18/25 21:02 23:48 13:23 WBC 8.1 RBC 3.62 L Hgb 12.4 Hct 34.4 L MCV 95.0 MCH 34.3 H MCHC 36.0 RDW 13.5 Plt Count 207 MPV 9.9 Immature Gran % (Auto) 0.5 Neut % (Auto) 87.8 H Lymph % (Auto) 6.7 L [place] % (Auto) 4.1 Eos % (Auto) 0.7 Baso % (Auto) 0.2 Lymph # (Auto) 0.54 L [place] # (Auto) 0.3 Eos # (Auto) 0.1 Baso # (Auto) 0.0 Abs Immat Gran (auto) 0.04 H Absolute Neuts (auto) 7.1 H Absolute Nucleated RBC 0.000 Nucleated RBC % 0.0 PT 13.7 INR 1.0 APTT 30.2 VBG pH 7.444 H* VBG pCO2 34.3 L VBG pO2 73.1 H VBG HCO3 23.0 L O2 Delivery Device Nasal cannula O2 Liters/Min 2.0 FiO2 24 Sodium 135 L Potassium 3.5 Chloride 105 Carbon Dioxide 25 Anion Gap 5 BUN 15 Creatinine 0.98 Estim Creat Clear Calc Not Reportable Estimated GFR 56 L Glucose 134 H Lactic Acid 1.5 Calcium 9.1 Magnesium 1.6 Total Bilirubin 0.3 AST 22 ALT 19 Alkaline Phosphatase 123 Troponin I < 0.012 < 0.012 C-Reactive Protein < 0.5 NT-Pro-B Natriuret Pep 99 Total Protein 6.6 Albumin 3.6 Lipase 81 Procalcitonin 0.1 TSH (Reflex) 8.120 H Free T4 0.91 Total T3 1.08 Urine Color Yellow Urine Appearance Clear Urine pH 6.0 Ur Specific [place] 1.037 H Urine Protein Negative Urine Glucose (UA) Negative Urine Ketones Negative Ur Blood (Man) Negative Urine Nitrate Negative Urine Bilirubin Negative Urine Urobilinogen 0.2 Leukocyte Esterase Rfl 2+ H Urine RBC 0-2 Urine WBC 21-50 H Ur Squamous Epith Cells None seen Urine Bacteria None seen Urine Casts 0-2 Nasal MRSA (PCR) Not detected Influenza A (RT-PCR) Negative Influenza B (RT-PCR) Negative RSV (RT-PCR) Negative SARS-CoV-2 RNA (RT-PCR) Negative
--- NOTE | 2025-03-18 15:37 | PM.CNPUL ---
Assessment and Plan Assessment and plan (1) Acute exacerbation of chronic obstructive pulmonary disease: Code(s): J44.1 - Chronic obstructive pulmonary disease with (acute) exacerbation Status: Acute Assessment and Plan: March 18, 2025; readmitted with exacerbation of COPD 11 days after discharge. GOLD grade 2 group E COPD Patient with 82 pack year tobacco use, PFTs 2018 with FEV1 1.99 L, 55% predicted. Decreased DLCO, no bronchodilator response, ratio 37%. CT scan of the chest From 1st report in our system on 01/02/2009 and most recent on 08/27/2024 and 03/01/25 with severe apical predominant centrilobular emphysema. Chronic hypoxemic respiratory failure requiring no oxygen at rest, 4-5 L with activity and 3 L with sleep. ABG 03/19/2024 with pH of 7.40/39/86 on 2 L nasal cannula. 03/01/2025: Patient presents with worsening dyspnea on exertion, hypoxemic respiratory failure with no change in her phlegm volume or color. Plan: I will treat the patient for COPD exacerbation and would decrease her Solu-Medrol to 20 mg IV q.6. I will place her on DuoNebs q.6 hours, I will discontinue her Advair, Spiriva. I will continue montelukast 10 q.day and roflumilast 500 mg p.o. q.day. I will look for other etiologies regarding her symptoms and have ordered an echocardiogram. Her D-dimer is positive and I will order CT angiogram of the chest, I have ordered lower extremity Dopplers.. If her CT angiogram of the chest shows any focal infiltrates consistent with a bacterial pneumonia will add ceftriaxone to her Levaquin. I will check respiratory pathogen panel, urine for Legionella antigen, urine for pneumococcal antigen and serum mycoplasma IgM. Goal saturation 90-94%, adjust oxygen accordingly. I will check an ABG to exclude hypercarbic respiratory failure. I will order alpha 1 anti trypsin genotype and level for the morning. Later in the day patient had an ABG on room air with pH 7.40/35/64. CT angiogram of the chest showed no PE, severe apical predominant centrilobular emphysema with no concerning nodules, masses or focal infiltrates. Lower extremity Dopplers were negative. Echocardiogram showed LVEF greater than 70%, grade 1 diastolic dysfunction, normal RV size and function. Normal left atrial size. Normal right atrial size. No tricuspid regurg so no PASP calculated. 03/02/25: Today the patient tells me she has improved. States she has 50% back to her normal. She has no rest shortness of breath. She has dyspnea on exertion when walking to the bathroom that is the same as yesterday. Her cough is at her baseline with no phlegm or hemoptysis. When I enter the room she was on room air with saturations 95%. She is afebrile. White blood cell count 7.7, creatinine 0.59. patient had hypotension this morning with a lactic acid of 3.1 and was started on levofloxacin and ceftriaxone. Plan: patient is slowly improving. patient has no wheezes and I will change her Solu-Medrol to prednisone 40 mg p.o. q.day, day 2 of steroids. Continue DuoNebs q.6 hours. Continue Daliresp 500 mg q.day, montelukast 10 q.day, Claritin 10 you day. respiratory pathogen panel, urine for Legionella antigen, urine for pneumococcal antigen and serum mycoplasma IgM. CT scan of the chest shows no focal infiltrate with procalcitonin yesterday 0.1. She never had infectious complaints for a pneumonia. Patient with hypotension and lactic acidosis this morning and started on Levaquin and ceftriaxone. Would consider other non pulmonary sources of infection. I will perform home O2 assessment today in case the patient is discharged over the weekend. Home O2 assessment: Rest room air saturation 95%. Exercise room air saturation 82%. Exercise nasal cannula 2 L saturation 86%. Exercise nasal cannula 3 L saturation 86%. Exercise nasal cannula 5 L saturation 93%. Patient requires no oxygen at rest and 5 with activity. 03/03/2025: Patient feels the same as she did yesterday. She states her breathing is 50% back to normal. Her cough is increased with no change in her phlegm. She has no shortness of breath sitting. Her dyspnea on exertion is a tiny bit better than yesterday. Room air saturations are 96%. She is afebrile. White blood cell count 8.6, creatinine 0.67. CRP is Unchanged from 03/01/2024 at less than 0.5. BNP has increased from 03/01/2025 from 95 to 1190 today. her weight is 65.5 with an increased from 59 kg on admission. Plan: Patient is clinically unchanged. She does have more phlegm today. Will check a chest x-ray. Continue prednisone 40 mg p.o. q.day, day 3. Continue DuoNebs q.6 and Daliresp 500 q.day. Continue montelukast 10 and Claritin 10. Patient was previously on Levaquin and received 1 dose of ceftriaxone and her antibiotics were changed yesterday to vancomycin, cefepime and doxycycline all day 2. Her respiratory pathogen panel is negative. Urine for Legionella antigen, urine for pneumococcal antigen and mycoplasma IgM are pending. 03/04/2025: Patient tells me she is much improved today. She is feeling 90% back to her normal. Her cough is better but still persists and is dry with no phlegm and no hemoptysis. She has no shortness of breath at rest. When she walks to the bathroom her dyspnea on exertion is at her baseline. Currently she is on room air with saturations 99%. She is afebrile. White blood cell count 5.9, creatinine 0.71. Her weight today is 65.7 kg. She tells me she is ready to go home today. From a pulmonary perspective patient is ready to be discharged home on these pulmonary medications: Prednisone 40 mg p.o. q.day x1 day, last dose 03/05/25 Levaquin 750 mg p.o. q.day x3 days, last dose 03/07/2025 Advair 250-50 at 1 puff b.i.d.. Spiriva HandiHaler 18 mcg 1 puff q.day Daliresp 500 mg p.o. q.day Montelukast 10 mg p.o. q.day Claritin 10 mg p.o. q.day Guaifenesin 1200 mg p.o. b.i.d. Oxygen: None at rest and 5 L with activity. When she naps or sleeps 3 L nasal cannula. Follow-up in the Pulmonary Clinic in 3-4 weeks. I gave her a business card and informed our production planner scheduler. Discussed with Chanel Falk, will sign off, call with questions. Will follow with you. (2) Obstructive sleep apnea: Code(s): G47.33 - Obstructive sleep apnea (adult) (pediatric) Status: Chronic Assessment and Plan: 12/06/20 Split night sleep study showed mild sleep apnea, AHI 10.1, titrated to BiPAP 20/16 w/2L O2 bleed-in. Patient could not tolerate BiPAP and is not been treated for 2 to 3 years. Currently she is wearing 3 L oxygen at night 03/01/25: Plan: will continue 3 L at night. 03/02/25: Patient wore 3 L nasal cannula last night with no issues. Plan: I will perform an overnight oximetry on 3 L nasal cannula tonight. 03/03/2025: Patient had an overnight oximetry On 3 L nasal cannula with recording duration of 6 hours and 51 minutes. Average saturation 97%. Low saturation 77%. Time with saturation less than or equal to 88% was 0 minutes. Oxygen desaturation index 1.4. plan: No desaturations on 3 L nasal cannula will continue this at night. 03/04/2025: Continue 3 L nasal cannula at night. (2) Chronic respiratory failure with hypoxia: Code(s): J96.11 - Chronic respiratory failure with hypoxia Status: Acute (3) History of tobacco abuse: Code(s): Z87.891 - Personal history of nicotine dependence Status: Acute Plan plan: add steroids; she is not wheezing, however is admitted again 11 days after discahrge, no clear reason. She was using medications, has not smoked, was at a gathering last night, but she was having mild HORN during the day yesterday before going to yazidism event last night. Not clear what if anything caused her to worsen. She is on Daliresp, History of Present Illness History of Present Illness Consult date: 03/18/25 Chief complaint: Pneumonia Narrative: pt was seen Mar 18, 2025 20:50 Room 312 NEW: Dayanara Malcolm is a 74-year-old woman followed in our clinic, discharged home Mar 05 after COPD exacerbation, completed 2 more days of steroids, 3-4 more days of antibiotics. She was 90% back to [facility] until yesterday when she was slightly more short of breath yesterday when walking in to get an MRI for her liver. Last evening she was at a yazidism event, stayed near the entrance away from the large group of people while her friend got food and drink for her. She was there for an hour when she went to the bathroom, was too short of breath to walk back to the main room. Her friend helped her back to the the gathering, ambulance was called, she came to the ER. CXR was unremarkable, chest Ct showed basilar pneumonia/ She has not had pneumonia symptoms/ where she was taken care of by her friends while the ambulance came. She has not had a fever, sore throat, leg selling, Nausea or vomiting. She was without a nebulizer since January, had a rescue inhaler but says that she could have used the nebulizer with more benefit if it had been available after the [facility] was [facility]. DATA 03/16/2025 chest CTA; There is severe emphysema. There is mild atelectasis bilaterally. There is a 5 mm nodule in left lower lobe, stable from 08/02/2023, likely benign. No pleural effusion. The heart size is normal. There is a trace pericardial effusion. There is a 4.5 cm cyst in right kidney. There is no pulmonary embolus. There is severe cervical and thoracic spondylosis. IMPRESSION: 1. No pulmonary embolus. 2. Severe emphysema. 03/01/2025: This is a new pulmonary consult for COPD. In 74-year-old with a history of COPD with hypoxemic respiratory failure requiring no oxygen at rest, 4-5 L with activity and 3 with sleep, cirrhosis, CVID, KAREN untreated for 2 years on 3 L nasal cannula at night. Three weeks ago the patient states she had shortness of breath, phlegm and went to the emergency room on 02/08/2025 and was diagnosed with pneumonia and was treated with levofloxacin x7 days and prednisone x5 days. Patient took these medicines and recovered to 95% back to her normal. On 02/25/2025 the patient was normal and at baseline she can walk half a block and has to stop because of dyspnea on exertion. She has a chronic cough and wheezes every other day. She coughs up phlegm 6 times a day that is usually milky. On 02/26 2025 the patient developed dyspnea on exertion. She had no fever chills, rigors, change in her phlegm volume or color, wheezing, nasal congestion, chest pain or leg swelling. On 02/27/2025 she had worsening oxygenation and her saturations were 86% on room air. 02/28/2025 patient presented to the emergency room with shortness of breath. Her blood pressure is 119/59, heart rate 93, respirations 18, on 2 L nasal cannula saturations were 98%. White blood cell count was 4.6, eosinophils 4.6%. Creatinine 0.76. Chest x-ray with no effusions or infiltrates. Her lungs were clear to auscultation. She was treated for COPD exacerbation with Solu-Medrol, Levaquin, bronchodilators. 03/01/2025: Currently the patient tells me she is breathing normally at rest. She still has the same dyspnea on exertion and fatigue. On room air her saturations are 94%. Her white blood cell count is 2.9, creatinine 0.77, CRP less than 0.5, BNP 95, procalcitonin 0.1. D-dimer is positive at 0.61. CT angiogram of the chest has been ordered. Later in the day patient had an ABG on room air with pH 7.40/35/64. CT angiogram of the chest showed no PE, severe apical predominant centrilobular emphysema with no concerning nodules, masses or focal infiltrates. Lower extremity Dopplers were negative. Echocardiogram showed LVEF greater than 70%, grade 1 diastolic dysfunction, normal RV size and function. Normal left atrial size. Normal right atrial size. No tricuspid regurg so no PASP calculated. 03/02/25: Today the patient tells me she has improved. States she has 50% back to her normal. She has no rest shortness of breath. She has dyspnea on exertion when walking to the bathroom that is the same as yesterday. Her cough is at her baseline with no phlegm or hemoptysis. When I enter the room she was on room air with saturations 95%. She is afebrile. White blood cell count 7.7, creatinine 0.59. patient had hypotension this morning with a lactic acid of 3.1 and was started on levofloxacin and ceftriaxone. Home O2 assessment: Rest room air saturation 95%. Exercise room air saturation 82%. Exercise nasal cannula 2 L saturation 86%. Exercise nasal cannula 3 L saturation 86%. Exercise nasal cannula 5 L saturation 93%. Patient requires no oxygen at rest and 5 with activity. 03/03/2025: Patient feels the same as she did yesterday. She states her breathing is 50% back to normal. Her cough is increased with no change in her phlegm. She has no shortness of breath sitting. Her dyspnea on exertion is a tiny bit better than yesterday. Room air saturations are 96%. She is afebrile. White blood cell count 8.6, creatinine 0.67. CRP is Unchanged from 03/01/2024 at less than 0.5. BNP has increased from 03/01/2025 from 95 to 1190 today. her weight is 65.5 with an increased from 59 kg on admission. 03/04/2025: Patient tells me she is much improved today. She is feeling 90% back to her normal. Her cough is better but still persists and is dry with no phlegm and no hemoptysis. She has no shortness of breath at rest. When she walks to the bathroom her dyspnea on exertion is at her baseline. Currently she is on room air with saturations 99%. She is afebrile. White blood cell count 5.9, creatinine 0.71. Her weight today is 65.7 kg. She tells me she is ready to go home today. DATA: 03/02/25: Home O2 assessment: Rest room air saturation 95%. Exercise room air saturation 82%. Exercise nasal cannula 2 L saturation 86%. Exercise nasal cannula 3 L saturation 86%. Exercise nasal cannula 5 L saturation 93%. Patient requires no oxygen at rest and 5 with activity. 03/01/25: EXAMINATION: CTA chest PE protocol DATE: 03/01/2025 17:04 INDICATION: Chest pain. Lower extremity edema pain. TECHNIQUE: Computed tomography angiography (CTA) of the chest was performed with 100 mL Omnipaque-350 intravenous contrast timed to evaluate the pulmonary arteries. Coronal maximum intensity projection 3D-reconstructions were created by the technologist. Automated exposure control and iterative reconstruction technique were employed. The dose-length product was 258.57 mGy-cm. COMPARISON: Lower extremity venous Doppler dated 03/01/2025. FINDINGS: Significant emphysematous lungs without acute pulmonary lesions. No evidence of pulmonary emboli. Thoracic aorta shows atherosclerotic changes. Moderate calcific changes at the origin of superior mesenteric artery in the upper abdomen. IMPRESSION: 1. No evidence of pulmonary emboli. Significant emphysematous changes of lungs. 03/01/25: Echo Summary 1. Complete two-dimensional, color flow and Doppler transthoracic echocardiogram is performed. 2. Left ventricular chamber dimension is normal. 3. Left ventricular systolic function is hyperdynamic, estimated at >70. 4. The left ventricular diastolic function is grade I diastolic dysfunction. 5. E/e' 14 is mildly elevated. 6. The mitral valve has a moderately calcified annulus. 7. Normal inferior vena cava with <50% collapse upon inspiration consistent with elevated right atrial pressure, 10 mmHg. Right Ventricle Right ventricular chamber dimension is normal. Right ventricular systolic function is normal and with normal TAPSE 1.9 cm. Left Atria Left atrial chamber dimension is normal. Right Atria Right atrial chamber dimension is normal. 08/27/2024: CT Scan of the Chest without Contrast: Clinical Indication: Lymph node follow-up, shortness of breath Technique: Contiguous sections were acquired throughout the chest without intravenous contrast. Dose reduction technique was used on this scan by utilizing automated exposure control and iterative reconstruction technique. The dose-length product (DLP) was 110.73 mGy-cm. COMPARISON: 08/02/2023 Findings: Stable minimally prominent left paratracheal lymph node. No other lymphadenopathy identified. Coronary artery calcifications are present.. There is no evidence of pleural or pericardial effusion. Stable 4 mm nodule at the anteromedial left upper lobe (axial image 61). Moderate emphysema present. Images through the upper abdomen reveal no abnormalities. Impression: Stable minimally prominent left paratracheal lymph node. Stable 4 mm left upper lobe nodule. Moderate emphysema. 06/28/2024: Home O2 assessment, rest room air saturation 87%. Rest nasal cannula 1 L saturation 87%. Rest nasal cannula 2 L saturation 92%. Exercise nasal cannula 2 L saturation 85%. Exercise nasal cannula 3 L saturation 86%. Exercise nasal cannula 4 L saturation 87%. Exercise 5 L nasal cannula saturation 92%. Patient requires 2 L with rest and 5 with activity. 06/29/2024: Overnight oximetry on 2 L nasal cannula. Recording duration 8 hours and 11 minutes. Basal saturation 93.5%. High saturation 98%. Low saturation 79%. Time with saturation less than or equal to 88% was 22.41 minutes, oxygen desaturation index 2. Chest CTA 05/05/23 @ [facility] - no PE. R hilar node measuring 1.8cm. Trace pericardial effusion. Complete collapse of RML with central bronchial obstruction. Cannot exclude superimposed infection. Mild peripheral interstitial fibrotic change. Severe centrilobular emphysema. 5mm LLL nodule. PET-CT and/or follow-up Chest CT in 3-6 months. LDCT 09/18/22 - severe emphysema. There is mild atelectasis bilaterally. There is a stable 4 mm nodule in right upper lobe. PET-CT 09/25/21 - 9 mm part solid nodule in left lung upper lobe without increased activity with marked interval improvement, consistent with infection. Severe emphysema. 08/26/2021 - chest CTA [place] - 3 cm irregularly marginated left upper lobe soft tissue mass centrally. Recommend bronchoscopy and biopsy to exclude malignancy. No PE. Emphysematous changes. Linear densities throughout the left upper lobe which could relate to lymphangitic spread of neoplasm. There are smaller densities peripherally which could relate to satellite pulmonary nodules. The appearance of this process is most worrisome for malignancy although other etiologies could include unusual appearance of infection. Small mediastinal lymph nodes 10/20/20 chest CTA [place] ; 2.1cm left lower lobe nodule, suspicious for bronchogenic carcinoma with possible right hilar metastases. Consider percutaneous biopsy using CT guidance or PET/CT examination. 10/25/2017 PFT - severe COPD. FEV 1 .99Liters, 55%. Markedly decreased DLCO. No acute bronchodilator response. FEV1/FVC 37%. NIOX-Normal. 03/17/20 Chest CTA - No evidence of pulmonary embolism. Prominent emphysematous changes. Stable 5 mm left lower lobe pulmonary nodule since 01/25/2019. 12/22/[address] - Resolved left lower lobe nodule, consistent with resolving pneumonia. Severe emphysema. 12/06/20 Split night sleep study showed mild sleep apnea, AHI 10.1, titrated to BiPAP 20/16 w/2L O2 bleed-in. Jan 2020- split night sleep study; 04/2018 echo - grade I diastolic dysfunction, EF 60%, normal RVSP. Review of Systems Review of Systems: All systems reviewed & are unremarkable except as noted in HPI and below PMFSH Past Medical History Medical History Chronic nausea Chronic hypoxic respiratory failure, on home oxygen therapy 2 L at rest 4 L with activity Osteopenia Alternating constipation and diarrhea Herpes simplex type 2 infection Family history of aneurysm of blood vessel of brain Overweight Postmenopausal Former smoker Cervical disc disorder with radiculopathy Chronic migraine Iron deficiency Postmenopausal Pre-diabetes Pulmonary nodule Vitamin D deficiency, unspecified Arthritis of wrist, right Bilateral primary osteoarthritis of knee CVID (common variable immunodeficiency) Eczema Uterine cancer Anxiety Depression Hypothyroid GERD (gastroesophageal reflux disease) Ulcer Hiatal hernia Chronic bronchitis HTN (hypertension) Hyperlipidemia Restless leg syndrome Seasonal allergies Chronic obstructive pulmonary disease Chronic respiratory failure with hypoxia Dyslipidemia Essential hypertension Mixed hyperlipidemia (10/28/18) Obstructive sleep apnea Tachycardia Chronic with baseline heart rate 90s to low 100s Surgical History Surgical History History of hysterectomy History of tonsillectomy History of carpal tunnel release Family History Family History Mother Family history of chronic obstructive pulmonary disease Hypertension Chronic obstructive pulmonary disease Sibling Family history of malignant neoplasm Asthma Grandparent Acute myocardial infarction Social History Social History (Updated 03/01/25 @ 04:18 by Kristin Cifuentes APRN) Social History: 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 She smoked at least 1 pack of cigarettes per day from the time she was a teenager until approximately 2008. She denies any significant alcohol or illicit substance use. She owns her own home and her adult son, [id number] live with her. Her adult grandchild no longer lives with her. Code status: Full code (patient would not want tracheostomy or feeding tube but is okay with short-term ventilation. Surrogate decision maker: Nani Francisco (sister) Smoking packs per day: 1 Smoking cigarettes per day: 20.0 Years smoked: 40 Smoking pack-years: 40.00 Smoking status: Former smoker Tobacco type: cigarettes Second hand tobacco smoke exposure: Yes Smoking end date: 04/12/08 Alcohol intake: never Substance use: never Substance use type: does not use Lack of Transportation: No Lack of Food: Never True Current Housing: I Have Housing Concerned About Future Housing: No Difficulty Paying Gas/Electric Bills: No Difficulty Paying for Meds: No Currently Unemployed: No Education: High School Diploma/GED Difficulty w/ Childcare or Family Care: No Living arrangements: alone Occupation/Education: occupation 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 Gender identity (if verbalized by the patient): Female Spiritual care concerns: No Agree to blood products: No Meds Home Medications and Allergies Home Medications ?Medication ?Instructions ?Recorded ?Confirmed ?Type immune glob G 10 gram/100 100 ml subcut WEEKLY 03/17/20 03/18/25 History mL(10%)-gly-IgA ave 46 mcg/mL injection soln (Gamunex-C) albuterol sulfate 90 mcg/actuation 2 puff inhalation QID PRN 04/04/24 03/18/25 Rx aerosol inhaler (Ventolin HFA) shortness of breath or wheezing #8.5 grams cetirizine 10 mg tablet See Rx Instructions .Route 05/09/24 03/18/25 Rx .COMPLEX #90 tabs ondansetron 4 mg disintegrating See Rx Instructions .Route 05/09/24 03/18/25 Rx tablet .COMPLEX #60 tabs albuterol sulfate 90 mcg/actuation See Rx Instructions .Route 05/10/24 03/18/25 Rx aerosol inhaler .COMPLEX #8.5 ea roflumilast 500 mcg tablet See Rx Instructions .Route 05/10/24 03/18/25 Rx .COMPLEX #90 tabs albuterol sulfate 90 mcg/actuation 1 inh inhalation Q4-6H PRN 06/05/24 03/18/25 Rx breath activated powder inhaler shortness of breath or wheezing 1 (ProAir RespiClick) month #1 ea fluticasone 250 mcg-salmeterol 50 See Rx Instructions .Route 06/13/24 03/18/25 Rx mcg/dose blistr powdr for .COMPLEX #180 ea inhalation levothyroxine 88 mcg tablet See Rx Instructions .Route 09/18/24 03/18/25 Rx .COMPLEX #90 tabs Spiriva with HandiHaler 18 mcg and 18 mcg inhalation DAILY #30 caps 09/21/24 03/18/25 Rx inhalation capsules (tiotropium bromide) buspirone 15 mg tablet See Rx Instructions .Route 10/05/24 03/18/25 Rx .COMPLEX #180 tabs valacyclovir 500 mg tablet 500 mg PO DAILY #30 tabs 10/27/24 03/18/25 Rx ergocalciferol (vitamin D2) 1,250 1,250 mcg PO [id number] #6 caps 10/31/24 03/18/25 Rx mcg (50,000 unit) capsule ferrous sulfate 325 mg (65 mg See Rx Instructions .Route 11/06/24 03/18/25 Rx iron) tablet .COMPLEX #90 tabs ropinirole 1 mg tablet See Rx Instructions .Route 11/20/24 03/18/25 Rx .COMPLEX #90 tabs diltiazem HCl 120 mg See Rx Instructions .Route 12/29/24 03/18/25 Rx capsule,extended release 24 hr .COMPLEX #90 caps levalbuterol HCl 1.25 mg/3 mL See Rx Instructions .Route 02/12/25 03/18/25 Rx solution for nebulization .COMPLEX #810 mL denosumab 60 mg/mL subcutaneous 60 mg subcut [id number] #1 mL 02/13/25 03/18/25 Rx syringe (Prolia) omeprazole 40 mg capsule,delayed 40 mg PO DAILY #90 caps 02/19/25 03/18/25 Rx release topiramate 50 mg tablet (Topamax) 50 mg PO BID #180 tabs 02/19/25 03/18/25 Rx venlafaxine 150 mg 150 mg PO DAILY #90 caps 02/19/25 03/18/25 Rx capsule,extended release 24 hr atorvastatin 40 mg tablet See Rx Instructions .Route 02/27/25 03/18/25 Rx .COMPLEX #90 tabs montelukast 10 mg tablet See Rx Instructions .Route 02/27/25 03/18/25 Rx .COMPLEX #90 tabs potassium chloride 20 mEq 20 meq PO DAILY #90 tabs 02/27/25 03/18/25 Rx tablet,extended release lidocaine 5 % topical patch 1 patch topical DAILY PRN pain 03/07/25 03/18/25 History (scale score 1-3) lisinopril 10 mg tablet See Rx Instructions .Route 03/12/25 03/18/25 Rx .COMPLEX #90 tabs Allergies Allergy/AdvReac Type Severity Reaction Status Date / Time Penicillins Allergy Unknown Swelling Verified 03/07/25 13:10 Sulfa (Sulfonamide Allergy Unknown Rash Verified 03/07/25 13:10 Antibiotics) Vital Signs Vital Signs - 24 hr 03/17/25 19:45 03/17/25 21:06 03/17/25 21:07 Temperature 36.8 C Pulse Rate 111 H 114 H 114 H Respiratory Rate 28 H 16 Blood Pressure 126/85 Pulse Oximetry 90 95 Oxygen Delivery Room Air Nasal Cannula Oxygen Flow Rate 2 03/17/25 22:06 03/18/25 00:05 03/18/25 03:26 Temperature Pulse Rate 114 H 114 H 93 Respiratory Rate 16 24 H 16 Blood Pressure 104/75 Pulse Oximetry 97 Oxygen Delivery Oxygen Flow Rate 03/18/25 03:31 03/18/25 04:00 03/18/25 04:00 Temperature Pulse Rate 93 90 Respiratory Rate 16 18 Blood Pressure 125/74 Pulse Oximetry 96 Oxygen Delivery Nasal Cannula Oxygen Flow Rate 3 03/18/25 08:45 03/18/25 08:45 03/18/25 08:53 Temperature Pulse Rate 94 93 Respiratory Rate 20 20 Blood Pressure Pulse Oximetry 95 Oxygen Delivery Nasal Cannula Oxygen Flow Rate 3 03/18/25 09:05 03/18/25 09:05 03/18/25 14:00 Temperature 36.6 C Pulse Rate 105 H 105 H Respiratory Rate 16 20 Blood Pressure 121/55 L 126/68 Pulse Oximetry 94 94 99 Oxygen Delivery Room Air Oxygen Flow Rate Exam Narrative: GEN: Alert, oriented, not in distress. She is wearing 2 L nasal cannula with saturation 93%. She went on with instructons that she did not have to use O2 at rest. She had her oximeter, was not having low O2 sats. HEENT: pupils are equal, EOMI, symmetrical face; oral membranes moist, Mallampati II airway, upper dentures. NECK: Trachea is midline CHEST: Equal air entry, symmetric excursion, decreased breath sounds without wheezing or crackles. CV: Regular S1S2 no m/g/r ABD : (+) bowel sounds Extremities : no clubbing, cyanosis, or edema. No calf tenderness. She had good capillary refill. PSYCH: normal thought and speech, gait is not tested. She is able to speak in sentences with little difficulty. Results Laboratory Findings 03/17/25 21:02 03/17/25 21:02 ABG, PT/INR, D-dimer: PT/INR, D-dimer PT 13.7 Seconds (11.1-14.7) 03/17/25 21: INR 1.0 03/17/25 21:02 Abnormal lab findings: Abnormal Labs 03/17/25 03/17/25 21:02 23:48 RBC 3.62 L Hct 34.4 L MCH 34.3 H Neut % (Auto) 87.8 H Lymph % (Auto) 6.7 L Lymph # (Auto) 0.54 L Abs Immat Gran (auto) 0.04 H Absolute Neuts (auto) 7.1 H VBG pH 7.444 H* VBG pCO2 34.3 L VBG pO2 73.1 H VBG HCO3 23.0 L Sodium 135 L Estimated GFR 56 L Glucose 134 H TSH (Reflex) 8.120 H Ur Specific [place] 1.037 H Leukocyte Esterase Rfl 2+ H Urine WBC 21-50 H
[2025-03-18] MEDS: FERROUS SULFATE 325 MG TABLET PO (21:00)
[2025-03-18] MEDS: VENLAFAXINE HCL XR 75 MG CAP.ER.24H 150 MG PO (21:02)
[2025-03-18] MEDS: ATORVASTATIN 40 MG TABLET BY MOUTH (21:02)
[2025-03-18] MEDS: LORATADINE 10 MG TABLET PO (21:02)
[2025-03-18] MEDS: MONTELUKAST SODIUM 10 MG TABLET BY MOUTH (21:07)
[2025-03-18] MEDS: dilTIAZem HCL CD 120 MG CAP.24HR BY MOUTH (21:08)
[2025-03-19] VITALS (7 sets, daily range): BP systolic 102; BP diastolic 61; PULSE 78–107; RESP 16–20; TEMP 36.6; O2SAT 94–100
[2025-03-19 06:16] LABS: Hematocrit 33.9 % (37.0-47.0); Hemoglobin 12.0 g/dL (12.0-15.0); Mean Corpuscular HGB Conc 35.4 g/dl (32-36); Mean Corpuscular Hemoglobin 36.8 pg (26-34); Mean Corpuscular Volume 104.0 fl (80-100); Platelet Count Result 222 k/mm3 (150-375); Red Blood Count 3.26 M/mm3 (4.2-5.4); White Blood Count 6.2 K/mm3 (4.5-10.0)
[2025-03-19] MEDS: LEVOTHYROXINE SODIUM 88 MCG TABLET BY MOUTH (06:18)
[2025-03-19] MEDS: IPRATROPIUM 0.5 MG/ALBUTEROL SULFATE 2.5 MG (BASE) AMPUL.NEB 3 ML INHALATION (07:16)
[2025-03-19] MEDS: FLUTICASONE/SALMETEROL 115-21 MCG INHALER 1 PUFF 2 PUFF INHALATION (07:16)
[2025-03-19 07:26] LABS: Magnesium 1.8 mg/dL (1.6-2.3); Potassium 4.0 mmol/L (3.4-5.0)
[2025-03-19] MEDS: POTASSIUM CHLORIDE 20 MEQ ER TABLET PO (08:14)
[2025-03-19] MEDS: PANTOPRAZOLE 40 MG TABLET PO (08:14)
[2025-03-19] MEDS: TOPIRAMATE 25 MG TABLET 50 MG PO (08:14)
[2025-03-19] MEDS: ROFLUMILAST 500 MCG TABLET BY MOUTH (08:14)
[2025-03-19 09:04] LABS: Anion Gap 5 mmol/L (4-12); Blood Urea Nitrogen 10 mg/dL (7-17); Calcium 8.4 mg/dL (8.4-10.2); Carbon Dioxide 24 mmol/L (22-30); Chloride 111 mmol/L (98-107); Estimated CRCL calculation 55 ml/min; Estimated Glomerular Filt Rate > 60; Glucose 133 mg/dL (65-110); Sodium 140 mmol/L (137-145)
--- NOTE | 2025-03-19 10:53 | P.PNPL_ITS ---
Progress Note: A&P Assessment and Plan (1) Acute exacerbation of chronic obstructive pulmonary disease: Code(s): J44.1 - Chronic obstructive pulmonary disease with (acute) exacerbation Status: Acute Assessment and Plan: GOLD grade 2 group E COPD Patient with 82 pack year tobacco use, PFTs 2018 with FEV1 1.99 L, 55% predicted. Decreased DLCO, no bronchodilator response, ratio 37%. CT scan of the chest From 1st report in our system on 01/02/2009 and most recent on 08/27/2024 and 03/01/25 with severe apical predominant centrilobular emphysema. Chronic hypoxemic respiratory failure requiring no oxygen at rest, 4-5 L with activity and 3 L with sleep. ABG 03/19/2024 with pH of 7.40/39/86 on 2 L nasal cannula. 03/18/25: plan: add steroids; she is not wheezing, however is admitted again 11 days after discahrge, no clear reason. She was using medications, has not smoked, was at a gathering last night, but she was having mild HORN during the day yesterday before going to rastafari event last night. Not clear what if anything caused her to worsen. She is on Daliresp, 03/19/2025: Patient states she is breathing back to normal at rest. She has walked around the room and has her normal dyspnea on exertion. She has no rest shortness of breath. Her cough and phlegm or at her baseline and she has no blood. Her room air saturations are 100%. White blood cell count is 62. Patient tells me she is ready to go home today. From a pulmonary perspective patient is ready to be discharged home on these pulmonary medications: Prednisone 40 mg p.o. q.day x 5 day, last dose 03/05/25 Levaquin 750 mg p.o. q.day x 7 days, last dose 03/07/2025 Advair 250-50 at 1 puff b.i.d.. Spiriva HandiHaler 18 mcg 1 puff q.day Daliresp 500 mg p.o. q.day Montelukast 10 mg p.o. q.day Claritin 10 mg p.o. q.day Guaifenesin 1200 mg p.o. b.i.d. Oxygen: None at rest and 5 L with activity. When she naps or sleeps 3 L nasal cannula. Follow-up in the Pulmonary Clinic On her previously scheduled appointment on 04/03/2025. Discussed with Dr. Nunez, will sign off, call with questions. (2) Obstructive sleep apnea: Code(s): G47.33 - Obstructive sleep apnea (adult) (pediatric) Status: Chronic Assessment and Plan: 12/06/20? ? Split night sleep study showed mild sleep apnea, AHI 10.1, titrated to BiPAP 20/16 w/2L O2 bleed-in. Patient could not tolerate BiPAP and is not been treated for 2 to 3 years. Currently she is wearing 3 L oxygen at night 03/03/2025: Patient had an overnight oximetry On 3 L nasal cannula with recording duration of 6 hours and 51 minutes. Average saturation 97%. Low saturation 77%. Time with saturation less than or equal to 88% was 0 minutes. Oxygen desaturation index 1.4. plan: No desaturations on 3 L nasal cannula will continue this at night. 03/19/2025: Continue 3 L nasal cannula at night. Subjective Date/time seen: 03/19/25 10:53 Interval history: 03/18/25: NEW: Dayanara Malcolm is a 74-year-old woman followed in our clinic, discharged home Mar 05 after COPD exacerbation, completed 2 more days of steroids, 3-4 more days of antibiotics. She was 90% back to [facility] until yesterday when she was slightly more short of breath yesterday when walking in to get an MRI for her liver. Last evening she was at a rastafari event, stayed near the entrance away from the large group of people while her friend got food and drink for her. She was there for an hour when she went to the bathroom, was too short of breath to walk back to the main room. Her friend helped her back to the the gathering, ambulance was called, she came to the ER. CXR was unremarkable, chest Ct showed basilar pneumonia/ She has not had pneumonia symptoms/ where she was taken care of by her friends while the ambulance came. She has not had a fever, sore throat, leg selling, Nausea or vomiting. She was without a nebulizer since January, had a rescue inhaler but says that she could have used the nebulizer with more benefit if it had been available after the last [facility] before she was admitted. 03/19/2025: Patient states she is breathing back to normal at rest. She has walked around the room and has her normal dyspnea on exertion. She has no rest shortness of breath. Her cough and phlegm or at her baseline and she has no blood. Her room air saturations are 100%. White blood cell count is 62. Patient tells me she is ready to go home today. DATA 03/16/2025 chest CTA; There is severe emphysema. There is mild atelectasis bilaterally. There is a 5 mm nodule in left lower lobe, stable from 08/02/2023, likely benign. No pleural effusion. The heart size is normal. There is a trace pericardial effusion. There is a 4.5 cm cyst in right kidney. There is no pulmonary embolus. There is severe cervical and thoracic spondylosis. IMPRESSION: 1. No pulmonary embolus. 2. Severe emphysema. 03/01/2025: This is a new pulmonary consult for COPD. In 74-year-old with a history of COPD with hypoxemic respiratory failure requiring no oxygen at rest, 4-5 L with activity and 3 with sleep, cirrhosis, CVID, KAREN untreated for 2 years on 3 L nasal cannula at night. Three weeks ago the patient states she had shortness of breath, phlegm and went to the emergency room on 02/08/2025 and was diagnosed with pneumonia and was treated with levofloxacin x7 days and prednisone x5 days. Patient took these medicines and recovered to 95% back to her normal. On 02/25/2025 the patient was normal and at baseline she can walk half a block and has to stop because of dyspnea on exertion. She has a chronic cough and wheezes every other day. She coughs up phlegm 6 times a day that is usually milky. On 02/26 2025 the patient developed dyspnea on exertion. She had no fever chills, rigors, change in her phlegm volume or color, wheezing, nasal congestion , chest pain or leg swelling. On 02/27/2025 she had worsening oxygenation and her saturations were 86% on room air. 02/28/2025 patient presented to the emergency room with shortness of breath. Her blood pressure is 119/59, heart rate 93, respirations 18, on 2 L nasal cannula saturations were 98%. White blood cell count was 4.6, eosinophils 4.6%. Creatinine 0.76. Chest x-ray with no effusions or infiltrates. Her lungs were clear to auscultation. She was treated for COPD exacerbation with Solu-Medrol, Levaquin, bronchodilators. 03/01/2025: Currently the patient tells me she is breathing normally at rest. She still has the same dyspnea on exertion and fatigue. On room air her saturations are 94%. Her white blood cell count is 2.9, creatinine 0.77, CRP less than 0.5, BNP 95, procalcitonin 0.1. D-dimer is positive at 0.61. CT angiogram of the chest has been ordered. Later in the day patient had an ABG on room air with pH 7.40/35/64. CT angiogram of the chest showed no PE, severe apical predominant centrilobular emphysema with no concerning nodules, masses or focal infiltrates. Lower extremity Dopplers were negative. Echocardiogram showed LVEF greater than 70%, grade 1 diastolic dysfunction, normal RV size and function. Normal left atrial size. Normal right atrial size. No tricuspid regurg so no PASP calculated. 03/02/25: Today the patient tells me she has improved. States she has 50% back to her normal. She has no rest shortness of breath. She has dyspnea on exertion when walking to the bathroom that is the same as yesterday. Her cough is at her baseline with no phlegm or hemoptysis. When I enter the room she was on room air with saturations 95%. She is afebrile. White blood cell count 7.7, creatinine 0.59. patient had hypotension this morning with a lactic acid of 3.1 and was started on levofloxacin and ceftriaxone. Home O2 assessment: Rest room air saturation 95%. Exercise room air saturation 82%. Exercise nasal cannula 2 L saturation 86%. Exercise nasal cannula 3 L saturation 86%. Exercise nasal cannula 5 L saturation 93%. Patient requires no oxygen at rest and 5 with activity. 03/03/2025: Patient feels the same as she did yesterday. She states her breathing is 50% back to normal. Her cough is increased with no change in her phlegm. She has no shortness of breath sitting. Her dyspnea on exertion is a tiny bit better than yesterday. Room air saturations are 96%. She is afebrile. White blood cell count 8.6, creatinine 0.67. CRP is Unchanged from 03/01/2024 at less than 0.5. BNP has increased from 03/01/2025 from 95 to 1190 today. her weight is 65.5 with an increased from 59 kg on admission. 03/04/2025: Patient tells me she is much improved today. She is feeling 90% back to her normal. Her cough is better but still persists and is dry with no phlegm and no hemoptysis. She has no shortness of breath at rest. When she walks to the bathroom her dyspnea on exertion is at her baseline. Currently she is on room air with saturations 99%. She is afebrile. White blood cell count 5.9, creatinine 0.71. Her weight today is 65.7 kg. She tells me she is ready to go home today. DATA: 03/02/25: Home O2 assessment: Rest room air saturation 95%. Exercise room air saturation 82%. Exercise nasal cannula 2 L saturation 86%. Exercise nasal cannula 3 L saturation 86%. Exercise nasal cannula 5 L saturation 93%. Patient requires no oxygen at rest and 5 with activity. 03/01/25: EXAMINATION: CTA chest PE protocol DATE: 03/01/2025 17:04 INDICATION: Chest pain. Lower extremity edema pain. TECHNIQUE: Computed tomography angiography (CTA) of the chest was performed with 100 mL Omnipaque-350 intravenous contrast timed to evaluate the pulmonary arteries. Coronal maximum intensity projection 3D-reconstructions were created by the technologist. Automated exposure control and iterative reconstruction technique were employed. The dose-length product was 258.57 mGy-cm. COMPARISON: Lower extremity venous Doppler dated 03/01/2025. FINDINGS: Significant emphysematous lungs without acute pulmonary lesions. No evidence of pulmonary emboli. Thoracic aorta shows atherosclerotic changes. Moderate calcific changes at the origin of superior mesenteric artery in the upper abdomen. IMPRESSION: 1. No evidence of pulmonary emboli. Significant emphysematous changes of lungs. 03/01/25: Echo Summary 1. Complete two-dimensional, color flow and Doppler transthoracic echocardiogram is performed. 2. Left ventricular chamber dimension is normal. 3. Left ventricular systolic function is hyperdynamic, estimated at >70. 4. The left ventricular diastolic function is grade I diastolic dysfunction. 5. E/e' 14 is mildly elevated. 6. The mitral valve has a moderately calcified annulus. 7. Normal inferior vena cava with <50% collapse upon inspiration consistent with elevated right atrial pressure, 10 mmHg. Right Ventricle Right ventricular chamber dimension is normal. Right ventricular systolic function is normal and with normal TAPSE 1.9 cm. Left Atria Left atrial chamber dimension is normal. Right Atria Right atrial chamber dimension is normal. 08/27/2024: CT Scan of the Chest without Contrast: Clinical Indication: Lymph node follow-up, shortness of breath Technique: Contiguous sections were acquired throughout the chest without intravenous contrast. Dose reduction technique was used on this scan by utilizing automated exposure control and iterative reconstruction technique. The dose-length product (DLP) was 110.73 mGy-cm. COMPARISON: 08/02/2023 Findings: Stable minimally prominent left paratracheal lymph node. No other lymphadenopathy identified. Coronary artery calcifications are present.. There is no evidence of pleural or pericardial effusion. Stable 4 mm nodule at the anteromedial left upper lobe (axial image 61). Moderate emphysema present. Images through the upper abdomen reveal no abnormalities. Impression: Stable minimally prominent left paratracheal lymph node. Stable 4 mm left upper lobe nodule. Moderate emphysema. 06/28/2024: Home O2 assessment, rest room air saturation 87%. Rest nasal cannula 1 L saturation 87%. Rest nasal cannula 2 L saturation 92%. Exercise nasal cannula 2 L saturation 85%. Exercise nasal cannula 3 L saturation 86%. Exercise nasal cannula 4 L saturation 87%. Exercise 5 L nasal cannula saturation 92%. Patient requires 2 L with rest and 5 with activity. 06/29/2024: Overnight oximetry on 2 L nasal cannula. Recording duration 8 hours and 11 minutes. Basal saturation 93.5%. High saturation 98%. Low saturation 79%. Time with saturation less than or equal to 88% was 22.41 minutes, oxygen desaturation index 2. Chest CTA 05/05/23 @ [facility] - no PE. R hilar node measuring 1.8cm. Trace pericardial effusion. Complete collapse of RML with central bronchial obstruction. Cannot exclude superimposed infection. Mild peripheral interstitial fibrotic change. Severe centrilobular emphysema. 5mm LLL nodule. PET-CT and/or follow-up Chest CT in 3-6 months. LDCT 09/18/22 - severe emphysema. There is mild atelectasis bilaterally. There is a stable 4 mm nodule in right upper lobe. PET-CT 09/25/21 - 9 mm part solid nodule in left lung upper lobe without increased activity with marked interval improvement, consistent with infection. Severe emphysema. 08/26/2021 - chest CTA [place] - 3 cm irregularly marginated left upper lobe soft tissue mass centrally. Recommend bronchoscopy and biopsy to exclude malignancy. No PE. Emphysematous changes. Linear densities throughout the left upper lobe which could relate to lymphangitic spread of neoplasm. There are smaller densities peripherally which could relate to satellite pulmonary nodules. The appearance of this process is most worrisome for malignancy although other etiologies could include unusual appearance of infection. Small mediastinal lymph nodes 10/20/20 chest CTA [place] ; 2.1cm left lower lobe nodule, suspicious for bronchogenic carcinoma with possible right hilar metastases. Consider percutaneous biopsy using CT guidance or PET/CT examination. 10/25/2017 PFT - severe COPD. FEV 1 .99Liters, 55%. Markedly decreased DLCO. No acute bronchodilator response. FEV1/FVC 37%. NIOX-Normal. 03/17/20 Chest CTA - No evidence of pulmonary embolism. Prominent emphysematous changes. Stable 5 mm left lower lobe pulmonary nodule since 01/25/2019. 12/22/[address] - Resolved left lower lobe nodule, consistent with resolving pneumonia. Severe emphysema. 12/06/20 Split night sleep study showed mild sleep apnea, AHI 10.1, titrated to BiPAP 20/16 w/2L O2 bleed-in. Jan 2020- split night sleep study; 04/2018 echo - grade I diastolic dysfunction, EF 60%, normal RVSP. Review of Systems Constitutional: Constitutional: Reports no additional constitutional complaints Eyes: Eyes: Reports no additional eye complaints ENT: Reports system reviewed and no additional complaints, except as documented Cardiovascular: Cardiovascular: Reports no additional cardiovascular complaints Respiratory: Respiratory: Reports no additional respiratory complaints Gastrointestinal: Gastrointestinal: Reports no additional gastrointestinal complaints Musculoskeletal: Musculoskeletal: Reports no additional musculoskeletal complaints Neurologic: Reports system reviewed and no additional complaints, except as documented Psychiatric: Psychiatric: Reports no additional psychiatric complaints Endocrine: Endocrine: Reports no additional endocrine complaints Hematologic/Lymphatic: Hematologic/Lymphatic: Reports no additional hematologic/lymphatic complaints Allergic/Immunologic: Allergic/Immunologic: Reports no additional allergic/immunologic complaints Exam Const: General: cooperative, healthy appearing and comfortable Orientation/consciousness: oriented to person, oriented to place and oriented to time HENMT: Head: normal to inspection Ears: hearing grossly normal bilaterally Eyes: General: appearance normal, both eyes and all related structures Neck: Neck: normal visual inspection Chest: Chest palpation & inspection: normal inspection of the chest Resp: Effort & Inspection: normal respiratory effort and able to speak in complete sentences Auscultation: no crackles, no rales, no rhonchi, no wheezes and lung sounds not diminished Other: No wheezes Cardio: Jugular venous distension: no JVD GI: Inspection: normal to inspection GI Palp: No abdominal tenderness Skin: General skin exam: normal color Neuro: General: oriented to person, oriented to place and oriented to time Extrem: General: normal to inspection Psych: Appearance: grossly normal Objective Data Vital Signs Vital Signs: Vital Signs - 24 hr 03/18/25 12:00 03/18/25 14:00 03/18/25 14:00 Temperature 36.6 C Pulse Rate 101 H 105 H Respiratory Rate 20 Blood Pressure 126/68 Pulse Oximetry 99 94 Oxygen Delivery Nasal Cannula Oxygen Flow Rate 2 03/18/25 16:00 03/18/25 20:00 03/18/25 20:00 Temperature Pulse Rate 101 H 95 Respiratory Rate Blood Pressure Pulse Oximetry 96 Oxygen Delivery Nasal Cannula Oxygen Flow Rate 3 03/18/25 20:38 03/19/25 00:00 03/19/25 04:00 Temperature 36.3 C L Pulse Rate 54 L 89 79 Respiratory Rate 18 Blood Pressure 122/73 Pulse Oximetry 93 Oxygen Delivery Oxygen Flow Rate 03/19/25 05:23 03/19/25 07:15 03/19/25 07:15 Temperature 36.6 C Pulse Rate 78 88 Respiratory Rate 16 20 Blood Pressure 102/61 Pulse Oximetry 100 95 Oxygen Delivery Nasal Cannula Oxygen Flow Rate 3 03/19/25 07:25 03/19/25 08:00 03/19/25 08:00 Temperature Pulse Rate 93 107 H Respiratory Rate 20 Blood Pressure Pulse Oximetry 94 Oxygen Delivery Nasal Cannula Oxygen Flow Rate 2 Intake/Output Intake/Output: Intake & Output 03/16/25 03/17/25 03/18/25 03/19/25 23:59 23:59 23:59 23:59 Intake Total 1000 2532 440 Balance 1000 2532 440 Meds/Results Medications: Active Medications Generic Name Dose Route Start Last Admin Trade Name Freq PRN Reason Stop Dose Admin Albuterol 0 puff 03/18/25 08:50 Albuterol Sulfate (*Sp) Aerosol 1 Puff INHALATION Q4HRT PRN Shortness Of Breath Albuterol/Ipratropium 3 ml 03/18/25 02:00 03/19/25 07:16 Ipratropium 0.5 Mg/Albuterol Sulfate 2.5 Mg (Base) Ampul.Neb 3 Ml INHALATION 3 ml Q6HRT LOVELY Administration Atorvastatin Calcium 40 mg 03/18/25 21:00 03/18/25 21:02 Atorvastatin 40 Mg Tablet BY MOUTH 40 mg HS LOVELY Administration Buspirone HCl 15 mg 03/18/25 09:00 03/19/25 08:14 Buspirone Hcl 5 Mg Tablet BY MOUTH 15 mg Q12HR LOVELY Administration Diltiazem HCl 120 mg 03/18/25 21:00 03/18/25 21:08 Diltiazem Hcl Cd 120 Mg Cap.24hr BY MOUTH 120 mg HS LOVELY Administration Ergocalciferol 1,250 mcg 03/21/25 09:00 Ergocalciferol (Vitamin D2) 1,250 Mcg (50,000 Units) Capsule PO Q14D LOVELY Ferrous Sulfate 325 mg 03/18/25 21:00 03/18/25 21:00 Ferrous Sulfate 325 Mg Tablet PO 325 mg HS LOVELY Administration Ceftriaxone Sodium 1 gm/ 50 mls @ 100 mls/hr 03/18/25 22:00 03/18/25 21:42 Sodium Chloride IVPB Infused Q24H LOVELY Infusion Azithromycin 500 mg/ Sodium 250 mls @ 250 mls/hr 03/19/25 00:00 03/18/25 23:23 Chloride IVPB 03/22/25 00:59 250 mls/hr Q24H LOVELY Administration Levothyroxine Sodium 88 mcg 03/18/25 07:15 03/19/25 06:18 Levothyroxine Sodium 88 Mcg Tablet BY MOUTH 88 mcg DAILY@0630 LOVELY Administration Lidocaine 1 patch 03/18/25 08:49 Lidocaine 5% Patch TOPICAL DAILY PRN pain (scale score 1-3) Lisinopril 10 mg 03/18/25 21:00 03/18/25 21:07 Lisinopril 10 Mg Tablet BY MOUTH 10 mg HS LOVELY Administration Loratadine 10 mg 03/18/25 21:00 03/18/25 21:02 Loratadine 10 Mg Tablet PO 10 mg HS LOVELY Administration Methylprednisolone Sodium Succinate 40 mg 03/18/25 21:30 03/18/25 23:18 Methylprednisolone Sod Succ 40 Mg Vial IV PUSH 40 mg Q6HR LOVELY Administration Miscellaneous Information 0 each 03/18/25 00:01 03/18/25 10:27 Clarify Site For Lidocaine Patch XX 04/17/25 00:00 Not Given CLARIFY LOVELY Montelukast Sodium 10 mg 03/18/25 21:00 03/18/25 21:07 Montelukast Sodium 10 Mg Tablet BY MOUTH 10 mg HS LOVELY Administration Non-Formulary Medication 100 ml 03/20/25 09:00 Immune Globul G-Gly-Iga Avg 46 [Gamunex-C] SUB-Q 04/19/25 08:59 WEEKLY LOVELY Ondansetron HCl 4 mg 03/18/25 08:50 Ondansetron Hcl Odt 4 Mg Tablet BY MOUTH Q8H PRN Nausea And Vomiting Pantoprazole Sodium 40 mg 03/18/25 21:00 03/19/25 08:14 Pantoprazole 40 Mg Tablet PO 40 mg Q12HR LOVELY Administration Potassium Chloride 20 meq 03/18/25 09:00 03/19/25 08:14 Potassium Chloride 20 Meq Er Tablet PO 20 meq DAILY LOVELY Administration Roflumilast 500 mcg 03/18/25 09:00 03/19/25 08:14 Roflumilast 500 Mcg Tablet BY MOUTH 500 mcg QAM LOVELY Administration Ropinirole HCl 1 mg 03/18/25 20:00 03/18/25 20:59 Ropinirole Hcl 1 Mg Tablet BY MOUTH 1 mg DAILY@2000 LOVELY Administration Fluticasone/Salmeterol 2 puff 03/18/25 09:55 03/19/25 07:16 Fluticasone/Salmeterol 115-21 Mcg Inhaler 1 Puff INHALATION 2 puff Q12HRT LOVELY Administration Topiramate 50 mg 03/18/25 21:00 03/19/25 08:14 Topiramate 25 Mg Tablet PO 50 mg Q12HR LOVELY Administration Valacyclovir HCl 500 mg 03/18/25 09:00 03/19/25 08:14 Valacyclovir Hcl 500 Mg Tablet PO 500 mg DAILY LOVELY Administration Venlafaxine HCl 150 mg 03/18/25 21:00 03/18/25 21:02 Venlafaxine Hcl Xr 75 Mg Cap.Er.24h PO 150 mg HS LOVELY Administration Radiology Results: ITS Impressions Chest CTA 03/18/25 08:31 IMPRESSION: 1. No pulmonary embolus. 2. Severe emphysema. Chest X-Ray 03/18/25 09:56 IMPRESSION: 1. No acute cardiopulmonary findings given portable technique. Labs Labs: Laboratory Results - last 24 hr 03/18/25 03/19/25 13:23 05:42 WBC 6.2 RBC 3.26 L Hgb 12.0 Hct 33.9 L MCV 104.0 H D MCH 36.8 H D MCHC 35.4 RDW 16.2 H Plt Count 222 MPV 10.1 Sodium 140 Potassium 4.0 Chloride 111 H Carbon Dioxide 24 Anion Gap 5 BUN 10 D Creatinine 0.65 L Estim Creat Clear Calc 55 Estimated GFR > 60 Glucose 133 H Calcium 8.4 Magnesium 1.8 Nasal MRSA (PCR) Not detected
--- NOTE | 2025-03-19 12:39 | P.DS_ITS ---
DS: Summary Time Spent with Patient Time attestation: Total time spent providing and/or coordinating discharge services: DS: Data Data Completed and Pending Labs on day of discharge: Labs from last 24 hours 03/19/25 03/18/25 05:42 13:23 WBC 6.2 RBC 3.26 L Hgb 12.0 Hct 33.9 L MCV 104.0 H D MCH 36.8 H D MCHC 35.4 RDW 16.2 H Plt Count 222 MPV 10.1 Sodium 140 Potassium 4.0 Chloride 111 H Carbon Dioxide 24 Anion Gap 5 BUN 10 D Creatinine 0.65 L Estim Creat Clear Calc 55 Estimated GFR > 60 Glucose 133 H Calcium 8.4 Magnesium 1.8 Nasal MRSA (PCR) Not detected Discharge Plan Discharge Attending physician on discharge: Taylor Sethi Consulting providers: Mihaela Solis Discharging Clinician: Tao Nunez Patient Disposition: Home Activity: as tolerated Diet: heart healthy Discharge Instructions: Patient to follow discharge care instruction from her perinatal educator Dr. Avitia and follow up as scheduled, patient to follow up with her primary care as soon as possible, patient is instructed if any symptoms worsen to go to nearest ER. Patient Instructions: Antibiotic Form Patient Language: Surinamese Stand Alone Forms: General Discharge Information Follow-up/Referrals: Mihaela Solis MD [Physician, Pulmonology] Efe Ladd DO [Primary Care Provider, Internal Medicine] Discharge Medications: New fluticasone propion-salmeterol [Advair Diskus] 250-50 mcg/dose blister with device 1 inh inhalation Q12H Qty: 60 0RF montelukast 10 mg tablet 10 mg PO DAILY Qty: 30 0RF prednisone 20 mg tablet 40 mg PO DAILY Qty: 10 0RF roflumilast [Daliresp] 500 mcg tablet 500 mcg PO DAILY Qty: 30 0RF guaifenesin 1,200 mg tablet extended release 12hr 1,200 mg PO BID Qty: 30 0RF levofloxacin 750 mg tablet 750 mg PO DAILY Qty: 7 0RF loratadine [Claritin] 10 mg tablet 10 mg PO DAILY Qty: 30 0RF tiotropium bromide [Spiriva with HandiHaler] 18 mcg capsule, w/inhalation device 1 cap inhalation DAILY Qty: 30 0RF Rx Instructions: puncture 1 cap using device; one dose = 2 inhalations Continued albuterol sulfate [Ventolin HFA] 90 mcg/actuation HFA aerosol inhaler 2 puff inhalation QID PRN (Reason: shortness of breath or wheezing) Qty: 8.5 0RF ProAir RespiClick 90 mcg/actuation aerosol powdr breath activated 1 inh inhalation Q4-6H PRN (Reason: shortness of breath or wheezing) 30 Days Qty: 1 2RF valacyclovir 500 mg tablet 500 mg PO DAILY Qty: 30 5RF lidocaine 5 % adhesive patch,medicated 1 patch topical DAILY PRN (Reason: pain (scale score 1-3)) Rx Instructions: leave on most painful area for up to 12 hrs Gamunex-C 10 gram/100 mL (10 %) solution 100 ml subcut WEEKLY Patient Comments: patient is taking every now instead of wednesday Rx Instructions: TAKES ON TUESDAYS ondansetron 4 mg tablet,disintegrating See Rx Instructions .ROUTE .COMPLEX Qty: 60 1RF Dose Instruction: DISSOLVE 1 TABLET ON THE TONGUE EVERY 8 HOURS NEEDED FOR NAUSEA/VOMITING Rx Instructions: DISSOLVE 1 TABLET ON THE TONGUE EVERY 8 HOURS NEEDED FOR NAUSEA/VOMITING cetirizine 10 mg tablet See Rx Instructions .ROUTE .COMPLEX Qty: 90 1RF Dose Instruction: TAKE 1 TABLET BY MOUTH EVERY DAY FOR ALLERGIES Rx Instructions: TAKE 1 TABLET BY MOUTH EVERY DAY FOR ALLERGIES roflumilast 500 mcg tablet See Rx Instructions .ROUTE .COMPLEX Qty: 90 3RF Dose Instruction: TAKE 1 TABLET BY MOUTH DAILY X 90 DAYS Rx Instructions: TAKE 1 TABLET BY MOUTH DAILY X 90 DAYS albuterol sulfate 90 mcg/actuation HFA aerosol inhaler See Rx Instructions .ROUTE .COMPLEX Qty: 8.5 2RF Dose Instruction: INHALE 1-2 PUFFS BY MOUTH EVERY 4 TO 6 HOURS NEEDED FOR SHORTNESS OF BREATH Rx Instructions: INHALE 1-2 PUFFS BY MOUTH EVERY 4 TO 6 HOURS NEEDED FOR SHORTNESS OF BREATH fluticasone propion-salmeterol 250-50 mcg/dose blister with device See Rx Instructions .ROUTE .COMPLEX Qty: 180 3RF Dose Instruction: INHALE 1 PUFF BY MOUTH EVERY 12 HOURS- RINSE AND SPIT AFTER USE Rx Instructions: INHALE 1 PUFF BY MOUTH EVERY 12 HOURS- RINSE AND SPIT AFTER USE levothyroxine 88 mcg tablet See Rx Instructions .ROUTE .COMPLEX Qty: 90 1RF Dose Instruction: TAKE 1 TABLET BY MOUTH EVERY DAY Rx Instructions: TAKE 1 TABLET BY MOUTH EVERY DAY tiotropium bromide [Spiriva with HandiHaler] 18 mcg capsule, w/inhalation device 18 mcg inhalation DAILY Qty: 30 11RF Rx Instructions: INHALE THE CONTENTS OF 1 CAPSULE BY MOUTH ONCE DAILY buspirone 15 mg tablet See Rx Instructions .ROUTE .COMPLEX Qty: 180 1RF Dose Instruction: TAKE 1 TABLET BY MOUTH TWICE A DAY Rx Instructions: TAKE 1 TABLET BY MOUTH TWICE A DAY ergocalciferol (vitamin D2) 1,250 mcg (50,000 unit) capsule 1,250 mcg PO [id number] Qty: 6 3RF Rx Instructions: NEEDS ON WEDNESDAY ferrous sulfate 325 mg (65 mg iron) tablet See Rx Instructions .ROUTE .COMPLEX Qty: 90 1RF Dose Instruction: TAKE 1 TABLET BY MOUTH EVERY DAY Rx Instructions: TAKE 1 TABLET BY MOUTH EVERY DAY ropinirole 1 mg tablet See Rx Instructions .ROUTE .COMPLEX Qty: 90 3RF Dose Instruction: TAKE 1 TABLET BY MOUTH 1-2 HOURS BEFORE BEDTIME Rx Instructions: TAKE 1 TABLET BY MOUTH 1-2 HOURS BEFORE BEDTIME diltiazem HCl 120 mg capsule,extended release 24hr See Rx Instructions .ROUTE .COMPLEX Qty: 90 2RF Dose Instruction: TAKE 1 CAPSULE BY MOUTH EVERY DAY Rx Instructions: TAKE 1 CAPSULE BY MOUTH EVERY DAY levalbuterol HCl 1.25 mg/3 mL solution for nebulization See Rx Instructions .ROUTE .COMPLEX Qty: 810 1RF Dose Instruction: INHALE THE CONTENTS OF 1 VIAL VIA NEBULIZER 4 TIMES DAILY NEEDED FOR SHORTNESS OF BREATH/WHEEZING Rx Instructions: INHALE THE CONTENTS OF 1 VIAL VIA NEBULIZER 4 TIMES DAILY NEEDED FOR SHORTNESS OF BREATH/WHEEZING Prolia 60 mg/mL syringe 60 mg subcut [id number] Qty: 1 1RF Rx Instructions: DUE IN 2024 venlafaxine 150 mg capsule,extended release 24hr 150 mg PO DAILY Qty: 90 1RF Rx Instructions: TAKE 1 CAPSULE BY MOUTH EVERY DAY omeprazole 40 mg capsule,delayed release(DR/EC) 40 mg PO DAILY Qty: 90 1RF Rx Instructions: TAKE 1 CAPSULE BY MOUTH EVERY DAY topiramate [Topamax] 50 mg tablet 50 mg PO BID Qty: 180 2RF montelukast 10 mg tablet See Rx Instructions .ROUTE .COMPLEX Qty: 90 2RF Dose Instruction: TAKE 1 TABLET BY MOUTH EVERY DAY Rx Instructions: TAKE 1 TABLET BY MOUTH EVERY DAY atorvastatin 40 mg tablet See Rx Instructions .ROUTE .COMPLEX Qty: 90 2RF Dose Instruction: TAKE 1 TABLET BY MOUTH EVERY DAY Rx Instructions: TAKE 1 TABLET BY MOUTH EVERY DAY potassium chloride 20 mEq tablet extended release 20 meq PO DAILY Qty: 90 2RF lisinopril 10 mg tablet See Rx Instructions .ROUTE .COMPLEX Qty: 90 3RF Dose Instruction: TAKE 1 TABLET BY MOUTH EVERY DAY Rx Instructions: TAKE 1 TABLET BY MOUTH EVERY DAY Date of admission: 03/19/25 11:59 Primary Care Provider: Efe Ladd Admitting Provider: Taylor Sethi Attending physician on admission: Taylor Sethi Condition: Guarded Prognosis
== END 2025-03-19 14:15 | disposition home or self-care (01) ==
LOC: ANHED 03-18 01:19 → ANH3MEDSUR 03-19 12:27
PROVIDERS: Admitting Provider General Practice; Emergency Provider Student in an Organized Health Care Education/Training Program; PCP Internal Medicine; Visit Provider Family Medicine
DX: J18.9 Pneumonia, unspecified organism (principal); J44.1 Chronic obstructive pulmonary disease with (acute) exacerbation; J96.11 Chronic respiratory failure with hypoxia; Z99.81 Dependence on supplemental oxygen; R82.90 Unspecified abnormal findings in urine; E55.9 Vitamin D deficiency, unspecified; E03.9 Hypothyroidism, unspecified; Z85.42 Personal history of malignant neoplasm of other parts of uterus; F41.8 Other specified anxiety disorders; K21.9 Gastro-esophageal reflux disease without esophagitis; E78.2 Mixed hyperlipidemia; Z87.891 Personal history of nicotine dependence; G47.33 Obstructive sleep apnea (adult) (pediatric); Z20.822 Contact with and (suspected) exposure to COVID-19
CPT/HCPCS: 36415; 71045; 71275; 80048; 80053; 81001; 82803; 83605; 83690; 83735; 83880; 84132; 84145; 84439; 84443; 84480; 84484; 85025; 85027; 85610; 85730; 86140; 87086; 87637; 87641; 93005; 94640; 96361; 96365; 96367; 99285; A9270; J0456; J0696; J2919; J7030; J7050; Q9967